=== PATIENT | male | born 1990 | race Caucasian/White ===

== ENCOUNTER 2020-08-04 15:24 | Emergency (ER) | payer BC, SELFPAY ==
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
[2020-08-04 15:46] VITALS: BP 125/81; PULSE 104; RESP 20; TEMP 36.9; O2SAT 98
== END 2020-08-04 16:34 | disposition home or self-care (01) ==
PROVIDERS: Emergency Provider Nurse Practitioner Family
DX: L03.012 Cellulitis of left finger (principal); S60.012A Contusion of left thumb without damage to nail, initial encounter; W23.0XXA Caught, crushed, jammed, or pinched between moving objects, initial encounter; F17.200 Nicotine dependence, unspecified, uncomplicated
CPT/HCPCS: 73130; 99213; G0463

== ENCOUNTER 2020-08-04 15:28 | Emergency (ER) | payer BC, SELFPAY | END 2020-08-04 16:00 | disposition left against medical advice (07) | LOC: ANHED 08-05 00:55 | DX: Z53.21 Procedure and treatment not carried out due to patient leaving prior to being seen by health care provider (principal) | CPT/HCPCS: 99199 ==

== ENCOUNTER 2021-06-08 03:48 | Inpatient (IN) | payer BC, SELFPAY ==
[2021-06-08] VITALS (19 sets, daily range): BP systolic 117–151; BP diastolic 78–108; PULSE 54–103; RESP 12–23; TEMP 36.4–36.7; O2SAT 96–100; BMI 20.2
--- NOTE | ~2021-06-08 | CT_ITS ---
EXAMINATION: 1. CT facial & cervical spine wo DATE: 06/08/2021 05:03 INDICATION: Fall with head injury TECHNIQUE: 1. Computed tomography (CT) of the maxillofacial region and of the cervical spine were performed with out intravenous contrast. Sagittal and coronal reconstructions of both regions were obtained. Automat ed exposure control and iterative reconstruction technique were employed. The dose-length product was 369.33 mGy-cm. COMPARISON: None. FINDINGS: Maxillofacial CT: Soft tissue swelling in the left periorbital and pre malar subcutaneous tissues. No post septal infla mmatory stranding. No maxillofacial fractures. Specifically the lipscomb of the orbits, paranasal sinuse s, the nasal bones, zygomatic arches, mandible and pterygoid plates are all intact. Temporomandibular joints are normal alignment. Nasal septum is midline. Periapical lucency surrounding the roots of th e anterior most left maxillary molar with erosion into the floor of the left maxillary sinus. There i s adjacent mild mucosal thickening along the inferior left maxillary sinus. Additional small mucous r etention cyst in the more anterior left maxillary sinus. Cervical spine CT: Straightening of the normal cervical lordosis which is likely positional although could be seen with muscle spasm. Mild diffuse vertebral body height loss at C5 and C6 which could be either developmenta l or sequela of chronic trauma. No acute fractures identified. Disc heights are normal. Minimal to mi ld cervical facet osteoarthritis most prominent on the left at C4-C5. No central canal or neural fora patricia stenosis. Cervical soft tissues are unremarkable. Visualized airway and apices of lungs are mekhi ar. IMPRESSION: 1. Paravertebral soft tissue swelling. No maxillofacial fractures. 2. Chronic appearing mild diffuse vertebral body height loss at C5 and C6 which could be either devel opmental or sequela of old trauma. No acute osseous abnormality. Reviewed, dictated and finalized at location A. IMPRESSION: 1. Paravertebral soft tissue swelling. No maxillofacial fractures. 2. Chronic appearing mild diffuse vertebral body height loss at C5 and C6 which could be either developmental or sequela of old trauma. No acute osseous abnor mality.
--- NOTE | ~2021-06-08 | CT_ITS ---
EXAMINATION: CT brain wo con DATE: 06/08/2021 05:02 INDICATION: Head injury post fall with bruising at the left eye TECHNIQUE: Computed tomography (CT) of the head was performed without intravenous contrast. Sagittal and coronal reconstructions were performed. The mA was adjusted according to patient size. Iterative reconstruction technique was employed. The dose-length product was 605.33 mGy-cm. COMPARISON: head CT dated 10/19/2019 FINDINGS: Left periorbital soft tissue swelling. The orbits are otherwise normal with no post septal inflammato ry stranding. No fracture. No acute intracranial hemorrhage, acute infarction or abnormal extra axial fluid collection. Ventricles are normal and symmetric. No mass/mass effect. The paranasal sinuses an d mastoid air cells are normal. IMPRESSION: 1. No fracture or acute intracranial process. Reviewed, dictated and finalized at location A.
--- NOTE | ~2021-06-08 | CT_ITS ---
EXAMINATION: CT abdomen pelvis w con EXAM DATE: 06/08/2021 05:38 INDICATION: Abdominal pain, elevated lipase, and LFT's. TECHNIQUE: Spiral CT of the abdomen and pelvis was performed following intravenous injection of 100 m L Omnipaque 350. Axial, coronal and sagittal images of the abdomen and pelvis were reviewed. The do se-length product (DLP) for this examination was 284.61 mGy-cm. The exposure was tailored according to patient size (auto mA exposure control), and iterative reconstruction (ASIR) was used as additiona l dose reduction technique. There is no prior study for comparison. FINDINGS: There is hepatic steatosis without suspicious focal lesion identified. Spleen, adrenal glan ds, pancreas are unremarkable. Gallbladder is unremarkable. No biliary obstruction. Surgical denny es from right-sided nephrectomy. No left hydronephrosis. The prostate is unremarkable. Some diffuse bladder wall thickening, could indicate chronic cystitis. Acute cystitis not excludable. There is n o retroperitoneal or pelvic lymphadenopathy. There is fat stranding in the right nephrectomy bed, also extending down the colic gutter where the a ppendix happens to be. No appendicitis is suspected. The stomach and small bowel are unremarkable. There is expected amount of colonic stool. No free intraperitoneal gas. The heart is normal in si ze. There are no pericardial or pleural effusions. The lung bases are unremarkable. There are no o steoblastic or osteolytic lesions identified. Right hip gamma nail. IMPRESSION: 1. Hepatic steatosis. 2. Right-sided nephrectomy. Reviewed, dictated and finalized at location B.
--- NOTE | 2021-06-08 04:17 | ECG_ITS ---
Measurements Intervals [place] Rate: 63 P: 68 RI: 136 QRS: 67 QRSD: 85 T: 46 QT: 439 QTc: 452 Interpretive Statements SINUS RHYTHM PEAKED T WAVES- CONSIDER HYPERKALEMIA OR ISCHEMIA BASELINE ARTIFACT- II, III, AVR, AVF, V3-V6 ABNORMAL ECG Electronically Signed On 06-08-2021 8:03:12 CDT by Jonathan Aquino D.O.
--- NOTE | 2021-06-08 04:21 | ED.GENADULT ---
HPI - General Adult General Chief complaint: Alcohol Stated complaint: withdrawls Time Seen by Provider: 06/08/21 04:02 History of Present Illness HPI narrative: Patient 30-year-old gentleman who presents the emergency department with chief complaint of alcohol withdrawal. Patient reports that he has history of alcohol abuse and drinks about a pint today patient reports that he decided to stop drinking several days ago and reports that now he started to feel very shaky has a headache fell several days ago and struck his face against a counter the patient reports that he is concerned that he may be going into withdrawals and has had seizures before in the past and is been complicated before with severe delirium tremens when he was hospitalized at [facility] after a trauma. Related Data Allergies Allergy/AdvReac Type Severity Reaction Status Date / Time Penicillins Allergy Unknown Unknown Verified 06/08/21 04:02 Review of Systems Review of Systems: A 10 system review of systems was completed on the patient and is negative except for what is stated in the HPI. Nursing and ancillary documentation was reviewed. PMFSH Past Medical History Medical History Alcoholism Surgical History Surgical History No significant past surgical history Family History Family History Father Diabetes mellitus Hypertension Other Family history of cardiovascular disease Social History Social History Smoking status: Current every day smoker Alcohol intake: current Gender identity (if verbalized by the patient): Male Exam Narrative: GENERAL: Well-appearing, well-nourished, and in no acute distress. HEAD: Normocephalic, atraumatic. EYES: PERRLA and EOMI. there is ecchymosis around the left orbit ENT: Nares clear, no rhinorrhea or epistaxis. Mucous membranes moist. NECK: Supple. CHEST: Clear to auscultation. No respiratory distress. HEART: Regular rate and rhythm. No murmur heard. Normal peripheral pulses. ABDOMEN: Soft, nontender, nondistended, normal active bowel sounds. EXTREMITIES: Normal range of motion. No edema. SKIN: Warm, dry, no rash. NEURO: No focal deficits. Alert and oriented x3. Patient is tremulous PSYCH: Normal mood and affect. Course Vital Signs Vital signs: Vital Signs Temperature 36.6 C 06/08/21 03:58 Pulse Rate 80 06/08/21 03:58 Respiratory Rate 12 06/08/21 03:58 Blood Pressure 130/91 H 06/08/21 03:58 Pulse Oximetry 99 06/08/21 03:58 Temperature 36.6 C 06/08/21 03:58 Pulse Rate 62 06/08/21 06:55 Respiratory Rate 15 06/08/21 06:55 Blood Pressure 117/86 06/08/21 06:55 Pulse Oximetry 97 06/08/21 06:55 Medical Decision Making Vital Signs Vital Signs: Vital Signs Temperature 36.6 C 06/08/21 03:58 Pulse Rate 80 06/08/21 03:58 Respiratory Rate 12 06/08/21 03:58 Blood Pressure 130/91 H 06/08/21 03:58 Pulse Oximetry 99 06/08/21 03:58 Temperature 36.6 C 06/08/21 03:58 Pulse Rate 62 06/08/21 06:55 Respiratory Rate 15 06/08/21 06:55 Blood Pressure 117/86 06/08/21 06:55 Pulse Oximetry 97 06/08/21 06:55 Lab Data Result diagrams: 06/08/21 04:13 06/08/21 04:13 Labs: Lab Results 06/08/21 06/08/21 06/08/21 Range/Units 04:11 04:13 04:13 WBC 3.2 L (4.5-10.0) K/mm3 RBC 4.46 L (4.6-6.20) M/mm3 Hgb 13.9 L (14.0-18.0) g/dL Hct 39.9 L (42.0-52.0) % MCV 89.5 (80-100) fl MCH 31.2 (26-34) pg MCHC 34.8 (32-36) g/dl RDW 17.0 H (11.5-14.5) % Plt Count 37 L (150-375) k/mm3 MPV 11.2 H (7.4-10.4) fl Immature Gran % (Auto) 0.3 (0-0.5) % Neut % (Auto) 67.1 (45.5-73.1) % Lymph % (Auto) 23.3 (18.3-
[2021-06-08 04:22] LABS: Glucose Point of Care 101 mg/dl (65-105)
[2021-06-08 04:24] LABS: Basophils Percent Auto 0.9 % (0.2-1.2); Eosinophils Percent Auto 0.3 % (0-4.4); Hematocrit 39.9 % (42.0-52.0); Hemoglobin 13.9 g/dL (14.0-18.0); Immature Granulocyte Absolute 0.01 K/mm3 (0.00-0.031); Immature Granulocyte Percent A 0.3 % (0-0.5); Lymphocytes Absolute Auto 0.75 K/mm3 (0.9-3.2); Lymphocytes Percent Auto 23.3 % (18.3-44.2); Mean Corpuscular HGB Conc 34.8 g/dl (32-36); Mean Corpuscular Hemoglobin 31.2 pg (26-34); Mean Corpuscular Volume 89.5 fl (80-100); Mean Platelet Volume 11.2 fl (7.4-10.4); Monocytes Absolute Auto 0.3 K/mm3 (0.1-0.6); Monocytes Percent Auto 8.1 % (2.6-8.5); Neutrophils Absolute Auto 2.2 K/mm3 (1.3-6.7); Neutrophils Percent Auto 67.1 % (45.5-73.1); Platelet Count Result 37 k/mm3 (150-375); Red Blood Count 4.46 M/mm3 (4.6-6.20); White Blood Count 3.2 K/mm3 (4.5-10.0)
[2021-06-08] MEDS: SODIUM CHLORIDE 0.9% IV 1,000 ML 999 ML IV CONT (04:28)
[2021-06-08] MEDS: LORazepam INJ (*CRX) 2 MG/ML VIAL 1 MG IV PUSH ×5 (04:28→20:49)
[2021-06-08] MEDS: THIAMINE HCL 200 MG/2 ML VIAL 100 MG IV PUSH (04:29)
[2021-06-08] MEDS: ONDANSETRON INJ 4 MG/2 ML VIAL IV PUSH (04:29)
[2021-06-08 04:32] LABS: Ethanol 65 mg/dL (<10)
[2021-06-08 04:35] LABS: Alanine Aminotransferase 315 U/L (4-50); Albumin Level 5.2 g/dL (3.5-5.1); Alkaline Phosphatase 210 U/L (38-126); Anion Gap 19 mmol/L (8-16); Aspartate Amino Transferase 742 U/L (17-59); Bilirubin,Total 2.1 mg/dL (0.2-1.3); Blood Urea Nitrogen 6 mg/dL (9-20); Calcium 10.5 mg/dL (8.4-10.2); Carbon Dioxide 24 mmol/L (22-30); Chloride 94 mmol/L (98-107); Estimated CRCL calculation 137 ml/min; Estimated Glomerular Filt Rate > 60; Glucose 111 mg/dL (65-110); Lipase 607 U/L (23-300); Potassium 3.7 mmol/L (3.4-5.0); Sodium 137 mmol/L (137-145)
[2021-06-08 04:57] LABS: Macrocytosis 1+ (NORMAL); Platelet Estimate Decreased (Adequate)
[2021-06-08 05:12] LABS: Add Urine Microscopic? YES; Appearance Urine Clear (Clear); Bilirubin Urine Negative (Negative); Blood Urine Negative (Negative); Color Urine Amber (Yellow); Glucose Urine UA Negative (Negative); Ketones Urine Trace mg/dL (Negative); Leukocyte Esterase Ur Negative LEU/UL (Negative); Nitrate Urine Negative (Negative); Protein Urine 3+ mg/dL (Negative); RBC Urine 0-2 /hpf (0-2); Specific Grav Ur 1.015 (1.001-1.035); WBC Urine 0-3 /hpf
[2021-06-08] MEDS: THIAMINE HCL INJ 100 MG, FOLIC ACID INJ 1 MG, MULTIVITAMINS-12 INJ VIAL 1 5 ML, MULTIVI... 125 MG IV CONT (05:29)
[2021-06-08 05:37] LABS: Amphetamine Screen Urine Negative (Negative); Barbiturate Screen Urine Negative (Negative); Benzodiazepines Screen Urine Negative (Negative); Cannabinoid Screen Urine Positive (Negative); Cocaine Screen Urine Negative (Negative); Methadone Screen Urine Negative (Negative); Opiate Screen Urine Negative (Negative); Phencyclidine Screen Urine Negative (Negative)
[2021-06-08 06:36] LABS: Lipase 635 U/L (23-300)
[2021-06-08 06:40] LABS: Ethanol 66 mg/dL (<10)
[2021-06-08 06:45] LABS: Lactic Acid Reflex 1.5 mmol/L (0.7-2.1)
[2021-06-08 07:03] LABS: Phosphorus 3.8 mg/dL (2.5-4.5)
[2021-06-08 07:35] LABS: INR 0.9; Prothrombin Time 12.5 Seconds (11.1-14.7)
[2021-06-08 07:36] LABS: Partial Thromboplastin Time 28.7 SECONDS (22.3-36.8)
[2021-06-08] MEDS: MAGNESIUM SULF 4 GM/WATER100ML 4 GM/100 ML BAG IVPB (07:48)
--- NOTE | 2021-06-08 08:51 | ADMGEN ---
This patient, Niles Díaz, was admitted to IMU Room 200-01. Patient/family oriented to hospital policies and general routines including ID bracelet, bed and alarms, visiting hours, pain management, procedures, bathroom and other care routines, personal items, smoking policy, room service/diet, and visiting hours. Information on how to activate the Rapid Response Team has been discussed. Patient/Family are encouraged to report perceived risks to care and to ask questions if they do not understand what they are told or what they should do.
[2021-06-08] MEDS: SODIUM CHLORIDE 0.9% IV 1,000 ML 125 ML IV CONT ×2 (09:49→17:32)
[2021-06-08] MEDS: chlordiazePOXIDE (*CRX) 25 MG CAPSULE 50 MG PO ×2 (12:20→17:32)
[2021-06-08] MEDS: ACETAMINOPHEN 325 MG TABLET 650 MG PO (13:27)
[2021-06-08 15:35] LABS: Anion Gap 12 mmol/L (8-16); Blood Urea Nitrogen 6 mg/dL (9-20); Calcium 9.5 mg/dL (8.4-10.2); Carbon Dioxide 25 mmol/L (22-30); Chloride 100 mmol/L (98-107); Estimated CRCL calculation 134 ml/min; Estimated Glomerular Filt Rate > 60; Glucose 91 mg/dL (65-110); Magnesium 2.2 mg/dL (1.6-2.3); Potassium 4.3 mmol/L (3.4-5.0); Sodium 137 mmol/L (137-145)
--- NOTE | 2021-06-08 16:37 | PM.IMHP ---
H&P: HPI History of Present Illness Date/Time: 06/08/21 16:37 Patient is a 30-year-old male with history of alcohol abuse patient has been drinking a pint of liquor every day patient presented emergency depart stated he was stop drinking and has not drank for few days and now is quite tremolos, and patient has history of withdrawal seizures, and patient is high risk of DT, from emergency depart patient was started on Ativan as needed, thiamine folic acid, will continue to monitor with CIWA protocol and add Librium,patient states is feeling little better compared to when he arrived, denies any abdominal pain nausea or vomiting fever or chills, recently patient had fell and has improved along left orbit. Chief Complaint: alcohol withdrawal Review of Systems Review of Systems: All systems reviewed & are unremarkable except as noted in HPI and below PMFSH Past Medical History Medical History Alcoholism Surgical History Surgical History No significant past surgical history Family History Family History Father Diabetes mellitus Hypertension Other Family history of cardiovascular disease Social History Social History Smoking packs per day: 1 Smoking cigarettes per day: 20.0 Years smoked: 6 Smoking pack-years: 6.00 Smoking status: Current every day smoker Tobacco type: cigarettes Alcohol intake: current Substance use: current Substance use type: marijuana Other substance usage details: drinks 1/5 vodka daily - last drink 06/06/21 Last use: 06/06/21 Gender identity (if verbalized by the patient): Male Spiritual care concerns: No Meds Home Medications and Allergies Home Medications Medication Instructions Recorded Confirmed Type No Home Medications 06/08/21 06/08/21 History Allergies Allergy/AdvReac Type Severity Reaction Status Date / Time Penicillins Allergy Unknown Unknown Verified 06/08/21 09:25 Vital Signs Vital Signs - 24 hr 06/08/21 03:58 06/08/21 04:44 06/08/21 05:50 Temperature 98 F Pulse Rate 80 73 75 Respiratory Rate 12 16 14 Blood Pressure 130/91 H 127/78 131/84 Pulse Oximetry 99 100 96 06/08/21 06:55 06/08/21 08:18 06/08/21 09:08 Temperature 98.0 F Pulse Rate 62 101 H 103 H Respiratory Rate 15 19 20 Blood Pressure 117/86 132/79 133/78 Pulse Oximetry 97 100 100 06/08/21 10:00 06/08/21 12:00 06/08/21 12:54 Temperature 97.8 F Pulse Rate 76 78 83 Respiratory Rate 20 Blood Pressure 137/79 Pulse Oximetry 100 06/08/21 14:00 Temperature Pulse Rate 69 Respiratory Rate Blood Pressure Pulse Oximetry Exam Narrative: atient is comfortable, NAD HEENT: eyes are clear and none icteric, bruising along left orbit LUNGS:CTA HEART: RR S1S2 ABD: BS+, Soft and nontender Lower extremities: no edema SKIN: nonjaundiced Neuro: grossly intact. H&P: Results Labs Labs: Short CBC 06/08/21 Range/Units 04:13 WBC 3.2 L (4.5-10.0) K/mm3 Hgb 13.9 L (14.0-18.0) g/dL Hct 39.9 L (42.0-52.0) % Plt Count 37 L (150-375) k/mm3 BMP 06/08/21 06/08/21 04:13 14:42 Sodium 137 137 Potassium 3.7 4.3 Chloride 94 L 100 Carbon Dioxide 24 25 BUN 6 L 6 L Creatinine 0.70 0.70 Glucose 111 H 91 Calcium 10.5 H 9.5 Liver Function 06/08/21 Range/Units 04:13 Total Bilirubin 2.1 H (0.2-1.3) mg/dL AST 742 H (17-59) U/L ALT 315 H (4-50) U/L Alkaline Phosphatase 210 H (38-126) U/L Albumin 5.2 H (3.5-5.1) g/dL Urine 06/08/21 Range/Units 04:55 Urine Color Carmen (Yellow) Urine Appearance Clear (Clear) Urine pH 7.0 (5.0-9.0) Ur Specific [place] 1.015 (1.001-1.035) Urine Protein 3+ H (Negative) mg/dL Urine Glucose (UA) Nega
--- NOTE | 2021-06-08 21:33 | PM.EVENT ---
Event Note Event Note Event Note: I was called by the imu nurse that the patients ciwa score is 28 and the patient is hallucinating and shaking.i called the intentesivist and we plan to move the patient to icu on a precedex drip.
--- NOTE | 2021-06-08 22:34 | PC.NURSE ---
This patient, Niles Díaz, was transferred to ICU3 on 06/08/21 at 2225. Personal belongings sent with patient. Report given to Zina HUFF. Appropriate documentation sent with patient.
[2021-06-08] MEDS: dexmedeTOMIDine 400 MCG/100 ML 400 MCG/100 ML BAG IV CONT (22:36)
--- NOTE | 2021-06-08 22:52 | PC.NURSE ---
This patient, Niles Díaz, was received from [facility] on 06/08/21 at 2220. Patient/family oriented to unit policies and routines
[2021-06-09] VITALS (16 sets, daily range): BP systolic 111–138; BP diastolic 70–99; PULSE 50–140; RESP 12–24; TEMP 36.8–36.9; O2SAT 96–100; BMI 21.7
[2021-06-09] MEDS: chlordiazePOXIDE (*CRX) 25 MG CAPSULE 50 MG PO ×5 (00:35→23:27)
[2021-06-09 01:30] LABS: Glucose Point of Care 87 mg/dl (65-105)
[2021-06-09] MEDS: SODIUM CHLORIDE 0.9% IV 1,000 ML 125 ML IV CONT ×2 (01:43→10:23)
[2021-06-09 04:32] LABS: Hematocrit 37.1 % (42.0-52.0); Hemoglobin 12.4 g/dL (14.0-18.0); Immature Platelet Fraction Pct 11.3 % (0.9-11.2); Mean Corpuscular HGB Conc 33.4 g/dl (32-36); Mean Corpuscular Hemoglobin 30.8 pg (26-34); Mean Corpuscular Volume 92.1 fl (80-100); Mean Platelet Volume 9.3 fl (7.4-10.4); Platelet Count Result 33 k/mm3 (150-375); Red Blood Count 4.03 M/mm3 (4.6-6.20); Red Cell Distribution Width 16.8 % (11.5-14.5); White Blood Count 2.9 K/mm3 (4.5-10.0)
[2021-06-09 05:10] LABS: Alanine Aminotransferase 230 U/L (4-50); Albumin Level 4.1 g/dL (3.5-5.1); Alkaline Phosphatase 158 U/L (38-126); Anion Gap 11 mmol/L (8-16); Aspartate Amino Transferase 491 U/L (17-59); Bilirubin,Total 1.5 mg/dL (0.2-1.3); Blood Urea Nitrogen 6 mg/dL (9-20); Calcium 9.5 mg/dL (8.4-10.2); Carbon Dioxide 22 mmol/L (22-30); Chloride 105 mmol/L (98-107); Estimated CRCL calculation 155 ml/min; Estimated Glomerular Filt Rate > 60; Glucose 99 mg/dL (65-110); Magnesium 1.9 mg/dL (1.6-2.3); Potassium 3.7 mmol/L (3.4-5.0); Sodium 138 mmol/L (137-145)
--- NOTE | 2021-06-09 11:01 | WPDCNINT ---
Assessment and Plan Assessment and plan (1) Alcohol withdrawal syndrome: Qualifiers: Complication of substance-induced condition: uncomplicated Qualified Code(s): F10.230 - Alcohol dependence with withdrawal, uncomplicated Code(s): F10.239 - Alcohol dependence with withdrawal, unspecified Status: Acute Assessment and Plan: Patient presented to the ER 06/08/2021 with complains of tremors, headaches and possible hallucinations secondary to alcohol withdrawal as he stopped drinking a few days back. - he normally drinks about a pint of hard liquor daily. -patient was hallucinating last night along with getting agitated, patient was transferred to the ICU for Precedex infusion -currently receiving Librium and weaning the Precedex infusion -he is on Ativan 2 mg IV Q 2 p.r.n. -continue to monitor his CIWA score (2) Thrombocytopenia: Code(s): D69.6 - Thrombocytopenia, unspecified Status: Acute Assessment and Plan: Thrombocytopenia likely related to alcoholism and depressed bone marrow function due to alcohol abuse -no active bleed noted, will continue to monitor (3) Leukopenia: Code(s): D72.819 - Decreased white blood cell count, unspecified Status: Acute Assessment and Plan: Likely related to alcoholism, continue to monitor (4) Elevated LFTs: Code(s): R79.89 - Other specified abnormal findings of blood chemistry Status: Acute Assessment and Plan: CT scan of the abdomen and pelvis showed hepatic steatosis, right-sided nephrectomy -LFTs could be elevated related to her alcoholism as well as hepatic steatosis -continue to monitor -patient has hyperbilirubinemia which could be related to alcoholic liver disease, will continue to monitor (5) Head injury: Code(s): S09.90XA - Unspecified injury of head, initial encounter Status: Acute Assessment and Plan: Patient stated he hit his head on the counter, CT scan of the head did not show any acute intracranial process or fractures -CT scan of the cervical spine and facial bones showed paravertebral soft tissue swelling, no maxillofacial fractures. Chronic appearing mild diffuse little body height loss at C5 and C6 which could be either development of sequela of old trauma. No osseous abnormalities - Additional Plan Discussed with patient updated with his condition and plan of care. He is aware that he is on Precedex infusion which is being weaned. Patient currently is not hungry but loss for food when needed Code status: Full code Critical care time spent: 43 minutes This dictation may have been done utilizing a voice recognition system. Attempts have been made to correct errors. However, there may be uncorrected grammatical, spelling, and recognition errors present. Due to a high probability of clinically significant, life threatening deterioration, the patient required my highest level of preparedness to intervene emergently and I personally spent this critical care time directly and personally managing the patient. This critical care time included obtaining a history; examining the patient; pulse oximetry; ordering and review of studies; arranging urgent treatment with development of a management plan; evaluation of patient's response to treatment; frequent reassessment; and discussions with other providers. It was exclusive of separately billable procedures and treating other patients and teaching time. Please see Assessment and Plan section and the rest of the note for further information on patient assessment and treatment [employer] Consult Note Consult date: 06/09/21 Time Seen: 07:04 Reason for consult: Alcohol withdrawal, agitation, hallucination, possible DTs HPI: Niles Díaz is a 30 year old male with significant past medical history of alcohol abuse, presented the ED on 06/08/2021 with complaints of alcohol withdrawal. Patient states he drinks about a pt and a and imported into
[2021-06-09] MEDS: LORazepam INJ (*CRX) 2 MG/ML VIAL IV PUSH ×4 (12:36→23:00)
[2021-06-09] MEDS: polyethylene glycoL 3350 17 GM POWD.PACK PO (18:15)
[2021-06-10] VITALS (11 sets, daily range): BP systolic 127–151; BP diastolic 84–99; PULSE 59–99; RESP 16–20; TEMP 36.2–37.3; O2SAT 100
[2021-06-10] MEDS: LORazepam INJ (*CRX) 2 MG/ML VIAL IV PUSH ×4 (03:41→20:13)
[2021-06-10 04:33] LABS: Hematocrit 38.3 % (42.0-52.0); Hemoglobin 13.1 g/dL (14.0-18.0); Immature Platelet Fraction Pct 9.9 % (0.9-11.2); Mean Corpuscular HGB Conc 34.2 g/dl (32-36); Mean Corpuscular Hemoglobin 31.6 pg (26-34); Mean Corpuscular Volume 92.3 fl (80-100); Mean Platelet Volume 11.2 fl (7.4-10.4); Platelet Count Result 56 k/mm3 (150-375); Red Blood Count 4.15 M/mm3 (4.6-6.20); Red Cell Distribution Width 16.8 % (11.5-14.5); White Blood Count 3.7 K/mm3 (4.5-10.0)
[2021-06-10 04:44] LABS: Alanine Aminotransferase 269 U/L (4-50); Albumin Level 4.3 g/dL (3.5-5.1); Alkaline Phosphatase 175 U/L (38-126); Anion Gap 10 mmol/L (8-16); Aspartate Amino Transferase 457 U/L (17-59); Bilirubin,Total 1.1 mg/dL (0.2-1.3); Blood Urea Nitrogen 6 mg/dL (9-20); Calcium 9.9 mg/dL (8.4-10.2); Carbon Dioxide 25 mmol/L (22-30); Chloride 103 mmol/L (98-107); Estimated CRCL calculation 144 ml/min; Estimated Glomerular Filt Rate > 60; Glucose 94 mg/dL (65-110); Magnesium 1.8 mg/dL (1.6-2.3); Potassium 3.9 mmol/L (3.4-5.0); Sodium 138 mmol/L (137-145)
[2021-06-10] MEDS: chlordiazePOXIDE (*CRX) 25 MG CAPSULE 50 MG PO ×4 (06:05→23:47)
[2021-06-10] MEDS: ACETAMINOPHEN 325 MG TABLET 650 MG PO ×2 (06:13→12:04)
[2021-06-10] MEDS: FOLIC ACID 1 MG TABLET PO (09:23)
[2021-06-10] MEDS: THIAMINE HCL 100 MG TABLET PO (09:23)
--- NOTE | 2021-06-10 09:40 | PM.IMPN ---
Progress Note: A&P Assessment and Plan (1) Alcohol withdrawal syndrome: Qualifiers: Complication of substance-induced condition: uncomplicated Qualified Code(s): F10.230 - Alcohol dependence with withdrawal, uncomplicated Code(s): F10.239 - Alcohol dependence with withdrawal, unspecified Status: Acute Assessment and Plan: Patient presented to the ER 06/08/2021 with complains of tremors, headaches and possible hallucinations secondary to alcohol withdrawal as he stopped drinking a few days back. - he normally drinks about a pint of hard liquor daily. -06/08: Patient was transferred from medical floor to ICU for Precedex infusion due to being agitated, hallucinating and possible DTs due to alcohol withdrawal. - -currently receiving Librium and weaning the Precedex infusion -he is on Ativan 2 mg IV Q 2 p.r.n. -continue to monitor his CIWA score (2) Thrombocytopenia: Code(s): D69.6 - Thrombocytopenia, unspecified Status: Acute Assessment and Plan: Thrombocytopenia likely related to alcoholism and depressed bone marrow function due to alcohol abuse -no active bleed noted, will continue to monitor (3) Leukopenia: Code(s): D72.819 - Decreased white blood cell count, unspecified Status: Acute Assessment and Plan: Likely related to alcoholism, continue to monitor (4) Elevated LFTs: Code(s): R79.89 - Other specified abnormal findings of blood chemistry Status: Acute Assessment and Plan: CT scan of the abdomen and pelvis showed hepatic steatosis, right-sided nephrectomy -LFTs could be elevated related to her alcoholism as well as hepatic steatosis -continue to monitor -patient has hyperbilirubinemia which could be related to alcoholic liver disease, will continue to monitor (5) Head injury: Code(s): S09.90XA - Unspecified injury of head, initial encounter Status: Acute Assessment and Plan: Patient stated he hit his head on the counter, CT scan of the head did not show any acute intracranial process or fractures -CT scan of the cervical spine and facial bones showed paravertebral soft tissue swelling, no maxillofacial fractures. Chronic appearing mild diffuse little body height loss at C5 and C6 which could be either development of sequela of old trauma. No osseous abnormalities - Additional Plan Discussed with patient updated with his condition and plan of care. He is aware that he is on Precedex infusion which is being weaned. Patient currently is not hungry but loss for food when needed Code status: Full code Critical care time spent: 43 minutes This dictation may have been done utilizing a voice recognition system. Attempts have been made to correct errors. However, there may be uncorrected grammatical, spelling, and recognition errors present. Due to a high probability of clinically significant, life threatening deterioration, the patient required my highest level of preparedness to intervene emergently and I personally spent this critical care time directly and personally managing the patient. This critical care time included obtaining a history; examining the patient; pulse oximetry; ordering and review of studies; arranging urgent treatment with development of a management plan; evaluation of patient's response to treatment; frequent reassessment; and discussions with other providers. It was exclusive of separately billable procedures and treating other patients and teaching time. Please see Assessment and Plan section and the rest of the note for further information on patient assessment and treatment Subjective Date/time seen: 06/10/21 09:40 Interval history: 30 year old male with significant past medical history of alcohol abuse, presented the ED on 06/08/2021 with complaints of alcohol withdrawal with symptoms of agitation, hallucinations and possible DTs 06/10/21: Patient was transferred from the medical floor to the ICU
[2021-06-10] MEDS: MAGNESIUM OXIDE 400 MG TABLET PO (10:57)
--- NOTE | 2021-06-10 15:04 | PCPTNOTE ---
Attempted to see patient this afternoon for PT evaluation, patient refused at this time too tired and is going back to sleep, will try again tomorrow.
--- NOTE | 2021-06-10 16:49 | PC.NURSE ---
This patient, Niles Díaz, was transferred to [ 231] on 06/10/21 at 1649. Personal belongings sent with patient. Report given to [ DARIA Obrien @ [phone]]. Appropriate documentation sent with patient.
--- NOTE | 2021-06-10 22:15 | PC.NURSE ---
This patient, Niles Díaz, was transferred to [facility] on 06/10/21 at 2210. Personal belongings sent with patient. Report given to Madhuri. Appropriate documentation sent with patient.
--- NOTE | 2021-06-10 23:10 | PC.NURSE ---
Pt received from IMU report received from Parvin. Pt alert and oriented and introduced to staff.
[2021-06-11] VITALS (10 sets, daily range): BP systolic 120–134; BP diastolic 80–90; PULSE 55–125; RESP 16–18; TEMP 36.4–36.9; O2SAT 94–100
[2021-06-11] MEDS: LORazepam INJ (*CRX) 2 MG/ML VIAL IV PUSH ×4 (00:09→20:43)
[2021-06-11 05:49] LABS: Hemoglobin 12.7 g/dL (14.0-18.0); Mean Corpuscular HGB Conc 33.4 g/dl (32-36); Mean Corpuscular Hemoglobin 31.5 pg (26-34); Mean Corpuscular Volume 94.3 fl (80-100); Mean Platelet Volume 10.9 fl (7.4-10.4); Platelet Count Result 87 k/mm3 (150-375); Red Blood Count 4.03 M/mm3 (4.6-6.20); Red Cell Distribution Width 17.1 % (11.5-14.5); White Blood Count 4.3 K/mm3 (4.5-10.0)
[2021-06-11 05:58] LABS: Alanine Aminotransferase 221 U/L (4-50); Albumin Level 4.2 g/dL (3.5-5.1); Alkaline Phosphatase 148 U/L (38-126); Anion Gap 10 mmol/L (8-16); Aspartate Amino Transferase 263 U/L (17-59); Bilirubin,Total 0.8 mg/dL (0.2-1.3); Blood Urea Nitrogen 8 mg/dL (9-20); Calcium 9.7 mg/dL (8.4-10.2); Carbon Dioxide 24 mmol/L (22-30); Chloride 103 mmol/L (98-107); Estimated CRCL calculation 136 ml/min; Estimated Glomerular Filt Rate > 60; Glucose 90 mg/dL (65-110); Magnesium 1.7 mg/dL (1.6-2.3); Potassium 3.8 mmol/L (3.4-5.0); Sodium 137 mmol/L (137-145)
[2021-06-11] MEDS: chlordiazePOXIDE (*CRX) 10 MG CAPSULE 50 MG PO ×3 (07:30→17:18)
[2021-06-11] MEDS: THIAMINE HCL 100 MG TABLET PO (08:17)
[2021-06-11] MEDS: FOLIC ACID 1 MG TABLET PO (08:17)
--- NOTE | 2021-06-11 16:29 | PM.IMPN ---
Progress Note: A&P Assessment and Plan (1) Alcohol withdrawal syndrome: Qualifiers: Complication of substance-induced condition: uncomplicated Qualified Code(s): F10.230 - Alcohol dependence with withdrawal, uncomplicated Code(s): F10.239 - Alcohol dependence with withdrawal, unspecified Status: Acute Assessment and Plan: 06/11, on 06/08 at night patient went to full DT and was transfer to ICU and placed on Precedex IV, Ativan, and librium pPatient was taken off Precedex on 06/10 remain in the ICU no seen by business support liaison and transferred out of the ICU on 06/11, today patient appears still tremulous, his blood pressure rises with active, he is clinically stable will continue CIWA protocol with Librium, will monitor his electrolytes, will have a PT OT evaluate the patient, if remains clinically stable may discharge patient home tomorrow. (2) Thrombocytopenia: Code(s): D69.6 - Thrombocytopenia, unspecified Status: Acute Assessment and Plan: most likely secondary to alcohol abuse, his platelets are trending up. (3) Elevated LFTs: Code(s): R79.89 - Other specified abnormal findings of blood chemistry Status: Acute Assessment and Plan: most likely secondary to alcohol abuse his LFT is trending down, will order acute hepatitis panel and liver ultrasound. (4) Hypomagnesemia: Code(s): E83.42 - Hypomagnesemia Status: Acute Assessment and Plan: will monitor and supplement Subjective Date/time seen: 06/11/21 16:29 Patient is a 30-year-old male with history of alcohol abuse patient has been drinking a pint of liquor every day patient presented emergency depart stated he was stop drinking and has not drank for few days and now is quite tremolos, and patient has history of withdrawal seizures, and patient is high risk of DT, from emergency depart patient was started on Ativan as needed, thiamine folic acid, will continue to monitor with CIWA protocol and add Librium,patient states is feeling little better compared to when he arrived, denies any abdominal pain nausea or vomiting fever or chills, recently patient had fell and has improved along left orbit. Chief Complaint: alcohol withdrawal 06/11, on 06/08 at night patient went to full DT and was transfer to ICU and placed on Precedex IV, Ativan, and librium pPatient was taken off Precedex on 06/10 remain in the ICU no seen by business support liaison and transferred out of the ICU on 06/11, today patient appears still tremulous, his blood pressure rises with active, he is clinically stable will continue CIWA protocol with Librium, will monitor his electrolytes, will have a PT OT evaluate the patient, if remains clinically stable may discharge patient home tomorrow. Review of Systems Review of Systems: All systems reviewed & are unremarkable except as noted in HPI and below Exam Narrative: atient is comfortable, NAD HEENT: eyes are clear and none icteric, bruising along left orbit LUNGS:CTA HEART: RR S1S2 ABD: BS+, Soft and nontender Lower extremities: no edema SKIN: nonjaundiced Neuro: grossly intact. Objective Data Vital Signs Vital Signs: Vital Signs - 24 hr 06/10/21 17:35 06/10/21 20:00 06/10/21 20:31 Temperature 99.2 F 97.2 F L Pulse Rate 72 71 72 Pulse Rate [Bilateral Pedal (Dorsalis Pedis) Palpation] Pulse Rate [Monitor] 71 Respiratory Rate 18 20 Blood Pressure 127/93 H 141/93 H 141/93 H Pulse Oximetry 100 100 100 06/10/21 22:55 06/11/21 00:00 06/11/21 03:51 Temperature 97.6 F 98.2 F Pulse Rate 59 L 60 55 L Pulse Rate [Bilateral Pedal (Dorsalis Pedis) Palpation] Pulse Rate [Monitor] Respiratory Rate 16 16 Blood Pressure 134/90 122/83 Pulse Oximetry 100 100 06/11/21 04:00 06/11/21 08:00 06/11/21 10:26 Temperature Pulse Rate 69 64 Pulse Rate [Bilateral Pedal (Dorsalis Pedis) Palpation] 63 Pulse Rate [Monitor] 71 Respiratory Rate Blood Pressure P
[2021-06-12] VITALS (9 sets, daily range): BP systolic 107–141; BP diastolic 67–76; PULSE 60–102; RESP 16–18; TEMP 36.1–36.7; O2SAT 96–100
[2021-06-12] MEDS: chlordiazePOXIDE (*CRX) 10 MG CAPSULE 50 MG PO ×5 (00:12→23:56)
[2021-06-12] MEDS: LORazepam INJ (*CRX) 2 MG/ML VIAL IV PUSH (00:15)
[2021-06-12 06:20] LABS: Hematocrit 41.3 % (42.0-52.0); Hemoglobin 13.8 g/dL (14.0-18.0); Immature Platelet Fraction Pct 5.7 % (0.9-11.2); Mean Corpuscular HGB Conc 33.4 g/dl (32-36); Mean Corpuscular Volume 95.8 fl (80-100); Platelet Count Result 149 k/mm3 (150-375); Red Blood Count 4.31 M/mm3 (4.6-6.20); Red Cell Distribution Width 17.6 % (11.5-14.5); White Blood Count 4.8 K/mm3 (4.5-10.0)
[2021-06-12 06:33] LABS: Alanine Aminotransferase 240 U/L (4-50); Albumin Level 4.6 g/dL (3.5-5.1); Alkaline Phosphatase 144 U/L (38-126); Anion Gap 13 mmol/L (8-16); Aspartate Amino Transferase 252 U/L (17-59); Bilirubin,Total 0.8 mg/dL (0.2-1.3); Blood Urea Nitrogen 10 mg/dL (9-20); Calcium 10.2 mg/dL (8.4-10.2); Carbon Dioxide 23 mmol/L (22-30); Chloride 104 mmol/L (98-107); Estimated CRCL calculation 139 ml/min; Estimated Glomerular Filt Rate > 60; Glucose 89 mg/dL (65-110); Magnesium 1.9 mg/dL (1.6-2.3); Potassium 3.7 mmol/L (3.4-5.0); Sodium 140 mmol/L (137-145)
[2021-06-12] MEDS: FOLIC ACID 1 MG TABLET PO (08:04)
[2021-06-12] MEDS: THIAMINE HCL 100 MG TABLET PO (08:04)
--- NOTE | 2021-06-12 13:15 | PM.IMPN ---
Progress Note: A&P Assessment and Plan (1) Alcohol withdrawal syndrome: Qualifiers: Complication of substance-induced condition: uncomplicated Qualified Code(s): F10.230 - Alcohol dependence with withdrawal, uncomplicated Code(s): F10.239 - Alcohol dependence with withdrawal, unspecified Status: Acute Assessment and Plan: 06/08 at night patient went to full DT and was transfer to ICU and placed on Precedex IV, Ativan, and librium Patient was taken off Precedex on 06/10 remain in the ICU no seen by balancer scale and transferred out of the ICU on 06/11 Requested excessive lorazepam overnight (in spite of receiving chlordiazepoxide 50mg PO q 6h scheduled) Has no definite discharge plan for f/u for mental health or alcohol related issues ( My mom is working on it. ) Last episode of alcohol w/d lasted 15 days (per patient hx) Has hx of DEPRESSION AND ANXIETY that is currently untreated Would benefit from INPATIENT rehab NOT mentally stable for discharge to home (2) Thrombocytopenia: Code(s): D69.6 - Thrombocytopenia, unspecified Status: Acute Assessment and Plan: most likely secondary to alcohol abuse, his platelets are trending up. (3) Elevated LFTs: Code(s): R79.89 - Other specified abnormal findings of blood chemistry Status: Acute Assessment and Plan: most likely secondary to alcohol abuse his LFT is trending down Hepatitis ABC panel negative (4) Hypomagnesemia: Code(s): E83.42 - Hypomagnesemia Status: Acute Assessment and Plan: Received supplementation Subjective Date/time seen: 06/12/21 13:15 Interval history: Admitted 06/08 AM for alcohol w/d. 06/12 visit: Required multiple doses of lorazepam for anxiety overnight. Wants to go home. Denied pain, sob, swelling, rash, bleeding, gi/gu issues. Review of Systems Review of Systems: All systems reviewed & are unremarkable except as noted in HPI and below Exam Narrative: HEENT: PERRL, sclerae nonicteric, pharyngeal mucosa pink and intact NECK: No JVD CHEST: Clear to auscultation. Normal effort. HEART: NL S1/S2, regular, no murmur ABDOMEN: BS+, soft, nontender, no mass, no bruits EXTREMITIES: No cyanosis, edema, or clubbing NEUROLOGIC: CN intact and symmetric to inspection. MUSCULOSKELETAL: Tone and strength symmetric. PSYCH: Alert. Oriented to person, place, and time. ANXIOUS. Objective Data Vital Signs Vital Signs: Vital Signs - 24 hr 06/11/21 13:57 06/11/21 16:00 06/11/21 20:00 Temperature 98.1 F Pulse Rate 99 75 65 Respiratory Rate 18 Blood Pressure 126/80 Pulse Oximetry 99 06/11/21 21:07 06/12/21 00:00 06/12/21 04:00 Temperature 98.4 F Pulse Rate 63 63 60 Respiratory Rate 16 Blood Pressure 120/86 Pulse Oximetry 100 06/12/21 05:32 06/12/21 08:00 06/12/21 12:00 Temperature 96.9 F L Pulse Rate 60 64 77 Respiratory Rate 16 Blood Pressure 107/67 Pulse Oximetry 100 Intake/Output Intake/Output: Intake & Output 06/09/21 06/10/21 06/11/21 06/12/21 23:59 23:59 23:59 23:59 Intake Total 6334 2340 920 390 Output Total 3475 2300 700 500 Balance 2915 40 220 -110 Meds/Results Medications: Active Medications Generic Name Dose Route Start Last Admin Trade Name Freq PRN Reason Stop Dose Admin Acetaminophen 650 mg 06/08/21 12:30 06/10/21 12:04 Acetaminophen 325 Mg Tablet PO 650 mg Q6H PRN Administration Mild Pain (1-3) or Fever Chlordiazepoxide HCl 50 mg 06/11/21 07:00 06/12/21 12:02 Chlordiazepoxide (*Crx) 10 Mg Capsule PO 50 mg Q6HR CAYLA Administration Folic Acid 1 mg 06/10/21 09:00 06/12/21 08:04 Folic Acid 1 Mg Tablet PO 1 mg DAILY CAYLA Administration Lorazepam 2 mg 06/08/21 21:31 06/12/21 00:15 Lorazepam Inj (*Crx) 2 Mg/Ml Vial IV PUSH 2 mg Q2H PRN Administration Alcohol Withdrawal Melatonin 3 mg 06/10/21 14:54 Melatonin 3 Mg Tablet PO HS PRN In
[2021-06-13] VITALS: PULSE 74
[2021-06-13 04:00] VITALS: PULSE 87
[2021-06-13 05:33] LABS: Hematocrit 40.3 % (42.0-52.0); Hemoglobin 13.4 g/dL (14.0-18.0); Mean Corpuscular HGB Conc 33.3 g/dl (32-36); Mean Corpuscular Hemoglobin 31.8 pg (26-34); Mean Corpuscular Volume 95.5 fl (80-100); Mean Platelet Volume 9.5 fl (7.4-10.4); Platelet Count Result 156 k/mm3 (150-375); Red Blood Count 4.22 M/mm3 (4.6-6.20); Red Cell Distribution Width 17.9 % (11.5-14.5); White Blood Count 5.3 K/mm3 (4.5-10.0)
[2021-06-13] MEDS: chlordiazePOXIDE (*CRX) 10 MG CAPSULE 50 MG PO (05:52)
[2021-06-13 05:55] LABS: Alanine Aminotransferase 235 U/L (4-50); Albumin Level 4.7 g/dL (3.5-5.1); Alkaline Phosphatase 143 U/L (38-126); Anion Gap 13 mmol/L (8-16); Aspartate Amino Transferase 195 U/L (17-59); Bilirubin,Total 0.6 mg/dL (0.2-1.3); Blood Urea Nitrogen 14 mg/dL (9-20); Calcium 10.2 mg/dL (8.4-10.2); Carbon Dioxide 24 mmol/L (22-30); Chloride 103 mmol/L (98-107); Estimated CRCL calculation 123 ml/min; Estimated Glomerular Filt Rate > 60; Glucose 98 mg/dL (65-110); Magnesium 1.9 mg/dL (1.6-2.3); Potassium 4.1 mmol/L (3.4-5.0); Sodium 140 mmol/L (137-145)
[2021-06-13 06:00] VITALS: BP 114/67; PULSE 63; RESP 21; TEMP 36.9; O2SAT 100
[2021-06-13 07:09] LABS: Hepatitis B Surface Antigen Negative (Negative)
[2021-06-13 07:14] LABS: HAV RESULT Negative (Negative)
[2021-06-13 07:27] LABS: Hepatitis C Virus Antibody Negative (Negative)
[2021-06-13 08:00] VITALS: PULSE 64
[2021-06-13] MEDS: FOLIC ACID 1 MG TABLET PO (08:08)
[2021-06-13] MEDS: THIAMINE HCL 100 MG TABLET PO (08:08)
--- NOTE | 2021-06-13 09:58 | PM.DS ---
DS: Admitting Diagnosis Discharge Date June 13, 2021 Admitting Diagnosis Alcohol withdrawal DS: Discharge Diagnosis Discharge Diagnosis (1) Alcohol withdrawal syndrome: Qualifiers: Complication of substance-induced condition: uncomplicated Qualified Code(s): F10.230 - Alcohol dependence with withdrawal, uncomplicated Code(s): F10.239 - Alcohol dependence with withdrawal, unspecified Status: Acute Assessment and Plan: 06/08 at night patient went to full DT and was transfer to ICU and placed on Precedex IV, Ativan, and librium Patient was taken off Precedex on 06/10 remain in the ICU no seen by cook camp and transferred out of the ICU on 06/11 Requested excessive lorazepam overnight (in spite of receiving chlordiazepoxide 50mg PO q 6h scheduled) Has no definite discharge plan for f/u for mental health or alcohol related issues ( My mom is working on it. ) Last episode of alcohol w/d lasted 15 days (per patient hx) Has hx of DEPRESSION AND ANXIETY that is currently untreated Would benefit from INPATIENT rehab D/w patient. he has a list of programs and his mother are looking at 1 in [place] he agrees to have a plan in place within the next 48 hours he is not to drink with his Librium and is to have follow-up arranged within the next 48 hours (2) Thrombocytopenia: Code(s): D69.6 - Thrombocytopenia, unspecified Status: Acute Assessment and Plan: most likely secondary to alcohol abuse, his platelets are trending up. (3) Elevated LFTs: Code(s): R79.89 - Other specified abnormal findings of blood chemistry Status: Acute Assessment and Plan: most likely secondary to alcohol abuse his LFT is trending down Hepatitis ABC panel negative (4) Hypomagnesemia: Code(s): E83.42 - Hypomagnesemia Status: Acute Assessment and Plan: Received supplementation DS: Summary Hospital Course Reason for hospitalization: Alcohol withdrawal Hospital Course: Patient was seen and examined on June 13, 2021 He was admitted with acute alcohol withdrawal. He worsened and required intensive care treatment with Precedex drip as noted below. He was transition to p.o. Librium with p.r.n. Ativan. He did not require any IV Ativan the 24 hours prior to discharge. He was alert oriented and able to perform ADLs independently. He was tolerating his diet. Time Spent with Patient Time attestation: Total time spent providing and/or coordinating discharge services: Exam Narrative: HEENT: PERRL, sclerae nonicteric, pharyngeal mucosa pink and intact NECK: No JVD CHEST: Clear to auscultation. Normal effort. HEART: NL S1/S2, regular, no murmur ABDOMEN: BS+, soft, nontender, no mass, no bruits EXTREMITIES: No cyanosis, edema, or clubbing NEUROLOGIC: CN intact and symmetric to inspection. MUSCULOSKELETAL: Tone and strength symmetric. PSYCH: Alert. Oriented to person, place, and time. ANXIOUS. DS: Data Data Completed and Pending Labs on day of discharge: Labs from last 24 hours 06/13/21 06/13/21 06/13/21 04:58 04:58 04:58 WBC 5.3 RBC 4.22 L Hgb 13.4 L Hct 40.3 L MCV 95.5 MCH 31.8 MCHC 33.3 RDW 17.9 H Plt Count 156 MPV 9.5 Sodium 140 Potassium 4.1 Chloride 103 Carbon Dioxide 24 Anion Gap 13 BUN 14 Creatinine 0.80 Estim Creat Clear Calc 123 Estimated GFR > 60 Glucose 98 Calcium 10.2 Magnesium 1.9 Total Bilirubin 0.6 AST 195 H ALT 235 H Alkaline Phosphatase 143 H Total Protein 8.0 Albumin 4.7 Hepatitis A IgM Ab Negative Hep Bs Antigen Negative Hepatitis C Ab Screen Negative Discharge Plan Discharge Discharging Clinician: Philip Agarwal Patient Disposition: Home, Self-Care Activity: no driving Diet: regular Discharge Instructions: Per Care Coordination: Please contact [facility] to start inpatient rehabilitation for alcohol at
[2021-06-13] MEDS: chlordiazePOXIDE (*CRX) 25 MG CAPSULE PO (11:29)
== END 2021-06-13 12:10 | disposition home or self-care (01) | DRG 897 ==
LOC: ANHED 07:25 → ANHIMU 08:03 → ANHICU 22:13 → ANH2MED 06-11 14:59 → ANHICU 06-16 09:35 → ANHIMU 06-16 09:35
PROVIDERS: Admitting Provider Family Medicine; Emergency Provider Emergency Medicine; Visit Provider Internal Medicine
DX: F10.230 Alcohol dependence with withdrawal, uncomplicated (principal); D69.6 Thrombocytopenia, unspecified; S09.90XA Unspecified injury of head, initial encounter; W19.XXXA Unspecified fall, initial encounter; R79.89 Other specified abnormal findings of blood chemistry; E83.42 Hypomagnesemia; F17.210 Nicotine dependence, cigarettes, uncomplicated; D72.819 Decreased white blood cell count, unspecified
CPT/HCPCS: 36415; 70450; 70486; 72125; 74177; 80048; 80053; 80307; 81001; 82948; 83605; 83690; 83735; 84100; 85025; 85027; 85055; 85610; 85730; 86709; 86803; 87340; 93005; 96361; 96365; 96366; 96375; 96376; 97110; 97116; 97161; 97165; 97530; 99285; A9270; G0378; J2060; J2405; J3411; J3475; J7030; Q9967

== ENCOUNTER 2022-01-17 16:04 | Inpatient (IN) | payer BC, SELFPAY ==
--- NOTE | ~2022-01-17 | CT_ITS ---
EXAMINATION: CT abdomen pelvis w con INDICATION: Abdominal pain TECHNIQUE: Computed tomographic images of the abdomen and pelvis were obtained after the administrati on of 100 cc of Omnipaque 350 intravenous contrast. The dose-length product (DLP) was 421.76 mGy-cm. Automated exposure control and iterative reconstruction technique were employed. COMPARISON: 06/08/2021 FINDINGS: The lung bases are clear. The heart size is normal. The liver is diffusely low in attenuati on when compared with the spleen, consistent with hepatic steatosis. The spleen, pancreas, gallbladde r, and adrenal glands are normal. 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 The left kidney is unremark able. No pathologically enlarged abdominal or pelvic lymph nodes are identified. There is no free int raperitoneal gas or evidence of bowel obstruction. The appendix is normal. There is antegrade intrame dullary carmella and interlocking intratrochanteric screw fixation of the right femur. There is a healing left 10th rib fracture. There is an age-indeterminate right ninth rib fracture. IMPRESSION: 1. No CT correlate for the patient's symptoms. 2. Diffuse hepatic steatosis. 3. Bilateral rib fractures, healing on the left. Reviewed, dictated and finalized at location F.
--- NOTE | ~2022-01-17 | XR_ITS ---
EXAMINATION: XR chest 1V portable INDICATION: Chest pain TECHNIQUE: Portable AP chest at 1726 hours COMPARISON: 11/07/2016 FINDINGS: There are minimal opacities of the left midlung zone. There is no pleural effusion or pneum othorax. The cardiomediastinal silhouette is normal. The osseous structures are unremarkable. IMPRESSION: 1. Minimal airspace opacities of the left midlung zone, consistent with atelectasis versus pneumonia. Reviewed, dictated and finalized at location F. IMPRESSION: 1. Minimal airspace opacities of the left midlung zone, consistent with atelect asis versus pneumonia.
--- NOTE | ~2022-01-17 | XR_ITS ---
EXAMINATION: XR femur RT min 2V DATE: 01/20/2022 10:24 INDICATION: Right thigh pain. TECHNIQUE: 2 views of right femur on 4 radiographs were obtained. COMPARISON: None. FINDINGS: Bone alignment is normal. There is an old healed fracture of proximal right femur with ante grade intramedullary carmella, distal interlocking screw, and femoral head/neck screw. There is heterotopi c ossification about proximal femur. No acute fracture. Joint spaces are normal. No knee joint effusi on. IMPRESSION: 1. No acute fracture. Reviewed, dictated and finalized at location A. IMPRESSION: 1. No acute fracture.
[2022-01-17 16:23] VITALS: BP 141/100; PULSE 147; RESP 20; TEMP 37; O2SAT 100
[2022-01-17 16:38] VITALS: BP 160/106; PULSE 110; RESP 23; O2SAT 99
[2022-01-17 16:39] LABS: Basophils Absolute Auto 0.1 K/mm3 (0.0-0.1); Basophils Percent Auto 1.2 % (0.2-1.2); Eosinophils Percent Auto 0.1 % (0-4.4); Hematocrit 44.1 % (42.0-52.0); Hemoglobin 15.8 g/dL (14.0-18.0); Immature Granulocyte Absolute 0.02 K/mm3 (0.00-0.031); Immature Granulocyte Percent A 0.2 % (0-0.5); Lymphocytes Absolute Auto 2.35 K/mm3 (0.9-3.2); Lymphocytes Percent Auto 25.3 % (18.3-44.2); Mean Corpuscular HGB Conc 35.8 g/dl (32-36); Mean Corpuscular Hemoglobin 33.8 pg (26-34); Mean Corpuscular Volume 94.2 fl (80-100); Mean Platelet Volume 9.5 fl (7.4-10.4); Monocytes Absolute Auto 0.4 K/mm3 (0.1-0.6); Monocytes Percent Auto 4.5 % (2.6-8.5); Neutrophils Absolute Auto 6.4 K/mm3 (1.3-6.7); Neutrophils Percent Auto 68.7 % (45.5-73.1); Platelet Count Result 206 k/mm3 (150-375); Red Blood Count 4.68 M/mm3 (4.6-6.20); Red Cell Distribution Width 13.2 % (11.5-14.5); White Blood Count 9.3 K/mm3 (4.5-10.0)
--- NOTE | 2022-01-17 16:48 | ED.GIBLEED ---
HPI - GI Bleed General Chief complaint: GI Bleed Stated complaint: dehydrated Time Seen by Provider: 01/17/22 16:48 Source: patient Mode of arrival: ambulatory Limitations: no limitations History of Present Illness HPI Narrative: The patient is a 31-year-old male with a history of alcohol abuse, alcohol withdrawal, presenting to the emergency department for evaluation with nausea, vomiting. Patient states that he has felt unwell this morning with intractable nausea and vomiting. Patient reports aching, cramping abdominal pain throughout his abdomen. He reports chills, burning sensation in his chest. Patient states the chest pain has been present since 9 AM this morning. Patient states that he was in a wedding last night drank approximately 1/5 of hard alcohol by himself. Patient states that he typically drinks 1/5 daily. States that he had additional drinks aside from the hard alcohol. Patient states last drink was this morning at 4 AM. Patient states he has been unable to tolerate any oral intake today and has not had much food over the past week. Per my chart review, patient was admitted to this facility in May 2021 for alcohol withdrawal. Patient required ICU stay. Patient's mother came to the emergency department and patient does not wish to have any visitors at this time. Mother states that patient seems to improve while in the hospital and then worsen, with active binge drinking, daily drinking. She states he has a history of alcohol withdrawal seizures and hallucinations. Related Data Home Medications Medication Instructions Recorded Confirmed buspirone mg 01/17/22 folic acid 01/17/22 gabapentin 01/17/22 levetiracetam PO 01/17/22 01/17/22 Allergies Allergy/AdvReac Type Severity Reaction Status Date / Time Penicillins Allergy Unknown Unknown Verified 01/17/22 16:41 Review of Systems Review of Systems: CONSTITUTIONAL: Denies fever, reports chills and diaphoresis EYES: Denies visual changes, redness, or discharge. ENT: Denies rhinorrhea, congestion, sore throat, or otalgia. CARDIOVASCULAR: Reports chest pain without palpitations RESPIRATORY: Denies cough or dyspnea. GASTROINTESTINAL: Reports abdominal pain, nausea and vomiting GENITOURINARY: Denies dysuria or hematuria. SKIN: Denies rash or itching. MUSCULOSKELETAL: Denies back pain, joint pain, or myalgia. NEUROLOGIC: Reports headache and diffuse, nonfocal weakness PMFSH Past Medical History Medical History (Updated 01/17/22 @ 18:37 by Josie Bassett MD) Alcohol withdrawal syndrome Alcoholism Elevated LFTs Head injury Hypomagnesemia Leukopenia Thrombocytopenia Surgical History Surgical History (Updated 01/17/22 @ 17:15 by Josie Bassett MD) No significant past surgical history Family History Family History Father Diabetes mellitus Hypertension Other Family history of cardiovascular disease Social History Social History Smoking packs per day: 1 Smoking cigarettes per day: 20.0 Years smoked: 6 Smoking pack-years: 6.00 Smoking status: Current every day smoker Tobacco type: cigarettes Alcohol intake: current Substance use: current Substance use type: marijuana Other substance usage details: drinks 1/5 vodka daily - last drink 06/06/21 Last use: 06/06/21 Gender identity (if verbalized by the patient): Male Spiritual care concerns: No Exam Narrative: GENERAL: Awake, alert, ill-appearing, tremulous HEAD: Normocephalic, atraumatic. EYES: PERRLA and EOMI. ENT: Nares clear, no rhinorrhea or epistaxis. Mucous membranes dry NECK: Supple. CHEST: No respiratory distress, breathing even and non labored HEART: Tachycardic rate, sinus rhythm ABDOMEN:Non distended, no reproducible tenderness on exam, no guarding, nonrigid, no rebound EXTREMITIES: Normal range of motion. No edema. SK
[2022-01-17 16:49] LABS: Alanine Aminotransferase 46 U/L (4-50); Albumin Level 5.4 g/dL (3.5-5.1); Alkaline Phosphatase 155 U/L (38-126); Anion Gap 23 mmol/L (8-16); Aspartate Amino Transferase 146 U/L (17-59); Bilirubin,Total 1.4 mg/dL (0.2-1.3); Blood Urea Nitrogen 10 mg/dL (9-20); Calcium 9.6 mg/dL (8.4-10.2); Carbon Dioxide 17 mmol/L (22-30); Chloride 101 mmol/L (98-107); Estimated CRCL calculation 99 ml/min; Estimated Glomerular Filt Rate > 60; Glucose 110 mg/dL (65-110); Lipase 302 U/L (23-300); Potassium 4.1 mmol/L (3.4-5.0); Sodium 141 mmol/L (137-145)
[2022-01-17] MEDS: ONDANSETRON INJ 4 MG/2 ML VIAL IV PUSH (16:55)
[2022-01-17] MEDS: SODIUM CHLORIDE 0.9% IV 1,000 ML 999 ML IV CONT (16:55)
--- NOTE | 2022-01-17 16:58 | PC.NURSE ---
pt unable to urinate at this time
--- NOTE | 2022-01-17 17:09 | ECG_ITS ---
Measurements Intervals [place] Rate: 84 P: 62 MI: 148 QRS: 34 QRSD: 87 T: 20 QT: 349 QTc: 413 Interpretive Statements SINUS RHYTHM WITH MARKED SINUS ARRHYTHMIA POSSIBLE LEFT ATRIAL ENLARGEMENT [-0.1mV P WAVE IN V1/V2] COMPARED TO ECG 06/08/2021 05:20:37 SINUS ARRHYTHMIA NOW PRESENT AND PEAKING OF T WAVES HAVE IMPROVED Electronically Signed On 01-19-2022 13:11:07 CDT by Delmy Ceballos M.D.
[2022-01-17] MEDS: LORazepam INJ (*CRX) 2 MG/ML VIAL IV PUSH ×3 (17:25→21:14)
[2022-01-17] MEDS: diphenhydrAMINE HCl INJ 50 MG/ML VIAL IV PUSH (17:25)
--- NOTE | 2022-01-17 17:32 | PC.NURSE ---
Molly (mom) here. Pt doesn't want her to be in room. Mom provided her number in case we have any questions. [phone]
[2022-01-17 17:38] LABS: Magnesium 1.7 mg/dL (1.6-2.3); Phosphorus 1.9 mg/dL (2.5-4.5)
[2022-01-17 17:49] LABS: Troponin I 0.013 ng/mL (0.000-0.034)
[2022-01-17 17:50] LABS: Troponin I 0.014 ng/mL (0.000-0.034)
[2022-01-17] MEDS: THIAMINE HCL 200 MG/2 ML VIAL 100 MG IV PUSH (18:09)
[2022-01-17] MEDS: FOLIC ACID 1 MG/0.2 ML INJ IV PUSH (18:10)
[2022-01-17 18:32] LABS: Add Urine Microscopic? YES; Appearance Urine Clear (Clear); Bilirubin Urine Negative (Negative); Blood Urine 1+ (Negative); Color Urine Yellow (Yellow); Glucose Urine UA Negative (Negative); Ketones Urine 1+ mg/dL (Negative); Leukocyte Esterase Ur Negative LEU/UL (Negative); Mucus Urine Rare /lpf; Nitrate Urine Negative (Negative); Protein Urine 3+ mg/dL (Negative); Urobilinogen Urine Negative mg/dL (<2.0)
[2022-01-17 18:34] LABS: Specific Grav Ur 1.057 (1.001-1.035)
[2022-01-17 18:42] LABS: Amphetamine Screen Urine Negative (Negative); Barbiturate Screen Urine Negative (Negative); Benzodiazepines Screen Urine Negative (Negative); Cannabinoid Screen Urine Positive (Negative); Cocaine Screen Urine Negative (Negative); Methadone Screen Urine Negative (Negative); Opiate Screen Urine Negative (Negative); Phencyclidine Screen Urine Negative (Negative)
[2022-01-17 19:03] LABS: Ethanol 258 mg/dL (<10)
--- NOTE | 2022-01-17 19:15 | PC.NURSE ---
Assumed care of pt at this time. Pt alert and upright on stretcher, requesting water and food. This RN explained to pt on why he has to remain NPO. Pt verbalized understanding.
[2022-01-17 19:19] VITALS: BP 149/104; PULSE 106; RESP 18; O2SAT 98
[2022-01-17 19:33] VITALS: BP 139/90; PULSE 103; RESP 16; O2SAT 98
[2022-01-17 20:01] VITALS: BP 140/99; PULSE 110; RESP 20; O2SAT 98
[2022-01-17 20:11] LABS: SARS-CoV-2 RNA PCR Negative
--- NOTE | 2022-01-17 20:20 | ADMGEN ---
This patient, Niles Díaz, was admitted to Intensive Care Unit-8 at 2017. Patient/family oriented to hospital policies and general routines including ID bracelet, bed and alarms, visiting hours, pain management, procedures, bathroom and other care routines, personal items, smoking policy, room service/diet, and visiting hours. Information on how to activate the Rapid Response Team has been discussed. Patient/Family are encouraged to report perceived risks to care and to ask questions if they do not understand what they are told or what they should do.
[2022-01-17 20:36] VITALS: BMI 22.9
[2022-01-17] MEDS: FAMOTIDINE 20 MG/2 ML VIAL IV PUSH (21:14)
--- NOTE | 2022-01-17 21:15 | PM.IMHP ---
H&P: HPI History of Present Illness Date/Time: Patient requires inpatient monitoring with expected length of stay to exceed 2 midnights for management of care. 01/17/22 21:15 Chief Complaint: Abdominal pain Narrative: Mr. Díaz is a 31-year-old gentleman who presented emergency room with complaints of abdominal pain, nausea, and vomiting this started around 9:00 a.m. this morning. Patient states he does drink approximately a 5th of vodka or whiskey daily his last week with at approximately 9:00 a.m. this morning. Patient states that he thought he may have had blood in his vomit, but typically when he does not drink and goes into alcohol withdrawal he does hallucinate. Patient states he has felt very shaky today and he feels like he may be going into withdrawals very soon. Patient states he does have a history of seizures with his alcohol withdrawals. Patient states he is feeling significantly improved at this time after receiving IV fluids and Ativan. Patient states that he does drink daily, and does cocaine approximately once monthly as well as marijuana on a routine basis. Patient denies any chest discomfort, shortness of breath, lightheadedness, dizziness, syncopal, or near syncopal episodes. Patient states he does take his gabapentin and Keppra daily for his seizures. Review of Systems Review of Systems: A 12 point review of systems was completed patient all pertinent positive and negative per HPI the remainder are unremarkable. [facility] Past Medical History Medical History (Updated 01/17/22 @ 21:34 by Stacy Estevez APRN) Alcohol withdrawal syndrome Alcoholism Elevated LFTs Head injury Hypomagnesemia Leukopenia Thrombocytopenia Surgical History Surgical History (Updated 01/17/22 @ 17:15 by Josie Bassett MD) No significant past surgical history Family History Family History Father Diabetes mellitus Hypertension Other Family history of cardiovascular disease Social History Social History Smoking packs per day: 1 Smoking cigarettes per day: 20.0 Years smoked: 6 Smoking pack-years: 6.00 Smoking status: Current every day smoker Tobacco type: cigarettes Alcohol intake: current Substance use: current Substance use type: marijuana and crack/cocaine Other substance usage details: drinks 1/5 of whiskey or vodka daily and beer Last use: 01/17/2022 Gender identity (if verbalized by the patient): Male Spiritual care concerns: No Meds Home Medications and Allergies Home Medications Medication Instructions Recorded Confirmed Type buspirone 10 mg PO TID 01/17/22 01/17/22 History chlordiazepoxide HCl 25 mg PO Q6H PRN 01/17/22 01/17/22 History folic acid 1 mg PO DAILY 01/17/22 01/17/22 History gabapentin 300 mg PO TID 01/17/22 01/17/22 History levetiracetam 500 mg PO BID 01/17/22 01/17/22 History Allergies Allergy/AdvReac Type Severity Reaction Status Date / Time Penicillins Allergy Unknown Unknown Verified 01/17/22 16:41 Vital Signs Vital Signs - 24 hr 01/17/22 16:23 01/17/22 16:38 01/17/22 19:19 Temperature 37.0 C Pulse Rate 147 H 110 H 106 H Respiratory Rate 20 23 H 18 Blood Pressure 141/100 H 160/106 H 149/104 H Pulse Oximetry 100 99 98 01/17/22 19:33 01/17/22 20:01 Temperature Pulse Rate 103 H 110 H Respiratory Rate 16 20 Blood Pressure 139/90 140/99 H Pulse Oximetry 98 98 Exam Narrative: Constitutional: Patient is a 31-year-old gentleman who is tremulous and appears anxious at this time. Patient is alert and oriented x3 HEENT: Moist mucous membranes. No scleral icterus. No lymphadenopathy. Neck: No carotid bruits noted no JVD noted Lungs: Lung sounds are clear to auscultation bilaterally. No accessory muscle use. No rhonchi, rales, or wheezes noted. Cardiovascular: Apical pulse is regular rhythm and tachycardic. S1-S2
[2022-01-17] MEDS: THIAMINE HCL INJ 100 MG, FOLIC ACID INJ 1 MG, MULTIVITAMINS-12 INJ VIAL 1 5 ML, MULTIVI... 125 MG IV CONT (21:22)
[2022-01-17 22:00] VITALS: BP 112/98; PULSE 107; RESP 20; O2SAT 99
[2022-01-17] MEDS: levETIRAcetam 500 MG TABLET PO (22:20)
[2022-01-17] MEDS: busPIRone HCL 10 MG TABLET PO (22:20)
[2022-01-17] MEDS: GABAPENTIN 300 MG CAPSULE PO (22:20)
[2022-01-17] MEDS: chlordiazePOXIDE (*CRX) 25 MG CAPSULE PO (22:20)
[2022-01-18] VITALS (15 sets, daily range): BP systolic 116–152; BP diastolic 72–99; PULSE 55–104; RESP 14–116; TEMP 36.6–37.2; O2SAT 96–100
[2022-01-18] MEDS: LORazepam INJ (*CRX) 2 MG/ML VIAL IV PUSH ×6 (02:07→18:31)
[2022-01-18 04:30] LABS: Basophils Absolute Auto 0.1 K/mm3 (0.0-0.1); Basophils Percent Auto 0.6 % (0.2-1.2); Hematocrit 40.6 % (42.0-52.0); Hemoglobin 13.3 g/dL (14.0-18.0); Immature Granulocyte Absolute 0.02 K/mm3 (0.00-0.031); Immature Granulocyte Percent A 0.2 % (0-0.5); Lymphocytes Absolute Auto 1.86 K/mm3 (0.9-3.2); Lymphocytes Percent Auto 20.9 % (18.3-44.2); Mean Corpuscular HGB Conc 32.8 g/dl (32-36); Mean Corpuscular Hemoglobin 33.6 pg (26-34); Mean Corpuscular Volume 102.5 fl (80-100); Mean Platelet Volume 10.1 fl (7.4-10.4); Monocytes Absolute Auto 0.6 K/mm3 (0.1-0.6); Monocytes Percent Auto 6.8 % (2.6-8.5); Neutrophils Absolute Auto 6.4 K/mm3 (1.3-6.7); Neutrophils Percent Auto 71.5 % (45.5-73.1); Platelet Count Result 133 k/mm3 (150-375); Red Blood Count 3.96 M/mm3 (4.6-6.20); Red Cell Distribution Width 13.4 % (11.5-14.5); White Blood Count 8.9 K/mm3 (4.5-10.0)
[2022-01-18 04:38] LABS: Alanine Aminotransferase 40 U/L (4-50); Albumin Level 4.6 g/dL (3.5-5.1); Alkaline Phosphatase 110 U/L (38-126); Anion Gap 15 mmol/L (8-16); Aspartate Amino Transferase 96 U/L (17-59); Bilirubin,Total 1.2 mg/dL (0.2-1.3); Blood Urea Nitrogen 9 mg/dL (9-20); Calcium 8.8 mg/dL (8.4-10.2); Carbon Dioxide 22 mmol/L (22-30); Chloride 104 mmol/L (98-107); Estimated CRCL calculation 108 ml/min; Estimated Glomerular Filt Rate > 60; Glucose 78 mg/dL (65-110); Phosphorus 3.7 mg/dL (2.5-4.5); Potassium 3.6 mmol/L (3.4-5.0); Sodium 141 mmol/L (137-145)
[2022-01-18] MEDS: SODIUM CHLORIDE 0.9% IV 1,000 ML 125 ML IV CONT (05:45)
[2022-01-18] MEDS: chlordiazePOXIDE (*CRX) 25 MG CAPSULE PO (06:20)
[2022-01-18] MEDS: SODIUM CHLORIDE 0.9% IV 1,000 ML 999 ML IV CONT (08:27)
[2022-01-18] MEDS: ENOXAPARIN 40 MG/0.4 ML SYRINGE SUB-Q (08:30)
[2022-01-18] MEDS: levETIRAcetam 500 MG TABLET PO ×2 (08:30→16:41)
[2022-01-18] MEDS: FOLIC ACID 1 MG TABLET PO (08:31)
[2022-01-18] MEDS: GABAPENTIN 300 MG CAPSULE PO ×3 (08:31→16:41)
[2022-01-18] MEDS: FAMOTIDINE 20 MG/2 ML VIAL IV PUSH ×2 (08:31→21:34)
[2022-01-18] MEDS: busPIRone HCL 10 MG TABLET PO ×3 (08:31→16:41)
--- NOTE | 2022-01-18 08:57 | WPDCNINT ---
Assessment and Plan Assessment and plan (1) Alcohol abuse with withdrawal: Code(s): F10.139 - Alcohol abuse with withdrawal, unspecified Status: Acute Assessment and Plan: Patient presented with alcoholism, tremors, abdominal pain, nausea vomiting -this could be related requires alcoholism and all alcohol withdrawal -alcohol levels were 258, and tox screen was positive cannabinoids -continue with CIWA protocol -p.r.n. Ativan 2 mg q.2 hours -will increase Librium -continue thiamine, folic acid, multivitamin (2) Nausea & vomiting: Code(s): R11.2 - Nausea with vomiting, unspecified Status: Acute Assessment and Plan: Resolved -elevated lipase, recheck -will give 1 L IV fluid bolus now and continue maintenance IV fluids (3) Dehydration: Code(s): E86.0 - Dehydration Status: Acute Assessment and Plan: You have additional IV fluid bolus (4) Elevated LFTs: Code(s): R79.89 - Other specified abnormal findings of blood chemistry Status: Acute Assessment and Plan: Likely related to alcoholism, hepatic steatosis and CT scan of the abdomen and pelvis Additional Plan DVT prophylaxis: Enoxaparin Nutrition: Regular diet Code status: Full code Critical care time spent: 43 minutes This dictation may have been done utilizing a voice recognition system. Attempts have been made to correct errors. However, there may be uncorrected grammatical, spelling, and recognition errors present. Due to a high probability of clinically significant, life threatening deterioration, the patient required my highest level of preparedness to intervene emergently and I personally spent this critical care time directly and personally managing the patient. This critical care time included obtaining a history; examining the patient; pulse oximetry; ordering and review of studies; arranging urgent treatment with development of a management plan; evaluation of patient's response to treatment; frequent reassessment; and discussions with other providers. It was exclusive of separately billable procedures and treating other patients and teaching time. Please see Assessment and Plan section and the rest of the note for further information on patient assessment and treatment [employer] Consult Note Consult date: 01/18/22 Time Seen: 07:06 Reason for consult: Alcohol withdrawal, tremors, nausea, vomiting, abdominal pain HPI: Niles Díaz is a 31 year old male with past medical history of alcohol withdrawal syndrome, alcoholism, elevated LFTs, thrombocytopenia presented the ED on 01/17/2022 with complains of nausea, abdominal pain and vomiting. He states he drinks about 5th of vodka, whiskey daily, his last drink was felt 4:00 a.m. on 01/17/2022 where the wedding. Patient was tremulous in the ER. Was given IV fluid bolus, required Ativan and was transferred to the ICU possibility of Precedex infusion. Patient has a CT scan of the abdomen which did not correlate with the patient's symptoms, diffuse hepatic steatosis, bilateral rib fractures, healing on the left. Chest x-ray showed minimal airspace opacities left mid lung zone consistent with atelectasis versus pneumonia. SARS-CoV-2 PCR was negative. Alcohol level was 258, urine toxicology positive for cannabinoids. The ICU this morning, has required 2 doses of Ativan overnight.. Patient is awake, denies any chest pain, shortness a breath, abdominal pain, nausea vomiting at this time. States he is hungry and wants to eat something. Patient is tremulous and has dysarthric speech. Hemodynamically stable, urine output has been adequate, afebrile Review of Systems Review of Systems: All systems reviewed & are unremarkable except as noted in HPI and below PMFSH Past Medical History Medical History (Updated 01/17/22 @ 21:34 by Stacy Estevez APRN) Alcohol withdrawal syndrome Alcoholism Elevated LFTs Head injury Hypomagnesemia Leukopenia Throm
[2022-01-18 09:34] LABS: Lipase 199 U/L (23-300)
[2022-01-18] MEDS: MULTIVITAMINS THERAPEUTIC TAB (*BKC) 1 TABLET PO (09:49)
[2022-01-18] MEDS: ONDANSETRON INJ 4 MG/2 ML VIAL IV PUSH ×2 (09:49→18:32)
[2022-01-18] MEDS: chlordiazePOXIDE (*CRX) 25 MG CAPSULE 50 MG PO ×3 (12:56→23:55)
--- NOTE | 2022-01-18 13:22 | PCFNICU ---
ICU Rounding Note: Pt current nutrition is Regular Last recorded weight is 81.2 kg Bowel Motility:No BM to report. Labs Reviewed:Hct 40.6,Hgb 13.3 Meds Noted: Keppra,MVI, Thiamine, Folic Acid, NS, Ativan, Neurontin Skin: WNL Additional Notes:Dietitian consult for ETOH. Patient has advanced to a regular diet, eating 100% of meals. Agree with diet orders. No further nutritional interventions needed. Following daily in ICU rounds.
[2022-01-18] MEDS: dexmedeTOMIDine 400 MCG/100 ML 400 MCG/100 ML BAG IV CONT (15:48)
--- NOTE | 2022-01-18 16:43 | PM.IMPN ---
Progress Note: A&P Assessment and Plan (1) Alcohol abuse with withdrawal: Code(s): F10.139 - Alcohol abuse with withdrawal, unspecified Status: Acute Assessment and Plan: Placed on CIWA protocol. Ativan p.r.n.. Schedule Librium. Alcohol level at 2:58 a.m.. History of alcoholic hallucinosis/delirium tremens. Precedex drip if needed but seems doing okay with current regimen Continue to monitor closely per protocol. (2) Agitation: Code(s): R45.1 - Restlessness and agitation Status: Acute Assessment and Plan: Secondary to alcohol withdrawal. (3) Nausea & vomiting: Code(s): R11.2 - Nausea with vomiting, unspecified Status: Acute Assessment and Plan: Patient's nausea vomiting is significantly improved. Clear liquid diet currently advance as tolerated CT abdomen and pelvis with diffuse hepatic steatosis. And bilaterally rib fractures healing on the left (4) Dehydration: Code(s): E86.0 - Dehydration Status: Acute Assessment and Plan: Getting IV fluids. (5) Hepatic steatosis: Code(s): K76.0 - Fatty (change of) liver, not elsewhere classified Status: Acute Assessment and Plan: Alcohol-induced Subjective Date/time seen: 01/18/22 16:43 Interval history: HPI:Mr. Díaz is a 31-year-old gentleman who presented emergency room with complaints of abdominal pain, nausea, and vomiting this started around 9:00 a.m. this morning. Patient states he does drink approximately a 5th of vodka or whiskey daily his last week with at approximately 9:00 a.m. this morning. Patient states that he thought he may have had blood in his vomit, but typically when he does not drink and goes into alcohol withdrawal he does hallucinate. Patient states he has felt very shaky today and he feels like he may be going into withdrawals very soon. Patient states he does have a history of seizures with his alcohol withdrawals. Patient states he is feeling significantly improved at this time after receiving IV fluids and Ativan. Patient states that he does drink daily, and does cocaine approximately once monthly as well as marijuana on a routine basis. Patient denies any chest discomfort, shortness of breath, lightheadedness, dizziness, syncopal, or near syncopal episodes. Patient states he does take his gabapentin and Keppra daily for his seizures. 01/18/2022 feels okay. His any complaints. Still shaky. Denies any abdominal pain or nausea vomiting. Review of Systems Review of Systems: All systems reviewed & are unremarkable except as noted in HPI and below Exam Narrative: Constitutional: Patient is mildly tremulous and appears anxious. Patient is alert and oriented x3 HEENT: Moist mucous membranes. No scleral icterus. No lymphadenopathy. Neck: No carotid bruits noted no JVD noted Lungs: Lung sounds are clear to auscultation bilaterally. No accessory muscle use. No rhonchi, rales, or wheezes noted. Cardiovascular: Apical pulse is regular rate and rhythm. S1-S2 noted, no S3 or S4 noted. No gallops, murmurs, or rubs noted. Abdomen: Soft, round, and nontender. No palpable masses. Patient has a large midline abdominal scar noted. Extremities: No edema. Nontender. Skin: No rashes or lesions. Warm and dry. Skin is intact. Neurological: No focal neurological deficits. Cranial nerves II-XII grossly intact. Psychiatric: Cooperative, patient does appear anxious and tremulous. Objective Data Vital Signs Vital Signs: Vital Signs - 24 hr 01/17/22 19:19 01/17/22 19:33 01/17/22 20:01 Temperature Pulse Rate 106 H 103 H 110 H Respiratory Rate 18 16 20 Blood Pressure 149/104 H 139/90 140/99 H Pulse Oximetry 98 98 98 01/17/22 22:00 01/18/22 00:00 01/18/22 02:00 Temperature 98.3 F Pulse Rate 107 H 101 H 94 Respiratory Rate 20 20 20 Blood Pressure 112/98 H 140/88 146/94 H Pulse Oximetry 99 99 100 01/18/22 04:00 01/18/22 06:00 01/18/22 08:
[2022-01-18] MEDS: dexmedeTOMIDine 400 MCG/100 ML 400 MCG/100 ML BAG 14.21 MCG IV CONT (23:54)
[2022-01-19] VITALS (19 sets, daily range): BP systolic 125–150; BP diastolic 74–102; PULSE 60–99; RESP 12–22; TEMP 36.6–37.2; O2SAT 98–100
[2022-01-19 03:46] LABS: Basophils Percent Auto 0.5 % (0.2-1.2); Eosinophils Percent Auto 0.5 % (0-4.4); Hematocrit 37.7 % (42.0-52.0); Hemoglobin 13.7 g/dL (14.0-18.0); Immature Granulocyte Absolute 0.02 K/mm3 (0.00-0.031); Immature Granulocyte Percent A 0.2 % (0-0.5); Immature Platelet Fraction Pct 5.3 % (0.9-11.2); Lymphocytes Absolute Auto 1.08 K/mm3 (0.9-3.2); Lymphocytes Percent Auto 12.9 % (18.3-44.2); Mean Corpuscular HGB Conc 36.3 g/dl (32-36); Mean Corpuscular Hemoglobin 34.5 pg (26-34); Mean Platelet Volume 9.8 fl (7.4-10.4); Monocytes Absolute Auto 0.3 K/mm3 (0.1-0.6); Monocytes Percent Auto 3.5 % (2.6-8.5); Neutrophils Absolute Auto 6.9 K/mm3 (1.3-6.7); Neutrophils Percent Auto 82.4 % (45.5-73.1); Platelet Count Result 120 k/mm3 (150-375); Red Blood Count 3.97 M/mm3 (4.6-6.20); Red Cell Distribution Width 12.8 % (11.5-14.5); White Blood Count 8.4 K/mm3 (4.5-10.0)
[2022-01-19] MEDS: LORazepam INJ (*CRX) 2 MG/ML VIAL IV PUSH (04:19)
[2022-01-19 04:24] LABS: Alanine Aminotransferase 32 U/L (4-50); Albumin Level 4.2 g/dL (3.5-5.1); Alkaline Phosphatase 88 U/L (38-126); Anion Gap 10 mmol/L (8-16); Aspartate Amino Transferase 80 U/L (17-59); Bilirubin,Total 1.4 mg/dL (0.2-1.3); Blood Urea Nitrogen 9 mg/dL (9-20); Calcium 8.7 mg/dL (8.4-10.2); Carbon Dioxide 23 mmol/L (22-30); Chloride 102 mmol/L (98-107); Estimated CRCL calculation 134 ml/min; Estimated Glomerular Filt Rate > 60; Glucose 104 mg/dL (65-110); Lipase 199 U/L (23-300); Magnesium 1.6 mg/dL (1.6-2.3); Phosphorus 2.6 mg/dL (2.5-4.5); Potassium 3.8 mmol/L (3.4-5.0); Sodium 135 mmol/L (137-145)
--- NOTE | 2022-01-19 06:42 | PC.NURSE ---
0635 Patient standing at bedside. Pulled iv tubing apart and removed all monitoring equipment. Helped back to bed and encouraged to remain in bed as per doctor orders.
[2022-01-19] MEDS: dexmedeTOMIDine 400 MCG/100 ML 400 MCG/100 ML BAG 14.21 MCG IV CONT (06:44)
[2022-01-19] MEDS: chlordiazePOXIDE (*CRX) 25 MG CAPSULE 50 MG PO ×4 (06:45→23:01)
[2022-01-19] MEDS: levETIRAcetam 500 MG TABLET PO ×2 (08:37→17:32)
[2022-01-19] MEDS: ENOXAPARIN 40 MG/0.4 ML SYRINGE SUB-Q (08:37)
[2022-01-19] MEDS: MULTIVITAMINS THERAPEUTIC TAB (*BKC) 1 TABLET PO (08:37)
[2022-01-19] MEDS: GABAPENTIN 300 MG CAPSULE PO ×3 (08:37→17:32)
[2022-01-19] MEDS: FOLIC ACID 1 MG TABLET PO (08:38)
[2022-01-19] MEDS: busPIRone HCL 10 MG TABLET PO ×3 (08:38→17:32)
[2022-01-19] MEDS: LORazepam INJ (*CRX) 2 MG/ML VIAL 1 MG IV PUSH ×4 (08:51→23:01)
--- NOTE | 2022-01-19 11:13 | PM.IMPN ---
Progress Note: A&P Additional Plan (1) Alcohol abuse with withdrawal: Code(s): F10.139 - Alcohol abuse with withdrawal, unspecified Status: Acute Assessment and Plan: -on CIWA protocol. Ativan p.r.n.. Schedule Librium. -he has a history of alcoholic hallucinosis/delirium tremens. -on Ativan, Librium and Precedex.in the ICU. Continue to monitor closely per protocol. (2) Agitation: Code(s): R45.1 - Restlessness and agitation Status: Acute Assessment and Plan: Secondary to alcohol withdrawal. See treatment above. (3) Nausea & vomiting: Code(s): R11.2 - Nausea with vomiting, unspecified Status: Acute Assessment and Plan: Patient's nausea vomiting is significantly improved. Clear liquid diet currently advance as tolerated CT abdomen and pelvis with diffuse hepatic steatosis. And bilaterally rib fractures healing on the left Zofran PRN. (4) Dehydration: Code(s): E86.0 - Dehydration Status: Acute Assessment and Plan: Getting IV fluids. (5) Hepatic steatosis: Code(s): K76.0 - Fatty (change of) liver, not elsewhere classified Status: Acute Assessment and Plan: Alcohol-induced (6)Hypomagnesemia: -Mg of 1.6 -given IV MgS 2gram Time Spent With Patient Time with patient: 15 - 25 minutes Subjective Date/time seen: 01/19/22 11:13 Patient seen lying in bed, alert and oriented, he denied having any complains. Exam Const: General: comfortable and no acute distress Resp: Effort & Inspection: normal respiratory effort Auscultation: clear to auscultation bilaterally Cardio: Rate: regular rate Rhythm: regular rhythm Heart sounds: S1 normal heart sound present and S2 normal heart sound present GI: Inspection: normal to inspection GI Palp: No abdominal tenderness Auscultation: normal bowel sounds Neuro: General: oriented to person, oriented to place, oriented to time and patient oriented x3 Extrem: General: normal to inspection Psych: Appearance: grossly normal Objective Data Vital Signs Vital Signs: Vital Signs - 24 hr 01/18/22 12:00 01/18/22 14:00 01/18/22 14:46 Temperature 98.7 F Pulse Rate 85 98 Respiratory Rate 15 Blood Pressure 140/75 150/90 H 140/75 Pulse Oximetry 97 98 01/18/22 15:48 04/26/22 16:00 01/18/22 18:00 Temperature 98.9 F Pulse Rate 72 74 58 L Respiratory Rate 19 21 H 116 H Blood Pressure 145/74 H 116/72 Pulse Oximetry 96 99 01/18/22 20:00 01/18/22 22:00 01/18/22 23:54 Temperature 98.7 F Pulse Rate 62 55 L 60 Respiratory Rate 18 18 16 Blood Pressure 145/82 H 140/99 H Pulse Oximetry 99 99 01/19/22 00:00 01/19/22 02:00 01/19/22 04:00 Temperature 98.3 F 98.7 F Pulse Rate 62 60 68 Respiratory Rate 18 18 18 Blood Pressure 142/92 H 140/95 H 127/97 H Pulse Oximetry 99 99 99 01/19/22 06:00 01/19/22 06:44 01/19/22 08:00 Temperature 98.6 F Pulse Rate 70 70 74 Respiratory Rate 18 20 15 Blood Pressure 139/97 H 144/102 H Pulse Oximetry 99 100 01/19/22 08:41 01/19/22 09:56 01/19/22 10:00 Temperature Pulse Rate 80 70 66 Respiratory Rate 15 22 H 21 H Blood Pressure 125/74 Pulse Oximetry Intake/Output Intake/Output: Intake & Output 01/16/22 01/17/22 01/18/22 01/19/22 23:59 23:59 23:59 23:59 Intake Total 1050 3790 3100 Output Total 550 2900 Balance 1050 3240 200 Meds/Results Medications: Active Medications Generic Name Dose Route Start Last Admin Trade Name Jossie PRN Reason Stop Dose Admin Buspirone HCl 10 mg 01/17/22 21:15 01/19/22 08:38 Buspirone Hcl 10 Mg Tablet PO 10 mg TID CAYLA Administration Chlordiazepoxide HCl 50 mg 01/18/22 12:00 01/19/22 06:45 Chlordiazepoxide (*Crx) 25 Mg Capsule PO 50 mg Q6HR CAYLA Administration Enoxaparin Sodium 40 mg 01/18/22 09:00 01/19/22 08:37 Enoxaparin 40 Mg/0.4 Ml Syringe SUB-Q 40 mg DAILY CAYLA Administration Folic Acid 1 mg 01/18/22 09:00 01/19/22 0
--- NOTE | 2022-01-19 11:27 | PCFNICU ---
ICU Rounding Note: Pt current nutrition is Regular. Last recorded weight is 81.7 kg-stable Bowel Motility: No BM reported. Labs Reviewed: Na 135, Hct 37.7, Hgb 13.7 Meds Noted:Keppra,MVI, Thiamine, Folic Acid, Ativan,Lovenox,Rocephin Skin: WNL Additional Notes: Patient eating 50-100% of a regular diet. No nutritional concerns at this time. Following daily in ICU rounds.
--- NOTE | 2022-01-19 12:07 | WPDINTPN ---
Progress Note: A&P Assessment and Plan (1) Alcohol abuse with withdrawal: Code(s): F10.139 - Alcohol abuse with withdrawal, unspecified Status: Acute Assessment and Plan: Alcohol intoxication followed by alcohol withdrawal -continue with CIWA protocol -try to wean off Precedex infusion -continue scheduled Librium and p.r.n.Ativan 2 mg q.2 hours -continue thiamine, folic acid, multivitamin (2) Nausea & vomiting: Code(s): R11.2 - Nausea with vomiting, unspecified Status: Acute Assessment and Plan: Resolved -elevated lipase has normalized -patient is eating without any difficulty (3) Dehydration: Code(s): E86.0 - Dehydration Status: Acute Assessment and Plan: Off IV fluids now (4) Elevated LFTs: Code(s): R79.89 - Other specified abnormal findings of blood chemistry Status: Acute Assessment and Plan: Likely related to alcoholism, hepatic steatosis and CT scan of the abdomen and pelvis Levels are improving (5) Thrombocytopenia: Code(s): D69.6 - Thrombocytopenia, unspecified Status: Acute Assessment and Plan: Likely secondary to alcohol abuse Hold Lovenox and use SCDs for now. Additional Plan DVT prophylaxis: SCDs Nutrition: Regular diet Code status: Full code Critical care time spent: 30 minutes This dictation may have been done utilizing a voice recognition system. Attempts have been made to correct errors. However, there may be uncorrected grammatical, spelling, and recognition errors present. Due to a high probability of clinically significant, life threatening deterioration, the patient required my highest level of preparedness to intervene emergently and I personally spent this critical care time directly and personally managing the patient. This critical care time included obtaining a history; examining the patient; pulse oximetry; ordering and review of studies; arranging urgent treatment with development of a management plan; evaluation of patient's response to treatment; frequent reassessment; and discussions with other providers. It was exclusive of separately billable procedures and treating other patients and teaching time. Please see Assessment and Plan section and the rest of the note for further information on patient assessment and treatment Subjective Date/time seen: 01/19/22 He states he feels better today as compared to yesterday he states he had episodes of anxiety but at this time he is feeling better. Adequate p.o. intake. Patient denies fever, chest pain, shortness of breath at this time, cough, nausea, vomiting, abdominal pain, diarrhea, headache or constipation. All other systems were reviewed and were negative. He is currently on Precedex infusion Interval history: 31-year-old gentleman with alcohol withdrawal Review of Systems Review of Systems: All systems reviewed & are unremarkable except as noted in HPI and below Exam Narrative: General: Well-built gentleman in no acute distress HEENT: Pupils equal and reactive, sclera is clear Neck: Supple, no lymphadenopathy Respiratory: Clear to auscultation bilaterally Cardiac: S1-S2 was normal, regular rate and rhythm Abdomen: Soft, nontender, nondistended, normoactive bowel sounds, patient does have a midline abdominal scar, patient has been picking on it with some open wounds Extremities: No edema, palpable pedal pulse Neuro: Awake, alert, answers to questions, has dysarthric speech, mild action tremors present Skin: Small open wounds on the abdomen Psych: Anxious Objective Data Vital Signs Vital Signs: Vital Signs - 24 hr 01/18/22 14:00 01/18/22 14:46 01/18/22 15:48 Temperature Pulse Rate 98 72 Respiratory Rate 19 Blood Pressure 150/90 H 140/75 Pulse Oximetry 98 01/18/22 16:00 01/18/22 18:00 01/18/22 20:00 Temperature 37.2 C 37.1 C Pulse Rate 74 58 L 62 Respiratory Rate 21 H 116 H 18 Blood Pressure 145/74 H 1
[2022-01-19] MEDS: dexmedeTOMIDine 400 MCG/100 ML 400 MCG/100 ML BAG 8.12 MCG IV CONT (13:29)
[2022-01-19] MEDS: MAGNESIUM SULF 2 GM/WATER 50ML 2 GM/50 ML BAG IVPB (13:30)
[2022-01-19] MEDS: PANTOPRAZOLE SODIUM IV 40 MG VIAL IV PUSH (13:31)
[2022-01-19] MEDS: THIAMINE HCL 100 MG TABLET PO (13:31)
[2022-01-20] VITALS (12 sets, daily range): BP systolic 138–159; BP diastolic 88–100; PULSE 60–106; RESP 14–20; TEMP 36.6–37.4; O2SAT 98–100
[2022-01-20] MEDS: dexmedeTOMIDine 400 MCG/100 ML 400 MCG/100 ML BAG IV CONT (03:58)
[2022-01-20] MEDS: chlordiazePOXIDE (*CRX) 25 MG CAPSULE 50 MG PO ×3 (06:04→17:22)
[2022-01-20] MEDS: busPIRone HCL 10 MG TABLET PO ×3 (09:13→17:20)
[2022-01-20] MEDS: GABAPENTIN 300 MG CAPSULE PO ×3 (09:14→17:20)
[2022-01-20] MEDS: FOLIC ACID 1 MG TABLET PO (09:14)
[2022-01-20] MEDS: MULTIVITAMINS THERAPEUTIC TAB (*BKC) 1 TABLET PO (09:14)
[2022-01-20] MEDS: THIAMINE HCL 100 MG TABLET PO (09:14)
[2022-01-20] MEDS: levETIRAcetam 500 MG TABLET PO ×2 (09:14→17:20)
[2022-01-20] MEDS: LORazepam INJ (*CRX) 2 MG/ML VIAL IV PUSH ×2 (09:15→11:57)
[2022-01-20] MEDS: ACETAMINOPHEN 325 MG TABLET 650 MG PO ×2 (09:28→16:40)
--- NOTE | 2022-01-20 09:47 | WPDINTPN ---
Progress Note: A&P Assessment and Plan (1) Alcohol abuse with withdrawal: Code(s): F10.139 - Alcohol abuse with withdrawal, unspecified Status: Acute Assessment and Plan: Alcohol intoxication followed by alcohol withdrawal -continue with [facility] protocol -of Precedex infusion -continue scheduled Librium and p.r.n. IV Ativan 2 mg q.2 hours -continue thiamine, folic acid, multivitamin -resume home Elavil (2) Nausea & vomiting: Code(s): R11.2 - Nausea with vomiting, unspecified Status: Acute Assessment and Plan: Resolved -elevated lipase has normalized -patient is eating without any difficulty (3) Dehydration: Code(s): E86.0 - Dehydration Status: Acute Assessment and Plan: Off IV fluids now (4) Elevated LFTs: Code(s): R79.89 - Other specified abnormal findings of blood chemistry Status: Acute Assessment and Plan: Likely related to alcoholism, hepatic steatosis and CT scan of the abdomen and pelvis Levels are improving (5) Thrombocytopenia: Code(s): D69.6 - Thrombocytopenia, unspecified Status: Acute Assessment and Plan: Likely secondary to alcohol abuse Hold Lovenox and use SCDs for now. CBC pending (6) Leg pain: Code(s): M79.606 - Pain in leg, unspecified Status: Acute Assessment and Plan: Patient has history of leg surgery in the past He did had CT of abdomen pelvis which showed intramedullary carmella and intertrochanteric screw fixation of right femur Will get x-ray of right leg for full view of the femur Additional Plan DVT prophylaxis: SCDs Nutrition: Regular diet Code status: Full code Consult PT OT Transfer out of ICU Subjective Date/time seen: 01/20/22 09:47 He states he is feeling better as compared to yesterday. Denies any chest pain shortness a breath anxiety. Eating regular diet. Complains of pain in his right leg which he states happened after he was hit by a chainsaw at work. He does have history of surgery and fixation of his femur. Pain is achy 5/10 severe does not radiate worse with movement and no relieving factor. Patient is requesting that his Elavil be resumed at night. All other systems were reviewed and were negative Interval history: 31-year-old gentleman with alcohol withdrawal Review of Systems Review of Systems: All systems reviewed & are unremarkable except as noted in HPI and below Exam Narrative: General: Well-built gentleman in no acute distress HEENT: Pupils equal and reactive, sclera is clear Neck: Supple, no lymphadenopathy Respiratory: Clear to auscultation bilaterally Cardiac: S1-S2 was normal, regular rate and rhythm Abdomen: Soft, nontender, nondistended, normoactive bowel sounds, patient does have a midline abdominal scar, patient has been picking on it with some open wounds Extremities: No edema, palpable pedal pulse scar from past surgery on lateral aspect of right leg no swelling redness bruising or ecchymosis seen Neuro: Awake, alert, answers to questions, has dysarthric speech, mild action tremors present Skin: Small open wounds on the abdomen Psych: Anxious Objective Data Vital Signs Vital Signs: Vital Signs - 24 hr 01/19/22 09:56 01/19/22 10:00 01/19/22 11:30 Temperature Pulse Rate 70 66 67 Respiratory Rate 22 H 21 H 19 Blood Pressure 125/74 Pulse Oximetry 01/19/22 12:00 01/19/22 13:29 01/19/22 13:39 Temperature 37.2 C Pulse Rate 67 70 74 Respiratory Rate 19 13 12 Blood Pressure 129/93 H Pulse Oximetry 98 01/19/22 14:00 01/19/22 16:00 01/19/22 18:00 Temperature 37.2 C Pulse Rate 79 85 85 Respiratory Rate 16 18 16 Blood Pressure 128/96 H 149/95 H 133/98 H Pulse Oximetry 100 01/19/22 20:00 01/19/22 22:00 01/19/22 23:15 Temperature 36.6 C 36.7 C Pulse Rate 78 80 73 Respiratory Rate 19 22 H Blood Pressure 150/96 H 138/83 Pulse Oximetry 98 98 01/20/22 00:00 01/20/22 01:00 01/20/22 02
[2022-01-20 11:27] LABS: Hematocrit 35.8 % (42.0-52.0); Hemoglobin 12.5 g/dL (14.0-18.0); Immature Platelet Fraction Pct 6.9 % (0.9-11.2); Mean Corpuscular HGB Conc 34.9 g/dl (32-36); Mean Corpuscular Hemoglobin 33.9 pg (26-34); Mean Platelet Volume 10.4 fl (7.4-10.4); Platelet Count Result 124 k/mm3 (150-375); Red Blood Count 3.69 M/mm3 (4.6-6.20); Red Cell Distribution Width 13.2 % (11.5-14.5); White Blood Count 6.4 K/mm3 (4.5-10.0)
--- NOTE | 2022-01-20 11:40 | PCPTNOTE ---
PT eval orders received; EMR reviewed--pt is 31 yr old and active prior to admission; history of R femur ORIF, recent x ray negative; talked with DARIA Springer, she reports pt was complaining of R hip pain. I talked with Niles, he said hip is fine now, do not need anything. In supine, he performed active R hip ROM, without pain and full range of motion. PT eval was not indicated at this time; PT order will be discharged.
--- NOTE | 2022-01-20 11:51 | PCFNICU ---
ICU Rounding Note: Pt current nutrition is Regular. Last recorded weight is 81.7 kg-stable Bowel Motility:+BM reported 01/20 Labs Reviewed:Na 135, Hct 37.7,Hgb 13.7 Meds Noted:Keppra,MVI, Thiamine, Folic Acid, Ativan,Lovenox,Rocephin, Zithromax, Neurontin Skin: WNL Additional Notes: Patient remains on a regular diet, eating 100% of meals. Agree with diet orders. Following daily in ICU rounds.
--- NOTE | 2022-01-20 13:10 | PCOTNOTE ---
Cancel pt. order for OT services, as pt. is independent in room, confirmed by nursing, patient, and physical therapy. OT services not recommended at this time.
[2022-01-20] MEDS: LORazepam INJ (*CRX) 2 MG/ML VIAL 1 MG IV PUSH ×2 (14:46→20:35)
--- NOTE | 2022-01-20 15:28 | PC.NURSE ---
This patient, Niles Díaz, was received from ICU on 01/20/22 at 1357. Report received from Racheal RN. Patient/family oriented to unit policies and routines
[2022-01-20] MEDS: AMITRIPTYLINE HCL 25 MG TABLET 50 MG PO (20:52)
[2022-01-21] VITALS: BP 141/96; PULSE 84; RESP 18; TEMP 37; O2SAT 100
[2022-01-21] MEDS: chlordiazePOXIDE (*CRX) 25 MG CAPSULE 50 MG PO ×2 (00:15→05:32)
[2022-01-21 02:00] VITALS: BP 146/98; PULSE 76; RESP 18; TEMP 37.1; O2SAT 100
[2022-01-21 04:00] VITALS: BP 146/98; PULSE 76; RESP 18; TEMP 37.2; O2SAT 100
[2022-01-21 06:00] VITALS: BP 143/104; PULSE 85; RESP 18; TEMP 37.1; O2SAT 100
[2022-01-21 06:10] LABS: Basophils Absolute Auto 0.1 K/mm3 (0.0-0.1); Eosinophils Absolute Auto 0.1 K/mm3 (0-0.3); Eosinophils Percent Auto 1.7 % (0-4.4); Immature Granulocyte Absolute 0.06 K/mm3 (0.00-0.031); Immature Granulocyte Percent A 0.8 % (0-0.5); Lymphocytes Absolute Auto 2.28 K/mm3 (0.9-3.2); Lymphocytes Percent Auto 31.7 % (18.3-44.2); Mean Corpuscular Hemoglobin 33.9 pg (26-34); Mean Corpuscular Volume 96.9 fl (80-100); Mean Platelet Volume 9.7 fl (7.4-10.4); Monocytes Absolute Auto 0.5 K/mm3 (0.1-0.6); Monocytes Percent Auto 7.2 % (2.6-8.5); Neutrophils Absolute Auto 4.2 K/mm3 (1.3-6.7); Neutrophils Percent Auto 57.6 % (45.5-73.1); Platelet Count Result 156 k/mm3 (150-375); Red Blood Count 4.13 M/mm3 (4.6-6.20); Red Cell Distribution Width 13.2 % (11.5-14.5); White Blood Count 7.2 K/mm3 (4.5-10.0)
[2022-01-21 06:25] LABS: Anion Gap 12 mmol/L (8-16); Blood Urea Nitrogen 9 mg/dL (9-20); Calcium 9.5 mg/dL (8.4-10.2); Carbon Dioxide 25 mmol/L (22-30); Chloride 103 mmol/L (98-107); Estimated CRCL calculation 121 ml/min; Estimated Glomerular Filt Rate > 60; Glucose 90 mg/dL (65-110); Magnesium 1.6 mg/dL (1.6-2.3); Potassium 3.5 mmol/L (3.4-5.0); Sodium 140 mmol/L (137-145)
[2022-01-21 07:47] VITALS: BP 146/102; PULSE 84; RESP 18; TEMP 37; O2SAT 100
[2022-01-21] MEDS: PANTOPRAZOLE SODIUM IV 40 MG VIAL IV PUSH (08:52)
[2022-01-21] MEDS: MULTIVITAMINS THERAPEUTIC TAB (*BKC) 1 TABLET PO (08:52)
[2022-01-21] MEDS: GABAPENTIN 300 MG CAPSULE PO (08:52)
[2022-01-21] MEDS: AMITRIPTYLINE HCL 25 MG TABLET 50 MG PO (08:53)
[2022-01-21] MEDS: FOLIC ACID 1 MG TABLET PO (08:53)
[2022-01-21] MEDS: busPIRone HCL 10 MG TABLET PO (08:53)
[2022-01-21] MEDS: THIAMINE HCL 100 MG TABLET PO (08:53)
[2022-01-21] MEDS: levETIRAcetam 500 MG TABLET PO (08:53)
[2022-01-21 09:58] VITALS: BP 143/97; PULSE 99; RESP 20; TEMP 36.9; O2SAT 100
--- NOTE | 2022-01-21 10:49 | PM.IMPN ---
Progress Note: A&P Additional Plan (1) Alcohol abuse with withdrawal: Code(s): F10.139 - Alcohol abuse with withdrawal, unspecified Status: Acute Assessment and Plan: -on CIWA protocol. Ativan p.r.n.. Schedule Librium. -he has a history of alcoholic hallucinosis/delirium tremens. -on Ativan, Librium and Precedex.in the ICU. Continue to monitor closely per protocol. (2) Agitation: Code(s): R45.1 - Restlessness and agitation Status: Acute Assessment and Plan: Secondary to alcohol withdrawal. See treatment above. (3) Nausea & vomiting: Code(s): R11.2 - Nausea with vomiting, unspecified Status: Acute Assessment and Plan: Patient's nausea vomiting is significantly improved. Clear liquid diet currently advance as tolerated CT abdomen and pelvis with diffuse hepatic steatosis. And bilaterally rib fractures healing on the left Zofran PRN. (4) Dehydration: Code(s): E86.0 - Dehydration Status: Acute Assessment and Plan: Getting IV fluids. (5) Hepatic steatosis: Code(s): K76.0 - Fatty (change of) liver, not elsewhere classified Status: Acute Assessment and Plan: Alcohol-induced (6)Hypomagnesemia: -Mg of 1.6 -given IV MgS 2gram Subjective Date/time seen: 01/21/22 10:49 Objective Data Vital Signs Vital Signs: Vital Signs - 24 hr 01/20/22 12:00 01/20/22 14:00 01/20/22 20:00 Temperature 98 F 99.3 F Pulse Rate 71 106 H 74 Respiratory Rate 20 18 Blood Pressure 140/88 144/98 H Pulse Oximetry 100 100 01/20/22 22:00 01/21/22 00:00 01/21/22 02:00 Temperature 99.0 F 98.6 F 98.7 F Pulse Rate 74 84 76 Respiratory Rate 18 18 18 Blood Pressure 138/90 141/96 H 146/98 H Pulse Oximetry 100 100 100 01/21/22 04:00 01/21/22 06:00 01/21/22 07:47 Temperature 98.9 F 98.8 F 98.6 F Pulse Rate 76 85 84 Respiratory Rate 18 18 18 Blood Pressure 146/98 H 143/104 H 146/102 H Pulse Oximetry 100 100 100 01/21/22 09:58 Temperature 98.4 F Pulse Rate 99 Respiratory Rate 20 Blood Pressure 143/97 H Pulse Oximetry 100 Intake/Output Intake/Output: Intake & Output 01/18/22 01/19/22 01/20/22 01/21/22 23:59 23:59 23:59 23:59 Intake Total 4090 4840 2270 1009 Output Total 550 4700 2150 Balance 3540 706 701 0090 Meds/Results Medications: Active Medications Generic Name Dose Route Start Last Admin Trade Name Freq PRN Reason Stop Dose Admin Acetaminophen 650 mg 01/20/22 09:16 01/20/22 16:40 Acetaminophen 325 Mg Tablet PO 650 mg Q4H PRN Administration Headache Amitriptyline HCl 50 mg 01/20/22 08:56 01/21/22 08:53 Amitriptyline Hcl 25 Mg Tablet PO 50 mg HS PRN Administration Anxiety Buspirone HCl 10 mg 01/17/22 21:15 01/21/22 08:53 Buspirone Hcl 10 Mg Tablet PO 10 mg TID CAYLA Administration Chlordiazepoxide HCl 50 mg 01/18/22 12:00 01/21/22 05:32 Chlordiazepoxide (*Crx) 25 Mg Capsule PO 50 mg Q6HR CAYLA Administration Folic Acid 1 mg 01/18/22 09:00 01/21/22 08:53 Folic Acid 1 Mg Tablet PO 1 mg DAILY CAYLA Administration Gabapentin 300 mg 01/17/22 21:20 01/21/22 08:52 Gabapentin 300 Mg Capsule PO 300 mg TID CAYLA Administration Ceftriaxone Sodium/Dextrose 1 gm in 50 mls @ 100 mls/hr 01/18/22 18:00 01/20/22 17:50 Rocephin 1 Gm/D5w 50 Ml IVPB Infused Q24H CAYLA Infusion Azithromycin 500 mg in 250 mls @ 250 mls/hr 01/18/22 18:00 01/20/22 17:49 Zithromax IVPB 250 mls/hr Q24H CAYLA Administration Levetiracetam 500 mg 01/17/22 21:20 01/21/22 08:53 Levetiracetam 500 Mg Tablet PO 500 mg BID CAYLA Administration Lorazepam 1 mg 01/17/22 20:34 01/20/22 20:35 Lorazepam Inj (*Crx) 2 Mg/Ml Vial IV PUSH 1 mg Q2H PRN Administration Anxiety Lorazepam 2 mg 01/18/22 08:15 01/20/22 11:57 Lorazepam Inj (*Crx) 2 Mg/Ml Vial IV PUSH 2 mg Q2HR PRN Administration Withdrawal Multivitamins Therapeutic 1 tablet
--- NOTE | 2022-01-21 11:52 | PM.DS ---
DS: Admitting Diagnosis Discharge Date 01/21/2022 Admitting Diagnosis #Alcohol abuse with withdrawal #Agitation #Nausea and Vomiting #Dehydration DS: Discharge Diagnosis Discharge Diagnosis (1) Dehydration: Code(s): E86.0 - Dehydration Status: Acute (2) Alcohol abuse with withdrawal: Code(s): F10.139 - Alcohol abuse with withdrawal, unspecified Status: Acute (3) Agitation: Code(s): R45.1 - Restlessness and agitation Status: Acute (4) Nausea & vomiting: Code(s): R11.2 - Nausea with vomiting, unspecified Status: Acute (5) Hypomagnesemia: Code(s): E83.42 - Hypomagnesemia Status: Acute DS: Summary Hospital Course Hospital Course: 31-year-old gentleman who presented emergency room with complaints of abdominal pain, nausea, and vomiting this started around 9:00 a.m. Patient stated that he does drink approximately a 5th of vodka or whiskey daily, his last drink was at approximately 9:00 a.m. on the morning of admission. Patient stated that he thought he may have had blood in his vomit, but typically when he does not drink and goes into alcohol withdrawal he does hallucinate. Patient states he has felt very shaky and he feels like he may be going into withdrawals very soon. Patient stated that he does have a history of seizures with his alcohol withdrawals. Patient states that he does drink daily, and does cocaine approximately once monthly as well as marijuana on a routine basis. Patient denied any chest discomfort, shortness of breath, lightheadedness, dizziness, syncopal, or near syncopal episodes. Patient stated he does take his gabapentin and Keppra daily for his seizures. He was admitted for the management of alcohol abuse with withdrawal and agitation, he managed in the ICU with IV Ativan, Librium and Precedex and was transferred to general bed on 01/20/22 after he got off Precedex. Regarding his nausea & vomiting,work up with CT abdomen and pelvis revealed diffuse hepatic steatosis. He was managed with clear liquid diet and Zofran PRN. Dehydration was managed with IV fluids. Hepatic steatosis noted on CT abdomen is alcohol-induced. Patient was counselled regarding quitting drinking alcohol. His serum magnesium levels were intermittently low due to alcoholism and it was replaced with IV MgS. Patient discharged home with PO thiamine 100mg daily, he is alert, oriented X3, ambulating well and in good spirits. He is to continue all his home medications. Time Spent with Patient Time attestation: Total time spent providing and/or coordinating discharge services: 40 minutes Exam Const: General: cooperative, comfortable and no acute distress Resp: Effort & Inspection: normal respiratory effort and able to speak in complete sentences Auscultation: clear to auscultation bilaterally Cardio: Jugular venous distension: no JVD Rate: regular rate Rhythm: regular rhythm Heart sounds: S1 normal heart sound present and S2 normal heart sound present GI: Inspection: normal to inspection GI Palp: No abdominal tenderness Auscultation: normal bowel sounds Neuro: General: oriented to person, oriented to place, oriented to time, patient oriented x3, gait normal, moves all extremities and no focal motor deficits Extrem: General: normal to inspection and full ROM DS: Data Data Completed and Pending Labs on day of discharge: Labs from last 24 hours 01/21/22 01/21/22 06:03 06:03 WBC 7.2 RBC 4.13 L Hgb 14.0 Hct 40.0 L MCV 96.9 MCH 33.9 MCHC 35.0 RDW 13.2 Plt Count 156 MPV 9.7 Immature Gran % (Auto) 0.8 H Neut % (Auto) 57.6 Lymph % (Auto) 31.7 Jones % (Auto) 7.2 Eos % (Auto) 1.7 Baso % (Auto) 1.0 Lymph # (Auto) 2.28 Jones # (Auto) 0.5 Eos # (Auto) 0.1 Baso # (Auto) 0.1 Abs Immat Gran (auto) 0.06 H Absolute Neuts (auto) 4.2 Absolute Nucleated RBC 0.0 Nucleated RBC % 0.0 Sodium 140 Potassium 3.5 Chloride 103 Carb
== END 2022-01-21 12:22 | disposition home or self-care (01) | DRG 897 ==
LOC: ANHED 18:37 → ANHICU 21:09 → ANH3MEDSUR 01-21 10:54 → ANHICU 01-24 12:46
PROVIDERS: Emergency Medicine; Internal Medicine; Nurse Practitioner Adult Health; Admitting Provider Internal Medicine; Emergency Provider Emergency Medicine; Visit Provider Internal Medicine
DX: F10.239 Alcohol dependence with withdrawal, unspecified (principal); Y90.8 Blood alcohol level of 240 mg/100 ml or more; G25.2 Other specified forms of tremor; E86.0 Dehydration; R45.1 Restlessness and agitation; K76.0 Fatty (change of) liver, not elsewhere classified; D69.59 Other secondary thrombocytopenia; M79.604 Pain in right leg; E83.42 Hypomagnesemia; F17.210 Nicotine dependence, cigarettes, uncomplicated; Z20.822 Contact with and (suspected) exposure to COVID-19
CPT/HCPCS: 36415; 71045; 73552; 74177; 80048; 80053; 80307; 81001; 83690; 83735; 84100; 84484; 85025; 85027; 85055; 93005; 96361; 96374; 96375; 96376; 99285; A9270; C9113; C9803; J0456; J0696; J1200; J1650; J2060; J2405; J3411; J3475; J7030; Q9967; U0003; U0005

== ENCOUNTER 2022-03-19 03:48 | Inpatient (IN) | payer BC, SELFPAY ==
[2022-03-19] VITALS (38 sets, daily range): BP systolic 123–153; BP diastolic 81–111; PULSE 69–142; RESP 9–34; TEMP 36.7–37.2; O2SAT 97–100; BMI 25.0
--- NOTE | ~2022-03-19 | XR_ITS ---
EXAMINATION: XR chest 1V portable INDICATION: Vomiting TECHNIQUE: Portable AP chest at 0451 hours COMPARISON: 01/17/2022 FINDINGS: The lungs are free of acute opacities. No pleural effusion or pneumothorax. The cardiomedia stinal silhouette is normal. IMPRESSION: 1. No acute cardiopulmonary abnormality. Reviewed, dictated and finalized at location A.
--- NOTE | ~2022-03-19 | CT_ITS ---
EXAMINATION: CT abdomen pelvis w con INDICATION: Abdominal pain, GI bleeding, history of alcohol abuse TECHNIQUE: Computed tomographic images of the abdomen and pelvis were obtained after the administrati on of 100 cc of Omnipaque 300 intravenous contrast. The dose-length product (DLP) was 439.94 mGy-cm. Automated exposure control and iterative reconstruction technique were employed. COMPARISON: 01/17/2022, 06/08/2021 FINDINGS: There is a small sliding hiatal area. There is circumferential wall thickening of the visua lized distal esophagus. The liver, spleen, and adrenal glands are normal. There is chronic mild diste ntion of the gallbladder. A stable focal area of low attenuation seen in the head of the pancreas, li carlos manuel related to prior pancreatitis given history of alcohol use. The right kidney is surgically absen t. The left kidney is unremarkable. No pathologically enlarged abdominal or pelvic lymph nodes are id entified. There is no free intraperitoneal gas or evidence of bowel obstruction. The appendix is norm al. There is questionable wall thickening of the ascending colon. There is antegrade intramedullary r od and interlocking intratrochanteric screw fixation of the right femur. There is a fat-containing um bilical hernia. IMPRESSION: 1. Circumferential wall thickening of the distal esophagus, consistent with esophagitis. Consider end oscopy. 2. Possible wall thickening of the ascending colon which could reflect colitis. 3. Chronic gallbladder distention, likely due to fasting state. Reviewed, dictated and finalized at location A. IMPRESSION: 1. Circumferential wall thickening of the distal esophagus, consistent with eso phagitis. Consider endoscopy. 2. Possible wall thickening of the ascending colon which could reflect colitis. 3. Chronic gallbladder distention, likely due to fasting state.
--- NOTE | 2022-03-19 04:05 | ED.GIBLEED ---
HPI - GI Bleed General Chief complaint: GI Bleed Stated complaint: vomiting blood Time Seen by Provider: 03/19/22 04:04 History of Present Illness HPI Narrative: The patient is a 31-year-old male with a history of alcohol abuse and alcohol withdrawal, presenting to the emergency department for evaluation of nausea, vomiting and abdominal pain. Patient reports that he has been vomiting coffee-ground emesis contents since 2 AM this morning. Patient reports there is also been some bright red blood present in his emesis. He reports upper abdominal pain and chest pain. Patient reports diaphoresis, chills. Patient reports last alcohol intake was over 48 hours ago. He denies any abdominal distention. He denies history of cirrhosis, esophageal varices. Patient denies recent fall or injury. He denies significant abdominal distention. Pain in the upper abdomen and chest is aching, burning in nature. Patient also reporting palpitations, diaphoresis. He denies any shortness of breath or cough. Per chart review, high admitted the patient to the hospital in December for alcohol withdrawal. Patient was admitted initially to the intensive care unit. Related Data Home Medications Medication Instructions Recorded Confirmed buspirone 10 mg tablet 10 mg PO TID 01/17/22 01/17/22 chlordiazepoxide HCl 25 mg capsule 25 mg PO Q6H PRN Alcohol Withdrawal 01/17/22 01/17/22 folic acid 1 mg tablet 1 mg PO DAILY 01/17/22 01/17/22 gabapentin 300 mg capsule 300 mg PO TID 01/17/22 01/17/22 levetiracetam 500 mg tablet 500 mg PO BID 01/17/22 01/17/22 amitriptyline 50 mg tablet See Rx Instructions .Route 01/20/22 01/20/22 .COMPLEX PRN Agitation atomoxetine 80 mg capsule 80 mg PO HS 01/20/22 01/20/22 doxepin 10 mg capsule 10 mg PO DAILY 01/20/22 01/20/22 Allergies Allergy/AdvReac Type Severity Reaction Status Date / Time Penicillins Allergy Unknown Unknown Verified 03/19/22 03:50 Review of Systems Review of Systems: CONSTITUTIONAL: Denies fever, reports chills and sweats ENT: Denies rhinorrhea, congestion, sore throat, or otalgia. CARDIOVASCULAR: Denies chest pain, reports palpitations, denies leg edema RESPIRATORY: Denies cough or dyspnea. GASTROINTESTINAL: Reports upper abdominal pain, nausea and vomiting GENITOURINARY: Denies dysuria or hematuria. SKIN: Denies rash or itching. MUSCULOSKELETAL: Denies back pain, joint pain, or myalgia. NEUROLOGIC: Denies headache, numbness, or weakness. [facility] Past Medical History Medical History Alcohol withdrawal syndrome Alcoholism Elevated LFTs Head injury Hypomagnesemia Leukopenia Thrombocytopenia Surgical History Surgical History No significant past surgical history Family History Family History Father Diabetes mellitus Hypertension Other Family history of cardiovascular disease Social History Social History Smoking packs per day: 1 Smoking cigarettes per day: 20.0 Years smoked: 6 Smoking pack-years: 6.00 Smoking status: Current every day smoker Tobacco type: cigarettes Alcohol intake: current Substance use: current Substance use type: marijuana and crack/cocaine Other substance usage details: drinks 1/5 of whiskey or vodka daily and beer Last use: 01/17/2022 Gender identity (if verbalized by the patient): Male Spiritual care concerns: No Exam Narrative: GENERAL: Awake, alert, unwell appearing, tremulous, diaphoretic HEAD: Normocephalic, atraumatic. EYES: PERRLA and EOMI. ENT: Nares clear, no rhinorrhea or epistaxis. Mucous membranes dry, dried blood present in the posterior oropharynx NECK: Supple. CHEST: No respiratory distress, breathing even and non labored HEART: Tachycardic rate, sinus rhythm ABDOMEN:Non distended, non tender, intact well
--- NOTE | 2022-03-19 04:25 | ECG_ITS ---
Measurements Intervals [place] Rate: 118 P: 73 WV: 147 QRS: 67 QRSD: 85 T: 23 QT: 314 QTc: 441 Interpretive Statements SINUS TACHYCARDIA OTHERWISE NORMAL ECG ABNORMAL RHYTHM ECG COMPARED TO ECG 01/17/2022 17:40:50 SINUS TACHYCARDIA NOW PRESENT Electronically Signed On 03-19-2022 7:57:42 CDT by Nam Gill M.D.
[2022-03-19] MEDS: SODIUM CHLORIDE 0.9% IV 2,000 ML 999 ML IV CONT (04:36)
[2022-03-19] MEDS: ONDANSETRON INJ 4 MG/2 ML VIAL IV PUSH ×3 (04:38→22:49)
[2022-03-19] MEDS: PANTOPRAZOLE SODIUM IV 40 MG VIAL IV PUSH ×2 (04:38→21:35)
[2022-03-19] MEDS: THIAMINE HCL 200 MG/2 ML VIAL 100 MG IV PUSH (04:43)
[2022-03-19] MEDS: LORazepam INJ (*CRX) 2 MG/ML VIAL IV PUSH ×3 (04:43→07:39)
[2022-03-19] MEDS: diphenhydrAMINE HCl INJ 50 MG/ML VIAL IV PUSH (04:43)
[2022-03-19 04:56] LABS: Basophils Absolute Auto 0.2 K/mm3 (0.0-0.1); Basophils Percent Auto 1.7 % (0.2-1.2); Hematocrit 47.4 % (42.0-52.0); Hemoglobin 16.7 g/dL (14.0-18.0); Immature Granulocyte Absolute 0.04 K/mm3 (0.00-0.031); Immature Granulocyte Percent A 0.4 % (0-0.5); Lymphocytes Absolute Auto 1.66 K/mm3 (0.9-3.2); Lymphocytes Percent Auto 16.7 % (18.3-44.2); Mean Corpuscular HGB Conc 35.2 g/dl (32-36); Mean Corpuscular Volume 93.7 fl (80-100); Mean Platelet Volume 8.8 fl (7.4-10.4); Monocytes Absolute Auto 0.2 K/mm3 (0.1-0.6); Neutrophils Absolute Auto 7.9 K/mm3 (1.3-6.7); Neutrophils Percent Auto 79.2 % (45.5-73.1); Nucleated Red Blood Cells Perc 0.2 % (0.0-0.2); Platelet Count Result 516 k/mm3 (150-375); Red Blood Count 5.06 M/mm3 (4.6-6.20); Red Cell Distribution Width 12.5 % (11.5-14.5); White Blood Count 9.9 K/mm3 (4.5-10.0)
[2022-03-19] MEDS: FOLIC ACID 1 MG/0.2 ML INJ IV PUSH (05:04)
[2022-03-19 05:10] LABS: INR 1.1; Prothrombin Time 13.3 Seconds (11.1-14.7)
[2022-03-19 05:11] LABS: Partial Thromboplastin Time 27.6 SECONDS (22.3-36.8)
[2022-03-19 05:21] LABS: Alanine Aminotransferase 98 U/L (6-50); Albumin Level 5.7 g/dL (3.5-5.1); Alkaline Phosphatase 109 U/L (38-126); Anion Gap 25 mmol/L (8-16); Aspartate Amino Transferase 72 U/L (17-59); Bilirubin,Total 0.4 mg/dL (0.2-1.3); Blood Urea Nitrogen 16 mg/dL (9-20); Calcium 9.1 mg/dL (8.4-10.2); Carbon Dioxide 21 mmol/L (22-30); Chloride 102 mmol/L (98-107); Estimated CRCL calculation 109 ml/min; Estimated Glomerular Filt Rate > 60; Glucose 157 mg/dL (65-110); Lipase 241 U/L (23-300); Potassium 3.9 mmol/L (3.4-5.0); Sodium 148 mmol/L (137-145)
--- NOTE | 2022-03-19 05:29 | PC.NURSE ---
Unable to collect blood cultures, multiple RNs attempted,unsuccessful. supervisor paint department notified. Phlebotomy called.
[2022-03-19 05:32] LABS: Troponin I 0.014 ng/mL (0.000-0.034)
[2022-03-19 05:45] LABS: Lactic Acid Reflex 7.3 mmol/L (0.7-2.0)
[2022-03-19 05:46] LABS: Ethanol 397 mg/dL (<10)
--- NOTE | 2022-03-19 05:46 | PC.NURSE ---
Patient IVs paused while taken to CT via stretcher.
[2022-03-19 05:49] LABS: SARS-CoV-2 RNA PCR Negative
[2022-03-19] MEDS: METOCLOPRAMIDE HCL INJ 10 MG/2 ML VIAL IV PUSH (05:58)
--- NOTE | 2022-03-19 07:25 | PC.NURSE ---
Care assumed of pt at this time. Pt attempted urine specimen but was unsuccessful. Unable to get labs, phlebotomy called. Pt and mother made aware that pt may not have ice chips.
[2022-03-19 08:07] LABS: Reflex Lactic Acid Yes or No Add Lactic
[2022-03-19 08:14] LABS: Lactic Acid Reflex 5.8 mmol/L (0.7-2.0)
--- NOTE | 2022-03-19 08:32 | PC.NURSE ---
Attempted to call report x 2, no answer. lock assembler and laborer hide house aware. Attempted to call ICU charge nurse with no response.
--- NOTE | 2022-03-19 08:57 | ADMGEN ---
This patient, Niles Díaz, was admitted to Intensive Care Unit-9 at 0848 from the ED . Patient/family oriented to hospital policies and general routines including ID bracelet, bed and alarms, visiting hours, pain management, procedures, bathroom and other care routines, personal items, smoking policy, room service/diet, and visiting hours. Information on how to activate the Rapid Response Team has been discussed. Patient/Family are encouraged to report perceived risks to care and to ask questions if they do not understand what they are told or what they should do.
--- NOTE | 2022-03-19 09:24 | WPDCNINT ---
Assessment and Plan Assessment and plan (1) Alcohol intoxication: Code(s): F10.929 - Alcohol use, unspecified with intoxication, unspecified Status: Acute Assessment and Plan: IV fluids Thiamine and folic acid IV I have ordered IV Ativan for agitation and anxiety Monitor for signs of withdrawal and treat with p.r.n. IV Ativan (2) Lactic acidosis: Code(s): E87.2 - Acidosis Status: Acute Assessment and Plan: Likely secondary to dehydration, alcohol intoxication and poor clearance due to impaired liver function Continue IV fluids Monitor levels No evidence infection at this point since will hold antibiotics (3) Dehydration: Code(s): E86.0 - Dehydration Status: Acute Assessment and Plan: Patient is dehydrated. Received 2 L IV fluid bolus Continue IV fluids (4) Elevated liver enzymes: Code(s): R74.8 - Abnormal levels of other serum enzymes Status: Acute Assessment and Plan: Secondary to alcohol intake Hepatic steatosis on last CT scan Monitor levels (5) Abdominal pain: Code(s): R10.9 - Unspecified abdominal pain Status: Acute Assessment and Plan: Secondary to alcohol intoxication Normal life Last CT scan showed diffuse hepatic steatosis CT scan in the ER was negative as per ER physician sign-out although report is pending (6) Thrombocytopenia: Code(s): D69.6 - Thrombocytopenia, unspecified Status: Acute Assessment and Plan: Patient has chronic thrombocytopenia but platelet count is abnormally high today which is likely sign of dehydration Monitor (7) Nausea & vomiting: Code(s): R11.2 - Nausea with vomiting, unspecified Status: Acute Assessment and Plan: Alcohol intoxication (8) Upper GI bleeding: Code(s): K92.2 - Gastrointestinal hemorrhage, unspecified Status: Acute Assessment and Plan: Patient reports vomiting blood for last couple of days. His hemoglobin was abnormally high which is likely a sign of dehydration He vomited in ICU and did not had any blood in it But still he has a possibility of Fozia-Yang tear, gastritis or peptic ulcer disease IV Protonix q.12 hours Hemoglobin q.6 hours -I do anticipate the hemoglobin will drop as he receives IV fluids for dehydration NPO Consult GI Additional Plan SCDs for DVT prophylaxis [employer] Manager Consult Note Consult date: 03/19/22 HPI: Niles Díaz is a 31 year old male with past medical history alcoholism, frequent admissions for intoxication or withdrawal, alcoholic liver disease, thrombocytopenia presented the ED today with complains of nausea, abdominal pain and vomiting blood. Patient states that he noticed some blood in his vomitus couple of days ago. Although he denied in ED but he admitted to did continue to drink alcohol. He states that his last drink was this morning around 2:00 a.m.. He drinks 1 bottle of vodka every day. He also smokes 2-3 cigarettes a day and smokes marijuana. Denies any other drug use. He states that he was having nausea vomiting and was as stated with small amount of blood. He also complains abdominal pain is intermittent over last 2 3 days and 04/03, pain is over diffuse abdomen with no radiation, no aggravating or relieving factors. Patient denies any diarrhea or noticing any blood in his stool. No dark stool. Patient denies fever, chest pain, shortness of breath, cough, diarrhea, headache or constipation. All the systems were reviewed and were negative Review of Systems Review of Systems: All systems reviewed & are unremarkable except as noted in HPI and below (HPI) PMFSH Past Medical History Medical History Alcohol withdrawal syndrome Alcoholism Elevated LFTs Head injury Hypomagnesemia Leukopenia Thrombocytopenia Surgical History Surgical History No significa
--- NOTE | 2022-03-19 09:41 | PC.NURSE ---
Called ER for report for ICU 9 admission at 0834, received report from Vanesa HUFF at this time.
[2022-03-19] MEDS: LORazepam INJ (*CRX) 2 MG/ML VIAL 4 MG IV PUSH ×5 (11:14→22:49)
[2022-03-19] MEDS: PROMETHAZINE HCL 25 MG/ML AMPUL IM (11:14)
[2022-03-19] MEDS: KCL 20 MEQ/0.45% NS 1,000 ML 150 ML IV CONT ×2 (11:15→18:02)
[2022-03-19 11:24] LABS: Magnesium 1.5 mg/dL (1.6-2.3)
[2022-03-19 11:28] LABS: Lactic Acid 5.1 mmol/L (0.7-2.0)
[2022-03-19 11:54] LABS: Appearance Urine Clear (Clear); Bilirubin Urine Negative (Negative); Blood Urine Negative (Negative); Color Urine Yellow (Yellow); Glucose Urine UA Trace mg/dL (Negative); Ketones Urine 1+ mg/dL (Negative); Leukocyte Esterase Ur Negative LEU/UL (Negative); Nitrate Urine Negative (Negative); Protein Urine 3+ mg/dL (Negative); Urobilinogen Urine 0.2 mg/dL (<2.0)
[2022-03-19 12:10] LABS: Bacteria Urine Trace /hpf; RBC Urine 0-2 /hpf (0-2); Squamous Epithelial Cell Urine Rare /hpf (Few); WBC Urine 0-3 /hpf
[2022-03-19 12:13] LABS: Add Urine Microscopic? YES
[2022-03-19 12:39] LABS: Hematocrit 38.7 % (42.0-52.0); Hemoglobin 13.8 g/dL (14.0-18.0)
[2022-03-19] MEDS: SODIUM CHLORIDE 0.9% IV 1,000 ML 999 ML IV CONT (13:07)
[2022-03-19] MEDS: levETIRAcetam 500 MG TABLET PO ×2 (13:19→21:34)
[2022-03-19] MEDS: busPIRone HCL 10 MG TABLET PO ×2 (13:19→16:57)
[2022-03-19] MEDS: GABAPENTIN 300 MG CAPSULE PO ×2 (13:19→16:57)
--- NOTE | 2022-03-19 14:46 | WPDGICN ---
Assessment and Plan Assessment and plan (1) Upper GI bleeding: Code(s): K92.2 - Gastrointestinal hemorrhage, unspecified Status: Acute Assessment and Plan: h/h stable for now no more report of blood with emesis continue with iv protonix probably egd monday ok to have liquid diet (2) Abdominal pain: Code(s): R10.9 - Unspecified abdominal pain Status: Acute Assessment and Plan: stable, elevated lactic acid (3) Elevated liver enzymes: Code(s): R74.8 - Abnormal levels of other serum enzymes Status: Acute Assessment and Plan: chronic, h/o alcoholic liver disease bili is normal (4) Lactic acidosis: Code(s): E87.2 - Acidosis Status: Acute Assessment and Plan: from alcohol intoxication, dehydration, etc 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 (5) Dehydration: Code(s): E86.0 - Dehydration Status: Acute (6) Alcohol intoxication: Code(s): F10.929 - Alcohol use, unspecified with intoxication, unspecified Status: Acute Assessment and Plan: monitor for withdrawal/DT CIWA protocol thiamine, etc (7) Hepatic steatosis: Code(s): K76.0 - Fatty (change of) liver, not elsewhere classified Status: Acute (8) Alcohol abuse with withdrawal: Code(s): F10.139 - Alcohol abuse with withdrawal, unspecified Status: Acute GI Consult Note Consult date/time: 03/19/22 14:46 Reason for consult: alcohol abuse, coffee ground emesis HPI: Niles Díaz is a 31 year old male with past medical history alcoholism, frequent admissions for intoxication or withdrawal, alcoholic liver disease, thrombocytopenia who came to the ED with complains of nausea, abdominal pain and vomiting blood.?He normally drinks 1 bottle of vodka daily and came here after noted some blood in his vomitus 2 days ago. He also smokes 2-3 cigarettes a day and smokes marijuana.?He also complains abdominal pain is intermittent over last 2-3 days and moderate intensity. He is dehydrated in fact hb 16 on admission then down to 14 (after fluids), lactic acid 5, normal bun and creatitine, transaminases 90's with normal bili, he is hemodynamically stable and no witnessed of any blood in emesis and no report of melena. He is anxious and has tremors. Review of Systems Constitutional: Constitutional: Reports fatigue Eyes: Eyes: Denies blurry vision ENT: Reports Normal hearing present Cardiovascular: Cardiovascular: Denies leg edema Respiratory: Respiratory: Denies chest congestion Gastrointestinal: Gastrointestinal: Reports nausea and Reports vomiting Musculoskeletal: Musculoskeletal: Reports arthralgias Integumentary/Breasts: Skin/Breast: Denies dry skin Neurologic: Comments: tremors Psychiatric: Psychiatric: Reports anxiety PMFSH Past Medical History Medical History Alcohol withdrawal syndrome Alcoholism Elevated LFTs Head injury Hypomagnesemia Leukopenia Thrombocytopenia Surgical History Surgical History No significant past surgical history Family History Family History Father Diabetes mellitus Hypertension Grandparent Family history of cardiovascular disease Social History Social History Smoking packs per day: 0.10 Smoking cigarettes per day: 2.0 Years smoked: 10 Smoking pack-years: 1.00 Smoking status: Current every day smoker Tobacco type: cigarettes Second hand tobacco smoke exposure: Yes Alcohol intake: current Drinks per week: 70 Substance use: current Substance use type: marijuana Other substance usage details: drinks 1/5 of whiskey or vodka daily and beer Last use: 01/17/2022 Gender identity (if verbalized by the patient): Male Spiritual care concerns: No Meds Home Medications and
--- NOTE | 2022-03-19 15:45 | PM.IMHP ---
H&P: HPI History of Present Illness Date/Time: 03/19/22 15:45 Chief Complaint: frequent alcohol intoxication Narrative: ED-HPI Narrative: The patient is a 31-year-old male with a history of alcohol abuse and alcohol withdrawal, presenting to the emergency department for evaluation of nausea, vomiting and abdominal pain.? Patient reports that he has been vomiting coffee-ground emesis contents since 2 AM this morning.? Patient reports there is also been some bright red blood present in his emesis.? He reports upper abdominal pain and chest pain.? Patient reports diaphoresis, chills.? Patient reports last alcohol intake was over 48 hours ago.? He denies any abdominal distention.? He denies history of cirrhosis, esophageal varices.? Patient denies recent fall or injury.? He denies significant abdominal distention.? Pain in the upper abdomen and chest is aching, burning in nature.? Patient also reporting palpitations, diaphoresis.? He denies any shortness of breath or cough. Per chart review, high admitted the patient to the hospital in December for alcohol withdrawal.? Patient was admitted initially to the intensive care unit. 31-year-old male with history of alcohol abuse, frequent intoxication and admission to the hospital presented emergency department with complaint abdominal pain nausea or vomiting on occasion hematemesis, patient last drink 2:00 a.m. this morning, patient has a visible tremors, apparently patient has history alcohol withdrawal seizure and being treated Keppra, patient will be seen by GI for hematemesis and further recommendation to follow, patient is admitted in ICU for close observation with CIWA protocol, Ativan as needed as well as folic acid and thiamine, will also monitor patient electrolytes, will have a PT OT evaluate the patient, patient will benefit going to alcohol rehab center for his alcohol addiction. patient is admitted as observation status Review of Systems Constitutional: Constitutional: Reports fatigue PMFSH Past Medical History Medical History Alcohol withdrawal syndrome Alcoholism Elevated LFTs Head injury Hypomagnesemia Leukopenia Thrombocytopenia Surgical History Surgical History No significant past surgical history Family History Family History Father Diabetes mellitus Hypertension Grandparent Family history of cardiovascular disease Social History Social History Smoking packs per day: 0.10 Smoking cigarettes per day: 2.0 Years smoked: 10 Smoking pack-years: 1.00 Smoking status: Current every day smoker Tobacco type: cigarettes Second hand tobacco smoke exposure: Yes Alcohol intake: current Drinks per week: 70 Substance use: current Substance use type: marijuana Other substance usage details: drinks 1/5 of whiskey or vodka daily and beer Last use: 01/17/2022 Gender identity (if verbalized by the patient): Male Spiritual care concerns: No Meds Home Medications and Allergies Home Medications Medication Instructions Recorded Confirmed Type buspirone 10 mg tablet 10 mg PO TID 01/17/22 03/19/22 History chlordiazepoxide HCl 25 mg capsule 25 mg PO Q6H PRN Alcohol Withdrawal 01/17/22 03/19/22 History folic acid 1 mg tablet 1 mg PO DAILY 01/17/22 03/19/22 History gabapentin 300 mg capsule 300 mg PO TID 01/17/22 03/19/22 History levetiracetam 500 mg tablet 500 mg PO BID 01/17/22 03/19/22 History amitriptyline 50 mg tablet See Rx Instructions .Route 01/20/22 03/19/22 History .COMPLEX PRN Agitation thiamine HCl (vitamin B1) 100 mg 100 mg PO QAM #30 tabs 01/21/22 03/19/22 Rx tablet (Vitamin B-1) Allergies Allergy/AdvReac Type Severity Reaction Status Date / Time Penicillins Allergy Unknown Hives Verified 03/19/22 09:05 Vital Signs Vit
[2022-03-19] MEDS: chlordiazePOXIDE (*CRX) 25 MG CAPSULE PO (18:01)
[2022-03-19 18:22] LABS: Hematocrit 37.5 % (42.0-52.0); Hemoglobin 12.8 g/dL (14.0-18.0)
[2022-03-19] MEDS: LORazepam INJ (*CRX) 2 MG/ML VIAL 1 MG IV PUSH (20:29)
[2022-03-19] MEDS: AMITRIPTYLINE HCL 25 MG TABLET BY MOUTH (21:35)
[2022-03-20] VITALS (15 sets, daily range): BP systolic 134–156; BP diastolic 73–107; PULSE 60–80; RESP 17–20; TEMP 36.3–36.9; O2SAT 95–100
[2022-03-20] MEDS: chlordiazePOXIDE (*CRX) 25 MG CAPSULE PO ×4 (00:04→17:37)
[2022-03-20] MEDS: AMITRIPTYLINE HCL 25 MG TABLET BY MOUTH ×2 (00:04→21:30)
[2022-03-20] MEDS: KCL 20 MEQ/0.45% NS 1,000 ML 150 ML IV CONT ×4 (00:51→21:08)
[2022-03-20 01:32] LABS: Hematocrit 34.7 % (42.0-52.0); Hemoglobin 12.1 g/dL (14.0-18.0)
[2022-03-20 04:15] LABS: Hematocrit 36.6 % (42.0-52.0); Hemoglobin 12.7 g/dL (14.0-18.0); Mean Corpuscular HGB Conc 34.7 g/dl (32-36); Mean Corpuscular Hemoglobin 32.9 pg (26-34); Mean Corpuscular Volume 94.8 fl (80-100); Mean Platelet Volume 8.9 fl (7.4-10.4); Platelet Count Result 198 k/mm3 (150-375); Red Blood Count 3.86 M/mm3 (4.6-6.20); Red Cell Distribution Width 12.3 % (11.5-14.5); White Blood Count 7.2 K/mm3 (4.5-10.0)
[2022-03-20 04:25] LABS: Alanine Aminotransferase 60 U/L (6-50); Albumin Level 4.2 g/dL (3.5-5.1); Alkaline Phosphatase 74 U/L (38-126); Anion Gap 7 mmol/L (8-16); Aspartate Amino Transferase 46 U/L (17-59); Bilirubin,Total 1.2 mg/dL (0.2-1.3); Blood Urea Nitrogen 8 mg/dL (9-20); Calcium 8.4 mg/dL (8.4-10.2); Carbon Dioxide 27 mmol/L (22-30); Chloride 102 mmol/L (98-107); Estimated CRCL calculation 121 ml/min; Estimated Glomerular Filt Rate > 60; Glucose 94 mg/dL (65-110); Magnesium 1.4 mg/dL (1.6-2.3); Phosphorus 1.9 mg/dL (2.5-4.5); Potassium 3.5 mmol/L (3.4-5.0); Sodium 136 mmol/L (137-145)
[2022-03-20] MEDS: LORazepam INJ (*CRX) 2 MG/ML VIAL 4 MG IV PUSH ×2 (04:31→22:03)
[2022-03-20] MEDS: MAGNESIUM SULF 2 GM/WATER 50ML 2 GM/50 ML BAG IVPB (08:17)
[2022-03-20] MEDS: CALCIUM CARBONATE (TUMS) 500 MG (200 MG ELEMENTAL) PO (08:17)
[2022-03-20] MEDS: ACETAMINOPHEN 325 MG TABLET 650 MG PO ×2 (08:17→21:07)
[2022-03-20] MEDS: FOLIC ACID 1 MG/0.2 ML INJ IV PUSH (08:17)
[2022-03-20] MEDS: PANTOPRAZOLE SODIUM IV 40 MG VIAL IV PUSH ×2 (08:18→21:07)
[2022-03-20] MEDS: GABAPENTIN 300 MG CAPSULE PO ×3 (08:18→17:38)
[2022-03-20] MEDS: THIAMINE HCL 200 MG/2 ML VIAL 100 MG IV PUSH (08:18)
[2022-03-20] MEDS: busPIRone HCL 10 MG TABLET PO ×3 (08:18→17:38)
[2022-03-20] MEDS: levETIRAcetam 500 MG TABLET PO ×2 (08:18→21:08)
[2022-03-20] MEDS: LORazepam INJ (*CRX) 2 MG/ML VIAL IV PUSH ×2 (08:20→20:01)
--- NOTE | 2022-03-20 09:45 | WPDINTPN ---
Progress Note: A&P Assessment and Plan (1) Alcohol intoxication: Code(s): F10.929 - Alcohol use, unspecified with intoxication, unspecified Status: Acute Assessment and Plan: IV fluids Thiamine and folic acid IV I have ordered IV Ativan for agitation and anxiety Monitor for signs of withdrawal and treat with p.r.n. IV Ativan (2) Lactic acidosis: Code(s): E87.2 - Acidosis Status: Acute Assessment and Plan: Likely secondary to dehydration, alcohol intoxication and poor clearance due to impaired liver function Improved with IV fluids and will be continued Monitor levels No evidence infection at this point since will hold antibiotics (3) Dehydration: Code(s): E86.0 - Dehydration Status: Acute Assessment and Plan: Patient is dehydrated. Received 2 L IV fluid bolus Improved with IV fluids and IV fluids will be continued (4) Elevated liver enzymes: Code(s): R74.8 - Abnormal levels of other serum enzymes Status: Acute Assessment and Plan: Secondary to alcohol intake Hepatic steatosis on last CT scan Monitor levels which are improving (5) Abdominal pain: Code(s): R10.9 - Unspecified abdominal pain Status: Acute Assessment and Plan: Secondary to alcohol intoxication Normal lipase Last CT scan showed diffuse hepatic steatosis CT scan IMPRESSION: 1. Circumferential wall thickening of the distal esophagus, consistent with esophagitis. Consider endoscopy. 2. Possible wall thickening of the ascending colon which could reflect colitis. 3. Chronic gallbladder distention, likely due to fasting state. Continue PPI Continue antiemetics Patient afebrile with normal WBC count and no tenderness on abdominal exam. No diarrhea. Hold antibiotics and monitor (6) Thrombocytopenia: Code(s): D69.6 - Thrombocytopenia, unspecified Status: Acute Assessment and Plan: Patient has chronic thrombocytopenia but platelet count is abnormally high on presentation which is likely sign of dehydration Monitor (7) Nausea & vomiting: Code(s): R11.2 - Nausea with vomiting, unspecified Status: Acute Assessment and Plan: P.r.n. Zofran (8) Upper GI bleeding: Code(s): K92.2 - Gastrointestinal hemorrhage, unspecified Status: Acute Assessment and Plan: Patient reports vomiting blood for last couple of days. His hemoglobin was abnormally high which is likely a sign of dehydration He vomited in ICU and did not had any blood in it But still he has a possibility of Fozia-Yang tear, gastritis or peptic ulcer disease IV Protonix q.12 hours Hemoglobin q.6 hours -I do anticipate the hemoglobin will drop as he receives IV fluids for dehydration Patient was seen by GI and EGD planned for Monday Continue liquid diet per (9) Electrolyte abnormality: Code(s): E87.8 - Other disorders of electrolyte and fluid balance, not elsewhere classified Status: Acute Assessment and Plan: Replace low potassium phosphate and magnesium Additional Plan SCDs for DVT prophylaxis Transfer out of ICU today Subjective Date/time seen: 03/20/22 09:45 Overnight events reviewed. Afebrile. Heart rate improved. Patient states that he feels better. Still nauseous but vomiting has resolved. Abdominal pain is present but better. He is requesting his buspirone be resume. Review of system was also positive for headache. Denies any vomiting blood. No bowel movements with blood. All other systems were reviewed and were negative. Review of Systems Review of Systems: All systems reviewed & are unremarkable except as noted in HPI and below (HPI) Exam Narrative: General: Pt is alert awake and in NAD Lungs/Chest: Trachea central Clear BS B/L, No crackles or wheezing. Cardiac: RRR. Normal S1 S2. No murmurs Circulation: Pedal pulses are intact and symmetrical. Abdomen: Normal bowel sounds.. Soft. NT. ND. Scar
--- NOTE | 2022-03-20 13:37 | WPDGIPROGNO ---
Progress Note: A&P Assessment and Plan (1) Upper GI bleeding: Code(s): K92.2 - Gastrointestinal hemorrhage, unspecified Status: Acute Assessment and Plan: no more report of emesis, probably was esophagitis or gastritis but given alcoholic liver disease will do EGD tomorrow h/h stable after fluids (2) Elevated liver enzymes: Code(s): R74.8 - Abnormal levels of other serum enzymes Status: Acute Assessment and Plan: trending down from etoh use (3) Abdominal pain: Code(s): R10.9 - Unspecified abdominal pain Status: Acute Assessment and Plan: stable (4) Lactic acidosis: Code(s): E87.2 - Acidosis Status: Acute (5) Alcohol intoxication: Code(s): F10.929 - Alcohol use, unspecified with intoxication, unspecified Status: Acute Assessment and Plan: [facility] protocol thiamine (6) Alcohol abuse with withdrawal: Code(s): F10.139 - Alcohol abuse with withdrawal, unspecified Status: Acute (7) Electrolyte abnormality: Code(s): E87.8 - Other disorders of electrolyte and fluid balance, not elsewhere classified Status: Acute Subjective Date/time seen: 03/20/22 13:37 Interval history: resting comfortable, no more report of emesis per metal riveter of Systems Review of Systems: All systems reviewed & are unremarkable except as noted in HPI and below (HPI) Exam Narrative: General: Pt is alert awake and in NAD Lungs/Chest: Trachea central Clear BS B/L, No crackles or wheezing. Cardiac: RRR. Normal S1 S2. No murmurs Circulation: Pedal pulses are intact and symmetrical. Abdomen: Normal bowel sounds.. Soft. NT. ND. Scar from past surgery in midline with some keloid formation around likely. No tenderness Extremities: No clubbing, cyanosis or edema. Warm : Burns in place Neurologic: Follows commands. Moves all 4 extremities PERRL AO x3 Skin: Seborrheic dermatitis on face Objective Data Vital Signs Vital Signs: Vital Signs - 24 hr 03/19/22 14:00 03/19/22 14:00 03/19/22 15:34 Temperature Pulse Rate 91 107 H Pulse Rate [Monitor] 111 H Respiratory Rate 19 Blood Pressure 150/88 H Pulse Oximetry 99 Oxygen Delivery 03/19/22 16:00 03/19/22 16:00 03/19/22 18:00 Temperature 98.7 F Pulse Rate 94 Pulse Rate [Monitor] 90 97 Respiratory Rate 17 Blood Pressure 134/86 Pulse Oximetry 99 Oxygen Delivery 03/19/22 18:00 03/19/22 16:00 03/19/22 18:00 Temperature 98.2 F Pulse Rate 98 84 101 H Pulse Rate [Monitor] Respiratory Rate 19 Blood Pressure 137/83 Pulse Oximetry 98 Oxygen Delivery 03/19/22 20:00 03/19/22 22:00 03/19/22 22:43 Temperature 98.4 F Pulse Rate 76 69 Pulse Rate [Monitor] 77 Respiratory Rate 22 H 25 H Blood Pressure 134/87 138/92 H Pulse Oximetry 98 97 Oxygen Delivery 03/20/22 00:00 03/20/22 00:11 03/20/22 02:00 Temperature 98.5 F Pulse Rate 79 80 Pulse Rate [Monitor] 72 Respiratory Rate 18 20 Blood Pressure 138/85 134/83 Pulse Oximetry 99 95 Oxygen Delivery 03/20/22 04:00 03/20/22 04:00 03/20/22 06:00 Temperature 98.5 F Pulse Rate 70 73 Pulse Rate [Monitor] 74 Respiratory Rate 18 20 Blood Pressure 156/102 H 137/73 Pulse Oximetry 100 99 Oxygen Delivery 03/20/22 08:00 03/20/22 08:00 03/20/22 08:00 Temperature 97.7 F Pulse Rate 68 78 Pulse Rate [Monitor] 79 Respiratory Rate 17 Blood Pressure 144/96 H 144/96 H Pulse Oximetry 98 Oxygen Delivery 03/20/22 08:00 03/20/22 12:00 03/20/22 12:34 Temperature 97.3 F L Pulse Rate 62 Pulse Rate [Monitor] 60 Respiratory Rate 18 Blood Pressure 136/90 136/90 Pulse Oximetry 98 99 Oxygen Delivery Room Air 03/20/22 12:00 Temperature Pulse Rate 63 Pulse Rate [Monitor] Respiratory Rate Blood Pressure Pulse Oximetry Oxygen Delivery Intake/Output Intake/Output: Intake & Output 03/17/22 03/18/22 03/19/22
--- NOTE | 2022-03-20 15:27 | PM.IMPN ---
Progress Note: A&P Assessment and Plan (1) Alcohol intoxication: Code(s): F10.929 - Alcohol use, unspecified with intoxication, unspecified Status: Acute Assessment and Plan: 31-year-old male with history of alcohol abuse, frequent intoxication and admission to the hospital presented emergency department with complaint abdominal pain nausea or vomiting on occasion hematemesis, patient last drink 2:00 a.m. this morning, patient has a visible tremors, apparently patient has history alcohol withdrawal seizure and being treated Keppra, patient will be seen by GI for hematemesis and further recommendation to follow, patient is admitted in ICU for close observation with CIWA protocol, Ativan as needed as well as folic acid and thiamine, will also monitor patient electrolytes, will have a PT OT evaluate the patient, patient will benefit going to alcohol rehab center for his alcohol addiction. 03/20/2022 interval history: patient with alcohol intoxication and for risk of DT and monitor with CIWA protocol, Ativan p.r.n. and Librium patient remains clinically stay does not show significant signs of DT, discussed with boom boss will transfer the patient out of ICU to medical floor and monitor, upon arrival patient had hematemesis he has not had any more emesis, and was seen by GI, patient is scheduled to have EGD tomorrow will follow-up and further recommendation to follow (2) Upper GI bleeding: Code(s): K92.2 - Gastrointestinal hemorrhage, unspecified Status: Acute Assessment and Plan: patient with alcohol abuse high risk of alcohol gastritis will be seen by GI and further recommendation to (3) Elevated liver enzymes: Code(s): R74.8 - Abnormal levels of other serum enzymes Status: Acute Assessment and Plan: most likely secondary alcohol abuse and possibly early sign of review of cirrhosis (4) Dehydration: Code(s): E86.0 - Dehydration Status: Acute Assessment and Plan: secondary to alcohol and poly urea patient being hydrated and monitor (5) Lactic acidosis: Code(s): E87.2 - Acidosis Status: Acute Assessment and Plan: secondary to alcohol abuse, polyuria and dehydration patient is being hydrated and lactic acid is trending down Subjective Date/time seen: 03/20/22 15:27 HPI:31-year-old male with history of alcohol abuse, frequent intoxication and admission to the hospital presented emergency department with complaint abdominal pain nausea or vomiting on occasion hematemesis, patient last drink 2:00 a.m. this morning, patient has a visible tremors, apparently patient has history alcohol withdrawal seizure and being treated Keppra, patient will be seen by GI for hematemesis and further recommendation to follow, patient is admitted in ICU for close observation with CIND protocol, Ativan as needed as well as folic acid and thiamine, will also monitor patient electrolytes, will have a PT OT evaluate the patient, patient will benefit going to alcohol rehab center for his alcohol addiction. 03/20/2022 interval history: patient with alcohol intoxication and for risk of DT and monitor with CIWA protocol, Ativan p.r.n. and Librium patient remains clinically stay does not show significant signs of DT, discussed with boom boss will transfer the patient out of ICU to medical floor and monitor, upon arrival patient had hematemesis he has not had any more emesis, and was seen by GI, patient is scheduled to have EGD tomorrow will follow-up and further recommendation to follow Review of Systems Review of Systems: All systems reviewed & are unremarkable except as noted in HPI and below (HPI) Exam Narrative: patient appears chronically ill older than his age Patient is comfortable, NAD HEENT: eyes are clear and none icteric LUNGS: normal respiratory effort ABD: not distended Lower extremities: no edema SKIN: nonjaundiced Neuro: grossly intact. Objective Data Benita
[2022-03-20] MEDS: LORazepam INJ (*CRX) 2 MG/ML VIAL 1 MG IV PUSH (16:07)
[2022-03-20] MEDS: ONDANSETRON INJ 4 MG/2 ML VIAL IV PUSH (21:09)
[2022-03-21] VITALS (17 sets, daily range): BP systolic 141–169; BP diastolic 92–113; PULSE 50–74; RESP 11–20; TEMP 35.9–36.8; O2SAT 98–100
[2022-03-21] MEDS: chlordiazePOXIDE (*CRX) 25 MG CAPSULE PO ×5 (00:25→23:58)
[2022-03-21] MEDS: KCL 20 MEQ/0.45% NS 1,000 ML 150 ML IV CONT ×2 (03:49→10:14)
[2022-03-21 04:27] LABS: Hematocrit 38.8 % (42.0-52.0); Hemoglobin 12.8 g/dL (14.0-18.0); Mean Corpuscular Hemoglobin 32.9 pg (26-34); Mean Corpuscular Volume 99.7 fl (80-100); Platelet Count Result 155 k/mm3 (150-375); Red Blood Count 3.89 M/mm3 (4.6-6.20); Red Cell Distribution Width 12.1 % (11.5-14.5); White Blood Count 5.5 K/mm3 (4.5-10.0)
[2022-03-21] MEDS: LORazepam INJ (*CRX) 2 MG/ML VIAL IV PUSH (05:39)
[2022-03-21 07:45] LABS: Alanine Aminotransferase 48 U/L (6-50); Albumin Level 3.8 g/dL (3.5-5.1); Alkaline Phosphatase 79 U/L (38-126); Anion Gap 3 mmol/L (8-16); Aspartate Amino Transferase 39 U/L (17-59); Bilirubin,Total 0.7 mg/dL (0.2-1.3); Blood Urea Nitrogen 7 mg/dL (9-20); Calcium 8.7 mg/dL (8.4-10.2); Carbon Dioxide 26 mmol/L (22-30); Chloride 107 mmol/L (98-107); Estimated CRCL calculation 121 ml/min; Estimated Glomerular Filt Rate > 60; Glucose 86 mg/dL (65-110); Lactic Acid Reflex 0.7 mmol/L (0.7-2.0); Magnesium 1.9 mg/dL (1.6-2.3); Phosphorus 3.1 mg/dL (2.5-4.5); Potassium 4.2 mmol/L (3.4-5.0); Sodium 136 mmol/L (137-145)
[2022-03-21] MEDS: CALCIUM CARBONATE (TUMS) 500 MG (200 MG ELEMENTAL) PO (08:39)
[2022-03-21] MEDS: levETIRAcetam 500 MG TABLET PO ×2 (08:39→20:11)
[2022-03-21] MEDS: THIAMINE HCL 200 MG/2 ML VIAL 100 MG IV PUSH (08:39)
[2022-03-21] MEDS: ONDANSETRON INJ 4 MG/2 ML VIAL IV PUSH (08:39)
[2022-03-21] MEDS: FOLIC ACID 1 MG/0.2 ML INJ IV PUSH (08:39)
[2022-03-21] MEDS: ACETAMINOPHEN 325 MG TABLET 650 MG PO ×3 (08:39→20:48)
[2022-03-21] MEDS: GABAPENTIN 300 MG CAPSULE PO ×3 (08:39→17:19)
[2022-03-21] MEDS: busPIRone HCL 10 MG TABLET PO ×3 (08:39→17:19)
[2022-03-21] MEDS: PANTOPRAZOLE SODIUM IV 40 MG VIAL IV PUSH ×2 (08:39→20:12)
[2022-03-21] MEDS: LORazepam INJ (*CRX) 2 MG/ML VIAL 4 MG IV PUSH ×2 (08:39→20:48)
[2022-03-21] MEDS: LORazepam INJ (*CRX) 2 MG/ML VIAL 1 MG IV PUSH ×2 (11:37→17:19)
--- NOTE | 2022-03-21 14:04 | PC.NURSE ---
To GI Lab per [alisa ]. Report given to [DARIA Meyer ].
[2022-03-21] MEDS: LACTATED RINGERS 1,000 ML 150 ML IV CONT (14:14)
--- NOTE | 2022-03-21 14:38 | WPDANESEPPF ---
Anes - Initial Pre Proc Eval Procedure: Operation Date: 03/21/22 14:15 Proposed Procedures p Esophagogastroduodenoscopy - Travis Day MD Date/Time: 03/21/22 14:38 Surgeon: Tiny Stephens DO Pre Op Diagnosis: Alcoholic gastritis/dehydration/lactic acidosis Patient Data Age: 31 Gender: M Height: 1.88 m Weight: 90.7 kg Last Vital Signs Temp 36.8 C 03/21/22 14:15 Pulse 60 03/21/22 14:15 Resp 18 03/21/22 14:15 BP 154/92 H 03/21/22 14:15 Pulse Ox 100 03/21/22 14:15 O2 Del Method Room Air 03/21/22 14:15 Allergies Allergy/AdvReac Type Severity Reaction Status Date / Time Penicillins Allergy Unknown Hives Verified 03/19/22 09:05 Home Medications Medication Instructions Recorded Confirmed Type buspirone 10 mg tablet 10 mg PO TID 01/17/22 03/19/22 History chlordiazepoxide HCl 25 mg capsule 25 mg PO Q6H PRN Alcohol Withdrawal 01/17/22 03/19/22 History folic acid 1 mg tablet 1 mg PO DAILY 01/17/22 03/19/22 History gabapentin 300 mg capsule 300 mg PO TID 01/17/22 03/19/22 History levetiracetam 500 mg tablet 500 mg PO BID 01/17/22 03/19/22 History amitriptyline 50 mg tablet See Rx Instructions .Route 01/20/22 03/19/22 History .COMPLEX PRN Agitation thiamine HCl (vitamin B1) 100 mg 100 mg PO QAM #30 tabs 01/21/22 03/19/22 Rx tablet (Vitamin B-1) Laboratory Tests 03/21/22 03/21/22 03/21/22 04:21 04:21 04:21 WBC 5.5 K/mm3 K/mm3 (4.5-10.0) RBC 3.89 M/mm3 L M/mm3 (4.6-6.20) Hgb 12.8 g/dL L g/dL (14.0-18.0) Hct 38.8 % L % (42.0-52.0) MCV 99.7 fl D fl (80-100) MCH 32.9 pg pg (26-34) MCHC 33.0 g/dl g/dl (32-36) RDW 12.1 % % (11.5-14.5) Plt Count 155 k/mm3 k/mm3 (150-375) MPV 9.0 fl fl (7.4-10.4) Sodium 136 mmol/L L mmol/L (137-145) Potassium 4.2 mmol/L mmol/L (3.4-5.0) Chloride 107 mmol/L mmol/L (98-107) Carbon Dioxide 26 mmol/L mmol/L (22-30) Anion Gap 3 mmol/L L mmol/L (8-16) BUN 7 mg/dL L mg/dL (9-20) Creatinine 0.90 mg/dL mg/dL (0.7-1.3) Estim Creat Clear Calc 121 ml/min ml/min Estimated GFR > 60 (59 - ) Glucose 86 mg/dL mg/dL (65-110) Lactic Acid 0.7 mmol/L mmol/L (0.7-2.0) Calcium 8.7 mg/dL mg/dL (8.4-10.2) Phosphorus 3.1 mg/dL mg/dL (2.5-4.5) Magnesium 1.9 mg/dL mg/dL (1.6-2.3) Total Bilirubin 0.7 mg/dL mg/dL (0.2-1.3) AST 39 U/L U/L (17-59) ALT 48 U/L U/L (6-50) Alkaline Phosphatase 79 U/L U/L (38-126) Total Protein 7.0 g/dL g/dL (6.3-8.2) Albumin 3.8 g/dL g/dL (3.5-5.1) Patient hx anesthesia problems: none Family hx anesthesia problems: none Results Review: All pre-operative results and documents have been reviewed as part of the pre-operative evaluation. [facility] Past Medical History Medical History Alcohol withdrawal syndrome Alcoholism Elevated LFTs Head injury Hypomagnesemia Leukopenia Thrombocytopenia Surgical History Surgical History No significant past surgical history Family History Family History Father Diabetes mellitus Hypertension Grandparent Family history of cardiovascular disease Social History Social History Smoking packs per day: 0.10 Smoking cigarettes per day: 2.0 Years smoked: 10 Smoking pack-years: 1.00 Smoking status: Current every day smoker Tobacco type: cigarettes Second hand tobacco smoke exposure: Yes Alcohol intake: current Drinks per week: 70 Substance use: current Substance use type: marijuana Other sub
--- NOTE | 2022-03-21 14:44 | PM.IMPN ---
Progress Note: A&P Assessment and Plan (1) Alcohol intoxication: Code(s): F10.929 - Alcohol use, unspecified with intoxication, unspecified Status: Acute Assessment and Plan: 31-year-old male with history of alcohol abuse, frequent intoxication and admission to the hospital presented emergency department with complaint abdominal pain nausea or vomiting on occasion hematemesis, patient last drink 2:00 a.m. this morning, patient has a visible tremors, apparently patient has history alcohol withdrawal seizure and being treated Keppra, patient will be seen by GI for hematemesis and further recommendation to follow, patient is admitted in ICU for close observation with CIWA protocol, Ativan as needed as well as folic acid and thiamine, will also monitor patient electrolytes, will have a PT OT evaluate the patient, patient will benefit going to alcohol rehab center for his alcohol addiction. 03/20/2022 interval history: patient with alcohol intoxication and for risk of DT and monitor with CIWA protocol, Ativan p.r.n. and Librium patient remains clinically stay does not show significant signs of DT, discussed with coil machine operator will transfer the patient out of ICU to medical floor and monitor, upon arrival patient had hematemesis he has not had any more emesis, and was seen by GI, patient is scheduled to have EGD tomorrow will follow-up and further recommendation to follow. 03/21/2022 interval history: patient with alcohol intoxication and for risk of DT and monitor with CIWA protocol, Ativan p.r.n. and Librium patient remains clinically stable, does not show significant signs of DT, discussed with coil machine operator will transfer the patient out of ICU to medical floor and monitor, upon arrival patient had hematemesis he has not had any more emesis, and was seen by GI, patient is scheduled to have EGD today, will follow-up and further recommendation to follow, Patient last drink was on day of arrival on 03/19 and his alcohol level was 397 patient remains high risk of DT until 03/23 will continue to monitor, (2) Upper GI bleeding: Code(s): K92.2 - Gastrointestinal hemorrhage, unspecified Status: Acute Assessment and Plan: patient with alcohol abuse high risk of alcohol gastritis will be seen by GI and further recommendation to (3) Elevated liver enzymes: Code(s): R74.8 - Abnormal levels of other serum enzymes Status: Acute Assessment and Plan: most likely secondary alcohol abuse and possibly early sign of review of cirrhosis (4) Dehydration: Code(s): E86.0 - Dehydration Status: Acute Assessment and Plan: secondary to alcohol and poly urea patient being hydrated and monitor (5) Lactic acidosis: Code(s): E87.2 - Acidosis Status: Acute Assessment and Plan: secondary to alcohol abuse, polyuria and dehydration patient is being hydrated and lactic acid is trending down Additional Plan SCDs for DVT prophylaxis Transfer out of ICU today Subjective Date/time seen: 03/21/22 14:44 03/21/2022 interval history: patient with alcohol intoxication and for risk of DT and monitor with CIWA protocol, Ativan p.r.n. and Librium patient remains clinically stable, does not show significant signs of DT, discussed with coil machine operator will transfer the patient out of ICU to medical floor and monitor, upon arrival patient had hematemesis he has not had any more emesis, and was seen by GI, patient is scheduled to have EGD today, will follow-up and further recommendation to follow, Patient last drink was on day of arrival on 03/19 and his alcohol level was 397 patient remains high risk of DT until 03/23 will continue to monitor, Review of Systems Review of Systems: All systems reviewed & are unremarkable except as noted in HPI and below (HPI) Exam Narrative: patient appears chronically ill older than his age Patient is comfortable, NAD HEENT: eyes are clear and none icteric LUNGS: vania
--- NOTE | 2022-03-21 15:55 | PC.NURSE ---
Returned from GI Lab.
--- NOTE | 2022-03-21 16:32 | ADMGEN ---
This patient, Niles Díaz, was admitted to Intensive Care Unit-9. Patient/family oriented to hospital policies and general routines including ID bracelet, bed and alarms, visiting hours, pain management, procedures, bathroom and other care routines, personal items, smoking policy, room service/diet, and visiting hours. Information on how to activate the Rapid Response Team has been discussed. Patient/Family are encouraged to report perceived risks to care and to ask questions if they do not understand what they are told or what they should do.
[2022-03-21] MEDS: AMITRIPTYLINE HCL 25 MG TABLET BY MOUTH (21:28)
[2022-03-22] VITALS (14 sets, daily range): BP systolic 143–160; BP diastolic 93–123; PULSE 55–95; RESP 12–20; TEMP 36.1–36.7; O2SAT 98–100
[2022-03-22] MEDS: LORazepam INJ (*CRX) 2 MG/ML VIAL IV PUSH ×3 (00:05→04:56)
--- NOTE | 2022-03-22 01:50 | PC.NURSE ---
This patient, Niles Díaz, was received from ICU on 03/22/22 at 0150. Patient/family oriented to unit policies and routines on 3 medical surgical.
[2022-03-22] MEDS: chlordiazePOXIDE (*CRX) 25 MG CAPSULE PO ×3 (04:56→12:17)
[2022-03-22 06:52] LABS: Hemoglobin 12.9 g/dL (14.0-18.0); Mean Corpuscular HGB Conc 35.8 g/dl (32-36); Mean Corpuscular Volume 92.1 fl (80-100); Mean Platelet Volume 9.7 fl (7.4-10.4); Platelet Count Result 193 k/mm3 (150-375); Red Blood Count 3.91 M/mm3 (4.6-6.20); White Blood Count 6.4 K/mm3 (4.5-10.0)
[2022-03-22 06:53] LABS: Alanine Aminotransferase 55 U/L (6-50); Albumin Level 4.4 g/dL (3.5-5.1); Alkaline Phosphatase 88 U/L (38-126); Anion Gap 6 mmol/L (8-16); Aspartate Amino Transferase 62 U/L (17-59); Bilirubin,Total 0.4 mg/dL (0.2-1.3); Blood Urea Nitrogen 14 mg/dL (9-20); Calcium 9.3 mg/dL (8.4-10.2); Carbon Dioxide 27 mmol/L (22-30); Chloride 100 mmol/L (98-107); Estimated CRCL calculation 110 ml/min; Estimated Glomerular Filt Rate > 60; Glucose 79 mg/dL (65-110); Magnesium 1.6 mg/dL (1.6-2.3); Phosphorus 3.8 mg/dL (2.5-4.5); Potassium 4.5 mmol/L (3.4-5.0); Sodium 133 mmol/L (137-145)
[2022-03-22] MEDS: THIAMINE HCL 100 MG TABLET PO (08:20)
[2022-03-22] MEDS: busPIRone HCL 10 MG TABLET PO ×3 (08:20→17:13)
[2022-03-22] MEDS: PANTOPRAZOLE SODIUM IV 40 MG VIAL IV PUSH ×2 (08:20→22:26)
[2022-03-22] MEDS: GABAPENTIN 300 MG CAPSULE PO ×3 (08:20→17:13)
[2022-03-22] MEDS: levETIRAcetam 500 MG TABLET PO ×2 (08:20→22:26)
[2022-03-22] MEDS: FOLIC ACID 1 MG TABLET PO (08:20)
[2022-03-22] MEDS: LORazepam INJ (*CRX) 2 MG/ML VIAL 4 MG IV PUSH ×3 (09:16→15:13)
--- NOTE | 2022-03-22 10:42 | WPDANESPN ---
Anes - Prog Note Post-Op Date/Time: 03/22/22 10:42 Cardiovascular status: normal Respiratory status: normal Airway patency: baseline Mental status: baseline Post-Op hydration status: normal Vital Signs: Last Vital Signs Temp 36.1 C L 03/22/22 08:00 Pulse 88 03/22/22 08:00 Resp 18 03/22/22 08:00 BP 160/123 H 03/22/22 08:00 Pulse Ox 100 03/22/22 08:00 O2 Del Method Room Air 03/22/22 02:19 Pain Score (VAS): 4/10 SORTO I/O: Intake & Output 03/21/22 03/22/22 03/22/22 23:59 07:59 15:59 Intake Total 2990 1037 Output Total 1800 Balance 1190 1037 Laboratory Tests 03/22/22 05:55 03/22/22 05:55 03/22/22 03/22/22 05:55 05:55 WBC 6.4 RBC 3.91 L Hgb 12.9 L Hct 36.0 L MCV 92.1 D MCH 33.0 MCHC 35.8 RDW 12.0 Plt Count 193 MPV 9.7 Sodium 133 L Potassium 4.5 Chloride 100 Carbon Dioxide 27 Anion Gap 6 L BUN 14 D Creatinine 1.00 Estim Creat Clear Calc 110 Estimated GFR > 60 Glucose 79 Calcium 9.3 Phosphorus 3.8 Magnesium 1.6 Total Bilirubin 0.4 AST 62 H ALT 55 H Alkaline Phosphatase 88 Total Protein 8.0 Albumin 4.4 Patient Feedback: Patient satisfied with anesthetic care.
--- NOTE | 2022-03-22 12:12 | WPDGIPROGNO ---
Progress Note: A&P Assessment and Plan (1) Erosive esophagitis: Code(s): K22.10 - Ulcer of esophagus without bleeding Status: Acute Assessment and Plan: this was cause of hematemesis on admission no more episode will need ppi twice daily and avoid using more alcohol ok to go home by GI standpoint egd in 3 months as outpatient (2) Upper GI bleeding: Code(s): K92.2 - Gastrointestinal hemorrhage, unspecified Status: Acute Assessment and Plan: resolved (3) Abdominal pain: Code(s): R10.9 - Unspecified abdominal pain Status: Acute Assessment and Plan: improved (4) Elevated liver enzymes: Code(s): R74.8 - Abnormal levels of other serum enzymes Status: Acute Assessment and Plan: from etoh use (5) Alcohol intoxication: Code(s): F10.929 - Alcohol use, unspecified with intoxication, unspecified Status: Acute (6) Lactic acidosis: Code(s): E87.2 - Acidosis Status: Acute Subjective Date/time seen: 03/22/22 12:12 Interval history: doing ok, denies any more nausea and he is eating. EGD showed erosive esophagitis Review of Systems Review of Systems: All systems reviewed & are unremarkable except as noted in HPI and below (HPI) Exam Narrative: General: Pt is alert awake and in NAD Lungs/Chest: Trachea central Clear BS B/L, No crackles or wheezing. Cardiac: RRR. Normal S1 S2. No murmurs Circulation: Pedal pulses are intact and symmetrical. Abdomen: Normal bowel sounds.. Soft. NT. ND. Scar from past surgery in midline with some keloid formation around likely. No tenderness Extremities: No clubbing, cyanosis or edema. Warm Neurologic: Follows commands. Moves all 4 extremities PERRL AO x3 Skin: Seborrheic dermatitis on face Objective Data Vital Signs Vital Signs: Vital Signs - 24 hr 03/21/22 14:15 03/21/22 15:13 03/21/22 15:23 Temperature 98.3 F Pulse Rate 60 71 57 L Pulse Rate [Monitor] Respiratory Rate 18 20 20 Blood Pressure 154/92 H 142/105 H 154/112 H Pulse Oximetry 100 100 98 Oxygen Delivery Room Air Room Air Room Air 03/21/22 15:33 03/21/22 15:56 03/21/22 16:00 Temperature 96.7 F L Pulse Rate 53 L 58 L 52 L Pulse Rate [Monitor] Respiratory Rate 20 15 Blood Pressure 166/111 H 154/111 H Pulse Oximetry 100 100 Oxygen Delivery Room Air 03/21/22 17:14 03/21/22 20:00 03/21/22 20:48 Temperature 96.9 F L Pulse Rate Pulse Rate [Monitor] 50 L 74 Respiratory Rate Blood Pressure Pulse Oximetry Oxygen Delivery 03/21/22 20:00 03/21/22 20:54 03/21/22 20:00 Temperature 96.9 F L Pulse Rate 61 63 63 Pulse Rate [Monitor] Respiratory Rate 17 17 Blood Pressure 141/102 H Pulse Oximetry 100 100 Oxygen Delivery Room Air 03/21/22 23:56 03/21/22 23:56 03/22/22 00:00 Temperature Pulse Rate 61 81 Pulse Rate [Monitor] 61 Respiratory Rate 17 Blood Pressure Pulse Oximetry Oxygen Delivery 03/22/22 02:00 03/22/22 02:01 03/22/22 02:19 Temperature 97.8 F Pulse Rate 71 Pulse Rate [Monitor] 71 Respiratory Rate 12 Blood Pressure 146/101 H 146/101 H Pulse Oximetry 100 99 Oxygen Delivery Room Air 03/22/22 05:35 03/22/22 04:00 03/22/22 08:00 Temperature 97.8 F 97.0 F L Pulse Rate 74 55 L 68 Pulse Rate [Monitor] Respiratory Rate 12 18 Blood Pressure 145/93 H 160/123 H Pulse Oximetry 100 100 Oxygen Delivery 03/22/22 08:00 03/22/22 11:57 Temperature Pulse Rate Pulse Rate [Monitor] 88 62 Respiratory Rate Blood Pressure Pulse Oximetry Oxygen Delivery Intake/Output Intake/Output: Intake & Output 03/19/22 03/20/22 03/21/22 03/22/22 23:59 23:59 23:59 23:59 Intake Total 3186 7219 4415 1037 Output Total 617 4121 6418 Balance 5330 533 -0387 1037 Meds/Results Medications: Active Medications Generic Name Dose Route Start Last Admin Trade Name Freq PRN Reason Stop Dose Admin A
--- NOTE | 2022-03-22 14:25 | PM.IMPN ---
Progress Note: A&P Assessment and Plan (1) Alcohol intoxication: Code(s): F10.929 - Alcohol use, unspecified with intoxication, unspecified Status: Acute Assessment and Plan: 31-year-old male with history of alcohol abuse, frequent intoxication and admission to the hospital presented emergency department with complaint abdominal pain nausea or vomiting on occasion hematemesis, patient last drink 2:00 a.m. this morning, patient has a visible tremors, apparently patient has history alcohol withdrawal seizure and being treated Keppra, patient will be seen by GI for hematemesis and further recommendation to follow, patient is admitted in ICU for close observation with CIWA protocol, Ativan as needed as well as folic acid and thiamine, will also monitor patient electrolytes, will have a PT OT evaluate the patient, patient will benefit going to alcohol rehab center for his alcohol addiction. 03/20/2022 interval history: patient with alcohol intoxication and for risk of DT and monitor with CIWA protocol, Ativan p.r.n. and Librium patient remains clinically stay does not show significant signs of DT, discussed with high school computer science teacher will transfer the patient out of ICU to medical floor and monitor, upon arrival patient had hematemesis he has not had any more emesis, and was seen by GI, patient is scheduled to have EGD tomorrow will follow-up and further recommendation to follow. 03/21/2022 interval history: patient with alcohol intoxication and for risk of DT and monitor with CIWA protocol, Ativan p.r.n. and Librium patient remains clinically stable, does not show significant signs of DT, discussed with high school computer science teacher will transfer the patient out of ICU to medical floor and monitor, upon arrival patient had hematemesis he has not had any more emesis, and was seen by GI, patient is scheduled to have EGD today, will follow-up and further recommendation to follow, Patient last drink was on day of arrival on 03/19 and his alcohol level was 397 patient remains high risk of DT until 03/23 will continue to monitor, 03/22 interval history: patient with alcohol intoxication and for risk of DT and monitor with CIWA protocol, Ativan p.r.n. and Librium 25 q6, patient had been clinically stable, did not show significant signs of DT, discussed with high school computer science teacher, transferred the patient out of ICU to medical floor and monitor, however today patient is hallucinating, agitated and his CIWA up score is over 25, will start the patient Librium 50 mg q.6 for 1 day reassess tomorrow, upon arrival patient had hematemesis he has not had any more emesis, and was seen by GI, patient had have EGD, showed gastritis and GERD and GI recommend PPI, will follow-up and further recommendation to follow, Patient last drink was on day of arrival on 03/19 and his alcohol level was 397 patient remains high risk of DT until 03/23 will continue to monitor, (2) Upper GI bleeding: Code(s): K92.2 - Gastrointestinal hemorrhage, unspecified Status: Acute Assessment and Plan: patient with alcohol abuse high risk of alcohol gastritis will be seen by GI and further recommendation to (3) Elevated liver enzymes: Code(s): R74.8 - Abnormal levels of other serum enzymes Status: Acute Assessment and Plan: most likely secondary alcohol abuse and possibly early sign of review of cirrhosis (4) Dehydration: Code(s): E86.0 - Dehydration Status: Acute Assessment and Plan: secondary to alcohol and poly urea patient being hydrated and monitor (5) Lactic acidosis: Code(s): E87.2 - Acidosis Status: Acute Assessment and Plan: secondary to alcohol abuse, polyuria and dehydration patient is being hydrated and lactic acid is trending down Additional Plan SCDs for DVT prophylaxis Transfer out of ICU today Subjective Date/time seen: 03/22/22 14:25 03/22 interval history: patient with alcohol intoxication and for risk of DT
--- NOTE | 2022-03-22 16:22 | PC.NURSE ---
This patient, Niles Díaz, was transferred to [ICU bed 2 ] on 03/22/22 at 1600. Personal belongings sent with patient. Report given to [Glo ]. Appropriate documentation sent with patient.
--- NOTE | 2022-03-22 16:51 | PC.NURSE ---
This patient, Niles Díaz, was received from [ 306] on 03/22/22 at 1605. Patient/family oriented to unit policies and routines
[2022-03-22] MEDS: chlordiazePOXIDE (*CRX) 25 MG CAPSULE 50 MG PO (17:13)
[2022-03-22] MEDS: AMITRIPTYLINE HCL 25 MG TABLET BY MOUTH (22:26)
[2022-03-23] VITALS: BP 142/105; PULSE 72; RESP 20; TEMP 36.9; O2SAT 100
[2022-03-23] MEDS: chlordiazePOXIDE (*CRX) 25 MG CAPSULE 50 MG PO (00:12)
[2022-03-23 02:00] VITALS: PULSE 90; RESP 20; O2SAT 98
[2022-03-23 04:00] VITALS: BP 149/123; PULSE 78; PULSE 82; RESP 20; TEMP 36.9; O2SAT 97
[2022-03-23 04:44] LABS: Hematocrit 41.6 % (42.0-52.0); Hemoglobin 14.8 g/dL (14.0-18.0); Mean Corpuscular HGB Conc 35.6 g/dl (32-36); Mean Corpuscular Hemoglobin 33.1 pg (26-34); Mean Corpuscular Volume 93.1 fl (80-100); Mean Platelet Volume 9.7 fl (7.4-10.4); Platelet Count Result 200 k/mm3 (150-375); Red Blood Count 4.47 M/mm3 (4.6-6.20); Red Cell Distribution Width 12.3 % (11.5-14.5); White Blood Count 7.5 K/mm3 (4.5-10.0)
[2022-03-23 05:01] LABS: Alanine Aminotransferase 88 U/L (6-50); Alkaline Phosphatase 107 U/L (38-126); Anion Gap 11 mmol/L (8-16); Aspartate Amino Transferase 94 U/L (17-59); Bilirubin,Total 0.6 mg/dL (0.2-1.3); Blood Urea Nitrogen 15 mg/dL (9-20); Calcium 9.8 mg/dL (8.4-10.2); Carbon Dioxide 23 mmol/L (22-30); Chloride 100 mmol/L (98-107); Estimated CRCL calculation 121 ml/min; Estimated Glomerular Filt Rate > 60; Glucose 123 mg/dL (65-110); Magnesium 1.6 mg/dL (1.6-2.3); Phosphorus 4.4 mg/dL (2.5-4.5); Potassium 4.6 mmol/L (3.4-5.0); Sodium 134 mmol/L (137-145)
[2022-03-23 06:00] VITALS: PULSE 85; RESP 22; O2SAT 96
[2022-03-23 07:36] VITALS: BP 155/113; PULSE 89; RESP 12; TEMP 36.8; O2SAT 100
[2022-03-23 08:00] VITALS: BP 155/113; PULSE 90; O2SAT 100
[2022-03-23] MEDS: FOLIC ACID 1 MG TABLET PO (09:34)
[2022-03-23] MEDS: levETIRAcetam 500 MG TABLET PO (09:34)
[2022-03-23] MEDS: THIAMINE HCL 100 MG TABLET PO (09:34)
[2022-03-23] MEDS: GABAPENTIN 300 MG CAPSULE PO (09:34)
--- NOTE | 2022-03-23 11:39 | WPDCNINT ---
Assessment and Plan Assessment and plan (1) Alcohol abuse with withdrawal: Code(s): F10.139 - Alcohol abuse with withdrawal, unspecified Status: Acute Assessment and Plan: Patient with alcohol abuse, withdrawal. -CIWA scores have between 0 to 4 in the ICU -not requiring any p.r.n. Ativan or Precedex infusion (2) Erosive esophagitis: Code(s): K22.10 - Ulcer of esophagus without bleeding Status: Acute Assessment and Plan: EGD was done on 03/21/2022 which showed reflux esophagitis and gastritis. Patient was placed on Protonix IV q.12 hours. (3) Elevated liver enzymes: Code(s): R74.8 - Abnormal levels of other serum enzymes Status: Acute Assessment and Plan: likely due to hepatic steatosis and cirrhosis (4) Dehydration: Code(s): E86.0 - Dehydration Status: Acute Assessment and Plan: Resolved Additional Plan Code status: full code Critical care time spent: 33 minutes This dictation may have been done utilizing a voice recognition system. Attempts have been made to correct errors. However, there may be uncorrected grammatical, spelling, and recognition errors present. Due to a high probability of clinically significant, life threatening deterioration, the patient required my highest level of preparedness to intervene emergently and I personally spent this critical care time directly and personally managing the patient. This critical care time included obtaining a history; examining the patient; pulse oximetry; ordering and review of studies; arranging urgent treatment with development of a management plan; evaluation of patient's response to treatment; frequent reassessment; and discussions with other providers. It was exclusive of separately billable procedures and treating other patients and teaching time. Please see Assessment and Plan section and the rest of the note for further information on patient assessment and treatment Program Director Group Work Consult Note Consult date: 03/23/22 Reason for consult: Alcohol withdrawal HPI: Niles Díaz is a 31 year old male with past medical history of alcohol withdrawal syndrome, alcoholism, elevated LFTs, erosive esophagitis, thrombocytopenia with frequent admissions for alcohol intoxication/withdrawal, alcoholic liver disease presented the ED on 03/19 with complains of nausea, abdominal pain, hematemesis. He had noted some Johnson blood in his vomitus a couple of days prior to admission. S alcohol levels were in the 400s, states he drinks about a bottle of vodka every day. Also smokes 2-3 cigarettes a day as well as smokes marijuana. GI was following the patient and presumed the hematemesis was secondary to esophagitis gastritis. EGD was done on 03/21/2022 which showed reflux esophagitis and gastritis. Patient was placed on Protonix IV q.12 hours. On 03/22/2022 CIWA scores were elevated on the medical floor, patient was agitated as he wanted to go home so he was brought down to the ICU for possible Precedex infusion. In the ICU patient's CIWA scores were between 0 to 4. Not requiring any Ativan or Precedex infusion. Patient seen and examined this morning, is awake, alert, oriented, sitting at the edge of the bed and eating his breakfast. Patient has a pleasant personality. Denies any nausea, vomiting, abdominal pain at this time. Denies any hematemesis. He denies any shortness of breath or chest pain. States he would like to go home as he feels he is back to baseline. Patient is making adequate urine, afebrile, hemodynamically stable Review of Systems Review of Systems: All systems reviewed & are unremarkable except as noted in HPI and below [facility] Past Medical History Medical History (Updated 03/22/22 @ 12:13 by Travis Day MD) Alcohol withdrawal syndrome Alcoholism Elevated LFTs Erosive esophagitis Head injury Hypomagnesemia Leukopenia Thrombocytopenia Surgical History Surgical History (
--- NOTE | 2022-03-23 12:14 | PM.DS ---
DS: Admitting Diagnosis Discharge Date March 23, 2022 Admitting Diagnosis GI bleed DS: Discharge Diagnosis Discharge Diagnosis (1) Upper GI bleeding: Code(s): K92.2 - Gastrointestinal hemorrhage, unspecified Status: Acute Assessment and Plan: PPI on discharge. Secondary to erosive esophagitis and gastritis secondary to alcohol abuse. (2) Elevated liver enzymes: Code(s): R74.8 - Abnormal levels of other serum enzymes Status: Acute Assessment and Plan: most likely secondary alcohol abuse and possibly early sign of review of cirrhosis follow up with primary care physician. (3) Dehydration: Code(s): E86.0 - Dehydration Status: Acute Assessment and Plan: secondary to alcohol intake (4) Lactic acidosis: Code(s): E87.2 - Acidosis Status: Acute Assessment and Plan: secondary to alcohol abuse, improved DS: Summary Hospital Course Hospital Course: patient was admitted for upper GI bleed have some emesis with blood. History of alcohol abuse. Had a workup any EGD which showed erosive esophagitis. He will be discharged on PPI. He will need a follow-up with GI. Other past medical history all stable Time Spent with Patient Time attestation: Total time spent providing and/or coordinating discharge services: Exam Narrative: General: Pleasant gentleman in no acute distress HEENT: Pupils equal and reactive, moist oral mucosa Neck: Supple Respiratory: Clear to auscultation bilaterally Cardiac: S1-S2 is normal, regular rate and rhythm Abdomen: Soft, nontender, nondistended, normoactive bowel sounds Extremities: No edema, Neuro: Patient is awake, alert, oriented x3, has a mild tremor in his Skin: Psych: DS: Data Data Completed and Pending Pending studies at discharge: Pending at discharge 03/21/22 15:07 Surgical [PTH] Routine Labs on day of discharge: Labs from last 24 hours 03/23/22 03/23/22 04:28 04:28 WBC 7.5 RBC 4.47 L Hgb 14.8 Hct 41.6 L MCV 93.1 MCH 33.1 MCHC 35.6 RDW 12.3 Plt Count 200 MPV 9.7 Sodium 134 L Potassium 4.6 Chloride 100 Carbon Dioxide 23 Anion Gap 11 BUN 15 Creatinine 0.90 Estim Creat Clear Calc 121 Estimated GFR > 60 Glucose 123 H Calcium 9.8 Phosphorus 4.4 Magnesium 1.6 Total Bilirubin 0.6 AST 94 H ALT 88 H Alkaline Phosphatase 107 Total Protein 9.0 H Albumin 5.0 Preliminary micro results at discharge 03/19/22 05:43 Blood Culture - Preliminary Blood 03/19/22 07:36 Blood Culture - Preliminary Blood Discharge Plan Discharge Attending physician on discharge: Nam Bradley Consulting providers: Jah Prescott ; Travis Day Discharging Clinician: Nam Bradley Patient Disposition: Home, Self-Care Activity: no preference Diet: as tolerated Stand Alone Forms: General Discharge Information Follow-up/Referrals: Travis Day MD [Physician] - Discharge Medications: New pantoprazole 40 mg tablet,delayed release (DR/EC) 40 mg PO QAM 28 Days Qty: 28 0RF Continued levetiracetam 500 mg tablet 500 mg PO BID buspirone 10 mg tablet 10 mg PO TID gabapentin 300 mg capsule 300 mg PO TID folic acid 1 mg tablet 1 mg PO DAILY chlordiazepoxide HCl 25 mg capsule 25 mg PO Q6H PRN (Reason: Alcohol Withdrawal) amitriptyline 50 mg tablet See Rx Instructions .ROUTE .COMPLEX MDD 100 PRN (Reason: Agitation) Rx Instructions: Take 1-2 tablets at bedtime as needed for agitation/anxiety thiamine HCl (vitamin B1) [Vitamin B-1] 100 mg Tablet 100 mg PO QAM Qty: 30 0RF Date of admission: 03/22/22 14:38 Primary Care Provider: Mitchel Garibay Admitting Provider: Tiny Stephens Attending physician on admission: Tiny Stephens Condition: Serious
== END 2022-03-23 12:52 | disposition home or self-care (01) | DRG 381 ==
LOC: ANHED 07:37 → ANHICU 08:09 → ANH3MEDSUR 03-22 01:53 → ANHICU 03-23 12:14 → ANH3MEDSUR 03-24 15:39 → ANHICU 03-24 15:39
PROVIDERS: Family Medicine; Internal Medicine; Internal Medicine Gastroenterology; Admitting Provider Student in an Organized Health Care Education/Training Program; Emergency Provider Emergency Medicine; Visit Provider Chiropractor
PROC: 0DJ08ZZ Inspection of Upper Intestinal Tract, Via Natural or Artificial Opening Endoscopic (ICD-10-PCS; CPT 43235; principal; 2022-03-21 14:15)
DX: K22.11 Ulcer of esophagus with bleeding (principal); E87.2 Acidosis; F10.239 Alcohol dependence with withdrawal, unspecified; F10.229 Alcohol dependence with intoxication, unspecified; K29.21 Alcoholic gastritis with bleeding; Y90.8 Blood alcohol level of 240 mg/100 ml or more; G25.2 Other specified forms of tremor; K70.30 Alcoholic cirrhosis of liver without ascites; Z20.822 Contact with and (suspected) exposure to COVID-19; E86.0 Dehydration; D69.59 Other secondary thrombocytopenia; F17.210 Nicotine dependence, cigarettes, uncomplicated
CPT/HCPCS: 36415; 71045; 74177; 80053; 80307; 81001; 83605; 83690; 83735; 84100; 84484; 85014; 85018; 85025; 85027; 85610; 85730; 86850; 86900; 86901; 87040; 88305; 93005; 96361; 96365; 96366; 96367; 96368; 96372; 96375; 96376; 99285; A9270; C9113; C9803; G0378; J0692; J1200; J2060; J2354; J2405; J2550; J2704; J2765; J3411; J3475; J7030; J7050; J7120; Q9967; U0003; U0005

== ENCOUNTER 2022-04-14 08:41 | Inpatient (IN) | payer BC, SELFPAY ==
[2022-04-14] VITALS (19 sets, daily range): BP systolic 140–155; BP diastolic 88–106; PULSE 62–128; RESP 13–28; TEMP 36.6–37.1; O2SAT 96–100; BMI 25.7
--- NOTE | ~2022-04-14 | US_ITS ---
EXAMINATION: US abdomen limited DATE: 04/15/2022 09:26 INDICATION: Pancreatitis. Elevated liver function tests. TECHNIQUE: Multiple grayscale and Doppler ultrasound images of the abdomen were obtained. COMPARISON: None FINDINGS: The visualized portions of the pancreatic body is normal. The head and tail are obscured. Liver has n ormal contour, with a smooth surface. There is slightly increased parenchymal echogenicity and coarse roldan echotexture consistent with mild diffuse hepatic steatosis. No liver lesion identified. No intra hepatic biliary duct dilation suspected. Portal venous flow was seen in the hepatopetal, normal direc tion and has normal Doppler waveform. The gallbladder is normal in appearance. There is no cholelith iasis. The common bile duct measures 6 mm which is at the upper limits of normal. Sonographic Painting sign was reported as negative by the glass cutting machine feeder.This is portions of the proximal inferior vena cava is normal. IMPRESSION: 1. Mild diffuse hepatic steatosis. 2. Common bile duct at the upper limits of normal with normal gallbladder and no cholelithiasis. Reviewed, dictated and finalized at location A. IMPRESSION: 1. Mild diffuse hepatic steatosis. 2. Common bile duct at the upper limits of normal with normal gallbladder and n o cholelithiasis.
--- NOTE | ~2022-04-14 | CT_ITS ---
EXAMINATION: CT abdomen pelvis w con DATE: 04/14/2022 11:37 INDICATION: Alcohol withdrawal. Nausea. Elevated lipase. TECHNIQUE: Computed tomography (CT) of the abdomen and pelvis was performed with 100 cc Omnipaque 300 intravenous contrast. The dose-length product was 438.02 mGy-cm. Automated exposure control and iter ative reconstruction technique were employed. COMPARISON: CT dated 03/19/2022. FINDINGS: Lung bases unremarkable. Heart size normal. No significant pleural or pericardial effusion. No significant vascular abnormality. Small hiatal hernia. No lymphadenopathy. Fatty infiltration of the liver. Gallbladder is distended. The spleen, adrenal glands and left kidney are unremarkable. Hypodense pancreatic head mass described on prior CT dated 03/19/2022 is not defini tely seen on the current study. Recommend correlation with MRI. There is an umbilical hernia containi ng fat and nonobstructed small bowel. There is diffuse thickening of the colon, consistent with colit is, possibly infectious or inflammatory. No obstruction. No free air or free fluid. IMPRESSION: 1. Abnormal diffuse thickening of the colon, suspicious for colitis, most likely infectious or inflam matory. 2: Hypodense pancreatic head mass not well visualized on the current study. Correlation with MRI wit h contrast recommended. Reviewed, dictated and finalized at location A. IMPRESSION: 1. Abnormal diffuse thickening of the colon, suspicious for colitis, most likel y infectious or inflammatory. 2: Hypodense pancreatic head mass not well visualized on the current study. Co rrelation with MRI with contrast recommended.
--- NOTE | ~2022-04-14 | XR_ITS ---
EXAMINATION: XR chest 1V portable DATE: 04/14/2022 09:50 INDICATION: Chest pain, headache and nausea TECHNIQUE: frontal view of the chest was obtained. COMPARISON: Chest radiograph dated 03/19/2022 FINDINGS: The lungs remain clear with no focal airspace opacities, pulmonary edema, pleural effusion or pneumot horax. The cardiomediastinal silhouette is normal. Mild lumbar levocurvature. IMPRESSION: 1. No acute cardiopulmonary disease. Reviewed, dictated and finalized at location A.
--- NOTE | ~2022-04-14 | MR_ITS ---
EXAMINATION: MR MRCP wo/w con/w 3D wo ind DATE: 04/18/2022 09:43 INDICATION: Abnormal pancreas on CT scan. TECHNIQUE: Magnetic resonance imaging (MRI) of the abdomen was performed without and with 18 mL Multi kalpesh intravenous contrast. Sequences included coronal T2-weighted SS-FSE, coronal T2-weighted FS SS- FSE, coronal T2-weighted FS FIESTA, axial T2-weighted FS FIESTA, axial T2-weighted FIESTA, sagittal T 2-weighted SS-FSE, axial T1-weighted dual-echo FSPGR, axial T2-weighted SS-FSE, axial T1-weighted LAV A, axial T2-weighted STIR FSE. Thick-slab T2-weighted FRFSE-XL images were obtained for magnetic reso nance cholangiopancreatography (MRCP). Rotating maximum intensity projection 3-D reconstructions of t he volumetric data were created by the technologist. Postcontrast sequences included a time course of axial T1-weighted LAVA. COMPARISON: CT dated 04/14/2022 FINDINGS: ABDOMEN MRI: Liver, gallbladder, spleen, bilateral adrenal glands and left kidney are normal. Status post right ne phrectomy. There is negligible soft tissue edema about the head of the pancreas and bakari hepatis wit h mild posterior retroperitoneal edema in the region of the right nephrectomy bed likely related to r eported history of acute interstitial pancreatitis. There are couple small cystic lesions measuring u p to 7 mm in diameter at the head of the pancreas which appear contiguous with the pancreatic ducts m ost likely representing dilated side branches related to acute pancreatitis. There is normal homogene ous parenchymal enhancement of the pancreas with no regions of necrosis or abnormal pancreatic masses . No loculated peripancreatic fluid collections. Visualized portion of the bowels are unremarkable. M agnetic field artifact along a midline abdominal wall surgical scar. Small widemouthed fat-containing umbilical hernia. No pathologically enlarged abdominal lymphadenopathy. ABDOMEN MRCP: No intrahepatic biliary ductal dilation. The common hepatic duct measures up to 5 mm de creasing to 3 mm and the common bile duct which tapers smoothly distally. No filling defects within t he bladder biliary tree to suggest cholelithiasis. IMPRESSION: 1. Mild interstitial and peripancreatic edema and a couple dilated pancreatic ductal side branches at the head of the pancreas consistent with radiograph. Uncomplicated acute interstitial pancreatitis. No evident necrosis or likely peripancreatic fluid collections. Reviewed, dictated and finalized at location A. IMPRESSION: 1. Mild interstitial and peripancreatic edema and a couple dilated pancreatic d uctal side branches at the head of the pancreas consistent with radiograph. Unc omplicated acute interstitial pancreatitis. No evident necrosis or likely perip ancreatic fluid collections.
--- NOTE | 2022-04-14 09:11 | ECG_ITS ---
Measurements Intervals [place] Rate: 108 P: 70 LA: 148 QRS: 34 QRSD: 88 T: 32 QT: 324 QTc: 434 Interpretive Statements SINUS TACHYCARDIA BASELINE ARTIFACT- II, III, AVL, V1 BORDERLINE ECG Electronically Signed On 04-14-2022 9:54:47 CDT by Jonathan Aquino D.O.
[2022-04-14] MEDS: diazePAM INJ (*CRX) 10 MG/2 ML SYRINGE 5 MG IV PUSH ×2 (09:15→11:12)
[2022-04-14] MEDS: LACTATED RINGERS 1,000 ML 999 ML IV CONT ×3 (09:24→13:37)
[2022-04-14] MEDS: ONDANSETRON INJ 4 MG/2 ML VIAL IV PUSH ×3 (09:24→15:13)
[2022-04-14 09:35] LABS: Alveolar/Arterial O2 Gradient 16.1 mmHg; Base Excess ABG -4.5 mEq/l (+/-2.0); Carboxyhemoglobin 0.4 % THb (0-2.0); Fractional Inspired Oxygen 21 %; HCO3 ABG 13.3 mEq/l (22.0-26.0); Methemoglobin ABG 0.3 %THb (0-1.5); Oxygen Content ABG 22.3 %vol (16.0-22.0); Oxygen Saturation ABG 98.9 % (95.0-100.0); Oxyhemoglobin 97.4 % THb (90.0-100.0); PO2 ABG 116.4 mmHg (80.0-100.0); PO2 FiO2 Ratio Arterial Blood 5.54 %; Reduced Hemoglobin 1.9 %THb (0-5.0); Total Hemoglobin 16.2 g/dL (12.0-18.0)
[2022-04-14 09:37] LABS: Device ROOM AIR; Modified Allen's Test Pass; PCO2 ABG 14.4 mmHg (35.0-45.0); Site Drawn RIGHT RADIAL; pH ABG 7.584 (7.350-7.450)
[2022-04-14 09:52] LABS: Glucose Point of Care 105 mg/dl (65-105)
[2022-04-14 09:52] LABS: Basophils Absolute Auto 0.1 K/mm3 (0.0-0.1); Basophils Percent Auto 1.7 % (0.2-1.2); Eosinophils Percent Auto 0.5 % (0-4.4); Hematocrit 43.6 % (42.0-52.0); Immature Granulocyte Absolute 0.02 K/mm3 (0.00-0.031); Immature Granulocyte Percent A 0.3 % (0-0.5); Lymphocytes Absolute Auto 2.63 K/mm3 (0.9-3.2); Lymphocytes Percent Auto 41.4 % (18.3-44.2); Mean Corpuscular HGB Conc 36.7 g/dl (32-36); Mean Corpuscular Hemoglobin 32.4 pg (26-34); Mean Corpuscular Volume 88.3 fl (80-100); Mean Platelet Volume 9.6 fl (7.4-10.4); Monocytes Absolute Auto 0.3 K/mm3 (0.1-0.6); Monocytes Percent Auto 4.9 % (2.6-8.5); Neutrophils Absolute Auto 3.3 K/mm3 (1.3-6.7); Neutrophils Percent Auto 51.2 % (45.5-73.1); Platelet Count Result 261 k/mm3 (150-375); Red Blood Count 4.94 M/mm3 (4.6-6.20); Red Cell Distribution Width 12.4 % (11.5-14.5); White Blood Count 6.4 K/mm3 (4.5-10.0)
[2022-04-14 10:04] LABS: Partial Thromboplastin Time 25.4 SECONDS (22.3-36.8)
[2022-04-14 10:05] LABS: Ammonia < 9 umol/L (9-30); Ethanol 201 mg/dL (<10)
[2022-04-14 10:07] LABS: Alanine Aminotransferase 146 U/L (6-50); Albumin Level 5.3 g/dL (3.5-5.1); Alkaline Phosphatase 107 U/L (38-126); Anion Gap 27 mmol/L (8-16); Aspartate Amino Transferase 186 U/L (17-59); Bilirubin,Total 1.1 mg/dL (0.2-1.3); Blood Urea Nitrogen 17 mg/dL (9-20); Calcium 9.3 mg/dL (8.4-10.2); Carbon Dioxide 9 mmol/L (22-30); Chloride 105 mmol/L (98-107); Creatine Kinase 136 U/L (55-170); Estimated CRCL calculation 84 ml/min; Estimated Glomerular Filt Rate > 60; Glucose 100 mg/dL (65-110); Lipase 576 U/L (23-300); Magnesium 1.5 mg/dL (1.6-2.3); Potassium 3.6 mmol/L (3.4-5.0); Sodium 141 mmol/L (137-145)
[2022-04-14 10:09] LABS: Lactic Acid Reflex 7.5 mmol/L (0.7-2.0)
[2022-04-14] MEDS: THIAMINE HCL INJ 100 MG, FOLIC ACID INJ 1 MG, MULTIVITAMINS-12 INJ VIAL 1 5 ML, MULTIVI... IV CONT (10:12)
[2022-04-14 10:17] LABS: NT Pro B Type Natriuretic Pept 24 pg/mL (5-100); Troponin I < 0.012 ng/mL (0.000-0.034)
[2022-04-14 10:47] LABS: Appearance Urine Clear (Clear); Bilirubin Urine Negative (Negative); Color Urine Yellow (Yellow); Glucose Urine UA Negative (Negative); Ketones Urine Negative (Negative); Leukocyte Esterase Ur Negative LEU/UL (Negative); Nitrate Urine Negative (Negative); Protein Urine 1+ mg/dL (Negative); Specific Grav Ur 1.015 (1.001-1.035); Urobilinogen Urine 0.2 mg/dL (<2.0); pH Urine 6.5 (5.0-9.0)
[2022-04-14 10:49] LABS: Add Urine Microscopic? YES; Blood Urine Trace-Intact (Negative)
[2022-04-14 10:54] LABS: Mucus Urine Rare /lpf; WBC Urine 0-3 /hpf
--- NOTE | 2022-04-14 11:00 | ED.ALCOHOL ---
HPI - Alcohol General Chief Complaint: Alcohol Stated Complaint: Dehydration, Withdraw for Alcohol Time Seen by Provider: 04/14/22 08:47 Source: patient, family, RN notes reviewed and old records reviewed Mode of arrival: ambulatory Limitations: no limitations History of Present Illness HPI narrative: This is a 31 year old male with history of alcoholism and anxiety who presents for evaluation of possible withdrawals. Patient states just prior to arrival, he developed chest pain, hyperventilation, clinching of his hands and numbness to whole body. He reports his last drink was at midnight. He also reports nausea, vomiting and upper abdominal pain. He denies fever, chills or diarrhea. His mother is at bedside and she reports mild cough but negative covid test yesterday. MD complaint: alcohol withdrawal Chronic alcohol use: Yes Previous visits for alcohol intoxication: Yes Associated symptoms: nausea, vomiting and tremors Related Data Home Medications Medication Instructions Recorded Confirmed buspirone 10 mg tablet 10 mg PO TID 01/17/22 04/14/22 chlordiazepoxide HCl 25 mg capsule 25 mg PO Q6H PRN Alcohol Withdrawal 01/17/22 04/14/22 folic acid 1 mg tablet 1 mg PO DAILY 01/17/22 04/14/22 gabapentin 300 mg capsule 300 mg PO TID 01/17/22 04/14/22 levetiracetam 500 mg tablet 500 mg PO BID 01/17/22 04/14/22 amitriptyline 50 mg tablet See Rx Instructions .Route 01/20/22 04/14/22 .COMPLEX PRN Agitation Allergies Allergy/AdvReac Type Severity Reaction Status Date / Time Penicillins Allergy Unknown Hives Verified 04/14/22 08:49 diazepam [From Valium] AdvReac Vomiting Verified 04/14/22 15:57 Review of Systems Review of Systems: All systems reviewed & are unremarkable except as noted in HPI and below Constitutional: Constitutional: Denies chills, Reports fatigue and Denies fever(s) Eyes: Eyes: Denies change in vision Cardiovascular: Cardiovascular: Reports chest pain and Reports rapid heart rate Respiratory: Respiratory: Denies chest congestion and Reports cough Gastrointestinal: Gastrointestinal: Reports abdominal pain, Reports nausea and Reports vomiting Psychiatric: Psychiatric: Reports anxiety PMFSH Past Medical History Medical History Alcohol withdrawal syndrome Alcoholism Elevated LFTs Erosive esophagitis Head injury Hypomagnesemia Leukopenia Thrombocytopenia Surgical History Surgical History History of nephrectomy Family History Family History Father Diabetes mellitus Hypertension Grandparent Family history of cardiovascular disease Social History Social History (Updated 04/14/22 @ 14:56 by JUAN Judd) Social History: 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 Plans are for him to go to rehab, however, according to his mother this will be his 8th time having problems with ETOH W/D. They are planning for him to go to rehab upon discharge. His mother Molly will be his surrogate, and he wishes to be a full code. 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
[2022-04-14 11:03] LABS: Amphetamine Screen Urine Negative (Negative); Barbiturate Screen Urine Negative (Negative); Benzodiazepines Screen Urine Positive (Negative); Cannabinoid Screen Urine Positive (Negative); Cocaine Screen Urine Negative (Negative); Methadone Screen Urine Negative (Negative); Opiate Screen Urine Negative (Negative); Phencyclidine Screen Urine Negative (Negative)
[2022-04-14] MEDS: PANTOPRAZOLE SODIUM IV 40 MG VIAL IV PUSH ×2 (11:11→20:17)
[2022-04-14 12:51] LABS: Reflex Lactic Acid Yes or No Add Lactic
--- NOTE | 2022-04-14 13:06 | PM.IMHP ---
H&P: HPI History of Present Illness Date/Time: 04/14/22 13:06 Chief Complaint: ETOH Withdrawal symptoms including nausea, vomiting, dry heaves, sweats Narrative: Patient is a 31-year-old male with a past medical history of anxiety, alcohol abuse, nephrectomy who presented to the ED with symptoms of alcohol withdrawal. Patient's last drink was last night at midnight. Patient comes about a 5th of vodka a day. He has been having nausea, vomiting, dry heaves, abdominal pain, sweats. He also stated that he is having sternal chest pain and extreme shortness of breath. He denies any diarrhea or constipation. He did have abdominal pain upon palpation of the left upper and lower quadrant. He stated that he has been doing okay since. His mother was also present. CIWA was personally obtained and patient was noted to be a 53. He is currently complaining of severe anxiety, with hallucination, numbness and tingling in the fingers and toes, hair is drenched heart rate is in the 100s, BP is 155/88, he is sitting on the edge of the stretcher, looking like he wants to run a marathon, talking very fast, seeing things. He was given 2mg IV Ativan x 1. He was rechecked shortly after the ativan was given and he did seems a bit better. Dr. López was consulted from ICU, and plan of care was talked about. One additional bag of fluids was given. CT of the abdomen does raise concern from colitis. Antibiotics have been started. Lactic is also elevated at 7.5, and is currently trending down and is now at 6.4. IV antibiotics have been started and blood cultures have been drawn. Patient is being admitted to the hospialist service under observation to the ICU. 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 Plans are for him to go to rehab, however, according to his mother this will be his 8th time having problems with ETOH W/D. They are planning for him to go to rehab upon discharge. His mother Molly will be his surrogate, and he wishes to be a full code. 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
[2022-04-14] MEDS: LORazepam INJ (*CRX) 2 MG/ML VIAL IV PUSH ×3 (13:14→20:23)
[2022-04-14] MEDS: PROMETHAZINE HCL 25 MG/ML AMPUL 12.5 MG IV PUSH (13:18)
[2022-04-14 13:32] LABS: Lactic Acid Reflex 6.4 mmol/L (0.7-2.0)
[2022-04-14 13:39] LABS: SARS-CoV-2 RNA PCR Negative
--- NOTE | 2022-04-14 14:39 | PC.NURSE ---
RN REPORT GIVEN TO [facility]. PT TRANSPORTED WITH [address], IVF INFUSING AT TIME OF TRANSFER.
--- NOTE | 2022-04-14 14:51 | ADMGEN ---
This patient, Niles Díaz, was admitted to Intensive Care Unit-2. Patient/family oriented to hospital policies and general routines including ID bracelet, bed and alarms, visiting hours, pain management, procedures, bathroom and other care routines, personal items, smoking policy, room service/diet, and visiting hours. Information on how to activate the Rapid Response Team has been discussed. Patient/Family are encouraged to report perceived risks to care and to ask questions if they do not understand what they are told or what they should do.
[2022-04-14] MEDS: dexmedeTOMIDine 400 MCG/100 ML 400 MCG/100 ML BAG IV CONT (15:00)
--- NOTE | 2022-04-14 15:00 | WPDCNINT ---
Assessment and Plan Assessment and plan (1) Alcohol intoxication: Code(s): F10.929 - Alcohol use, unspecified with intoxication, unspecified Status: Acute Assessment and Plan: Patient presented with symptoms of alcohol intoxication, dehydration, possible pancreatitis with elevated lipase and LFTs -Continue diazepam, Precedex infusion -[facility] protocol in place -patient receiving banana bag with thiamine, folic acid and multivitamin -continue Librium -diazepam p.r.n. (2) Lactic acidosis: Code(s): E87.2 - Acidosis Status: Acute Assessment and Plan: Lactic acidosis secondary to dehydration, alcohol intoxication and poor clearance due to impaired liver function -continue maintenance IV fluids -continue to monitor levels (3) Dehydration: Code(s): E86.0 - Dehydration Status: Acute Assessment and Plan: Elevated lactic acid, likely related to decreased clearance, alcohol intoxication, alcohol ketoacidosis -patient complaining of nausea and vomiting -continue maintenance IV fluids (4) Elevated liver enzymes: Code(s): R74.8 - Abnormal levels of other serum enzymes Status: Acute Assessment and Plan: Elevated liver enzymes likely related to alcohol intake, hepatic steatosis on the last CT scan -continue to monitor levels (5) Abdominal pain: Code(s): R10.9 - Unspecified abdominal pain Status: Acute Assessment and Plan: Abdominal pain could be related to pancreatitis, colitis as seen on CT scan of the abdomen and pelvis done in the ER on 04/14/2022 -continue IV fluids -patient started on ciprofloxacin and metronidazole as he is allergic to penicillin -lactic acid could be related to colitis, will continue to monitor (6) Colitis: Code(s): K52.9 - Noninfective gastroenteritis and colitis, unspecified Status: Acute Assessment and Plan: As above (7) Hypomagnesemia: Code(s): E83.42 - Hypomagnesemia Status: Acute Assessment and Plan: Will replace magnesium (8) Pancreatitis: Code(s): K85.90 - Acute pancreatitis without necrosis or infection, unspecified Status: Acute Assessment and Plan: Elevated lipase and LFTs, could be related to possible pancreatitis -continue IV fluids -NPO except ice chips and sips of water -will monitor lipase LFTs -continue antiemetics 04/14/2022 CT scan of the abdomen and pelvis: 1. Abnormal diffuse thickening of the colon, suspicious for colitis, most likely infectious or inflammatory. 2:? Hypodense pancreatic head mass not well visualized on the current study. Correlation with MRI with contrast recommended. Plan Repeat lactic acid and lipase later this evening Continue maintenance IV fluids Replace potassium Continue Librium and Precedex CIWA protocol Additional Plan Discussed with patient updated with his condition and plan of care Code status: Full code Critical care time spent: 42 minutes This dictation may have been done utilizing a voice recognition system. Attempts have been made to correct errors. However, there may be uncorrected grammatical, spelling, and recognition errors present. Due to a high probability of clinically significant, life threatening deterioration, the patient required my highest level of preparedness to intervene emergently and I personally spent this critical care time directly and personally managing the patient. This critical care time included obtaining a history; examining the patient; pulse oximetry; ordering and review of studies; arranging urgent treatment with development of a management plan; evaluation of patient's response to treatment; frequent reassessment; and discussions with other providers. It was exclusive of separately billable procedures and treating other patients and teaching time. Please see Assessment and Plan section and the rest of the note for further information on patient assessment and treatment In
[2022-04-14] MEDS: SODIUM CHLORIDE 0.9% IV 1,000 ML 125 ML IV CONT (15:14)
[2022-04-14] MEDS: metroNIDAZOLE 500 MG/ISO 100ML 500 MG/100 ML BAG 100 MG IVPB (15:22)
[2022-04-14] MEDS: ACETAMINOPHEN 325 MG TABLET 650 MG PO ×2 (16:06→22:15)
[2022-04-14] MEDS: MAGNESIUM SULF 4 GM/WATER100ML 4 GM/100 ML BAG IVPB (16:12)
[2022-04-14] MEDS: chlordiazePOXIDE (*CRX) 25 MG CAPSULE 50 MG PO (17:26)
[2022-04-14 18:20] LABS: Lactic Acid Reflex 0.9 mmol/L (0.7-2.0); Lipase 691 U/L (23-300)
[2022-04-14] MEDS: CIPROFLOXACIN 400 MG/D5W 200ML 200 ML 200 MG IVPB (20:14)
[2022-04-14] MEDS: dexmedeTOMIDine 400 MCG/100 ML 400 MCG/100 ML BAG 16.2 MCG IV CONT (22:11)
[2022-04-15] VITALS (31 sets, daily range): BP systolic 130–161; BP diastolic 88–115; PULSE 45–71; RESP 13–22; TEMP 36.5–36.6; O2SAT 95–100; BMI 25.7
[2022-04-15] MEDS: chlordiazePOXIDE (*CRX) 25 MG CAPSULE 50 MG PO ×5 (00:18→23:48)
[2022-04-15] MEDS: LORazepam INJ (*CRX) 2 MG/ML VIAL IV PUSH ×6 (00:18→20:51)
[2022-04-15] MEDS: SODIUM CHLORIDE 0.9% IV 1,000 ML 125 ML IV CONT ×2 (00:18→07:51)
[2022-04-15 00:29] LABS: Glucose Point of Care 101 mg/dl (65-105)
[2022-04-15] MEDS: CIPROFLOXACIN 400 MG/D5W 200ML 200 ML 200 MG IVPB ×2 (03:47→14:38)
[2022-04-15] MEDS: dexmedeTOMIDine 400 MCG/100 ML 400 MCG/100 ML BAG 16.2 MCG IV CONT ×4 (03:47→20:03)
[2022-04-15] MEDS: ACETAMINOPHEN 325 MG TABLET 650 MG PO ×3 (03:49→23:54)
[2022-04-15 04:33] LABS: Alanine Aminotransferase 105 U/L (6-50); Alkaline Phosphatase 71 U/L (38-126); Anion Gap 11 mmol/L (8-16); Aspartate Amino Transferase 116 U/L (17-59); Bilirubin,Total 1.9 mg/dL (0.2-1.3); Blood Urea Nitrogen 8 mg/dL (9-20); Calcium 8.4 mg/dL (8.4-10.2); Carbon Dioxide 20 mmol/L (22-30); Chloride 103 mmol/L (98-107); Estimated CRCL calculation 121 ml/min; Estimated Glomerular Filt Rate > 60; Glucose 106 mg/dL (65-110); Lipase 1049 U/L (23-300); Phosphorus 2.8 mg/dL (2.5-4.5); Potassium 3.1 mmol/L (3.4-5.0); Sodium 134 mmol/L (137-145)
[2022-04-15 05:19] LABS: Hepatitis B Surface Antigen Negative (Negative)
[2022-04-15 05:24] LABS: HAV RESULT Negative (Negative); Hepatitis B Core IgM Result Negative (Negative)
[2022-04-15 05:36] LABS: Hepatitis C Virus Antibody Negative (Negative)
[2022-04-15] MEDS: metroNIDAZOLE 500 MG/ISO 100ML 500 MG/100 ML BAG 100 MG IVPB ×3 (05:37→20:56)
[2022-04-15 06:45] LABS: Basophils Percent Auto 0.4 % (0.2-1.2); Eosinophils Absolute Auto 0.1 K/mm3 (0-0.3); Eosinophils Percent Auto 2.2 % (0-4.4); Hematocrit 37.1 % (42.0-52.0); Hemoglobin 13.2 g/dL (14.0-18.0); Immature Granulocyte Absolute 0.01 K/mm3 (0.00-0.031); Immature Granulocyte Percent A 0.2 % (0-0.5); Lymphocytes Absolute Auto 1.77 K/mm3 (0.9-3.2); Lymphocytes Percent Auto 34.7 % (18.3-44.2); Mean Corpuscular HGB Conc 35.6 g/dl (32-36); Mean Corpuscular Volume 89.8 fl (80-100); Mean Platelet Volume 9.8 fl (7.4-10.4); Monocytes Absolute Auto 0.5 K/mm3 (0.1-0.6); Monocytes Percent Auto 8.8 % (2.6-8.5); Neutrophils Absolute Auto 2.7 K/mm3 (1.3-6.7); Neutrophils Percent Auto 53.7 % (45.5-73.1); Platelet Count Result 146 k/mm3 (150-375); Red Blood Count 4.13 M/mm3 (4.6-6.20); Red Cell Distribution Width 11.9 % (11.5-14.5); White Blood Count 5.1 K/mm3 (4.5-10.0)
[2022-04-15] MEDS: POTASSIUM CHLORIDE 20 MEQ TABLET 40 MEQ PO (07:52)
[2022-04-15] MEDS: LACTATED RINGERS 1,000 ML 999 ML IV CONT (07:52)
[2022-04-15] MEDS: FOLIC ACID 1 MG TABLET PO (07:53)
[2022-04-15] MEDS: THIAMINE HCL 200 MG/2 ML VIAL 100 MG IV PUSH (07:53)
[2022-04-15] MEDS: ENOXAPARIN 40 MG/0.4 ML SYRINGE SUB-Q (07:53)
[2022-04-15] MEDS: PANTOPRAZOLE SODIUM IV 40 MG VIAL IV PUSH ×2 (07:53→20:51)
--- NOTE | 2022-04-15 08:24 | WPDINTPN ---
Progress Note: A&P Assessment and Plan (1) Alcohol intoxication: Code(s): F10.929 - Alcohol use, unspecified with intoxication, unspecified Status: Acute Assessment and Plan: Patient presented with symptoms of alcohol intoxication, dehydration, possible pancreatitis with elevated lipase and LFTs -Continue p.r.n. Ativan and Precedex infusion -WA protocol in place -continue folic acid and thiamine -continue Librium q.6 hours (2) Lactic acidosis: Code(s): E87.2 - Acidosis Status: Acute Assessment and Plan: RESOLVED Lactic acidosis secondary to dehydration, alcohol intoxication and poor clearance due to impaired liver function -continue maintenance IV fluids -continue to monitor levels (3) Dehydration: Code(s): E86.0 - Dehydration Status: Acute Assessment and Plan: Elevated lactic acid, likely related to decreased clearance, alcohol intoxication, alcohol ketoacidosis -patient complaining of nausea and vomiting -continue maintenance IV fluids (4) Pancreatitis: Code(s): K85.90 - Acute pancreatitis without necrosis or infection, unspecified Status: Acute Assessment and Plan: Elevated lipase and LFTs, could be related pancreatitis -will increase maintenance IV fluids and given additional bolus of IV fluids this morning -NPO except ice chips and sips of water with medications -will monitor lipase and LFTs -continue antiemetics -consult GI -Check triglyceride level -check right upper quadrant ultrasound to rule out gallstones 04/14/2022 CT scan of the abdomen and pelvis: 1. Abnormal diffuse thickening of the colon, suspicious for colitis, most likely infectious or inflammatory. 2:? Hypodense pancreatic head mass not well visualized on the current study. Correlation with MRI with contrast recommended. (5) Elevated liver enzymes: Code(s): R74.8 - Abnormal levels of other serum enzymes Status: Acute Assessment and Plan: Elevated liver enzymes likely related to alcohol intake, hepatic steatosis on the last CT scan -LFTs trending down -continue to monitor (6) Abdominal pain: Code(s): R10.9 - Unspecified abdominal pain Status: Acute Assessment and Plan: Abdominal pain could be related to pancreatitis, colitis as seen on CT scan of the abdomen and pelvis done in the ER on 04/14/2022 -continue maintenance IV fluids -patient started on ciprofloxacin and metronidazole as he is allergic to penicillin -lactic acid could be related to colitis, will continue to monitor -lactic acid has resolved, patient denies any abdominal pain at this time -continue to monitor (7) Colitis: Code(s): K52.9 - Noninfective gastroenteritis and colitis, unspecified Status: Acute Assessment and Plan: As above (8) Electrolyte abnormality: Code(s): E87.8 - Other disorders of electrolyte and fluid balance, not elsewhere classified Status: Acute Assessment and Plan: Replace potassium Plan Increase maintenance IV fluids Give additional IV fluid bolus Continue Precedex and Librium Replace potassium GI consulted Check triglycerides and right upper quadrant ultrasound Additional Plan Discussed with patient and I did updated him regarding his elevation of his lipase levels, I did tell him that he will remain NPO except ice chips and sips of water to which she is agreeable Code status: Full code Critical care time spent: 34 minutes This dictation may have been done utilizing a voice recognition system. Attempts have been made to correct errors. However, there may be uncorrected grammatical, spelling, and recognition errors present. Due to a high probability of clinically significant, life threatening deterioration, the patient required my highest level of preparedness to intervene emergently and I personally spent this critical care time directly and personally managing the patient. This critical care time
[2022-04-15 09:41] LABS: Triglycerides 749 mg/dL (<150)
--- NOTE | 2022-04-15 12:58 | PCNSR ---
On 04/15/22, the student,Angi De Oliveira, provided care and completed [facility] documentation on this patient. I have reviewed the student's documentation and agree with the findings.
--- NOTE | 2022-04-15 13:18 | WPDGICN ---
Assessment and Plan Assessment and plan (1) Pancreatitis: Code(s): K85.90 - Acute pancreatitis without necrosis or infection, unspecified Status: Acute Assessment and Plan: lipase was elevated, 691 on admission, now 1049. It was slightly elevated a few months ago but in between had been normal when hospitalized recently. He does not believe that he has had pancreatitis in the past. (2) Transaminitis: Code(s): R74.01 - Elevation of levels of liver transaminase levels Status: Acute Assessment and Plan: Likely secondary to alcohol abuse (3) Alcohol abuse with withdrawal: Code(s): F10.139 - Alcohol abuse with withdrawal, unspecified Status: Acute Assessment and Plan: he has had previous admissions for alcohol withdrawal syndrome. Obviously he has not been able to refrain from drinking alcohol, despite the fact that he states he has been told how dangerous it is in his situation (4) Pancreatic mass: Code(s): K86.89 - Other specified diseases of pancreas Status: Acute Assessment and Plan: this may be a mass or could be localized phlegmon from pancreatitis. In a week or 2 we will follow up with MRI or other study. (5) Erosive esophagitis: Code(s): K22.10 - Ulcer of esophagus without bleeding Status: Acute Assessment and Plan: He is on pantoprazole. Denies heartburn at this time (6) Colitis: Code(s): K52.9 - Noninfective gastroenteritis and colitis, unspecified Status: Acute Assessment and Plan: CT report indicates: IMPRESSION: 1. Abnormal diffuse thickening of the colon, suspicious for colitis, most likely infectious or inflammatory. 2:? Hypodense pancreatic head mass not well visualized on the current study. Correlation with MRI with contrast recommended. he will at some point require colonoscopy. Plan We will slowly advance his diet as tolerated beginning with sips of water and liquids today. Additional Plan I have discussed this case with the photographer lithographic. We are in agreement with plan of care. GI Consult Note Consult date/time: 04/15/22 13:18 HPI: Niles Díaz is a 31 year old male who admits to drinking a 5th of alcohol day comes emergency room with vomiting and dry heaves. Shortly after admission he began hallucinating. He had CIWA score of 53. He was having abdominal pain, sweating, chest pain and was short of breath. He had numbness and tingling in his fingers and he had tachycardia. He has been sedated with Ativan and other medications. He at this time is calm and lucid and able to communicate with me. He states that he has had 2 hospitalizations previously for alcohol withdrawal, 1 here and 1 at [facility]. He does not believe that he has had pancreatitis in the past. He had some hematemesis and was hospitalized here just a few weeks ago. EGD was done by Dr. Villalobos which revealed erosive esophagitis. He states that he is not having much pain now. He has been started on antibiotics and rehydrated. He has been given a banana bag he is also getting thiamine and folic acid supplements. He has been started on Cipro and Flagyl for possible sepsis. His liver enzymes are elevated, AST 186 and ALT 146 both higher than usual. He denies any prior history of liver disease or hepatitis Review of Systems Review of Systems: All systems reviewed & are unremarkable except as noted in HPI and below PMFSH Past Medical History Medical History Alcohol withdrawal syndrome Alcoholism Elevated LFTs Erosive esophagitis Head injury Hypomagnesemia Leukopenia Thrombocytopenia Surgical History Surgical History History of nephrectomy Family History Family History Father Diabetes mellitus Hypertension Grandparent Family histor
[2022-04-15] MEDS: SODIUM CHLORIDE 0.9% IV 1,000 ML 150 ML IV CONT ×2 (14:03→22:12)
[2022-04-15] MEDS: levETIRAcetam 500 MG TABLET PO (20:52)
[2022-04-15] MEDS: GABAPENTIN 300 MG CAPSULE PO (20:59)
[2022-04-15] MEDS: busPIRone HCL 10 MG TABLET PO (21:00)
[2022-04-15] MEDS: AMITRIPTYLINE HCL 25 MG TABLET 100 MG PO (21:36)
[2022-04-16] VITALS (23 sets, daily range): BP systolic 103–163; BP diastolic 60–112; PULSE 45–110; RESP 14–20; TEMP 36.1–36.8; O2SAT 94–100
[2022-04-16] MEDS: dexmedeTOMIDine 400 MCG/100 ML 400 MCG/100 ML BAG 16.2 MCG IV CONT ×2 (01:59→06:53)
[2022-04-16] MEDS: LORazepam INJ (*CRX) 2 MG/ML VIAL IV PUSH ×5 (01:59→20:51)
[2022-04-16] MEDS: CIPROFLOXACIN 400 MG/D5W 200ML 200 ML 200 MG IVPB ×2 (02:02→15:28)
[2022-04-16 04:30] LABS: Basophils Percent Auto 0.5 % (0.2-1.2); Eosinophils Absolute Auto 0.3 K/mm3 (0-0.3); Eosinophils Percent Auto 6.1 % (0-4.4); Hematocrit 36.8 % (42.0-52.0); Hemoglobin 13.7 g/dL (14.0-18.0); Immature Granulocyte Absolute 0.01 K/mm3 (0.00-0.031); Immature Granulocyte Percent A 0.2 % (0-0.5); Immature Platelet Fraction Pct 6.2 % (0.9-11.2); Lymphocytes Absolute Auto 1.49 K/mm3 (0.9-3.2); Lymphocytes Percent Auto 33.9 % (18.3-44.2); Mean Corpuscular HGB Conc 37.2 g/dl (32-36); Mean Corpuscular Hemoglobin 32.5 pg (26-34); Mean Corpuscular Volume 87.2 fl (80-100); Mean Platelet Volume 9.9 fl (7.4-10.4); Monocytes Absolute Auto 0.5 K/mm3 (0.1-0.6); Monocytes Percent Auto 10.7 % (2.6-8.5); Neutrophils Absolute Auto 2.1 K/mm3 (1.3-6.7); Neutrophils Percent Auto 48.6 % (45.5-73.1); Platelet Count Result 122 k/mm3 (150-375); Red Blood Count 4.22 M/mm3 (4.6-6.20); Red Cell Distribution Width 11.9 % (11.5-14.5); White Blood Count 4.4 K/mm3 (4.5-10.0)
[2022-04-16 04:39] LABS: Prothrombin Time 13.2 Seconds (11.1-14.7)
[2022-04-16 04:40] LABS: Partial Thromboplastin Time 31.7 SECONDS (22.3-36.8)
[2022-04-16 04:44] LABS: Alanine Aminotransferase 79 U/L (6-50); Albumin Level 3.9 g/dL (3.5-5.1); Alkaline Phosphatase 73 U/L (38-126); Anion Gap 11 mmol/L (8-16); Aspartate Amino Transferase 75 U/L (17-59); Blood Urea Nitrogen 6 mg/dL (9-20); Calcium 8.8 mg/dL (8.4-10.2); Carbon Dioxide 20 mmol/L (22-30); Chloride 105 mmol/L (98-107); Estimated CRCL calculation 121 ml/min; Estimated Glomerular Filt Rate > 60; Glucose 70 mg/dL (65-110); Lipase 1384 U/L (23-300); Magnesium 1.6 mg/dL (1.6-2.3); Phosphorus 2.7 mg/dL (2.5-4.5); Potassium 3.7 mmol/L (3.4-5.0); Sodium 136 mmol/L (137-145)
[2022-04-16 05:06] LABS: Triglycerides 597 mg/dL (<150)
[2022-04-16] MEDS: chlordiazePOXIDE (*CRX) 25 MG CAPSULE 50 MG PO ×4 (05:35→23:44)
[2022-04-16] MEDS: metroNIDAZOLE 500 MG/ISO 100ML 500 MG/100 ML BAG 100 MG IVPB ×2 (05:40→13:54)
[2022-04-16] MEDS: SODIUM CHLORIDE 0.9% IV 1,000 ML 150 ML IV CONT ×3 (06:55→22:38)
[2022-04-16] MEDS: GABAPENTIN 300 MG CAPSULE PO ×3 (08:22→17:29)
[2022-04-16] MEDS: PANTOPRAZOLE SODIUM IV 40 MG VIAL IV PUSH ×2 (08:22→20:43)
[2022-04-16] MEDS: THIAMINE HCL 200 MG/2 ML VIAL 100 MG IV PUSH (08:22)
[2022-04-16] MEDS: levETIRAcetam 500 MG TABLET PO ×2 (08:22→20:43)
[2022-04-16] MEDS: ENOXAPARIN 40 MG/0.4 ML SYRINGE SUB-Q (08:23)
[2022-04-16] MEDS: FOLIC ACID 1 MG TABLET PO (08:23)
[2022-04-16] MEDS: busPIRone HCL 10 MG TABLET PO ×3 (08:23→17:30)
[2022-04-16] MEDS: ACETAMINOPHEN 325 MG TABLET 650 MG PO ×2 (09:50→17:55)
--- NOTE | 2022-04-16 10:03 | WPDGIPROGNO ---
Progress Note: A&P Assessment and Plan (1) Pancreatitis: Code(s): K85.90 - Acute pancreatitis without necrosis or infection, unspecified Status: Acute Assessment and Plan: lipase was elevated, 691 on admission, now 1049. It was slightly elevated a few months ago but in between had been normal when hospitalized recently. He does not believe that he has had pancreatitis in the past. 04/16/2020 to today lipase is higher, over 1300 but he is not having any abdominal pain. (2) Transaminitis: Code(s): R74.01 - Elevation of levels of liver transaminase levels Status: Acute Assessment and Plan: Likely secondary to alcohol abuse 04/16/2022 transaminases are lower today, 75 and 79 respectively for the AST and ALT. Bilirubin also is normal now (3) Alcohol abuse with withdrawal: Code(s): F10.139 - Alcohol abuse with withdrawal, unspecified Status: Acute Assessment and Plan: he has had previous admissions for alcohol withdrawal syndrome. Obviously he has not been able to refrain from drinking alcohol, despite the fact that he states he has been told how dangerous it is in his situation (4) Pancreatic mass: Code(s): K86.89 - Other specified diseases of pancreas Status: Acute Assessment and Plan: this may be a mass or could be localized phlegmon from pancreatitis. We will obtain MRCP on Monday (5) Erosive esophagitis: Code(s): K22.10 - Ulcer of esophagus without bleeding Status: Acute Assessment and Plan: He is on pantoprazole. Denies heartburn at this time (6) Colitis: Code(s): K52.9 - Noninfective gastroenteritis and colitis, unspecified Status: Acute Assessment and Plan: CT report indicates: IMPRESSION: 1. Abnormal diffuse thickening of the colon, suspicious for colitis, most likely infectious or inflammatory. 2:? Hypodense pancreatic head mass not well visualized on the current study. Correlation with MRI with contrast recommended. he will at some point require colonoscopy. Plan We will slowly advance his diet as tolerated beginning with sips of water and liquids today. Additional Plan I have discussed this case with the distribution manager. We are in agreement with plan of care. although his lipase is a bit higher, clinically he is doing well and we will therefore advance his diet. I will start him on Creon Subjective Date/time seen: 04/16/22 10:03 he is drowsy today. He denies any abdominal pain. Denies nausea or vomiting and is eager to eat. He has been tolerating liquids. Lipase is a bit higher Exam Const: General: alert Orientation/consciousness: patient oriented x3 Eyes: Sclera: sclerae normal Resp: Auscultation: clear to auscultation bilaterally Cardio: Rhythm: regular rhythm GI: Auscultation: normal bowel sounds Neuro: General: patient oriented x3 Motor exam (neuro): No Asterixis during motor activity present Objective Data Vital Signs Vital Signs: Vital Signs - 24 hr 04/15/22 10:40 04/15/22 11:18 04/15/22 11:48 Temperature Pulse Rate 51 L Pulse Rate [Monitor] 51 L Respiratory Rate 15 Blood Pressure Pulse Oximetry 96 98 Oxygen Delivery Room Air Room Air 04/15/22 11:53 04/15/22 12:00 04/15/22 12:00 Temperature 36.6 C Pulse Rate 48 L 46 L 50 L Pulse Rate [Monitor] Respiratory Rate 17 15 Blood Pressure 141/111 H Pulse Oximetry 96 Oxygen Delivery 04/15/22 14:00 04/15/22 14:00 04/15/22 14:37 Temperature Pulse Rate 48 L 60 63 Pulse Rate [Monitor] Respiratory Rate 22 H 16 Blood Pressure 141/106 H Pulse Oximetry 98 Oxygen Delivery 04/15/22 15:16 04/15/22 15:16 04/15/22 15:22 Temperature Pulse Rate 61 61 50 L Pulse Rate [Monitor] Respiratory Rate 15 15 14 Blood Pressure Pulse Oximetry 96 Oxygen Delivery Room Air 04/15/22 16:05 04/15/22 16:06 04/15/22 16:00 Temperature 36.5 C Pulse Rate 52
--- NOTE | 2022-04-16 12:15 | PM.IMPN ---
Progress Note: A&P Assessment and Plan (1) Alcohol intoxication: Code(s): F10.929 - Alcohol use, unspecified with intoxication, unspecified Status: Acute Assessment and Plan: alcohol withdrawal currently being treated with Librium 50 mg every 6 hours, Ativan as needed per CIWA and attempting to wean the Precedex infusion (2) Lactic acidosis: Code(s): E87.2 - Acidosis Status: Acute Assessment and Plan: resolved (3) Dehydration: Code(s): E86.0 - Dehydration Status: Acute Assessment and Plan: resolved, continue IV fluids as patient's diet increases (4) Pancreatitis: Code(s): K85.90 - Acute pancreatitis without necrosis or infection, unspecified Status: Acute Assessment and Plan: improving, advanced diet as tolerated (5) Elevated liver enzymes: Code(s): R74.8 - Abnormal levels of other serum enzymes Status: Acute Assessment and Plan: improving, continue to monitor (6) Abdominal pain: Code(s): R10.9 - Unspecified abdominal pain Status: Acute Assessment and Plan: improving, continue Cipro Flagyl (7) Colitis: Code(s): K52.9 - Noninfective gastroenteritis and colitis, unspecified Status: Acute Assessment and Plan: As above (8) Electrolyte abnormality: Code(s): E87.8 - Other disorders of electrolyte and fluid balance, not elsewhere classified Status: Acute Assessment and Plan: Replace potassium Plan Increase maintenance IV fluids Give additional IV fluid bolus Continue Precedex and Librium Replace potassium GI consulted Check triglycerides and right upper quadrant ultrasound Additional Plan full codet Subjective Date/time seen: 04/16/22 12:15 Interval history: Patient resting in bed comfortably. He is somewhat somnolent, but easily arousable and eager to restart a diet today. ? No overnight events noted.? No chest pain or shortness of breath.? No nausea, vomiting or diarrhea.? No fevers or chills. Review of Systems Review of Systems: ? 12 point review of systems was assessed and was negative except as noted in the HPI Exam Narrative: General:??No acute distress, alert and oriented per baseline HEENT:? Atraumatic, normocephalic, mucous membranes moist CV:? Regular rate and rhythm, S1, S2 Lungs:? Clear to auscultation bilaterally, no rales or crackles noted, no wheezes, good air entry Abdomen:? Soft, nontender, nondistended Extremities:? Normal to inspection Skin:? No rashes noted, no lesions or wounds seen Psych:? Euthymic, normal affect Objective Data Vital Signs Vital Signs: Vital Signs - 24 hr 04/15/22 14:00 04/15/22 14:00 04/15/22 14:37 Temperature Pulse Rate 48 L 60 63 Pulse Rate [Monitor] Respiratory Rate 22 H 16 Blood Pressure 141/106 H Pulse Oximetry 98 Oxygen Delivery 04/15/22 15:16 04/15/22 15:16 04/15/22 15:22 Temperature Pulse Rate 61 61 50 L Pulse Rate [Monitor] Respiratory Rate 15 15 14 Blood Pressure Pulse Oximetry 96 Oxygen Delivery Room Air 04/15/22 16:05 04/15/22 16:06 04/15/22 16:00 Temperature 97.7 F Pulse Rate 52 L 51 L Pulse Rate [Monitor] 52 L Respiratory Rate 17 Blood Pressure 161/112 H Pulse Oximetry 99 Oxygen Delivery 04/15/22 17:55 04/15/22 18:00 04/15/22 20:00 Temperature 97.9 F Pulse Rate 52 L 55 L 57 L Pulse Rate [Monitor] Respiratory Rate 17 16 Blood Pressure 143/108 H 150/115 H Pulse Oximetry 100 100 Oxygen Delivery 04/15/22 20:03 04/15/22 20:00 04/15/22 20:00 Temperature Pulse Rate 54 L 63 Pulse Rate [Monitor] Respiratory Rate 16 Blood Pressure Pulse Oximetry Oxygen Delivery Room Air 04/15/22 20:58 04/15/22 22:00 04/15/22 22:00 Temperature Pulse Rate 55 L 52 L 52 L Pulse Rate [Monitor] Respiratory Rate 18 16 Blood Pressure 147/110 H Pulse Oximetry 96 Oxygen Delivery
--- NOTE | 2022-04-16 12:24 | WPDINTPN ---
Progress Note: A&P Assessment and Plan (1) Alcohol intoxication: Code(s): F10.929 - Alcohol use, unspecified with intoxication, unspecified Status: Acute Assessment and Plan: Patient presented with symptoms of alcohol intoxication, dehydration, possible pancreatitis with elevated lipase and LFTs -Continue p.r.n. Ativan and Precedex infusion -WA protocol in place -continue folic acid and thiamine -continue Librium q.6 hours (2) Lactic acidosis: Code(s): E87.2 - Acidosis Status: Acute Assessment and Plan: RESOLVED Lactic acidosis secondary to dehydration, alcohol intoxication and poor clearance due to impaired liver function -continue maintenance IV fluids -continue to monitor levels (3) Dehydration: Code(s): E86.0 - Dehydration Status: Acute Assessment and Plan: Elevated lactic acid, likely related to decreased clearance, alcohol intoxication, alcohol ketoacidosis -patient complaining of nausea and vomiting -continue maintenance IV fluids (4) Pancreatitis: Code(s): K85.90 - Acute pancreatitis without necrosis or infection, unspecified Status: Acute Assessment and Plan: Elevated lipase and LFTs, could be related pancreatitis -will increase maintenance IV fluids and given additional bolus of IV fluids this morning -NPO except ice chips and sips of water with medications -will monitor lipase and LFTs -continue antiemetics -consult GI -Check triglyceride level -check right upper quadrant ultrasound to rule out gallstones 04/14/2022 CT scan of the abdomen and pelvis: 1. Abnormal diffuse thickening of the colon, suspicious for colitis, most likely infectious or inflammatory. 2:? Hypodense pancreatic head mass not well visualized on the current study. Correlation with MRI with contrast recommended. (5) Elevated liver enzymes: Code(s): R74.8 - Abnormal levels of other serum enzymes Status: Acute Assessment and Plan: Elevated liver enzymes likely related to alcohol intake, hepatic steatosis on the last CT scan -LFTs trending down -continue to monitor (6) Abdominal pain: Code(s): R10.9 - Unspecified abdominal pain Status: Acute Assessment and Plan: Abdominal pain could be related to pancreatitis, colitis as seen on CT scan of the abdomen and pelvis done in the ER on 04/14/2022 -continue maintenance IV fluids -patient started on ciprofloxacin and metronidazole as he is allergic to penicillin -lactic acid could be related to colitis, will continue to monitor -lactic acid has resolved, patient denies any abdominal pain at this time -continue to monitor (7) Colitis: Code(s): K52.9 - Noninfective gastroenteritis and colitis, unspecified Status: Acute Assessment and Plan: As above (8) Electrolyte abnormality: Code(s): E87.8 - Other disorders of electrolyte and fluid balance, not elsewhere classified Status: Acute Assessment and Plan: Potassium is normal Plan Continue maintenance IV fluids Continue Precedex and Librium Increased to full liquid diet Additional Plan Discussed with patient updated with his condition and plan of care. Discussed Dr. Quesada, GI, he is agreeable to full liquid diet for now Code status: Full code Critical care time spent: 32 minutes This dictation may have been done utilizing a voice recognition system. Attempts have been made to correct errors. However, there may be uncorrected grammatical, spelling, and recognition errors present. Due to a high probability of clinically significant, life threatening deterioration, the patient required my highest level of preparedness to intervene emergently and I personally spent this critical care time directly and personally managing the patient. This critical care time included obtaining a history; examining the patient; pulse oximetry; ordering and review of studies; arranging urgent treatment with saadia
[2022-04-16] MEDS: LIPASE/AMYLASE/PROTEASE 12,000 UNITS CAP 2 CAP PO ×2 (12:33→17:29)
[2022-04-16] MEDS: dexmedeTOMIDine 400 MCG/100 ML 400 MCG/100 ML BAG 12.15 MCG IV CONT (12:39)
[2022-04-16] MEDS: dexmedeTOMIDine 400 MCG/100 ML 400 MCG/100 ML BAG 8.1 MCG IV CONT (20:43)
[2022-04-16] MEDS: AMITRIPTYLINE HCL 25 MG TABLET 100 MG PO (22:36)
[2022-04-17] VITALS (18 sets, daily range): BP systolic 120–168; BP diastolic 75–122; PULSE 54–104; RESP 13–98; TEMP 35.9–36.8; O2SAT 20–100
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
[2022-04-17] MEDS: LORazepam INJ (*CRX) 2 MG/ML VIAL IV PUSH ×4 (00:38→20:23)
[2022-04-17] MEDS: CIPROFLOXACIN 400 MG/D5W 200ML 200 ML 200 MG IVPB ×2 (01:30→14:28)
[2022-04-17] MEDS: SODIUM CHLORIDE 0.9% IV 1,000 ML 150 ML IV CONT (06:15)
[2022-04-17 07:19] LABS: Basophils Percent Auto 0.6 % (0.2-1.2); Eosinophils Absolute Auto 0.4 K/mm3 (0-0.3); Eosinophils Percent Auto 8.2 % (0-4.4); Hematocrit 36.7 % (42.0-52.0); Hemoglobin 13.1 g/dL (14.0-18.0); Immature Granulocyte Absolute 0.01 K/mm3 (0.00-0.031); Immature Granulocyte Percent A 0.2 % (0-0.5); Immature Platelet Fraction Pct 7.4 % (0.9-11.2); Lymphocytes Percent Auto 29.8 % (18.3-44.2); Mean Corpuscular HGB Conc 35.7 g/dl (32-36); Mean Corpuscular Volume 89.5 fl (80-100); Mean Platelet Volume 10.2 fl (7.4-10.4); Monocytes Absolute Auto 0.4 K/mm3 (0.1-0.6); Monocytes Percent Auto 8.3 % (2.6-8.5); Neutrophils Absolute Auto 2.7 K/mm3 (1.3-6.7); Neutrophils Percent Auto 52.9 % (45.5-73.1); Platelet Count Result 132 k/mm3 (150-375); Red Cell Distribution Width 12.3 % (11.5-14.5)
[2022-04-17 07:28] LABS: Alanine Aminotransferase 60 U/L (6-50); Albumin Level 3.9 g/dL (3.5-5.1); Alkaline Phosphatase 80 U/L (38-126); Anion Gap 11 mmol/L (8-16); Aspartate Amino Transferase 51 U/L (17-59); Bilirubin,Total 0.5 mg/dL (0.2-1.3); Blood Urea Nitrogen 8 mg/dL (9-20); Calcium 9.1 mg/dL (8.4-10.2); Carbon Dioxide 22 mmol/L (22-30); Chloride 105 mmol/L (98-107); Estimated CRCL calculation 121 ml/min; Estimated Glomerular Filt Rate > 60; Glucose 100 mg/dL (65-110); Lipase 1002 U/L (23-300); Sodium 138 mmol/L (137-145); Triglycerides 333 mg/dL (<150)
[2022-04-17] MEDS: dexmedeTOMIDine 400 MCG/100 ML 400 MCG/100 ML BAG 8.1 MCG IV CONT (07:58)
--- NOTE | 2022-04-17 09:17 | WPDINTPN ---
Progress Note: A&P Assessment and Plan (1) Alcohol intoxication: Code(s): F10.929 - Alcohol use, unspecified with intoxication, unspecified Status: Acute Assessment and Plan: Patient presented with symptoms of alcohol intoxication, dehydration, possible pancreatitis with elevated lipase and LFTs -Continue p.r.n. Ativan and Precedex infusion -WA protocol in place -continue folic acid and thiamine -continue Librium q.6 hours -patient will confused this morning could be going into withdrawal as has been about 48-72 hours after his last drink (2) Lactic acidosis: Code(s): E87.2 - Acidosis Status: Acute Assessment and Plan: RESOLVED Lactic acidosis secondary to dehydration, alcohol intoxication and poor clearance due to impaired liver function -continue maintenance IV fluids -continue to monitor levels (3) Dehydration: Code(s): E86.0 - Dehydration Status: Acute Assessment and Plan: Resolved Elevated lactic acid, likely related to decreased clearance, alcohol intoxication, alcohol ketoacidosis -patient complaining of nausea and vomiting -continue maintenance IV fluids (4) Pancreatitis: Code(s): K85.90 - Acute pancreatitis without necrosis or infection, unspecified Status: Acute Assessment and Plan: Elevated lipase and LFTs, could be related pancreatitis -patient has received adequate IV fluids -currently on low-fat diet -appreciate GI following the patient -LFTs, lipase, triglycerides are improved -continue antiemetics -patient has been started on pancreatic enzymes for gastroenterology 04/15/2022 RUQ ultrasound: Mild diffuse hepatic steatosis, Silvestre bile duct at upper limits of normal with normal gallbladder and no cholelithiasis 04/14/2022 CT scan of the abdomen and pelvis: 1. Abnormal diffuse thickening of the colon, suspicious for colitis, most likely infectious or inflammatory. 2:? Hypodense pancreatic head mass not well visualized on the current study. Correlation with MRI with contrast recommended. (5) Elevated liver enzymes: Code(s): R74.8 - Abnormal levels of other serum enzymes Status: Acute Assessment and Plan: Elevated liver enzymes likely related to alcohol intake, hepatic steatosis on the last CT scan -LFTs trending down -continue to monitor (6) Abdominal pain: Code(s): R10.9 - Unspecified abdominal pain Status: Acute Assessment and Plan: RESOLVED Abdominal pain could be related to pancreatitis, colitis as seen on CT scan of the abdomen and pelvis done in the ER on 04/14/2022 -continue maintenance IV fluids -continue ciprofloxacin (started 04/14/2022) for total of 5 days. Metronidazole has been discontinued -lactic acid had resolved -continue to monitor (7) Colitis: Code(s): K52.9 - Noninfective gastroenteritis and colitis, unspecified Status: Acute Assessment and Plan: As above (8) Electrolyte abnormality: Code(s): E87.8 - Other disorders of electrolyte and fluid balance, not elsewhere classified Status: Acute Assessment and Plan: Potassium is normal Plan Decreased maintenance IV fluids Continue Precedex and Librium Additional Plan Discussed with patient updated with his condition and plan of care. Code status: Full code Critical care time spent: 32 minutes This dictation may have been done utilizing a voice recognition system. Attempts have been made to correct errors. However, there may be uncorrected grammatical, spelling, and recognition errors present. Due to a high probability of clinically significant, life threatening deterioration, the patient required my highest level of preparedness to intervene emergently and I personally spent this critical care time directly and personally managing the patient. This critical care time included obtaining a history; examining the patient; pulse oximetry; ordering and review of studies; ar
[2022-04-17] MEDS: busPIRone HCL 10 MG TABLET PO ×3 (09:45→17:44)
[2022-04-17] MEDS: levETIRAcetam 500 MG TABLET PO ×2 (09:45→20:23)
[2022-04-17] MEDS: FOLIC ACID 1 MG TABLET PO (09:45)
[2022-04-17] MEDS: GABAPENTIN 300 MG CAPSULE PO ×3 (09:45→17:44)
--- NOTE | 2022-04-17 10:35 | WPDGIPROGNO ---
Progress Note: A&P Assessment and Plan (1) Pancreatitis: Code(s): K85.90 - Acute pancreatitis without necrosis or infection, unspecified Status: Acute Assessment and Plan: lipase was elevated, 691 on admission, now 1049. It was slightly elevated a few months ago but in between had been normal when hospitalized recently. He does not believe that he has had pancreatitis in the past. 04/16/2022 today lipase is higher, over 1300 but he is not having any abdominal pain. 04/17/2022 Lipase has come down to 1000 . Due to the abnormality on scan I will schedule him for MRCP to better delineate what may be a pancreatic mass versus pancreatitis (2) Transaminitis: Code(s): R74.01 - Elevation of levels of liver transaminase levels Status: Acute Assessment and Plan: Likely secondary to alcohol abuse 04/16/2022 transaminases are lower today, 75 and 79 respectively for the AST and ALT. Bilirubin also is normal now (3) Alcohol abuse with withdrawal: Code(s): F10.139 - Alcohol abuse with withdrawal, unspecified Status: Acute Assessment and Plan: he has had previous admissions for alcohol withdrawal syndrome. Obviously he has not been able to refrain from drinking alcohol, despite the fact that he states he has been told how dangerous it is in his situation (4) Pancreatic mass: Code(s): K86.89 - Other specified diseases of pancreas Status: Acute Assessment and Plan: this may be a mass or could be localized phlegmon from pancreatitis. We will obtain MRCP on Monday (5) Erosive esophagitis: Code(s): K22.10 - Ulcer of esophagus without bleeding Status: Acute Assessment and Plan: He is on pantoprazole. Denies heartburn at this time (6) Colitis: Code(s): K52.9 - Noninfective gastroenteritis and colitis, unspecified Status: Acute Assessment and Plan: CT report indicates: IMPRESSION: 1. Abnormal diffuse thickening of the colon, suspicious for colitis, most likely infectious or inflammatory. 2:? Hypodense pancreatic head mass not well visualized on the current study. Correlation with MRI with contrast recommended. he will at some point require colonoscopy. Plan We will slowly advance his diet as tolerated beginning with sips of water and liquids today. Additional Plan I have discussed this case with the plastics sheet finishing press operator. We are in agreement with plan of care. although his lipase is a bit higher, clinically he is doing well and we will therefore advance his diet. I will start him on Creon. 04/17/2022 he did tolerate the low-fat diet that we began today. He is still requiring Precedex. MRCP will be done tomorrow Subjective Date/time seen: 04/17/22 10:35 He states that he is tolerating his diet. He just had breakfast. He is feeling good and denies abdominal pain. I discussed with him the findings of possible colitis on CT scan. He states that he is having loose stools now all since admission but had not had any problems like that before admission. Staff informs me that he has still been hallucinating and consequently is still on Precedex. Exam Narrative: General: Well-built individual in no acute distress HEENT: Moist oral mucosa, sclera is clear, pupil reactive Neck: Supple Respiratory: Clear to auscultation bilaterally trachea central,, no crackles or wheezing Cardiac: S1-S2 is normal, regular rate and rhythm Abdomen: Soft, nontender, nondistended, normoactive bowel sounds. Midline scar from past surgery with some keloid formation Extremities: No clubbing, cyanosis or edema, warm Neuro: Patient is alert, awake, not oriented. Nonfocal, upper extremity tremors have improved Skin: No lesions noted Psych: Anxious and upset Const: General: alert Orientation/consciousness: patient oriented x3 Eyes: Sclera: sclerae normal Resp: Auscultation: clear to auscultation bilaterally Cardio: Rhythm: regul
[2022-04-17] MEDS: ACETAMINOPHEN 325 MG TABLET 650 MG PO (16:00)
[2022-04-17] MEDS: chlordiazePOXIDE (*CRX) 25 MG CAPSULE 50 MG PO ×2 (16:01→22:13)
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
[2022-04-17] MEDS: THIAMINE HCL 100 MG TABLET PO (17:44)
[2022-04-17] MEDS: LIPASE/AMYLASE/PROTEASE 12,000 UNITS CAP 2 CAP PO (17:44)
[2022-04-17] MEDS: SODIUM CHLORIDE 0.9% IV 1,000 ML 75 ML IV CONT (20:08)
[2022-04-17] MEDS: PANTOPRAZOLE SODIUM IV 40 MG VIAL IV PUSH (20:23)
[2022-04-17] MEDS: AMITRIPTYLINE HCL 25 MG TABLET 100 MG PO (23:43)
[2022-04-18] VITALS (9 sets, daily range): BP systolic 147–174; BP diastolic 67–115; PULSE 71–112; RESP 15–20; TEMP 36.3–36.8; O2SAT 96–100
[2022-04-18] MEDS: CIPROFLOXACIN 400 MG/D5W 200ML 200 ML 200 MG IVPB ×2 (04:09→17:43)
[2022-04-18] MEDS: ACETAMINOPHEN 325 MG TABLET 650 MG PO ×2 (04:34→16:04)
[2022-04-18] MEDS: chlordiazePOXIDE (*CRX) 25 MG CAPSULE 50 MG PO ×4 (04:35→21:00)
[2022-04-18 04:45] LABS: Basophils Absolute Auto 0.1 K/mm3 (0.0-0.1); Basophils Percent Auto 0.7 % (0.2-1.2); Eosinophils Absolute Auto 0.4 K/mm3 (0-0.3); Eosinophils Percent Auto 5.2 % (0-4.4); Hematocrit 37.5 % (42.0-52.0); Hemoglobin 13.1 g/dL (14.0-18.0); Immature Granulocyte Absolute 0.03 K/mm3 (0.00-0.031); Immature Granulocyte Percent A 0.4 % (0-0.5); Immature Platelet Fraction Pct 8.6 % (0.9-11.2); Lymphocytes Absolute Auto 2.22 K/mm3 (0.9-3.2); Mean Corpuscular HGB Conc 34.9 g/dl (32-36); Mean Corpuscular Hemoglobin 31.8 pg (26-34); Mean Platelet Volume 10.5 fl (7.4-10.4); Monocytes Absolute Auto 0.5 K/mm3 (0.1-0.6); Monocytes Percent Auto 6.7 % (2.6-8.5); Platelet Count Result 146 k/mm3 (150-375); Red Blood Count 4.12 M/mm3 (4.6-6.20); Red Cell Distribution Width 12.6 % (11.5-14.5); White Blood Count 7.2 K/mm3 (4.5-10.0)
[2022-04-18 04:57] LABS: Lipase 1109 U/L (23-300); Magnesium 1.5 mg/dL (1.6-2.3); Phosphorus 3.4 mg/dL (2.5-4.5); Triglycerides 238 mg/dL (<150)
[2022-04-18 07:44] LABS: Alanine Aminotransferase 84 U/L (6-50); Albumin Level 4.1 g/dL (3.5-5.1); Alkaline Phosphatase 105 U/L (38-126); Anion Gap 12 mmol/L (8-16); Aspartate Amino Transferase 90 U/L (17-59); Bilirubin,Total 0.5 mg/dL (0.2-1.3); Blood Urea Nitrogen 10 mg/dL (9-20); Calcium 9.5 mg/dL (8.4-10.2); Carbon Dioxide 22 mmol/L (22-30); Chloride 102 mmol/L (98-107); Estimated CRCL calculation 121 ml/min; Estimated Glomerular Filt Rate > 60; Glucose 107 mg/dL (65-110); Potassium 3.7 mmol/L (3.4-5.0); Sodium 136 mmol/L (137-145)
[2022-04-18] MEDS: MAGNESIUM SULF 2 GM/WATER 50ML 2 GM/50 ML BAG IVPB (08:00)
--- NOTE | 2022-04-18 08:09 | PM.IMPN ---
Progress Note: A&P Assessment and Plan (1) Alcohol intoxication: Code(s): F10.929 - Alcohol use, unspecified with intoxication, unspecified Status: Acute Assessment and Plan: alcohol withdrawal currently being treated with Librium 50 mg every 6 hours, Ativan as needed per CIWA and attempting to wean the Precedex infusion 04/18: Precedex drip weaned off. Patient stable on Librium 50 mg q.6 hours with Ativan as needed based on CIWA. No doses of Ativan given today, 3 doses yesterday, 6 the day before. He is improving significantly. Will attempt to wean Librium tomorrow if he continues to not need Ativan. (2) Lactic acidosis: Code(s): E87.2 - Acidosis Status: Acute Assessment and Plan: resolved (3) Dehydration: Code(s): E86.0 - Dehydration Status: Acute Assessment and Plan: resolved, continue IV fluids as patient's diet increases (4) Pancreatitis: Code(s): K85.90 - Acute pancreatitis without necrosis or infection, unspecified Status: Acute Assessment and Plan: improving, advanced diet as tolerated 04/18: Appreciate GI consultation. Continue Creon with meals. MRCP was done today that showed mild interstitial and peripancreatic edema with dilated pancreatic duct all side branches at the head of the pancreas indicative of uncomplicated acute interstitial pancreatitis without any signs of necrosis or peripancreatic fluid collection. Continue current management. (5) Elevated liver enzymes: Code(s): R74.8 - Abnormal levels of other serum enzymes Status: Acute Assessment and Plan: improving, continue to monitor (6) Abdominal pain: Code(s): R10.9 - Unspecified abdominal pain Status: Acute Assessment and Plan: improving, continue Cipro Flagyl (7) Colitis: Code(s): K52.9 - Noninfective gastroenteritis and colitis, unspecified Status: Acute Assessment and Plan: As above (8) Electrolyte abnormality: Code(s): E87.8 - Other disorders of electrolyte and fluid balance, not elsewhere classified Status: Acute Assessment and Plan: Replace potassium Plan Continue Librium Replace potassium GI consulted Additional Plan full codet Subjective Date/time seen: 04/18/22 08:09 Interval history: Patient resting comfortably in bed, no complaints.? No overnight events noted.? No chest pain or shortness of breath.? No nausea, vomiting or diarrhea.? No fevers or chills. Nursing staff report no continued episodes of paranoia. Review of Systems Review of Systems: All systems reviewed & are unremarkable except as noted in HPI and below Exam Narrative: General:??No acute distress, alert and oriented per baseline HEENT:? Atraumatic, normocephalic, mucous membranes moist CV:? Regular rate and rhythm, S1, S2 Lungs:? Clear to auscultation bilaterally, no rales or crackles noted, no wheezes, good air entry Abdomen:? Soft, nontender, nondistended Extremities:? Normal to inspection Skin:? No rashes noted, no lesions or wounds seen Psych:? Euthymic, normal affect Objective Data Vital Signs Vital Signs: Vital Signs - 24 hr 04/17/22 09:41 04/17/22 09:05 04/17/22 10:00 Temperature 96.6 F L Pulse Rate 59 L 56 L 87 Respiratory Rate 13 Blood Pressure 148/102 H 153/111 H Pulse Oximetry 95 100 Oxygen Delivery 04/17/22 10:00 04/17/22 12:00 04/17/22 12:00 Temperature Pulse Rate 87 71 Respiratory Rate 16 Blood Pressure 136/90 Pulse Oximetry 95 95 Oxygen Delivery Room Air 04/17/22 12:37 04/17/22 12:00 04/17/22 12:45 Temperature 97.7 F Pulse Rate 72 84 Respiratory Rate Blood Pressure Pulse Oximetry Oxygen Delivery 04/17/22 14:00 04/17/22 14:00 04/17/22 14:33 Temperature Pulse Rate 72 72 64 Respiratory Rate 14 13 Blood Pressure 120/75 Pulse Oximetry 100 Oxygen Delivery 04/17/22 16:00 04/17/22 16:
--- NOTE | 2022-04-18 08:20 | WPDINTPN ---
Progress Note: A&P Assessment and Plan (1) Pancreatitis: Code(s): K85.90 - Acute pancreatitis without necrosis or infection, unspecified Status: Acute Assessment and Plan: Elevated lipase and LFTs, could be related pancreatitis -patient has received adequate IV fluids -currently on low-fat diet -appreciate GI following the patient -LFTs, lipase, triglycerides are improving -continue antiemetics -patient has been started on pancreatic enzymes for gastroenterology -MRCP per GI today 04/15/2022 RUQ ultrasound: Mild diffuse hepatic steatosis, Silvestre bile duct at upper limits of normal with normal gallbladder and no cholelithiasis 04/14/2022 CT scan of the abdomen and pelvis: 1. Abnormal diffuse thickening of the colon, suspicious for colitis, most likely infectious or inflammatory. 2:? Hypodense pancreatic head mass not well visualized on the current study. Correlation with MRI with contrast recommended. (2) Alcohol intoxication: Code(s): F10.929 - Alcohol use, unspecified with intoxication, unspecified Status: Acute Assessment and Plan: Patient presented with symptoms of alcohol intoxication, dehydration, possible pancreatitis with elevated lipase and LFTs -Continue p.r.n. Ativan -OFF PRECEDEX INFUSION SINCE 04/17 -CIWA protocol in place -continue folic acid and thiamine -continue Librium q.6 hours -04/17: patient will confused this morning could be going into withdrawal as has been about 48-72 hours after his last drink -04/18: Patient more cooperative, oriented, alert. (3) Lactic acidosis: Code(s): E87.2 - Acidosis Status: Acute Assessment and Plan: RESOLVED Lactic acidosis secondary to dehydration, alcohol intoxication and poor clearance due to impaired liver function -continue maintenance IV fluids -continue to monitor levels (4) Dehydration: Code(s): E86.0 - Dehydration Status: Acute Assessment and Plan: Resolved Elevated lactic acid, likely related to decreased clearance, alcohol intoxication, alcohol ketoacidosis -patient complaining of nausea and vomiting -continue maintenance IV fluids (5) Elevated liver enzymes: Code(s): R74.8 - Abnormal levels of other serum enzymes Status: Acute Assessment and Plan: Elevated liver enzymes likely related to alcohol intake, hepatic steatosis on the last CT scan -LFTs trending down -continue to monitor (6) Abdominal pain: Code(s): R10.9 - Unspecified abdominal pain Status: Acute Assessment and Plan: RESOLVED Abdominal pain could be related to pancreatitis, colitis as seen on CT scan of the abdomen and pelvis done in the ER on 04/14/2022 -continue maintenance IV fluids -continue ciprofloxacin (started 04/14/2022) for total of 5 days. Metronidazole has been discontinued -lactic acid had resolved -continue to monitor (7) Colitis: Code(s): K52.9 - Noninfective gastroenteritis and colitis, unspecified Status: Acute Assessment and Plan: As above (8) Electrolyte abnormality: Code(s): E87.8 - Other disorders of electrolyte and fluid balance, not elsewhere classified Status: Acute Assessment and Plan: Replace magnesium Plan MRCP today Continue Precedex and Librium Additional Plan Discussed with patient updated with his condition and plan of care. Code status: Full code Critical care time spent: 31 minutes This dictation may have been done utilizing a voice recognition system. Attempts have been made to correct errors. However, there may be uncorrected grammatical, spelling, and recognition errors present. Due to a high probability of clinically significant, life threatening deterioration, the patient required my highest level of preparedness to intervene emergently and I personally spent this critical care time directly and personally managing the patient. This critical care time included obtaining a history;
--- NOTE | 2022-04-18 08:52 | PC.NURSE ---
840-Patient taken to MRI per wheelchair.
[2022-04-18] MEDS: ENOXAPARIN 40 MG/0.4 ML SYRINGE SUB-Q (10:12)
[2022-04-18] MEDS: busPIRone HCL 10 MG TABLET PO ×3 (10:12→17:44)
[2022-04-18] MEDS: LIPASE/AMYLASE/PROTEASE 12,000 UNITS CAP 2 CAP PO ×2 (10:12→17:44)
[2022-04-18] MEDS: FOLIC ACID 1 MG TABLET PO (10:13)
[2022-04-18] MEDS: levETIRAcetam 500 MG TABLET PO ×2 (10:13→20:54)
[2022-04-18] MEDS: GABAPENTIN 300 MG CAPSULE PO ×3 (10:13→17:44)
[2022-04-18] MEDS: PANTOPRAZOLE SODIUM IV 40 MG VIAL IV PUSH ×2 (10:13→21:04)
[2022-04-18] MEDS: THIAMINE HCL 100 MG TABLET PO (10:14)
--- NOTE | 2022-04-18 10:17 | PC.NURSE ---
1000-Back from MRI. Assisted back to bed.
--- NOTE | 2022-04-18 11:56 | PCFNICU ---
ICU Rounding Note: Pt current nutrition is Low Fat. Last recorded weight is 91.2 kg, up from 91 kg on admit. Bowel Motility: +Bm reported 04/16 Labs Reviewed:TG 238, Lipase 1109, Hct 37.5, Hgb 13.1,Mg 1.5 Meds Noted:Thiamine, Folic Acid, Lovenox, Protonix, Keppra, Cipro, Librium Skin: WNL Additional Notes: Patient seen today for nutrition follow up. MRCP today. Oral Intake on Low Fat diet 75-100% of meals. No diet questions or concerns. Agree with diet orders. Following daily in ICU rounds. Monitor diet order, weight, and labs, and follow up in 7 days.
--- NOTE | 2022-04-18 12:07 | PC.NURSE ---
Dr. Stephens notified of patients status change. [facility]
--- NOTE | 2022-04-18 13:20 | PC.NURSE ---
Patient transferred to room 260 per wheelchair. Report given to DARIA Zarco. All questions answered. All belongings sent.
[2022-04-18] MEDS: SODIUM CHLORIDE 0.9% IV 1,000 ML 75 ML IV CONT (14:57)
[2022-04-18] MEDS: LORazepam INJ (*CRX) 2 MG/ML VIAL IV PUSH (20:56)
[2022-04-19] MEDS: ACETAMINOPHEN 325 MG TABLET 650 MG PO (02:29)
[2022-04-19] MEDS: SODIUM CHLORIDE 0.9% IV 1,000 ML 75 ML IV CONT (03:35)
[2022-04-19] MEDS: chlordiazePOXIDE (*CRX) 25 MG CAPSULE 50 MG PO (03:37)
[2022-04-19] MEDS: AMITRIPTYLINE HCL 25 MG TABLET 100 MG PO (03:38)
[2022-04-19 03:39] VITALS: BP 157/103; PULSE 77; RESP 16; TEMP 36.8; O2SAT 100
[2022-04-19] MEDS: CIPROFLOXACIN 400 MG/D5W 200ML 200 ML 200 MG IVPB ×2 (03:41→14:14)
[2022-04-19 05:20] LABS: Basophils Absolute Auto 0.1 K/mm3 (0.0-0.1); Basophils Percent Auto 0.8 % (0.2-1.2); Eosinophils Absolute Auto 0.3 K/mm3 (0-0.3); Eosinophils Percent Auto 3.4 % (0-4.4); Hematocrit 35.6 % (42.0-52.0); Hemoglobin 12.3 g/dL (14.0-18.0); Immature Granulocyte Absolute 0.05 K/mm3 (0.00-0.031); Immature Granulocyte Percent A 0.6 % (0-0.5); Immature Platelet Fraction Pct 7.2 % (0.9-11.2); Lymphocytes Absolute Auto 2.29 K/mm3 (0.9-3.2); Lymphocytes Percent Auto 27.8 % (18.3-44.2); Mean Corpuscular HGB Conc 34.6 g/dl (32-36); Mean Corpuscular Volume 92.7 fl (80-100); Mean Platelet Volume 10.2 fl (7.4-10.4); Monocytes Absolute Auto 0.6 K/mm3 (0.1-0.6); Neutrophils Percent Auto 60.4 % (45.5-73.1); Platelet Count Result 146 k/mm3 (150-375); Red Blood Count 3.84 M/mm3 (4.6-6.20); Red Cell Distribution Width 13.1 % (11.5-14.5); White Blood Count 8.3 K/mm3 (4.5-10.0)
[2022-04-19 05:31] LABS: Lipase 1693 U/L (23-300); Magnesium 1.7 mg/dL (1.6-2.3); Phosphorus 4.2 mg/dL (2.5-4.5)
--- NOTE | 2022-04-19 07:52 | WPDGIPROGNO ---
Progress Note: A&P Assessment and Plan (1) Pancreatitis: Code(s): K85.90 - Acute pancreatitis without necrosis or infection, unspecified Status: Acute Assessment and Plan: lipase was elevated, 691 on admission, now 1049. It was slightly elevated a few months ago but in between had been normal when hospitalized recently. He does not believe that he has had pancreatitis in the past. 04/16/2022 today lipase is higher, over 1300 but he is not having any abdominal pain. 04/17/2022 Lipase has come down to 1000 . Due to the abnormality on scan I will schedule him for MRCP to better delineate what may be a pancreatic mass versus pancreatitis 04/19/2022. Lipase continues to increase. He denies abdominal pain. MRCP shows pancreatic edema but no tumor. (2) Transaminitis: Code(s): R74.01 - Elevation of levels of liver transaminase levels Status: Acute Assessment and Plan: Likely secondary to alcohol abuse 04/16/2022 transaminases are lower today, 75 and 79 respectively for the AST and ALT. Bilirubin also is normal now 04/19/2022 we discussed his alcohol abuse problem. I explained that he is in danger of developing cirrhosis. I told that he does already have a fatty liver. He states that he is going to try to of avoid or eliminate alcohol (3) Alcohol abuse with withdrawal: Code(s): F10.139 - Alcohol abuse with withdrawal, unspecified Status: Acute Assessment and Plan: he has had previous admissions for alcohol withdrawal syndrome. Obviously he has not been able to refrain from drinking alcohol, despite the fact that he states he has been told how dangerous it is in his situation (4) Pancreatic mass: Code(s): K86.89 - Other specified diseases of pancreas Status: Acute Assessment and Plan: this may be a mass or could be localized phlegmon from pancreatitis. We will obtain MRCP on Monday MRCP is negative for mass. I doubt that this is a neoplasm. I told that we will have him get follow-up imaging studies in a month. (5) Erosive esophagitis: Code(s): K22.10 - Ulcer of esophagus without bleeding Status: Acute Assessment and Plan: He is on pantoprazole. Denies heartburn at this time (6) Colitis: Code(s): K52.9 - Noninfective gastroenteritis and colitis, unspecified Status: Acute Assessment and Plan: CT report indicates: IMPRESSION: 1. Abnormal diffuse thickening of the colon, suspicious for colitis, most likely infectious or inflammatory. 2:? Hypodense pancreatic head mass not well visualized on the current study. Correlation with MRI with contrast recommended. he will at some point require colonoscopy. The diarrhea he was having shortly after admission has resolved. Now he has not had a bowel movement for few days. I do not think that he has inflammatory bowel disease or other colon problem that would need investigation at this particular time. Plan We will slowly advance his diet as tolerated beginning with sips of water and liquids today. Additional Plan I have discussed this case with the family health nurse practitioner. We are in agreement with plan of care. although his lipase is a bit higher, clinically he is doing well and we will therefore advance his diet. I will start him on Creon. 04/17/2022 he did tolerate the low-fat diet that we began today. He is still requiring Precedex. MRCP will be done tomorrow Subjective Date/time seen: 04/19/22 07:52 he has been moved out of intensive care. He is feeling good. He states that his back is sore because he was sitting up trying to get some work done On his computer. He denies sweating or fever. He denies nausea or vomiting. The had been having loose stools but states that now he has not had a bowel movement for 3 days. I discussed with him the fact that he still has an elevated lipase and probably has chronic pancreatitis. The MR CP does not show a tumor.
[2022-04-19 07:56] VITALS: BP 160/94
[2022-04-19 08:00] VITALS: PULSE 88
--- NOTE | 2022-04-19 08:14 | PM.IMPN ---
Progress Note: A&P Assessment and Plan (1) Alcohol intoxication: Code(s): F10.929 - Alcohol use, unspecified with intoxication, unspecified Status: Acute Assessment and Plan: alcohol withdrawal currently being treated with Librium 50 mg every 6 hours, Ativan as needed per CIWA and attempting to wean the Precedex infusion 04/18: Precedex drip weaned off. Patient stable on Librium 50 mg q.6 hours with Ativan as needed based on CIWA. No doses of Ativan given today, 3 doses yesterday, 6 the day before. He is improving significantly. Will attempt to wean Librium tomorrow if he continues to not need Ativan. 04/19: Will wean librium from 50 mg to 25 mg Q6h, ADAT (2) Lactic acidosis: Code(s): E87.2 - Acidosis Status: Acute Assessment and Plan: resolved (3) Dehydration: Code(s): E86.0 - Dehydration Status: Acute Assessment and Plan: resolved, d/c IVF as po intake is increasing (4) Pancreatitis: Code(s): K85.90 - Acute pancreatitis without necrosis or infection, unspecified Status: Acute Assessment and Plan: improving, advanced diet as tolerated 04/18: Appreciate GI consultation. Continue Creon with meals. MRCP was done today that showed mild interstitial and peripancreatic edema with dilated pancreatic duct all side branches at the head of the pancreas indicative of uncomplicated acute interstitial pancreatitis without any signs of necrosis or peripancreatic fluid collection. Continue current management. 04/19: Cont creon, ADAT, wean librium (5) Elevated liver enzymes: Code(s): R74.8 - Abnormal levels of other serum enzymes Status: Acute Assessment and Plan: improving, continue to monitor (6) Abdominal pain: Code(s): R10.9 - Unspecified abdominal pain Status: Acute Assessment and Plan: improving, d/c abx, no signs of infection lipase cont to increase, sx clinically improving, suspect chronic pancreatitis element per GI notes, will need to f/u with GI specialist after d/c and avoid all alcohol (7) Colitis: Code(s): K52.9 - Noninfective gastroenteritis and colitis, unspecified Status: Acute Assessment and Plan: As above (8) Electrolyte abnormality: Code(s): E87.8 - Other disorders of electrolyte and fluid balance, not elsewhere classified Status: Acute Assessment and Plan: Replace potassium (9) Hypertension: Code(s): I10 - Essential (primary) hypertension Status: Acute Assessment and Plan: significantly elevated, suspect underlying HTN, start lisinopril 10 mg daily Plan DVT ppx with SCDs + lovenox GI ppx with PPI Subjective Date/time seen: 04/19/22 08:14 Review of Systems Review of Systems: All systems reviewed & are unremarkable except as noted in HPI and below Exam Narrative: General:??No acute distress, alert and oriented per baseline HEENT:? Atraumatic, normocephalic, mucous membranes moist CV:? Regular rate and rhythm, S1, S2 Lungs:? Clear to auscultation bilaterally, no rales or crackles noted, no wheezes, good air entry Abdomen:? Soft, nontender, nondistended Extremities:? Normal to inspection Skin:? No rashes noted, no lesions or wounds seen Psych:? Euthymic, normal affect Objective Data Vital Signs Vital Signs: Vital Signs - 24 hr 04/18/22 12:00 04/18/22 16:07 04/18/22 20:47 Temperature 98.1 F 97.3 F L Pulse Rate 81 112 H Pulse Rate [Monitor] 82 Respiratory Rate 20 20 Blood Pressure 147/67 H 174/115 H Pulse Oximetry 99 96 04/18/22 22:13 04/19/22 03:39 04/19/22 07:56 Temperature 98.2 F Pulse Rate 75 77 Pulse Rate [Monitor] Respiratory Rate 16 Blood Pressure 156/106 H 157/103 H 160/94 H Pulse Oximetry 100 100 Intake/Output Intake/Output: Intake & Output 04/16/22 04/17/22 04/18/22 04/19/22 23:59 23:59 23:59 23:59 Intake Total 6437 6958 1411 3763 Output Total 8177 6479 55
[2022-04-19] MEDS: busPIRone HCL 10 MG TABLET PO ×2 (09:52→12:40)
[2022-04-19] MEDS: LIPASE/AMYLASE/PROTEASE 12,000 UNITS CAP 2 CAP PO ×2 (09:52→12:40)
[2022-04-19] MEDS: lisinopriL 10 MG TABLET PO (09:53)
[2022-04-19] MEDS: FOLIC ACID 1 MG TABLET PO (09:53)
[2022-04-19] MEDS: THIAMINE HCL 100 MG TABLET PO (09:53)
[2022-04-19] MEDS: GABAPENTIN 300 MG CAPSULE PO ×2 (09:53→12:40)
[2022-04-19] MEDS: levETIRAcetam 500 MG TABLET PO (09:53)
[2022-04-19] MEDS: PANTOPRAZOLE SODIUM IV 40 MG VIAL IV PUSH (09:53)
[2022-04-19] MEDS: ENOXAPARIN 40 MG/0.4 ML SYRINGE SUB-Q (09:53)
[2022-04-19 12:00] VITALS: PULSE 84
[2022-04-19] MEDS: chlordiazePOXIDE (*CRX) 25 MG CAPSULE PO (12:40)
--- NOTE | 2022-04-19 13:19 | PM.DS ---
DS: Admitting Diagnosis Discharge Date April 19, 2022 Admitting Diagnosis alcohol withdrawal DS: Discharge Diagnosis Discharge Diagnosis (1) Alcohol intoxication: Code(s): F10.929 - Alcohol use, unspecified with intoxication, unspecified Status: Acute Assessment and Plan: alcohol withdrawal currently being treated with Librium 50 mg every 6 hours, Ativan as needed per CIWA and attempting to wean the Precedex infusion 04/18: Precedex drip weaned off. Patient stable on Librium 50 mg q.6 hours with Ativan as needed based on CIWA. No doses of Ativan given today, 3 doses yesterday, 6 the day before. He is improving significantly. Will attempt to wean Librium tomorrow if he continues to not need Ativan. 04/19: Will wean librium from 50 mg to 25 mg Q6h, ADAT (2) Lactic acidosis: Code(s): E87.2 - Acidosis Status: Acute Assessment and Plan: resolved (3) Dehydration: Code(s): E86.0 - Dehydration Status: Acute Assessment and Plan: resolved, d/c IVF as po intake is increasing (4) Pancreatitis: Code(s): K85.90 - Acute pancreatitis without necrosis or infection, unspecified Status: Acute Assessment and Plan: improving, advanced diet as tolerated 04/18: Appreciate GI consultation. Continue Creon with meals. MRCP was done today that showed mild interstitial and peripancreatic edema with dilated pancreatic duct all side branches at the head of the pancreas indicative of uncomplicated acute interstitial pancreatitis without any signs of necrosis or peripancreatic fluid collection. Continue current management. 04/19: Cont creon, ADAT, wean librium (5) Elevated liver enzymes: Code(s): R74.8 - Abnormal levels of other serum enzymes Status: Acute Assessment and Plan: improving, continue to monitor (6) Abdominal pain: Code(s): R10.9 - Unspecified abdominal pain Status: Acute Assessment and Plan: improving, d/c abx, no signs of infection lipase cont to increase, sx clinically improving, suspect chronic pancreatitis element per GI notes, will need to f/u with GI specialist after d/c and avoid all alcohol (7) Colitis: Code(s): K52.9 - Noninfective gastroenteritis and colitis, unspecified Status: Acute Assessment and Plan: As above (8) Electrolyte abnormality: Code(s): E87.8 - Other disorders of electrolyte and fluid balance, not elsewhere classified Status: Acute Assessment and Plan: Replace potassium (9) Hypertension: Code(s): I10 - Essential (primary) hypertension Status: Acute Assessment and Plan: significantly elevated, suspect underlying HTN, start lisinopril 10 mg daily Plan DVT ppx with SCDs + lovenox GI ppx with PPI DS: Summary Hospital Course Hospital Course: 31-year-old male with past medical history of anxiety, alcohol abuse and nephrectomy presented to the ER with alcohol withdrawal symptoms. He had nausea, vomiting, abdominal pain and sweats as well as chest pain shortness a breath. CIWA scale was 53. He was admitted to the ICU with Precedex drip, high-dose thiamine and banana bag. Lactic acid was at 7.5 and IV fluids, broad-spectrum antibiotics and blood cultures were all started. See was were checked regularly, multivitamins and thiamine were administered, Librium was scheduled in addition to the Precedex drip as well as Ativan as needed. Lactic acid improved. LFTs were noted to be elevated and so GI was consulted. Was some concern for pancreatitis seen on the CT scan and lipase was elevated. MRCP was ordered and showed pancreatic edema but no underlying cancer or pseudocyst. Patient was noted to have this office she will ulcer was placed on Protonix. Precedex drip was weaned off. Patient did have hallucinations and paranoia while he was in the ICU. These completely resolved once he was on the floor. See was trended down significant
[2022-04-20 20:21] LABS: CA 19-9 22 U/mL (<34)
== END 2022-04-19 16:20 | disposition home or self-care (01) | DRG 896 ==
LOC: ANHED 09:23 → ANHICU 14:02 → ANH2MED 04-18 13:06
PROVIDERS: Internal Medicine; Internal Medicine Gastroenterology; Nurse Practitioner; Admitting Provider Family Medicine; Emergency Provider General Practice; Visit Provider Student in an Organized Health Care Education/Training Program
DX: F10.239 Alcohol dependence with withdrawal, unspecified (principal); K85.20 Alcohol induced acute pancreatitis without necrosis or infection; K86.0 Alcohol-induced chronic pancreatitis; E87.2 Acidosis; K22.10 Ulcer of esophagus without bleeding; F10.229 Alcohol dependence with intoxication, unspecified; F10.251 Alcohol dependence with alcohol-induced psychotic disorder with hallucinations; F10.250 Alcohol dependence with alcohol-induced psychotic disorder with delusions; E86.0 Dehydration; K52.9 Noninfective gastroenteritis and colitis, unspecified; E83.42 Hypomagnesemia; I10 Essential (primary) hypertension; E87.8 Other disorders of electrolyte and fluid balance, not elsewhere classified; R74.01 Elevation of levels of liver transaminase levels; F17.210 Nicotine dependence, cigarettes, uncomplicated; K86.89 Other specified diseases of pancreas; F41.9 Anxiety disorder, unspecified; Z20.822 Contact with and (suspected) exposure to COVID-19; Z90.5 Acquired absence of kidney
CPT/HCPCS: 36415; 36600; 51701; 71045; 74177; 74183; 76376; 76705; 80053; 80074; 80307; 81001; 82140; 82375; 82378; 82550; 82805; 82948; 83050; 83605; 83690; 83735; 83880; 84100; 84478; 84484; 85025; 85055; 85610; 85730; 86301; 87040; 93005; 96361; 96366; 96367; 96372; 96375; 96376; 99285; A9270; A9577; C9113; C9803; G0378; J0744; J1650; J2060; J2405; J2543; J2550; J3360; J3411; J3475; J7030; J7120; Q9967; U0003; U0005

== ENCOUNTER 2022-05-27 08:32 | Emergency (ER) | payer BC, SELFPAY ==
[2022-05-27] VITALS (16 sets, daily range): BP systolic 131–157; BP diastolic 80–90; PULSE 68–118; RESP 16; TEMP 36.6; O2SAT 91–100
--- NOTE | 2022-05-27 08:53 | ED.GENADULT ---
HPI - General Adult General Chief complaint: Alcohol Stated complaint: etoh withdrawal Time Seen by Provider: 05/27/22 08:33 History of Present Illness HPI narrative: 31-year-old male with history of GI bleed, alcoholism and alcohol withdrawal presenting to the emergency department for evaluation of dehydration with associated nausea after drinking for the last 3 days. Patient was reportedly sober for majority of the last month but restarted drinking approximately 3 to 5 days ago. Patient states that he is unsure of how much he has been drinking. Patient states he is having bilateral abdominal pain with associated nausea and vomiting. Patient denies any blood in his stool or emesis. Related Data Home Medications Medication Instructions Recorded Confirmed buspirone 10 mg tablet 10 mg PO TID 01/17/22 05/27/22 chlordiazepoxide HCl 25 mg capsule 25 mg PO Q6H PRN Alcohol Withdrawal 01/17/22 05/27/22 folic acid 1 mg tablet 1 mg PO DAILY 01/17/22 05/27/22 gabapentin 300 mg capsule 300 mg PO TID 01/17/22 05/27/22 levetiracetam 500 mg tablet 500 mg PO BID 01/17/22 05/27/22 amitriptyline 50 mg tablet See Rx Instructions .Route 01/20/22 05/27/22 .COMPLEX PRN Agitation olanzapine 5 mg tablet 5 mg PRN PRN Anxiety 05/27/22 05/27/22 Allergies Allergy/AdvReac Type Severity Reaction Status Date / Time Penicillins Allergy Unknown Hives Verified 04/14/22 08:49 Review of Systems Review of Systems: CONSTITUTIONAL: Denies fever, chills, or sweats. EYES: Denies visual changes, redness, or discharge. ENT: Denies rhinorrhea, congestion, sore throat, or otalgia. CARDIOVASCULAR: Denies chest pain, palpitations, or edema. RESPIRATORY: Denies cough or dyspnea. GASTROINTESTINAL: See HPI GENITOURINARY: Denies dysuria or hematuria. SKIN: Denies rash or itching. MUSCULOSKELETAL: Denies back pain, joint pain, or myalgia. NEUROLOGIC: Denies headache, numbness, or weakness. 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 His mother Molly will be his surrogate, and he wishes to be a full code. 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 HEAD: normocephalic, atraumatic. EYES: PERRLA/EOMI, conjunctivae clear. NOSE: Normal no drainage NECK: Supple. No adenopathy, no masses. RESPIRATORY: Airway patent, respirations nonlabored. Clear to auscultation bilaterally, no rales, rhonchi, wheezing. CARDIOVASCULAR: Regular rate and rhythm without murmurs rubs or gallops. ABDOMINAL: Soft, diffuse abdominal pain MUSCULOSKELETAL: Moves all ext
[2022-05-27 09:22] LABS: Basophils Absolute Auto 0.1 K/mm3 (0.0-0.1); Basophils Percent Auto 1.1 % (0.2-1.2); Eosinophils Percent Auto 0.1 % (0-4.4); Hematocrit 41.9 % (42.0-52.0); Hemoglobin 14.8 g/dL (14.0-18.0); Immature Granulocyte Absolute 0.03 K/mm3 (0.00-0.031); Immature Granulocyte Percent A 0.4 % (0-0.5); Lymphocytes Absolute Auto 2.53 K/mm3 (0.9-3.2); Lymphocytes Percent Auto 30.2 % (18.3-44.2); Mean Corpuscular HGB Conc 35.3 g/dl (32-36); Mean Corpuscular Hemoglobin 30.9 pg (26-34); Mean Corpuscular Volume 87.5 fl (80-100); Mean Platelet Volume 9.3 fl (7.4-10.4); Monocytes Absolute Auto 0.4 K/mm3 (0.1-0.6); Neutrophils Absolute Auto 5.3 K/mm3 (1.3-6.7); Neutrophils Percent Auto 63.2 % (45.5-73.1); Platelet Count Result 245 k/mm3 (150-375); Red Blood Count 4.79 M/mm3 (4.6-6.20); Red Cell Distribution Width 12.4 % (11.5-14.5); White Blood Count 8.4 K/mm3 (4.5-10.0)
[2022-05-27 09:33] LABS: Alanine Aminotransferase 90 U/L (6-50); Albumin Level 5.5 g/dL (3.5-5.1); Alkaline Phosphatase 101 U/L (38-126); Anion Gap 26 mmol/L (8-16); Aspartate Amino Transferase 98 U/L (17-59); Bilirubin,Total 1.1 mg/dL (0.2-1.3); Blood Urea Nitrogen 8 mg/dL (9-20); Calcium 9.5 mg/dL (8.4-10.2); Carbon Dioxide 18 mmol/L (22-30); Chloride 98 mmol/L (98-107); Estimated CRCL calculation 114 ml/min; Estimated Glomerular Filt Rate > 60; Ethanol 139 mg/dL (<10); Glucose 80 mg/dL (65-110); Potassium 3.9 mmol/L (3.4-5.0); Sodium 142 mmol/L (137-145)
[2022-05-27 09:35] LABS: Lactic Acid Reflex 4.5 mmol/L (0.7-2.0)
[2022-05-27] MEDS: SODIUM CHLORIDE 0.9% IV 1,000 ML 999 ML IV CONT ×2 (09:39→09:50)
[2022-05-27] MEDS: ONDANSETRON INJ 4 MG/2 ML VIAL IV PUSH (09:40)
[2022-05-27] MEDS: LORazepam INJ (*CRX) 2 MG/ML VIAL 1 MG IV PUSH (09:48)
--- NOTE | 2022-05-27 11:19 | PC.NURSE ---
1100 Assumed pt care from DARIA Cotton
[2022-05-27 12:19] LABS: Reflex Lactic Acid Yes or No Add Lactic
== END 2022-05-27 12:40 | disposition home or self-care (01) ==
PROVIDERS: Emergency Provider Emergency Medicine
DX: F10.10 Alcohol abuse, uncomplicated (principal); Y90.6 Blood alcohol level of 120-199 mg/100 ml; F17.210 Nicotine dependence, cigarettes, uncomplicated; Z90.5 Acquired absence of kidney; K22.10 Ulcer of esophagus without bleeding
CPT/HCPCS: 36415; 80053; 80307; 83605; 85025; 96361; 96374; 96375; 99284; J2060; J2405; J7030

== ENCOUNTER 2022-05-27 14:38 | Inpatient (IN) | payer BC, SELFPAY ==
[2022-05-27] VITALS (11 sets, daily range): BP systolic 124–142; BP diastolic 83–89; PULSE 55–105; RESP 15–27; TEMP 37.1; O2SAT 96–100; BMI 25.7
[2022-05-27 15:56] LABS: Basophils Absolute Auto 0.1 K/mm3 (0.0-0.1); Basophils Percent Auto 0.6 % (0.2-1.2); Hematocrit 37.3 % (42.0-52.0); Hemoglobin 13.3 g/dL (14.0-18.0); Immature Granulocyte Absolute 0.02 K/mm3 (0.00-0.031); Immature Granulocyte Percent A 0.2 % (0-0.5); Lymphocytes Absolute Auto 1.47 K/mm3 (0.9-3.2); Lymphocytes Percent Auto 16.3 % (18.3-44.2); Mean Corpuscular HGB Conc 35.7 g/dl (32-36); Mean Corpuscular Hemoglobin 31.6 pg (26-34); Mean Corpuscular Volume 88.6 fl (80-100); Mean Platelet Volume 9.5 fl (7.4-10.4); Monocytes Absolute Auto 0.3 K/mm3 (0.1-0.6); Monocytes Percent Auto 3.8 % (2.6-8.5); Neutrophils Absolute Auto 7.1 K/mm3 (1.3-6.7); Neutrophils Percent Auto 79.1 % (45.5-73.1); Platelet Count Result 201 k/mm3 (150-375); Red Blood Count 4.21 M/mm3 (4.6-6.20); Red Cell Distribution Width 12.5 % (11.5-14.5)
[2022-05-27] MEDS: SODIUM CHLORIDE 0.9% IV 1,000 ML 999 ML IV CONT (16:01)
[2022-05-27] MEDS: METOCLOPRAMIDE HCL INJ 10 MG/2 ML VIAL IV PUSH (16:02)
[2022-05-27 16:10] LABS: Alanine Aminotransferase 85 U/L (6-50); Albumin Level 5.2 g/dL (3.5-5.1); Alkaline Phosphatase 92 U/L (38-126); Anion Gap 22 mmol/L (8-16); Aspartate Amino Transferase 90 U/L (17-59); Bilirubin,Total 1.2 mg/dL (0.2-1.3); Blood Urea Nitrogen 8 mg/dL (9-20); Calcium 9.4 mg/dL (8.4-10.2); Carbon Dioxide 20 mmol/L (22-30); Chloride 97 mmol/L (98-107); Estimated CRCL calculation 131 ml/min; Estimated Glomerular Filt Rate > 60; Glucose 85 mg/dL (65-110); Potassium 4.1 mmol/L (3.4-5.0); Sodium 139 mmol/L (137-145)
[2022-05-27] MEDS: LORazepam INJ (*CRX) 2 MG/ML VIAL IV PUSH (16:19)
--- NOTE | 2022-05-27 16:34 | ED.GENADULT ---
HPI - General Adult General Chief complaint: Alcohol Stated complaint: was here earlier today for etoh withdrawal Time Seen by Provider: 05/27/22 15:21 History of Present Illness HPI narrative: 31-year-old male with history of alcohol abuse presenting the emergency department for evaluation of worsening nausea vomiting and worsening alcohol withdrawal. Patient was evaluated in the emergency department earlier today and declined admission. Patient states he felt fine at that time. After returning home he had worsening symptoms. Patient states he has worsening nausea and vomiting but was also starting to have hallucinations. Related Data Home Medications Medication Instructions Recorded Confirmed buspirone 10 mg tablet 10 mg PO TID 01/17/22 05/27/22 chlordiazepoxide HCl 25 mg capsule 25 mg PO Q6H PRN Alcohol Withdrawal 01/17/22 05/27/22 folic acid 1 mg tablet 1 mg PO DAILY 01/17/22 05/27/22 gabapentin 300 mg capsule 300 mg PO TID 01/17/22 05/27/22 levetiracetam 500 mg tablet 500 mg PO BID 01/17/22 05/27/22 amitriptyline 50 mg tablet See Rx Instructions .Route 01/20/22 05/27/22 .COMPLEX PRN Agitation olanzapine 5 mg tablet 5 mg PRN PRN Anxiety 05/27/22 05/27/22 Allergies Allergy/AdvReac Type Severity Reaction Status Date / Time Penicillins Allergy Unknown Hives Verified 04/14/22 08:49 Review of Systems Review of Systems: CONSTITUTIONAL: Denies fever, chills, or sweats. EYES: Denies visual changes, redness, or discharge. ENT: Denies rhinorrhea, congestion, sore throat, or otalgia. CARDIOVASCULAR: Denies chest pain, palpitations, or edema. RESPIRATORY: Denies cough or dyspnea. GASTROINTESTINAL: See HPI GENITOURINARY: Denies dysuria or hematuria. SKIN: Denies rash or itching. MUSCULOSKELETAL: Denies back pain, joint pain, or myalgia. NEUROLOGIC: Denies headache, numbness, or weakness. 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 His mother Molly will be his surrogate, and he wishes to be a full code. 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 HEAD: normocephalic, atraumatic. EYES: PERRLA/EOMI, conjunctivae clear. NOSE: Normal no drainage NECK: Supple. No adenopathy, no masses. RESPIRATORY: Airway patent, respirations nonlabored. Clear to auscultation bilaterally, no rales, rhonchi, wheezing. CARDIOVASCULAR: Regular rate and rhythm without murmurs rubs or gallops. ABDOMINAL: Soft, nontender, nondistended, normal bowel sounds MUSCULOSKELETAL: Moves all extremities. Strength/
[2022-05-27] MEDS: SODIUM CHLORIDE 0.9% IV 1,000 ML 125 ML IV CONT (18:00)
[2022-05-27] MEDS: dexmedeTOMIDine 400 MCG/100 ML 400 MCG/100 ML BAG IV CONT (18:01)
--- NOTE | 2022-05-27 18:02 | ADMGEN ---
This patient, Niles Díaz, was admitted to Intensive Care Unit-6 at 1754. Patient/family oriented to hospital policies and general routines including ID bracelet, bed and alarms, visiting hours, pain management, procedures, bathroom and other care routines, personal items, smoking policy, room service/diet, and visiting hours. Information on how to activate the Rapid Response Team has been discussed. Patient/Family are encouraged to report perceived risks to care and to ask questions if they do not understand what they are told or what they should do.
--- NOTE | 2022-05-27 18:26 | PM.IMHP ---
H&P: HPI History of Present Illness Date/Time: 05/27/22 18:26 Chief Complaint: Alcohol withdrawal Narrative: This is a 31-year-old male patient who has a history of alcohol abuse. The patient has been here multiple times for alcohol withdrawal. The patient came to the emergency room earlier this morning but then went home after declining stay. The patient then came back this afternoon because of worsening nausea and vomiting due to alcohol withdrawal. The patient stated that he had quit drinking and started drinking again approximately 3 days ago. He said he drinks vodka with other liquor. He said he had his last drink last night. His anion gap is 22. Earlier his lactic acid was 4.5. AST is 90 and ALT is 85. The patient was given IV fluids, Reglan, and Ativan in the emergency room. Patient was ordered a Precedex drip and started when he came to the ICU. The patient said he was seeing things earlier that were not there. He is starting to feel somewhat shaky and having some abdominal pain with nausea. The patient is being admitted to inpatient status on the date of service of 05/27/2022. Review of Systems Review of Systems: See HPI All systems reviewed & are unremarkable except as noted in HPI and below Constitutional: Constitutional: Reports as per HPI and Reports no additional constitutional complaints Eyes: Eyes: Reports as per HPI and Reports no additional eye complaints ENT: Reports system reviewed and no additional complaints, except as documented and Reports Normal hearing present Cardiovascular: Cardiovascular: Reports no additional cardiovascular complaints Respiratory: Respiratory: Reports no additional respiratory complaints and Reports no additional respiratory complaints Gastrointestinal: Gastrointestinal: Reports as per HPI and Reports no additional gastrointestinal complaints Musculoskeletal: Musculoskeletal: Reports no additional musculoskeletal complaints Integumentary/Breasts: Skin/Breast: Reports system reviewed and no additional complaints, except as docu and Reports as per HPI Neurologic: Reports system reviewed and no additional complaints, except as documented, Reports as per HPI and Reports Normal hearing present Psychiatric: Psychiatric: Reports no additional psychiatric complaints and Reports as per HPI Endocrine: Endocrine: Reports no additional endocrine complaints Hematologic/Lymphatic: Hematologic/Lymphatic: Reports no additional hematologic/lymphatic complaints Allergic/Immunologic: Allergic/Immunologic: Reports no additional allergic/immunologic complaints [facility], [facility] Past Medical History Medical History (Updated 05/27/22 @ 18:58 by Elisa Sarmiento NP) Alcohol withdrawal syndrome Alcoholism Depression with anxiety Elevated LFTs Erosive esophagitis Head injury Hypomagnesemia Leukopenia Thrombocytopenia Surgical History Surgical History History of nephrectomy Family History Family History Father Diabetes mellitus Hypertension Grandparent Family history of cardiovascular disease Social History Social History (Updated 05/27/22 @ 18:46 by Elisa Sarmiento NP) Social History: 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 His mother Molly will be his surrogate, and he wishes to be a full code. 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
[2022-05-27 18:52] LABS: Ethanol < 10 mg/dL (<10)
[2022-05-27 19:24] LABS: Amphetamine Screen Urine Negative (Negative); Barbiturate Screen Urine Negative (Negative); Benzodiazepines Screen Urine Positive (Negative); Cannabinoid Screen Urine Positive (Negative); Cocaine Screen Urine Negative (Negative); Methadone Screen Urine Negative (Negative); Opiate Screen Urine Negative (Negative); Phencyclidine Screen Urine Negative (Negative)
[2022-05-27] MEDS: chlordiazePOXIDE (*CRX) 25 MG CAPSULE 50 MG PO (19:47)
[2022-05-27] MEDS: levETIRAcetam 500 MG TABLET PO (20:56)
[2022-05-27] MEDS: ONDANSETRON INJ 4 MG/2 ML VIAL IV PUSH (20:57)
[2022-05-27] MEDS: busPIRone HCL 10 MG TABLET PO (20:57)
[2022-05-27] MEDS: AMITRIPTYLINE HCL 25 MG TABLET BY MOUTH (22:05)
[2022-05-28] VITALS (18 sets, daily range): BP systolic 106–152; BP diastolic 62–99; PULSE 45–81; RESP 15–25; TEMP 36.6–36.9; O2SAT 98–100
[2022-05-28] MEDS: chlordiazePOXIDE (*CRX) 25 MG CAPSULE 50 MG PO ×4 (00:56→17:02)
[2022-05-28] MEDS: SODIUM CHLORIDE 0.9% IV 1,000 ML 125 ML IV CONT ×2 (01:02→09:18)
[2022-05-28 01:03] LABS: Glucose Point of Care 72 mg/dl (65-105)
[2022-05-28 04:07] LABS: Basophils Percent Auto 0.7 % (0.2-1.2); Eosinophils Percent Auto 0.7 % (0-4.4); Hematocrit 34.4 % (42.0-52.0); Hemoglobin 12.1 g/dL (14.0-18.0); Immature Granulocyte Absolute 0.01 K/mm3 (0.00-0.031); Immature Granulocyte Percent A 0.2 % (0-0.5); Lymphocytes Absolute Auto 1.68 K/mm3 (0.9-3.2); Lymphocytes Percent Auto 40.8 % (18.3-44.2); Mean Corpuscular HGB Conc 35.2 g/dl (32-36); Mean Corpuscular Hemoglobin 31.2 pg (26-34); Mean Corpuscular Volume 88.7 fl (80-100); Mean Platelet Volume 9.2 fl (7.4-10.4); Monocytes Absolute Auto 0.3 K/mm3 (0.1-0.6); Neutrophils Percent Auto 49.6 % (45.5-73.1); Platelet Count Result 121 k/mm3 (150-375); Red Blood Count 3.88 M/mm3 (4.6-6.20); Red Cell Distribution Width 12.3 % (11.5-14.5); White Blood Count 4.1 K/mm3 (4.5-10.0)
[2022-05-28 04:18] LABS: Alanine Aminotransferase 59 U/L (6-50); Albumin Level 3.9 g/dL (3.5-5.1); Alkaline Phosphatase 64 U/L (38-126); Anion Gap 9 mmol/L (8-16); Aspartate Amino Transferase 63 U/L (17-59); Bilirubin,Total 1.3 mg/dL (0.2-1.3); Blood Urea Nitrogen 7 mg/dL (9-20); Calcium 8.7 mg/dL (8.4-10.2); Carbon Dioxide 23 mmol/L (22-30); Chloride 105 mmol/L (98-107); Estimated CRCL calculation 135 ml/min; Estimated Glomerular Filt Rate > 60; Glucose 94 mg/dL (65-110); Lipase 112 U/L (23-300); Magnesium 1.6 mg/dL (1.6-2.3); Potassium 3.5 mmol/L (3.4-5.0); Sodium 137 mmol/L (137-145)
--- NOTE | 2022-05-28 07:37 | PM.IMPN ---
Progress Note: A&P Assessment and Plan (1) Alcohol abuse with withdrawal: Code(s): F10.139 - Alcohol abuse with withdrawal, unspecified Status: Acute Assessment and Plan: Monitor CIWA, attempt to wean Precedex drip, appreciate Critical Care consultation, continue daily thiamine (2) Hypertension: Code(s): I10 - Essential (primary) hypertension Status: Acute Assessment and Plan: Continue home lisinopril, monitor creatinine (3) Depression with anxiety: Code(s): F41.8 - Other specified anxiety disorders Status: Acute Assessment and Plan: Continue BuSpar (4) Elevated liver enzymes: Code(s): R74.8 - Abnormal levels of other serum enzymes Status: Acute Assessment and Plan: Secondary to alcohol intake, continue Creon Plan DVT prophylaxis with Lovenox GI prophylaxis on indicated Code status full code Subjective Date/time seen: 05/28/22 07:37 Interval history: No more hallucinations at this point. Denies tremors. No overnight events noted. No chest pain or shortness of breath. No nausea, vomiting or diarrhea. No fevers or chills. Review of Systems Review of Systems: 12 point review of systems was assessed and was negative except as noted in the HPI Exam Narrative: General: No acute distress, alert and oriented per baseline HEENT: Atraumatic, normocephalic, mucous membranes moist CV: Regular rate and rhythm, S1, S2 Lungs: Clear to auscultation bilaterally, no rales or crackles noted, no wheezes, good air entry Abdomen: Soft, nontender, nondistended Extremities: Normal to inspection Skin: No rashes noted, no lesions or wounds seen Psych: Euthymic, normal affect Neuro: Cranial nerves 2-12 grossly intact, strength +5/5 upper and lower extremities bilaterally Objective Data Vital Signs Vital Signs: Vital Signs - 24 hr 05/27/22 14:57 05/27/22 16:21 05/27/22 16:30 Temperature 98.8 F Pulse Rate 105 H 75 91 Pulse Rate [Monitor] Respiratory Rate 20 15 23 H Blood Pressure 130/85 Pulse Oximetry 100 98 96 Oxygen Delivery 05/27/22 16:45 05/27/22 17:00 05/27/22 17:15 Temperature Pulse Rate 82 82 75 Pulse Rate [Monitor] Respiratory Rate 27 H 22 H 19 Blood Pressure Pulse Oximetry 98 99 100 Oxygen Delivery 05/27/22 17:49 05/27/22 18:01 05/27/22 18:00 Temperature Pulse Rate 91 87 Pulse Rate [Monitor] Respiratory Rate 20 20 Blood Pressure 142/89 H Pulse Oximetry 100 98 Oxygen Delivery Room Air 05/27/22 18:00 05/27/22 20:00 05/27/22 20:00 Temperature Pulse Rate 89 76 Pulse Rate [Monitor] 76 Respiratory Rate 16 Blood Pressure 124/83 124/83 Pulse Oximetry 99 Oxygen Delivery 05/27/22 20:00 05/27/22 20:00 05/27/22 22:00 Temperature Pulse Rate 66 55 L Pulse Rate [Monitor] Respiratory Rate 18 Blood Pressure 132/88 Pulse Oximetry 97 Oxygen Delivery Room Air 05/27/22 22:00 05/28/22 00:00 05/28/22 00:00 Temperature Pulse Rate 55 L 55 L Pulse Rate [Monitor] Respiratory Rate Blood Pressure Pulse Oximetry Oxygen Delivery Room Air 05/28/22 00:00 05/28/22 00:00 05/28/22 02:00 Temperature 98.4 F Pulse Rate 54 L 67 Pulse Rate [Monitor] 76 Respiratory Rate 15 16 Blood Pressure 117/68 117/68 116/81 Pulse Oximetry 99 99 Oxygen Delivery 05/28/22 02:00 05/28/22 04:00 05/28/22 04:00 Temperature 97.8 F Pulse Rate 67 56 L Pulse Rate [Monitor] Respiratory Rate 19 Blood Pressure 108/95 H Pulse Oximetry 99 Oxygen Delivery Room Air 05/28/22 04:00 05/28/22 04:00 05/28/22 06:00 Temperature Pulse Rate 53 L 45 L Pulse Rate [Monitor] 56 L Respiratory Rate 17 Blood Pressure 108/95 H 144/99 H Pulse Oximetry 99 Oxygen Delivery 05/28/22 06:00 Temperature Pulse Rate 45 L Pulse Rate [Monitor] Respiratory Rate Blood Pressure Pulse Oximetry Oxygen Delivery Intake/Outp
--- NOTE | 2022-05-28 08:55 | WPDCNINT ---
Assessment and Plan Assessment and plan (1) Alcohol abuse with withdrawal: Code(s): F10.139 - Alcohol abuse with withdrawal, unspecified Status: Acute Assessment and Plan: Patient presented to the hospital with nausea, vomiting, hallucinations, tremulous, likely secondary to alcohol withdrawal. Patient is last drink was 3 days prior to admission. -wean Precedex infusion to off -continue Librium -continue thiamine folic acid -monitor liver function tests -[facility] protocol along with p.r.n. Ativan -Zofran for nausea and vomit -patient is on Keppra at home for withdrawal seizures which will continue (2) Hypertension: Code(s): I10 - Essential (primary) hypertension Status: Acute Assessment and Plan: Continue lisinopril (3) Depression with anxiety: Code(s): F41.8 - Other specified anxiety disorders Status: Acute Assessment and Plan: Continue buspirone, amitriptyline (4) Elevated liver enzymes: Code(s): R74.8 - Abnormal levels of other serum enzymes Status: Acute Assessment and Plan: Likely secondary to alcohol and hepatic steatosis Continue to monitor (5) Chronic pancreatitis: Code(s): K86.1 - Other chronic pancreatitis Status: Acute Assessment and Plan: Continue pancreatic enzyme/Creon, which is a home med Plan DVT prophylaxis: Lovenox Stress ulcer prophylaxis: On a diet Nutrition: Full liquid diet, will advance as tolerated Code Status: Full code Critical Care Time Spent: 43 minutes Due to a high probability of clinically significant, life threatening deterioration, the patient required my highest level of preparedness to intervene emergently and I personally spent this critical care time directly and personally managing the patient. This critical care time included obtaining a history; examining the patient; pulse oximetry; ordering and review of studies; arranging urgent treatment with development of a management plan; evaluation of patient's response to treatment; frequent reassessment; and discussions with other providers. It was exclusive of separately billable procedures and treating other patients and teaching time. Please see Assessment and Plan section and the rest of the note for further information on patient assessment and treatment [employer] Consult Note Consult date: 05/28/22 HPI: Niles Díaz is a 31 year old male with past medical history of alcohol withdrawal, alcoholism, elevated LFTs, erosive esophagitis, pancreatitis, thrombocytopenia, has had multiple admissions for alcohol intoxication and alcohol withdrawal with the last admission being on 03/19/2022 and 04/14/2022 presented the ED on 05/27/2022 with complains of symptoms of alcohol withdrawal. Patient has been complaining of nausea, vomiting, hallucinations periods stopped drinking 3 days prior to admission. Normally drinks vodka and other hard liquor. Patient presented with alcoholic ketoacidosis and elevated lactic acid. Elevated LFTs. Patient received IV fluids, Reglan, Ativan in the emergency room and was started on Precedex infusion and transferred to the ICU for further management. Patient also complained of visual hallucinations. Patient was also tremulous. Patient seen and examined the ICU, is awake, alert, oriented x3, nonfocal, assistive tremulous but no hallucination, unlimited denies any chest pain, shortness on breath, abdominal pain, nausea, vomiting at this time. Patient clinically stable, remains on Precedex, slightly bradycardic on room air with good O2 sats. Urine output has been adequate and patient has been afebrile. Remains on maintenance IV fluids Review of Systems Review of Systems: All systems reviewed & are unremarkable except as noted in HPI and below [facility] Past Medical History Medical History (Updated 05/28/22 @ 09:19 by Ana López MD) Alcohol withdrawal syndrome Alcoholism Depression with anxiety Elevate
[2022-05-28] MEDS: LIPASE/AMYLASE/PROTEASE 12,000 UNITS CAP 2 CAP PO ×3 (09:21→17:02)
[2022-05-28] MEDS: busPIRone HCL 10 MG TABLET PO ×3 (09:21→17:02)
[2022-05-28] MEDS: lisinopriL 10 MG TABLET PO (09:22)
[2022-05-28] MEDS: FOLIC ACID 1 MG TABLET PO (09:22)
[2022-05-28] MEDS: ENOXAPARIN 40 MG/0.4 ML SYRINGE SUB-Q (09:22)
[2022-05-28] MEDS: levETIRAcetam 500 MG TABLET PO ×2 (09:22→20:44)
[2022-05-28] MEDS: THIAMINE HCL 100 MG TABLET PO (09:22)
[2022-05-28] MEDS: GABAPENTIN 300 MG CAPSULE PO ×3 (09:22→17:02)
[2022-05-28] MEDS: dexmedeTOMIDine 400 MCG/100 ML 400 MCG/100 ML BAG IV CONT (09:24)
[2022-05-28 12:21] LABS: Glucose Point of Care 120 mg/dl (65-105)
[2022-05-28 17:52] LABS: Glucose Point of Care 126 mg/dl (65-105)
[2022-05-28] MEDS: IBUPROFEN 400 MG TABLET PO (20:43)
[2022-05-28] MEDS: FAMOTIDINE 20 MG TABLET PO (20:43)
[2022-05-28] MEDS: SODIUM CHLORIDE 0.9% IV 1,000 ML 75 ML IV CONT (23:13)
[2022-05-29] VITALS (13 sets, daily range): BP systolic 122–143; BP diastolic 64–101; PULSE 56–82; RESP 13–20; TEMP 35.9–36.8; O2SAT 97–100
[2022-05-29] MEDS: AMITRIPTYLINE HCL 25 MG TABLET BY MOUTH ×2 (00:01→23:35)
[2022-05-29] MEDS: chlordiazePOXIDE (*CRX) 25 MG CAPSULE 50 MG PO ×5 (00:01→23:36)
[2022-05-29 00:16] LABS: Glucose Point of Care 114 mg/dl (65-105)
[2022-05-29 04:17] LABS: Basophils Percent Auto 0.7 % (0.2-1.2); Eosinophils Absolute Auto 0.1 K/mm3 (0-0.3); Eosinophils Percent Auto 1.8 % (0-4.4); Hematocrit 35.2 % (42.0-52.0); Hemoglobin 12.1 g/dL (14.0-18.0); Immature Granulocyte Absolute 0.01 K/mm3 (0.00-0.031); Immature Granulocyte Percent A 0.2 % (0-0.5); Immature Platelet Fraction Pct 4.3 % (0.9-11.2); Lymphocytes Absolute Auto 1.77 K/mm3 (0.9-3.2); Lymphocytes Percent Auto 39.5 % (18.3-44.2); Mean Corpuscular HGB Conc 34.4 g/dl (32-36); Mean Corpuscular Volume 90.3 fl (80-100); Mean Platelet Volume 9.9 fl (7.4-10.4); Monocytes Absolute Auto 0.3 K/mm3 (0.1-0.6); Monocytes Percent Auto 6.7 % (2.6-8.5); Neutrophils Absolute Auto 2.3 K/mm3 (1.3-6.7); Neutrophils Percent Auto 51.1 % (45.5-73.1); Platelet Count Result 159 k/mm3 (150-375); Red Cell Distribution Width 12.4 % (11.5-14.5); White Blood Count 4.5 K/mm3 (4.5-10.0)
[2022-05-29 04:26] LABS: Alanine Aminotransferase 75 U/L (6-50); Albumin Level 3.6 g/dL (3.5-5.1); Alkaline Phosphatase 67 U/L (38-126); Anion Gap 5 mmol/L (8-16); Aspartate Amino Transferase 105 U/L (17-59); Bilirubin,Total 0.7 mg/dL (0.2-1.3); Blood Urea Nitrogen 8 mg/dL (9-20); Calcium 8.8 mg/dL (8.4-10.2); Carbon Dioxide 24 mmol/L (22-30); Chloride 107 mmol/L (98-107); Estimated CRCL calculation 135 ml/min; Estimated Glomerular Filt Rate > 60; Glucose 102 mg/dL (65-110); Magnesium 1.5 mg/dL (1.6-2.3); Phosphorus 2.3 mg/dL (2.5-4.5); Potassium 3.6 mmol/L (3.4-5.0); Sodium 136 mmol/L (137-145)
--- NOTE | 2022-05-29 08:45 | PM.IMPN ---
Progress Note: A&P Assessment and Plan (1) Alcohol abuse with withdrawal: Code(s): F10.139 - Alcohol abuse with withdrawal, unspecified Status: Acute Assessment and Plan: Continue daily thiamine, Precedex drip weaned off yesterday, continue Librium, anticipate discharge home tomorrow with Librium to wean at home (2) Hypertension: Code(s): I10 - Essential (primary) hypertension Status: Acute Assessment and Plan: Continue home lisinopril, monitor creatinine (3) Depression with anxiety: Code(s): F41.8 - Other specified anxiety disorders Status: Acute Assessment and Plan: Continue BuSpar (4) Elevated liver enzymes: Code(s): R74.8 - Abnormal levels of other serum enzymes Status: Acute Assessment and Plan: Secondary to alcohol intake, continue Creon Plan DVT prophylaxis with Lovenox GI prophylaxis on indicated Code status full code Subjective Date/time seen: 05/29/22 08:45 Interval history: Patient states he has been really working on not beating himself up for falling back and drinking. He thinks that when he feels the shame, he tends to drink more. He denies feeling tremulous. No hallucinations. No overnight events noted. No chest pain or shortness of breath. No nausea, vomiting or diarrhea. No fevers or chills. Review of Systems Review of Systems: 12 point review of systems was assessed and was negative except as noted in the HPI Exam Narrative: General: No acute distress, alert and oriented per baseline HEENT: Atraumatic, normocephalic, mucous membranes moist CV: Regular rate and rhythm, S1, S2 Lungs: Clear to auscultation bilaterally, no rales or crackles noted, no wheezes, good air entry Abdomen: Soft, nontender, nondistended Extremities: Normal to inspection Skin: No rashes noted, no lesions or wounds seen Psych: Euthymic, normal affect Neuro: Cranial nerves 2-12 grossly intact, strength +5/5 upper and lower extremities bilaterally Objective Data Vital Signs Vital Signs: Vital Signs - 24 hr 05/28/22 09:24 05/28/22 09:00 05/28/22 10:00 Temperature 97.9 F Pulse Rate 54 L 55 L 57 L Pulse Rate [Monitor] Respiratory Rate 17 20 Blood Pressure 128/88 128/93 H Pulse Oximetry 100 100 Oxygen Delivery 05/28/22 10:59 05/28/22 11:24 05/28/22 11:24 Temperature Pulse Rate 67 Pulse Rate [Monitor] 66 Respiratory Rate Blood Pressure 106/62 Pulse Oximetry Oxygen Delivery Room Air 05/28/22 12:00 05/28/22 12:00 05/28/22 14:00 Temperature 98 F Pulse Rate 81 61 80 Pulse Rate [Monitor] Respiratory Rate 20 Blood Pressure 110/71 Pulse Oximetry 98 Oxygen Delivery 05/28/22 14:00 05/28/22 15:40 05/28/22 15:40 Temperature Pulse Rate 69 65 Pulse Rate [Monitor] 65 Respiratory Rate 22 H 19 Blood Pressure 118/84 112/74 Pulse Oximetry 100 99 Oxygen Delivery Room Air 05/28/22 15:40 05/28/22 16:00 05/28/22 17:44 Temperature 97.8 F Pulse Rate 66 64 61 Pulse Rate [Monitor] Respiratory Rate 20 Blood Pressure 112/74 Pulse Oximetry 99 Oxygen Delivery 05/28/22 17:44 05/28/22 20:00 05/28/22 20:00 Temperature 98.4 F 98.4 F Pulse Rate 65 71 Pulse Rate [Monitor] Respiratory Rate 22 H 16 Blood Pressure 119/85 138/95 H Pulse Oximetry 100 100 Oxygen Delivery Room Air 05/28/22 20:00 05/28/22 21:38 05/28/22 20:00 Temperature Pulse Rate 68 Pulse Rate [Monitor] 71 Respiratory Rate Blood Pressure 138/95 H Pulse Oximetry 100 Oxygen Delivery Room Air 05/28/22 22:00 05/28/22 22:00 05/29/22 00:00 Temperature 98.2 F Pulse Rate 80 80 65 Pulse Rate [Monitor] Respiratory Rate 25 H 20 Blood Pressure 152/97 H 140/64 Pulse Oximetry 98 100 Oxygen Delivery 05/29/22 00:00 05/29/22 00:00 05/29/22 00:00 Temperature Pulse Rate 82 Pulse Rate [Monitor] 65 Respiratory Rate Blood Pressure 140/6
[2022-05-29] MEDS: POTASSIUM PHOS/SODIUM PHOS 250 MG TABLET PO (09:06)
[2022-05-29] MEDS: MAGNESIUM SULF 2 GM/WATER 50ML 2 GM/50 ML BAG IVPB (09:06)
[2022-05-29] MEDS: FOLIC ACID 1 MG TABLET PO (09:07)
[2022-05-29] MEDS: lisinopriL 10 MG TABLET PO (09:07)
[2022-05-29] MEDS: busPIRone HCL 10 MG TABLET PO ×3 (09:07→17:12)
[2022-05-29] MEDS: FAMOTIDINE 20 MG TABLET PO ×2 (09:07→21:00)
[2022-05-29] MEDS: GABAPENTIN 300 MG CAPSULE PO ×3 (09:07→17:12)
[2022-05-29] MEDS: THIAMINE HCL 100 MG TABLET PO (09:07)
[2022-05-29] MEDS: levETIRAcetam 500 MG TABLET PO ×2 (09:07→20:15)
[2022-05-29] MEDS: LIPASE/AMYLASE/PROTEASE 12,000 UNITS CAP 2 CAP PO ×3 (09:07→17:12)
[2022-05-29] MEDS: ENOXAPARIN 40 MG/0.4 ML SYRINGE SUB-Q (09:08)
--- NOTE | 2022-05-29 09:22 | WPDINTPN ---
Progress Note: A&P Assessment and Plan (1) Alcohol abuse with withdrawal: Code(s): F10.139 - Alcohol abuse with withdrawal, unspecified Status: Acute Assessment and Plan: Patient presented to the hospital with nausea, vomiting, hallucinations, tremulous, likely secondary to alcohol withdrawal. Patient is last drink was 3 days prior to admission. -OFF Precedex since 05/28/2022 afternoon -continue Librium -continue thiamine folic acid -monitor liver function tests -[facility] protocol along with p.r.n. Ativan -Zofran for nausea and vomit -patient is on Keppra at home for withdrawal seizures which will continue -will discontinue IV fluids (2) Hypertension: Code(s): I10 - Essential (primary) hypertension Status: Acute Assessment and Plan: Continue lisinopril -blood pressures are stable (3) Depression with anxiety: Code(s): F41.8 - Other specified anxiety disorders Status: Acute Assessment and Plan: Continue buspirone, amitriptyline (4) Elevated liver enzymes: Code(s): R74.8 - Abnormal levels of other serum enzymes Status: Acute Assessment and Plan: Likely secondary to alcohol and hepatic steatosis Continue to monitor (5) Chronic pancreatitis: Code(s): K86.1 - Other chronic pancreatitis Status: Acute Assessment and Plan: Continue pancreatic enzyme/Creon, which is a home med Plan DVT prophylaxis: Lovenox Stress ulcer prophylaxis: On a diet Nutrition: Tolerating p.o. diet Code Status: Full code Critical Care Time Spent: 31minutes Due to a high probability of clinically significant, life threatening deterioration, the patient required my highest level of preparedness to intervene emergently and I personally spent this critical care time directly and personally managing the patient. This critical care time included obtaining a history; examining the patient; pulse oximetry; ordering and review of studies; arranging urgent treatment with development of a management plan; evaluation of patient's response to treatment; frequent reassessment; and discussions with other providers. It was exclusive of separately billable procedures and treating other patients and teaching time. Please see Assessment and Plan section and the rest of the note for further information on patient assessment and treatment Subjective Date/time seen: 05/29/22 09:22 Interval history: Reason for consult: Alcohol abuse with withdrawal, essential hypertension, elevated liver enzymes 05/29/2022: Patient seen and examined in the ICU. Remains awake, alert, oriented x3. Patient is off Precedex infusion since yesterday afternoon. Is calm, minimal tremors, denies any shortness of breath, chest pain, abdominal pain, nausea, vomiting. Hemodynamically stable, adequate urine output, tolerating p.o. diet Review of Systems Review of Systems: All systems reviewed & are unremarkable except as noted in HPI and below Exam Narrative: General: Patient is sitting up in bed, in no acute distress HEENT:? Pupils equal and reactive, sclera is clear, moist oral mucosa, no erythema of the posterior pharynx Neck:? Supple, no cervical lymphadenopathy Respiratory:? Clear to auscultation bilaterally, no wheezing, adequate air entry Cardiac:? S1-S2 is normal, patient is bradycardic Abdomen:? Soft, nontender, nondistended, normoactive bowel sounds Extremities:? No edema, Neuro:? Patient is awake, alert, oriented x3. Tremors noted on upper extremity bilaterally Skin:? Warm and dry Psych:? Normal affect and mentation Objective Data Vital Signs Vital Signs: Vital Signs - 24 hr 05/28/22 09:24 05/28/22 10:00 05/28/22 10:59 Temperature Pulse Rate 54 L 57 L 67 Pulse Rate [Monitor] Respiratory Rate 20 Blood Pressure 128/93 H Pulse Oximetry 100 Oxygen Delivery 05/28/22 11:24 05/28/22 11:24 05/28/22 12:00 Temperature 98 F Pulse Rate 81 Pulse Rate [Monitor
--- NOTE | 2022-05-29 11:50 | PC.NURSE ---
This patient, Niles Díaz, was transferred to [facility] on 05/29/22 at 1150. Personal belongings sent with patient. Report given to DARIA Abraham. Appropriate documentation sent with patient.
[2022-05-29] MEDS: IBUPROFEN 400 MG TABLET PO (17:12)
[2022-05-30] VITALS: PULSE 66
[2022-05-30 04:00] VITALS: PULSE 52
[2022-05-30 05:30] VITALS: BP 133/94; PULSE 60; RESP 18; TEMP 36.4; O2SAT 100
[2022-05-30] MEDS: chlordiazePOXIDE (*CRX) 25 MG CAPSULE 50 MG PO (06:06)
[2022-05-30 08:00] VITALS: PULSE 70
[2022-05-30] MEDS: LIPASE/AMYLASE/PROTEASE 12,000 UNITS CAP 2 CAP PO (08:55)
[2022-05-30] MEDS: busPIRone HCL 10 MG TABLET PO (08:56)
[2022-05-30] MEDS: ENOXAPARIN 40 MG/0.4 ML SYRINGE SUB-Q (08:56)
[2022-05-30] MEDS: FAMOTIDINE 20 MG TABLET PO (08:56)
[2022-05-30] MEDS: FOLIC ACID 1 MG TABLET PO (08:56)
[2022-05-30] MEDS: GABAPENTIN 300 MG CAPSULE PO (08:56)
[2022-05-30] MEDS: levETIRAcetam 500 MG TABLET PO (08:57)
[2022-05-30] MEDS: THIAMINE HCL 100 MG TABLET PO (08:57)
[2022-05-30] MEDS: lisinopriL 10 MG TABLET PO (08:57)
--- NOTE | 2022-05-30 10:52 | PM.DS ---
DS: Admitting Diagnosis Discharge Date May 30, 2022 Admitting Diagnosis Alcohol withdrawal DS: Discharge Diagnosis Discharge Diagnosis (1) Alcohol abuse with withdrawal: Code(s): F10.139 - Alcohol abuse with withdrawal, unspecified Status: Acute Assessment and Plan: Continue daily thiamine, Precedex drip weaned off yesterday, continue Librium, anticipate discharge home tomorrow with Librium to wean at home (2) Hypertension: Code(s): I10 - Essential (primary) hypertension Status: Acute Assessment and Plan: Continue home lisinopril, monitor creatinine (3) Depression with anxiety: Code(s): F41.8 - Other specified anxiety disorders Status: Acute Assessment and Plan: Continue BuSpar (4) Elevated liver enzymes: Code(s): R74.8 - Abnormal levels of other serum enzymes Status: Acute Assessment and Plan: Secondary to alcohol intake, continue Creon Plan DVT prophylaxis with Lovenox GI prophylaxis on indicated Code status full code DS: Summary Hospital Course Hospital Course: 31-year-old male patient who has a history of alcohol abuse.? The patient has been here multiple times for alcohol withdrawal.? The patient came to the emergency room earlier this morning but then went home after declining stay.? The patient then came back this afternoon because of worsening nausea and vomiting due to alcohol withdrawal.? The patient stated that he had quit drinking and started drinking again approximately 3 days ago.? He said he drinks vodka with other liquor.? He said he had his last drink last night.? His anion gap is 22.? Earlier his lactic acid was 4.5.? AST is 90 and ALT is 85.? The patient was given IV fluids, Reglan, and Ativan in the emergency room.? Patient was ordered a Precedex drip and started when he came to the ICU.? The patient said he was seeing things earlier that were not there.? He is starting to feel somewhat shaky and having some abdominal pain with nausea. Patient admitted to the ICU, on Precedex drip. CIWAs were monitored. He did have elevated LFTs. He was slowly weaned off of the Precedex drip and placed on Librium. All symptoms resolved. CIWA was consistently less than 2. He was discharged on a Librium taper with close outpatient follow-up by his family doctor and multiple resources for rehab facilities. Time Spent with Patient Time attestation: Total time spent providing and/or coordinating discharge services: Exam Narrative: General: No acute distress, alert and oriented per baseline HEENT: Atraumatic, normocephalic, mucous membranes moist CV: Regular rate and rhythm, S1, S2 Lungs: Clear to auscultation bilaterally, no rales or crackles noted, no wheezes, good air entry Abdomen: Soft, nontender, nondistended Extremities: Normal to inspection Skin: No rashes noted, no lesions or wounds seen Psych: Euthymic, normal affect Neuro: Cranial nerves 2-12 grossly intact, strength +5/5 upper and lower extremities bilaterally Discharge Plan Discharge Attending physician on discharge: Tiny Stephens Consulting providers: Ana López Discharging Clinician: Tiny Stephens Patient Disposition: Home, Self-Care Activity: as tolerated Diet: as tolerated Discharge Instructions: Avoid alcohol. Work on stress management and alternative coping skills to avoid relapsing. If you do relapse, work on being kind to yourself, forgiving your mistake, and immediately get back to making a different choice. Make a list of all the things you enjoy doing instead of drinking and avoid doing all the things that trigger drinking. You've got this. Patient Instructions: Antibiotic Form, How to Stop Smoking (DC), Cigarette Smoking and Your Health (GEN) Stand Alone Forms: General Discharge Information Follow-up/Referrals: PHYSICIAN NOT ON STAFF,NONSTAFF [Primary Care Provider] - Discharge Medications: Continued levetirac
[2022-05-30 12:00] VITALS: PULSE 85
== END 2022-05-30 12:45 | disposition home or self-care (01) | DRG 897 ==
LOC: ANHED 15:21 → ANHICU 17:08 → ANH3MED 05-29 11:56
PROVIDERS: Internal Medicine; Nurse Practitioner; Admitting Provider Chiropractor; Emergency Provider Emergency Medicine; Visit Provider Student in an Organized Health Care Education/Training Program
DX: F10.232 Alcohol dependence with withdrawal with perceptual disturbance (principal); K86.1 Other chronic pancreatitis; I10 Essential (primary) hypertension; F41.8 Other specified anxiety disorders; R74.8 Abnormal levels of other serum enzymes; E83.42 Hypomagnesemia; F17.210 Nicotine dependence, cigarettes, uncomplicated; K76.0 Fatty (change of) liver, not elsewhere classified; K70.9 Alcoholic liver disease, unspecified; Z90.5 Acquired absence of kidney
CPT/HCPCS: 36415; 80053; 80307; 82728; 82948; 83690; 83735; 84100; 84443; 85025; 85055; 96361; 96374; 96375; 99285; A9270; J1650; J2060; J2405; J2765; J3475; J7030

== ENCOUNTER 2022-06-22 01:06 | Day surgery (SDC) | payer BC, SELFPAY ==
[2022-06-08 12:02] VITALS: BMI 23.2
[2022-06-22 06:15] VITALS: BP 139/93; PULSE 83; RESP 18; TEMP 36.6; O2SAT 100; BMI 25.9
[2022-06-22] MEDS: LACTATED RINGERS 1,000 ML 150 ML IV CONT (06:39)
--- NOTE | 2022-06-22 07:24 | PM.HPGS ---
History of Present Illness History of Present Illness Consent: Risks, benefits, and alternatives have been discussed and questions answered. Patient agrees to proceed with procedure. Chief complaint: gastritis, esophagitis Narrative: Niles Díaz is a 31 year old male with erosive esophagitis, alcoholism and recent pancreatitis. Review of Systems Constitutional: Constitutional: Denies headache(s) and Denies weakness Eyes: Eyes: Denies blurry vision ENT: Reports Normal hearing present, Denies headache(s) and Denies neck pain Cardiovascular: Cardiovascular: Denies chest pain and Denies dyspnea Respiratory: Respiratory: Denies dyspnea Gastrointestinal: Gastrointestinal: Reports no additional gastrointestinal complaints Genitourinary: Genitourinary: Denies dysuria Musculoskeletal: Musculoskeletal: Denies neck pain Integumentary/Breasts: Skin/Breast: Denies dry skin Neurologic: Reports Normal hearing present, Denies headache(s) and Denies weakness Psychiatric: Psychiatric: Denies anxiety Endocrine: Endocrine: Denies change in body appearance Hematologic/Lymphatic: Hematologic/Lymphatic: Denies easy bleeding Allergic/Immunologic: Allergic/Immunologic: Denies urticaria PMFSH Past Medical History Medical History (Updated 06/22/22 @ 07:25 by Travis Day MD) Alcohol withdrawal syndrome Alcoholism Depression with anxiety Elevated LFTs Erosive esophagitis Head injury Hypomagnesemia Leukopenia Thrombocytopenia Surgical History Surgical History History of nephrectomy Family History Family History Father Diabetes mellitus Hypertension Grandparent Family history of cardiovascular disease Social History Social History (Updated 05/27/22 @ 18:46 by Elisa Sarmiento NP) Social History: 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 His mother Molly will be his surrogate, and he wishes to be a full code. 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 blood products: Yes Meds Home Medications and Allergies Home Medications Medication Instructions Recorded Confirmed Type buspirone 10 mg tablet 10 mg PO TID 01/17/22 06/22/22 History chlordiazepoxide HCl 25 mg capsule 25 mg PO Q6H PRN Alcohol Withdrawal 01/17/22 06/22/22 History folic acid 1 mg tablet 1 mg PO DAILY 01/17/22 06/22/22 History gabapentin 300 mg capsule 300 mg PO TID 01/17/22 06/22/22 History levetiracetam 500 mg tablet 500 mg PO BID 01/17/22 06/22/22 History amitriptyline 50 mg tablet See Rx Instructions .Route 01/20/22 06/22/22 History .COMPLEX PRN Agitation thiamine HCl (vitamin B1) 100 mg 100 mg PO QAM #30 tabs 01/21/22 06/22/22 Rx tablet (Vitamin B-1) [id number] 2 cap PO TIDWM 30 days #180 caps 04/19/22 06/22/22 Rx 12,000-38,000-60,000 unit capsule,delayed rel (Creon) olanzapine 5 mg tablet 5 mg PRN PRN Anxiety 05/27/22 06/22/22 History Allergies Allergy/AdvReac Type Severity Reaction Status Date / Time Penicillins Allergy Unknown Hives Verified 06/22/22 06:26 Vital Signs V
--- NOTE | 2022-06-22 07:28 | WPDANESEPPF ---
Anes - Initial Pre Proc Eval Procedure: Operation Date: 06/22/22 07:30 Proposed Procedures p Esophagogastroduodenoscopy - Travis Day MD Date/Time: 06/22/22 07:28 Surgeon: Travis Day MD Pre Op Diagnosis: gastritis, esophagitis Patient Data Age: 31 Gender: M Height: 1.88 m Weight: 91.5 kg Last Vital Signs Temp 97.9 F 06/22/22 06:15 Pulse 83 06/22/22 06:15 Resp 18 06/22/22 06:15 BP 139/93 H 06/22/22 06:15 Pulse Ox 100 06/22/22 06:15 O2 Del Method Room Air 06/22/22 06:15 Allergies Allergy/AdvReac Type Severity Reaction Status Date / Time Penicillins Allergy Unknown Hives Verified 06/22/22 06:26 Home Medications Medication Instructions Recorded Confirmed Type buspirone 10 mg tablet 10 mg PO TID 01/17/22 06/22/22 History chlordiazepoxide HCl 25 mg capsule 25 mg PO Q6H PRN Alcohol Withdrawal 01/17/22 06/22/22 History folic acid 1 mg tablet 1 mg PO DAILY 01/17/22 06/22/22 History gabapentin 300 mg capsule 300 mg PO TID 01/17/22 06/22/22 History levetiracetam 500 mg tablet 500 mg PO BID 01/17/22 06/22/22 History amitriptyline 50 mg tablet See Rx Instructions .Route 01/20/22 06/22/22 History .COMPLEX PRN Agitation thiamine HCl (vitamin B1) 100 mg 100 mg PO QAM #30 tabs 01/21/22 06/22/22 Rx tablet (Vitamin B-1) [id number] 2 cap PO TIDWM 30 days #180 caps 04/19/22 06/22/22 Rx 12,000-38,000-60,000 unit capsule,delayed rel (Creon) olanzapine 5 mg tablet 5 mg PRN PRN Anxiety 05/27/22 06/22/22 History Patient hx anesthesia problems: none Family hx anesthesia problems: none Results Review: All pre-operative results and documents have been reviewed as part of the pre-operative evaluation. 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 His mother Molly will be his surrogate, and he wishes to be a full code. 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 blood products: Yes Anes - Eval Final PreProcedure Day of Procedure 06/22/22 07:28 Patient weight: normal Heart: regular rate and rhythm Lungs: clear to auscultation Airway: Mallampati scale class II Neurological: alert and oriented Last oral intake: >/= 8 hours ASA classification: III Emergent: no Anesthetic plan: proceed Anesthesia type and monitoring: general GIVS and standard monitoring Results Review: All pre-operative results and documents have been reviewed as part of the pre-operative evaluation. Informed Consent:
[2022-06-22 07:45] VITALS: BP 129/90; PULSE 95; RESP 21; O2SAT 98
[2022-06-22 07:55] VITALS: BP 127/94; PULSE 86; RESP 13; O2SAT 100
[2022-06-22 08:05] VITALS: BP 131/94; PULSE 91; RESP 21; O2SAT 99
== END 2022-06-22 08:14 | disposition home or self-care (01) ==
PROVIDERS: Visit Provider Internal Medicine Gastroenterology
PROC: 0DJ08ZZ Inspection of Upper Intestinal Tract, Via Natural or Artificial Opening Endoscopic (ICD-10-PCS; CPT 43235; principal; 2022-06-22 07:30)
DX: K21.9 Gastro-esophageal reflux disease without esophagitis (principal); Z87.19 Personal history of other diseases of the digestive system; F41.8 Other specified anxiety disorders; Z90.5 Acquired absence of kidney; F17.210 Nicotine dependence, cigarettes, uncomplicated; F10.20 Alcohol dependence, uncomplicated
CPT/HCPCS: 43235; J2704; J3010; J7120

== ENCOUNTER 2022-06-23 14:53 | Observation (INO) | payer BC, SELFPAY ==
[2022-06-23 15:10] VITALS: BP 151/90; PULSE 118; RESP 16; TEMP 36.6; O2SAT 98
[2022-06-23 16:17] LABS: Basophils Absolute Auto 0.1 K/mm3 (0.0-0.1); Basophils Percent Auto 1.2 % (0.2-1.2); Eosinophils Absolute Auto 0.1 K/mm3 (0-0.3); Hemoglobin 14.5 g/dL (14.0-18.0); Immature Granulocyte Absolute 0.02 K/mm3 (0.00-0.031); Immature Granulocyte Percent A 0.4 % (0-0.5); Lymphocytes Absolute Auto 2.53 K/mm3 (0.9-3.2); Lymphocytes Percent Auto 51.2 % (18.3-44.2); Mean Corpuscular HGB Conc 35.4 g/dl (32-36); Mean Corpuscular Hemoglobin 30.9 pg (26-34); Mean Corpuscular Volume 87.4 fl (80-100); Mean Platelet Volume 9.8 fl (7.4-10.4); Monocytes Absolute Auto 0.3 K/mm3 (0.1-0.6); Monocytes Percent Auto 5.5 % (2.6-8.5); Neutrophils Percent Auto 40.7 % (45.5-73.1); Platelet Count Result 191 k/mm3 (150-375); Red Blood Count 4.69 M/mm3 (4.6-6.20); Red Cell Distribution Width 12.8 % (11.5-14.5); White Blood Count 4.9 K/mm3 (4.5-10.0)
[2022-06-23 16:18] LABS: Appearance Urine Clear (Clear); Bilirubin Urine Negative (Negative); Blood Urine Negative (Negative); Color Urine Light Yellow (Yellow); Glucose Urine UA Negative (Negative); Ketones Urine Negative (Negative); Leukocyte Esterase Ur Negative LEU/UL (Negative); Nitrate Urine Negative (Negative); Protein Urine 1+ mg/dL (Negative); Urobilinogen Urine 0.2 mg/dL (<2.0)
[2022-06-23 16:23] LABS: Bacteria Urine Trace /hpf; Mucus Urine Rare /lpf; RBC Urine 0-2 /hpf (0-2); Squamous Epithelial Cell Urine Rare /hpf (Few); WBC Urine 0-3 /hpf
[2022-06-23 16:26] LABS: Add Urine Microscopic? YES
[2022-06-23 16:30] LABS: Ethanol 256 mg/dL (<10)
[2022-06-23 16:31] LABS: Alanine Aminotransferase 50 U/L (6-50); Albumin Level 5.3 g/dL (3.5-5.1); Alkaline Phosphatase 65 U/L (38-126); Anion Gap 21 mmol/L (8-16); Aspartate Amino Transferase 45 U/L (17-59); Bilirubin,Total 0.4 mg/dL (0.2-1.3); Blood Urea Nitrogen 8 mg/dL (9-20); Calcium 9.5 mg/dL (8.4-10.2); Carbon Dioxide 21 mmol/L (22-30); Chloride 104 mmol/L (98-107); Estimated CRCL calculation 121 ml/min; Estimated Glomerular Filt Rate > 60; Glucose 99 mg/dL (65-110); Potassium 3.8 mmol/L (3.4-5.0); Sodium 146 mmol/L (137-145)
[2022-06-23 16:43] LABS: Amphetamine Screen Urine Negative (Negative); Barbiturate Screen Urine Negative (Negative); Benzodiazepines Screen Urine Positive (Negative); Cannabinoid Screen Urine Negative (Negative); Cocaine Screen Urine Negative (Negative); Methadone Screen Urine Negative (Negative); Opiate Screen Urine Negative (Negative); Phencyclidine Screen Urine Negative (Negative)
[2022-06-23 16:55] VITALS: PULSE 89; RESP 12; O2SAT 99
--- NOTE | 2022-06-23 16:55 | PC.NURSE ---
Pt reports ETOH rehab requiring medical detox before admission
[2022-06-23 17:00] VITALS: BP 149/93; PULSE 97; RESP 20; O2SAT 96
[2022-06-23 17:01] LABS: Thyroid Stimulating Hormone 0.927 uIU/mL (0.465-4.680)
--- NOTE | 2022-06-23 17:02 | ED.GENADULT ---
HPI - General Adult General Chief complaint: Alcohol <Valeria Pelletier PA-C - Last Filed: 06/23/22 20:54> Stated complaint: detox from alcohol <Valeria Pelletier PA-C - Last Filed: 06/23/22 20:54> Time Seen by Provider: 06/23/22 16:54 <Valeria Pelletier PA-C - Last Filed: 06/23/22 20:54> History of Present Illness HPI narrative: Patient is a 31-year-old male with history of alcohol abuse with history of withdrawal seizures here for detox . Patient states that he presented to enroll in an inpatient detox center yesterday, and was told to come to the emergency department because he has a history of withdrawal seizures. He was told he had to be admitted for this; patient has been admitted several times in past in ICU on Precedex drip. Patient is currently asymptomatic. His last drink was about 7 hours ago and was a pint of whiskey. He denies any abdominal pain, symptoms of withdrawal, exam, vomiting, nausea, fevers or chills. No suicidal or homicidal ideation. <Valeria Pelletier PA-C - Last Filed: 06/23/22 20:54> Related Data Home medications: Home Medications Medication Instructions Recorded Confirmed buspirone 10 mg tablet 10 mg PO TID 01/17/22 06/23/22 chlordiazepoxide HCl 25 mg capsule 25 mg PO Q6H PRN Alcohol Withdrawal 01/17/22 06/23/22 folic acid 1 mg tablet 1 mg PO DAILY 01/17/22 06/23/22 gabapentin 300 mg capsule 300 mg PO TID 01/17/22 06/23/22 levetiracetam 500 mg tablet 500 mg PO BID 01/17/22 06/23/22 amitriptyline 50 mg tablet 100 mg PO HS 01/20/22 06/23/22 olanzapine 5 mg tablet 5 mg HS PRN Anxiety 05/27/22 06/23/22 <DELIA Schrader Last Filed: 06/23/22 20:54> Allergies/adverse reactions: Allergies Allergy/AdvReac Type Severity Reaction Status Date / Time Penicillins Allergy Unknown Hives Verified 06/23/22 17:19 <Valeria Pelletier PA-C - Last Filed: 06/23/22 20:54> Review of Systems Review of Systems: Gen: Denies fevers or chills Eyes: Denies eye pain or visual change ENT: Denies congestion Respiratory: Denies shortness of breath or cough CV: Denies chest pain or palpitations GI: Denies abdominal pain nausea, emesis or diarrhea : denies burning, urgency, frequency or hematuria Musculoskeletal: Denies back pain or muscle pain Neuro: Denies numbness, tingling, weakness or focal weakness Skin: Denies rash Except as documented, all other systems reviewed and negative <DELIA Schrader Last Filed: 06/23/22 20:54> [facility] Past Medical History Medical History: Medical History Alcohol withdrawal syndrome Alcoholism Depression with anxiety Elevated LFTs Erosive esophagitis Head injury Hypomagnesemia Leukopenia Thrombocytopenia <Valeria Pelletier PA-C - Last Filed: 06/23/22 20:54> Surgical History Surgical History: Surgical History History of nephrectomy <Valeria Pelletier PA-C - Last Filed: 06/23/22 20:54> Family History Family History: Family History Father Diabetes mellitus Hypertension Grandparent Family history of cardiovascular disease <Valeria Pelletier PA-C - Last Filed: 06/23/22 20:54> Social History Social History: Social History (Updated 06/23/22 @ 23:41 by Elisa Sarmiento NP) Social History: 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 His mother Molly will be his surrogate. 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 Smoking packs per day: 0.5 Smoking cigarettes per day: 10.0 Years smoked: 10 Smoking pack-years: 5.00 Smoking status: Current some day smoker Second hand tobacco smoke exposure: Yes Additional smoking assessment comments: 1 pack every 1 weeks Alcohol intake: current Drinks per
[2022-06-23] MEDS: LACTATED RINGERS 1,000 ML 999 ML IV CONT (17:19)
[2022-06-23 17:32] LABS: Lactic Acid Reflex 1.4 mmol/L (0.7-2.0)
[2022-06-23 17:35] LABS: Magnesium 1.9 mg/dL (1.6-2.3); Phosphorus 3.7 mg/dL (2.5-4.5)
[2022-06-23 17:56] VITALS: BP 149/93
[2022-06-23 18:53] LABS: SARS-CoV-2 RNA PCR Negative
[2022-06-23 20:00] VITALS: BP 149/93
[2022-06-23] MEDS: LORazepam INJ (*CRX) 2 MG/ML VIAL IV PUSH (20:56)
--- NOTE | 2022-06-23 22:30 | ADMGEN ---
This patient, Niles Díaz, was admitted to Virtual Bed 3rd Floor-1. Patient/family oriented to hospital policies and general routines including ID bracelet, bed and alarms, visiting hours, pain management, procedures, bathroom and other care routines, personal items, smoking policy, room service/diet, and visiting hours. Information on how to activate the Rapid Response Team has been discussed. Patient/Family are encouraged to report perceived risks to care and to ask questions if they do not understand what they are told or what they should do.
[2022-06-23 22:49] VITALS: BMI 26.6
--- NOTE | 2022-06-23 23:32 | PM.IMHP ---
H&P: HPI History of Present Illness Date/Time: 06/23/22 23:32 Chief Complaint: Detox from alcohol Narrative: this is a 31-year-old male patient who has been admitted to this hospital multiple times for alcohol withdrawal. The patient was recently discharged from this facility on 05/30/2022 for alcohol withdrawal. The patient had been on a Precedex drip at that time. The patient had been discharged home to [facility]. The patient tells me that he started drinking again approximately 2 weeks ago. He stated that he had lost a Librium. He stated that he left the Librium in his pants pocket and they got thrown in the wash. The patient stated that he presented to enroll in an inpatient detox facility and they discover that he had been drinking again. They told him that he had to be admitted to a detox program before he could go to the rehab facility. The patient still has some hand tremors. The patient drinks a pt of whiskey a day for the last 2 week. Patient's tox screen was positive for benzos. His alcohol levels 256 upon arrival to ER. I spoke with my collaborative Dr. Montero who decided that we need to admit the patient as he has been on Precedex drip several times in the past. The patient was given IV fluids in the emergency room. The patient has a history of having withdrawal seizures. The patient is being admitted to inpatient status on the date of service of 06/23/2022. Review of Systems Review of Systems: See HPI All systems reviewed & are unremarkable except as noted in HPI and below Constitutional: Constitutional: Reports as per HPI and Reports no additional constitutional complaints Eyes: Eyes: Reports as per HPI and Reports no additional eye complaints ENT: Reports system reviewed and no additional complaints, except as documented and Reports Normal hearing present Cardiovascular: Cardiovascular: Reports no additional cardiovascular complaints Respiratory: Respiratory: Reports no additional respiratory complaints and Reports no additional respiratory complaints Gastrointestinal: Gastrointestinal: Reports as per HPI and Reports no additional gastrointestinal complaints Musculoskeletal: Musculoskeletal: Reports no additional musculoskeletal complaints Integumentary/Breasts: Skin/Breast: Reports system reviewed and no additional complaints, except as docu and Reports as per HPI Neurologic: Reports system reviewed and no additional complaints, except as documented, Reports as per HPI and Reports Normal hearing present Psychiatric: Psychiatric: Reports no additional psychiatric complaints and Reports as per HPI Endocrine: Endocrine: Reports no additional endocrine complaints Hematologic/Lymphatic: Hematologic/Lymphatic: Reports no additional hematologic/lymphatic complaints Allergic/Immunologic: Allergic/Immunologic: Reports no additional allergic/immunologic complaints [facility] Past Medical History Medical History Alcohol withdrawal syndrome Alcoholism Depression with anxiety Elevated LFTs Erosive esophagitis Head injury Hypomagnesemia Leukopenia Thrombocytopenia Surgical History Surgical History History of nephrectomy Family History Family History Father Diabetes mellitus Hypertension Grandparent Family history of cardiovascular disease Social History Social History (Updated 06/23/22 @ 23:41 by Elisa Sarmiento NP) Social History: 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 His mother Molly will be his surrogate. 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 Smoking packs per day: 0.5 Smoking cigarettes per day: 10.0 Years smoked: 10 Smoking pack-years: 5.00 Smoking status: Current some day smoker Second hand tobacco smoke exposure: Yes
[2022-06-24] VITALS: BP 149/93
[2022-06-24 00:09] LABS: Glucose Point of Care 114 mg/dl (65-105)
[2022-06-24] MEDS: GABAPENTIN 300 MG CAPSULE PO ×4 (00:23→17:01)
[2022-06-24] MEDS: busPIRone HCL 10 MG TABLET PO ×4 (00:24→17:01)
[2022-06-24] MEDS: levETIRAcetam 500 MG TABLET PO ×3 (00:24→17:01)
[2022-06-24] MEDS: AMITRIPTYLINE HCL 25 MG TABLET 100 MG PO ×2 (00:24→23:10)
[2022-06-24] MEDS: chlordiazePOXIDE (*CRX) 25 MG CAPSULE 50 MG PO ×5 (00:28→23:09)
[2022-06-24] MEDS: DEXTROSE 5%/0.45% SOD CHL 1,000 ML 125 ML IV CONT ×2 (00:28→08:45)
[2022-06-24 04:00] VITALS: BP 149/93
[2022-06-24 06:00] VITALS: BP 133/95; PULSE 88; RESP 16; TEMP 36.9; O2SAT 98
[2022-06-24 06:04] LABS: Basophils Absolute Auto 0.1 K/mm3 (0.0-0.1); Eosinophils Absolute Auto 0.1 K/mm3 (0-0.3); Eosinophils Percent Auto 2.2 % (0-4.4); Hemoglobin 13.8 g/dL (14.0-18.0); Immature Granulocyte Absolute 0.02 K/mm3 (0.00-0.031); Immature Granulocyte Percent A 0.4 % (0-0.5); Lymphocytes Absolute Auto 2.73 K/mm3 (0.9-3.2); Lymphocytes Percent Auto 54.7 % (18.3-44.2); Mean Corpuscular HGB Conc 35.4 g/dl (32-36); Mean Corpuscular Volume 87.6 fl (80-100); Mean Platelet Volume 10.1 fl (7.4-10.4); Monocytes Absolute Auto 0.4 K/mm3 (0.1-0.6); Monocytes Percent Auto 7.6 % (2.6-8.5); Neutrophils Absolute Auto 1.7 K/mm3 (1.3-6.7); Neutrophils Percent Auto 34.1 % (45.5-73.1); Platelet Count Result 164 k/mm3 (150-375); Red Blood Count 4.45 M/mm3 (4.6-6.20); Red Cell Distribution Width 12.7 % (11.5-14.5)
[2022-06-24 06:18] LABS: Alanine Aminotransferase 43 U/L (6-50); Albumin Level 4.4 g/dL (3.5-5.1); Alkaline Phosphatase 59 U/L (38-126); Anion Gap 12 mmol/L (8-16); Aspartate Amino Transferase 44 U/L (17-59); Bilirubin,Total 0.9 mg/dL (0.2-1.3); Blood Urea Nitrogen 8 mg/dL (9-20); CRP < 0.5 mg/dL (<1.0); Calcium 8.9 mg/dL (8.4-10.2); Carbon Dioxide 24 mmol/L (22-30); Chloride 102 mmol/L (98-107); Creatine Kinase 91 U/L (55-170); Estimated CRCL calculation 135 ml/min; Estimated Glomerular Filt Rate > 60; Glucose 92 mg/dL (65-110); Lactate Dehydrogenase 154 U/L (120-246); Lipase 71 U/L (23-300); Magnesium 1.5 mg/dL (1.6-2.3); Potassium 3.5 mmol/L (3.4-5.0); Sodium 138 mmol/L (137-145)
[2022-06-24 06:20] LABS: Lactic Acid Reflex 1.5 mmol/L (0.7-2.0)
[2022-06-24 06:25] LABS: Glucose Point of Care 107 mg/dl (65-105)
[2022-06-24] MEDS: FOLIC ACID 1 MG TABLET PO (08:37)
[2022-06-24] MEDS: LIPASE/AMYLASE/PROTEASE 12,000 UNITS CAP 2 CAP PO ×3 (08:37→17:01)
[2022-06-24] MEDS: THIAMINE HCL 200 MG/2 ML VIAL 100 MG IV PUSH (08:37)
--- NOTE | 2022-06-24 09:10 | PM.IMPN ---
Progress Note: A&P Assessment and Plan (1) Alcoholism: Code(s): F10.20 - Alcohol dependence, uncomplicated Status: Acute Assessment and Plan: Patient drinks 1 pint of whiskey per day. He had plans to begin outpatient rehab on 06/23, however because he had been drinking, (last drink 06/23 at 10a.m.) he was instructed to go to the emergency department for 3 days of detox before he could be admitted to outpatient rehab. Patient with extensive history of alcohol withdrawal symptoms including alcohol withdrawal seizure. Multiple hospitalizations related to alcohol withdrawal. Most recently hospitalized from 05/27-05/30 requiring Precedex drip. He is at high risk for developing withdrawal symptoms and will be closely monitored. Continue with CIWA protocol. CIWA scores today 2-8 Continue Librium 50 mg PO q6h Ativan as needed for withdrawl symptoms Continue PO Keppra for withdrawal seizures Thiamine and folic acid supplementation Low threshold for transition to IMU for closer monitoring if CIWA scores become more elevated or symptoms progress (2) Chronic pancreatitis: Code(s): K86.1 - Other chronic pancreatitis Status: Acute Assessment and Plan: Lipase is within normal limits. No symptoms Continue Creon (3) Depression with anxiety: Code(s): F41.8 - Other specified anxiety disorders Status: Acute Assessment and Plan: No acute issues. Continue buspirone and amitriptyline (4) Hypertension: Code(s): I10 - Essential (primary) hypertension Status: Acute Assessment and Plan: Blood pressures slightly elevated in the 140s-150s systolic. Resume home lisinopril. Pt states he recently ran out of this and has been off for several weeks. Monitor BP trends (5) Hypomagnesemia: Code(s): E83.42 - Hypomagnesemia Status: Acute Assessment and Plan: Mag 1.5 2 g IV Mag sulfate Monitor levels Subjective Date/time seen: 06/24/22 09:10 Interval history: Date of service: 06/24/2022 Niles Díaz is a 31-year-old male with a history of alcohol abuse and alcohol withdrawal symptoms including alcohol withdrawal seizures with frequent hospitalizations, as well as depression, anxiety, chronic pancreatitis, and hypertension. He is hospitalized for ?detox. He presented to outpatient rehab yesterday but admitted to having drank most recently yesterday morning at 10:00 a.m. (states he had 1 pint of whiskey) and was instructed that he could not be accepted to the outpatient rehab until he completed 3 days of inpatient detox. Today he states he has some mild tremors of his hand but otherwise has no symptoms. He denies sweats. Denies hallucinations. He has a mild headache. No agitation or restlessness. He denies nausea or vomiting. He is eating breakfast and tolerating PO intake without issues. Denies SOB, cough, CP. He states that he feels very confident that he will not have any significant withdrawal symptoms as he can usually tell when this is coming on. Review of Systems Review of Systems: All systems reviewed & are unremarkable except as noted in HPI and below Exam Narrative: General: Well-nourished, well-appearing 31-year-old male, sitting up in bed, comfortable, NARD Neuro: awake, alert and oriented x4, speech clear, mild tremor of bilateral hands HEENMT: normocephalic, atraumatic, EOMI, sclerae anicteric Respiratory: clear to auscultation bilaterally, nonlabored breathing Cardio: regular rate, regular rhythm with S1-S2 Abdomen: nondistended, normoactive bowel sounds, soft, nontender to palpation Extremities: no edema, erythema, or tenderness to palpation, DP pulses 2+ bilaterally Skin: no rashes or lesions, warm and dry Psych: appropriate mood and affect, judgment and insight intact Objective Data Vital Signs Vital Signs: Vital Signs - 24 hr 06/23/22 15:10 06/23/22 16:55 06/23/22 17:00 Temperature 98 F Pulse R
[2022-06-24] MEDS: MAGNESIUM SULF 2 GM/WATER 50ML 2 GM/50 ML BAG IVPB (11:04)
[2022-06-24] MEDS: lisinopriL 10 MG TABLET PO (11:04)
[2022-06-24 12:38] LABS: Glucose Point of Care 108 mg/dl (65-105)
[2022-06-24] MEDS: ACETAMINOPHEN 325 MG TABLET 650 MG PO (13:18)
[2022-06-24 14:00] VITALS: BP 137/86; PULSE 90; RESP 20; TEMP 36.5; O2SAT 100
[2022-06-24 17:51] LABS: Glucose Point of Care 131 mg/dl (65-105)
[2022-06-24 20:40] LABS: Glucose Point of Care 130 mg/dl (65-105)
[2022-06-24 21:51] VITALS: BP 143/70; PULSE 98; RESP 20; TEMP 36.6; O2SAT 99
[2022-06-25 00:13] LABS: Glucose Point of Care 114 mg/dl (65-105)
[2022-06-25] MEDS: chlordiazePOXIDE (*CRX) 25 MG CAPSULE 50 MG PO (05:22)
[2022-06-25 05:43] LABS: Hematocrit 41.6 % (42.0-52.0); Hemoglobin 14.6 g/dL (14.0-18.0); Mean Corpuscular HGB Conc 35.1 g/dl (32-36); Mean Corpuscular Hemoglobin 30.9 pg (26-34); Mean Corpuscular Volume 87.9 fl (80-100); Mean Platelet Volume 10.1 fl (7.4-10.4); Platelet Count Result 164 k/mm3 (150-375); Red Blood Count 4.73 M/mm3 (4.6-6.20); Red Cell Distribution Width 12.7 % (11.5-14.5); White Blood Count 5.6 K/mm3 (4.5-10.0)
[2022-06-25 05:56] LABS: Anion Gap 10 mmol/L (8-16); Blood Urea Nitrogen 11 mg/dL (9-20); Calcium 9.6 mg/dL (8.4-10.2); Carbon Dioxide 24 mmol/L (22-30); Chloride 104 mmol/L (98-107); Estimated CRCL calculation 110 ml/min; Estimated Glomerular Filt Rate > 60; Glucose 94 mg/dL (65-110); Magnesium 1.9 mg/dL (1.6-2.3); Potassium 4.1 mmol/L (3.4-5.0); Sodium 138 mmol/L (137-145)
[2022-06-25 06:00] VITALS: BP 140/85; PULSE 67; RESP 16; TEMP 36.6; O2SAT 100
[2022-06-25 06:08] LABS: Glucose Point of Care 133 mg/dl (65-105)
--- NOTE | 2022-06-25 08:45 | PM.IMPN ---
Progress Note: A&P Assessment and Plan (1) Alcoholism: Code(s): F10.20 - Alcohol dependence, uncomplicated Status: Acute Assessment and Plan: Patient drinks 1 pint of whiskey per day outpatient rehab on 06/23, however because he had been drinking, (last drink 06/23 at 10a.m.) he was instructed to go to the emergency department for 3 days of detox before he could be admitted to outpatient rehab. Patient with extensive history of alcohol withdrawal symptoms including alcohol withdrawal seizure Most recently hospitalized from 05/27-05/30 requiring Precedex drip. High risk for developing withdrawal symptoms Continue with CIWA protocol. CIWA scores today 5 Continue Librium 50 mg PO q6h, titrate to 25mg Q6H Change Ativan to Valium for acute uncontrolled withdrawal symptoms Continue PO Keppra for withdrawal seizures Thiamine and folic acid supplementation Low threshold for transition to IMU for closer monitoring if CIWA scores become more elevated or symptoms progress (2) Chronic pancreatitis: Code(s): K86.1 - Other chronic pancreatitis Status: Acute Assessment and Plan: Lipase is within normal limits. No symptoms Continue Creon (3) Depression with anxiety: Code(s): F41.8 - Other specified anxiety disorders Status: Acute Assessment and Plan: No acute issues. Continue buspirone and amitriptyline (4) Hypertension: Code(s): I10 - Essential (primary) hypertension Status: Acute Assessment and Plan: Blood pressures slightly elevated in the 140s-150s systolic. Resume home lisinopril. Pt states he recently ran out of this and has been off for several weeks. Monitor BP trends Remains stable (5) Hypomagnesemia: Code(s): E83.42 - Hypomagnesemia Status: Acute Assessment and Plan: Mag 1.9 supplement as indicated Monitor levels Plan Tylenol for headache Cepacol for sore throat Subjective Date/time seen: 06/25/22844 Interval history: 06/25/22844 Patient is up working on his computer. He denies any current issues. He does appear to have some tremoring and a headache. He does not have any abdominal pain, nausea, vomiting, diarrhea, constipation, weakness, fatigue. He is complaining of a throat pain, which he stated is worse when he swallows. He denies any hallucination, photophobia, sweats, fevers, or chills. 06/24/2022 Niles Díaz is a 31-year-old male with a history of alcohol abuse and alcohol withdrawal symptoms including alcohol withdrawal seizures with frequent hospitalizations, as well as depression, anxiety, chronic pancreatitis, and hypertension.? He is hospitalized for ?detox. He presented to outpatient rehab yesterday but admitted to having drank most recently yesterday morning at 10:00 a.m. (states he had 1 pint of whiskey) and was instructed that he could not be accepted to the outpatient rehab until he completed 3 days of inpatient detox. Today he states he has some mild tremors of his hand but otherwise has no symptoms. He denies sweats. Denies hallucinations. He has a mild headache. No agitation or restlessness. He denies nausea or vomiting. He is eating breakfast and tolerating PO intake without issues. Denies SOB, cough, CP. He states that he feels very confident that he will not have any significant withdrawal symptoms as he can usually tell when this is coming on. 06/23/22? 23:32 ?this is a 31-year-old male patient who has been admitted to this hospital multiple times for alcohol withdrawal.? The patient was recently discharged from this facility on 05/30/2022 for alcohol withdrawal.? The patient had been on a Precedex drip at that time.? The patient had been discharged home to [facility].? The patient tells me that he started drinking again approximately 2 weeks ago.? He stated that he had lost a Librium.? He stated that he left the Librium in his pants pocket and they got t
--- NOTE | 2022-06-25 08:45 | P.PNIM_ITS ---
Progress Note: A&P Assessment and Plan (1) Alcoholism: Code(s): F10.20 - Alcohol dependence, uncomplicated Status: Acute Assessment and Plan: * Patient drinks 1 pint of whiskey per day * outpatient rehab on 06/23, however because he had been drinking, (last drink 06/23 at 10a.m.) he was instructed to go to the emergency department for 3 days of detox before he could be admitted to outpatient rehab. * Patient with extensive history of alcohol withdrawal symptoms including alcohol withdrawal seizure * Most recently hospitalized from 05/27-05/30 requiring Precedex drip. * High risk for developing withdrawal symptoms * Continue with CIWA protocol. CIWA scores today 5 * Continue Librium 50 mg PO q6h, titrate to 25mg Q6H * Change Ativan to Valium for acute uncontrolled withdrawal symptoms * Continue PO Keppra for withdrawal seizures * Thiamine and folic acid supplementation * Low threshold for transition to IMU for closer monitoring if CIWA scores become more elevated or symptoms progress (2) Chronic pancreatitis: Code(s): K86.1 - Other chronic pancreatitis Status: Acute Assessment and Plan: * Lipase is within normal limits. No symptoms * Continue Creon (3) Depression with anxiety: Code(s): F41.8 - Other specified anxiety disorders Status: Acute Assessment and Plan: * No acute issues. * Continue buspirone and amitriptyline (4) Hypertension: Code(s): I10 - Essential (primary) hypertension Status: Acute Assessment and Plan: * Blood pressures slightly elevated in the 140s-150s systolic. * Resume home lisinopril. Pt states he recently ran out of this and has been off for several weeks. * Monitor BP trends * Remains stable (5) Hypomagnesemia: Code(s): E83.42 - Hypomagnesemia Status: Acute Assessment and Plan: * Mag 1.9 * supplement as indicated * Monitor levels Plan Tylenol for headache Cepacol for sore throat Subjective Date/time seen: 06/25/22844 Interval history: 06/25/22844 Patient is up working on his computer. He denies any current issues. He does appear to have some tremoring and a headache. He does not have any abdominal pain, nausea, vomiting, diarrhea, constipation, weakness, fatigue. He is complaining of a throat pain, which he stated is worse when he swallows. He denies any hallucination, photophobia, sweats, fevers, or chills. 06/24/2022 Niles Díaz is a 31-year-old male with a history of alcohol abuse and alcohol withdrawal symptoms including alcohol withdrawal seizures with frequent hospitalizations, as well as depression, anxiety, chronic pancreatitis, and hypertension.? He is hospitalized for ?detox. He presented to outpatient rehab yesterday but admitted to having drank most recently yesterday morning at 10:00 a.m. (states he had 1 pint of whiskey) and was instructed that he could not be accepted to the outpatient rehab until he completed 3 days of inpatient detox. Today he states he has some mild tremors of his hand but otherwise has no symptoms. He denies sweats. Denies hallucinations. He has a mild headache. No agitation or restlessness. He denies nausea or vomiting. He is eating breakfast and tolerating PO intake without issues. Denies SOB, cough, CP. He states that he feels very confident that he will not have any significant withdrawal symptoms as he can usually tell when this is coming on. 06/23/22? 23:32 ?this is a 31-year-old male patient who has been admitted to
[2022-06-25] MEDS: GABAPENTIN 300 MG CAPSULE PO ×3 (08:55→17:26)
[2022-06-25] MEDS: LIPASE/AMYLASE/PROTEASE 12,000 UNITS CAP 2 CAP PO ×3 (08:55→17:26)
[2022-06-25] MEDS: FOLIC ACID 1 MG TABLET PO (08:55)
[2022-06-25] MEDS: lisinopriL 10 MG TABLET PO (08:55)
[2022-06-25] MEDS: busPIRone HCL 10 MG TABLET PO ×3 (08:56→17:27)
[2022-06-25] MEDS: levETIRAcetam 500 MG TABLET PO ×2 (08:56→17:26)
[2022-06-25] MEDS: THIAMINE HCL 200 MG/2 ML VIAL 100 MG IV PUSH (08:56)
[2022-06-25] MEDS: ACETAMINOPHEN 325 MG TABLET 650 MG PO (09:02)
[2022-06-25] MEDS: BENZOCAINE/MENTHOL (*BKC) 18 EA LOZENGE 1 LOZENGE PO (11:01)
[2022-06-25 12:13] LABS: Glucose Point of Care 107 mg/dl (65-105)
[2022-06-25] MEDS: chlordiazePOXIDE (*CRX) 25 MG CAPSULE PO ×3 (12:21→23:00)
[2022-06-25 14:00] VITALS: BP 117/72; PULSE 73; RESP 14; TEMP 36.1; O2SAT 99
[2022-06-25 17:56] LABS: Glucose Point of Care 104 mg/dl (65-105)
[2022-06-25 20:35] VITALS: BP 147/89; PULSE 66; RESP 18; TEMP 36.9; O2SAT 100
[2022-06-25] MEDS: AMITRIPTYLINE HCL 25 MG TABLET 100 MG PO (23:00)
[2022-06-25 23:15] LABS: Glucose Point of Care 111 mg/dl (65-105)
[2022-06-26 04:32] VITALS: BP 124/78; PULSE 85; RESP 16; TEMP 36.7; O2SAT 100
[2022-06-26] MEDS: chlordiazePOXIDE (*CRX) 25 MG CAPSULE PO ×2 (05:04→12:59)
[2022-06-26 05:29] LABS: Basophils Absolute Auto 0.1 K/mm3 (0.0-0.1); Eosinophils Absolute Auto 0.2 K/mm3 (0-0.3); Eosinophils Percent Auto 2.5 % (0-4.4); Hematocrit 41.8 % (42.0-52.0); Hemoglobin 14.5 g/dL (14.0-18.0); Immature Granulocyte Absolute 0.04 K/mm3 (0.00-0.031); Immature Granulocyte Percent A 0.6 % (0-0.5); Lymphocytes Absolute Auto 2.99 K/mm3 (0.9-3.2); Lymphocytes Percent Auto 41.4 % (18.3-44.2); Mean Corpuscular HGB Conc 34.7 g/dl (32-36); Mean Corpuscular Hemoglobin 31.4 pg (26-34); Mean Corpuscular Volume 90.5 fl (80-100); Mean Platelet Volume 10.4 fl (7.4-10.4); Monocytes Absolute Auto 0.5 K/mm3 (0.1-0.6); Monocytes Percent Auto 6.2 % (2.6-8.5); Neutrophils Absolute Auto 3.5 K/mm3 (1.3-6.7); Neutrophils Percent Auto 48.3 % (45.5-73.1); Platelet Count Result 171 k/mm3 (150-375); Red Blood Count 4.62 M/mm3 (4.6-6.20); Red Cell Distribution Width 13.2 % (11.5-14.5); White Blood Count 7.2 K/mm3 (4.5-10.0)
[2022-06-26 05:34] LABS: Alanine Aminotransferase 55 U/L (6-50); Albumin Level 4.7 g/dL (3.5-5.1); Alkaline Phosphatase 63 U/L (38-126); Anion Gap 11 mmol/L (8-16); Aspartate Amino Transferase 49 U/L (17-59); Bilirubin,Total 0.5 mg/dL (0.2-1.3); Blood Urea Nitrogen 13 mg/dL (9-20); Calcium 9.5 mg/dL (8.4-10.2); Carbon Dioxide 21 mmol/L (22-30); Chloride 105 mmol/L (98-107); Estimated CRCL calculation 121 ml/min; Estimated Glomerular Filt Rate > 60; Glucose 98 mg/dL (65-110); Magnesium 1.7 mg/dL (1.6-2.3); Potassium 3.9 mmol/L (3.4-5.0); Sodium 137 mmol/L (137-145)
[2022-06-26] MEDS: ACETAMINOPHEN 500 MG TABLET 1000 MG PO (08:15)
[2022-06-26] MEDS: levETIRAcetam 500 MG TABLET PO (08:16)
[2022-06-26] MEDS: LIPASE/AMYLASE/PROTEASE 12,000 UNITS CAP 2 CAP PO ×2 (08:17→12:59)
[2022-06-26] MEDS: lisinopriL 10 MG TABLET PO (08:17)
[2022-06-26] MEDS: THIAMINE HCL 200 MG/2 ML VIAL 100 MG IV PUSH (08:17)
[2022-06-26] MEDS: GABAPENTIN 300 MG CAPSULE PO ×2 (08:17→12:59)
[2022-06-26] MEDS: busPIRone HCL 10 MG TABLET PO ×2 (08:17→12:59)
[2022-06-26] MEDS: FOLIC ACID 1 MG TABLET PO (08:17)
[2022-06-26] MEDS: MAGNESIUM SULF 2 GM/WATER 50ML 2 GM/50 ML BAG IVPB (09:55)
--- NOTE | 2022-06-26 10:45 | PM.DS ---
DS: Admitting Diagnosis Discharge Date 06/26/22 1045 Admitting Diagnosis ETOH abuse DS: Discharge Diagnosis Discharge Diagnosis (1) Alcoholism: Code(s): F10.20 - Alcohol dependence, uncomplicated Status: Acute Assessment and Plan: Patient drinks 1 pint of whiskey per day outpatient rehab on 06/23, however because he had been drinking, (last drink 06/23 at 10a.m.) he was instructed to go to the emergency department for 3 days of detox before he could be admitted to outpatient rehab. Patient with extensive history of alcohol withdrawal symptoms including alcohol withdrawal seizure Most recently hospitalized from 05/27-05/30 requiring Precedex drip. High risk for developing withdrawal symptoms Continue with CIWA protocol. CIWA scores today 5 Continue Librium 50 mg PO q6h, titrate to 25mg Q6H Change Ativan to Valium for acute uncontrolled withdrawal symptoms Continue PO Keppra for withdrawal seizures Thiamine and folic acid supplementation Low threshold for transition to IMU for closer monitoring if CIWA scores become more elevated or symptoms progress (2) Chronic pancreatitis: Code(s): K86.1 - Other chronic pancreatitis Status: Acute Assessment and Plan: Lipase is within normal limits. No symptoms Continue Creon (3) Depression with anxiety: Code(s): F41.8 - Other specified anxiety disorders Status: Acute Assessment and Plan: No acute issues. Continue buspirone and amitriptyline (4) Hypertension: Code(s): I10 - Essential (primary) hypertension Status: Acute Assessment and Plan: Blood pressures slightly elevated in the 140s-150s systolic. Resume home lisinopril. Pt states he recently ran out of this and has been off for several weeks. Monitor BP trends Remains stable (5) Hypomagnesemia: Code(s): E83.42 - Hypomagnesemia Status: Acute Assessment and Plan: Mag 1.9 supplement as indicated Monitor levels Plan Tylenol for headache Cepacol for sore throat DS: Summary Hospital Course Hospital Course: Patient is a 31-year-old male with a past medical history of alcohol abuse, alcohol withdrawal, chronic pancreatitis who presented to the ED after being sent here from the rehab center. Patient had signed up for inpatient rehab with [facility] however prior to going he had a pt of whiskey. Patient has been hospitalized multiple times for alcohol withdrawal and acute alcohol abuse. Patient was placed on CIWA and was given Librium throughout the visit. Thiamine and folic acid was also supplemented. Patient has not shown any signs of withdrawal. Patient was admitted due to the high risk of withdrawal symptoms that he has had in the past. Currently patient feels okay and has a CIWA of about 3-5. Patient is ready to go and denies any current needs. Magnesium was a little low today at 1.7 and was replaced. Labs and vital signs are stable and remained stable throughout the visit. Patient denies any current problems including chest pain, shortness a breath, nausea, vomiting, diarrhea, constipation, weakness or fatigue discussion about the need to quit drinking was delivered. Patient did state that he is not going to drink today and that he will be able to go to his rehab center tomorrow. Care coordination has followed up and stated that the rehab center is ready for him and is aware of the discharge. Patient is stable for discharge at this time. Status at Discharge Functional status at discharge: independent ambulation Overall status at discharge: patient is progressing back to baseline Time Spent with Patient Time attestation: Total time spent providing and/or coordinating discharge services: 38 minutes Time spent: Greater than 30 minutes Specific discharge activities: Diagnostic testing, chart review, developing a treatment plan, education, care coordination documentation, physical
== END 2022-06-26 13:02 | disposition home or self-care (01) ==
LOC: ANHED 17:24 → ANH3MEDSUR 21:28 → ANH3MED 22:38
PROVIDERS: Emergency Medicine; Nurse Practitioner; Physician Assistant; Admitting Provider Internal Medicine; Emergency Provider General Practice; Visit Provider Nurse Practitioner
DX: F10.229 Alcohol dependence with intoxication, unspecified (principal); F10.239 Alcohol dependence with withdrawal, unspecified; F12.90 Cannabis use, unspecified, uncomplicated; Y90.7 Blood alcohol level of 200-239 mg/100 ml; K86.1 Other chronic pancreatitis; F41.8 Other specified anxiety disorders; I10 Essential (primary) hypertension; E83.42 Hypomagnesemia; R00.0 Tachycardia, unspecified; R51.9 Headache, unspecified; Z20.822 Contact with and (suspected) exposure to COVID-19; F13.20 Sedative, hypnotic or anxiolytic dependence, uncomplicated; R56.9 Unspecified convulsions; F17.210 Nicotine dependence, cigarettes, uncomplicated; Z79.899 Other long term (current) drug therapy
CPT/HCPCS: 36415; 80048; 80053; 80307; 81001; 82550; 82948; 83605; 83615; 83690; 83735; 84100; 84443; 85025; 85027; 86140; 96361; 96374; 96375; 96376; 99285; A9270; C9803; G0378; J2060; J3411; J3475; J7120; U0003; U0005

== ENCOUNTER 2022-07-11 03:09 | Inpatient (IN) | payer BC, SELFPAY ==
[2022-07-11] VITALS (42 sets, daily range): BP systolic 131–167; BP diastolic 83–128; PULSE 74–133; RESP 11–29; TEMP 36.8–37.1; O2SAT 74–100; BMI 25.2
--- NOTE | ~2022-07-11 | XR_ITS ---
EXAMINATION: XR abdomen/kub 1V DATE: 07/13/2022 15:44 INDICATION: Nausea and vomiting. Constipation. TECHNIQUE: A supine view of the abdomen on 2 radiographs was obtained. COMPARISON: Abdomen MRI 04/18/2022 FINDINGS: There are no dilated loops of bowel. There is a small volume of stool in the colon. There i s instrumentation of proximal right femur. IMPRESSION: 1. Normal bowel gas pattern. Reviewed, dictated and finalized at location B.
[2022-07-11] MEDS: ONDANSETRON INJ 4 MG/2 ML VIAL IV PUSH ×3 (04:13→19:56)
[2022-07-11] MEDS: SODIUM CHLORIDE 0.9% IV 1,000 ML 999 ML IV CONT ×3 (04:13→07:52)
[2022-07-11 04:30] LABS: Basophils Absolute Auto 0.1 K/mm3 (0.0-0.1); Basophils Percent Auto 0.7 % (0.2-1.2); Eosinophils Percent Auto 0.1 % (0-4.4); Hematocrit 47.6 % (42.0-52.0); Immature Granulocyte Absolute 0.06 K/mm3 (0.00-0.031); Immature Granulocyte Percent A 0.4 % (0-0.5); Lymphocytes Absolute Auto 2.57 K/mm3 (0.9-3.2); Lymphocytes Percent Auto 15.1 % (18.3-44.2); Mean Corpuscular HGB Conc 35.7 g/dl (32-36); Mean Corpuscular Hemoglobin 31.3 pg (26-34); Mean Corpuscular Volume 87.7 fl (80-100); Mean Platelet Volume 9.4 fl (7.4-10.4); Monocytes Absolute Auto 0.3 K/mm3 (0.1-0.6); Monocytes Percent Auto 1.8 % (2.6-8.5); Neutrophils Percent Auto 81.9 % (45.5-73.1); Platelet Count Result 369 k/mm3 (150-375); Red Blood Count 5.43 M/mm3 (4.6-6.20); Red Cell Distribution Width 13.5 % (11.5-14.5)
[2022-07-11 04:48] LABS: Alanine Aminotransferase 48 U/L (6-50); Albumin Level 5.6 g/dL (3.5-5.1); Alkaline Phosphatase 116 U/L (38-126); Anion Gap 26 mmol/L (8-16); Aspartate Amino Transferase 47 U/L (17-59); Bilirubin,Total 0.7 mg/dL (0.2-1.3); Blood Urea Nitrogen 13 mg/dL (9-20); Calcium 9.6 mg/dL (8.4-10.2); Carbon Dioxide 18 mmol/L (22-30); Chloride 99 mmol/L (98-107); Estimated CRCL calculation 93 ml/min; Estimated Glomerular Filt Rate > 60; Glucose 130 mg/dL (65-110); Lipase 298 U/L (23-300); Potassium 4.1 mmol/L (3.4-5.0); Sodium 143 mmol/L (137-145)
[2022-07-11 04:52] LABS: Prothrombin Time 12.9 Seconds (11.1-14.7)
[2022-07-11 04:53] LABS: Partial Thromboplastin Time 27.3 SECONDS (22.3-36.8)
--- NOTE | 2022-07-11 04:54 | ED.ALCOHOL ---
HPI - Alcohol General Chief Complaint: Alcohol Stated Complaint: vomiting blood, GI bleed, alcohol withdrawl Time Seen by Provider: 07/11/22 04:24 History of Present Illness HPI narrative: Patient is a 31-year-old male presenting with vomiting and alcohol withdrawal. Patient has been trying to quit drinking alcohol for the last several years. He has been admitted several times for alcohol withdrawal and then ultimately begins drinking again. Patient was seen at [facility] yesterday who gave him Librium and discharged home. Unfortunately, he then started to drink again. States his last drink was sometime last night. States that he feels like he is currently withdrawing. Endorses anxiety and tremulousness. States he has had alcohol withdrawal seizures in the past. Patient also complains of persistent nausea and diffuse abdominal pain. States he has had several episodes of hematemesis. He denies fevers, headache, numbness or weakness, chest pain, shortness of breath, dysuria, diarrhea. Related Data Home Medications Medication Instructions Recorded Confirmed buspirone 10 mg tablet 10 mg PO TID 01/17/22 07/11/22 folic acid 1 mg tablet 1 mg PO DAILY 01/17/22 07/11/22 gabapentin 300 mg capsule 300 mg PO TID 01/17/22 07/11/22 levetiracetam 500 mg tablet 500 mg PO BID 01/17/22 07/11/22 amitriptyline 50 mg tablet 100 mg PO HS 01/20/22 07/11/22 olanzapine 5 mg tablet 5 mg HS PRN Anxiety 05/27/22 07/11/22 Allergies Allergy/AdvReac Type Severity Reaction Status Date / Time Penicillins Allergy Unknown Hives Verified 07/11/22 11:24 diazepam [From Valium] AdvReac Severe Confusion Verified 07/11/22 11:24 Review of Systems Review of Systems: All systems reviewed & are unremarkable except as noted in HPI and below PMFSH Past Medical History Medical History Alcohol withdrawal syndrome Alcoholism Depression with anxiety Elevated LFTs Erosive esophagitis Head injury Hypomagnesemia Leukopenia Thrombocytopenia Surgical History Surgical History History of nephrectomy Family History Family History Father Diabetes mellitus Hypertension Grandparent Family history of cardiovascular disease Social History Social History Social History: 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 His mother Molly will be his surrogate. 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 EYES: PERRLA and EOMI. ENT: Nares clear, no rhinorrhea or epistaxis. Mucous membranes moist. NECK: Supple. CHEST: Clear to auscultation. No respiratory distress. HEART: Tachycardic, regular rhythm. No murmur heard. Normal peripheral pulses. ABDOMEN: Mild diffuse tenderness, normal active bowel sounds. EXTREMITIES: Normal range of motion. No edema. SKIN: Warm, dry, no rash. NE
[2022-07-11] MEDS: FAMOTIDINE 20 MG/2 ML VIAL IV PUSH (04:58)
[2022-07-11] MEDS: LORazepam INJ (*CRX) 2 MG/ML VIAL IV PUSH ×4 (04:58→12:22)
[2022-07-11 05:00] LABS: Ethanol 363 mg/dL (<10)
--- NOTE | 2022-07-11 05:35 | PC.NURSE ---
Called pharmacy for banana bag for pt
[2022-07-11] MEDS: THIAMINE HCL INJ 100 MG, FOLIC ACID INJ 1 MG, MULTIVITAMINS-12 INJ VIAL 1 5 ML, MULTIVI... 125 MG IV CONT (06:05)
[2022-07-11] MEDS: METOCLOPRAMIDE HCL INJ 10 MG/2 ML VIAL IV PUSH (06:57)
[2022-07-11 08:14] LABS: Glucose Point of Care 115 mg/dl (65-105)
[2022-07-11 09:00] LABS: SARS-CoV-2 RNA PCR Negative
--- NOTE | 2022-07-11 11:13 | ADMGEN ---
This patient, Niles Díaz, was admitted to [facility] Surg Room 306-01. Patient/family oriented to hospital policies and general routines including ID bracelet, bed and alarms, visiting hours, pain management, procedures, bathroom and other care routines, personal items, smoking policy, room service/diet, and visiting hours. Information on how to activate the Rapid Response Team has been discussed. Patient/Family are encouraged to report perceived risks to care and to ask questions if they do not understand what they are told or what they should do.
[2022-07-11 12:22] LABS: Glucose Point of Care 128 mg/dl (65-105)
--- NOTE | 2022-07-11 14:37 | PM.IMHP ---
H&P: HPI History of Present Illness Date/Time: 07/11/22 14:37 Chief Complaint: ETOH withdrawal Narrative: Patient is a 31-year-old male with a past medical history of alcohol abuse, depression, esophagitis, leukopenia who presented to the ED with complaints vomiting and alcohol withdrawal. Patient is here quite often for intoxication and withdrawal symptoms. It appears that yesterday he went to [facility] for help, however, was given a script for librium. However, when he got home he went back to drinking. Patient feels that he is withdrawing and stated that he is very anxious and tremulous. Patient in the past has had alcoholic seizures. Patient stated that he did go to outpatient rehab however he had a slip. Patient stated that he is going to go to inpatient rehab. Today he was feeling tingling along with headaches, hallucinations pretty anxious. He also stated that he has been throwing up blood for the last couple days. Currently he denies any chest pain. He did say that he had shortness of breath however related to the anxiety. He did state that he was pretty weak. Patient's alcohol level was 363. Patient did state that he feels lot better since he has had the Librium. He also appears to be red and swollen especially in the face. 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 His mother Molly will be his surrogate. 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 blood products: Yes Meds Home Medications and Allergies Home Medications Medication Instructions Recorded Confirmed Type buspirone 10 mg tablet 10 mg PO TID 01/17/22 07/11/22 History folic acid 1 mg tablet 1 mg PO DAILY 01/17/22 07/11/22 History gabapentin 300 mg capsule 300 mg PO TID 01/17/22 07/11/22 History levetiracetam 500 mg tablet 500 mg PO BID 01/17/22 07/11/22 History amitriptyline 50 mg tablet 100 mg PO HS 01/20/22 07/11/22 History thiamine HCl (vitamin B1) 100 mg 100 mg PO QAM #30 tabs 01/21/22 07/11/22 Rx tablet (Vitamin B-1) [id number] 2 cap PO TIDWM 30 days #180 caps 04/19/22 07/11/22 Rx 12,000-38,000-60,000 unit capsule,delayed rel (Creon) olanzapine 5 mg tablet 5 mg HS PRN Anxiety 05/27/22 07/11/22 History chlordiazepoxide HCl 25 mg capsule 25 mg PO Q6H PRN Alcohol
[2022-07-11] MEDS: chlordiazePOXIDE (*CRX) 25 MG CAPSULE 50 MG PO ×3 (15:13→23:50)
[2022-07-11] MEDS: LIPASE/AMYLASE/PROTEASE 12,000 UNITS CAP 2 CAP PO (17:26)
[2022-07-11] MEDS: GABAPENTIN 300 MG CAPSULE PO (17:27)
[2022-07-11] MEDS: levETIRAcetam 500 MG TABLET PO (17:27)
[2022-07-11] MEDS: busPIRone HCL 10 MG TABLET PO (17:27)
[2022-07-11] MEDS: ACETAMINOPHEN 500 MG TABLET 1000 MG PO (18:08)
[2022-07-11] MEDS: AMITRIPTYLINE HCL 25 MG TABLET 100 MG PO (22:42)
[2022-07-12] VITALS (7 sets, daily range): BP systolic 144–153; BP diastolic 91–96; PULSE 68–111; RESP 18; TEMP 36.6–37.1; O2SAT 99–100
[2022-07-12 00:42] LABS: Glucose Point of Care 128 mg/dl (65-105)
[2022-07-12] MEDS: LORazepam INJ (*CRX) 2 MG/ML VIAL IV PUSH ×2 (04:21→08:50)
[2022-07-12] MEDS: chlordiazePOXIDE (*CRX) 25 MG CAPSULE 50 MG PO ×4 (05:06→23:52)
[2022-07-12 05:17] LABS: Glucose Point of Care 109 mg/dl (65-105)
[2022-07-12 06:18] LABS: Basophils Percent Auto 0.3 % (0.2-1.2); Hematocrit 36.8 % (42.0-52.0); Hemoglobin 12.9 g/dL (14.0-18.0); Immature Granulocyte Absolute 0.02 K/mm3 (0.00-0.031); Immature Granulocyte Percent A 0.2 % (0-0.5); Lymphocytes Absolute Auto 1.35 K/mm3 (0.9-3.2); Lymphocytes Percent Auto 15.7 % (18.3-44.2); Mean Corpuscular HGB Conc 35.1 g/dl (32-36); Mean Corpuscular Hemoglobin 31.5 pg (26-34); Mean Corpuscular Volume 89.8 fl (80-100); Mean Platelet Volume 9.6 fl (7.4-10.4); Monocytes Absolute Auto 0.5 K/mm3 (0.1-0.6); Monocytes Percent Auto 6.1 % (2.6-8.5); Neutrophils Absolute Auto 6.7 K/mm3 (1.3-6.7); Neutrophils Percent Auto 77.7 % (45.5-73.1); Platelet Count Result 148 k/mm3 (150-375); Red Cell Distribution Width 13.2 % (11.5-14.5); White Blood Count 8.6 K/mm3 (4.5-10.0)
[2022-07-12 06:34] LABS: Alanine Aminotransferase 38 U/L (6-50); Albumin Level 4.5 g/dL (3.5-5.1); Alkaline Phosphatase 77 U/L (38-126); Anion Gap 10 mmol/L (8-16); Aspartate Amino Transferase 36 U/L (17-59); Bilirubin,Total 1.2 mg/dL (0.2-1.3); Blood Urea Nitrogen 6 mg/dL (9-20); Carbon Dioxide 27 mmol/L (22-30); Chloride 98 mmol/L (98-107); Estimated CRCL calculation 121 ml/min; Estimated Glomerular Filt Rate > 60; Glucose 110 mg/dL (65-110); Magnesium 2.1 mg/dL (1.6-2.3); Potassium 3.4 mmol/L (3.4-5.0); Sodium 135 mmol/L (137-145)
--- NOTE | 2022-07-12 08:03 | PM.IMPN ---
Progress Note: A&P Assessment and Plan (1) Alcoholism: Code(s): F10.20 - Alcohol dependence, uncomplicated Status: Acute Assessment and Plan: Patient drinks 1 pint of whiskey per day Recently admitted and was DC'd to go to outpatient treatment center Patient with extensive history of alcohol withdrawal symptoms including alcohol withdrawal seizure ETOH is 363 CIWA protocol CIWA scores today 10 Continue Librium 50 mg PO q6h, titrate with CIWA scores Continue Ativan IV 1-2mg for CIWA 1mg >8<15, 2mg >15 Continue PO Keppra for withdrawal seizures Thiamine and folic acid supplementation Low threshold for transition to IMU for closer monitoring if CIWA scores become more elevated or symptoms progress Nausea persistent give one dose of IV Reglan (2) Depression with anxiety: Code(s): F41.8 - Other specified anxiety disorders Status: Acute Assessment and Plan: No acute issues. Continue buspirone and amitriptyline IV ativan on board for break through anxiety (3) Hypertension: Code(s): I10 - Essential (primary) hypertension Status: Acute Assessment and Plan: current BP is 153/96 Resume home lisinopril Monitor BP trends Adjust therapy as indicated Time Spent With Patient Time with patient: Greater than 35 minutes Subjective Date/time seen: 07/12/22 08:03 Interval history: 07/12/22 0800 Patient was sleeping when I went into the room. He mandie very easily. Patient stated that he was having some palpitations and chest pain however he stated that it is induced by anxiety. Tele monitor did not show arrhythmia as overnight. He also stated that he is nauseous and vomiting. He denies any visual changes or hallucinations. He claims to have a headache and he is pretty weak. He also states that every time he swallows water comes right back up. He denies any diarrhea constipation, urinary dysfunction, lightheadedness or dizziness. 07/11/22? 14:37 Patient is a 31-year-old male with a past medical history of alcohol abuse, depression, esophagitis, leukopenia who presented to the ED with complaints vomiting and alcohol withdrawal.? Patient is here quite often for intoxication and withdrawal symptoms.? It appears that yesterday he went to [facility] for help, however, was given a script for librium.? However, when he got home he went back to drinking.? Patient feels that he is withdrawing and stated that he is very anxious and tremulous.? Patient in the past has had alcoholic seizures.? Patient stated that he did go to outpatient rehab however he had a slip.? Patient stated that he is going to go to inpatient rehab.? Today he was feeling tingling along with headaches, hallucinations pretty anxious.? He also stated that he has been throwing up blood for the last couple days.? Currently he denies any chest pain.? He did say that he had shortness of breath however related to the anxiety.? He did state that he was pretty weak.? Patient's alcohol level was 363.? Patient did state that he feels lot better since he has had the Librium.? He also appears to be red and swollen especially in the face. Patient is being admitted to the hospitalist service as inpatient Review of Systems Review of Systems: All systems reviewed & are unremarkable except as noted in HPI and below Exam Const: General: cooperative, no acute distress, well developed, alert, awake, ill appearing, well nourished and overweight Nutritional Appearance: well nourished and overweight Orientation/consciousness: oriented to person, oriented to place, oriented to time and patient oriented x3 Limitations: no limitations HENMT: Head: normal to inspection Ears: hearing grossly normal bilaterally Face/Nose/Sinus: Normal external nose present Mouth: Yes Normal oral and palatal mucosa present, Yes lip normal and Yes tongue normal Teeth and gingiva: abnormal tooth and associated
[2022-07-12] MEDS: busPIRone HCL 10 MG TABLET PO ×3 (08:46→16:20)
[2022-07-12] MEDS: FOLIC ACID 1 MG TABLET PO (08:46)
[2022-07-12] MEDS: GABAPENTIN 300 MG CAPSULE PO ×3 (08:46→16:20)
[2022-07-12] MEDS: METOCLOPRAMIDE HCL INJ 10 MG/2 ML VIAL IV PUSH (08:46)
[2022-07-12] MEDS: LIPASE/AMYLASE/PROTEASE 12,000 UNITS CAP 2 CAP PO ×3 (08:46→16:20)
[2022-07-12] MEDS: THIAMINE HCL 100 MG TABLET PO (08:47)
[2022-07-12] MEDS: levETIRAcetam 500 MG TABLET PO ×2 (08:47→16:19)
[2022-07-12] MEDS: ACETAMINOPHEN 500 MG TABLET 1000 MG PO ×2 (08:49→18:07)
[2022-07-12 11:45] LABS: Glucose Point of Care 109 mg/dl (65-105)
[2022-07-12] MEDS: ONDANSETRON INJ 4 MG/2 ML VIAL IV PUSH (16:19)
[2022-07-12 17:44] LABS: Glucose Point of Care 114 mg/dl (65-105)
[2022-07-12] MEDS: AMITRIPTYLINE HCL 25 MG TABLET 100 MG PO (20:48)
[2022-07-12] MEDS: LORazepam INJ (*CRX) 2 MG/ML VIAL 1 MG IV PUSH (22:29)
[2022-07-13] MEDS: chlordiazePOXIDE (*CRX) 25 MG CAPSULE 50 MG PO ×4 (05:52→23:56)
[2022-07-13 06:00] VITALS: BP 147/80; PULSE 85; RESP 16; TEMP 36.4; O2SAT 99
[2022-07-13 06:43] LABS: Basophils Percent Auto 0.7 % (0.2-1.2); Eosinophils Absolute Auto 0.1 K/mm3 (0-0.3); Hematocrit 40.1 % (42.0-52.0); Hemoglobin 14.2 g/dL (14.0-18.0); Immature Granulocyte Absolute 0.03 K/mm3 (0.00-0.031); Immature Granulocyte Percent A 0.5 % (0-0.5); Immature Platelet Fraction Pct 5.9 % (0.9-11.2); Lymphocytes Absolute Auto 1.84 K/mm3 (0.9-3.2); Lymphocytes Percent Auto 30.3 % (18.3-44.2); Mean Corpuscular HGB Conc 35.4 g/dl (32-36); Mean Corpuscular Hemoglobin 31.1 pg (26-34); Mean Corpuscular Volume 87.7 fl (80-100); Mean Platelet Volume 10.1 fl (7.4-10.4); Monocytes Absolute Auto 0.4 K/mm3 (0.1-0.6); Monocytes Percent Auto 6.1 % (2.6-8.5); Neutrophils Absolute Auto 3.7 K/mm3 (1.3-6.7); Neutrophils Percent Auto 61.4 % (45.5-73.1); Platelet Count Result 128 k/mm3 (150-375); Red Blood Count 4.57 M/mm3 (4.6-6.20); Red Cell Distribution Width 12.9 % (11.5-14.5); White Blood Count 6.1 K/mm3 (4.5-10.0)
[2022-07-13] MEDS: ACETAMINOPHEN 500 MG TABLET 1000 MG PO ×3 (06:44→21:36)
[2022-07-13 07:05] LABS: Potassium 3.2 mmol/L (3.4-5.0)
[2022-07-13 07:07] LABS: Alanine Aminotransferase 39 U/L (6-50); Albumin Level 4.6 g/dL (3.5-5.1); Alkaline Phosphatase 76 U/L (38-126); Anion Gap 12 mmol/L (8-16); Aspartate Amino Transferase 45 U/L (17-59); Bilirubin,Total 0.8 mg/dL (0.2-1.3); Blood Urea Nitrogen 7 mg/dL (9-20); Calcium 9.3 mg/dL (8.4-10.2); Carbon Dioxide 26 mmol/L (22-30); Chloride 99 mmol/L (98-107); Estimated CRCL calculation 110 ml/min; Estimated Glomerular Filt Rate > 60; Glucose 99 mg/dL (65-110); Sodium 137 mmol/L (137-145)
[2022-07-13] MEDS: LIPASE/AMYLASE/PROTEASE 12,000 UNITS CAP 2 CAP PO ×3 (08:11→16:57)
[2022-07-13] MEDS: POTASSIUM CHLORIDE 20 MEQ TABLET 40 MEQ PO (08:11)
[2022-07-13] MEDS: THIAMINE HCL 100 MG TABLET PO (08:12)
[2022-07-13] MEDS: FOLIC ACID 1 MG TABLET PO (08:12)
[2022-07-13] MEDS: GABAPENTIN 300 MG CAPSULE PO ×3 (08:12→16:58)
[2022-07-13] MEDS: levETIRAcetam 500 MG TABLET PO ×2 (08:12→16:58)
[2022-07-13] MEDS: busPIRone HCL 10 MG TABLET PO ×3 (08:12→16:57)
[2022-07-13 08:19] VITALS: RESP 16; O2SAT 99
--- NOTE | 2022-07-13 10:00 | PM.IMPN ---
Progress Note: A&P Assessment and Plan (1) Alcoholism: Code(s): F10.20 - Alcohol dependence, uncomplicated Status: Acute Assessment and Plan: Patient drinks 1 pint of whiskey per day Recently admitted and was DC'd to go to outpatient treatment center Patient with extensive history of alcohol withdrawal symptoms including alcohol withdrawal seizure ETOH is 363 CIWA protocol CIWA scores today 10 Continue Librium 50 mg PO q6h, titrate with CIWA scores Continue Ativan IV 1-2mg for CIWA 1mg >8<15, 2mg >15 Continue PO Keppra for withdrawal seizures Thiamine and folic acid supplementation Low threshold for transition to IMU for closer monitoring if CIWA scores become more elevated or symptoms progress Nausea persistent give one dose of IV Reglan (2) Depression with anxiety: Code(s): F41.8 - Other specified anxiety disorders Status: Acute Assessment and Plan: No acute issues. Continue buspirone and amitriptyline IV ativan on board for break through anxiety (3) Hypertension: Code(s): I10 - Essential (primary) hypertension Status: Acute Assessment and Plan: current BP is 153/96 Resume home lisinopril Monitor BP trends Adjust therapy as indicated Time Spent With Patient Time with patient: Greater than 35 minutes Subjective Date/time seen: 07/13/22 1000 Interval history: 07/13/22 1000 Patient stated that he does does not feel good today. He stated that he is still having nausea and vomiting. He also stated that he is unable to get a lot of sat down. He denies any chest pain, shortness a breath, diarrhea. Patient stated that he has not had a bowel movement 6 days. He denies having any hallucinations. 07/12/22 0800 Patient was sleeping when I went into the room. He mandie very easily. Patient stated that he was having some palpitations and chest pain however he stated that it is induced by anxiety. Tele monitor did not show arrhythmia as overnight. He also stated that he is nauseous and vomiting. He denies any visual changes or hallucinations. He claims to have a headache and he is pretty weak. He also states that every time he swallows water comes right back up. He denies any diarrhea constipation, urinary dysfunction, lightheadedness or dizziness. 07/11/22? 14:37 Patient is a 31-year-old male with a past medical history of alcohol abuse, depression, esophagitis, leukopenia who presented to the ED with complaints vomiting and alcohol withdrawal.? Patient is here quite often for intoxication and withdrawal symptoms.? It appears that yesterday he went to [facility] for help, however, was given a script for librium.? However, when he got home he went back to drinking.? Patient feels that he is withdrawing and stated that he is very anxious and tremulous.? Patient in the past has had alcoholic seizures.? Patient stated that he did go to outpatient rehab however he had a slip.? Patient stated that he is going to go to inpatient rehab.? Today he was feeling tingling along with headaches, hallucinations pretty anxious.? He also stated that he has been throwing up blood for the last couple days.? Currently he denies any chest pain.? He did say that he had shortness of breath however related to the anxiety.? He did state that he was pretty weak.? Patient's alcohol level was 363.? Patient did state that he feels lot better since he has had the Librium.? He also appears to be red and swollen especially in the face. Patient is being admitted to the hospitalist service as inpatient Review of Systems Review of Systems: All systems reviewed & are unremarkable except as noted in HPI and below Exam Const: General: cooperative, healthy appearing, no acute distress, well developed, alert, awake, anxious, ill appearing, well nourished and overweight Nutritional Appearance: well nourished and overweight Orientation/consciousness: or
[2022-07-13 10:27] VITALS: PULSE 72
[2022-07-13] MEDS: ONDANSETRON INJ 4 MG/2 ML VIAL IV PUSH (10:33)
[2022-07-13] MEDS: LORazepam INJ (*CRX) 2 MG/ML VIAL 1 MG IV PUSH (10:33)
[2022-07-13 14:00] VITALS: BP 158/98; PULSE 77; RESP 12; TEMP 36.8; O2SAT 99
[2022-07-13] MEDS: DOCUSATE SODIUM 100 MG CAPSULE PO ×2 (14:26→20:49)
[2022-07-13] MEDS: polyethylene glycoL 3350 17 GM POWD.PACK PO (14:26)
[2022-07-13] MEDS: METOCLOPRAMIDE HCL 10 MG/10 ML SOLN UDC 5 MG PO ×2 (17:01→20:49)
[2022-07-13 20:00] VITALS: PULSE 77; RESP 12; O2SAT 99
[2022-07-13] MEDS: AMITRIPTYLINE HCL 25 MG TABLET 100 MG PO (20:49)
[2022-07-13] MEDS: PANTOPRAZOLE SODIUM IV 40 MG VIAL IV PUSH (20:49)
[2022-07-13 21:51] VITALS: BP 138/97; PULSE 72; RESP 17; TEMP 36.8; O2SAT 100
[2022-07-14] MEDS: chlordiazePOXIDE (*CRX) 25 MG CAPSULE 50 MG PO ×2 (05:57→11:44)
[2022-07-14] MEDS: METOCLOPRAMIDE HCL 10 MG/10 ML SOLN UDC 5 MG PO ×2 (05:57→11:45)
[2022-07-14 06:00] VITALS: BP 150/90; PULSE 103; RESP 19; TEMP 36.7; O2SAT 100
[2022-07-14 06:36] LABS: Basophils Percent Auto 0.6 % (0.2-1.2); Eosinophils Absolute Auto 0.1 K/mm3 (0-0.3); Eosinophils Percent Auto 2.4 % (0-4.4); Hemoglobin 14.4 g/dL (14.0-18.0); Immature Granulocyte Absolute 0.03 K/mm3 (0.00-0.031); Immature Granulocyte Percent A 0.6 % (0-0.5); Lymphocytes Absolute Auto 1.63 K/mm3 (0.9-3.2); Lymphocytes Percent Auto 32.5 % (18.3-44.2); Mean Corpuscular HGB Conc 34.3 g/dl (32-36); Mean Corpuscular Hemoglobin 31.6 pg (26-34); Mean Corpuscular Volume 92.1 fl (80-100); Mean Platelet Volume 10.2 fl (7.4-10.4); Monocytes Absolute Auto 0.3 K/mm3 (0.1-0.6); Monocytes Percent Auto 6.4 % (2.6-8.5); Neutrophils Absolute Auto 2.9 K/mm3 (1.3-6.7); Neutrophils Percent Auto 57.5 % (45.5-73.1); Platelet Count Result 140 k/mm3 (150-375); Red Blood Count 4.56 M/mm3 (4.6-6.20); Red Cell Distribution Width 13.2 % (11.5-14.5)
[2022-07-14 06:59] LABS: Alanine Aminotransferase 47 U/L (6-50); Albumin Level 4.6 g/dL (3.5-5.1); Alkaline Phosphatase 70 U/L (38-126); Anion Gap 10 mmol/L (8-16); Aspartate Amino Transferase 50 U/L (17-59); Bilirubin,Total 0.5 mg/dL (0.2-1.3); Blood Urea Nitrogen 11 mg/dL (9-20); Calcium 9.5 mg/dL (8.4-10.2); Carbon Dioxide 27 mmol/L (22-30); Chloride 101 mmol/L (98-107); Estimated CRCL calculation 100 ml/min; Estimated Glomerular Filt Rate > 60; Glucose 115 mg/dL (65-110); Magnesium 1.7 mg/dL (1.6-2.3); Potassium 3.7 mmol/L (3.4-5.0); Sodium 138 mmol/L (137-145)
[2022-07-14] MEDS: LIPASE/AMYLASE/PROTEASE 12,000 UNITS CAP 2 CAP PO ×2 (09:44→11:39)
[2022-07-14] MEDS: levETIRAcetam 500 MG TABLET PO (09:44)
[2022-07-14] MEDS: polyethylene glycoL 3350 17 GM POWD.PACK PO (09:44)
[2022-07-14] MEDS: GABAPENTIN 300 MG CAPSULE PO ×2 (09:44→13:03)
[2022-07-14] MEDS: DOCUSATE SODIUM 100 MG CAPSULE PO (09:44)
[2022-07-14] MEDS: THIAMINE HCL 100 MG TABLET PO (09:44)
[2022-07-14] MEDS: FOLIC ACID 1 MG TABLET PO (09:44)
[2022-07-14] MEDS: busPIRone HCL 10 MG TABLET PO ×2 (09:44→13:03)
[2022-07-14] MEDS: PANTOPRAZOLE SODIUM IV 40 MG VIAL IV PUSH (09:45)
--- NOTE | 2022-07-14 10:30 | PM.DS ---
DS: Admitting Diagnosis Discharge Date 07/14/22 1030 Admitting Diagnosis ETOH detox DS: Discharge Diagnosis Discharge Diagnosis (1) Alcoholism: Code(s): F10.20 - Alcohol dependence, uncomplicated Status: Acute Assessment and Plan: Patient drinks 1 pint of whiskey per day Recently admitted and was DC'd to go to outpatient treatment center Patient with extensive history of alcohol withdrawal symptoms including alcohol withdrawal seizure ETOH is 363 CIWA protocol CIWA scores today 10 Continue Librium 50 mg PO q6h, titrate with CIWA scores Continue Ativan IV 1-2mg for CIWA 1mg >8<15, 2mg >15 Continue PO Keppra for withdrawal seizures Thiamine and folic acid supplementation Low threshold for transition to IMU for closer monitoring if CIWA scores become more elevated or symptoms progress Nausea persistent give one dose of IV Reglan (2) Depression with anxiety: Code(s): F41.8 - Other specified anxiety disorders Status: Acute Assessment and Plan: No acute issues. Continue buspirone and amitriptyline IV ativan on board for break through anxiety (3) Hypertension: Code(s): I10 - Essential (primary) hypertension Status: Acute Assessment and Plan: current BP is 153/96 Resume home lisinopril Monitor BP trends Adjust therapy as indicated DS: Summary Hospital Course Hospital Course: Patient is a 31-year-old male with a past medical history of pancreatitis, alcohol withdrawal, seizures, thrombocytopenia who presented to the ED with complaints of vomiting and alcohol withdrawal. Upon arrival patient was noted to have a CIWA score of greater than 15. Ativan and and Librium was started. Patient was also having problems with vomiting. Reglan has been added. Folic acid and thiamine have also been added for further treatment. Blood pressure was noted to be a little elevated however has been stable. Patient states that he feels pretty good today. He also stated that he was able to eat is trying keep his food down. He still has not had a bowel movement added this caudal for further support. Abdominal x-ray does not show any obstruction or reason for constipation. I did update his mother. Patient stable for discharge at this time. Patient is wanting to go as he does have a bed at the rehab center coming up tomorrow. Labs and vital signs remained stable. Will send patient home with some oral Reglan did instruct him not to take it if he does not need it. Patient is medically discharged and is medically stable for rehab at this time. Patient is A&O x4. He denies any chest pain, shortness a breath, nausea, vomiting, diarrhea, constipation, weakness or fatigue. Patient has been able to eat and hold down water and drinks. Labs are all stable including liver enzymes, renal function, blood counts. Status at Discharge Functional status at discharge: independent ambulation Overall status at discharge: patient is progressing back to baseline Time Spent with Patient Time attestation: Total time spent providing and/or coordinating discharge services: 36 minutes Time spent: Greater than 30 minutes Specific discharge activities: Diagnostic testing, chart review, developing a treatment plan, education, care coordination documentation, physical exam, result review Exam Const: General: cooperative, healthy appearing, no acute distress, well developed, alert, awake, anxious, well nourished and overweight Nutritional Appearance: well nourished and overweight Orientation/consciousness: oriented to person, oriented to place, oriented to time and patient oriented x3 Limitations: no limitations HENMT: Head: normal to inspection Ears: hearing grossly normal bilaterally Face/Nose/Sinus: Normal external nose present Mouth: Yes Normal oral and palatal mucosa present, Yes lip normal and Yes tongue normal Teeth and gingiva: abnormal tooth and
[2022-07-14 10:48] VITALS: O2SAT 97
[2022-07-14] MEDS: ACETAMINOPHEN 500 MG TABLET 1000 MG PO (11:39)
[2022-07-14] MEDS: KETOROLAC 30 MG/ML VIAL (*BKC) IV PUSH (11:41)
[2022-07-14] MEDS: BISACODYL 5 MG TABLET EC 15 MG PO (11:50)
[2022-07-14 14:00] VITALS: BP 137/89; PULSE 69; RESP 18; TEMP 36.4; O2SAT 100
== END 2022-07-14 15:45 | disposition home or self-care (01) | DRG 897 ==
LOC: ANHED 04:24 → ANH3MEDSUR 12:02 → ANH2MED 07-15 11:47 → ANH3MEDSUR 07-15 11:47
PROVIDERS: Admitting Provider Family Medicine; Emergency Provider Emergency Medicine; Visit Provider Nurse Practitioner
DX: F10.230 Alcohol dependence with withdrawal, uncomplicated (principal); D69.6 Thrombocytopenia, unspecified; Y90.8 Blood alcohol level of 240 mg/100 ml or more; R11.2 Nausea with vomiting, unspecified; F17.210 Nicotine dependence, cigarettes, uncomplicated; F41.8 Other specified anxiety disorders; I10 Essential (primary) hypertension; Z20.822 Contact with and (suspected) exposure to COVID-19
CPT/HCPCS: 36415; 74018; 80053; 80307; 82948; 83690; 83735; 85025; 85055; 85610; 85730; 96361; 96374; 96375; 96376; 99285; A9270; C9113; C9803; J1885; J2060; J2405; J2765; J3411; J3475; J7030; U0003; U0005

== ENCOUNTER 2023-05-31 22:47 | Inpatient (IN) | payer OTHER, SELFPAY ==
--- NOTE | ~2023-05-31 | CT_ITS ---
CT of the Abdomen and Pelvis: Indication: Abdominal pain Technique: 2.5 mm axial scans were obtained through the abdomen and pelvis following intravenous adm inistration of 100 cc of Omnipaque 350. Dose reduction technique was used on this scan by utilizing a utomated exposure control and iterative reconstruction technique. The dose-length product (DLP) was 6 46.27 mGy-cm. COMPARISON: 04/14/2022 Findings: Scans through the lung bases demonstrate apparent prominent wall thickening of the visuali zed distal esophagus, suspicious for esophagitis. The liver, spleen, pancreas, gallbladder, adrenals and left kidney are within normal limits. Patient is status post right nephrectomy. No evidence of aortic aneurysm. No lymphadenopathy. No bowel obstruction or bowel wall thickening. There is no evidence to suggest acute appendicitis. Images through the pelvis were performed. Urinary bladder unremarkable. No pelvic mass seen. No ascit es. There is postsurgical change at the proximal right femur with ORIF hardware in place and heteroto pic ossification. Impression: Findings consistent with esophagitis. Stable postsurgical changes related to right nephrectomy and prior ORIF at the proximal right femur. Reviewed, dictated and finalized at location . Impression: Findings consistent with esophagitis. Stable postsurgical changes related to right nephrectomy and prior ORIF at the proximal right femur.
[2023-05-31 23:21] VITALS: BP 105/47; PULSE 130; RESP 24; TEMP 36.8; O2SAT 100
--- NOTE | 2023-05-31 23:25 | ECG_ITS ---
Measurements Intervals [place] Rate: 114 P: 74 MN: 142 QRS: 74 QRSD: 90 T: 49 QT: 313 QTc: 433 Interpretive Statements SINUS TACHYCARDIA LEFT ATRIAL ENLARGEMENT PEAKED T WAVES- CONSIDER HYPERKALEMIA BASELINE ARTIFACT- AVR, AVL, AVF, V1-V2 ABNORMAL ECG COMPARED TO ECG 04/14/2022 09:49:27 PEAKED T WAVES NOW PRESENT Electronically Signed On 06-01-2023 8:22:09 CDT by Jonathan Aquino D.O.
[2023-06-01] VITALS (31 sets, daily range): BP systolic 118–151; BP diastolic 68–97; PULSE 61–129; RESP 12–24; TEMP 36.6–36.9; O2SAT 93–100; BMI 26.2
[2023-06-01] MEDS: ONDANSETRON INJ 4 MG/2 ML VIAL IV PUSH (00:20)
--- NOTE | 2023-06-01 00:41 | ED.ALCOHOL ---
HPI - Alcohol General Chief Complaint: Alcohol Stated Complaint: vomiting blood, alcohol induced Time Seen by Provider: 06/01/23 00:08 Source: patient and family Limitations: no limitations History of Present Illness HPI narrative: Patient presents to the emergency department for nausea and vomiting and alcohol withdrawal. Patient states he has a history of alcohol withdrawal with seizures and hallucinations and admission to the ICU. Patient states that he has been sober for the past one year. However, he drank at least half a fifth of liquor Earlier today and his last drink was 4 PM and then he progressively became more nauseous and has had multiple episodes of non-bloody and non-bilious emesis and is unable to keep anything down and is now feeling tremulous and diaphoretic. Patient denies hallucinations. Patient denies seizures. Patient denies illicit drug use. Patient admits to history of being in rehabilitation with success. Patient denies anyone being sick around him. Patient denies fever, diarrhea, chest pain, shortness of breath, numbness, weakness, dysuria, rash. Patient admits to mild epigastric discomfort with the vomiting. Related Data Home Medications Medication Instructions Recorded Confirmed buspirone 10 mg tablet 10 mg PO TID 01/17/22 06/01/23 gabapentin 300 mg capsule 300 mg PO TID 01/17/22 06/01/23 levetiracetam 500 mg tablet 500 mg PO BID 01/17/22 06/01/23 amitriptyline 50 mg tablet 100 mg PO HS 01/20/22 06/01/23 Allergies Allergy/AdvReac Type Severity Reaction Status Date / Time Penicillins Allergy Unknown Hives Verified 06/01/23 00:03 diazepam [From Valium] AdvReac Severe Confusion Verified 06/01/23 00:03 Review of Systems Review of Systems: A 10 system review of systems was completed on the patient and is negative except for what is stated in the HPI. Nursing and ancillary documentation was reviewed. 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 His mother Molly will be his surrogate. 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 Smoking packs per day: 0.1 Smoking cigarettes per day: 2.0 Years smoked: 10 Smoking pack-years: 1.00 Smoking status: Current every day smoker Tobacco type: cigarettes Second hand tobacco smoke exposure: Yes Additional smoking assessment comments: 1 pack every 1 weeks Alcohol intake: current Drinks per week: 50 Alcohol use details: 1/5 of vodka a day Substance use: current Substance use type: marijuana Other substance usage details: drinks 1/5 of whiskey or vodka daily and beer Last use: 01/17/2022 Lack of Transportation: No Lack of Food: Never True Current Housing: I Have Housing Concerned About Future Housing: No Difficulty Paying Gas/Electric Bills: No Difficulty Paying for Meds: No Currently Unemployed: No Education: Bachelor's Degree Difficulty w/ Childcare or Family Care: No Living arrangements: with family Occupation/Education: occupation 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
[2023-06-01] MEDS: LORazepam INJ (*CRX) 2 MG/ML VIAL IV PUSH ×3 (00:55→21:37)
[2023-06-01] MEDS: THIAMINE HCL 200 MG/2 ML VIAL 100 MG IV PUSH (00:58)
[2023-06-01] MEDS: DEXTROSE 5%/0.9% SOD CHL 1,000 ML 125 ML IV CONT ×4 (01:00→20:12)
[2023-06-01 01:09] LABS: Basophils Absolute Auto 0.1 K/mm3 (0.0-0.1); Basophils Percent Auto 0.3 % (0.2-1.2); Hematocrit 47.7 % (42.0-52.0); Hemoglobin 17.6 g/dL (14.0-18.0); Immature Granulocyte Absolute 0.14 K/mm3 (0.00-0.031); Immature Granulocyte Percent A 0.7 % (0-0.5); Lymphocytes Absolute Auto 2.52 K/mm3 (0.9-3.2); Lymphocytes Percent Auto 12.4 % (18.3-44.2); Mean Corpuscular HGB Conc 36.9 g/dl (32-36); Mean Corpuscular Hemoglobin 31.1 pg (26-34); Mean Corpuscular Volume 84.3 fl (80-100); Mean Platelet Volume 9.3 fl (7.4-10.4); Monocytes Absolute Auto 0.6 K/mm3 (0.1-0.6); Monocytes Percent Auto 3.2 % (2.6-8.5); Neutrophils Absolute Auto 16.9 K/mm3 (1.3-6.7); Neutrophils Percent Auto 83.4 % (45.5-73.1); Platelet Count Result 307 k/mm3 (150-375); Red Blood Count 5.66 M/mm3 (4.6-6.20); Red Cell Distribution Width 14.2 % (11.5-14.5); White Blood Count 20.3 K/mm3 (4.5-10.0)
[2023-06-01 01:22] LABS: Phosphorus 1.9 mg/dL (2.5-4.5)
[2023-06-01 01:24] LABS: Prothrombin Time 13.4 Seconds (11.1-14.7)
[2023-06-01 01:25] LABS: Alanine Aminotransferase 41 U/L (6-50); Albumin Level 5.5 g/dL (3.5-5.1); Alkaline Phosphatase 94 U/L (38-126); Anion Gap 33 mmol/L (8-16); Aspartate Amino Transferase 38 U/L (17-59); Bilirubin,Total 0.7 mg/dL (0.2-1.3); Blood Urea Nitrogen 12 mg/dL (9-20); Calcium 9.9 mg/dL (8.4-10.2); Carbon Dioxide 12 mmol/L (22-30); Chloride 99 mmol/L (98-107); Estimated CRCL calculation 100 ml/min; Estimated Glomerular Filt Rate > 60; Glucose 157 mg/dL (65-110); Lipase 112 U/L (23-300); Potassium 3.7 mmol/L (3.4-5.0); Sodium 144 mmol/L (137-145)
[2023-06-01 01:29] LABS: Ethanol 250 mg/dL (<10)
[2023-06-01 01:36] LABS: Beta-Hydroxybutyrate/Acetoacetate 0.47 mmol/L (0.02-0.27)
[2023-06-01 01:52] LABS: Influenza A QL RT-PCR Negative (Negative); Influenza B QL RT-PCR Negative (Negative); SARS-CoV-2 RNA PCR Negative (Negative)
[2023-06-01] MEDS: METOCLOPRAMIDE HCL INJ 10 MG/2 ML VIAL IV PUSH (02:25)
[2023-06-01] MEDS: dexmedeTOMIDine 400 MCG/100 ML 400 MCG/100 ML BAG IV CONT (02:28)
[2023-06-01] MEDS: LACTATED RINGERS 1,000 ML 999 ML IV CONT ×2 (02:31→08:10)
[2023-06-01 03:54] LABS: Appearance Urine Clear (Clear); Bacteria Urine None Seen /hpf; Bilirubin Urine Negative (Negative); Blood Urine Trace (Negative); Color Urine Yellow (Yellow); Glucose Urine UA 3+ mg/dL (Negative); Ketones Urine 2+ mg/dL (Negative); Leukocyte Esterase Ur Negative LEU/UL (Negative); Nitrate Urine Negative (Negative); Non Pathogenic Casts 0-2; Protein Urine 3+ mg/dL (Negative); RBC Urine 0-2 /hpf (0-2); Specific Grav Ur 1.026 (1.001-1.035); Squamous Epithelial Cell Urine None seen /hpf (Few); Urobilinogen Urine 0.2 mg/dL (<2.0); WBC Urine 0-5 /hpf
[2023-06-01 03:58] LABS: Add Urine Microscopic? YES
[2023-06-01 04:10] LABS: Amphetamine Screen Urine Negative (Negative); Barbiturate Screen Urine Negative (Negative); Benzodiazepines Screen Urine Negative (Negative); Cannabinoid Screen Urine Negative (Negative); Cocaine Screen Urine Negative (Negative); Methadone Screen Urine Negative (Negative); Opiate Screen Urine Negative (Negative); Phencyclidine Screen Urine Negative (Negative)
[2023-06-01] MEDS: BENZOCAINE/MENTHOL (*BKC) 18 EA LOZENGE 1 LOZENGE PO ×2 (07:41→12:07)
[2023-06-01] MEDS: dexmedeTOMIDine 400 MCG/100 ML 400 MCG/100 ML BAG 13.91 MCG IV CONT (08:08)
[2023-06-01] MEDS: busPIRone HCL 10 MG TABLET PO ×3 (08:09→16:36)
[2023-06-01] MEDS: PANTOPRAZOLE SODIUM IV 40 MG VIAL IV PUSH ×2 (08:09→20:10)
[2023-06-01] MEDS: levETIRAcetam 500 MG TABLET PO ×2 (08:09→16:36)
[2023-06-01] MEDS: GABAPENTIN 300 MG CAPSULE PO ×3 (08:10→16:35)
[2023-06-01] MEDS: FOLIC ACID 1 MG/0.2 ML INJ IV PUSH (08:26)
--- NOTE | 2023-06-01 10:58 | PM.IMHP ---
H&P: HPI History of Present Illness Date/Time: 06/01/23 10:58 Chief Complaint: Patient presents to the emergency department for nausea and vomiting and alcohol withdrawal. Patient states he has a history of alcohol withdrawal with seizures and hallucinations and admission to the ICU. Patient states that he has been sober for the past one year. However, he drank at least half a fifth of liquor Earlier today and his last drink was 4 PM and then he progressively became more nauseous and has had multiple episodes of non-bloody and non-bilious emesis and is unable to keep anything down and is now feeling tremulous and diaphoretic. Patient denies hallucinations. Patient denies seizures. Patient denies illicit drug use. Patient admits to history of being in rehabilitation with success. Patient denies anyone being sick around him. Patient denies fever, diarrhea, chest pain, shortness of breath, numbness, weakness, dysuria, rash. Patient admits to mild epigastric discomfort with the vomiting. 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 His mother Molly will be his surrogate. 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 Smoking packs per day: 0.1 Smoking cigarettes per day: 2.0 Years smoked: 10 Smoking pack-years: 1.00 Smoking status: Current every day smoker Tobacco type: cigarettes Second hand tobacco smoke exposure: Yes Additional smoking assessment comments: 1 pack every 1 weeks Alcohol intake: current Drinks per week: 50 Alcohol use details: 1/5 of vodka a day Substance use: current Substance use type: marijuana Other substance usage details: drinks 1/5 of whiskey or vodka daily and beer Last use: 01/17/2022 Lack of Transportation: No Lack of Food: Never True Current Housing: I Have Housing Concerned About Future Housing: No Difficulty Paying Gas/Electric Bills: No Difficulty Paying for Meds: No Currently Unemployed: No Education: Bachelor's Degree Difficulty w/ Childcare or Family Care: No Living arrangements: with family Occupation/Education: occupation 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 blood products: Yes Meds Home Medications and Allergies Home Medications Medication Instructions Recorded Confirmed Type buspirone 10 mg tablet 10 mg PO TID 01/17/22 06/01/23 History gabapentin 300 mg capsule 300 mg PO TID 01/17/22 06/01/23 History levetiracetam 500 mg tablet 500 mg PO BID 01/17/22 06/01/23 History amitriptyline 50 mg tablet 100 mg PO HS 01/20/22 06/01/23 History Allergies Allergy/AdvReac Type Severity Reaction Status Date / Time Penicillins Allergy Unknown Hives Verified 06/01/23 00:03 diazepam [From Valium] AdvReac Severe Confusion Verified 06/01/23 00:03 Vital Signs Vital Signs - 24 hr 05/31/23 23:21 06/01/23 00:04 06/01/23 02:02 Temperature 98.3 F Pulse Rate 130 H 118 H Respiratory Rate 24 H 24 H 20 Blood Pressure 105/4
[2023-06-01] MEDS: ACETAMINOPHEN 325 MG TABLET 650 MG PO ×2 (11:05→18:21)
[2023-06-01] MEDS: chlordiazePOXIDE (*CRX) 25 MG CAPSULE 50 MG PO ×2 (12:06→18:21)
--- NOTE | 2023-06-01 12:44 | WPDCNINT ---
Assessment and Plan Assessment and plan (1) Alcohol withdrawal syndrome: Code(s): F10.239 - Alcohol dependence with withdrawal, unspecified Status: Acute Assessment and Plan: Patient was sober for 1 year and started to drain, he stated he had half of a 5th of liquor -patient presented with elevated alcohol levels of 250 -negative urine drug screen -patient was tremulous, tachycardic, tachypneic, diaphoretic. Likely withdrawal symptoms from alcohol -CIWA scores were elevated, patient was transferred to the ICU for Precedex infusion -continue Precedex infusion for now -will give additional IV fluids -patient still remains pleasant and mildly anxious -continue folic acid and thiamine -continue maintenance IV fluids (2) Depression with anxiety: Code(s): F41.8 - Other specified anxiety disorders Status: Acute Assessment and Plan: Continue Precedex infusion for now -started patient on Librium -also started patient on his home meds BuSpar, amitriptyline, gabapentin and Keppra. (3) Chronic pancreatitis: Code(s): K86.1 - Other chronic pancreatitis Status: Acute Assessment and Plan: Lipase is normal, continue IV fluids Plan DVT prophylaxis: Lovenox Stress ulcer prophylaxis: Not in Nutrition: Clear liquid diet, advanced as tolerated Code Status: Full code Critical Care Time Spent: 47 minutes Due to a high probability of clinically significant, life threatening deterioration, the patient required my highest level of preparedness to intervene emergently and I personally spent this critical care time directly and personally managing the patient. This critical care time included obtaining a history; examining the patient; pulse oximetry; ordering and review of studies; arranging urgent treatment with development of a management plan; evaluation of patient's response to treatment; frequent reassessment; and discussions with other providers. It was exclusive of separately billable procedures and treating other patients and teaching time. Please see Assessment and Plan section and the rest of the note for further information on patient assessment and treatment This dictation may have been done utilizing a voice recognition system. Attempts have been made to correct errors. However, there may be uncorrected grammatical, spelling, and recognitions errors present. [employer] Consult Note Consult date: 06/01/23 Reason for consult: Alcohol withdrawal HPI: Niles Díaz is a 32 year old male with past medical history of alcohol withdrawal syndrome, alcoholism, depression with anxiety, elevated LFTs, erosive esophagitis, hypomagnesemia, leukopenia, thrombocytopenia, hide injury presented the ED on 05/31/2023 with complains of coffee-ground emesis, tremors, tachycardia, nausea, vomiting, diaphoresis, psychomotor agitation and anxiety. Patient did not have any seizures, hallucinations or delirium. Patient was given Ativan, started on thiamine and fluids. CIWA score was 22, patient was admitted to the ICU for further management with Precedex infusion. Patient had abdominal pain along with nausea and vomiting, CT scan of the abdomen and pelvis showed findings consistent with esophagitis, stable postsurgical changes related to right nephrectomy and prior ORIF at the proximal right femur. Patient denies any illicit drug use. States he has been sober for 1 year and he drank at least half of a 5th of liquor on the day of admission. He has been admitted to a rehab with success. WBC 20.3, hemoglobin 7.6, platelets 30.7. INR of 1.0, electrolytes were within normal limits, creatinine of 1.10, LFTs within normal limits, total bili of 0.7. UA was not reflective of UTI. Urine tox screen was negative, alcohol levels were 250. Patient was negative for SARS-CoV-2 PCR, influenza A and B. patient was transferred to the ICU for Precedex infusion Patient seen and examined this morning, pleasant gentleman in no acute
[2023-06-01] MEDS: dexmedeTOMIDine 400 MCG/100 ML 400 MCG/100 ML BAG 16.22 MCG IV CONT (14:48)
[2023-06-01] MEDS: AMITRIPTYLINE HCL 25 MG TABLET 100 MG PO (20:10)
[2023-06-01] MEDS: dexmedeTOMIDine 400 MCG/100 ML 400 MCG/100 ML BAG 20.86 MCG IV CONT (20:12)
[2023-06-02] VITALS (20 sets, daily range): BP systolic 116–146; BP diastolic 66–102; PULSE 60–115; RESP 14–25; TEMP 36.6–36.9; O2SAT 92–100
[2023-06-02] MEDS: dexmedeTOMIDine 400 MCG/100 ML 400 MCG/100 ML BAG 18.54 MCG IV CONT (00:49)
[2023-06-02] MEDS: chlordiazePOXIDE (*CRX) 25 MG CAPSULE 50 MG PO ×5 (00:49→23:08)
[2023-06-02] MEDS: ACETAMINOPHEN 325 MG TABLET 650 MG PO ×4 (03:00→23:09)
[2023-06-02] MEDS: DEXTROSE 5%/0.9% SOD CHL 1,000 ML 125 ML IV CONT (04:20)
[2023-06-02 04:39] LABS: Basophils Percent Auto 0.3 % (0.2-1.2); Eosinophils Percent Auto 0.2 % (0-4.4); Hematocrit 44.2 % (42.0-52.0); Immature Granulocyte Absolute 0.03 K/mm3 (0.00-0.031); Immature Granulocyte Percent A 0.2 % (0-0.5); Lymphocytes Absolute Auto 2.01 K/mm3 (0.9-3.2); Lymphocytes Percent Auto 15.9 % (18.3-44.2); Mean Corpuscular HGB Conc 33.9 g/dl (32-36); Mean Corpuscular Hemoglobin 30.7 pg (26-34); Mean Corpuscular Volume 90.6 fl (80-100); Mean Platelet Volume 9.5 fl (7.4-10.4); Monocytes Absolute Auto 0.6 K/mm3 (0.1-0.6); Monocytes Percent Auto 4.6 % (2.6-8.5); Neutrophils Percent Auto 78.8 % (45.5-73.1); Platelet Count Result 145 k/mm3 (150-375); Red Blood Count 4.88 M/mm3 (4.6-6.20); Red Cell Distribution Width 13.6 % (11.5-14.5); White Blood Count 12.7 K/mm3 (4.5-10.0)
[2023-06-02 04:49] LABS: Alanine Aminotransferase 31 U/L (6-50); Albumin Level 4.1 g/dL (3.5-5.1); Alkaline Phosphatase 64 U/L (38-126); Anion Gap 11 mmol/L (8-16); Aspartate Amino Transferase 28 U/L (17-59); Bilirubin,Total 1.2 mg/dL (0.2-1.3); Blood Urea Nitrogen 8 mg/dL (9-20); Calcium 8.7 mg/dL (8.4-10.2); Carbon Dioxide 20 mmol/L (22-30); Chloride 105 mmol/L (98-107); Estimated CRCL calculation 134 ml/min; Estimated Glomerular Filt Rate > 60; Glucose 102 mg/dL (65-110); Magnesium 2.1 mg/dL (1.6-2.3); Phosphorus 2.2 mg/dL (2.5-4.5); Potassium 3.6 mmol/L (3.4-5.0); Sodium 136 mmol/L (137-145)
[2023-06-02] MEDS: dexmedeTOMIDine 400 MCG/100 ML 400 MCG/100 ML BAG 16.22 MCG IV CONT (06:03)
[2023-06-02] MEDS: levETIRAcetam 500 MG TABLET PO ×2 (08:08→16:35)
[2023-06-02] MEDS: PANTOPRAZOLE SODIUM IV 40 MG VIAL IV PUSH ×2 (08:09→21:01)
[2023-06-02] MEDS: busPIRone HCL 10 MG TABLET PO ×3 (08:09→16:35)
[2023-06-02] MEDS: GABAPENTIN 300 MG CAPSULE PO ×3 (08:09→16:35)
[2023-06-02] MEDS: FOLIC ACID 1 MG/0.2 ML INJ IV PUSH (08:09)
[2023-06-02] MEDS: ENOXAPARIN 40 MG/0.4 ML SYRINGE SUB-Q (08:11)
[2023-06-02 08:31] LABS: Strep Group A RT-PCR NOT DETECTED (Negative)
--- NOTE | 2023-06-02 08:39 | WPDINTPN ---
Progress Note: A&P Assessment and Plan (1) Alcohol withdrawal syndrome: Code(s): F10.239 - Alcohol dependence with withdrawal, unspecified Status: Acute Assessment and Plan: Patient was sober for 1 year and started to drain, he stated he had half of a 5th of liquor -patient presented with elevated alcohol levels of 250 -negative urine drug screen -patient was tremulous, tachycardic, tachypneic, diaphoretic. Likely withdrawal symptoms from alcohol -CIWA scores were elevated, patient was transferred to the ICU for Precedex infusion -wean Precedex infusion for now -discontinue IV fluids -continue Librium -states his anxiety is better -continue folic acid and thiamine (2) Depression with anxiety: Code(s): F41.8 - Other specified anxiety disorders Status: Acute Assessment and Plan: Continue Precedex infusion for now -continue Librium -continue patient's home meds BuSpar, amitriptyline, gabapentin and Keppra. (3) Chronic pancreatitis: Code(s): K86.1 - Other chronic pancreatitis Status: Acute Assessment and Plan: Lipase is normal, will DC IV fluids patient tolerating p.o. Plan DVT prophylaxis: Lovenox Stress ulcer prophylaxis: Not indicated Nutrition: Will advance diet Code Status: Full code Critical Care Time Spent: 32 minutes Due to a high probability of clinically significant, life threatening deterioration, the patient required my highest level of preparedness to intervene emergently and I personally spent this critical care time directly and personally managing the patient. This critical care time included obtaining a history; examining the patient; pulse oximetry; ordering and review of studies; arranging urgent treatment with development of a management plan; evaluation of patient's response to treatment; frequent reassessment; and discussions with other providers. It was exclusive of separately billable procedures and treating other patients and teaching time. Please see Assessment and Plan section and the rest of the note for further information on patient assessment and treatment This dictation may have been done utilizing a voice recognition system. Attempts have been made to correct errors. However, there may be uncorrected grammatical, spelling, and recognitions errors present. Subjective Date/time seen: 06/02/23 08:39 Interval history: Reason for consult: Alcohol withdrawal, anxiety 06/02/2023: Patient seen and examined the ICU, remains Precedex infusion, patient is calm, not agitated. States he is less anxious this morning. Complains of sore throat. Hemodynamically stable, tolerating p.o. diet, adequate urine output. Denies any nausea, vomiting, abdominal pain at this time. Denies any chest pain or shortness of breath. States he is tired Review of Systems Review of Systems: All systems reviewed & are unremarkable except as noted in HPI and below Exam Narrative: General: Pleasant young gentleman in no acute distress at this time HEENT:? Pupils are reactive unequal, sclera is clear Neck:? Supple Respiratory:? Clear to auscultation bilaterally Cardiac:? S1-S2 normal, regular rhythm Abdomen:? Soft, nontender, nondistended, normoactive bowel sounds Extremities:? No edema, palpable pedal pulses Neuro:? Patient is awake, alert, oriented. Does have some tremors on bilateral upper extremities but able to answer questions appropriately and follows simple commands Skin:? Warm and dry, old midline surgical scar on the abdomen Psych:? Anxious Objective Data Vital Signs Vital Signs: Vital Signs - 24 hr 06/01/23 10:01 06/01/23 10:00 06/01/23 10:00 Temperature Pulse Rate 76 78 78 Pulse Rate [Monitor] Respiratory Rate 21 H 23 H Blood Pressure 123/82 Pulse Oximetry 99 Oxygen Delivery 06/01/23 11:00 06/01/23 12:00 06/01/23 12:00 Temperature 97.8 F Pulse Rate 88 72 81 Pulse Rate [Monitor] Respiratory Rate 22 H 14
[2023-06-02] MEDS: ONDANSETRON INJ 4 MG/2 ML VIAL IV PUSH ×2 (09:33→17:17)
[2023-06-02] MEDS: LORazepam INJ (*CRX) 2 MG/ML VIAL IV PUSH ×2 (09:33→21:01)
--- NOTE | 2023-06-02 11:47 | PM.IMPN ---
Progress Note: A&P Assessment and Plan (1) Alcohol withdrawal syndrome: Code(s): F10.239 - Alcohol dependence with withdrawal, unspecified Status: Acute Assessment and Plan: doing well continue precedex - per ICU monitor (2) Depression with anxiety: Code(s): F41.8 - Other specified anxiety disorders Status: Acute Assessment and Plan: Continue Precedex infusion for now -continue Librium -continue patient's home meds BuSpar, amitriptyline, gabapentin and Keppra. (3) Chronic pancreatitis: Code(s): K86.1 - Other chronic pancreatitis Status: Acute Assessment and Plan: Lipase is normal, will DC IV fluids patient tolerating p.o. Plan DVT prophylaxis: Lovenox Stress ulcer prophylaxis: Not indicated Nutrition: Will advance diet Code Status: Full code Critical Care Time Spent: 32 minutes Due to a high probability of clinically significant, life threatening deterioration, the patient required my highest level of preparedness to intervene emergently and I personally spent this critical care time directly and personally managing the patient. This critical care time included obtaining a history; examining the patient; pulse oximetry; ordering and review of studies; arranging urgent treatment with development of a management plan; evaluation of patient's response to treatment; frequent reassessment; and discussions with other providers. It was exclusive of separately billable procedures and treating other patients and teaching time. Please see Assessment and Plan section and the rest of the note for further information on patient assessment and treatment This dictation may have been done utilizing a voice recognition system. Attempts have been made to correct errors. However, there may be uncorrected grammatical, spelling, and recognitions errors present. Subjective Date/time seen: 06/02/23 11:47 Interval history: No complaints Exam Narrative: General: Pleasant young gentleman in no acute distress at this time HEENT:? Pupils are reactive unequal, sclera is clear Neck:? Supple Respiratory:? Clear to auscultation bilaterally Cardiac:? S1-S2 normal, regular rhythm Abdomen:? Soft, nontender, nondistended, normoactive bowel sounds Extremities:? No edema, palpable pedal pulses Neuro:? Patient is awake, alert, oriented. Does have some tremors on bilateral upper extremities but able to answer questions appropriately and follows simple commands Skin:? Warm and dry, old midline surgical scar on the abdomen Psych:? Anxious Objective Data Vital Signs Vital Signs: Vital Signs - 24 hr 06/01/23 12:00 06/01/23 12:00 06/01/23 12:00 Temperature 97.8 F Pulse Rate 72 81 Pulse Rate [Monitor] Respiratory Rate 14 Blood Pressure 135/88 Pulse Oximetry 100 100 Oxygen Delivery Room Air 06/01/23 14:00 06/01/23 14:00 06/01/23 14:43 Temperature Pulse Rate 61 61 61 Pulse Rate [Monitor] Respiratory Rate 18 18 Blood Pressure 134/81 Pulse Oximetry 97 Oxygen Delivery 06/01/23 14:48 06/01/23 16:44 06/01/23 16:00 Temperature Pulse Rate 73 66 79 Pulse Rate [Monitor] Respiratory Rate 17 20 Blood Pressure Pulse Oximetry Oxygen Delivery 06/01/23 16:00 06/01/23 16:00 06/01/23 16:00 Temperature 98.1 F Pulse Rate 94 Pulse Rate [Monitor] Respiratory Rate 20 Blood Pressure 137/89 137/89 Pulse Oximetry 97 96 Oxygen Delivery Room Air 06/01/23 18:00 06/01/23 18:00 06/01/23 20:12 Temperature Pulse Rate 104 H 104 H 67 Pulse Rate [Monitor] Respiratory Rate 18 18 Blood Pressure 134/85 Pulse Oximetry 93 Oxygen Delivery 06/01/23 20:00 06/01/23 21:36 06/01/23 20:00 Temperature Pulse Rate Pulse Rate [Monitor] 69 70 Respiratory Rate Blood Pressure Pulse Oximetry 100 Oxygen Delivery Room Air 06/01/23 20:08 06/01/23 20:08 06/01/23 22:00 Temperature 97.9 F Pulse Rate
[2023-06-02] MEDS: AMITRIPTYLINE HCL 25 MG TABLET 100 MG PO (21:00)
[2023-06-03] VITALS (13 sets, daily range): BP systolic 131–156; BP diastolic 85–104; PULSE 70–120; RESP 14–22; TEMP 36.3–37.5; O2SAT 94–100
[2023-06-03 03:53] LABS: Basophils Percent Auto 0.5 % (0.2-1.2); Eosinophils Absolute Auto 0.2 K/mm3 (0-0.3); Eosinophils Percent Auto 1.9 % (0-4.4); Hemoglobin 14.3 g/dL (14.0-18.0); Immature Granulocyte Absolute 0.02 K/mm3 (0.00-0.031); Immature Granulocyte Percent A 0.2 % (0-0.5); Lymphocytes Absolute Auto 2.34 K/mm3 (0.9-3.2); Lymphocytes Percent Auto 27.2 % (18.3-44.2); Mean Corpuscular HGB Conc 35.8 g/dl (32-36); Mean Corpuscular Hemoglobin 31.2 pg (26-34); Mean Corpuscular Volume 87.3 fl (80-100); Mean Platelet Volume 9.5 fl (7.4-10.4); Monocytes Absolute Auto 0.4 K/mm3 (0.1-0.6); Monocytes Percent Auto 4.8 % (2.6-8.5); Neutrophils Absolute Auto 5.6 K/mm3 (1.3-6.7); Neutrophils Percent Auto 65.4 % (45.5-73.1); Platelet Count Result 153 k/mm3 (150-375); Red Blood Count 4.58 M/mm3 (4.6-6.20); Red Cell Distribution Width 13.5 % (11.5-14.5); White Blood Count 8.6 K/mm3 (4.5-10.0)
[2023-06-03 04:02] LABS: Alanine Aminotransferase 28 U/L (6-50); Alkaline Phosphatase 69 U/L (38-126); Anion Gap 11 mmol/L (8-16); Aspartate Amino Transferase 27 U/L (17-59); Bilirubin,Total 0.8 mg/dL (0.2-1.3); Blood Urea Nitrogen 8 mg/dL (9-20); Calcium 8.9 mg/dL (8.4-10.2); Carbon Dioxide 23 mmol/L (22-30); Chloride 106 mmol/L (98-107); Estimated CRCL calculation 109 ml/min; Estimated Glomerular Filt Rate > 60; Glucose 93 mg/dL (65-110); Magnesium 1.9 mg/dL (1.6-2.3); Phosphorus 3.5 mg/dL (2.5-4.5); Potassium 3.3 mmol/L (3.4-5.0); Sodium 140 mmol/L (137-145)
[2023-06-03] MEDS: chlordiazePOXIDE (*CRX) 25 MG CAPSULE 50 MG PO ×3 (06:17→17:07)
[2023-06-03] MEDS: ACETAMINOPHEN 325 MG TABLET 650 MG PO (06:18)
[2023-06-03] MEDS: PANTOPRAZOLE SODIUM IV 40 MG VIAL IV PUSH ×2 (08:17→22:02)
[2023-06-03] MEDS: levETIRAcetam 500 MG TABLET PO ×2 (08:18→16:40)
[2023-06-03] MEDS: ENOXAPARIN 40 MG/0.4 ML SYRINGE SUB-Q (08:18)
[2023-06-03] MEDS: POTASSIUM CHLORIDE 20 MEQ PACKET (FOR LIQUID) 40 MEQ PO (08:18)
[2023-06-03] MEDS: GABAPENTIN 300 MG CAPSULE PO ×3 (08:18→16:40)
[2023-06-03] MEDS: FOLIC ACID 1 MG/0.2 ML INJ IV PUSH (08:19)
[2023-06-03] MEDS: busPIRone HCL 10 MG TABLET PO ×3 (08:19→16:40)
--- NOTE | 2023-06-03 08:35 | WPDINTPN ---
Progress Note: A&P Assessment and Plan (1) Alcohol withdrawal syndrome: Code(s): F10.239 - Alcohol dependence with withdrawal, unspecified Status: Acute Assessment and Plan: Patient was sober for 1 year and started to drain, he stated he had half of a 5th of liquor -patient presented with elevated alcohol levels of 250 -negative urine drug screen -on admission patient was tremulous, tachycardic, tachypneic, diaphoretic. Likely withdrawal symptoms from alcohol -CIWA scores were elevated, patient was transferred to the ICU for Precedex infusion -OFF Precedex infusion -continue Librium, p.r.n. Ativan -states his anxiety is better -continue folic acid and thiamine (2) Depression with anxiety: Code(s): F41.8 - Other specified anxiety disorders Status: Acute Assessment and Plan: -continue Librium -continue patient's home meds BuSpar, amitriptyline, gabapentin and Keppra. (3) Chronic pancreatitis: Code(s): K86.1 - Other chronic pancreatitis Status: Acute Assessment and Plan: Lipase is normal, will DC IV fluids patient tolerating p.o. Plan DVT prophylaxis: Lovenox Stress ulcer prophylaxis: Protonix Nutrition: Regular diet Patient has heartburn, ordered Tums Code Status: Full code Critical Care Time Spent: 32 minutes Due to a high probability of clinically significant, life threatening deterioration, the patient required my highest level of preparedness to intervene emergently and I personally spent this critical care time directly and personally managing the patient. This critical care time included obtaining a history; examining the patient; pulse oximetry; ordering and review of studies; arranging urgent treatment with development of a management plan; evaluation of patient's response to treatment; frequent reassessment; and discussions with other providers. It was exclusive of separately billable procedures and treating other patients and teaching time. Please see Assessment and Plan section and the rest of the note for further information on patient assessment and treatment This dictation may have been done utilizing a voice recognition system. Attempts have been made to correct errors. However, there may be uncorrected grammatical, spelling, and recognitions errors present. Subjective Date/time seen: 06/03/23 08:35 Interval history: Reason for consult: Alcohol withdrawal, anxiety 06/03/2023: Patient seen and examined the ICU, OFF Precedex infusion, patient is calm, not agitated. States he is less anxious this morning. Planes of epigastric pain after eating his breakfast. He states he feels like heartburn. Hemodynamically stable, tolerating p.o. diet, adequate urine output. Denies any nausea, vomiting, abdominal pain at this time. Chest tightness shortness breath Review of Systems Review of Systems: All systems reviewed & are unremarkable except as noted in HPI and below Exam Narrative: General: Pleasant young gentleman in no acute distress at this time HEENT:? Pupils are reactive unequal, sclera is clear Neck:? Supple Respiratory:? Clear to auscultation bilaterally Cardiac:? S1-S2 normal, regular rhythm Abdomen:? Soft, nontender, nondistended, normoactive bowel sounds Extremities:? No edema, palpable pedal pulses Neuro:? Patient is awake, alert, oriented. Minimal tremor extremities. Patient answers to all questions and follows simple commands Skin:? Warm and dry, old midline surgical scar on the abdomen Psych:? Anxious Objective Data Vital Signs Vital Signs: Vital Signs - 24 hr 06/02/23 09:13 06/02/23 10:00 06/02/23 10:00 Temperature Pulse Rate 74 80 80 Pulse Rate [Monitor] Respiratory Rate 22 H 22 H Blood Pressure 116/66 Pulse Oximetry 95 Oxygen Delivery 06/02/23 10:30 06/02/23 12:00 06/02/23 12:00 Temperature Pulse Rate 74 68 65 Pulse Rate [Monitor] Respiratory Rate 23 H 20 Blood Pressure P
[2023-06-03] MEDS: CALCIUM CARBONATE (TUMS) 500 MG (200 MG ELEMENTAL) PO (08:56)
[2023-06-03] MEDS: LORazepam INJ (*CRX) 2 MG/ML VIAL IV PUSH (08:56)
--- NOTE | 2023-06-03 10:41 | PM.IMPN ---
Progress Note: A&P Assessment and Plan (1) Alcohol withdrawal syndrome: Code(s): F10.239 - Alcohol dependence with withdrawal, unspecified Status: Acute Assessment and Plan: Ativan and Librium. Precedex (2) Depression with anxiety: Code(s): F41.8 - Other specified anxiety disorders Status: Acute Assessment and Plan: -continue Librium -continue patient's home meds BuSpar, amitriptyline, gabapentin and Keppra. (3) Chronic pancreatitis: Code(s): K86.1 - Other chronic pancreatitis Status: Acute Assessment and Plan: Lipase is normal, will DC IV fluids patient tolerating p.o. Plan DVT prophylaxis: Lovenox Stress ulcer prophylaxis: Protonix Nutrition: Regular diet Patient has heartburn, ordered Tums Code Status: Full code Critical Care Time Spent: 32 minutes Due to a high probability of clinically significant, life threatening deterioration, the patient required my highest level of preparedness to intervene emergently and I personally spent this critical care time directly and personally managing the patient. This critical care time included obtaining a history; examining the patient; pulse oximetry; ordering and review of studies; arranging urgent treatment with development of a management plan; evaluation of patient's response to treatment; frequent reassessment; and discussions with other providers. It was exclusive of separately billable procedures and treating other patients and teaching time. Please see Assessment and Plan section and the rest of the note for further information on patient assessment and treatment This dictation may have been done utilizing a voice recognition system. Attempts have been made to correct errors. However, there may be uncorrected grammatical, spelling, and recognitions errors present. Subjective Date/time seen: 06/03/23 10:41 Interval history: No complaints Exam Narrative: General: Pleasant young gentleman in no acute distress at this time HEENT:? Pupils are reactive unequal, sclera is clear Neck:? Supple Respiratory:? Clear to auscultation bilaterally Cardiac:? S1-S2 normal, regular rhythm Abdomen:? Soft, nontender, nondistended, normoactive bowel sounds Extremities:? No edema, palpable pedal pulses Neuro:? Patient is awake, alert, oriented. Minimal tremor extremities. Patient answers to all questions and follows simple commands Skin:? Warm and dry, old midline surgical scar on the abdomen Psych:? Anxious Objective Data Vital Signs Vital Signs: Vital Signs - 24 hr 06/02/23 12:00 06/02/23 12:00 06/02/23 12:00 Temperature Pulse Rate 68 65 Pulse Rate [Monitor] Respiratory Rate 20 Blood Pressure Pulse Oximetry 96 Oxygen Delivery Room Air 06/02/23 12:00 06/02/23 13:45 06/02/23 12:00 Temperature 98.1 F Pulse Rate 70 83 Pulse Rate [Monitor] 83 Respiratory Rate 20 22 H Blood Pressure 121/83 121/83 Pulse Oximetry 95 Oxygen Delivery 06/02/23 14:00 06/02/23 14:00 06/02/23 14:54 Temperature Pulse Rate 82 82 82 Pulse Rate [Monitor] Respiratory Rate 20 22 H Blood Pressure 129/83 Pulse Oximetry 99 Oxygen Delivery 06/02/23 16:00 06/02/23 16:00 06/02/23 16:00 Temperature 98.1 F Pulse Rate 76 Pulse Rate [Monitor] 71 Respiratory Rate 20 Blood Pressure 133/81 133/81 Pulse Oximetry 98 96 Oxygen Delivery Room Air 06/02/23 16:00 06/02/23 18:00 06/02/23 18:00 Temperature Pulse Rate 72 115 H 115 H Pulse Rate [Monitor] Respiratory Rate 22 H Blood Pressure 123/76 Pulse Oximetry 97 Oxygen Delivery 06/02/23 20:00 06/02/23 20:00 06/02/23 20:00 Temperature 98.4 F Pulse Rate 101 H 101 H Pulse Rate [Monitor] Respiratory Rate 15 Blood Pressure 141/97 H Pulse Oximetry 100 Oxygen Delivery Room Air 06/02/23 22:00 06/02/23 22:00 06/02/23 23:30 Temperature Pulse Rate 113 H 113 H Pulse Rate [Monitor]
--- NOTE | 2023-06-03 11:45 | PC.NURSE ---
Pt. received from ICU at 11:45. Pt. oriented to unit policies and procedures.
--- NOTE | 2023-06-03 12:37 | PC.NURSE ---
This patient, Niles Díaz, was transferred to [facility] on 06/03/23 at 1120. Personal belongings sent with patient. Report given to RN. Appropriate documentation sent with patient.
[2023-06-03] MEDS: AMITRIPTYLINE HCL 25 MG TABLET 100 MG PO (21:21)
[2023-06-04] MEDS: ACETAMINOPHEN 325 MG TABLET 650 MG PO ×2 (00:02→08:06)
[2023-06-04 00:03] VITALS: PULSE 118
[2023-06-04 04:00] VITALS: PULSE 110
[2023-06-04] MEDS: chlordiazePOXIDE (*CRX) 25 MG CAPSULE 50 MG PO ×2 (06:11)
[2023-06-04 07:35] VITALS: BP 138/98; PULSE 103; RESP 18; TEMP 36.7; O2SAT 100
--- NOTE | 2023-06-04 08:04 | PM.DS ---
DS: Admitting Diagnosis Discharge Date 06/04/23 Admitting Diagnosis etoh withdrawal DS: Discharge Diagnosis Discharge Diagnosis (1) Alcohol withdrawal syndrome: Code(s): F10.239 - Alcohol dependence with withdrawal, unspecified Status: Acute Assessment and Plan: doing well (2) Depression with anxiety: Code(s): F41.8 - Other specified anxiety disorders Status: Acute Assessment and Plan: -continue Librium -continue patient's home meds BuSpar, amitriptyline, gabapentin and Keppra. (3) Chronic pancreatitis: Code(s): K86.1 - Other chronic pancreatitis Status: Acute Assessment and Plan: Lipase is normal, will DC IV fluids patient tolerating p.o. Plan DVT prophylaxis: Lovenox Stress ulcer prophylaxis: Protonix Nutrition: Regular diet Patient has heartburn, ordered Tums Code Status: Full code Critical Care Time Spent: 32 minutes Due to a high probability of clinically significant, life threatening deterioration, the patient required my highest level of preparedness to intervene emergently and I personally spent this critical care time directly and personally managing the patient. This critical care time included obtaining a history; examining the patient; pulse oximetry; ordering and review of studies; arranging urgent treatment with development of a management plan; evaluation of patient's response to treatment; frequent reassessment; and discussions with other providers. It was exclusive of separately billable procedures and treating other patients and teaching time. Please see Assessment and Plan section and the rest of the note for further information on patient assessment and treatment This dictation may have been done utilizing a voice recognition system. Attempts have been made to correct errors. However, there may be uncorrected grammatical, spelling, and recognitions errors present. DS: Summary Hospital Course Hospital Course: admitted for etoh withdrawal required precedex in icu, now doing much better ok for dc Time Spent with Patient Time attestation: Total time spent providing and/or coordinating discharge services: Exam Narrative: General: Pleasant young gentleman in no acute distress at this time HEENT:? Pupils are reactive unequal, sclera is clear Neck:? Supple Respiratory:? Clear to auscultation bilaterally Cardiac:? S1-S2 normal, regular rhythm Abdomen:? Soft, nontender, nondistended, normoactive bowel sounds Extremities:? No edema, palpable pedal pulses Neuro:? Patient is awake, alert, oriented. Minimal tremor extremities. Patient answers to all questions and follows simple commands Skin:? Warm and dry, old midline surgical scar on the abdomen Psych:? Anxious Discharge Plan Discharge Attending physician on discharge: Nam Bradley Consulting providers: Ana López Discharging Clinician: Nam Bradley Patient Disposition: Home, Self-Care Activity: as tolerated Diet: as tolerated Patient Instructions: Antibiotic Form Stand Alone Forms: General Discharge Information Follow-up/Referrals: PHYSICIAN NOT ON STAFF,NONSTAFF [Primary Care Provider] - Discharge Medications: Continued levetiracetam 500 mg tablet 500 mg PO BID buspirone 10 mg tablet 10 mg PO TID gabapentin 300 mg capsule 300 mg PO TID amitriptyline 50 mg tablet 100 mg PO HS MDD 100 Date of admission: 06/01/23 01:51 Primary Care Provider: PHYSICIAN NOT ON STAFF,NONSTAFF Admitting Provider: Ruthann Burkett V. Attending physician on admission: Ruthann Burkett V. Condition: Stable
[2023-06-04] MEDS: GABAPENTIN 300 MG CAPSULE PO (08:05)
[2023-06-04] MEDS: busPIRone HCL 10 MG TABLET PO (08:05)
[2023-06-04] MEDS: ENOXAPARIN 40 MG/0.4 ML SYRINGE SUB-Q (08:05)
[2023-06-04] MEDS: levETIRAcetam 500 MG TABLET PO (08:06)
[2023-06-04] MEDS: PANTOPRAZOLE SODIUM IV 40 MG VIAL IV PUSH (08:06)
== END 2023-06-04 08:55 | disposition home or self-care (01) | DRG 897 ==
LOC: ANHED 06-01 01:54 → ANHICU 06-01 02:24 → ANH3MEDSUR 06-03 11:44
PROVIDERS: Internal Medicine; Physician Assistant; Admitting Provider Internal Medicine; Emergency Provider Student in an Organized Health Care Education/Training Program; Visit Provider Chiropractor
DX: F10.239 Alcohol dependence with withdrawal, unspecified (principal); K86.1 Other chronic pancreatitis; E87.29 Other acidosis; K20.90 Esophagitis, unspecified without bleeding; F32.A Depression, unspecified; F41.9 Anxiety disorder, unspecified; F17.210 Nicotine dependence, cigarettes, uncomplicated; Z20.822 Contact with and (suspected) exposure to COVID-19; Z90.5 Acquired absence of kidney
CPT/HCPCS: 36415; 74177; 80053; 80307; 81001; 82010; 83690; 83735; 84100; 85025; 85610; 85730; 86850; 86900; 86901; 87636; 87651; 93005; 96374; 96375; 99285; A9270; C9113; J1650; J2060; J2405; J2765; J3411; J7042; J7120; Q9967

== ENCOUNTER 2024-11-28 01:58 | Emergency (ER) | payer OTHER, SELFPAY ==
--- OUTSIDE RECORDS SUMMARY | 2024-11-28 02:01 | XMS_ITS | Encounter Summary ---
Author Organization [facility] Healthcare Address [address] [place] [address] Care Team Providers Care Supervisor Assembly Stock Name Role Phone Mitchel Garibay DO Primary Care Provider [phone] Reason for Visit * Reason Onset Date Comments Medical Question/Miscellaneous 10/28/2024 Encounter Details Date Type Department Care Team (Late st Contact Info) Description 10/28/2024 Telephone [facility] Primary Care at [facility] [address] [place] [address] Mitchel Garibay DO [address] [facility] [address] [place] [address] Medical Question/Miscellaneous Social History Tobacco Use Types Packs/Day Years Used Date Smoking Tobacco: Some Days Smokeless Tobacco: Current Comments:1 pack per month Alcohol Use Standard Drinks/Week Comments Yes 0 (1 standard drink = 0.6 oz pur e alcohol) frequently - alcoholic [facility] Utilities Answer Date Recorded In the past 12 months has [employer] electric, gas, oil, or water company threatened to shut off services in your home? No 09/12/2024 Social Connection and Isolat ion Panel [NHANES] Answer Date Recorded In a typical week, how many times do you talk on the phone with family, friends, or neighbors? More than three times a week 09/12/2024 How often do you get togethe r with friends or relatives? More than three times a week 09/12/2024 How often do you attend chur ch or mandaen services? Never 09/12/2024 Do you belong to any clubs o r organizations such as samaritan groups, unions, fraternal or athletic groups, or school groups? No 09/12/2024 How often do you attend meet ings of the clubs or organizations you belong to? Never 09/12/2024 Are you , , di vorced, , never , or living with a partner? Living with partner 09/12/2024 Overall Financial Resource Strain (CARDIA) Answe r Date Recorded How hard is it for you to pa y for the very basics like food, housing, medical care, and heating? Not hard at all 09/12/2024 PHQ-2 Answer Date Recorded PHQ-2 Total Score (If total score is 3 or more points, staff should administer the PHQ-9) 0 08/16/2024 Hunger Vital Sign Answer Date Recorded Within the past 12 months, y ou worried that your food would run out before you got the money to buy more. Never true 09/12/20 24 Within the past 12 months, t he food you bought just didn't last and you didn't have money to get more. Never true 09/12/2024 PRAPARE - Transportation Answer Date Re corded In the past 12 months, has l ack of transportation kept you from medical appointments or from getting medications? No 08/25 In the past 12 months, has l ack of transportation kept you from meetings, work, or from getting things needed for daily living? No 09/12/2024 Housing Stability Vital Sign Answer Aldo e Recorded In the last 12 months, was t here a time when you were not able to pay the mortgage or rent on time? No 10/05/2023 In the last 12 months, how many places have you lived? 1 10/05/2023 In the last 12 months, was t here a time when you did not have a steady place to sleep or slept in a [place] (including now)? No 10/05/2023 Housing Stability Vital Sign Answer Aldo e Recorded In the last 12 months, was t here a time when you were not able to pay the mortgage or rent on time? No 09/12/2024 In the past 12 months, how m any times have you moved where you were living? 0 09/12/2024 At any time in the past 12 m [facility], were you homeless or living in a [place] facility (including now)? No 09/12/2024 Personal Safety Answer Date Recorded Have you ever been in or are you currently in a harmful physical or emotional relationship or is someone making you feel afraid or unsafe? 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 Please resend. PHONE BETTING CLERK * Telephone Encounter - Juliana Jaeger - 10/28/2024 3:05 PM CST [facility] * Telephone Encounter - Summer Pruett - 10/28/2024 2:33 PM CST Medical Question/Miscellaneous Caller???s Concern: pt has spoke with third green party in regards to FMLA forms, Stated SECTION D was not completed per office. Requesting for office to have section D completed (said examples are listed on form) And send back to third green party NEW Please advise Does message need to be routed? Yes-Action Needed PHONE BETTING CLERK documented in this encounter Plan of Treatment Not on file documented as of this encounter Visit Diagnoses Not on filedocumented in this encounter Additional Health Concerns Infection Onset Date Last Indicated Resolved Time MRSA Comment:Added from external infection. Source: [facility] 11/27/24 08/09/2024 11/27/2024 6 :44 AM TELEPHONE BETTING CLERK documented as of this encounter Care Teams Supervisor Assembly Stock Relationship Specialty Start Date End Date Mitchel Garibay DO [address] [facility] [address] [place] [address] PCP - General Family Medicine 01/22/19 documented as of this encounter
--- OUTSIDE RECORDS SUMMARY | 2024-11-28 02:01 | XMS_ITS | Clinical Summary ---
Author Organization [facility] Address [address] [place] [address] Care Team Providers Care Associate Broker Name Role Phone [place] Mitchel Dahiana CHAUHAN Primary Care Provider [phone] Allergies Active Allergy Reactions Criticality Noted Date Comments Penicillins Hives Medium 04/23/2023 Medications busPIRone (BUSPAR) 15 MG tablet Take 1 tablet (15 mg total) by mouth 3 (three) times daily as needed (Anxiety). Active levETIRAcetam (KEPPRA) 500 MG tablet Take 1 tablet (500 mg total) by mouth 2 (two) times daily. 03/03/2023 Active vitamin B-1 (THIAMINE) 100 MG tabletIndication s:Alcohol abuse Take 1 tablet (100 mg total) by mouth daily. 30 tablet 04/26/2023 Active Active Problems Problem Noted Date Diagnosed Date Alcohol abuse 04/25/2023 Resolved Problems Problem Noted Date Diagnosed Date Resolved Date Alcohol intoxication 04/25/2023 023 Alcohol withdrawal ([facility]) 04/23/2023 04/25/2023 Social History Tobacco Use Types Packs/Day Years Used Date Smoking Tobacco: Former Cigarettes Q uit: 2020 Smokeless Tobacco: Never Tobacco Cessation:Counseling Given: Not Answered Alcohol Use Standard Drinks/Week Comments Yes 0 (1 standard drink = 0.6 oz pur e alcohol) 5th daily Humiliation, Afraid, Rape, and Kick questionnair e Answer Date Recorded Within the last year, have y ou been afraid of your partner or ex-partner? No 04/23/2023 Within the last year, have y ou been humiliated or emotionally abused in other ways by your partner or ex-partner? No Within the last year, have y ou been kicked, hit, slapped, or otherwise physically hurt by your partner or ex-partner? No 04/23/2023 Within the last year, have y ou been raped or forced to have any kind of sexual activity by your partner or ex-partner? No 04/23/2023 Social Connection and Isolation Panel [NHANES] A nswer Date Recorded In a typical week, how many times do you talk on the phone with family, friends, or neighbors? Three times a week 04/23/2023 How often do you get togethe r with friends or relatives? Three times a week 04/23/2023 How often do you attend chur ch or spiritism services? Never 04/23/2023 Do you belong to any clubs o r organizations such as restorationist groups, unions, fraternal or athletic groups, or school groups? No 04/23/2023 How often do you attend meet ings of the clubs or organizations you belong to? Never 04/23/2023 Are you , , di vorced, , never , or living with a partner? Never 04/23/2023 AUDIT-C Answer Date Recorded Q1: How often do you have a drink containing alcohol? 4 or more times a week 04/23/2023 Q2: How many drinks containi ng alcohol do you have on a typical day when you are drinking? Patient declined Q3: How often do you have si x or more drinks on one occasion? Patient declined 04/23/2023 Overall Financial Resource Strain (CARDIA) Answe r Date Recorded How hard is it for you to pa y for the very basics like food, housing, medical care, and heating? Not hard at all 04/23/2023 [facility] - Occupational Stress Questionnaire Answer Date Recorded Do you feel stress - tense, restless, nervous, or anxious, or unable to sleep at night because your mind is troubled all the time - these days? To some extent 04/23/2023 Hunger Vital Sign Answer Date Recorded Within the past 12 months, y ou worried that your food would run out before you got the money to buy more. Never true 04/23/20 23 Within the past 12 months, t he food you bought just didn't last and you didn't have money to get more. Never true 04/23/2023 PRAPARE - Transportation Answer Date Re corded In the past 12 months, has l ack of transportation kept you from medical appointments or from getting medications? No 03/27 In the past 12 months, has l ack of transportation kept you from meetings, work, or from getting things needed for daily living? No 04/23/2023 Housing Stability Vital Sign Answer Aldo e Recorded In the last 12 months, was t here a time when you were not able to pay the mortgage or rent on time? No 04/23/2023 In the last 12 months, how many places have you lived? 1 04/23/2023 In the last 12 months, was t here a time when you did not have a steady place to sleep or slept in a fpc (including now)? 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 Gender Identity Not on file Sexual Orientation Not on file Last Filed Vital Signs Vital Sign Reading Time Taken Comments Blood Pressure 126/88 04/25/2023 11:07 AM CDT Pulse 63 04/25/2023 11:07 AM CDT Temperature 36.5 C (97.7 F) 04/25/2023 5:19 AM CDT Respiratory Rate 18 04/25/2023 11:07 AM CDT Oxygen Saturation 99% 04/25/2023 11:07 AM CDT Inhaled Oxygen Concentration - - Weight 91.8 kg (202 lb 4.8 oz) 04/25/2023 5:19 A M CDT Height 188 cm (6' 2 ) 04/23/2023 3:52 PM CDT Body Mass Index 25.97 04/23/2023 3:52 PM CDT Plan of Treatment Health Maintenance Due Date Last Done Comments Annual Physical 1993 Pneumococcal Vaccine: Pediatrics (0 to 5 Years) and At-Risk Patients (6 to 64 Years) (1 of 2 - PCV) 1996 Hepatitis B Vaccines (2 of 3 - 3-dose series) 10/05/1999 09/07/1999 Hepatitis C 2008 COVID-19 Vaccine (2023-2 5 season) 2024 Influenza Adult (#1) 2024 06/25/2020, 09/04/2019, 07/23/2018 DTaP, Tdap and Td Vaccines ( 4 - Td or Tdap) 03/01/2031 03/01/2021, 09/04/2019, 05/18/2009 HPV Vaccines Aged Out No longer eligi ble based on patient's age to complete this topic Meningococcal B Vaccine Aged Out No l onger eligible based on patient's age to complete this topic Meningococcal Vaccine Aged Out No fer candace eligible based on patient's age to complete this topic RSV Immunizations Under 20 Months Aged Out No longer eligible b ased on patient's age to complete this topic Goals Goal Patient Goal Type Associated Problems Recent Progress Patient-Stated? Author Regularly attend Narcotics Anonymous or Alcoholics Anonymous meetings Lifestyle No Prince Obando, RN Insurance Advance Directives * Full Code (Latest Code Status on File) Date Activated Date Inactivated Comments 04/23/2023 9:10 PM 04/25/2023 3:27 PM Care Teams Associate Broker Relationship Specialty Start Date End Date Mitchel Garibay DO [address] [facility] [address] [place] [address] PCP - General FAMILY PRACTICE 04/23/23
--- OUTSIDE RECORDS SUMMARY | 2024-11-28 02:01 | XMS_ITS | Patient Health Summary ---
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 period is included. Pathologist [facility] Amphetamines Screen Urine Not detected Not detected 11/21/2024 3:[address] [facility] Barbiturates Screen Urine Detected(A) Not detected 11/21/2024 3:[address] [facility] Benzodiazepines Screen Urine Detected(A) Not detected 11/21/2024 3:[address] [facility] Cannabinoids Screen Urine Detected(A) Not detected 11/21/2024 3:[address] [facility] Cocaine Screen Urine Not detected Not detected 11/21/2024 3:[address] [facility] Fentanyl Urine Not detected Not detected 11/21/2024 3:14 PM [facility] Methadone Screen Urine Not detected Not detected 11/21/2024 3:14 PM [facility] Opiate Screen Urine Not detected Not detected 11/21/2024 3:14 PM [facility] Phencyclidine Screen Urine Not detected Not detected 11/21/2024 3:14 PM [facility] Urine URINE / Unknown Collection / Unknown 11/21/2024 1:53 PM JAVA PROGRAMMER 11/21/2024 2:10 PM [facility] Narrative [facility] - 11/21/2024 3:14 PM [facility] This drug screen is designed for MEDICAL purposes only. It is not to be used for legal purposes, including but not limited to worker's comp, police investigations, occupational issues, child custody, etc. Any positive result is only presumptive and must be confirmed with a separate confirmatory test ordered by the physician. Drug Screening Test Cutoff Values: AMPHETAMINES 1000 ng/mL BARBITURATES 200 ng/mL BENZODIAZEPINES 200 ng/mL CANNABINOIDS(THC) 50 ng/mL COCAINE 300 ng/mL FENTANYL 1 ng/mL METHADONE 300 ng/mL OPIATES 300 ng/mL PHENCYCLIDINE(PCP) 25 ng/mL Gagandeep Bone DO LAB - URINE CHEMISTR Y ORDERABLES Performing Organization Address City/State/[facility] Co de Phone Number [facility] [address] [place], [place] [phone] * SARS-COV-2 (COVID-19) FLU A/B RSV PCR RAPID (11/21/2024 11:29 AM [facility]) COVID-19 PCR Not detected Not detected 11/21/19 12:07 PM [facility] Influenza A PCR Not detected Not detected 11/21/2024 12:07 PM [facility] Influenza B PCR Not detected Not detected 11/21/2024 12:07 PM [facility] RSV PCR Not detected Not detected 11/21/2024 12:07 PM [facility] Microbiology SPECIMEN FROM NASOPHARYNGEAL STRUCTURE / Unknown Collection / Unknown 11/21/2024 11:29 AM JAVA PROGRAMMER 11/21/2024 11:29 AM [facility] Narrative [facility] - 11/21/2024 12:07 PM JAVA PROGRAMMER This nucleic acid amplification assay has been authorized by the Food and Drug administration (FDA) under an Emergency Use Authorization (EUA). This test is only authorized for the duration of time the declaration that circumstances exist justifying the authorization of emergency use of in vitro diagnostic tests for detection of SARS-CoV-2 virus and/or diagnosis of COVID-19 infection under section 564(b)(1) of the Act, 21 U.S.C 360bbb-3 (b)(1), unless the authorization is terminated or revoked sooner. Fact Sheets for this EUA assay are available upon request. Gagandeep Bone DO LAB - MICROBIOLOGY O RDERABLES Performing Organization Address [facility] Co de Phone Number [facility] [address] [place], [place] [phone] * LEVETIRACETAM LEVEL (11/21/2024 11:29 AM JAVA PROGRAMMER) Only the most recent of2 resultswithin the time period is included. Levetiracetam 24.63 10 - 40 ug/mL 11/21/2024 11:[address] [facility] Blood BLOOD SPECIMEN / Unknown Venipuncture / Unknown 11/21/2024 11:29 AM JAVA PROGRAMMER 11/21/2024 11:29 AM JAVA PROGRAMMER hTeresa Espinoza [employer]CIAL [employer] LAB - THERAP EUTIC DRUG MONITORING ORDERABLES Performing Organization Address [facility] Co de Phone Number [facility] [address] [place] [address] * HYDROXYBUTYRATE BETA (11/21/2024 11:29 AM JAVA PROGRAMMER) Beta-Hydroxybu tyrate <0.50 <0.50 mmol/L 11/21/2024 11:[address] [facility] Blood BLOOD SPECIMEN / Unknown Venipuncture / Unknown 11/21/2024 11:29 AM JAVA PROGRAMMER 11/21/2024 11:29 AM JAVA PROGRAMMER Narrative [facility] - 11/21/2024 11:45 AM JAVA PROGRAMMER Results >1.5 mmol/L may be indicative of diabetic ketoacidosis. Use in conjunction with Serum Glucose levels. Aleta Vieira MD LAB - CHEMISTRY [place] Performing Organization Address City/[facility]/ZIP Co de Phone Number [facility] [address] [place], [place] [phone] * (ABNORMAL) BASIC METABOLIC PANEL (CALCIUM TOTAL) (11/21/2024 11:29 AM JAVA PROGRAMMER) Only the most recent of52 resultswithin the time period is included. [facility] Glucose 113(H) 70 - 99 mg/dL 11/21/2024 11:45 AM [facility] Sodium 137 136 - 145 mmol/L 11/21/2024 11:45 AM [facility] Potassium 3.7 3.5 - 5.1 mmol/L 11/21/2024 11:45 AM [facility] Chloride 102 98 - 107 mmol/L 11/21/2024 11:45 AM [facility] CO2 18(L) 22 - 29 mmol/L 11/21/2024 11:45 AM [facility] Calcium 9.3 8.4 - 10.4 mg/dL 11/21/2024 11:45 AM [facility] Anion Gap 17(H) 6 - 16 mmol/L 11/21/2024 11:45 AM [facility] BUN 10 5.3 - 18.7 mg/dL 11/21/2024 11:45 AM [facility] Creatinine 0.93 0.72 - 1.25 mg/dL 11/21/2024 11:45 AM [facility] eGFR by CKD-EPI >90 >=90 mL/min/1.7 3 m2 11/21/2024 11:45 AM [facility] Blood BLOOD SPECIMEN / Unknown Venipuncture / Unknown 11/21/2024 11:29 AM JAVA PROGRAMMER 11/21/2024 11:29 AM JAVA PROGRAMMER Theresa Espinoza [employer]CIAL [employer] LAB - CHEMIS TRY ORDERABLES Performing Organization Address [facility]/ZIP Co de Phone Number [facility] [address] [place], [place] [phone] * PHOSPHORUS BLOOD (11/21/2024 11:29 AM JAVA PROGRAMMER) Only the most recent of30 resultswithin the time period is included. Phosphorus 3.7 2.5 - 4.5 mg/dL 11/21/2024 11:[address] [facility] Blood BLOOD SPECIMEN / Unknown Venipuncture / Unknown 11/21/2024 11:29 AM JAVA PROGRAMMER 11/21/2024 11:29 AM JAVA PROGRAMMER Theresa Espinoza [employer] LAB - CHEMIS TRY ORDERABLES [facility] [address] [place] [phone] * XR Chest 1Vw Portable (11/21/2024 10:38 AM JAVA PROGRAMMER) Only the most recent of15 resultswithin the time period is included. Anatomical Region Laterality Modality Chest Radiographic Ashley ging 11/21/2024 10:4 2 AM JAVA PROGRAMMER Narrative 11/21/2024 10:42 AM JAVA PROGRAMMER PROCEDURE: XR CHEST 1VW PORTABLE DATE/TIME OF EXAM: 11/21/2024 10:39 AM CLINICAL INFORMATION: None relevant/not provided if blank. 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 No pleural effusion is seen. Heart appears normal in size. Mediastinal contours appear normal. > Interpreting Provider: Kings Garcia MD on 11/21/2024 10:42 AM Procedure Note Kings Garcia MD - 11/21/2024 PROCEDURE: XR CHEST 1VW PORTABLE DATE/TIME OF EXAM: 11/21/2024 10:39 AM CLINICAL INFORMATION: None relevant/not provided if blank. 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 No pleural effusionis seen. Heart appears normal in size. Mediastinal contours appear normal. > Interpreting Provider: Kings Garcia MD on 11/21/2024 10:42 AM Aleta Vieira MD DIAGNOSTIC IMAGING O RDERABLES * SLIDE SCAN HEMATOLOGY (11/21/2024 8:50 AM JAVA PROGRAMMER) Pathologist [facility] RBC Morphology NORMAL 11/21/2024 10:15 AM [facility] Blood BLOOD SPECIMEN / Unknown Venipuncture / Unknown 11/21/2024 8:50 AM JAVA PROGRAMMER 11/21/2024 8:51 AM JAVA PROGRAMMER Gagandeep Bone DO LAB - HEMATOLOGY ORD ERABLES [facility] [address] [place] [address] * (ABNORMAL) CBC W AUTO DIFFERENTIAL (11/21/2024 8:50 AM JAVA PROGRAMMER) Only the most recent of18 resultswithin the time period is included. Pathologist [facility] WBC 10.1 4.0 - 10.7 x10E9/L 11/21/2024 10:15 AM [facility] RBC Count 5.62 4.30 - 5.80 x10E12/L 11/21/2024 10:15 AM [facility] Hemoglobin 17.4 13.3 - 17.5 g/dL 11/21/2024 10:15 AM [facility] Hematocrit 47.1 38.7 - 51.1 % 11/21/2024 10:15 AM [facility] MCV 83.8 80.0 - 98.0 fL 11/21/2024 10:15 AM [facility] MCH 31.0 26.7 - 33.6 pg 11/21/2024 10:15 AM [facility] MCHC 36.9(H) 31.7 - 36.3 g/dL 11/21/2024 10:15 AM [facility] RDW-CV 12.2 11.3 - 14.8 % 11/21/2024 10:15 AM [facility] Platelet Count 311 150 - 420 x10E9/L 11/21/2024 10:15 AM [facility] MPV 9.8 7.8 - 11.4 fL 11/21/2024 10:15 AM [facility] Neutrophil % 71.9 41.0 - 74.0 % 11/21/2024 10:15 AM [facility] Lymphocyte % 23.5 17.0 - 47.0 % 11/21/2024 10:15 AM [facility] Monocyte % 3.5 3.0 - 11.0 % 11/21/2024 10:15 AM [facility] Eosinophil % 0.2 0.0 - 7.0 % 11/21/2024 10:15 AM [facility] Basophil % 0.6 0.0 - 1.6 % 11/21/2024 10:15 AM [facility] Immature Granulocytes % 0.3 0.0 - 1.0 % 11/21/2024 10:15 AM [facility] Neutrophil Absolute 7.24 1.60 - 7.50 x10E9/L 11/21/2024 10:15 AM [facility] Lymphocyte Absolute 2.37 1.00 - 4.40 x10E9/L 11/21/2024 10:15 AM [facility] Monocyte Absolute 0.35 0.15 - 1.00 x10E9/L 11/21/2024 10:15 AM [facility] Eosinophil Absolute 0.02 0.00 - 0.60 x10E9/L 11/21/2024 10:15 AM [facility] Basophil Absolute 0.06 0.00 - 0.13 x10E9/L 11/21/2024 10:15 AM [facility] Blood BLOOD SPECIMEN / Unknown Venipuncture / Unknown 11/21/2024 8:50 AM JAVA PROGRAMMER 11/21/2024 8:51 AM [facility] Gagandeep Bone DO LAB - HEMATOLOGY ORD ERABLES [facility] [address] [place] [address] * MAGNESIUM BLOOD (11/21/2024 8:50 AM [facility]) Only the most recent of33 resultswithin the time period is included. Magnesium 1.8 1.6 - 2.6 mg/dL 11/21/2024 9:18 AM [facility] Blood BLOOD SPECIMEN / Unknown Venipuncture / Unknown 11/21/2024 8:50 AM JAVA PROGRAMMER 11/21/2024 8:51 AM JAVA PROGRAMMER Gagandeep Bone DO LAB - CHEMISTRY [place] Performing Organization Address City/[facility]/ZIP Co de Phone Number [facility] [address] [place] [address] * LIPASE BLOOD (11/21/2024 8:50 AM JAVA PROGRAMMER) Only the most recent of11 resultswithin the time period is included. Lipase 25 <60 U/L 11/21/2024 9:[address] [facility] Blood BLOOD SPECIMEN / Unknown Venipuncture / Unknown 11/21/2024 8:50 AM JAVA PROGRAMMER 11/21/2024 8:51 AM JAVA PROGRAMMER Gagandeep Bone DO LAB - CHEMISTRY [place] Performing Organization Address [facility] Co de Phone Number [facility] [address] [place] [address] * (ABNORMAL) ALCOHOL ETHYL BLOOD (11/21/2024 8:50 AM JAVA PROGRAMMER) Only the most recent of5 resultswithin the time period is included. Ethanol 77.0(H) <10 mg/dL 11/21/2024 9:18 AM [facility] Ethanol Calculated 0.077 <=0.100 gm/dL 11/21/2024 9:18 AM [facility] Blood BLOOD SPECIMEN / Unknown Venipuncture / Unknown 11/21/2024 8:50 AM JAVA PROGRAMMER 11/21/2024 8:51 AM JAVA PROGRAMMER Narrative [facility] - 11/21/2024 9:18 AM JAVA PROGRAMMER Ethanol Interp <10: None Detected Depression of CSN: >100 mg/dL Potentially Critical: >250 mg/dL Potentially Fatal >400 mg/dL Ethanol in the patient's blood will contribute to the osmolar gap. Ethanol's contribution to the osmolar gap can be estimated by dividing the concentration of ethanol in mg/dL by 4.6. This test is for clinical use only and does not equal a TAMMI for legal purposes. Gagandeep Bone DO LAB - CHEMISTRY ORDE MARIVEL [facility] [address] [place] [address] * GLUCOSE - POINT OF CARE (10/04/2024 12:57 PM JAVA PROGRAMMER) Only the most recent of49 resultswithin the time period is included. Glucose WB/POC 83 70 - 99 mg/dL 10/04/2024 1:06 PM [facility] Specimen Type Cap Fingerstick 2024 1:06 PM [facility] Blood BLOOD SPECIMEN / Unknown 10/04/2024 12:57 PM JAVA PROGRAMMER 10/04/2024 1:06 PM JAVA PROGRAMMER Vargas Boothe MD LAB - POINT OF CARE ORDERABLES Performing Organization Address [facility]/ZIP Co de Phone Number [facility] [address] [place] [address] * (ABNORMAL) CBC W/O DIFFERENTIAL (10/03/2024 2:59 AM JAVA PROGRAMMER) Only the most recent of53 resultswithin the time period is included. WBC 4.0 4.0 - 10.7 x10E9/L 10/03/2024 4:02 AM [facility] RBC Count 3.27(L) 4.30 - 5.80 x10E12/L 10/03/2024 4:02 AM [facility] Hemoglobin 10.6(L) 13.3 - 17.5 g/dL 10/03/2024 4:02 AM [facility] Hematocrit 29.9(L) 38.7 - 51.1 % 10/03/2024 4:02 AM [facility] MCV 91.4 80.0 - 98.0 fL 10/03/2024 4:02 AM [facility] MCH 32.4 26.7 - 33.6 pg 10/03/2024 4:02 AM [facility] MCHC 35.5 31.7 - 36.3 g/dL 10/03/2024 4:02 AM [facility] RDW-CV 12.7 11.3 - 14.8 % 10/03/2024 4:02 AM [facility] Platelet Count 93(L) 150 - 420 x10E9/L 10/03/2024 4:02 AM [facility] MPV 10.5 7.8 - 11.4 fL 10/03/2024 4:02 AM [facility] NRBC 1.0(H) <=0.0 /100 WBC 10/03/2024 4:02 AM [facility] Blood BLOOD SPECIMEN / Unknown Venipuncture / Unknown 10/03/2024 2:59 AM JAVA PROGRAMMER 10/03/2024 3:40 AM JAVA PROGRAMMER Aleta Vieira MD LAB - HEMATOLOGY [place] Performing Organization Address City/[facility]/ZIP Co de Phone Number [facility] [address] [place] [phone] * TROPONIN-I HIGH SENSITIVE REFLEX 1HOUR (10/02/2024 12:31 PM JAVA PROGRAMMER) Troponin I High Sensitive <3 <=35 ng/L 10/02/2024 1:[address] [facility] Delta Troponin I HS 10/02/2024 1:12 PM [facility] Comment:Delta value intentio jem not calculated. Baseline to 1 hour specimen collection interval exceeded. Blood BLOOD SPECIMEN / Unknown Venipuncture / Unknown 10/02/2024 12:31 PM JAVA PROGRAMMER 10/02/2024 12:42 PM JAVA PROGRAMMER Orlando Bowers MD LAB - CHEMISTRY [place] [facility] [address] [place] [phone] * TROPONIN-I HIGH SENSITIVE BASELINE + 1HR (10/02/2024 8:23 AM JAVA PROGRAMMER) Troponin I High Sensitive <3 <=35 ng/L 10/02/2024 8:55 AM [facility] Blood BLOOD SPECIMEN / Unknown Venipuncture / Unknown 10/02/2024 8:23 AM JAVA PROGRAMMER 10/02/2024 8:28 AM JAVA PROGRAMMER Juvencio Virk MD LAB - CHEMISTRY [place] ORTA [facility] [address] [place] [phone] * Critical Care (10/02/2024 4:48 AM JAVA PROGRAMMER) Narrative Wei Fan DO - 10/02/2024 4:48 AM JAVA PROGRAMMER Wei Fan DO 10/02/2024 6:49 AM Critical Care Performed by: Wei Fan DO Authorized by: Aleta Vieira MD Critical care provider statement: Critical care time (minutes): 36 Critical care time was exclusive of: Separately billable procedures and treating other patients and teaching time Critical care was necessary to treat or prevent imminent or life-threatening deterioration of the following conditions: Toxidrome Critical care was time spent personally by me on the following activities: Ordering and performing treatments and interventions, ordering and review of laboratory studies and ordering and review of radiographic studies I assumed direction of critical care for this patient from another provider in my specialty: no Care discussed with: admitting provider Aleta Vieira MD PROCEDURE/MINOR SURG ICAL ORDERABLES * (ABNORMAL) VANCOMYCIN LEVEL TROUGH (08/10/2024 5:49 PM JAVA PROGRAMMER) Only the most recent of2 resultswithin the time period is included. Vancomycin Trough 20.2(H) 10.0 - 20.0 ug/mL 08/10/2024 6:[address] [facility] Blood BLOOD SPECIMEN / Unknown Lab Venipuncture / Unknown 08/10/2024 5:49 PM JAVA PROGRAMMER 08/10/2024 6:12 PM JAVA PROGRAMMER Luba Mendoza MD LAB - CHEMISTRY [place] [facility] [address] [place], [place] [phone] * VANCOMYCIN LEVEL PEAK (08/10/2024 1:41 PM JAVA PROGRAMMER) Vancomycin Peak 32.3 25.0 - 40.0 ug/mL 08/10/2024 2:[address] [facility] Blood BLOOD SPECIMEN / Unknown Lab Venipuncture / Unknown 08/10/2024 1:41 PM JAVA PROGRAMMER 08/10/2024 1:54 PM JAVA PROGRAMMER Luba Mendoza MD LAB - CHEMISTRY ORD ERABLES [facility] [address] [place] [address] * CARDIAC EKG ORDER (08/10/2024 3:50 AM JAVA PROGRAMMER) Only the most recent of4 resultswithin the time period is included. Narrative 08/10/2024 3:50 AM JAVA PROGRAMMER Ordered by an unspecified provider. Scanned Document CARDIAC SERVICES ORD ERABLES * (ABNORMAL) CULTURE WOUND+GRAM STAIN (08/09/2024 6:11 PM JAVA PROGRAMMER) Culture Heavy Staphylococcus aureus methicillin-resista nt (MRSA)(A) LIVIER 08/12/2024 2:39 AM [facility] Comment:Staphylococcus aureu s methicillin-resistant (MRSA) detected by penicillin binding protein immunoassay. Contact precautions required. Conventional antibiotic susceptibility testing to follow. Gram Stain Light Gram-positive cocci 08/12/2024 2:39 AM [facility]CRO[facility] Gram Stain Light Polymorphonuclear cells 08/12/2024 2:39 AM [facility]CRO[facility] Microbiology ENTIRE FOREARM / Unknown Collection / Unknown 08/09/2024 6:11 PM JAVA PROGRAMMER 08/09/2024 6:44 PM JAVA PROGRAMMER Narrative [facility] - 08/12/2024 2:39 AM JAVA PROGRAMMER Methicillin-resistant Staphylococci (MRSA) are resistant to all currently available beta-lactam antibiotics with the exception of the newer cephalosporins with anti-MRSA activity. Contact precautions required. Organism Antibiotic Method Susceptibility Staphylococcus aureus methicillin-resistant (MRSA) Clindamycin LIVIER 0.25 ug/mL: Susceptible Staphylococcus aureus methicillin-resistant (MRSA) Doxycycline LIVIER <=0.5 ug/mL: Susceptible Staphylococcus aureus methicillin-resistant (MRSA) Inducible Clindamycin Resistance LIVIER NEG ug/mL: Neg Staphylococcus aureus methicillin-resistant (MRSA) Oxacillin LIVIER >=4 ug/mL: Resistant Staphylococcus aureus methicillin-resistant (MRSA) Trimethoprim-sulfamethox azole LIVIER <=10 ug/mL: Susceptible Staphylococcus aureus methicillin-resistant (MRSA) Vancomycin LIVIER <=0.5 ug/mL: Susceptible Herlinda Jack MD LAB - MICROBIOLOGY O RDERABLES [facility] MICRO[facility] [address] [place], [place] [address], [facility] [phone] * CT Forearm Left W Contrast (08/09/2024 3:16 PM JAVA PROGRAMMER) Anatomical Region Laterality Modality Upper Extremity Computed Tomogra phy 08/09/2024 3:25 PM JAVA PROGRAMMER Impressions 08/09/2024 3:33 PM JAVA PROGRAMMER IMPRESSION: 1.No soft tissue mass or vascular masses identified in the forearm. 2.Mild soft tissue swelling in subcutaneous fat stranding and skin thickening in the olecranon region and dorsal aspect of mid forearm may represent 2 separate foci of cellulitis without evidence of an associated abscess, soft tissue ulceration or radiopaque foreign body. 3.No abnormal enhancement is identified. > Interpreting Provider: Gab Washington MD on 08/09/2024 3:33 PM Narrative 08/09/2024 3:33 PM JAVA PROGRAMMER PROCEDURE: CT FOREARM LEFT W CONTRAST DATE/TIME OF EXAM: 08/09/2024 3:17 PM CLINICAL INFORMATION: None relevant/not provided if blank. Indication: L03.114: Cellulitis of left upper limb CT LEFT FOREARM WITH CONTRAST HISTORY: Cellulitis of left upper extremity. A soft tissues/vascular mass is suspected. COMPARISON: None. TECHNIQUE: After intravenous administration of 90 mL Isovue-370 contrast, spiral axial scanning of the forearm was performed followed by coronal and sagittal reconstruction of images by the technologist. FINDINGS: On the dorsal aspect of the elbow, there is. A small area of skin thickening with underlying soft tissue swelling and subcutaneous fat stranding which favors cellulitis, but there is no associated evidence of fluid in the olecranon bursa to indicate olecranon bursitis. There is no evidence of a soft tissue mass. There is no soft tissue laceration, subcutaneous air or radiopaque foreign body. No other evidence of significant cellulitis is identified, except for a small area of subcutaneous fat stranding in mid forearm which may represent a second focus of cellulitis (series 4, image 223). There is no evidence of fracture, dislocation, endosteal scalloping, periosteal elevation/thickening or suspicious intrinsic bony lesions in the imaged bones. No osteoarthritic or inflammatory arthritic changes are present in the wrist or the elbow. There is no enthesopathy in the elbow. No joint effusion is present in the elbow. The carpal rows and the carpal joints are normally maintained. The muscles of the forearm are within normal limits. The fascia and deep spaces are normal. No abnormality in the neurovascular bundles is identified in the forearm. Procedure Note Gab Washington MD - 08/09/2024 PROCEDURE: CT FOREARM LEFT W CONTRAST DATE/TIME OF EXAM: 08/09/2024 3:17 PM CLINICAL INFORMATION: None relevant/not provided if blank. Indication: L03.114: Cellulitis of left upper limb CT LEFT FOREARM WITH CONTRAST HISTORY: Cellulitis of left upper extremity. A soft tissues/vascularmass is suspected. COMPARISON: None. TECHNIQUE: After intravenous administration of 90 mL Isovue-370contrast, spiral axial scanning of the forearm was performed followed by coronaland sagittal reconstruction of images by the technologist. FINDINGS: On the dorsal aspect of the elbow, there is. A small area of skin thickening with underlying soft tissue swelling and subcutaneous fat stranding which favors cellulitis, but there is no associated evidenceof fluid in the olecranon bursa to indicate olecranon bursitis. There is no evidence of a soft tissue mass. There is no soft tissue laceration, subcutaneous air or radiopaqueforeign body. No other evidence of significant cellulitis is identified, exceptfor a small area of subcutaneous fat stranding in mid forearm which may represent a second focus of cellulitis (series 4, image 223). There is no evidence of fracture, dislocation, endosteal scalloping, periosteal elevation/thickening or suspicious intrinsic bony lesions inthe imaged bones. No osteoarthritic or inflammatory arthritic changes are present in the wrist or the elbow. There is no enthesopathy in theelbow. No joint effusion is present in the elbow. The carpal rows and thecarpal joints are normally maintained. The muscles of the forearm are within normal limits. The fascia and deep spaces are normal. No abnormality in the neurovascular bundles is identified in the forearm. IMPRESSION: 1.No soft tissue mass or vascular masses identified in the forearm. 2.Mild soft tissue swelling in subcutaneous fat stranding and skin thickening in the olecranon region and dorsal aspect of mid forearm may represent 2 separate foci of cellulitis without evidence of anassociated abscess, soft tissue ulceration or radiopaque foreign body. 3.No abnormal enhancement is identified. > Interpreting Provider: Gab Washington MD on 08/09/2024 3:33 PM Herlinda Jack MD CT ORDERABLES * CT CHEST PE (08/09/2024 10:09 AM JAVA PROGRAMMER) Anatomical Region Laterality Modality Chest Computed Tomogra phy 08/09/2024 10:1 7 AM JAVA PROGRAMMER Impressions 08/09/2024 10:18 AM JAVA PROGRAMMER IMPRESSION: 1. No focal filling defects seen to represent an acute pulmonary embolism. 2. No acute pulmonary process seen. 3. Likely hepatic steatosis seen. > Interpreting Provider: Kings Garcia MD on 08/09/2024 10:18 AM Narrative 08/09/2024 10:18 AM JAVA PROGRAMMER PROCEDURE: CT ANGIO CHEST PULM EMBOLISM DATE/TIME OF EXAM: 08/09/2024 10:09 AM CLINICAL INFORMATION: None relevant/not provided if blank. Indication: R07.9: Chest pain, unspecified Additional History: COMPARISON: None. TECHNIQUE: CT angiography of the chest was performed without IV contrast followed by IV contrast, including 3D post processing CTA image reconstruction. CT angiography of the chest was performed with IV contrast. MIP (maximum intensity projection) images or 3D post processing was performed. CT dose reduction technique was used including Automated Exposure Control CONTRAST: IOPAMIDOL 76 % IV SOLN:100 mL FINDINGS: No focal consolidation is seen in the lungs. There is no evidence of pleural effusion. No pneumothorax is seen. Heart appears normal in size. Mediastinal contours appear normal. No pleural effusion is seen. No pneumothorax is seen. Limited evaluation of the intra-abdominal structures appears unremarkable. Bone windows demonstrate no definite destructive lesions. Procedure Note Kings Garcia MD - 08/09/2024 PROCEDURE: CT ANGIO CHEST PULM EMBOLISM DATE/TIME OF EXAM: 08/09/2024 10:09 AM CLINICAL INFORMATION: None relevant/not provided if blank. Indication: R07.9: Chest pain, unspecified Additional History: COMPARISON: None. TECHNIQUE: CT angiography of the chest was performed without IV contrast followedby IV contrast, including 3D post processing CTA image reconstruction. CT angiography of the chest was performed with IV contrast. MIP (maximum intensity projection) images or 3D post processing was performed. CTdose reduction technique was used including Automated Exposure Control CONTRAST: IOPAMIDOL 76 % IV SOLN:100 mL FINDINGS: No focal consolidation is seen in the lungs. There is no evidence of pleural effusion. No pneumothorax is seen. Heart appears normal in size. Mediastinal contours appear normal. No pleural effusion is seen. No pneumothorax is seen. Limited evaluation of the intra-abdominal structures appearsunremarkable. Bone windows demonstrate no definite destructive lesions. IMPRESSION: 1. No focal filling defects seen to represent an acute pulmonaryembolism. 2. No acute pulmonary process seen. 3. Likely hepatic steatosis seen. > Interpreting Provider: Kings Garcia MD on 08/09/2024 10:18 AM Luba Mendoza MD CT ORDERABLES * CULTURE BLOOD (08/09/2024 8:50 AM JAVA PROGRAMMER) Only the most recent of6 resultswithin the time period is included. [facility] Culture No growth day 5 LIVIER 08/14/2024 2:32 PM JAVA PROGRAMMER [facility] MICROBIOLOGY Blood PERIPHERAL BLOOD / Unknown Venipuncture / Unknown 08/09/2024 8:50 AM JAVA PROGRAMMER 08/09/2024 8:59 AM JAVA PROGRAMMER Luba Mendoza MD LAB - MICROBIOLOGY ORDERABLES [facility] MICROBIOLOGY [address] [place] [address], [facility] [phone] * (ABNORMAL) TROPONIN-I HIGH SENSITIVE (08/09/2024 7:56 AM JAVA PROGRAMMER) Only the most recent of4 resultswithin the time period is included. [facility] Troponin I High Sensitive 68(H) <=35 ng/L 08/09/2024 8:[address] [facility] Blood BLOOD SPECIMEN / Unknown Venipuncture / Unknown 08/09/2024 7:56 AM JAVA PROGRAMMER 08/09/2024 8:18 AM JAVA PROGRAMMER Luba Mendoza MD LAB - CHEMISTRY ORD YoicsBLES Performing Organization Address [facility] Co de Phone Number [facility] [address] [place] [address] * B-TYPE NATRIURETIC PEPTIDE (08/09/2024 7:56 AM JAVA PROGRAMMER) BNP 35 <=100 pg/mL 08/09/2024 8:[address] [facility] Blood BLOOD SPECIMEN / Unknown Venipuncture / Unknown 08/09/2024 7:56 AM JAVA PROGRAMMER 08/09/2024 8:18 AM JAVA PROGRAMMER Narrative [facility] - 08/09/2024 8:40 AM JAVA PROGRAMMER A cutoff of 100 pg/mL has been demonstrated to provide the maximal combination of sensitivity, specificity, and negative predictive value for contributing to the diagnosis of congestive heart failure (CHF) only. A B-Type Natriuretic Peptide (BNP) value greater than or equal to 100 pg/mL is consistent with a diagnosis of CHF in the appropriate clinical setting. False positive results are more common in females greater than 75 years of age. Blood concentrations of natriuretic peptides may also be elevated in patients with myocardial infarction and in patients who are candidates for or are undergoing renal dialysis. Luba Mendoza MD LAB - CHEMISTRY ORD YoicsBLES Performing Organization Address City/[facility]/ZIP Co de Phone Number [facility] [address] [place] [id number] * XR CHEST 2VW (08/09/2024 7:21 AM JAVA PROGRAMMER) Only the most recent of2 resultswithin the time period is included. Anatomical Region Laterality Modality Chest Radiographic Ashley ging 08/09/2024 8:22 AM JAVA PROGRAMMER Narrative 08/09/2024 8:22 AM JAVA PROGRAMMER PROCEDURE: XR CHEST 2VW DATE/TIME OF EXAM: 08/09/2024 7:21 AM CLINICAL INFORMATION: None relevant/not provided if blank. Indication: R07.9: Chest pain, unspecified Additional History: Exam: PA and lateral views of the chest. History: R07.9: Chest pain, unspecified Findings/Impression: . No focal consolidation, pleural effusion, or pneumothorax is identified. The cardiac silhouette and mediastinal contours are normal. > Interpreting Provider: Kings Garcia MD on 08/09/2024 8:22 AM Procedure Note Kings Garcia MD - 08/09/2024 PROCEDURE: XR CHEST 2VW DATE/TIME OF EXAM: 08/09/2024 7:21 AM CLINICAL INFORMATION: None relevant/not provided if blank. Indication: R07.9: Chest pain, unspecified Additional History: Exam: PA and lateral views of the chest. History: R07.9: Chest pain, unspecified Findings/Impression: . No focal consolidation, pleural effusion, or pneumothorax is identified. The cardiac silhouette and mediastinalcontours are normal. > Interpreting Provider: Knigs Garcia MD on 08/09/2024 8:22 AM Luba Mendoza MD DIAGNOSTIC IMAGING ORDERABLES * VAS Left Venous Duplex Ue (08/06/2024 10:47 AM JAVA PROGRAMMER) Anatomical Region Laterality Modality Upper Extremity Ultrasound 08/06/2024 11:3 7 AM JAVA PROGRAMMER Narrative Procedure Note Jessee Abraham MD - 08/13/2024 [place] [address] Upper Extremity Venous Ultrasound Report Pat.Name: SHIRLEY ROGERS Pat.ID: [id number] St.Date: 08/06/2024 Refer.MD: Olena Sanford Exam Time: 11:37:00 AM Study Type:UE Venous Age: 2 1990,33Y Sex: MALE Sonogrphr: Shey Amaya RVT, NORA Pat. Stat.:Inpatient ICD - 9: l03.114 CPT - 4: 11802 Reason for Study: Swelling -Arm/hand, left Procedures: Upper Extremity Venous - Left [facility]: [facility] Visit ID: [id number] ++++++++++++++++++++++++++++++++++++ SUMMARY: ++++++++++++++++++++++++++++++++++++ Occlusive thrombus in the left cephalic vein. Rest of the veins in the left upper extremity are normal. IJessee MD, RPVI,Vascular and Interventional radiologist, reviewed the images and reported the study. ++++++++++++++++++++++++++++++++++++ FINDINGS: ++++++++++++++++++++++++++++++++++++ Procedure: Venous duplex imaging of the left upper extremity, up to and including the internal jugular vein, was performed using color flow and spectral Doppler analysis. The contralateral subclavian vein was also examined. Study Quality: This study is of adequate technical quality. Lt Arm: There issub acute , occlusive thrombus in the cephalic vein at proximal and mid forearm. All other vessels seen appear patent and compressible. The right subclavian vein demonstrated spontaneous and pulsatile flow. Comments: Technologist findings were called to bedside nurse. Signed 08/13/2024 07:17 AM Jessee Tena MD Olena Sanford MD VASCULAR LAB ORDERAB LES * CT Chest Abdomen Pelvis W Cont (08/02/2024 10:13 PM JAVA PROGRAMMER) Only the most recent of3 resultswithin the time period is included. Anatomical Region Laterality Modality Chest, Abdomen, Pelvis Computed Tomography 08/03/2024 9:14 AM JAVA PROGRAMMER Impressions 08/03/2024 9:22 AM JAVA PROGRAMMER IMPRESSION: 1. Long segment circumferential esophageal wall thickening, most likely inflammatory in a patient this age. 2. Hepatic steatosis. > Interpreting Provider: Nam Galan MD on 08/03/2024 9:22 AM Narrative 08/03/2024 9:22 AM JAVA PROGRAMMER PROCEDURE: CT CHEST ABDOMEN PELVIS W CONT DATE/TIME OF EXAM: 08/02/2024 10:13 PM CLINICAL INFORMATION: None relevant/not provided if blank. Indication: R07.9: Chest pain, unspecified R11.2: Nausea with vomiting, unspecified Additional History: COMPARISON: Abdominal pelvic CT performed 03/24/2021 TECHNIQUE: CT of the chest, abdomen and pelvis was performed following intravenous contrast utilizing standard protocol. CT dose reduction technique was used, including Automated Exposure Control. CONTRAST: IOPAMIDOL 76 % IV SOLN:95 mL FINDINGS: Chest: LUNGS: Within normal limits HEART/VESSELS: Thoracic aorta is normal in caliber. MEDIASTINUM/THERESA: No enlarged lymph nodes. Circumferential esophageal wall thickening, most pronounced mid to distally. Trace fluid in the mid esophagus. CHEST WALL/LOWER NECK: Indeterminate subcentimeter hypoattenuating right thyroid nodule. Abdomen and pelvis: LIVER: Diffuse steatosis. BILE DUCTS: Nondilated. GALLBLADDER: Within normal limits. SPLEEN: Within normal limits. PANCREAS: Within normal limits. ADRENALS: Within normal limits. KIDNEYS/URETERS: Right nephrectomy. Left kidney is within normal limits. BOWEL: Normal in caliber. PERITONEUM/RETROPERITONEUM: No ascites, free air or enlarged mesenteric/retroperitoneal lymph nodes. PELVIC ORGANS: Bladder is distended. VESSELS: Within normal limits. ABDOMINAL WALL: Small fat-containing periumbilical hernia. BONES: No suspicious lytic or blastic lesions. Partially imaged right femoral nail with residual intertrochanteric fracture deformity/heterotopic ossification. Procedure Note Nam Galan MD - 08/03/2024 PROCEDURE: CT CHEST ABDOMEN PELVIS W CONT DATE/TIME OF EXAM: 08/02/2024 10:13 PM CLINICAL INFORMATION: None relevant/not provided if blank. Indication: R07.9: Chest pain, unspecified R11.2: Nausea with vomiting, unspecified Additional History: COMPARISON: Abdominal pelvic CT performed 03/24/2021 TECHNIQUE: CT of the chest, abdomen and pelvis was performed following intravenous contrast utilizing standard protocol. CT dose reduction technique was used, including Automated ExposureControl. CONTRAST: IOPAMIDOL 76 % IV SOLN:95 mL FINDINGS: Chest: LUNGS: Within normal limits HEART/VESSELS: Thoracic aorta is normal in caliber. MEDIASTINUM/THERESA: No enlarged lymph nodes. Circumferential esophagealwall thickening, most pronounced mid to distally. Trace fluid in the mid esophagus. CHEST WALL/LOWER NECK: Indeterminate subcentimeter hypoattenuating right thyroid nodule. Abdomen and pelvis: LIVER: Diffuse steatosis. BILE DUCTS: Nondilated. GALLBLADDER: Within normal limits. SPLEEN: Within normal limits. PANCREAS: Within normal limits. ADRENALS: Within normal limits. KIDNEYS/URETERS: Right nephrectomy. Left kidney is within normal limits. BOWEL: Normal in caliber. PERITONEUM/RETROPERITONEUM: No ascites, free air or enlarged mesenteric/retroperitoneal lymph nodes. PELVIC ORGANS: Bladder is distended. VESSELS: Within normal limits. ABDOMINAL WALL: Small fat-containing periumbilical hernia. BONES: No suspicious lytic or blastic lesions. Partially imaged right femoral nail with residual intertrochanteric fracturedeformity/heterotopic ossification. IMPRESSION: 1. Long segment circumferential esophageal wall thickening, most likely inflammatory in a patient this age. 2. Hepatic steatosis. > Interpreting Provider: Nam Galan MD on 08/03/2024 9:22 AM Nisa Lou DO CT ORDERABLES * XR HIP RIGHT 2VW OR MORE (07/27/2021 10:47 AM CDT) Only the most recent of3 resultswithin the time period is included. Anatomical Region Laterality Modality Pelvis, Lower Extremity Radiogra [facility] 07/27/2021 11:0 7 AM CDT Impressions 07/27/2021 11:24 AM CDT IMPRESSION: Internally fixed intertrochanteric femoral fracture is unchanged alignment. Dictated by Ramon Parr MD (resident in diagnostic radiology). I, Dr. EMRE ROLLINS MD have personally reviewed and interpreted this examination/study. This report was electronically signed by EMRE ROLLINS MD on 07/27/2021 11:24 AM . Narrative 07/27/2021 11:24 AM CDT EXAMINATION: XR HIP RIGHT 2VW OR MORE HISTORY: S72.141D: Closed displaced intertrochanteric fracture of right femur with routine healing, subsequent encounter COMPARISON: Right hip radiographs dated 05/04/2021 FINDINGS: Internally fixed intertrochanteric femoral fracture with a cephalomedullary nail and a distal interlocking screw.. The hardware is intact. Osseous alignment is unchanged. The fracture is healing. Multiple spurs and foci of heterotopic ossification are seen around proximal femur. Procedure Note Emre Rollins MD - 07/27/2021 EXAMINATION: XR HIP RIGHT 2VW OR MORE HISTORY: S72.141D: Closed displaced intertrochanteric fracture of right femur with routine healing, subsequent encounter COMPARISON: Right hip radiographs dated 05/04/2021 FINDINGS: Internally fixed intertrochanteric femoral fracture with a cephalomedullary nail and a distal interlocking screw.. The hardware is intact. Osseous alignment is unchanged. The fracture is healing.Multiple spurs and foci of heterotopic ossification are seen around proximalfemur. IMPRESSION: Internally fixed intertrochanteric femoral fracture is unchangedalignment. Dictated by Ramon Parr MD (resident in diagnostic radiology). I, Dr. EMRE ROLLINS MD have personally reviewed and interpreted this examination/study. This report was electronically signed by EMRE ROLLINS MD on07/27/2021 11:24 AM . Madhav Elizabeth DO DIAGNOSTIC IMAGING O RDERABLES * EEG (06/21/2021 12:00 PM CDT) 06/21/2021 12:0 0 PM CDT Narrative Procedure Note Maureen Price MD - 06/21/2021 12:03 PM CDT [facility] Electroencephalogram Report PATIENT NAME: SHIRLEY ROGERS MR#: [id number] ROOM#: [id number] CSN: [id number] ADMISSION DATE: 06/20/2021 SEX: M : 1990 DATE OF TEST: 06/21/2021 EEG NUMBER: This is a routine 17 channel EEG tracing consisting of 16 channels of EEGand 1 channel of EKG monitoring performed on a 30-year-old patient presented torule out seizures. The condition of the patient during tracing was reported maryam awake and drowsy. Quality of the study was good. During wakefulness, the background activity consisted of low [id number] hertz posterior dominant alpha rhythm. The background was well organizedwith good posterior to anterior gradient. During drowsiness, the backgroundwas replaced by irregular theta rhythm. Photic stimulation andhyperventilation did not elicit any abnormalities. There were no epileptiform dischargesnoticed. The EKG tracing showed a regular heart rate. IMPRESSION: This is a normal awake and drowsy EEG. Clinical correlationis suggested. DICTATOR: MAUREEN PRICE M.D. MP/MODL #:[id number] cc: Fina Armenta PA-C Fina Armenta PA-C NEUROLOGY ORDERABLES [facility] * CT HEAD NON CONTRAST - intracranial hemorrhage (06/20/2021 7:34 PM CDT) Only the most recent of3 resultswithin the time period is included. Anatomical Region Laterality Modality Head Computed Tomogra phy 06/21/2021 7:15 AM CDT Impressions 06/21/2021 7:[address]T Normal head CT. *Reading Radiologist: Jose Clark on 06/21/2021 at 7:15 AM Narrative 06/21/2021 7:15 AM CDT Procedure Title: CT HEAD WO CONTRAST*[id number] HISTORY: Unspecified convulsions COMPARISON: None. TECHNIQUE: Helical CT acquisition without intravenous contrast of the head All CT scans at [facility] are performed using dose optimization techniques as appropriate to a performed exam to include AEC and Adjustment of mA and/or kV according to patient size (as appropriate to indication/reason for exam). . FINDINGS: No acute intracranial hemorrhage or loss of armijo white differentiation to suggest acute infarct. No midline shift or mass lesion. Globes intact. No evident fracture. The visualized paranasal sinuses and mastoid air cells are clear. Procedure Note Jose Clark MD - 06/21/2021 Procedure Title: CT HEAD WO CONTRAST*[id number] HISTORY: Unspecified convulsions COMPARISON: None. TECHNIQUE: Helical CT acquisition without intravenous contrast of the head All CT scans at [facility] are performed using dose optimization techniques as appropriate to a performed exam to include AEC and Adjustment of mA and/or kV according to patient size (as appropriate to indication/reason for exam). . FINDINGS: No acute intracranial hemorrhage or loss of armijo white differentiation to suggest acute infarct. No midline shift or mass lesion. Globes intact. No evident fracture. The visualized paranasal sinuses and mastoid air cells are clear. IMPRESSION Normal head CT. *Reading Radiologist: Jose Clark on 06/21/2021 at 7:15 AM Nam Bolden MD CT ORDERABLES * TROPONIN I (06/20/2021 6:58 PM CDT) Troponin I <0.010 <0.038 ng/mL 06/20/2021 9:27 PM CDT [facility] Blood BLOOD SPECIMEN / Unknown Venipuncture / Unknown 06/20/2021 6:58 PM CDT 06/20/2021 7:01 PM CDT Fina Armenta PA-C LAB - CHEMISTRY [facility]UEL [facility] Organization Address City/State/ZIP Co de Phone Number [facility] [address] [place] [address] * XR CERVICAL SPINE 2 OR 3VW (05/06/2021 12:37 PM CDT) Only the most recent of5 resultswithin the time period is included. Anatomical Region Laterality Modality Spine Radiographic Ashley ging 05/06/2021 1:06 PM CDT Impressions 05/06/2021 1:09 PM CDT Impression: 1. Left occipital condyle fracture not well seen. Normal cervical spine alignment without abnormal motion with bending. This report was electronically signed by MAISHA HOLGUIN on 05/06/2021 1:09 PM . Narrative 05/06/2021 1:09 PM CDT Examination: XR CERVICAL SPINE 2 OR 3VW, XR CERVICAL SPINE 2 OR 3VW History: S02.11FA: Type III occipital condyle fracture, left side, initial encounter for closed fracture Findings:Comparison to 05/06/2021. AP, lateral as well as lateral flexion and extension views of the cervical spine are performed. Left occipital condyle fracture not well seen. Cervical spine alignment and disc spaces are normal. Vertebral body heights are normal. There is no prevertebral soft tissue swelling. There is no abnormal motion with flexion and extension. Procedure Note Maisha Holguin MD - 05/06/2021 Examination: XR CERVICAL SPINE 2 OR 3VW, XR CERVICAL SPINE 2 OR 3VW History: S02.11FA: Type III occipital condyle fracture, left side,initial encounter for closed fracture Findings:Comparison to 05/06/2021. AP, lateral as well as lateral flexion and extension views of the cervical spine are performed. Left occipital condyle fracture not well seen. Cervical spine alignment and disc spaces are normal. Vertebral body heights are normal. There isno prevertebral soft tissue swelling. There is no abnormal motion with flexion and extension. Impression: 1. Left occipital condyle fracture not well seen. Normal cervical spine alignment without abnormal motion with bending. This report was electronically signed by MAISHA HOLGUIN on 05/06/2021 1:09PM . Rox Cabrera APRN-[facility] ING ORDERABLES * APHERESIS/TRANSFUSION ORDER (04/06/2021 3:23 PM CDT) Narrative 04/06/2021 3:23 PM CDT Ordered by an unspecified provider. Scanned Document NURSING - VITAL SIGN S AND ASSESSMENT * XR FEMUR RIGHT 2VW (04/06/2021 10:21 AM CDT) Only the most recent of4 resultswithin the time period is included. Anatomical Region Laterality Modality Lower Extremity Radiographic Ashley ging 04/06/2021 10:2 8 AM CDT Impressions 04/06/2021 10:33 AM CDT Impression: Healing, internally fixated intertrochanteric fracture. Alignment is unchanged. Report dictated by Daniel Peterson MD (resident in diagnostic radiology). I, Dr. EMRE ROLLINS MD have personally reviewed and interpreted this examination/study. This report was electronically signed by EMRE ROLLINS MD on 04/06/2021 10:33 AM . Narrative 04/06/2021 10:33 AM CDT EXAMINATION: XR FEMUR RIGHT 2VW HISTORY: S72.91XA: Closed fracture of right femur, unspecified fracture morphology, unspecified portion of femur, initial encounter COMPARISON: 03/15/2021 FINDINGS: Internally fixated intertrochanteric fracture with intact cephalomedullary nail. Interval development of callus at the fracture site and adjacent heterotopic ossification. Alignment is unchanged. A bone spur at the femoral midshaft is unchanged. Procedure Note Emre Rollins MD - 04/06/2021 EXAMINATION: XR FEMUR RIGHT 2VW HISTORY: S72.91XA: Closed fracture of right femur, unspecified fracture morphology, unspecified portion of femur, initial encounter COMPARISON: 03/15/2021 FINDINGS: Internally fixated intertrochanteric fracture with intactcephalomedullary nail. Interval development of callus at the fracture site and adjacent heterotopic ossification. Alignment is unchanged. A bone spur at the femoral midshaft is unchanged. Impression: Healing, internally fixated intertrochanteric fracture. Alignment is unchanged. Report dictated by Daniel Peterson MD (resident in diagnostic radiology). I, Dr. EMRE ROLLINS MD have personally reviewed and interpreted this examination/study. This report was electronically signed by EMRE ROLLINS MD on04/06/2021 10:33 AM . Madhav Elizabeth DO DIAGNOSTIC IMAGING O RDERABLES * (ABNORMAL) URINALYSIS W/MICROSCOPIC REFLEX TO CULTURE (03/25/2021 8:07 AM CDT) Color UA Yellow Straw, Yellow 03/25/2021 8:25 AM CDT [facility] Clarity UA Clear Clear 03/25/2021 8:25 AM CDT [facility] Specific Protivin UA 1.006 1.005 - 1.030 03/25/2021 8:25 AM CDT [facility] pH UA 7.0 5.0 - 8.0 pH 03/25/2021 8:25 AM CDT [facility] Protein UA Negative Negative 03/25/2021 8:25 AM CDT [facility] Glucose UA Negative Negative 03/25/2021 8:25 AM CDT [facility] Ketone UA Negative Negative 03/25/2021 8:25 AM CDT [facility] Bilirubin UA Negative Negative 03/25/2021 8:25 AM [facility] Blood UA Negative Negative 03/25/2021 8:25 AM [facility] Nitrite UA Negative Negative 03/25/2021 8:25 AM [facility] Leukocyte Esterase Negative Negative 03/25/2021 8:25 AM [facility] Urobilinogen UA 2.0(A) Negative mg/dL 03/25/2021 8:25 AM [facility] RBC UA 0-2 None Seen, 0-2, 3-5 /HPF 03/25/2021 8:25 AM [facility] WBC UA 0-5 None Seen, 0-5 /HPF 03/25/2021 8:25 AM [facility] Squamous Epithelial Cells UA None Seen None Seen, 0-2, 3-5 /HPF 03/25/2021 8:25 AM [facility] Urine URINE SPECIMEN OBTAINED BY CLEAN CATCH PROCEDURE / Unknown Collection / Unknown 03/25/2021 8:07 AM CDT 03/25/2021 8:15 AM CDT Narrative [facility] - 03/25/2021 8:25 AM CDT Culture Not Indicated Case Rucker MD LAB - URINALYSI S ORDERABLES [facility] [address] [place] [address], [facility] [phone] * LIPASE BODY FLUID STL (03/25/2021 8:05 AM CDT) Only the most recent of3 resultswithin the time period is included. Lipase Fluid 118 Not Established For Fluids Units/L 03/25/2021 9:36 AM [facility] Comment:The analytical perfo rmance of this test has been independently validated by [facility]. A reference range has not been established. Comparison of this result with the concentration in blood, serum or plasma is recommended. Fluid PERITONEAL FLUID / Unknown Collection / Unknown 03/25/2021 8:05 AM CDT 03/25/2021 8:15 AM CDT Case Rucker MD LAB - BODY FLUI D ORDERABLES Performing Organization Address City/[facility]/ZIP Co de Phone Number [address] [address], [facility] [phone] * AMYLASE BODY FLUID ([facility] ONLY) (03/25/2021 8:05 AM CDT) Only the most recent of3 resultswithin the time period is included. Amylase Fluid 66 Not Established For Fluids Units/L 03/25/2021 9:36 AM CDT [facility] Comment:The analytical perfo rmance of this test has been independently validated by [facility]. A reference range has not been established. Comparison of this result with the concentration in blood, serum or plasma is recommended. Fluid PERITONEAL FLUID / Unknown Collection / Unknown 03/25/2021 8:05 AM CDT 03/25/2021 8:15 AM CDT Case Rucker MD LAB - BODY FLUI D ORDERABLES Performing Organization Address [facility]/ZIP Co de Phone Number [address] [address], [facility] [phone] * SARS-COV-2 (COVID-19)+INFLU A+B PCR RAPID (03/25/2021 2:30 AM CDT) Only the most recent of2 resultswithin the time period is included. COVID-19 PCR Not detected Not detected 03/25/20 2:59 AM CDT [facility] Influenza A Rapid ARMANDO Not Detected Not Detected 03/25/2021 2:59 AM CDT [facility] Influenza B ARMANDO Rapid Not Detected Not Detected 03/25/2021 2:59 AM CDT [facility] Microbiology SPECIMEN FROM NASOPHARYNGEAL STRUCTURE / Unknown Collection / Unknown 03/25/2021 2:30 AM CDT 03/25/2021 2:32 AM CDT Narrative [facility] - 03/25/2021 2:59 AM CDT Influenza assay performed by Nucleic Acid Amplification. Results do not exclude the possibility of a mixed viral infection. NOTE: Detecting and identifying specific viral nucleic acids from individuals exhibiting signs and symptoms of respiratory infection aids in the diagnosis of respiratory infection, if used in conjunction with other clinical and laboratory findings. The results of this test should not be used as the sole basis for diagnosis, treatment, or patient management decisions. This nucleic acid amplification assay performance was validated by [facility]. This test has been authorized by the Food and Drug administration (FDA)under an Emergency Use Authorization (EUA). This test has been validated in accordance with the FDA's guidance document Policy for Diagnostic Testing in Laboratories Certified to perform High Complexity Testing under CLIA prior to Emergency Use Authorization for Coronavirus Disease-2019 during the Public Health Emergency issued on November 23, 2019. FDA independent review of this validation is pending. This test is only authorized for the duration of time the declaration that circumstances exist justifying the authorization of emergency use of in vitro diagnostic tests for detection of SARS-CoV-2 virus and/or diagnosis of COVID-19 infection under section 564(b)(1) of the Act, 21 U.S.C 360bbb-3 (b)(1), unless the authorization is terminated or revoked sooner. Fact Sheets for this EUA assay are available upon request. Michael Dougherty MD LAB - MICROBIOLOGY O RDERABLES Performing Organization Address City/[facility]/ZIP Co de Phone Number [facility] [address] [place] [address], [facility] [phone] * PTT [facility] (03/24/2021 10:03 PM CDT) APTT 35.2 23.0 - 38.4 Seconds 03/24/2021 10:23 PM CDT [facility] Comment:Suggested therapeuti c range for full dose I.V. unfractionated heparin therapy for venous thromboembolism is 71 to 109 seconds. Blood BLOOD SPECIMEN / Unknown Venipuncture / Unknown 03/24/2021 10:03 PM CDT 03/24/2021 10:14 PM CDT Case Rucker MD LAB - COAGULATI ON ORDERABLES [facility] [address] [place] [address], [facility] [phone] * PT-INR [facility] (03/24/2021 10:03 PM CDT) Only the most recent of3 resultswithin the time period is included. PT 14.0 12.1 - 14.8 Seconds 03/24/2021 10:23 PM CDT [facility] INR 1.1 See Comment 03/24/2021 10:23 PM CDT [facility] Comment:The suggested therap eutic range for standard coumadin (warfarin) therapy is an INR of 2.0-3.0. For high-risk patients (Mechanical Mitral Valve Prosthesis, etc.), the suggested prophylactic therapeutic range is an INR of 2.5-3.5. Blood BLOOD SPECIMEN / Unknown Venipuncture / Unknown 03/24/2021 10:03 PM CDT 03/24/2021 10:14 PM CDT Case Rucker MD LAB - COAGULATI ON ORDERABLES Performing Organization Address [facility] Co de Phone Number [facility] [address] [place] [address], [facility] [phone] * TYPE + SCREEN PANEL (03/24/2021 10:03 PM CDT) Only the most recent of5 resultswithin the time period is included. Antibody Screen NEG 03/24/2021 11:25 PM CDT [facility] ABO Rh AB POS 03/24/2021 11:25 PM CDT [facility] Blood Bank BLOOD SPECIMEN / Unknown Venipuncture / Unknown 03/24/2021 10:03 PM CDT 03/24/2021 10:34 PM CDT Case Rucker MD LAB - BLOOD BAN K ORDERABLES Performing Organization Address [facility]/ZIP Co de Phone Number [facility] [address] [place] [address], [facility] [phone] * AMYLASE BLOOD (03/24/2021 10:03 PM CDT) Only the most recent of2 resultswithin the time period is included. Amylase 92 25 - 125 U/L 03/24/2021 11:10 PM CDT [facility] Blood BLOOD SPECIMEN / Unknown 03/24/2021 10:03 PM CDT 03/24/2021 10:57 PM CDT Case Rucker MD LAB - CHEMISTRY ORDERABLES [facility] [address] [place] [address], [facility] [phone] * CT ABDOMEN PELVIS WO CONTRAST (03/24/2021 3:29 PM CDT) Anatomical Region Laterality Modality Abdomen, Pelvis Computed Tomogra phy 03/24/2021 3:50 PM CDT Impressions 03/24/2021 3:53 PM CDT Moderate size right-sided retroperitoneal hematoma extending from the renal fossa inferiorly along the right paracolic gutter. A surgical drain traverses the course of this hematoma. Prior right nephrectomy. Healing right intertrochanteric fracture with internal fixation hardware in place. *Reading Radiologist: Sarai Drake on 03/24/2021 at 3:53 PM Narrative 03/24/2021 3:[address] abdomen and pelvis without contrast Clinical Indication: Acute diffuse abdominal pain and leukocytosis COMPARISON: None available Technique: Axial CT images from the lung bases through the pubic symphysis were obtained without intravenous contrast. Coronal and sagittal multiplanar reformats were created. Findings: Postsurgical changes compatible with a right nephrectomy. Moderate size right-sided retroperitoneal hematoma extending from the right renal fossa inferiorly along the right paracolic gutter. A surgical drain traverses this region and terminates adjacent to the duodenum. Noncontrast appearance of the left kidney, liver, adrenal glands, spleen, pancreas, and gallbladder are unremarkable. Small and large bowel loops normal in caliber. No bowel wall thickening. Prostate gland normal in size. Bladder wall normal in thickness. No extraluminal gas. No adenopathy. Internal fixation hardware noted proximal right femur. Exuberant callus formation surrounds a right intertrochanteric fracture. The fracture is not solidly healed at this time. Procedure Note Sarai Drake MD - 03/24/2021 CT abdomen and pelvis without contrast Clinical Indication: Acute diffuse abdominal pain and leukocytosis COMPARISON: None available Technique: Axial CT images from the lung bases through the pubic symphysis were obtained without intravenous contrast. Coronal and sagittal multiplanar reformats were created. Findings: Postsurgical changes compatible with a right nephrectomy. Moderate size right-sided retroperitoneal hematoma extending from the right renal fossa inferiorly along the right paracolic gutter. A surgical drain traverses this region and terminates adjacent to the duodenum. Noncontrast appearance of the left kidney, liver, adrenal glands, spleen, pancreas, and gallbladder are unremarkable. Small and large bowel loops normal in caliber. No bowel wall thickening. Prostate gland normal in size. Bladder wall normal in thickness. No extraluminal gas. No adenopathy. Internal fixation hardware noted proximal right femur. Exuberant callus formation surrounds a right intertrochanteric fracture. The fracture is not solidly healed at this time. IMPRESSION Moderate size right-sided retroperitoneal hematoma extending from the renal fossa inferiorly along the right paracolic gutter. A surgical drain traverses the course of this hematoma. Prior right nephrectomy. Healing right intertrochanteric fracture with internal fixation hardware in place. *Reading Radiologist: Sarai Drake on 03/24/2021 at 3:53 PM Fabio Gu MD CT ORDERABLES * (ABNORMAL) HEPATIC FUNCTION PANEL (03/17/2021 3:52 AM CDT) Only the most recent of6 resultswithin the time period is included. Protein Total 7.3 6.0 - 8.3 g/dL 021 4:24 AM CDT [facility] Albumin 2.8(L) 3.4 - 5.0 g/dL 03/17/2021 4:24 AM CDT [facility] Bilirubin Total 2.3(H) 0.2 - 1.2 mg/dL 02/24 4:24 AM CDT [facility] Bilirubin Conjugated 1.5(H) 0.1 - 0.5 mg/dL 03/17/2021 4:24 AM T [facility] Bilirubin Unconjugated 0.8 Unconjugated Bilirubin is a calculated value: Reference ranges have not been established. mg/dL 03/17/2021 4:24 AM T [facility] Alkaline Phosphatase 541(H) 40 - 150 U/L 03/17/2021 4:24 AM T [facility] ALT 175(H) 5 - 55 U/L 03/17/2021 4:24 AM T [facility] AST 340(H) 5 - 34 U/L 03/17/2021 4:24 AM [facility] Albumin/Globulin Ratio 0.6(L) 1.1 - 2.3 03/17/2021 4:24 AM T [facility] Blood BLOOD SPECIMEN / Unknown Venipuncture / Unknown 03/17/2021 3:52 AM CDT 03/17/2021 3:56 AM CDT Shayne Schneider MD LAB - CUSTOMER EXPERIENCE ASSOCIATE RY ORDERABLES Performing Organization Address City/[facility]/ZIP Co de Phone Number [address] [address], [place] [phone] * (ABNORMAL) GGT (03/16/2021 2:31 AM CDT) Only the most recent of3 resultswithin the time period is included. GGT 1,381(H) 9 - 64 Units/L 03/16/2021 3:01 AM CDT [facility] Blood BLOOD SPECIMEN / Unknown Venipuncture / Unknown 03/16/2021 2:31 AM CDT 03/16/2021 2:35 AM CDT Shayne Schneider MD LAB - CUSTOMER EXPERIENCE ASSOCIATE RY ORDERABLES Performing Organization Address City/[facility]/ZIP Co de Phone Number [address] [address], [place] [phone] * BILIRUBIN BODY FLUID STL (03/14/2021 11:51 PM CDT) Only the most recent of2 resultswithin the time period is included. Bilirubin Fluid 2.9 Not Established For Fluids mg/dL 03/15/2021 12:46 AM CDT [facility] Comment:The analytical perfo rmance of this test has been independently validated by [facility]. A reference range has not been established. Comparison of this result with the concentration in blood, serum or plasma is recommended. Fluid PERITONEAL FLUID / Unknown Collection / Unknown 03/14/2021 11:51 PM CDT 03/15/2021 12:03 AM CDT Shayne Schneider MD LAB - BODY FL UID ORDERABLES [address] [address], [facility] [phone] * CALCIUM IONIZED WHOLE BLOOD (03/14/2021 11:49 PM CDT) Only the most recent of15 resultswithin the time period is included. Pathologist [facility] Calcium Ionized 1.19 mmol/L 03/15/2021 12:00 AM CDT [facility] pH 7.39 7.35 - 7.45 pH 03/15/2021 12:00 AM CDT [facility] Ionized Calcium pH Adjusted 1.19 1.19 - 1.34 mmol/L 03/15/2021 12:00 AM CDT [facility] Blood WHOLE BLOOD SPECIMEN / Unknown Venipuncture / Unknown 03/14/2021 11:49 PM CDT 03/14/2021 11:58 PM CDT Shayne Schneider MD LAB - CUSTOMER EXPERIENCE ASSOCIATE RY ORDERABLES [address] [address], [facility] [phone] * (ABNORMAL) RBC MORPHOLOGY (03/14/2021 12:34 AM CDT) Anisocytosis 1+(A) None 03/14/2021 2:11 AM CDT [facility] Macrocytosis Few(A) None 03/14/2021 2:11 AM CDT [facility] Polychromasia Occasional (A) None 03/14/2021 2:11 AM CDT [facility] Ovalocytes Occasional (A) None 03/14/2021 2:11 AM CDT [facility] Blood BLOOD SPECIMEN / Unknown Venipuncture / Unknown 03/14/2021 12:34 AM CDT 03/14/2021 12:44 AM CDT Shayne Schneider MD LAB - HEMATOL OGY ORDERABLES [facility] [address] [place] [address], [facility] [phone] * CT ABDOMEN PELVIS W CONTRAST (03/12/2021 2:59 PM CDT) Only the most recent of2 resultswithin the time period is included. Anatomical Region Laterality Modality Abdomen, Pelvis Computed Tomogra phy 03/12/2021 3:01 PM CDT Impressions 03/12/2021 7:25 PM CDT Impression: 1.Resolved left and improved trace right pleural effusion with associated compressive atelectasis. 2.Unchanged right adrenal hematoma in the right nephrectomy. 3.Interval improved hemoperitoneum in the right lower quadrant. 4.Interval placement of surgical hardware in the right femur with improved alignment of previously seen intertrochanteric fracture. 5.Evolving hepatic laceration. Report drafted by Maricruz Muniz (resident) I, Dr. MAISHA HOLGUIN have personally reviewed and interpreted this examination/study. This report was electronically signed by MAISHA HOLGUIN on 03/12/2021 7:25 PM . Narrative 03/12/2021 7:25 PM CDT Procedure Information DATE: 03/12/2021 3:00 PM EXAMINATION: Computed tomography (CT) of the abdomen and pelvis with contrast TECHNIQUE: CT of the abdomen and pelvis was performed following the uneventful administration of 100 mL of Isovue 370 intravenous contrast according to standard protocol. Clinical Information HISTORY: T14.90XA: Trauma COMPARISON: CT abdomen pelvis with contrast dated 03/04/2021. Findings Lower Chest: Interval resolution of left pleural effusion. Trace residual right pleural effusion with associated atelectasis Hepatobiliary: Interval evolution of previously seen right hepatic lobe laceration. Pancreas: Normal. Spleen: Redemonstration of 2 adjacent subcapsular clefts anteriorly. Otherwise, no abnormality in the spleen. Kidneys: Redemonstration of right nephrectomy. The left kidney is unremarkable. Adrenals: The right adrenal gland remains obscured due to evolving hematoma. The left adrenal gland is unremarkable. Retroperitoneum/peritoneum: There is an evolving hematoma in the right retroperitoneum, grossly unchanged in size. There is redemonstration of a surgical drain through the right peritoneum and terminating near the gastric pylorus and left hepatic lobe. Interval removal of the Burns catheter. Gastrointestinal: Nasogastric tube terminates in the stomach. Interval improvement of previously seen right lower quadrant hemoperitoneum. Pelvis: Interval resolution of previously seen pelvic fluid. Vasculature: Interval decrease in size of previously seen hematoma surrounding the IVC. Bones: Interval placement of surgical hardware in the right femur, with improved alignment of previously seen right intertrochanteric fracture. Redemonstration of fractures of the right eighth through 10th ribs. Soft tissues: Normal. Procedure Note Maisha Holguin MD - 03/12/2021 Procedure Information DATE: 03/12/2021 3:00 PM EXAMINATION: Computed tomography (CT) of the abdomen and pelvis with contrast TECHNIQUE: CT of the abdomen and pelvis was performed following the uneventful administration of 100 mL of Isovue 370 intravenous contrast according to standard protocol. Clinical Information HISTORY: T14.90XA: Trauma COMPARISON: CT abdomen pelvis with contrast dated 03/04/2021. Findings Lower Chest: Interval resolution of left pleural effusion. Trace residual rightpleural effusion with associated atelectasis Hepatobiliary: Interval evolution of previously seen right hepatic lobe laceration. Pancreas: Normal. Spleen: Redemonstration of 2 adjacent subcapsular clefts anteriorly. Otherwise,no abnormality in the spleen. Kidneys: Redemonstration of right nephrectomy. The left kidney is unremarkable. Adrenals: The right adrenal gland remains obscured due to evolving hematoma. The left adrenal gland is unremarkable. Retroperitoneum/peritoneum: There is an evolving hematoma in the right retroperitoneum, grossly unchanged in size. There is redemonstration of a surgical drain through the right peritoneum and terminating near the gastric pylorus and left hepatic lobe. Interval removal of the Burns catheter. Gastrointestinal: Nasogastric tube terminates in the stomach. Interval improvement of previously seen right lower quadrant hemoperitoneum. Pelvis: Interval resolution of previously seen pelvic fluid. Vasculature: Interval decrease in size of previously seen hematoma surrounding theIVC. Bones: Interval placement of surgical hardware in the right femur, withimproved alignment of previously seen right intertrochanteric fracture. Redemonstration of fractures of the right eighth through 10th ribs. Soft tissues: Normal. Impression: 1.Resolved left and improved trace right pleural effusion withassociated compressive atelectasis. 2.Unchanged right adrenal hematoma in the right nephrectomy. 3.Interval improved hemoperitoneum in the right lower quadrant. 4.Interval placement of surgical hardware in the right femur withimproved alignment of previously seen intertrochanteric fracture. 5.Evolving hepatic laceration. Report drafted by Maricruz Muniz (resident) I, Dr. MAISHA HOLGUIN have personally reviewed and interpreted this examination/study. This report was electronically signed by MAISHA HOLGUIN on 03/12/2021 7:25PM . Shayne Schneider MD CT ORDERABLES * (ABNORMAL) TRIGLYCERIDES BLOOD (03/12/2021 1:20 PM CDT) Triglycerides 279(H) <150 mg/dL 03/12/2021 4:23 PM CDT [facility] Comment: ATP III Classification of Triglycerides: <150 mg/dL: Normal 150 - 199 mg/dL: Borderline High 200 - 400 mg/dL: High >500 mg/dL: Very High Blood BLOOD SPECIMEN / Unknown Venipuncture / Unknown 03/12/2021 1:20 PM CDT 03/12/2021 1:45 PM CDT Shayne Schneider MD LAB - CUSTOMER EXPERIENCE ASSOCIATE RY ORDERABLES [facility] [address] [place] [address], [place] [phone] * TRIGLYCERIDES BODY FLUID ([facility] ONLY) (03/12/2021 9:43 AM CDT) Triglycerides Fluid 131 Not Established For Fluids mg/dL 03/12/2021 10:35 AM CDT [facility] Comment:The analytical perfo rmance of this test has been independently validated by [facility]. A reference range has not been established. Comparison of this result with the concentration in blood, serum or plasma is recommended. Fluid PERITONEAL FLUID / Unknown Collection / Unknown 03/12/2021 9:43 AM CDT 03/12/2021 9:50 AM CDT Shayne Schneider MD LAB - BODY FL UID ORDERABLES Performing Organization Address [facility] Co de Phone Number [address] [address], [facility] [phone] * CREATININE BODY FLUID ([facility] ONLY) (03/12/2021 9:43 AM CDT) Only the most recent of2 resultswithin the time period is included. Creatinine Fluid 0.8 Not Established For Fluids mg/dL 03/13/2021 3:06 PM CDT [facility] Comment:The analytical perfo rmance of this test has been independently validated by [facility]. A reference range has not been established. Comparison of this result with the concentration in blood, serum or plasma is recommended. Fluid PERITONEAL FLUID / Unknown Collection / Unknown 03/12/2021 9:43 AM CDT 03/12/2021 9:50 AM CDT Shayne Schneider MD LAB - BODY FL UID ORDERABLES [address] [address], [place] [phone] * PREPARE (CROSSMATCH) RBC UNIT(S), 1 Units (03/12/2021 1:17 AM CDT) Only the most recent of8 resultswithin the time period is included. Unit Description N/A [facility] Blood Bank BLOOD SPECIMEN / Unknown 03/08/2021 6:22 AM CDT Shayne Schneider MD LAB - BLOOD B ANK ORDERABLES [facility] [address] [place] [address], [facility] [phone] * TRANSFUSE RED BLOOD CELL LEUKOREDUCED UNIT(S) (03/11/2021 7:25 AM CDT) Shayne Schneider MD NURSING - BLO OD PROD TRANSFUSION * XR ABDOMEN KUB PORTABLE (03/11/2021 4:44 AM CDT) Only the most recent of2 resultswithin the time period is included. Anatomical Region Laterality Modality Abdomen Radiographic Ashley ging 03/11/2021 1:15 PM CDT Impressions 03/11/2021 1:32 PM CDT IMPRESSION: Gaseous dilatation of the loops of large bowel measuring up to 7.7 cm in the right lower quadrant. There is visualized in the distal rectum. This is likely representing ileus. Report dictated by Chris Nash M.D. (resident in diagnostic radiology). I, Dr. LUBA OSUNA have personally reviewed and interpreted this examination/study. This report was electronically signed by LUBA OSUNA on 03/11/2021 1:32 PM . Narrative 03/11/2021 1:32 PM CDT EXAMINATION: XR ABDOMEN KUB PORTABLE HISTORY: S22.41XA: Fracture of ribs, three, closed, right, initial encounter COMPARISON: Abdominal x-ray dated 03/06/2021 FINDINGS: *Enteric tube courses below the diaphragm and coils within the stomach with the distal tip superimposing the gastric fundus. *A surgical drain is noted in the right abdomen. *Postoperative appearance of the partially imaged right femur intratrochanteric fracture using intramedullary nail and interlocking screw is seen. A surgical drain is noted overlying the right femur. There is increased gaseous dilatation of the loops of large bowel measuring up to 7.7 cm in the right lower quadrant. There is visualized in the distal rectum. Free intraperitoneal air is not adequately assessed on supine radiographs. No pathological calcifications are seen. The lung bases are clear. Procedure Note Luba Osuna, DO - 03/11/2021 EXAMINATION: XR ABDOMEN KUB PORTABLE HISTORY: S22.41XA: Fracture of ribs, three, closed, right, initial encounter COMPARISON: Abdominal x-ray dated 03/06/2021 FINDINGS: *Enteric tube courses below the diaphragm and coils within the stomach with the distal tip superimposing the gastric fundus. *A surgical drain is noted in the right abdomen. *Postoperative appearance of the partially imaged right femur intratrochanteric fracture using intramedullary nail and interlocking screw is seen. A surgical drain is noted overlying the right femur. There is increased gaseous dilatation of the loops of large bowel measuring up to 7.7 cm in the right lower quadrant. There is visualizedin the distal rectum. Free intraperitoneal air is not adequately assessedon supine radiographs. No pathological calcifications are seen. The lung bases are clear. IMPRESSION: Gaseous dilatation of the loops of large bowel measuring up to 7.7 cm in the right lower quadrant. There is visualized in the distal rectum. This is likely representing ileus. Report dictated by Chris Nash M.D. (resident in diagnostic radiology). I, Dr. LUBA OUSNA have personally reviewed and interpreted this examination/study. This report was electronically signed by LUBA OSUNA on 03/11/2021 1:32 PM . Shayne Schneider MD DIAGNOSTIC IM AGING ORDERABLES * CULTURE MRSA (03/10/2021 8:58 PM CDT) Culture Negative for methicillin-resist ant Staphylococcus aureus (MRSA) LIVIER 03/12/2021 10:32 AM CDT [facility] MICROBIOLOGY Microbiology SPECIMEN FROM NASAL FOSSAE / Unknown Collection / Unknown 03/10/2021 8:58 PM CDT 03/10/2021 9:15 PM CDT Gagandeep Farmer MD LAB - MICROBIOLOGY O RDERABLES [facility] MICROBIOLOGY [address] [place] [address], [facility] [phone] * (ABNORMAL) URINALYSIS W/MICROSCOPIC NO CULTURE (03/10/2021 8:57 PM CDT) Only the most recent of2 resultswithin the time period is included. Color UA Carmen(A) Straw, Yellow 03/10/2021 9:23 PM [facility] Clarity UA Clear Clear 03/10/2021 9:23 PM [facility] Specific Protivin UA 1.011 1.005 - 1.030 03/10/2021 9:23 PM [facility] pH UA 7.0 5.0 - 8.0 pH 03/10/2021 9:23 PM [facility] Protein UA Negative Negative 03/10/2021 9:23 PM [facility] Glucose UA Negative Negative 03/10/2021 9:23 PM [facility] Ketone UA Negative Negative 03/10/2021 9:23 PM [facility] Bilirubin UA Negative Negative 03/10/2021 9:23 PM [facility] Blood UA Negative Negative 03/10/2021 9:23 PM [facility] Nitrite UA Negative Negative 03/10/2021 9:23 PM [facility] Leukocyte Esterase Negative Negative 03/10/2021 9:23 PM [facility] Urobilinogen UA 4.0(A) Negative mg/dL 03/10/2021 9:23 PM [facility] RBC UA 0-2 None Seen, 0-2, 3-5 /HPF 03/10/2021 9:23 PM [facility] WBC UA 0-5 None Seen, 0-5 /HPF 03/10/2021 9:23 PM [facility] Squamous Epithelial Cells UA 0-2 None Seen, 0-2, 3-5 /HPF 03/10/2021 9:23 PM [facility] Urine URINE SPECIMEN OBTAINED VIA [facility] / Unknown Collection / Unknown 03/10/2021 8:57 PM CDT 03/10/2021 9:15 PM CDT [facility] - 03/10/2021 9:23 PM CDT Prosper Huynh PA-C LAB - URINALYSIS ORDERABLES [facility] [address] [place] [address], [facility] [phone] * (ABNORMAL) DIFFERENTIAL MANUAL (03/08/2021 5:04 PM CDT) WBC (corrected for NRBC) 10.7 10 3/uL 03/08/2021 5:53 PM CDT [facility] Total Cell Count 100 03/08/20 21 5:53 PM [facility] Neutrophils Absolute Manual 7.70(H) 1.60 - 7.00 10 3/uL 03/08/2021 5:53 PM CDT [facility] Comment:(BANDS+SEGS) x WBC = NEUT # (ANC) Lymphocyte Absolute Manual 0.75(L) 1.10 - 3.90 10 3/uL 03/08/2021 5:53 PM CDT [facility] Monocytes Absolute Manual 1.93(H) 0.26 - 1.07 10 3/uL 03/08/2021 5:53 PM CDT [facility] Basophil Absolute Manual 0.21(H) 0.00 - 0.08 10 3/uL 03/08/2021 5:53 PM CDT [facility] Band % Manual 3 0 - 10 % 03/08/2021 5:53 PM [facility] Neutrophil % Manual 69 35 - 70 % 03/08/2021 5:53 PM CDT [facility] Lymphocyte % Manual 7(L) 20 - 43 % 03/08/2021 5:53 PM CDT [facility] Monocytes % Manual 18(H) 5 - 13 % 03/08/2021 5:53 PM [facility] Basophils % Manual 2 0 - 2 % 03/08/2021 5:53 PM T [facility] Metamyelocyte % Manual 1(H) 0 % 03/08/2021 5:53 PM [facility] nRBC Manual 1(H) 0 /100 WBC 03/08/2021 5:53 PM [facility] Platelet Estimate Adequate Adequate 03/08/2021 5:53 PM [facility] Anisocytosis 1+(A) None 03/08/2021 5:53 PM CDT [facility] Polychromasia Occasional( A) None 03/08/2021 5:53 PM CDT [facility] Basophilic Stippling Occasional( A) None 03/08/2021 5:53 PM CDT [facility] Ovalocytes Occasional( A) None 03/08/2021 5:53 PM CDT [facility] Blood BLOOD SPECIMEN / Unknown Venipuncture / Unknown 03/08/2021 5:04 PM CDT 03/08/2021 5:16 PM CDT Audrey Meza MD LAB - HEMATOL OGY ORDERABLES [facility] [address] [place] [address], [facility] [phone] * [place] ISMAEL SURGERY (03/08/2021 4:17 PM CDT) Narrative [facility] RAD[facility] - 03/08/2021 4:19 PM CDT Fluoroscopy was used for this exam in the OR. Please see the Operative report. Madhav Elizabeth DO FLUOROSCOPY ORDERABL ES [facility] * (ABNORMAL) BLOOD GASES ART + COOX PANEL (03/08/2021 3:23 PM CDT) Only the most recent of35 resultswithin the time period is included. pH Arterial 7.31(L) 7.35 - 7.45 pH 03/08/2021 3:29 PM CDT [facility] pO2 Arterial 230(H) 80 - 100 mmHg 03/08/2021 3:29 PM CDT [facility] pCO2 Arterial 44 35 - 45 mmHg 3:29 PM CDT [facility] HCO3 Arterial 22 20 - 30 mmol/l 03/08/2021 3:29 PM CDT [facility] BE Arterial -3.9(L) -2.0 - 2.0 mmol/L 03/08/2021 3:29 PM CDT [facility] Oxyhemoglobin Arterial 96.8 % 03/08/2021 3:29 PM CDT [facility] Dexoyhemoglobin (HHB) % 0.0 % 03/08/2021 3:29 PM CDT [facility] Methemoglobin <0.8 0.0 - 2.0 % 03/08/2021 3:29 PM T [facility] Carboxyhemoglobin 2.6(H) 0.0 - 2.0 % 2020 3:29 PM T [facility] O2 Content Arterial 12.2 Interpret within clinical context mg/dL 03/08/2021 3:29 PM [facility] Hemoglobin by COOX 8.5(L) 12.0 - 17.6 g/dL 03/08/2021 3:29 PM T [facility] O2 Saturation Arterial 100 90 - 100 % 03/08/2021 3:29 PM T [facility] FI O2 Arterial 100.0 % 03/08/2021 3:29 PM T [facility] Blood, arterial ARTERIAL BLOOD SPECIMEN / Unknown Arterial Puncture / Unknown 03/08/2021 3:23 PM CDT 03/08/2021 3:27 PM CDT Narrative [facility] - 03/08/2021 3:29 PM CDT Carboxyhemoglobin Normal Concentration: Non-smokers: 0-2%; Smokers: 0-9%; Toxic: >20% Ollie Jasmine MD LAB - BLOOD GASES OR DERABLES [facility] [address] [place] [address], [facility] [phone] * ETT LINE PERFORMABLE (03/08/2021 2:40 PM CDT) Narrative Nam Gil Anes Asst - 03/08/2021 2:40 PM CDT Nam Gil Anes Asst 03/08/2021 2:42 PM Endotracheal Tube Placement: Patient Location: OR. Intubation Event Date/Time: 03/08/2021 1:56 PM Procedure: intubation (41455). Procedure Section: Sedation: under general anesthesia. Indications for Airway Management: anesthesia Procedure pretreatments used? No Induction: standard IV Patient Position: supine Mask Ventilation: not attempted (C-collar ). Blade Type: Video Blade Size: 3 Laryngoscopy View: grade 1 (full cords) Intubation Adjuncts: video laryngoscope Tube: endotracheal tube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 Schneider MD CT ORDERABLES * CT THORACIC SPINE WO CONTRAST - T/L-spine trauma, spine fracture (03/01/2021 2:08 AM CDT) Anatomical Region Laterality Modality Spine Computed Tomogra phy 03/01/2021 9:40 AM CDT Impressions 03/01/2021 10:53 AM CDT IMPRESSION: 1.No acute intracranial hemorrhage, mass effect, or midline shift. 2.There is a comminuted avulsion fracture of the left occipital condyle. 3.No acute facial bone fractures identified. 4.No evidence of acute fracture in the cervical, thoracic, or lumbar spine. 5.Please refer to concurrent dedicated body report for findings in the chest, abdomen, pelvis. Dictated by Elvira Shi MD (resident in diagnostic radiology). This report was approved by Elvira Shi on 03/01/2021 10:[address] DANIELLE Dubon have personally reviewed and interpreted this examination/study. This report was electronically signed by DANIELLE MACE on 03/01/2021 10:53 AM . Narrative 03/01/2021 10:[address] HEAD WO CONTRAST, CT FACIAL BONES WO CONTRAST, CT LUMBAR SPINE WO CONTRAST, CT CERVICAL SPINE WO CONTRAST, CT THORACIC SPINE WO CONTRAST DATE: 03/01/2021 2:12 AM EXAMINATION: 1. Computed tomography (CT) of the head without contrast 2. CT of the maxillofacial bones, orbits, and paranasal sinuses without contrast 3. CT of the cervical spine without contrast 4. CT of the thoracic spine without contrast 5. CT of the lumbar spine without contrast HISTORY: Trauma TECHNIQUE: CT of the head, cervical spine, and maxillofacial bones, orbits, and paranasal sinuses was performed without contrast according to standard protocol. Reformatted axial, sagittal, and coronal images of the thoracic and lumbar spine were obtained by the technologist from a concurrently performed body CT and sent to the workstation for review. COMPARISON: No prior study is available for comparison at the time of this dictation. FINDINGS: Head: No acute intra- or extra-axial fluid collections are identified. There is mild cerebral volume loss with associated ex vacuo ventricular dilatation.1 The basilar cisterns are patent. No mass effect or midline shift is seen. The armijo-white matter differentiation is normal. There is minimal right scalp soft tissue swelling. There is a comminuted avulsion fracture of the left occipital condyle . Maxillofacial: The orbits appear normal. There is moderate mucosal thickening of the left maxillary sinus. Otherwise the paranasal sinuses are clear. The hard palate, mandible, and temporomandibular joints appear normal. No acute facial bone fractures are identified. The mastoid air cells are clear. No soft tissue abnormality is identified. Endotracheal tube is partially visualized. There is mild periodontal disease with the mild periapical lucencies along the roots of the left maxillary molars. Cervical spine: There is straightening of the lordosis. There is redemonstration of a comminuted avulsion fracture of the left occipital condyle (series 4 image 63 and series 6, images 36-38). Vertebral bodies are normal in height without evidence of acute fracture. The craniocervical junction is normal. The intervertebral discs appear normal. No significant central canal stenosis is seen. The facets appear normal. The uncovertebral joints appear normal. No neural foraminal stenosis is seen. There is mild pulmonary contusion in the superior posterior aspect of right lung. Thoracic spine: The alignment is normal. Vertebral bodies are normal in height without evidence of acute fracture. The intervertebral discs appear normal. No central canal stenosis is seen. The facets appear normal. No neural foraminal stenosis is seen. Small right pleural effusion/hemothorax with adjacent compressive atelectasis, minimal left dependent subsegmental atelectasis are noted. The endotracheal tube terminates in the distal thoracic trachea. Lumbar spine: The alignment is maintained. Vertebral bodies are normal in height without evidence of acute fracture. There is diffuse disc bulge at multiple levels. No central canal stenosis is seen. The facets appear normal. 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 There is a hematoma around the right psoas muscle. Shattered right kidney with perirenal hematoma with significant mass effect on adjacent IVC is noted. Procedure Note Danielle Mace MD - 03/01/2021 CT HEAD WO CONTRAST, CT FACIAL BONES WO CONTRAST, CT LUMBAR SPINE WO CONTRAST, CT CERVICAL SPINE WO CONTRAST, CT THORACIC SPINE WO CONTRAST DATE: 03/01/2021 2:12 AM EXAMINATION: 1. Computed tomography (CT) of the head without contrast 2. CT of the maxillofacial bones, orbits, and paranasal sinuses without contrast 3. CT of the cervical spine without contrast 4. CT of the thoracic spine without contrast 5. CT of the lumbar spine without contrast HISTORY: Trauma TECHNIQUE: CT of the head, cervical spine, and maxillofacial bones, orbits, and paranasal sinuses was performed without contrast accordingto standard protocol. Reformatted axial, sagittal, and coronal images ofthe thoracic and lumbar spine were obtained by the technologist from a concurrently performed body CT and sent to the workstation for review. COMPARISON: No prior study is available for comparison at the time ofthis dictation. FINDINGS: Head: No acute intra- or extra-axial fluid collections are identified. Thereis mild cerebral volume loss with associated ex vacuo ventricular dilatation.1 The basilar cisterns are patent. No mass effect or midline shift is seen. The armijo-white matter differentiation is normal. There is minimal right scalp soft tissue swelling. There is a comminuted avulsion fracture of the left occipital condyle . Maxillofacial: The orbits appear normal. There is moderate mucosal thickening of theleft maxillary sinus. Otherwise the paranasal sinuses are clear. The hard palate, mandible, and temporomandibular joints appear normal. No acute facial bone fractures are identified. The mastoid air cells are clear.No soft tissue abnormality is identified. Endotracheal tube is partially visualized. There is mild periodontal disease with the mild periapical lucencies along the roots of the left maxillary molars. Cervical spine: There is straightening of the lordosis. There is redemonstration of a comminuted avulsion fracture of the left occipital condyle (series 4image 63 and series 6, images 36-38). Vertebral bodies are normal in height without evidence of acute fracture. The craniocervical junction isnormal. The intervertebral discs appear normal. No significant central canal stenosis is seen. The facets appear normal. The uncovertebral joints appear normal. No neural foraminal stenosis is seen. There is mild pulmonary contusion in the superior posterior aspect of right lung. Thoracic spine: The alignment is normal. Vertebral bodies are normal in height without evidence of acute fracture. The intervertebral discs appear normal. No central canal stenosis is seen. The facets appear normal. No neural foraminal stenosis is seen. Small right pleural effusion/hemothorax with adjacent compressive atelectasis, minimal left dependent subsegmental atelectasis are noted. The endotracheal tube terminates in the distal thoracic trachea. Lumbar spine: The alignment is maintained. Vertebral bodies are normal in heightwithout evidence of acute fracture. There is diffuse disc bulge at multiple levels. No central canal stenosis is seen. The facets appear normal.There is developmental lumbar spinal canal stenosis with superimposedmultilevel degenerative disc and joint disease. There is a hematoma around theright psoas muscle. Shattered right kidney with perirenal hematoma with significant mass effect on adjacent IVC is noted. IMPRESSION: 1.No acute intracranial hemorrhage, mass effect, or midline shift. 2.There is a comminuted avulsion fracture of the left occipital condyle. 3.No acute facial bone fractures identified. 4.No evidence of acute fracture in the cervical, thoracic, or lumbarspine. 5.Please refer to concurrent dedicated body report for findings in the chest, abdomen, pelvis. Dictated by Elvira Shi MD (resident in diagnostic radiology). This report was approved by Elvira Shi on 03/01/2021 10:53 AM . I, Dr. DANIELLE MACE have personally reviewed and interpreted this examination/study. This report was electronically signed by DANIELLE MACE on03/01/2021 10:53 AM . Shayne Schneider MD CT ORDERABLES * CT CERVICAL SPINE WO CONTRAST - C-Spine Trauma, Spine fracture (03/01/2021 2:08 AM CDT) Anatomical Region Laterality Modality Spine Computed Tomogra phy 03/01/2021 9:40 AM CDT Impressions 03/01/2021 10:53 AM CDT IMPRESSION: 1.No acute intracranial hemorrhage, mass effect, or midline shift. 2.There is a comminuted avulsion fracture of the left occipital condyle. 3.No acute facial bone fractures identified. 4.No evidence of acute fracture in the cervical, thoracic, or lumbar spine. 5.Please refer to concurrent dedicated body report for findings in the chest, abdomen, pelvis. Dictated by Elvira Shi MD (resident in diagnostic radiology). This report was approved by Elvira Shi on 03/01/2021 10:53 AM . I, Dr. DANIELLE MACE have personally reviewed and interpreted this examination/study. This report was electronically signed by DANIELLE MACE on 03/01/2021 10:53 AM . Narrative 03/01/2021 10:[address] HEAD WO CONTRAST, CT FACIAL BONES WO CONTRAST, CT LUMBAR SPINE WO CONTRAST, CT CERVICAL SPINE WO CONTRAST, CT THORACIC SPINE WO CONTRAST DATE: 03/01/2021 2:12 AM EXAMINATION: 1. Computed tomography (CT) of the head without contrast 2. CT of the maxillofacial bones, orbits, and paranasal sinuses without contrast 3. CT of the cervical spine without contrast 4. CT of the thoracic spine without contrast 5. CT of the lumbar spine without contrast HISTORY: Trauma TECHNIQUE: CT of the head, cervical spine, and maxillofacial bones, orbits, and paranasal sinuses was performed without contrast according to standard protocol. Reformatted axial, sagittal, and coronal images of the thoracic and lumbar spine were obtained by the technologist from a concurrently performed body CT and sent to the workstation for review. COMPARISON: No prior study is available for comparison at the time of this dictation. FINDINGS: Head: No acute intra- or extra-axial fluid collections are identified. There is mild cerebral volume loss with associated ex vacuo ventricular dilatation.1 The basilar cisterns are patent. No mass effect or midline shift is seen. The armijo-white matter differentiation is normal. There is minimal right scalp soft tissue swelling. There is a comminuted avulsion fracture of the left occipital condyle . Maxillofacial: The orbits appear normal. There is moderate mucosal thickening of the left maxillary sinus. Otherwise the paranasal sinuses are clear. The hard palate, mandible, and temporomandibular joints appear normal. No acute facial bone fractures are identified. The mastoid air cells are clear. No soft tissue abnormality is identified. Endotracheal tube is partially visualized. There is mild periodontal disease with the mild periapical lucencies along the roots of the left maxillary molars. Cervical spine: There is straightening of the lordosis. There is redemonstration of a comminuted avulsion fracture of the left occipital condyle (series 4 image 63 and series 6, images 36-38). Vertebral bodies are normal in height without evidence of acute fracture. The craniocervical junction is normal. The intervertebral discs appear normal. No significant central canal stenosis is seen. The facets appear normal. The uncovertebral joints appear normal. No neural foraminal stenosis is seen. There is mild pulmonary contusion in the superior posterior aspect of right lung. Thoracic spine: The alignment is normal. Vertebral bodies are normal in height without evidence of acute fracture. The intervertebral discs appear normal. No central canal stenosis is seen. The facets appear normal. No neural foraminal stenosis is seen. Small right pleural effusion/hemothorax with adjacent compressive atelectasis, minimal left dependent subsegmental atelectasis are noted. The endotracheal tube terminates in the distal thoracic trachea. Lumbar spine: The alignment is maintained. Vertebral bodies are normal in height without evidence of acute fracture. There is diffuse disc bulge at multiple levels. No central canal stenosis is seen. The facets appear normal. 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 There is a hematoma around the right psoas muscle. Shattered right kidney with perirenal hematoma with significant mass effect on adjacent IVC is noted. Procedure Note Danielle Mace MD - 03/01/2021 CT HEAD WO CONTRAST, CT FACIAL BONES WO CONTRAST, CT LUMBAR SPINE WO CONTRAST, CT CERVICAL SPINE WO CONTRAST, CT THORACIC SPINE WO CONTRAST DATE: 03/01/2021 2:12 AM EXAMINATION: 1. Computed tomography (CT) of the head without contrast 2. CT of the maxillofacial bones, orbits, and paranasal sinuses without contrast 3. CT of the cervical spine without contrast 4. CT of the thoracic spine without contrast 5. CT of the lumbar spine without contrast HISTORY: Trauma TECHNIQUE: CT of the head, cervical spine, and maxillofacial bones, orbits, and paranasal sinuses was performed without contrast accordingto standard protocol. Reformatted axial, sagittal, and coronal images ofthe thoracic and lumbar spine were obtained by the technologist from a concurrently performed body CT and sent to the workstation for review. COMPARISON: No prior study is available for comparison at the time ofthis dictation. FINDINGS: Head: No acute intra- or extra-axial fluid collections are identified. Thereis mild cerebral volume loss with associated ex vacuo ventricular dilatation.1 The basilar cisterns are patent. No mass effect or midline shift is seen. The armijo-white matter differentiation is normal. There is minimal right scalp soft tissue swelling. There is a comminuted avulsion fracture of the left occipital condyle . Maxillofacial: The orbits appear normal. There is moderate mucosal thickening of theleft maxillary sinus. Otherwise the paranasal sinuses are clear. The hard palate, mandible, and temporomandibular joints appear normal. No acute facial bone fractures are identified. The mastoid air cells are clear.No soft tissue abnormality is identified. Endotracheal tube is partially visualized. There is mild periodontal disease with the mild periapical lucencies along the roots of the left maxillary molars. Cervical spine: There is straightening of the lordosis. There is redemonstration of a comminuted avulsion fracture of the left occipital condyle (series 4image 63 and series 6, images 36-38). Vertebral bodies are normal in height without evidence of acute fracture. The craniocervical junction isnormal. The intervertebral discs appear normal. No significant central canal stenosis is seen. The facets appear normal. The uncovertebral joints appear normal. No neural foraminal stenosis is seen. There is mild pulmonary contusion in the superior posterior aspect of right lung. Thoracic spine: The alignment is normal. Vertebral bodies are normal in height without evidence of acute fracture. The intervertebral discs appear normal. No central canal stenosis is seen. The facets appear normal. No neural foraminal stenosis is seen. Small right pleural effusion/hemothorax with adjacent compressive atelectasis, minimal left dependent subsegmental atelectasis are noted. The endotracheal tube terminates in the distal thoracic trachea. Lumbar spine: The alignment is maintained. Vertebral bodies are normal in heightwithout evidence of acute fracture. There is diffuse disc bulge at multiple levels. No central canal stenosis is seen. The facets appear normal.There is developmental lumbar spinal canal stenosis with superimposedmultilevel degenerative disc and joint disease. There is a hematoma around theright psoas muscle. Shattered right kidney with perirenal hematoma with significant mass effect on adjacent IVC is noted. IMPRESSION: 1.No acute intracranial hemorrhage, mass effect, or midline shift. 2.There is a comminuted avulsion fracture of the left occipital condyle. 3.No acute facial bone fractures identified. 4.No evidence of acute fracture in the cervical, thoracic, or lumbarspine. 5.Please refer to concurrent dedicated body report for findings in the chest, abdomen, pelvis. Dictated by Elvira Shi MD (resident in diagnostic radiology). This report was approved by Elvira Shi on 03/01/2021 10:[address] DANIELLE Dubon have personally reviewed and interpreted this examination/study. This report was electronically signed by DANIELLE MACE on03/01/2021 10:53 AM . Shayne Schneider MD CT ORDERABLES * CT FACIAL BONES WO CONTRAST - Facial trauma, fx suspected, blunt (03/01/2021 2:08 AM CDT) Anatomical Region Laterality Modality Head Computed Tomogra phy 03/01/2021 9:40 AM CDT Impressions 03/01/2021 10:53 AM CDT IMPRESSION: 1.No acute intracranial hemorrhage, mass effect, or midline shift. 2.There is a comminuted avulsion fracture of the left occipital condyle. 3.No acute facial bone fractures identified. 4.No evidence of acute fracture in the cervical, thoracic, or lumbar spine. 5.Please refer to concurrent dedicated body report for findings in the chest, abdomen, pelvis. Dictated by Elvira Shi MD (resident in diagnostic radiology). This report was approved by Elvira Shi on 03/01/2021 10:[address] DANIELLE Dubon have personally reviewed and interpreted this examination/study. This report was electronically signed by DANIELLE MACE on 03/01/2021 10:53 AM . Narrative 03/01/2021 10:[address] HEAD WO CONTRAST, CT FACIAL BONES WO CONTRAST, CT LUMBAR SPINE WO CONTRAST, CT CERVICAL SPINE WO CONTRAST, CT THORACIC SPINE WO CONTRAST DATE: 03/01/2021 2:12 AM EXAMINATION: 1. Computed tomography (CT) of the head without contrast 2. CT of the maxillofacial bones, orbits, and paranasal sinuses without contrast 3. CT of the cervical spine without contrast 4. CT of the thoracic spine without contrast 5. CT of the lumbar spine without contrast HISTORY: Trauma TECHNIQUE: CT of the head, cervical spine, and maxillofacial bones, orbits, and paranasal sinuses was performed without contrast according to standard protocol. Reformatted axial, sagittal, and coronal images of the thoracic and lumbar spine were obtained by the technologist from a concurrently performed body CT and sent to the workstation for review. COMPARISON: No prior study is available for comparison at the time of this dictation. FINDINGS: Head: No acute intra- or extra-axial fluid collections are identified. There is mild cerebral volume loss with associated ex vacuo ventricular dilatation.1 The basilar cisterns are patent. No mass effect or midline shift is seen. The armijo-white matter differentiation is normal. There is minimal right scalp soft tissue swelling. There is a comminuted avulsion fracture of the left occipital condyle . Maxillofacial: The orbits appear normal. There is moderate mucosal thickening of the left maxillary sinus. Otherwise the paranasal sinuses are clear. The hard palate, mandible, and temporomandibular joints appear normal. No acute facial bone fractures are identified. The mastoid air cells are clear. No soft tissue abnormality is identified. Endotracheal tube is partially visualized. There is mild periodontal disease with the mild periapical lucencies along the roots of the left maxillary molars. Cervical spine: There is straightening of the lordosis. There is redemonstration of a comminuted avulsion fracture of the left occipital condyle (series 4 image 63 and series 6, images 36-38). Vertebral bodies are normal in height without evidence of acute fracture. The craniocervical junction is normal. The intervertebral discs appear normal. No significant central canal stenosis is seen. The facets appear normal. The uncovertebral joints appear normal. No neural foraminal stenosis is seen. There is mild pulmonary contusion in the superior posterior aspect of right lung. Thoracic spine: The alignment is normal. Vertebral bodies are normal in height without evidence of acute fracture. The intervertebral discs appear normal. No central canal stenosis is seen. The facets appear normal. No neural foraminal stenosis is seen. Small right pleural effusion/hemothorax with adjacent compressive atelectasis, minimal left dependent subsegmental atelectasis are noted. The endotracheal tube terminates in the distal thoracic trachea. Lumbar spine: The alignment is maintained. Vertebral bodies are normal in height without evidence of acute fracture. There is diffuse disc bulge at multiple levels. No central canal stenosis is seen. The facets appear normal. 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 There is a hematoma around the right psoas muscle. Shattered right kidney with perirenal hematoma with significant mass effect on adjacent IVC is noted. Procedure Note Danielle Mace MD - 03/01/2021 CT HEAD WO CONTRAST, CT FACIAL BONES WO CONTRAST, CT LUMBAR SPINE WO CONTRAST, CT CERVICAL SPINE WO CONTRAST, CT THORACIC SPINE WO CONTRAST DATE: 03/01/2021 2:12 AM EXAMINATION: 1. Computed tomography (CT) of the head without contrast 2. CT of the maxillofacial bones, orbits, and paranasal sinuses without contrast 3. CT of the cervical spine without contrast 4. CT of the thoracic spine without contrast 5. CT of the lumbar spine without contrast HISTORY: Trauma TECHNIQUE: CT of the head, cervical spine, and maxillofacial bones, orbits, and paranasal sinuses was performed without contrast accordingto standard protocol. Reformatted axial, sagittal, and coronal images ofthe thoracic and lumbar spine were obtained by the technologist from a concurrently performed body CT and sent to the workstation for review. COMPARISON: No prior study is available for comparison at the time ofthis dictation. FINDINGS: Head: No acute intra- or extra-axial fluid collections are identified. Thereis mild cerebral volume loss with associated ex vacuo ventricular dilatation.1 The basilar cisterns are patent. No mass effect or midline shift is seen. The armijo-white matter differentiation is normal. There is minimal right scalp soft tissue swelling. There is a comminuted avulsion fracture of the left occipital condyle . Maxillofacial: The orbits appear normal. There is moderate mucosal thickening of theleft maxillary sinus. Otherwise the paranasal sinuses are clear. The hard palate, mandible, and temporomandibular joints appear normal. No acute facial bone fractures are identified. The mastoid air cells are clear.No soft tissue abnormality is identified. Endotracheal tube is partially visualized. There is mild periodontal disease with the mild periapical lucencies along the roots of the left maxillary molars. Cervical spine: There is straightening of the lordosis. There is redemonstration of a comminuted avulsion fracture of the left occipital condyle (series 4image 63 and series 6, images 36-38). Vertebral bodies are normal in height without evidence of acute fracture. The craniocervical junction isnormal. The intervertebral discs appear normal. No significant central canal stenosis is seen. The facets appear normal. The uncovertebral joints appear normal. No neural foraminal stenosis is seen. There is mild pulmonary contusion in the superior posterior aspect of right lung. Thoracic spine: The alignment is normal. Vertebral bodies are normal in height without evidence of acute fracture. The intervertebral discs appear normal. No central canal stenosis is seen. The facets appear normal. No neural foraminal stenosis is seen. Small right pleural effusion/hemothorax with adjacent compressive atelectasis, minimal left dependent subsegmental atelectasis are noted. The endotracheal tube terminates in the distal thoracic trachea. Lumbar spine: The alignment is maintained. Vertebral bodies are normal in heightwithout evidence of acute fracture. There is diffuse disc bulge at multiple levels. No central canal stenosis is seen. The facets appear normal.There is developmental lumbar spinal canal stenosis with superimposedmultilevel degenerative disc and joint disease. There is a hematoma around theright psoas muscle. Shattered right kidney with perirenal hematoma with significant mass effect on adjacent IVC is noted. IMPRESSION: 1.No acute intracranial hemorrhage, mass effect, or midline shift. 2.There is a comminuted avulsion fracture of the left occipital condyle. 3.No acute facial bone fractures identified. 4.No evidence of acute fracture in the cervical, thoracic, or lumbarspine. 5.Please refer to concurrent dedicated body report for findings in the chest, abdomen, pelvis. Dictated by Elvira Shi MD (resident in diagnostic radiology). This report was approved by Elvira Shi on 03/01/2021 10:53 AM . I, Dr. DANIELLE MACE have personally reviewed and interpreted this examination/study. This report was electronically signed by DANIELLE MACE on03/01/2021 10:53 AM . Shayne Schneider MD CT ORDERABLES * 4 Units (03/01/2021 12:48 AM CDT) Unit Description LR Whole BLood [facility] Unit ABO O [facility] Unit Rh NEG [facility] Product Number E0033 [facility] Donor # [id number] [facility] Unit Status transfused [facility] Product [facility] [id number] [facility] Blood Type Barcode 9500 [facility] Expiration Date [facility] Unit Description LR Whole BLood [facility] Unit ABO O [facility] Unit Rh POS [facility] Product Number E0033 [facility] Unit Donor # [id number] [facility] Unit Status transfused [facility] Product [facility] [id number] [facility] Blood Type [facility]arcode 5100 [facility]piration Date [facility] Unit Description LR Whole BLood [facility] Unit ABO O [facility] Unit POS [facility] Product Number E0033 [facility] Unit Donor # [id number] [facility] Unit Status transfused [facility] Product Code [id number] [facility] Blood Type Barcode 5100 [facility] Expiration Date [facility] Unit Description LR Whole BLood [facility] Unit ABO O [facility] Unit POS [facility] Product Number E0033 [facility] Unit Donor # [id number] [facility] Unit Status transfused [facility] Product Code [id number] [facility] Blood Type Barcode 5100 [facility] Expiration Date [facility] Blood Bank BLOOD SPECIMEN / Unknown 03/01/2021 1:43 AM CDT Shayne Schneider MD LAB - BLOOD B ANK ORDERABLES [facility] [address] [place] [address], [place] [phone] * URINE MICROSCOPIC ONLY (08/21/2019 5:27 PM JAVA PROGRAMMER) RBC UA 0-2 None Seen, 0-2, 3-5 # /hpf 08/21/2019 10:23 PM [facility] WBC UA 0-5 None Seen, 0-5 # /hpf 08/21/2019 10:23 PM [facility] Bacteria UA None Seen None Seen 08/21/2019 10:23 PM [facility] Squamous Epithelial Cells None Seen None Seen, 0-2, 3-5 /hpf 08/21/2019 10:23 PM [facility] Mucus UA 1+ /LPF 08/21/2019 10:23 PM [facility] Urine URINE SPECIMEN OBTAINED BY CLEAN CATCH PROCEDURE / Unknown Collection / Unknown 08/21/2019 5:27 PM JAVA PROGRAMMER 08/21/2019 10:06 PM JAVA PROGRAMMER Narrative [facility] - 08/21/2019 10:23 PM JAVA PROGRAMMER Luh Qiu MD LAB - URINALYSIS ORD ERABLES Performing Organization Address City/[facility]/ZIP Co de Phone Number [facility] [address] [place] [address] * SYPHILIS ANTIBODY CASCADING REFLEX (08/21/2019 5:28 AM JAVA PROGRAMMER) Treponema pallidum Antibody Non Reactive Non Reactive 08/21/2019 6:26 AM [facility] Comment: No Laboratory evidence of syphilis infection. Note: Circulating antibodies may be low or undetectable in early infection. If recent exposure is suspected, re-draw sample in 2-4 weeks and repeat testing. Blood BLOOD SPECIMEN / Unknown Lab Venipuncture / Unknown 08/21/2019 5:28 AM JAVA PROGRAMMER 08/21/2019 5:32 AM JAVA PROGRAMMER uLh Qiu MD LAB - SEROLOGY ORDER GURVINDER [facility] [address] [place] [address] * FOLATE (08/21/2019 5:28 AM JAVA PROGRAMMER) Folate 14.7 7.0 - 31.4 ng/mL 08/21/2019 6:27 AM [facility] Blood BLOOD SPECIMEN / Unknown Lab Venipuncture / Unknown 08/21/2019 5:28 AM JAVA PROGRAMMER 08/21/2019 5:32 AM JAVA PROGRAMMER Luh Qiu MD LAB - CHEMISTRY MANUEL ORTA Performing Organization Address [facility]/ZIP Co de Phone Number [facility] [address] [place] [address] * (ABNORMAL) VITAMIN B12 (08/21/2019 5:28 AM JAVA PROGRAMMER) Vitamin B12 883(H) 213 - 816 pg/mL 08/21/2019 6:27 AM JAVA PROGRAMMER [facility] Blood BLOOD SPECIMEN / Unknown Lab Venipuncture / Unknown 08/21/2019 5:28 AM JAVA PROGRAMMER 08/21/2019 5:32 AM JAVA PROGRAMMER Luh Qiu MD LAB - CHEMISTRY MANUEL ORTA Performing Organization Address [facility] Co de Phone Number [facility] [address] [place] [address] * TSH (08/21/2019 5:28 AM JAVA PROGRAMMER) TSH 2.7311 0.35 - 4.94 uIU/mL 08/21/2019 6:27 AM JAVA PROGRAMMER [facility] Blood BLOOD SPECIMEN / Unknown Lab Venipuncture / Unknown 08/21/2019 5:28 AM JAVA PROGRAMMER 08/21/2019 5:32 AM JAVA PROGRAMMER Luh Qiu MD LAB - CHEMISTRY MANUEL ORTA Performing Organization Address City/[facility]/ZIP Co de Phone Number [facility] [address] [place] [address] * (ABNORMAL) LIPID PROFILE (08/21/2019 5:28 AM JAVA PROGRAMMER) Cholesterol 211(H) <200 mg/dL 08/21/2019 6:01 AM [facility] Triglycerides 85 <150 mg/dL 08/21/2019 6:01 AM [facility] HDL Cholesterol 91 >40 mg/dL 9 6:01 AM [facility] LDL Calculated 103 <130 mg/dL 08/21/2019 6:01 AM [facility] VLDL Calculated 17 <=30 mg/dL 9 6:01 AM [facility] Chol HDL Ratio 2.3 <4.5 08/21/2019 6:01 AM [facility] LDL/HDL Ratio 1.1 <5.0 08/21/2019 6:01 AM [facility] Blood BLOOD SPECIMEN / Unknown Lab Venipuncture / Unknown 08/21/2019 5:28 AM JAVA PROGRAMMER 08/21/2019 5:32 AM [facility] Luh Qiu MD LAB - CHEMISTRY MANUEL ORTA [facility] Organization Address City/State/ZIP Co de Phone Number [facility] [address] [id number] Care Teams Jira Administrator Relationship Specialty Start Date End Date Mitchel Garibay DO PCP - General Family Medicine 03/13/19
--- OUTSIDE RECORDS SUMMARY | 2024-11-28 02:01 | XMS_ITS | Referral Summary ---
Author Organization [facility] Address [address] [place] [address] Care Team Providers Care Civil Designer Name Role Phone Mitchel Garibay Primary Care Provider [phone] Source Comments [facility],non-owned Affiliates and Associated Physician Practices is amultiple site organization consisting of ambulatory clinics and hospital sitesin [place], [place], [place] and [place]. This disclosure is being madepursuant to the Care Everywhere program and may not contain all information available regarding this patient. Last updated 18.[facility] Encounters Date Type Department Care Team Description 11/21/2024 7:50 AM QUENCHING CAR OPERATOR - 11/23/2024 10:52 AM [facility] Hospital Encounter [facility] 3 Transitional Care Unit [address] [place] [address] Gagandeep Boen, Clarita Oneil, Reynaldo Mott MD Emergency Medicine Discharge Disposition: Home or Self Care 11/21/2024 Travel 10/02/2024 4:37 AM QUENCHING CAR OPERATOR - 10/06/2024 10:32 AM [facility] Hospital Encounter [facility] 3E MED/ONC [address] [place] [address] Wei Fan DO Hasan, Seba, MD Chilappa, Madan M, MD Rafique, Salam, MD Patel, Paragkumar, MD Ibrahim, Saira, MD Hospitalist Discharge Disposition: Home or Self Care 10/02/2024 Travel from Last 3 Months Allergies Active Allergy Reactions Criticality Noted Date Comments Penicillins Unknown 03/01/2021 Diazepam Other 10/02/2024 Patient states he passed out Medications * Be aware that medications may not be up to date on this document. Alwaysverify current medications with the patient. Medication Sig Dispensed Refills Start Date End Date Status amitriptyline (Elavil) 50 MG tablet Take 1 (one) tablet by mouth at bedtime 90 tablet 08/11/2024 Active folic acid (Folvite) 1 MG tablet Take 1 (one) tablet by mouth once daily 60 tablet 08/11/2024 Active aluminum-magnesi um-simethicone (Maalox; Mylanta) 200-200-20 MG/5ML suspension Take 15 mL by mouth every 6 hours as needed for Heartburn 30 mL 08/11/2024 Active acetaminophen (Tylenol) 325 MG tablet Take 2 (two) tablets by mouth every 4 hours as needed Maximum allowable Acetaminophen amount = 4 Grams (4000 mg) / 24 hours. 60 tablet 08/11/2024 Active thiamine (Vitamin B-1) 100 MG tablet Take 1 (one) tablet by mouth once daily 60 tablet 08/12/2024 Active pantoprazole EC (Protonix) 40 MG tablet Take 1 (one) tablet by mouth daily before breakfast 30 tablet 08/12/2024 Active levETIRAcetam (Keppra) 500 MG tablet Take 1 (one) tablet by mouth 2 times daily 60 tablet 08/11/2024 Active busPIRone (Buspar) 15 MG tablet Take 1 (one) tablet by mouth 3 times daily 08/16/2024 Active hydrOXYzine HCl (Atarax) 50 MG tablet Take 1 (one) tablet by mouth 3 times daily as needed for Itching Active chlordiazePOXIDE (Librium) 25 MG capsule Take 1 (one) capsule by mouth 3 times daily as needed for Anxiety or Agitation 12 capsule 11/23/2024 Active naltrexone (Revia) 50 MG tablet Take 1 (one) tablet by mouth once daily 30 tablet 3 11/24/2024 Active Cholecalciferol (vitamin D3) 1.25 MG (23546 UT) capsule Take 1 (one) capsule by mouth every 7 days for 11 doses 11 capsule 11/30/2024 Active hydrOXYzine hcl (ATARAX) 50 MG tablet Take 1 (one) tablet by mouth 4 times daily as needed for Itching 5 Discontinue d(List Clean-Up) busPIRone (Buspar) 10 MG tabletIndication s:Anxiety Disorder Take 1.5 (one and one-half) tablets by mouth 3 times daily Reasons: Anxiety Disorder 30 tablet 08/11/2024 5 Discontinue d(List Clean-Up) chlordiazePOXIDE (Librium) 25 MG capsule Take 1 (one) capsule by mouth 2 times daily 10/11/2024 5 Discontinue d(Dose Adjustment) Active Problems Problem Noted Date Diagnosed Date [...] abuse with history of alcohol withdrawal 03/01/2021 Overview (03/01/2021): Drinks a fifth of vodka daily and has history of withdrawal. Hepatic steatosis 03/01/2021 Respiratory failure after trauma 03/01/2021 Acute blood loss anemia 03/01/2021 Acidosis 03/01/2021 Type III occipital condyle f racture, left side, initial encounter for closed fracture 03/01/2021 Liver laceration, grade III, without open wound into cavity 03/01/2021 Blood alcohol level of 240 mg/100 ml or more 03/2021 Attention deficit 11/24/2020 Overview (04/02/2021): Last Assessment & Plan: Patient reports ongoing issues with attention deficit. He is requesting specifically to start a stimulant medication. Does not meet criteria for true attention deficit disorder. I suspect that his attention deficit is a combination of complications from alcohol withdrawal/abuse, poorly controlled anxiety and likely some degree of depression associated with all of this. I am open to referring patient to neuro psychologist for more formal testing, but declined to prescribe a stimulant at this time. Patient seen very frustrated by this, will let me know if he is open to seeing neuropsychology Anxiety 11/24/2020 Overview (04/02/2021): Last Assessment & Plan: Long-term issues with anxiety, using alcohol as a coping mechanism for his poorly controlled anxiety, patient was previously on Zoloft and did have some improvement with this, is not currently open to this. Patient is using Ativan as needed for severe anxiety, ultimately this is a poor choice given his history of alcoholism but he is not currently open any other therapies. Follow-up in 6 weeks Alcohol withdrawal syndrome without complication 11/18/2020 Psychophysiological insomnia 09/15/2020 Overview (04/02/2021): Last Assessment & Plan: Likely multifactorial, does have some underlying anxiety. Patient is on low-dose sertraline, could certainly increase the dose of this but he would like to hold off on that for now. We discussed other options, he is open to trying trazodone, order was placed today. Group A streptococcal infection 09/01/2020 Overview (04/02/2021): Last Assessment & Plan: Left thumb, admitted to [facility] on 06 August, prolonged hospital stay requiring multiple surgeries for deep fascial infection. Patient is recovering well, multiple cultures have been negative since his original positive wound culture. CBC has been down trending with most recent white blood cell count at 14. His left thumb is well healing with a formed a scab, his left ventral wrist and hand has well-healed and is well approximated. He has scheduled follow-up with his hand surgeon on . Will finish his course of antibiotics on . Continue with current therapy and follow up with Hand surgery is scheduled, do recommend a course of occupational therapy but this is at the discretion of his surgeon. Also plans to follow-up with them regarding pain control. I recommend he continue with scheduled NSAIDs and only use the oxycodone as needed. He is to elevate his arm as much as possible, may use ice to help with pain as well. He verbalized understanding. We discussed that long-term the return of function in his hand will be complicated and require several hours of therapy. He verbalized understanding Severe alcohol withdrawal delirium 09/01/2020 Overview (04/02/2021): Last Assessment & Plan: During recent hospitalization patient went into severe alcohol withdrawal with visual and auditory hallucinations, he did not end up having seizures but ultimately he was intubated and on multiple sedative medications, was on a ventilator for approximately 10 days due to his alcohol withdrawal. He is currently sober, has been sober for nearly 30 days. Discussed with him the importance of complete avoidance of alcohol as it is likely to cause him to begin to use heavily again which would set him up for an even worse withdrawal. He verbalized understanding. I offered him community resources to help him set up outpatient addiction counseling, he declined Severe alcohol dependence in early remission 04/2020 Overview (04/02/2021): Last Assessment & Plan: Remains sober, continues to do well. Patient was given continued encouragement, I do recommend that he consider outpatient therapy program or AA, he will consider this but does not want to do so until after his left hand issues have resolved. Pain of left upper extremity 08/06/2020 Overview (04/02/2021): Last Assessment & Plan: Continues to improve day by day, patient was encouraged to continue with Tylenol, NSAIDs as needed. His most recent lab work looks unremarkable. Follow-up with ortho as scheduled. Pain in testicle 08/06/2020 Overview (04/02/2021): Last Assessment & Plan: Patient instructed to go to ER for further evaluation and management of pain of left upper extremity and cellulitis of finger of left hand and to address concerns regarding testicular pain, not assessed at time of visit. Groin swelling 08/06/2020 Overview (04/02/2021): Last Assessment & Plan: Patient instructed to go to ER for further evaluation and management of pain of left upper extremity and cellulitis of finger of left hand and to address concerns regarding groin swelling, not assessed at time of visit. Cellulitis of finger of left hand 08/06/2020 Overview (04/02/2021): Last Assessment & Plan: Markedly improved, patient does have a scab on the palmar surface of his left thumb, but overall continues to improve day by day, swelling is markedly decreased. Patient continues to have increasing range of motion. Continue to work with occupational therapy as scheduled. Follow-up with ortho. 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 Overview (04/02/2021): Last Assessment & Plan: Continues to improve day by day, nearly resolved at this time after discontinuation of chronic alcohol use. Patient was given return precautions, continue with alcohol cessation Generalized-onset seizures 01/15/2020 Overview (04/02/2021): Last Assessment & Plan: Alcohol withdrawal seizure, is on a prolonged Librium taper and seems to be doing quite well, no recurrence of seizures since discharge. Continue with current therapy. Patient given strict return precautions. Alcohol dependence with withdrawal with complica tion 01/15/2020 Overview (04/02/2021): Last Assessment & Plan: Chronic issue, with frequent complications including anxiety and known severe withdrawals with previous history of seizures. Recently admitted to [facility] for active withdrawals. I recommend patient see intensive outpatient program, he is not open to this currently. Follow-up as needed BMI 24.0-24.9, adult 09/04/2019 Cannabis use disorder, moderate, dependence 07/27 Panic disorder 08/21/2019 Alcohol use disorder, severe, dependence 019 Closed bimalleolar fracture of right ankle 07/26 Overview (04/02/2021): Added automatically from request for surgery [id number] Last Assessment & Plan: End of June fractured R ankle after falling down stairs. Did not have surgery. Went to [place] for friend's wedding instead. Was in a hard cast and now in a boot. Using crutches. Is non weight bearing for at least four more weeks. Follow up with Dr. Tony as scheduled. Acute right ankle pain 07/26/2019 Overview (04/02/2021): Added automatically from request for surgery [id number] Marijuana use, continuous 01/22/2019 Overview (04/02/2021): Last Assessment & Plan: Patient is a daily marijuana smoker, does not desire to discontinue or decrease use at this time. Discussed concerns regarding inhalation of any burning product, recommend discontinuation. Patient verbalized understanding and plans to continue. Current smoker 01/22/2019 Overview (04/02/2021): Last Assessment & Plan: Continues to smoke, discussed risks of continued smoking as well as the benefits of cessation, he would like to hold off on smoking cessation at this time due to his current issues with alcoholism. Alcohol abuse 01/22/2019 Overview (04/02/2021): Last Assessment & Plan: Patient can the intermittent alcohol use, still drinking more than 4 drinks in some episodes, discussed the importance of seeking help regarding complete cessation, he does not want to pursue this currently. Patient recently seen at [facility], admitted overnight for alcohol withdrawal. Given refill of Ativan to use as needed for severe withdrawal symptoms but strict return precautions given. Generalized anxiety disorder 01/22/2019 Overview (04/02/2021): Last Assessment & Plan: Overall feels that this is much better controlled, since stopping chronic alcohol use he feels his anxiety and depression or much better controlled. He feels that he is sleeping much better. Continues on the Zoloft but he plans to self discontinued this in the coming weeks. Patient given strict return precautions. Follow-up should symptoms recur. Closed displaced intertrochanteric fracture of r ight femur Spleen laceration extending into parenchyma Resolved Problems Problem Noted Date Diagnosed Date Resolved Date Elevated troponin 08/09/2024 08/10/2024 Elevated LFTs 08/09/2024 08/10/2024 Immunizations Name Administration Dates Next Due INFLUENZA VACCINE, TRIV. (FL UZONE; FLULAVAL; FLUARIX; AFLURIA TRIVALENT; 6MO+), 0.5 ML (IIV3) 10/06/2024(Deferred: Already administered this Flu season) TDAP (7yrs+) 03/01/2021 Social History Tobacco Use Types Packs/Day Years [...] and heating? Not hard at all 11/23/2024 [facility] [place] of Occupat ional Health - Occupational Stress [...] any time in the past 12 m [facility], were you homeless or living in a usp (including now)? No 11/23/2024 Sex and Gender Information Value Date Recorded Sex Assigned at Not on file Gender Identity Male 06/20/2021 9:48 PM CDT Sexual Orientation Not on file Last Filed Vital Signs Vital Sign Reading Time Taken Comments Blood Pressure 139/95 11/23/2024 8:02 AM QUENCHING CAR OPERATOR Pulse 86 11/23/2024 8:02 AM QUENCHING CAR OPERATOR Temperature 36.4 C (97.6 F) 11/23/2024 8:02 AM QUENCHING CAR OPERATOR Respiratory Rate 17 11/23/2024 8:02 AM QUENCHING CAR OPERATOR Oxygen Saturation 99% 11/23/2024 8:02 AM QUENCHING CAR OPERATOR Inhaled Oxygen Concentration 30% 03/07/2021 3 :14 PM CDT Weight 92.4 kg (203 lb 9.6 oz) 11/21/2024 12:20 PM QUENCHING CAR OPERATOR Height 188 cm (6' 2 ) 11/21/2024 12:20 PM QUENCHING CAR OPERATOR Body Mass Index 26.14 11/21/2024 12:20 PM QUENCHING CAR OPERATOR Functional Status Functional Status Response Date of Assess ment Is person deaf or have serious hearing difficult y? No 11/23/2024 Is person blind or have serious difficulty seein g? No 11/23/2024 Does person have serious dif ficulty walking/climbing stairs? No 11/23/2024 Does person have difficulty dressing/bathing? No 11/23/2024 Does person have difficulty doing errands alone? No 11/23/2024 Cognitive Status Response Date of Assessm ent Does person have difficulty concentrating/remembering/making decisions? No 11/23/2024 Plan of Treatment Not on file Medical Devices Implanted Type Area Director Of Integrated Marketing Device Identifier Shelf Expiration Date Model / Serial / Lot Nail Im 11mm 180mm Affixus Hip Fem Goal Implanted:Qty: 1 on 03/08/2021 by Madhav Elizabeth DO at [facility] Right: Femur [employer] 10/28/2030 [id number] / / [id number] Screw 10.5mm 95mm 6.5mm Lag Slf-Tap Rvrs Implanted:Qty: 1 on 03/08/2021 by Madhav Elizabeth DO at [facility] Right: Femur [employer] 08/14/2028 [id number] / / [id number] Screw 5mm 38mm 3.5mm Hex Drvr Sckt Hip Implanted:Qty: 1 on 03/08/2021 by Madhav Elizabeth DO at [facility] Right: Femur [employer] 04/29/2030 [id number] / / [id number] Explanted Type Area Director Of Integrated Marketing Device Identifier Shelf Expiration Date Model / Serial / Lot Wire K 2mm 350mm 1 End Troc Pnt Thrd Ss Explanted:Qty: 2 on 03/08/2021 by Madhav Elizabeth, DO at [facility] Right: Femur [employer] 07/29/2029 [id number] / / [id number] Procedures Procedure Name Priority Date/Time Associated Diagnosis Comments CARDIAC RHYTHM STRIP ORDER 11/25/2024 5:00 PM QUENCHING CAR OPERATOR RENAL FUNCTION PANEL AM Draw 11/23/2024 4:44 AM QUENCHING CAR OPERATOR LACTIC ACID BLOOD AM Draw 11/23/2024 4:4 4 AM QUENCHING CAR OPERATOR EKG 12-LEAD Routine 11/22/2024 1:57 PM QUENCHING CAR OPERATOR History of seizure due to alcohol withdrawal LACTIC ACID BLOOD STAT 11/22/2024 10: 19 AM QUENCHING CAR OPERATOR VITAMIN D 25-HYDROXY STAT 11/22/2024 2:48 AM QUENCHING CAR OPERATOR COMPREHENSIVE METABOLIC PANEL AM Draw 11/22/2024 2:48 AM QUENCHING CAR OPERATOR LACTIC ACID BLOOD Timed 11/21/2024 6:4 5 PM QUENCHING CAR OPERATOR LACTIC ACID BLOOD STAT 11/21/2024 2:4 5 PM QUENCHING CAR OPERATOR Acidosis URINE DRUG SCREEN IMMUNOASSAY STAT 11/21/2024 1:53 PM QUENCHING CAR OPERATOR URINALYSIS REFLEX TO MICROSCOPIC NO CULTURE STAT 11/21/2024 1:53 PM QUENCHING CAR OPERATOR LEVETIRACETAM LEVEL STAT 11/21/2024 1 1:29 AM QUENCHING CAR OPERATOR 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) PHOSPHORUS BLOOD STAT 11/21/2024 11:2 9 AM QUENCHING CAR OPERATOR Hypophosphatemia BASIC METABOLIC PANEL (CALCIUM TOTAL) STAT 11/21/2024 11:29 AM QUENCHING CAR OPERATOR 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) Hyperkalemia HYDROXYBUTYRATE BETA STAT 11/21/2024 11:29 AM QUENCHING CAR OPERATOR LACTIC ACID BLOOD STAT 11/21/2024 11: 29 AM QUENCHING CAR OPERATOR SARS-COV-2 (COVID-19) FLU A/B RSV PCR RAPID STAT 11/21/2024 11:29 AM QUENCHING CAR OPERATOR XR CHEST 1VW PORTABLE STAT 11/21/2024 10:38 AM QUENCHING CAR OPERATOR 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) SLIDE SCAN HEMATOLOGY STAT 11/21/2024 8:50 AM QUENCHING CAR OPERATOR ALCOHOL ETHYL BLOOD STAT 11/21/2024 8 :50 AM QUENCHING CAR OPERATOR PHOSPHORUS BLOOD STAT 11/21/2024 8:50 AM QUENCHING CAR OPERATOR MAGNESIUM BLOOD STAT 11/21/2024 8:50 AM QUENCHING CAR OPERATOR LIPASE BLOOD STAT 11/21/2024 8:50 AM QUENCHING CAR OPERATOR COMPREHENSIVE METABOLIC PANEL STAT 11/21/2024 8:50 AM QUENCHING CAR OPERATOR CBC W AUTO DIFFERENTIAL STAT 11/21/19 8:50 AM QUENCHING CAR OPERATOR CARDIAC RHYTHM STRIP ORDER 10/07/2024 6:55 PM QUENCHING CAR OPERATOR URINALYSIS REFLEX TO MICROSCOPIC NO CULTURE STAT 10/05/2024 9:20 PM QUENCHING CAR OPERATOR GLUCOSE - POINT OF CARE Routine 10/04/19 12:57 PM QUENCHING CAR OPERATOR COMPREHENSIVE METABOLIC PANEL AM Draw 10/04/2024 3:26 AM QUENCHING CAR OPERATOR CBC W AUTO DIFFERENTIAL AM Draw 10/04/19 3:26 AM QUENCHING CAR OPERATOR COMPREHENSIVE METABOLIC PANEL AM Draw 10/03/2024 6:06 AM QUENCHING CAR OPERATOR MAGNESIUM BLOOD AM Draw 10/03/2024 2:59 AM QUENCHING CAR OPERATOR CBC W/O DIFFERENTIAL AM Draw 10/03/2024 2:59 AM QUENCHING CAR OPERATOR URINE DRUG SCREEN IMMUNOASSAY Routine 10/03/2024 12:08 AM QUENCHING CAR OPERATOR TROPONIN-I HIGH SENSITIVE REFLEX 1HOUR Timed 10/02/2024 12:31 PM QUENCHING CAR OPERATOR TROPONIN-I HIGH SENSITIVE BASELINE + 1HR STAT 10/02/2024 8:23 AM QUENCHING CAR OPERATOR LEVETIRACETAM LEVEL STAT 10/02/2024 6 :00 AM QUENCHING CAR OPERATOR LIPASE BLOOD Add on 10/02/2024 5:04 AM QUENCHING CAR OPERATOR MAGNESIUM BLOOD STAT 10/02/2024 5:04 AM QUENCHING CAR OPERATOR COMPREHENSIVE METABOLIC PANEL STAT 10/02/2024 5:04 AM QUENCHING CAR OPERATOR CBC W AUTO DIFFERENTIAL STAT 10/02/19 25 5:03 AM QUENCHING CAR OPERATOR ED CRITICAL CARE Routine 10/02/2024 4:48 AM QUENCHING CAR OPERATOR from Last 3 Months Results * CARDIAC RHYTHM STRIP ORDER (11/25/2024 5:00 PM QUENCHING CAR OPERATOR) Only the most recent of2 resultswithin the time period is included. Narrative 11/25/2024 5:00 PM QUENCHING CAR OPERATOR Ordered by an unspecified provider. Scanned Document CARDIAC SERVICES ORD ERABLES * (ABNORMAL) RENAL FUNCTION PANEL (11/23/2024 4:44 AM QUENCHING CAR OPERATOR) [facility] Glucose 86 70 - 99 mg/dL 11/23/2024 5:42 AM QUENCHING CAR OPERATOR [facility] Sodium 138 136 - 145 mmol/L 11/23/2024 5:[address] [facility] Potassium 3.6 3.5 - 5.1 mmol/L 11/23/2024 5:[address] [facility] Chloride 108(H) 98 - 107 mmol/L 11/23/2024 5:[address] [facility] CO2 22 22 - 29 mmol/L 11/23/2024 5:[address] [facility] Calcium 8.6 8.4 - 10.4 mg/dL 11/23/2024 5:[address] [facility] Anion Gap 8 6 - 16 mmol/L 11/23/2024 5:[address] [facility] BUN 6 5.3 - 18.7 mg/dL 11/23/2024 5:[address] [facility] Creatinine 0.74 0.72 - 1.25 mg/dL 11/23/2024 5:[address] [facility] Albumin 3.4 3.4 - 5.0 gm/dL 11/23/2024 5:[address] [facility] Phosphorus 3.4 2.5 - 4.5 mg/dL 11/23/2024 5:[address] [facility] eGFR by CKD-EPI >90 >=90 mL/min/1.7 3 m2 11/23/2024 5:[address] [facility] Blood BLOOD SPECIMEN / Unknown Lab Venipuncture / Unknown 11/23/2024 4:44 AM QUENCHING CAR OPERATOR 11/23/2024 5:09 AM [facility] Reynaldo Almazan MD LAB - CHEMISTRY [facility] Organization Address City/State/ZIP Co de Phone Number [facility] [address] [place] [address] * LACTIC ACID BLOOD (11/23/2024 4:44 AM [facility]) Only the most recent of5 resultswithin the time period is included. Lactic Acid 0.925 <=2 mmol/L 11/23/2024 5:[address] [facility] Blood BLOOD SPECIMEN / Unknown Lab Venipuncture / Unknown 11/23/2024 4:44 AM QUENCHING CAR OPERATOR 11/23/2024 5:08 AM QUENCHING CAR OPERATOR Reynaldo Almazan MD LAB - CHEMISTRY [place] Performing Organization Address City/[facility]/ZIP Co de Phone Number [facility] [address] [place] [id number] * EKG 12-LEAD (11/22/2024 1:57 PM QUENCHING CAR OPERATOR) Ventricular Rate 79 BPM [facility] Atrial Rate 79 BPM [facility] P-R Interval 150 ms [facility] QRS Duration ms 86 ms [facility] Q-T Interval ms 370 ms [facility] QTC Calculation (Bezet) 424 ms [facility] Calculated P [place] 56 degrees [facility] MUSE Calculated R [place] 35 degrees [facility] MUSE Calculated T [place] 24 degrees [facility] MUSE Interpretation EKG NORMAL SINUS RHYTHM WITH SINUS ARRHYTHMIA NORMAL ECG Confirmed by DO COBURN STEPHANIE ([id number]) on 11/22/2024 6:29:46 PM [facility] M[facility] 11/22/2024 1:57 PM QUENCHING CAR OPERATOR 11/22/2024 6:29 PM QUENCHING CAR OPERATOR Reynaldo Almazan MD ECG ORDERABLES Performing Organization Address City/[facility] Co de Phone Number [facility] * (ABNORMAL) VITAMIN D 25-HYDROXY (11/22/2024 2:48 AM QUENCHING CAR OPERATOR) Vitamin D, 25 Hydroxy 22.2(L) 30 - 80 ng/mL 11/22/2024 10:39 AM QUENCHING CAR OPERATOR [facility] Blood BLOOD SPECIMEN / Unknown Lab Venipuncture / Unknown 11/22/2024 2:48 AM QUENCHING CAR OPERATOR 11/22/2024 3:40 AM QUENCHING CAR OPERATOR Narrative [facility] - 11/22/2024 10:39 AM QUENCHING CAR OPERATOR Vitamin D Status: Deficiency <20 ng/mL Insufficiency 20-30 ng/mL Sufficiency 30-100 ng/mL Toxicity >100 ng/mL Reynaldo Almazan MD LAB - CHEMISTRY [place] Performing Organization Address City/[facility]/ZIP Co de Phone Number [facility] [address] [place] [address] * COMPREHENSIVE METABOLIC PANEL (11/22/2024 2:48 AM [facility]) Only the most recent of5 resultswithin the time period is included. [facility] Glucose 90 70 - 99 mg/dL 11/22/2024 4:[address] [facility] Sodium 136 136 - 145 mmol/L 11/22/2024 4:[address] [facility] Potassium 3.8 3.5 - 5.1 mmol/L 11/22/2024 4:[address] [facility] Chloride 102 98 - 107 mmol/L 11/22/2024 4:[address] [facility] CO2 23 22 - 29 mmol/L 11/22/2024 4:[address] [facility] Calcium 9.0 8.4 - 10.4 mg/dL 11/22/2024 4:[address] [facility] Anion Gap 11 6 - 16 mmol/L 11/22/2024 4:[address] [facility] BUN 6 5.3 - 18.7 mg/dL 11/22/2024 4:[address] [facility] Creatinine 0.80 0.72 - 1.25 mg/dL 11/22/2024 4:[address] [facility] Alkaline Phosphatase 53 40 - 150 U/L 11/22/2024 4:[address] [facility] ALT 32 0 - 55 U/L 11/22/2024 4:[address] [facility] AST 28 5 - 34 U/L 11/22/2024 4:[address] [facility] Protein Total 7.2 6.4 - 8.3 gm/dL 11/22/2024 4:[address] [facility] Albumin 3.8 3.4 - 5.0 gm/dL 11/22/2024 4:[address] [facility] Bilirubin Total 1.2 0.2 - 1.2 mg/dL 11/22/2024 4:[address] [facility] eGFR by CKD-EPI >90 >=90 mL/min/1.7 3 m2 11/22/2024 4:[address] [facility] Blood BLOOD SPECIMEN / Unknown Lab Venipuncture / Unknown 11/22/2024 2:48 AM QUENCHING CAR OPERATOR 11/22/2024 3:40 AM QUENCHING CAR OPERATOR Reynaldo Almazan MD LAB - CHEMISTRY MANUEL Garcia Organization Address City/State/ZIP Co de Phone Number [facility] [address] [place] [address] * (ABNORMAL) URINALYSIS REFLEX TO MICROSCOPIC NO CULTURE (11/21/2024 1:53 PM QUENCHING CAR OPERATOR) Only the most recent of2 resultswithin the time period is included. Color UA Yellow Yellow, Straw 11/21/2024 2:[address] [facility] Clarity UA Clear Clear 11/21/2024 2:[address] [facility] Glucose UA Normal Normal 11/21/2024 2:[address] [facility] Bilirubin UA Negative Negative 11/21/2024 2:[address] [facility] Ketone UA 1+(A) Negative 11/21/2024 2:[address] [facility] Specific [place] UA 1.018 1.005 - 1.030 11/21/2024 2:[address] [facility] Blood UA Negative Negative 11/21/2024 2:[address] [facility] pH UA 6.5 5.0 - 9.0 pH 11/21/2024 2:[address] [facility] Protein UA 2+(A) Negative 11/21/2024 2:[address] [facility] Urobilinogen UA Normal Normal mg/dL 025 2:[address] [facility] Nitrite UA Negative Negative 11/21/2024 2:[address] [facility] Leukocyte UA Negative Negative 11/21/2024 2:[address] [facility] RBC UA 3-5 0 - 5 # /hpf 11/21/2024 2:[address] [facility] WBC UA 0-5 0 - 5 # /hpf 11/21/2024 2:[address] [facility] Bacteria UA None Seen None Seen 11/21/2024 2:[address] [facility] Squamous Epithelial Cells None Seen 0 - 5 /hpf 11/21/2024 2:[address] [facility] Urine URINE SPECIMEN OBTAINED BY CLEAN CATCH PROCEDURE / Unknown Collection / Unknown 11/21/2024 1:53 PM QUENCHING CAR OPERATOR 11/21/2024 2:10 PM QUENCHING CAR OPERATOR Narrative [facility] - 11/21/2024 2:17 PM QUENCHING CAR OPERATOR Gagandeep Bone DO LAB - URINALYSIS ORD ERABLES [facility] [address] [place] [address] * (ABNORMAL) URINE DRUG SCREEN IMMUNOASSAY (11/21/2024 1:53 PM QUENCHING CAR OPERATOR) Only the most recent of2 resultswithin the time period is included. [facility] Amphetamines Screen Urine Not detected Not detected 11/21/2024 3:[address] [facility] Barbiturates Screen Urine Detected(A) Not detected 11/21/2024 3:[address] [facility] Benzodiazepines Screen Urine Detected(A) Not detected 11/21/2024 3:[address] [facility] Cannabinoids Screen Urine Detected(A) Not detected 11/21/2024 3:[address] [facility] Cocaine Screen Urine Not detected Not detected 11/21/2024 3:[address] [facility] Fentanyl Urine Not detected Not detected 11/21/2024 3:[address] [facility] Methadone Screen Urine Not detected Not detected 11/21/2024 3:[address] [facility] Opiate Screen Urine Not detected Not detected 11/21/2024 3:[address] [facility] Phencyclidine Screen Urine Not detected Not detected 11/21/2024 3:[address] [facility] Urine URINE / Unknown Collection / Unknown 11/21/2024 1:53 PM QUENCHING CAR OPERATOR 11/21/2024 2:10 PM QUENCHING CAR OPERATOR Narrative [facility] - 11/21/2024 3:14 PM QUENCHING CAR OPERATOR This drug screen is designed for MEDICAL [...] URINE CHEMISTR Y ORDERABLES Performing Organization Address [facility] Co de Phone Number [facility] [address] [place] [address] * SARS-COV-2 (COVID-19) FLU A/B RSV PCR RAPID (11/21/2024 11:29 AM QUENCHING CAR OPERATOR) Pathologist [facility] COVID-19 PCR Not detected Not detected 11/21/19 12:07 PM QUENCHING CAR OPERATOR [facility] Influenza A PCR Not detected Not detected 11/21/2024 12:07 PM QUENCHING CAR OPERATOR [facility] Influenza B PCR Not detected Not detected 11/21/2024 12:[address] [facility] RSV PCR Not detected Not detected 11/21/2024 12:07 PM QUENCHING CAR OPERATOR [facility] Microbiology SPECIMEN FROM NASOPHARYNGEAL STRUCTURE / Unknown Collection / Unknown 11/21/2024 11:29 AM QUENCHING CAR OPERATOR 11/21/2024 11:29 AM QUENCHING CAR OPERATOR Narrative [facility] - 11/21/2024 12:07 PM QUENCHING CAR OPERATOR This nucleic acid amplification assay has been [...] - MICROBIOLOGY O RDERABLES Performing Organization Address City/[facility]/ZIP Co de Phone Number [facility] [address] [place], [place] [phone] * LEVETIRACETAM LEVEL (11/21/2024 11:29 AM QUENCHING CAR OPERATOR) Only the most recent of2 resultswithin the time period is included. Pathologist [facility] Levetiracetam 24.63 10 - 40 ug/mL 11/21/2024 11:55 AM QUENCHING CAR OPERATOR [facility] Blood BLOOD SPECIMEN / Unknown Venipuncture / Unknown 11/21/2024 11:29 AM QUENCHING CAR OPERATOR 11/21/2024 11:29 AM QUENCHING CAR OPERATOR Theresa Espinoza TERRITORY ACCOUNT EXECUTIVE-SWIM COACH LAB - THERAP EUTIC DRUG MONITORING ORDERABLES Performing Organization Address [facility]/ZIP Co de Phone Number [facility] [address] [place] [phone] * HYDROXYBUTYRATE BETA (11/21/2024 11:29 AM QUENCHING CAR OPERATOR) Beta-Hydroxybu tyrate <0.50 <0.50 mmol/L 11/21/2024 11:[address] [facility] Blood BLOOD SPECIMEN / Unknown Venipuncture / Unknown 11/21/2024 11:29 AM QUENCHING CAR OPERATOR 11/21/2024 11:29 AM QUENCHING CAR OPERATOR Narrative [facility] - 11/21/2024 11:45 AM QUENCHING CAR OPERATOR Results >1.5 mmol/L may be indicative of diabetic ketoacidosis. Use in conjunction with Serum Glucose levels. Aleta Vieira MD LAB - CHEMISTRY MANUEL ORAT Performing Organization Address [facility] Co de Phone Number [facility] [address] [place] [phone] * (ABNORMAL) BASIC METABOLIC PANEL (CALCIUM TOTAL) (11/21/2024 11:29 AM QUENCHING CAR OPERATOR) Glucose 113(H) 70 - 99 mg/dL 11/21/2024 11:[address] [facility] Sodium 137 136 - 145 mmol/L 11/21/2024 11:[address] [facility] Potassium 3.7 3.5 - 5.1 mmol/L 11/21/2024 11:[address] [facility] Chloride 102 98 - 107 mmol/L 11/21/2024 11:[address] [facility] CO2 18(L) 22 - 29 mmol/L 11/21/2024 11:[address] [facility] Calcium 9.3 8.4 - 10.4 mg/dL 11/21/2024 11:[address] [facility] Anion Gap 17(H) 6 - 16 mmol/L 11/21/2024 11:[address] [facility] BUN 10 5.3 - 18.7 mg/dL 11/21/2024 11:[address] [facility] Creatinine 0.93 0.72 - 1.25 mg/dL 11/21/2024 11:[address] [facility] eGFR by CKD-EPI >90 >=90 mL/min/1.7 3 m2 11/21/2024 11:[address] [facility] Blood BLOOD SPECIMEN / Unknown Venipuncture / Unknown 11/21/2024 11:29 AM QUENCHING CAR OPERATOR 11/21/2024 11:29 AM QUENCHING CAR OPERATOR Theresa Espinoza TERRITORY ACCOUNT EXECUTIVE-SWIM COACH LAB - CHEMIS TRY ORDERABLES Performing Organization Address [facility] Co de Phone Number [facility] [address] [place] [phone] * PHOSPHORUS BLOOD (11/21/2024 11:29 AM QUENCHING CAR OPERATOR) Only the most recent of2 resultswithin the time period is included. Phosphorus 3.7 2.5 - 4.5 mg/dL 11/21/2024 11:[address] [facility] Blood BLOOD SPECIMEN / Unknown Venipuncture / Unknown 11/21/2024 11:29 AM QUENCHING CAR OPERATOR 11/21/2024 11:29 AM QUENCHING CAR OPERATOR Theresa Espinoza TERRITORY ACCOUNT EXECUTIVE-SWIM COACH LAB - CHEMIS TRY ORDERABLES Performing Organization Address City/[facility]/ZIP Co de Phone Number [facility] [address] [place] [phone] * XR Chest 1Vw Portable (11/21/2024 10:38 AM QUENCHING CAR OPERATOR) Anatomical Region Laterality Modality Chest Radiographic Ashley ging 11/21/2024 10:4 2 AM QUENCHING CAR OPERATOR Narrative 11/21/2024 10:42 AM QUENCHING CAR OPERATOR PROCEDURE: XR CHEST 1VW PORTABLE DATE/TIME OF [...] * SLIDE SCAN HEMATOLOGY (11/21/2024 8:50 AM QUENCHING CAR OPERATOR) Pathologist [facility] RBC Morphology NORMAL 11/21/2024 10:15 AM QUENCHING CAR OPERATOR [facility] Blood BLOOD SPECIMEN / Unknown Venipuncture / Unknown 11/21/2024 8:50 AM QUENCHING CAR OPERATOR 11/21/2024 8:51 AM QUENCHING CAR OPERATOR Gagandeep Bone DO LAB - HEMATOLOGY ORD ERABLES Performing Organization Address City/State/[facility] Co de Phone Number [facility] [address] [place] [address] * (ABNORMAL) CBC W AUTO DIFFERENTIAL (11/21/2024 8:50 AM QUENCHING CAR OPERATOR) Only the most recent of3 resultswithin the time period is included. Pathologist [facility] WBC 10.1 4.0 - 10.7 x10E9/L 11/21/2024 10:15 AM QUENCHING CAR OPERATOR [facility] RBC Count 5.62 4.30 - 5.80 x10E12/L 11/21/2024 10:15 AM QUENCHING CAR OPERATOR [facility] Hemoglobin 17.4 13.3 - 17.5 g/dL 11/21/2024 10:[address] [facility] Hematocrit 47.1 38.7 - 51.1 % 11/21/2024 10:[address] [facility] MCV 83.8 80.0 - 98.0 fL 11/21/2024 10:[address] [facility] MCH 31.0 26.7 - 33.6 pg 11/21/2024 10:[address] [facility] MCHC 36.9(H) 31.7 - 36.3 g/dL 11/21/2024 10:[address] [facility] RDW-CV 12.2 11.3 - 14.8 % 11/21/2024 10:[address] [facility] Platelet Count 311 150 - 420 x10E9/L 11/21/2024 10:[address] [facility] MPV 9.8 7.8 - 11.4 fL 11/21/2024 10:[address] [facility] Neutrophil % 71.9 41.0 - 74.0 % 11/21/2024 10:[address] [facility] Lymphocyte % 23.5 17.0 - 47.0 % 11/21/2024 10:[address] [facility] Monocyte % 3.5 3.0 - 11.0 % 11/21/2024 10:[address] [facility] Eosinophil % 0.2 0.0 - 7.0 % 11/21/2024 10:[address] [facility] Basophil % 0.6 0.0 - 1.6 % 11/21/2024 10:[address] [facility] Immature Granulocytes % 0.3 0.0 - 1.0 % 11/21/2024 10:[address] [facility] Neutrophil Absolute 7.24 1.60 - 7.50 x10E9/L 11/21/2024 10:[address] [facility] Lymphocyte Absolute 2.37 1.00 - 4.40 x10E9/L 11/21/2024 10:[address] [facility] Monocyte Absolute 0.35 0.15 - 1.00 x10E9/L 11/21/2024 10:[address] [facility] Eosinophil Absolute 0.02 0.00 - 0.60 x10E9/L 11/21/2024 10:15 AM QUENCHING CAR OPERATOR [facility] Basophil Absolute 0.06 0.00 - 0.13 x10E9/L 11/21/2024 10:15 AM QUENCHING CAR OPERATOR [facility] Blood BLOOD SPECIMEN / Unknown Venipuncture / Unknown 11/21/2024 8:50 AM QUENCHING CAR OPERATOR 11/21/2024 8:51 AM QUENCHING CAR OPERATOR Gagandeep Lizzie Smitha DO LAB - HEMATOLOGY ORD ERABLES Performing Organization Address [facility]/ZIP Co de Phone Number [facility] [address] [place] [phone] * MAGNESIUM BLOOD (11/21/2024 8:50 AM QUENCHING CAR OPERATOR) Only the most recent of3 resultswithin the time period is included. Magnesium 1.8 1.6 - 2.6 mg/dL 11/21/2024 9:18 AM QUENCHING CAR OPERATOR [facility] Blood BLOOD SPECIMEN / Unknown Venipuncture / Unknown 11/21/2024 8:50 AM QUENCHING CAR OPERATOR 11/21/2024 8:51 AM QUENCHING CAR OPERATOR Gagandeep Bone DO LAB - CHEMISTRY ORDE RABLUIS A Performing Organization Address [facility] de Phone Number [facility] [address] [place], [place] [phone] * LIPASE BLOOD (11/21/2024 8:50 AM QUENCHING CAR OPERATOR) Only the most recent of2 resultswithin the time period is included. Lipase 25 <60 U/L 11/21/2024 9:12 AM QUENCHING CAR OPERATOR [facility] Blood BLOOD SPECIMEN / Unknown Venipuncture / Unknown 11/21/2024 8:50 AM QUENCHING CAR OPERATOR 11/21/2024 8:51 AM QUENCHING CAR OPERATOR Gagandeep Bone DO LAB - CHEMISTRY ORDE RABLUIS A Performing Organization Address [facility] Co de Phone Number [facility] [address] [place] [phone] * (ABNORMAL) ALCOHOL ETHYL BLOOD (11/21/2024 8:50 AM QUENCHING CAR OPERATOR) Ethanol 77.0(H) <10 mg/dL 11/21/2024 9:[address] [facility] Ethanol Calculated 0.077 <=0.100 gm/dL 11/21/2024 9:[address] [facility] Blood BLOOD SPECIMEN / Unknown Venipuncture / Unknown 11/21/2024 8:50 AM QUENCHING CAR OPERATOR 11/21/2024 8:51 AM QUENCHING CAR OPERATOR Narrative [facility] - 11/21/2024 9:18 AM [facility] Ethanol Interp <10: None Detected Depression of [...] purposes. Gagandeep Bone DO LAB - CHEMISTRY MANUEL ORTA Performing Organization Address City/[facility]/ZIP Co de Phone Number [facility] [address] [place], [place] [phone] * GLUCOSE - POINT OF CARE (10/04/2024 12:57 PM QUENCHING CAR OPERATOR) [facility] Glucose WB/POC 83 70 - 99 mg/dL 10/04/2024 1:[address] [facility] Specimen Type Cap Fingerstick 2024 1:[address] [facility] Blood BLOOD SPECIMEN / Unknown 10/04/2024 12:57 PM QUENCHING CAR OPERATOR 10/04/2024 1:06 PM QUENCHING CAR OPERATOR Vargas Boothe MD LAB - POINT OF CARE ORDERABLES Performing Organization Address City/[facility]/ZIP Co de Phone Number [facility] [address] [place] [phone] * (ABNORMAL) CBC W/O DIFFERENTIAL (10/03/2024 2:59 AM QUENCHING CAR OPERATOR) [facility] WBC 4.0 4.0 - 10.7 x10E9/L 10/03/2024 4:[address] [facility] RBC Count 3.27(L) 4.30 - 5.80 x10E12/L 10/03/2024 4:[address] [facility] Hemoglobin 10.6(L) 13.3 - 17.5 g/dL 10/03/2024 4:[address] [facility] Hematocrit 29.9(L) 38.7 - 51.1 % 10/03/2024 4:[address] [facility] MCV 91.4 80.0 - 98.0 fL 10/03/2024 4:[address] [facility] MCH 32.4 26.7 - 33.6 pg 10/03/2024 4:[address] [facility] MCHC 35.5 31.7 - 36.3 g/dL 10/03/2024 4:[address] [facility] RDW-CV 12.7 11.3 - 14.8 % 10/03/2024 4:[address] [facility] Platelet Count 93(L) 150 - 420 x10E9/L 10/03/2024 4:[address] [facility] MPV 10.5 7.8 - 11.4 fL 10/03/2024 4:[address] [facility] NRBC 1.0(H) <=0.0 /100 WBC 10/03/2024 4:[address] [facility] Blood BLOOD SPECIMEN / Unknown Venipuncture / Unknown 10/03/2024 2:59 AM QUENCHING CAR OPERATOR 10/03/2024 3:40 AM [facility] Aleta Vieira MD LAB - HEMATOLOGY ORD ERABLES Performing Organization Address City/State/[facility] Co de Phone Number [facility] [address] [place], [place] [phone] * TROPONIN-I HIGH SENSITIVE REFLEX 1HOUR (10/02/2024 12:31 PM QUENCHING CAR OPERATOR) Pathologist [facility] Troponin I High Sensitive <3 <=35 ng/L 10/02/2024 1:[address] [facility] Delta Troponin I HS 10/02/2024 1:[address] [facility] Comment:Delta value intentio jem not calculated. Baseline to 1 hour specimen collection interval exceeded. Blood BLOOD SPECIMEN / Unknown Venipuncture / Unknown 10/02/2024 12:31 PM QUENCHING CAR OPERATOR 10/02/2024 12:42 PM QUENCHING CAR OPERATOR Orlando Bowers MD LAB - CHEMISTRY ORDLori KHANLUIS A [facility] [address] [place] [phone] * TROPONIN-I HIGH SENSITIVE BASELINE + 1HR (10/02/2024 8:23 AM QUENCHING CAR OPERATOR) Troponin I High Sensitive <3 <=35 ng/L 10/02/2024 8:55 AM QUENCHING CAR OPERATOR [facility] Blood BLOOD SPECIMEN / Unknown Venipuncture / Unknown 10/02/2024 8:23 AM QUENCHING CAR OPERATOR 10/02/2024 8:28 AM QUENCHING CAR OPERATOR Juvencio Virk MD LAB - CHEMISTRY MANUEL ERINLUIS A Performing Organization Address City/[facility] Co de Phone Number [facility] [address] [place] [phone] * Critical Care (10/02/2024 4:48 AM QUENCHING CAR OPERATOR) Narrative Wei Fan DO - 10/02/2024 4:48 AM QUENCHING CAR OPERATOR Wei Fan DO 10/02/2024 6:49 AM Critical [...] Aleta Vieira MD PROCEDURE/MINOR SURG ICAL ORDERABLES from Last 3 Months Additional Health Concerns Infection Onset Date 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 10/02/2024 10/02/2024 Insurance Payer Benefit Plan / Group Subscriber ID Effective Dates Phone Address Type TPL THIRD [employer]AT LIABILITY TPL [employer] LIABILITY [id number] Effective for all dates Third Green Party Liability [employer] [id number] 11/28/2016-Pres ent [address] [place] [address] PPO [employer]M [employer] [id number] 11/28/2016-Pres ent [address] [place] [address] PPO [employer]M [employer] [id number] 11/28/2016-Pres ent [address] [place] [address] PPO AN[employer]M [employer]ITIONAL [id number] 11/28/2016-Pres ent [address] [place] [address] PPO AN[employer]M [employer]ITIONAL [id number] 11/28/2016-Pres ent [address] [place] [address] PPO AN[employer]M [employer]ITIONAL [id number] 11/28/2016-Pres ent [address] [place] [address] PPO AN[employer]M [employer]AL [id number] 11/28/2016-Pres ent [address] [place] [address] PPO AN[employer]M [employer] [id number] 11/28/2016-Pres ent [address] [place] [address] PPO [employer]M [employer]AL [id number] 11/28/2016-Pres ent [address] [place] [address] PPO [employer]M [employer]AL [id number] 11/28/2016-Pres ent [address] [place] [address] PPO AN[employer]M [employer]AL [id number] 11/28/2016-Pres ent [address] [place] [address] PPO [employer]M [employer] [id number] 11/28/2016-Pres ent [address] [place] [address] PPO AN[employer]M [employer]AL [id number] 11/28/2016-Pres ent [address] [place] [address] PPO AN[employer]M [employer]ITIONAL [id number] 11/28/2016-Pres ent [address] [place] [address] PPO AN[employer]M [employer]AL [id number] 11/28/2016-Pres ent [address] [place] [address] PPO AN[employer]M [employer]ITIONAL [id number] 11/28/2016-Pres ent [address] [place] [address] PPO AN[employer]M [employer]AL [id number] 11/28/2016-Pres ent [address] [place] [address] PPO AN[employer]M [employer]AL [id number] 11/28/2016-Pres ent [address] [place] [address] PPO AN[employer]M [employer] [id number] 11/28/2016-Pres ent [address] [place] [address] PPO AN[employer]M [employer]AL [id number] 11/28/2016-Pres ent [address] [place] [address] PPO AN[employer]M [employer]AL [id number] 11/28/2016-Pres ent [address] [place] [address] PPO AN[employer]M [employer]ITIONAL [id number] 11/28/2016-Pres ent [address] [place] [address] PPO AN[employer]M [employer]AL [id number] 11/28/2016-Pres ent [address] [place] [address] PPO AN[employer]M [employer]ITIONAL [id number] 11/28/2016-Pres ent [address] [place] [address] PPO AN[employer]M [employer]ITIONAL [id number] 11/28/2016-Pres ent [address] [place] [address] PPO AN[employer]M [employer]AL [id number] 11/28/2016-Pres ent [address] [place] [address] PPO AN[employer]M [employer]ITIONAL [id number] 11/28/2016-Pres ent [address] [place] [address] PPO ANTHEM BL[employer] CROSS TRADITIONAL [id number] 11/28/2016-Pres ent [address] [place] [address] PPO ANTHEM BL[employer] CROSS TRADITIONAL [id number] 11/28/2016-Pres ent [address] [place] [address] PPO ANTHEM BL[employer] CROSS TRADITIONAL [id number] 11/28/2016-Pres ent [address] [place] [address] PPO ANTHEM BL[employer] CROSS TRADITIONAL [id number] 11/28/2016-Pres ent [address] [place] [address] PPO ANTHEM BL[employer] CROSS TRADITIONAL [id number] 11/28/2016-Pres ent [address] [place] [address] PPO ANTHEM BL[employer] CROSS TRADITIONAL [id number] 11/28/2016-Pres ent [address] [place] [address] PPO ANTHEM BL[employer] CROSS TRADITIONAL [id number] 11/28/2016-Pres ent [address] [place] [address] PPO ANTHEM BL[employer] CROSS TRADITIONAL [id number] 11/28/2016-Pres ent [address] [place] [address] PPO ANTHEM BLUE CROSS TRADITIONAL [id number] 11/28/2016-Pres ent [address] [place] [address] PPO AETNA AETNA PPO/POS/OA [id number] 01/03/2024-Pre sent [address] [place] [phone] PPO Advance Directives * Full Code (Latest Code Status on File) Date Activated Date Inactivated Comments 11/21/2024 10:53 AM 11/23/2024 11:57 AM * Full Code Date Activated Date Inactivated Comments 10/02/2024 7:30 AM 10/06/2024 11:33 AM * Full Code Date Activated Date Inactivated Comments 08/09/2024 1:47 PM 08/11/2024 1:12 PM * Full Code Date Activated Date Inactivated Comments 08/03/2024 12:08 AM 08/08/2024 11:40 AM * Full Code Date Activated Date Inactivated Comments 06/21/2021 12:44 AM 06/21/2021 7:37 PM Care Teams Civil Designer Relationship Specialty Start Date End Date Mitchel Garibay DO PCP - General Family Medicine 03/13/19
--- OUTSIDE RECORDS SUMMARY | 2024-11-28 02:01 | XMS_ITS | Clinical Summary ---
Author Organization [facility] Floop Address [address] [place] [address] Care Team Providers Care Credit Analysis Manager Name Role Phone Mitchel Garibay DO Primary Care Provider [phone] Source Comments [facility],non-owned Affiliates and Associated Physician Practices is amultiple site organization consisting of ambulatory clinics and hospital sitesin [place], [place], [place] and [place]. This disclosure is being madepursuant to the Care Everywhere program and may not contain all information available regarding this patient. Last updated 18.[facility]oop Allergies Active Allergy Reactions Criticality Noted Date [...] 11/24/2024 Active Cholecalciferol (vitamin D3) 1.25 MG (10903 UT) capsule Take 1 (one) capsule by mouth every 7 days for 11 doses 11 capsule 11/30/2024 5 Active hydrOXYzine hcl (ATARAX) 50 MG tablet [...] Assessment & Plan: Left thumb, admitted to [facility] on 06 August, prolonged hospital stay requiring [...] previous history of seizures. Recently admitted to [facility] for active withdrawals. I recommend patient see intensive outpatient program, he is not open to this currently. Follow-up as needed BMI 24.0-24.9, adult 09/04/2019 Cannabis use disorder, moderate, dependence 07/27 Panic disorder 08/21/2019 Alcohol use disorder, severe, dependence 019 Closed bimalleolar fracture of right ankle 07/26 Overview (04/02/2021): Added automatically from request for surgery [id number] Last Assessment & Plan: End of June fractured R ankle after falling down stairs. Did not have surgery. Went to [place] for friend's wedding instead. Was in a hard cast and now in a boot. Using crutches. Is non weight bearing for at least four more weeks. Follow up with Dr. Tony as scheduled. Acute right ankle pain 07/26/2019 Overview (04/02/2021): Added automatically from request for surgery [id number] Marijuana use, continuous 01/22/2019 Overview (04/02/2021): Last [...] pursue this currently. Patient recently seen at [facility], admitted overnight for alcohol withdrawal. Given refill [...] troponin 08/09/2024 08/10/2024 Elevated LFTs 08/09/2024 08/10/2024 Encounters Date Type Department Care Team Description 11/21/2024 7:50 AM INFORMATION CONSULTANT - 11/23/2024 10:52 AM [facility] Hospital Encounter [facility] 3 Transitional Care Unit [address] [place] [phone] Gagandeep Bone, Clarita Oneil, Reynaldo Mott MD Emergency Medicine Discharge Disposition: Home or Self Care 11/21/2024 Travel 10/02/2024 4:37 AM INFORMATION CONSULTANT - 10/06/2024 10:32 AM [facility] Hospital Encounter [facility] 3E MED/ONC [address] [place] [phone] Wei Fan DO Hasan, Seba, MD Chilappa, Madan M, MD Rafique, Salam, MD Patel, Paragkumar, MD Ibrahim, Saira, MD Hospitalist Discharge Disposition: Home or Self Care 10/02/2024 Travel from Last 3 Months Immunizations Name Administration Dates Next Due INFLUENZA [...] and heating? Not hard at all 11/23/2024 [facility] Occupat ional Health - Occupational Stress [...] any time in the past 12 [facility], were you homeless or living in a [facility] (including now)? No 11/23/2024 Sex and Gender Information Value Date Recorded Sex Assigned at Not on file Gender Identity Male 06/20/2021 9:48 PM CDT Sexual Orientation Not on file Last Filed Vital Signs Vital Sign Reading Time Taken Comments Blood Pressure 139/95 11/23/2024 8:02 AM INFORMATION CONSULTANT Pulse 86 11/23/2024 8:02 AM INFORMATION CONSULTANT Temperature 36.4 C (97.6 F) 11/23/2024 8:02 AM INFORMATION CONSULTANT Respiratory Rate 17 11/23/2024 8:02 AM INFORMATION CONSULTANT Oxygen Saturation 99% 11/23/2024 8:02 AM INFORMATION CONSULTANT Inhaled Oxygen Concentration 30% 03/07/2021 3 :14 PM CDT Weight 92.4 kg (203 lb 9.6 oz) 11/21/2024 12:20 PM INFORMATION CONSULTANT Height 188 cm (6' 2 ) 11/21/2024 12:20 PM INFORMATION CONSULTANT Body Mass Index 26.14 11/21/2024 12:20 PM INFORMATION CONSULTANT Plan of Treatment Health Maintenance Due Date Last Done Comments HIV SCREENING 2005 HEPATITIS C SCREENING 11/06/2008 HEPATITIS B VACCINE (1 of 3 - 19+ 3-dose series) 2009 PNEUMOCOCCAL VACCINE (1 of 2 - PCV) 2009 COVID-19 VACCINE (2 - 2023-2 5 season) 2024 05/05/2021 INFLUENZA VACCINE (#1) 2024 , 09/04/2019, 07/23/2018 DEPRESSION SCREENING 09/25/2024 DTAP/TDAP/TD VACCINES (2 - T d or Tdap) 03/01/2031 03/01/2021 ZOSTER VACCINE (1 of 2) 2040 HIB VACCINE Aged Out No longer eligi ble based on patient's age to complete this topic HPV VACCINE Aged Out No longer eligi ble based on patient's age to complete this topic MENINGOCOCCAL (Group B) VACCINE Aged Out No longer eligible b ased on patient's age to complete this topic MENINGOCOCCAL VACCINE Aged Out No fer candace eligible based on patient's age to complete this topic Medical Devices Implanted Type Area Utility Engineer Device Identifier Shelf Expiration Date Model / Serial / Lot Nail Im 11mm 180mm Affixus Hip Fem Goal Implanted:Qty: 1 on 03/08/2021 by Madhav Elizabeth DO at [facility] Right: Femur [employer] 10/28/2030 [id number] / / [id number] Screw 10.5mm 95mm 6.5mm Lag Slf-Tap Rvrs Implanted:Qty: 1 on 03/08/2021 by Madhav Elizabeth DO at [facility] Right: Femur [employer] 08/14/2028 [id number] / / [id number] Screw 5mm 38mm 3.5mm Hex Drvr Sckt Hip Implanted:Qty: 1 on 03/08/2021 by Madhav Elizabeth DO at [facility] Right: Femur [employer] 04/29/2030 [id number] / / [id number] Explanted Type Area Utility Engineer Device Identifier Shelf Expiration Date Model / Serial / Lot Wire K 2mm 350mm 1 End Troc Pnt Thrd Ss Explanted:Qty: 2 on 03/08/2021 by Madhav Elizabeth DO at [facility] Right: Femur [employer] 07/29/2029 [id number] / / [id number] Procedures Procedure Name Priority Date/Time Associated Diagnosis Comments CARDIAC RHYTHM STRIP ORDER 11/25/2024 5:00 PM INFORMATION CONSULTANT RENAL FUNCTION PANEL AM Draw 11/23/2024 4:44 AM INFORMATION CONSULTANT LACTIC ACID BLOOD AM Draw 11/23/2024 4:4 4 AM INFORMATION CONSULTANT EKG 12-LEAD Routine 11/22/2024 1:57 PM INFORMATION CONSULTANT History of seizure due to alcohol withdrawal LACTIC ACID BLOOD STAT 11/22/2024 10: 19 AM INFORMATION CONSULTANT VITAMIN D 25-HYDROXY STAT 11/22/2024 2:48 AM INFORMATION CONSULTANT COMPREHENSIVE METABOLIC PANEL AM Draw 11/22/2024 2:48 AM INFORMATION CONSULTANT LACTIC ACID BLOOD Timed 11/21/2024 6:4 5 PM INFORMATION CONSULTANT LACTIC ACID BLOOD STAT 11/21/2024 2:4 5 PM INFORMATION CONSULTANT Acidosis URINE DRUG SCREEN IMMUNOASSAY STAT 11/21/2024 1:53 PM INFORMATION CONSULTANT URINALYSIS REFLEX TO MICROSCOPIC NO CULTURE STAT 11/21/2024 1:53 PM INFORMATION CONSULTANT LEVETIRACETAM LEVEL STAT 11/21/2024 1 1:29 AM INFORMATION CONSULTANT 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) PHOSPHORUS BLOOD STAT 11/21/2024 11:2 9 AM INFORMATION CONSULTANT Hypophosphatemia BASIC METABOLIC PANEL (CALCIUM TOTAL) STAT 11/21/2024 11:29 AM INFORMATION CONSULTANT 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) Hyperkalemia HYDROXYBUTYRATE BETA STAT 11/21/2024 11:29 AM INFORMATION CONSULTANT LACTIC ACID BLOOD STAT 11/21/2024 11: 29 AM INFORMATION CONSULTANT SARS-COV-2 (COVID-19) FLU A/B RSV PCR RAPID STAT 11/21/2024 11:29 AM INFORMATION CONSULTANT XR CHEST 1VW PORTABLE STAT 11/21/2024 10:38 AM INFORMATION CONSULTANT 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) SLIDE SCAN HEMATOLOGY STAT 11/21/2024 8:50 AM INFORMATION CONSULTANT ALCOHOL ETHYL BLOOD STAT 11/21/2024 8 :50 AM INFORMATION CONSULTANT PHOSPHORUS BLOOD STAT 11/21/2024 8:50 AM INFORMATION CONSULTANT MAGNESIUM BLOOD STAT 11/21/2024 8:50 AM INFORMATION CONSULTANT LIPASE BLOOD STAT 11/21/2024 8:50 AM INFORMATION CONSULTANT COMPREHENSIVE METABOLIC PANEL STAT 11/21/2024 8:50 AM INFORMATION CONSULTANT CBC W AUTO DIFFERENTIAL STAT 11/21/19 8:50 AM INFORMATION CONSULTANT CARDIAC RHYTHM STRIP ORDER 10/07/2024 6:55 PM INFORMATION CONSULTANT URINALYSIS REFLEX TO MICROSCOPIC NO CULTURE STAT 10/05/2024 9:20 PM INFORMATION CONSULTANT GLUCOSE - POINT OF CARE Routine 10/04/19 12:57 PM INFORMATION CONSULTANT COMPREHENSIVE METABOLIC PANEL AM Draw 10/04/2024 3:26 AM INFORMATION CONSULTANT CBC W AUTO DIFFERENTIAL AM Draw 10/04/19 3:26 AM INFORMATION CONSULTANT COMPREHENSIVE METABOLIC PANEL AM Draw 10/03/2024 6:06 AM INFORMATION CONSULTANT MAGNESIUM BLOOD AM Draw 10/03/2024 2:59 AM INFORMATION CONSULTANT CBC W/O DIFFERENTIAL AM Draw 10/03/2024 2:59 AM INFORMATION CONSULTANT URINE DRUG SCREEN IMMUNOASSAY Routine 10/03/2024 12:08 AM INFORMATION CONSULTANT TROPONIN-I HIGH SENSITIVE REFLEX 1HOUR Timed 10/02/2024 12:31 PM INFORMATION CONSULTANT TROPONIN-I HIGH SENSITIVE BASELINE + 1HR STAT 10/02/2024 8:23 AM INFORMATION CONSULTANT LEVETIRACETAM LEVEL STAT 10/02/2024 6 :00 AM INFORMATION CONSULTANT LIPASE BLOOD Add on 10/02/2024 5:04 AM INFORMATION CONSULTANT MAGNESIUM BLOOD STAT 10/02/2024 5:04 AM INFORMATION CONSULTANT COMPREHENSIVE METABOLIC PANEL STAT 10/02/2024 5:04 AM INFORMATION CONSULTANT CBC W AUTO DIFFERENTIAL STAT 10/02/19 5:03 AM INFORMATION CONSULTANT ED CRITICAL CARE Routine 10/02/2024 4:48 AM INFORMATION CONSULTANT from Last 3 Months Results * CARDIAC RHYTHM STRIP ORDER (11/25/2024 5:00 PM INFORMATION CONSULTANT) Only the most recent of2 resultswithin the time period is included. Narrative 11/25/2024 5:00 PM INFORMATION CONSULTANT Ordered by an unspecified provider. Scanned Document CARDIAC SERVICES ORD ERABLES * (ABNORMAL) RENAL FUNCTION PANEL (11/23/2024 4:44 AM INFORMATION CONSULTANT) Glucose 86 70 - 99 mg/dL 11/23/2024 5:42 AM [facility] Sodium 138 136 - 145 mmol/L 11/23/2024 5:42 AM [facility] Potassium 3.6 3.5 - 5.1 mmol/L 11/23/2024 5:42 AM [facility] Chloride 108(H) 98 - 107 mmol/L 11/23/2024 5:42 AM [facility] CO2 22 22 - 29 mmol/L 11/23/2024 5:42 AM [facility] Calcium 8.6 8.4 - 10.4 mg/dL 11/23/2024 5:42 AM [facility] Anion Gap 8 6 - 16 mmol/L 11/23/2024 5:42 AM [facility] BUN 6 5.3 - 18.7 mg/dL 11/23/2024 5:42 AM [facility] Creatinine 0.74 0.72 - 1.25 mg/dL 11/23/2024 5:42 AM [facility] Albumin 3.4 3.4 - 5.0 gm/dL 11/23/2024 5:42 AM [facility] Phosphorus 3.4 2.5 - 4.5 mg/dL 11/23/2024 5:42 AM [facility] eGFR by CKD-EPI >90 >=90 mL/min/1.7 3 m2 11/23/2024 5:42 AM [facility] Blood BLOOD SPECIMEN / Unknown Lab Venipuncture / Unknown 11/23/2024 4:44 AM INFORMATION CONSULTANT 11/23/2024 5:09 AM INFORMATION CONSULTANT Reynaldo Almazan MD LAB - CHEMISTRY MANUEL ORTA [facility] Organization Address City/State/ZIP Co de Phone Number [facility] [address] [place] [phone] * LACTIC ACID BLOOD (11/23/2024 4:44 AM INFORMATION CONSULTANT) Only the most recent of5 resultswithin the time period is included. Lactic Acid 0.925 <=2 mmol/L 11/23/2024 5:37 AM INFORMATION CONSULTANT [facility] Blood BLOOD SPECIMEN / Unknown Lab Venipuncture / Unknown 11/23/2024 4:44 AM INFORMATION CONSULTANT 11/23/2024 5:08 AM INFORMATION CONSULTANT Reynaldo Almazan MD LAB - CHEMISTRY ORDLori ORTA Performing Organization Address [facility]/ZIP Co de Phone Number [facility] [address] [place] [phone] * EKG 12-LEAD (11/22/2024 1:57 PM INFORMATION CONSULTANT) Pathologist [facility] Ventricular Rate 79 BPM [facility] MUSE Atrial Rate 79 BPM [facility] MUSE P-R Interval 150 ms [facility] MUSE QRS Duration ms 86 ms [facility] MUSE Q-T Interval ms 370 ms [facility]USE QTC Calculation (Bezet) 424 ms [facility] MUSE Calculated P [place] 56 degrees [facility] MUSE Calculated R [place] 35 degrees [facility] MUSE Calculated T [place] 24 degrees [facility] MUSE Interpretation EKG NORMAL SINUS RHYTHM WITH SINUS ARRHYTHMIA NORMAL ECG Confirmed by DO COBURN STEPHANIE ([id number]) on 11/22/2024 6:29:46 PM [facility] MUSE 11/22/2024 1:57 PM INFORMATION CONSULTANT 11/22/2024 6:29 PM INFORMATION CONSULTANT Reynaldo Almazan MD ECG ORDERABLES Performing Organization Address City/[facility]/ZIP Co de Phone Number [facility] * (ABNORMAL) VITAMIN D 25-HYDROXY (11/22/2024 2:48 AM INFORMATION CONSULTANT) Pathologist [facility] Vitamin D, 25 Hydroxy 22.2(L) 30 - 80 ng/mL 11/22/2024 10:39 AM INFORMATION CONSULTANT [facility] Blood BLOOD SPECIMEN / Unknown Lab Venipuncture / Unknown 11/22/2024 2:48 AM INFORMATION CONSULTANT 11/22/2024 3:40 AM [facility] - 11/22/2024 10:39 AM [facility] Vitamin D Status: Deficiency <20 ng/mL Insufficiency 20-30 ng/mL Sufficiency 30-100 ng/mL Toxicity >100 ng/mL Reynaldo Almazan MD LAB - CHEMISTRY MANUEL ORTA [facility] Organization Address City/State/ZIP Co de Phone Number [facility] [address] [place] [address] * COMPREHENSIVE METABOLIC PANEL (11/22/2024 2:48 AM [facility]) Only the most recent of5 resultswithin the time period is included. [facility] Glucose 90 70 - 99 mg/dL 11/22/2024 4:28 AM [facility] Sodium 136 136 - 145 mmol/L 11/22/2024 4:28 AM [facility] Potassium 3.8 3.5 - 5.1 mmol/L 11/22/2024 4:28 AM [facility] Chloride 102 98 - 107 mmol/L 11/22/2024 4:28 AM [facility] CO2 23 22 - 29 mmol/L 11/22/2024 4:28 AM [facility] Calcium 9.0 8.4 - 10.4 mg/dL 11/22/2024 4:28 AM [facility] Anion Gap 11 6 - 16 mmol/L 11/22/2024 4:28 AM [facility] BUN 6 5.3 - 18.7 mg/dL 11/22/2024 4:28 AM [facility] Creatinine 0.80 0.72 - 1.25 mg/dL 11/22/2024 4:28 AM [facility] Alkaline Phosphatase 53 40 - 150 U/L 11/22/2024 4:28 AM [facility] ALT 32 0 - 55 U/L 11/22/2024 4:28 AM [facility] AST 28 5 - 34 U/L 11/22/2024 4:28 AM [facility] Protein Total 7.2 6.4 - 8.3 gm/dL 11/22/2024 4:28 AM [facility] Albumin 3.8 3.4 - 5.0 gm/dL 11/22/2024 4:28 AM [facility] Bilirubin Total 1.2 0.2 - 1.2 mg/dL 11/22/2024 4:28 AM [facility] eGFR by CKD-EPI >90 >=90 mL/min/1.7 3 m2 11/22/2024 4:28 AM [facility] Blood BLOOD SPECIMEN / Unknown Lab Venipuncture / Unknown 11/22/2024 2:48 AM INFORMATION CONSULTANT 11/22/2024 3:40 AM INFORMATION CONSULTANT Reynaldo Almazan MD LAB - CHEMISTRY MANUEL ORTA [facility] [address] [place] [address] * (ABNORMAL) URINALYSIS REFLEX TO MICROSCOPIC NO CULTURE (11/21/2024 1:53 PM INFORMATION CONSULTANT) Only the most recent of2 resultswithin the time period is included. Color UA Yellow Yellow, Straw 11/21/2024 2:17 PM [facility] Clarity UA Clear Clear 11/21/2024 2:17 PM [facility] Glucose UA Normal Normal 11/21/2024 2:17 PM [facility] Bilirubin UA Negative Negative 11/21/2024 2:17 PM [facility] Ketone UA 1+(A) Negative 11/21/2024 2:17 PM [facility] Specific [place] UA 1.018 1.005 - 1.030 11/21/2024 2:17 PM [facility] Blood UA Negative Negative 11/21/2024 2:17 PM [facility] pH UA 6.5 5.0 - 9.0 pH 11/21/2024 2:17 PM [facility] Protein UA 2+(A) Negative 11/21/2024 2:17 PM [facility] Urobilinogen UA Normal Normal mg/dL 025 2:17 PM [facility] Nitrite UA Negative Negative 11/21/2024 2:17 PM [facility] Leukocyte UA Negative Negative 11/21/2024 2:17 PM [facility] RBC UA 3-5 0 - 5 # /hpf 11/21/2024 2:17 PM INFORMATION CONSULTANT [facility] WBC UA 0-5 0 - 5 # /hpf 11/21/2024 2:17 PM INFORMATION CONSULTANT [facility] Bacteria UA None Seen None Seen 11/21/2024 2:17 PM INFORMATION CONSULTANT [facility] Squamous Epithelial Cells None Seen 0 - 5 /hpf 11/21/2024 2:17 PM INFORMATION CONSULTANT [facility] Urine URINE SPECIMEN OBTAINED BY CLEAN CATCH PROCEDURE / Unknown Collection / Unknown 11/21/2024 1:53 PM INFORMATION CONSULTANT 11/21/2024 2:10 PM INFORMATION CONSULTANT Narrative [facility] - 11/21/2024 2:17 PM INFORMATION CONSULTANT Gagandeep Bone DO LAB - URINALYSIS ORD ERABLES [facility] [address] [place] [address] * (ABNORMAL) URINE DRUG SCREEN IMMUNOASSAY (11/21/2024 1:53 PM INFORMATION CONSULTANT) Only the most recent of2 resultswithin the time period is included. [facility] Amphetamines Screen Urine Not detected Not detected 11/21/2024 3:14 PM INFORMATION CONSULTANT [facility] Barbiturates Screen Urine Detected(A) Not detected 11/21/2024 3:14 PM [facility] Benzodiazepines Screen Urine Detected(A) Not detected 11/21/2024 3:14 PM [facility] Cannabinoids Screen Urine Detected(A) Not detected 11/21/2024 3:14 PM [facility] Cocaine Screen Urine Not detected Not detected 11/21/2024 3:14 PM [facility] Fentanyl Urine Not detected Not detected 11/21/2024 3:14 PM [facility] Methadone Screen Urine Not detected Not detected 11/21/2024 3:14 PM [facility] Opiate Screen Urine Not detected Not detected 11/21/2024 3:14 PM [facility] Phencyclidine Screen Urine Not detected Not detected 11/21/2024 3:14 PM [facility] Urine URINE / Unknown Collection / Unknown 11/21/2024 1:53 PM INFORMATION CONSULTANT 11/21/2024 2:10 PM INFORMATION CONSULTANT Narrative [facility] - 11/21/2024 3:14 PM INFORMATION CONSULTANT This drug screen is designed for MEDICAL [...] DO LAB - URINE CHEMISTR Y ORDERABLES [facility] [address] [place] [address] * SARS-COV-2 (COVID-19) FLU A/B RSV PCR RAPID (11/21/2024 11:29 AM INFORMATION CONSULTANT) Pathologist [facility] COVID-19 PCR Not detected Not detected 11/21/19 12:07 PM [facility] Influenza A PCR Not detected Not detected 11/21/2024 12:07 PM [facility] Influenza B PCR Not detected Not detected 11/21/2024 12:07 PM [facility] RSV PCR Not detected Not detected 11/21/2024 12:07 PM [facility] Microbiology SPECIMEN FROM NASOPHARYNGEAL STRUCTURE / Unknown Collection / Unknown 11/21/2024 11:29 AM INFORMATION CONSULTANT 11/21/2024 11:29 AM INFORMATION CONSULTANT Narrative [facility] - 11/21/2024 12:07 PM INFORMATION CONSULTANT This nucleic acid amplification assay has been [...] - MICROBIOLOGY O RDERABLES Performing Organization Address [facility] Co de Phone Number [facility] [address] [place] [phone] * LEVETIRACETAM LEVEL (11/21/2024 11:29 AM INFORMATION CONSULTANT) Only the most recent of2 resultswithin the time period is included. Levetiracetam 24.63 10 - 40 ug/mL 11/21/2024 11:55 AM INFORMATION CONSULTANT [facility] Blood BLOOD SPECIMEN / Unknown Venipuncture / Unknown 11/21/2024 11:29 AM INFORMATION CONSULTANT 11/21/2024 11:29 AM INFORMATION CONSULTANT Theresa Espinoza END FINDER TWISTING DEPARTMENT-SHEET METAL MECHANIC LAB - THERAP EUTIC DRUG MONITORING ORDERABLES Performing Organization Address [facility] de Phone Number [facility] [address] [place] [address] * HYDROXYBUTYRATE BETA (11/21/2024 11:29 AM INFORMATION CONSULTANT) Beta-Hydroxybu tyrate <0.50 <0.50 mmol/L 11/21/2024 11:45 AM INFORMATION CONSULTANT [facility] Blood BLOOD SPECIMEN / Unknown Venipuncture / Unknown 11/21/2024 11:29 AM INFORMATION CONSULTANT 11/21/2024 11:29 AM INFORMATION CONSULTANT Narrative [facility] - 11/21/2024 11:45 AM INFORMATION CONSULTANT Results >1.5 mmol/L may be indicative of diabetic ketoacidosis. Use in conjunction with Serum Glucose levels. Aleta Vieira MD LAB - CHEMISTRY MANUEL ORTA Performing Organization Address [facility] Co de Phone Number [facility] [address] [place] [phone] * (ABNORMAL) BASIC METABOLIC PANEL (CALCIUM TOTAL) (11/21/2024 11:29 AM INFORMATION CONSULTANT) Glucose 113(H) 70 - 99 mg/dL 11/21/2024 11:45 AM INFORMATION CONSULTANT [facility] Sodium 137 136 - 145 mmol/L 11/21/2024 11:45 AM [facility] Potassium 3.7 3.5 - 5.1 mmol/L 11/21/2024 11:45 AM [facility] Chloride 102 98 - 107 mmol/L 11/21/2024 11:45 AM [facility] CO2 18(L) 22 - 29 mmol/L 11/21/2024 11:45 AM [facility] Calcium 9.3 8.4 - 10.4 mg/dL 11/21/2024 11:45 AM [facility] Anion Gap 17(H) 6 - 16 mmol/L 11/21/2024 11:45 AM [facility] BUN 10 5.3 - 18.7 mg/dL 11/21/2024 11:45 AM [facility] Creatinine 0.93 0.72 - 1.25 mg/dL 11/21/2024 11:45 AM [facility] eGFR by CKD-EPI >90 >=90 mL/min/1.7 3 m2 11/21/2024 11:45 AM [facility] Blood BLOOD SPECIMEN / Unknown Venipuncture / Unknown 11/21/2024 11:29 AM INFORMATION CONSULTANT 11/21/2024 11:29 AM INFORMATION CONSULTANT Theresa Espinoza APRN-SHEET METAL MECHANIC LAB - CHEMIS TRY ORDERABLES Performing Organization Address [facility] de Phone Number [facility] [address] [place] [phone] * PHOSPHORUS BLOOD (11/21/2024 11:29 AM INFORMATION CONSULTANT) Only the most recent of2 resultswithin the time period is included. Phosphorus 3.7 2.5 - 4.5 mg/dL 11/21/2024 11:48 AM [facility] Blood BLOOD SPECIMEN / Unknown Venipuncture / Unknown 11/21/2024 11:29 AM INFORMATION CONSULTANT 11/21/2024 11:29 AM INFORMATION CONSULTANT Theresa Espinoza END FINDER TWISTING DEPARTMENT-SHEET METAL MECHANIC LAB - CHEMIS TRY ORDERABLES Performing Organization Address City/State/[facility] Co de Phone Number [facility] [address] [place] [address] * XR Chest 1Vw Portable (11/21/2024 10:38 AM INFORMATION CONSULTANT) Anatomical Region Laterality Modality Chest Radiographic Ashley ging 11/21/2024 10:4 2 AM INFORMATION CONSULTANT Narrative 11/21/2024 10:42 AM INFORMATION CONSULTANT PROCEDURE: XR CHEST 1VW PORTABLE DATE/TIME OF [...] * SLIDE SCAN HEMATOLOGY (11/21/2024 8:50 AM INFORMATION CONSULTANT) RBC Morphology NORMAL 11/21/2024 10:15 AM INFORMATION CONSULTANT [facility] Blood BLOOD SPECIMEN / Unknown Venipuncture / Unknown 11/21/2024 8:50 AM INFORMATION CONSULTANT 11/21/2024 8:51 AM INFORMATION CONSULTANT Gagandeep Bone DO LAB - HEMATOLOGY ORD ERABLES [facility] [address] [place] [address] * (ABNORMAL) CBC W AUTO DIFFERENTIAL (11/21/2024 8:50 AM [facility]) Only the most recent of3 resultswithin the time period is included. WBC 10.1 4.0 - 10.7 x10E9/L 11/21/2024 10:15 AM [facility] RBC Count 5.62 4.30 - 5.80 x10E12/L 11/21/2024 10:15 AM [facility] LABORATORY Hemoglobin 17.4 13.3 - 17.5 g/dL 11/21/2024 10:15 AM [facility] Hematocrit 47.1 38.7 - 51.1 % 11/21/2024 10:15 AM [facility] MCV 83.8 80.0 - 98.0 fL 11/21/2024 10:15 AM [facility] MCH 31.0 26.7 - 33.6 pg 11/21/2024 10:15 AM [facility] MCHC 36.9(H) 31.7 - 36.3 g/dL 11/21/2024 10:15 AM [facility] RDW-CV 12.2 11.3 - 14.8 % 11/21/2024 10:15 AM [facility] Platelet Count 311 150 - 420 x10E9/L 11/21/2024 10:15 AM [facility] MPV 9.8 7.8 - 11.4 fL 11/21/2024 10:15 AM [facility] Neutrophil % 71.9 41.0 - 74.0 % 11/21/2024 10:15 AM [facility] Lymphocyte % 23.5 17.0 - 47.0 % 11/21/2024 10:15 AM [facility] Monocyte % 3.5 3.0 - 11.0 % 11/21/2024 10:15 AM [facility] Eosinophil % 0.2 0.0 - 7.0 % 11/21/2024 10:15 AM [facility] Basophil % 0.6 0.0 - 1.6 % 11/21/2024 10:15 AM [facility] Immature Granulocytes % 0.3 0.0 - 1.0 % 11/21/2024 10:15 AM [facility] Neutrophil Absolute 7.24 1.60 - 7.50 x10E9/L 11/21/2024 10:15 AM INFORMATION CONSULTANT [facility] Lymphocyte Absolute 2.37 1.00 - 4.40 x10E9/L 11/21/2024 10:15 AM INFORMATION CONSULTANT [facility] Monocyte Absolute 0.35 0.15 - 1.00 x10E9/L 11/21/2024 10:15 AM INFORMATION CONSULTANT [facility] Eosinophil Absolute 0.02 0.00 - 0.60 x10E9/L 11/21/2024 10:15 AM INFORMATION CONSULTANT [facility] Basophil Absolute 0.06 0.00 - 0.13 x10E9/L 11/21/2024 10:15 AM INFORMATION CONSULTANT [facility] Blood BLOOD SPECIMEN / Unknown Venipuncture / Unknown 11/21/2024 8:50 AM INFORMATION CONSULTANT 11/21/2024 8:51 AM INFORMATION CONSULTANT Gagandeep Bone DO LAB - HEMATOLOGY ORD ERABLES Performing Organization Address City/[facility]/ZIP Co de Phone Number [facility] [address] [place] [address] [phone] * MAGNESIUM BLOOD (11/21/2024 8:50 AM INFORMATION CONSULTANT) Only the most recent of3 resultswithin the time period is included. Magnesium 1.8 1.6 - 2.6 mg/dL 11/21/2024 9:18 AM [facility] Blood BLOOD SPECIMEN / Unknown Venipuncture / Unknown 11/21/2024 8:50 AM INFORMATION CONSULTANT 11/21/2024 8:51 AM INFORMATION CONSULTANT Gagandeep Bone DO LAB - CHEMISTRY ORDE RABLES Performing Organization Address City/[facility]/ZIP Co de Phone Number [facility] [address] [place] [phone] * LIPASE BLOOD (11/21/2024 8:50 AM INFORMATION CONSULTANT) Only the most recent of2 resultswithin the time period is included. Lipase 25 <60 U/L 11/21/2024 9:12 AM INFORMATION CONSULTANT [facility] Blood BLOOD SPECIMEN / Unknown Venipuncture / Unknown 11/21/2024 8:50 AM INFORMATION CONSULTANT 11/21/2024 8:51 AM INFORMATION CONSULTANT Gagandeep Bone DO LAB - CHEMISTRY MANUEL ORTA Performing Organization Address [facility] Co de Phone Number [facility] [address] [place] [phone] * (ABNORMAL) ALCOHOL ETHYL BLOOD (11/21/2024 8:50 AM INFORMATION CONSULTANT) Ethanol 77.0(H) <10 mg/dL 11/21/2024 9:18 AM INFORMATION CONSULTANT [facility] Ethanol Calculated 0.077 <=0.100 gm/dL 11/21/2024 9:18 AM [facility] Blood BLOOD SPECIMEN / Unknown Venipuncture / Unknown 11/21/2024 8:50 AM INFORMATION CONSULTANT 11/21/2024 8:51 AM INFORMATION CONSULTANT Narrative [facility] - 11/21/2024 9:18 AM INFORMATION CONSULTANT Ethanol Interp <10: None Detected Depression of [...] a TAMMI for legal purposes. Gagandeep Bone LAB - CHEMISTRY MANUEL ORTA Performing Organization Address [facility] Co de Phone Number [facility] [address] [place] [phone] * GLUCOSE - POINT OF CARE (10/04/2024 12:57 PM INFORMATION CONSULTANT) Glucose WB/POC 83 70 - 99 mg/dL 10/04/2024 1:06 PM INFORMATION CONSULTANT [facility] Specimen Type Cap Fingerstick 2024 1:06 PM INFORMATION CONSULTANT [facility] Blood BLOOD SPECIMEN / Unknown 10/04/2024 12:57 PM INFORMATION CONSULTANT 10/04/2024 1:06 PM INFORMATION CONSULTANT Vargas Boothe MD LAB - POINT OF CARE ORDERABLES [facility] [address] [place] [address] * (ABNORMAL) CBC W/O DIFFERENTIAL (10/03/2024 2:59 AM [facility]) [facility] WBC 4.0 4.0 - 10.7 x10E9/L 10/03/2024 4:02 AM [facility] RBC Count 3.27(L) 4.30 - 5.80 x10E12/L 10/03/2024 4:02 AM [facility] Hemoglobin 10.6(L) 13.3 - 17.5 g/dL 10/03/2024 4:02 AM [facility] Hematocrit 29.9(L) 38.7 - 51.1 % 10/03/2024 4:02 AM [facility] MCV 91.4 80.0 - 98.0 fL 10/03/2024 4:02 AM [facility] MCH 32.4 26.7 - 33.6 pg 10/03/2024 4:02 AM [facility] MCHC 35.5 31.7 - 36.3 g/dL 10/03/2024 4:02 AM [facility] RDW-CV 12.7 11.3 - 14.8 % 10/03/2024 4:02 AM [facility] Platelet Count 93(L) 150 - 420 x10E9/L 10/03/2024 4:02 AM [facility] MPV 10.5 7.8 - 11.4 fL 10/03/2024 4:02 AM [facility] NRBC 1.0(H) <=0.0 /100 WBC 10/03/2024 4:02 AM [facility] Blood BLOOD SPECIMEN / Unknown Venipuncture / Unknown 10/03/2024 2:59 AM INFORMATION CONSULTANT 10/03/2024 3:40 AM [facility] Aleta Vieira MD LAB - HEMATOLOGY ORD ERABLES [facility] [address] [place], [place] [phone] * TROPONIN-I HIGH SENSITIVE REFLEX 1HOUR (10/02/2024 12:31 PM INFORMATION CONSULTANT) Troponin I High Sensitive <3 <=35 ng/L 10/02/2024 1:12 PM INFORMATION CONSULTANT [facility] Delta Troponin I HS 10/02/2024 1:12 PM INFORMATION CONSULTANT [facility] Comment:Delta value intentio jem not calculated. Baseline to 1 hour specimen collection interval exceeded. Blood BLOOD SPECIMEN / Unknown Venipuncture / Unknown 10/02/2024 12:31 PM INFORMATION CONSULTANT 10/02/2024 12:42 PM INFORMATION CONSULTANT Orlando Bowers MD LAB - CHEMISTRY MANUEL ORTA Performing Organization Address [facility]/ZIP Co de Phone Number [facility] [address] [place] [phone] * TROPONIN-I HIGH SENSITIVE BASELINE + 1HR (10/02/2024 8:23 AM INFORMATION CONSULTANT) Troponin I High Sensitive <3 <=35 ng/L 10/02/2024 8:55 AM INFORMATION CONSULTANT [facility] Blood BLOOD SPECIMEN / Unknown Venipuncture / Unknown 10/02/2024 8:23 AM INFORMATION CONSULTANT 10/02/2024 8:28 AM INFORMATION CONSULTANT Juvencio Virk MD LAB - CHEMISTRY MANUEL ORTA Performing Organization Address [facility]/ZIP Co de Phone Number [facility] [address] [place] [phone] * Critical Care (10/02/2024 4:48 AM INFORMATION CONSULTANT) Narrative Wei Fan DO - 10/02/2024 4:48 AM INFORMATION CONSULTANT Wei Fan DO 10/02/2024 6:49 AM Critical [...] THIRD DEMOCRAT LIABILITY TPL THIRD DEMO[employer]AT LIABILITY [id number] Effective for all dates Third [employer] Party Liability ANTHEM [employer]OSS [employer]ITIONAL [id number] 11/28/2016-Pres ent [address] [place] [address] PPO ANTHEM [employer]OSS [employer]ITIONAL [id number] 11/28/2016-Pres ent [address] [place] [address] PPO ANTHEM [employer]OSS [employer]ITIONAL [id number] 11/28/2016-Pres ent [address] [place] [address] PPO ANTHEM [employer] CROSS [employer]ADITIONAL [id number] 11/28/2016-Pres ent [address] [place] [address] PPO ANTHEM [employer] CROSS [employer]ADITIONAL [id number] 11/28/2016-Pres ent [address] [place] [address] PPO ANTHEM [employer]OSS [employer]ADITIONAL [id number] 11/28/2016-Pres ent [address] [place] [address] PPO ANTHEM [employer]OSS [employer]ADITIONAL [id number] 11/28/2016-Pres ent [address] [place] [address] PPO ANTHEM [employer]OSS [employer]ITIONAL [id number] 11/28/2016-Pres ent [address] [place] [address] PPO ANTHEM [employer]OSS [employer]ITIONAL [id number] 11/28/2016-Pres ent [address] [place] [address] PPO ANTHEM [employer]OSS [employer]ITIONAL [id number] 11/28/2016-Pres ent [address] [place] [address] PPO ANTHEM [employer]ITIONAL [id number] 11/28/2016-Pres ent [address] [place] [address] PPO ANTHEM [employer]OSS [employer]ITIONAL [id number] 11/28/2016-Pres ent [address] [place] [address] PPO ANTHEM [employer]ITIONAL [id number] 11/28/2016-Pres ent [address] [place] [address] PPO ANTHEM [employer]OSS [employer]ADITIONAL [id number] 11/28/2016-Pres ent [address] [place] [address] PPO ANTHEM [employer] CROSS TRADITIONAL [id number] 11/28/2016-Pres ent [address] [place] [address] PPO ANTHEM [employer]OSS [employer]ADITIONAL [id number] 11/28/2016-Pres ent [address] [place] [address] PPO ANTHEM [employer]OSS TRADITIONAL [id number] 11/28/2016-Pres ent [address] [place] [address] PPO ANTHEM [employer] CROSS TRADITIONAL [id number] 11/28/2016-Pres ent [address] [place] [address] PPO ANTHEM [employer]OSS TRADITIONAL [id number] 11/28/2016-Pres ent [address] [place] [address] PPO ANTHEM [employer]OSS [employer]ADITIONAL [id number] 11/28/2016-Pres ent [address] [place] [address] PPO ANTHEM [employer] CROSS TRADITIONAL [id number] 11/28/2016-Pres ent [address] [place] [address] PPO ANTHEM [employer]OSS [employer]ADITIONAL [id number] 11/28/2016-Pres ent [address] [place] [address] PPO ANTHEM [employer]OSS [employer]ADITIONAL [id number] 11/28/2016-Pres ent [address] [place] [address] PPO ANTHEM [employer]OSS [employer]ADITIONAL [id number] 11/28/2016-Pres ent [address] [place] [address] PPO ANTHEM BL[employer] CROSS TRADITIONAL [id number] 11/28/2016-Pres ent [address] [place] [address] PPO ANTHEM [employer]OSS [employer]ADITIONAL [id number] 11/28/2016-Pres ent [address] [place] [address] PPO ANTHEM [employer]OSS TRADITIONAL [id number] 11/28/2016-Pres ent [address] [place] [address] PPO ANTHEM [employer] CROSS TRADITIONAL [id number] 11/28/2016-Pres ent [address] [place] [address] PPO ANTHEM BLUE CROSS TRADITIONAL [id number] 11/28/2016-Pres ent [address] [place] [address] PPO ANTHEM BLUE CROSS TRADITIONAL [id number] 11/28/2016-Pres ent [address] [place] [address] PPO ANTHEM BL[employer] CROSS TRADITIONAL [id number] 11/28/2016-Pres ent [address] [place] [address] PPO ANTHEM BL[employer] CROSS TRADITIONAL [id number] 11/28/2016-Pres ent [address] [place] [address] PPO ANTHEM BL[employer] CROSS TRADITIONAL [id number] 11/28/2016-Pres ent [address] [place] [address] PPO ANTHEM BLUE CROSS TRADITIONAL [id number] 11/28/2016-Pres ent [address] [place] [address] PPO ANTHEM BLUE CROSS TRADITIONAL [id number] 11/28/2016-Pres ent [address] [place] [address] PPO ANTHEM BLUE CROSS TRADITIONAL [id number] 11/28/2016-Pres ent [address] [place] [address] PPO AETNA AETNA PPO/POS/OA [id number] 01/03/2024-Pre sent [address] [place] [address] PPO Advance Directives * Full Code (Latest [...] 12:44 AM 06/21/2021 7:37 PM Care Teams Credit Analysis Manager Relationship Specialty Start Date End Date [place], Mitchel Nael, DO PCP - General Family Medicine 03/13/19
--- OUTSIDE RECORDS SUMMARY | 2024-11-28 02:01 | XMS_ITS | Encounter Summary ---
Author Organization [facility] Health Address [address] [place] [address] Care Team Providers Care Drapery Hand Name Role Phone Mitchel Garibay Primary Care Provider [phone] Encounter Details Date Type Department Care Team (Late st Contact Info) Description 03/18/2021 11:54 AM CDT Hospital Encounter [facility] [address] [place] [id number] Fabio Gu MD [facility] [address] [place] [phone] [place] [id number] [facility] EXEC[facility]IVE [address] [address] [employer] Social History Tobacco Use Types Packs/Day Years Used Date Smoking Tobacco: Every Day Cigarettes Smokeless Tobacco: Never Comments:1 cigarette Alcohol Use Standard Drinks/Week Comments [...] and heating? Not hard at all 11/23/2024 [facility] - Occupational Stress [...] any time in the past 12 m [facility], were you homeless or living in a assisted (including now)? No 11/23/2024 Sex and Gender Information Value Date Recorded Sex Assigned at Not on file Gender Identity Male 06/20/2021 9:48 PM CDT Sexual Orientation Not on file documented as of this encounter Functional Status Functional Status Response Date of Assess ment Is person deaf or have serious hearing difficult y? No 03/01/2021 Is person blind or have serious difficulty seein g? No 03/01/2021 Does person have serious dif ficulty walking/climbing stairs? No 03/01/2021 Does person have difficulty dressing/bathing? No 03/01/2021 Does person have difficulty doing errands alone? No 03/01/2021 Cognitive Status Response Date of Assessm ent Does person have difficulty concentrating/remembering/making decisions? No 03/01/2021 documented as of this encounter Plan of Treatment Not on file documented as of this encounter Visit Diagnoses Not on filedocumented in this encounter Additional Health Concerns Infection Onset Date Last Indicated Resolved Time MRSA 08/09/2024 08/09/2024 10/02/2024 9:59 AM [facility] MRSA Hx Comment:08/09/24 - wound 10/02/2024 10/02/2024 COVID-19 Under Investigation 11/21/2024 11/21/2024 11/21/2024 12:07 PM [facility] documented as of this encounter Care Teams Drapery Hand Relationship Specialty Start Date End Date Mitchel Garibay DO PCP - General Family Medicine 03/13/19 documented as of this encounter
--- OUTSIDE RECORDS SUMMARY | 2024-11-28 02:02 | XMS_ITS | Referral Summary ---
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 >=60 mL/min/1. 73 m2 Comment: Interpretive Data Reference Interval Normal >/= 90 mL/min/1.73m2 Mildly decreased* 60 - 89 mL/min/1.73m2 Mildly to moderately decreased 45 - 59 mL/min/1.73m2 Moderately to severely decreased 30 - 44 mL/min/1.73m2 Severely decreased 15 - 29 mL/min/1.73m2 Kidney Failure < 15 mL/min/1.73m2 *Relative to young adult level Estimated glomerular filtration rate is determined by the 2020 CKD-EPI equation recommended by the National Kidney Foundation (A Unifying Approach to GFR Estimation: Recommendations of the NKF-ASK Task Force on Reassessing the Inclusion of Race in Diagnosing Kidney Disease, JASN 2020). The CKD-EPI equation should not be used for patients with unstable renal function and has not been validated in children and those over 70. Current interpretive data was last reviewed 2021. Blood 09/15/2024 4:08 AM FREEZER PERSON 09/15/2024 4:25 AM FREEZER PERSON Chaz Nicole MD LAB BLOOD ORDERABL ES Final Result [facility] [address] [facility] Department of Laboratories [place], [place] [id number] * Differential, auto (09/15/2024 4:08 AM FREEZER PERSON) [facility] Neutrophil abs 4.3 1.5 - 6.5 K/cumm Imm gran abs 0.1 0.0 - 0.1 K/cumm [facility] Lymphocyte abs 2.3 0.8 - 3.3 K/cumm [facility] Monocyte abs 0.6 0.2 - 0.8 K/cumm [facility] Eosinophil abs 0.2 0.0 - 0.5 K/cumm [facility] Basophil abs 0.1 0.0 - 0.1 K/cumm [facility] Neutrophil pct 56.6 % [facility] [place] Comment: Interpretive Data Percent cell count reference ranges are not reported, since discordance with absolute values may lead to misinterpretation of CBC data. Current Interpretive Data was last revised on 2018. Imm gran pct 1.8 % [facility] Comment: Interpretive Data Percent cell count reference ranges are not reported, since discordance with absolute values may lead to misinterpretation of CBC data. Current Interpretive Data was last revised on 2018. Lymphocyte pct 30.0 % [facility] Comment: Interpretive Data Percent cell count reference ranges are not reported, since discordance with absolute values may lead to misinterpretation of CBC data. Current Interpretive Data was last revised on 2018. Monocyte pct 8.0 % [facility] Comment: Interpretive Data Percent cell count reference ranges are not reported, since discordance with absolute values may lead to misinterpretation of CBC data. Current Interpretive Data was last revised on 2018. Eosinophil pct 2.7 % [facility] Comment: Interpretive Data Percent cell count reference ranges are not reported, since discordance with absolute values may lead to misinterpretation of CBC data. Current Interpretive Data was last revised on 2018. Basophil pct 0.9 % [facility] Comment: Interpretive Data Percent cell count reference ranges are not reported, since discordance with absolute values may lead to misinterpretation of CBC data. Current Interpretive Data was last revised on 2018. Blood 09/15/2024 4:08 AM FREEZER PERSON 09/15/2024 4:25 AM FREEZER PERSON Chaz Nicole MD LAB BLOOD ORDERABL ES Final Result [facility] [address] [facility] Department [place] [address] * (ABNORMAL) CBC with auto differential (09/15/2024 4:08 AM FREEZER PERSON) WBC 7.7 3.8 - 9.9 K/cumm Hgb 12.4(L) 13.0 - 17.5 g/dL [facility] Hct 35.0(L) 38.9 - 50.3 % [facility] Plt 124(L) 150 - 400 K/cumm [facility] MPV 9.9 9.1 - 12.[address] [facility] RBC 3.82(L) 4.30 - 5.80 M/cumm [facility] MCV 91.6 81.3 - 96.[address] [facility] MCH 32.5 27.1 - 33.[address] [facility] MCHC 35.4 32.3 - 35.7 g/dL [facility] RDW CV 13.8 11.1 - 14.9 % [facility] RDW SD 45.2 35.7 - 48.[address] [facility] NRBC abs 0.03(H) 0.00 - 0.01 K/cumm [facility] Blood 09/15/2024 4:08 AM FREEZER PERSON 09/15/2024 4:25 AM FREEZER PERSON Chaz Nicole MD LAB BLOOD ORDERABL ES Final Result Performing Organization Address City/[facility] Co de Phone Number [address] [place] [address] * Phosphorus (09/15/2024 4:08 AM FREEZER PERSON) Phosphorus, pl 3.6 2.3 - 4.5 mg/dL Blood 09/15/2024 4:08 AM FREEZER PERSON 09/15/2024 4:25 AM FREEZER PERSON Chaz Nicole MD LAB BLOOD ORDERABL ES Final Result Performing Organization Address City/[facility] Co de Phone Number [address] [address] * Magnesium (09/15/2024 4:08 AM FREEZER PERSON) Magnesium 1.5 1.4 - 2.5 mg/dL Blood 09/15/2024 4:08 AM FREEZER PERSON 09/15/2024 4:25 AM FREEZER PERSON Chaz Nicole MD LAB BLOOD ORDERABL ES Final Result Performing Organization Address City/[facility] Co de Phone Number [facility] [address] [facility] Department [place] [address] * (ABNORMAL) Comprehensive metabolic panel (09/15/2024 4:08 AM FREEZER PERSON) Sodium 140 135 - 145 mmol/L Potassium, pl 3.5 3.3 - 4.9 mmol/L [facility] Chloride 106 97 - 110 mmol/L [facility] CO2 23 22 - 32 mmol/L [facility] Anion gap 11 2 - 15 mmol/L [facility] BUN 6 6 - 25 mg/dL [facility] Creatinine 0.82 0.80 - 1.30 mg/dL [facility] Glucose 107 70 - 199 mg/dL [facility] Comment: Interpretive Data Fasting glucose >/= 126 mg/dl is diagnostic for diabetes. Fasting is defined as no caloric intake for at least 8 hours. Fasting glucose between 100 mg/dl to 125 mg/dl is diagnostic of prediabetes. In a patient with classic symptoms of hyperglycemia or hyperglycemic crisis, a random glucose >/= 200 mg/dl is diagnostic for diabetes. In the absence of unequivocal hyperglycemia, results should be confirmed by repeat testing. The classification and Diagnosis of Diabetes Diabetes Care 202; 46: S19-S40. Current interpretive data was last revised 2022. Calcium 9.6 8.5 - 10.3 mg/dL [facility] Bilirubin, total 0.3 0.1 - 1.2 mg/dL [facility] Protein, pl 6.4(L) 6.5 - 8.5 g/dL [facility] Albumin 3.8 3.5 - 5.0 g/dL [facility] Alk phos 61 40 - 130 Units/L [facility] ALT 104(H) 7 - 55 Units/L [facility] AST 135(H) 10 - 50 Units/L [facility] Blood 09/15/2024 4:08 AM FREEZER PERSON 09/15/2024 4:25 AM FREEZER PERSON us Chaz Nicole MD LAB BLOOD ORDERABL ES Final Result Performing Organization Address [facility] Co de Phone Number [facility] [address] [facility] Department [place] [address] * eGFR (09/14/2024 4:59 AM FREEZER PERSON) Pathologist [facility] eGFR >90 >=60 mL/min/1. 73 m2 Comment: Interpretive Data Reference Interval Normal >/= 90 mL/min/1.73m2 Mildly decreased* 60 - 89 mL/min/1.73m2 Mildly to moderately decreased 45 - 59 mL/min/1.73m2 Moderately to severely decreased 30 - 44 mL/min/1.73m2 Severely decreased 15 - 29 mL/min/1.73m2 Kidney Failure < 15 mL/min/1.73m2 *Relative to young adult level Estimated glomerular filtration rate is determined by the 2020 CKD-EPI equation recommended by the National Kidney Foundation (A Unifying Approach to GFR Estimation: Recommendations of the NKF-ASK Task Force on Reassessing the Inclusion of Race in Diagnosing Kidney Disease, JASN 2020). The CKD-EPI equation should not be used for patients with unstable renal function and has not been validated in children and those over 70. Current interpretive data was last reviewed 2021. Blood 09/14/2024 4:59 AM FREEZER PERSON 09/14/2024 5:35 AM FREEZER PERSON Chaz Nicole MD LAB BLOOD ORDERABL ES Final Result [facility] [address] [facility] Department [place] [address] * Differential, auto (09/14/2024 4:59 AM FREEZER PERSON) Pathologist [facility] Neutrophil abs 4.0 1.5 - 6.5 K/cumm Imm gran abs 0.0 0.0 - 0.1 K/cumm [facility] Lymphocyte abs 1.9 0.8 - 3.3 K/cumm [facility] Monocyte abs 0.3 0.2 - 0.8 K/cumm [facility] Eosinophil abs 0.2 0.0 - 0.5 K/cumm [facility] Basophil abs 0.0 0.0 - 0.1 K/cumm [facility] Neutrophil pct 62.6 % [facility] Comment: Interpretive Data Percent cell count reference ranges are not reported, since discordance with absolute values may lead to misinterpretation of CBC data. Current Interpretive Data was last revised on 2018. Imm gran pct 0.6 % [facility] Comment: Interpretive Data Percent cell count reference ranges are not reported, since discordance with absolute values may lead to misinterpretation of CBC data. Current Interpretive Data was last revised on 2018. Lymphocyte pct 29.1 % [facility] Comment: Interpretive Data Percent cell count reference ranges are not reported, since discordance with absolute values may lead to misinterpretation of CBC data. Current Interpretive Data was last revised on 2018. Monocyte pct 4.7 % [facility] Comment: Interpretive Data Percent cell count reference ranges are not reported, since discordance with absolute values may lead to misinterpretation of CBC data. Current Interpretive Data was last revised on 2018. Eosinophil pct 2.5 % [facility] Comment: Interpretive Data Percent cell count reference ranges are not reported, since discordance with absolute values may lead to misinterpretation of CBC data. Current Interpretive Data was last revised on 2018. Basophil pct 0.5 % [facility] Comment: Interpretive Data Percent cell count reference ranges are not reported, since discordance with absolute values may lead to misinterpretation of CBC data. Current Interpretive Data was last revised on 2018. Blood 09/14/2024 4:59 AM FREEZER PERSON 09/14/2024 5:35 AM FREEZER PERSON Chaz Nicole MD LAB BLOOD ORDERABL ES Final Result [facility] [address] [facility] Department of Laboratories [place], [place] [id number] * (ABNORMAL) CBC with auto differential (09/14/2024 4:59 AM FREEZER PERSON) WBC 6.5 3.8 - 9.9 K/cumm Hgb 12.1(L) 13.0 - 17.5 g/dL [facility] Hct 34.4(L) 38.9 - 50.3 % [facility] Plt 121(L) 150 - 400 K/cumm [facility] MPV 10.0 9.1 - 12.[address] [facility] RBC 3.77(L) 4.30 - 5.80 M/cumm [facility] MCV 91.2 81.3 - 96.[address] [facility] MCH 32.1 27.1 - 33.[address] [facility] MCHC 35.2 32.3 - 35.7 g/dL [facility] RDW CV 13.2 11.1 - 14.9 % [facility] RDW SD 43.0 35.7 - 48.[address] [facility] NRBC abs 0.03(H) 0.00 - 0.01 K/cumm [facility] Blood 09/14/2024 4:59 AM FREEZER PERSON 09/14/2024 5:35 AM FREEZER PERSON Chaz Nicole MD LAB BLOOD ORDERABL ES Final Result Performing Organization Address City/[facility] Co de Phone Number [address] [place] [address] * (ABNORMAL) Phosphorus (09/14/2024 4:59 AM FREEZER PERSON) Phosphorus, pl 2.1(L) 2.3 - 4.5 mg/dL Blood 09/14/2024 4:59 AM FREEZER PERSON 09/14/2024 5:35 AM FREEZER PERSON Chaz Nicole MD LAB BLOOD ORDERABL ES Final Result [address] [place] [address] * Magnesium (09/14/2024 4:59 AM FREEZER PERSON) Magnesium 1.6 1.4 - 2.5 mg/dL Blood 09/14/2024 4:59 AM FREEZER PERSON 09/14/2024 5:35 AM FREEZER PERSON Chaz Nicole MD LAB BLOOD ORDERABL ES Final Result [facility] [address] [facility] Department [place] [address] * (ABNORMAL) Comprehensive metabolic panel (09/14/2024 4:59 AM FREEZER PERSON) Sodium 135 135 - 145 mmol/L Potassium, pl 3.5 3.3 - 4.9 mmol/L [facility] Comment:Hemolyzed; Potassium value may be falsely elevated by as much as 1.0 mmol/L. Suggest redraw and reanalysis. Chloride 103 97 - 110 mmol/L [facility] CO2 22 22 - 32 mmol/L [facility] Anion gap 10 2 - 15 mmol/L [facility] BUN 5(L) 6 - 25 mg/dL [facility] Creatinine 0.94 0.80 - 1.30 mg/dL [facility] Glucose 123 70 - 199 mg/dL [facility] Comment: Interpretive Data Fasting glucose >/= 126 mg/dl is diagnostic for diabetes. Fasting is defined as no caloric intake for at least 8 hours. Fasting glucose between 100 mg/dl to 125 mg/dl is diagnostic of prediabetes. In a patient with classic symptoms of hyperglycemia or hyperglycemic crisis, a random glucose >/= 200 mg/dl is diagnostic for diabetes. In the absence of unequivocal hyperglycemia, results should be confirmed by repeat testing. The classification and Diagnosis of Diabetes Diabetes Care 2021; 46: S19-S40. Current interpretive data was last revised 2022. Calcium 9.1 8.5 - 10.3 mg/dL [facility] Bilirubin, total 0.3 0.1 - 1.2 mg/dL [facility] Protein, pl 6.3(L) 6.5 - 8.5 g/dL [facility] Albumin 3.8 3.5 - 5.0 g/dL [facility] Alk phos 69 40 - 130 Units/L [facility] ALT 64(H) 7 - 55 Units/L [facility] AST 100(H) 10 - 50 Units/L [facility] Comment:Hemolyzed; result ma y be falsely elevated Blood 09/14/2024 4:59 AM FREEZER PERSON 09/14/2024 5:35 AM FREEZER PERSON Chaz Nicole MD LAB BLOOD ORDERABL ES Final Result Performing Organization Address [facility] de Phone Number [facility] [address] [place] [address] * eGFR (09/13/2024 3:42 AM FREEZER PERSON) Pathologist [facility] eGFR >90 >=60 mL/min/1. 73 m2 Comment: Interpretive Data Reference Interval Normal >/= 90 mL/min/1.73m2 Mildly decreased* 60 - 89 mL/min/1.73m2 Mildly to moderately decreased 45 - 59 mL/min/1.73m2 Moderately to severely decreased 30 - 44 mL/min/1.73m2 Severely decreased 15 - 29 mL/min/1.73m2 Kidney Failure < 15 mL/min/1.73m2 *Relative to young adult level Estimated glomerular filtration rate is determined by the 2020 CKD-EPI equation recommended by the National Kidney Foundation (A Unifying Approach to GFR Estimation: Recommendations of the NKF-ASK Task Force on Reassessing the Inclusion of Race in Diagnosing Kidney Disease, JASN 2020). The CKD-EPI equation should not be used for patients with unstable renal function and has not been validated in children and those over 70. Current interpretive data was last reviewed 2021. Blood 09/13/2024 3:42 AM FREEZER PERSON 09/13/2024 3:54 AM FREEZER PERSON Chaz Nicole MD LAB BLOOD ORDERABL ES Final Result Performing Organization Address City/[facility]/ZIP Co de Phone Number [facility] [address] [place] [address] * Differential, auto (09/13/2024 3:42 AM FREEZER PERSON) Pathologist [facility] Neutrophil abs 3.0 1.5 - 6.5 K/cumm Imm gran abs 0.0 0.0 - 0.1 K/cumm [facility] Lymphocyte abs 1.8 0.8 - 3.3 K/cumm [facility] Monocyte abs 0.3 0.2 - 0.8 K/cumm [facility] Eosinophil abs 0.1 0.0 - 0.5 K/cumm [facility] Basophil abs 0.0 0.0 - 0.1 K/cumm [facility] Neutrophil pct 57.4 % [facility] Comment: Interpretive Data Percent cell count reference ranges are not reported, since discordance with absolute values may lead to misinterpretation of CBC data. Current Interpretive Data was last revised on 2018. Imm gran pct 0.2 % [facility] Comment: Interpretive Data Percent cell count reference ranges are not reported, since discordance with absolute values may lead to misinterpretation of CBC data. Current Interpretive Data was last revised on 2018. Lymphocyte pct 34.4 % [facility] Comment: Interpretive Data Percent cell count reference ranges are not reported, since discordance with absolute values may lead to misinterpretation of CBC data. Current Interpretive Data was last revised on 2018. Monocyte pct 5.6 % [facility] Comment: Interpretive Data Percent cell count reference ranges are not reported, since discordance with absolute values may lead to misinterpretation of CBC data. Current Interpretive Data was last revised on 2018. Eosinophil pct 1.8 % [facility] Comment: Interpretive Data Percent cell count reference ranges are not reported, since discordance with absolute values may lead to misinterpretation of CBC data. Current Interpretive Data was last revised on 2018. Basophil pct 0.6 % [facility] Comment: Interpretive Data Percent cell count reference ranges are not reported, since discordance with absolute values may lead to misinterpretation of CBC data. Current Interpretive Data was last revised on 2018. Blood 09/13/2024 3:42 AM FREEZER PERSON 09/13/2024 3:55 AM FREEZER PERSON us Chaz Nicole MD LAB BLOOD ORDERABL ES Final Result [facility] [address] [facility] Department [place] [address] * (ABNORMAL) CBC with auto differential (09/13/2024 3:42 AM FREEZER PERSON) WBC 5.1 3.8 - 9.9 K/cumm Hgb 12.6(L) 13.0 - 17.5 g/dL [facility] Hct 34.8(L) 38.9 - 50.3 % [facility] Plt 112(L) 150 - 400 K/cumm [facility] MPV 10.1 9.1 - 12.[address] [facility] RBC 3.84(L) 4.30 - 5.80 M/cumm [facility] MCV 90.6 81.3 - 96.[address] [facility] MCH 32.8 27.1 - 33.[address] [facility] MCHC 36.2(H) 32.3 - 35.7 g/dL [facility] RDW CV 12.9 11.1 - 14.9 % [facility] RDW SD 42.3 35.7 - 48.[address] [facility] NRBC abs 0.00 0.00 - 0.01 K/cumm [facility] Blood 09/13/2024 3:42 AM FREEZER PERSON 09/13/2024 3:55 AM FREEZER PERSON Chaz Nicole MD LAB BLOOD ORDERABL ES Final Result Performing Organization Address City/[facility] Co de Phone Number [address] [place] [address] * Phosphorus (09/13/2024 3:42 AM FREEZER PERSON) Pathologist [facility] Phosphorus, pl 2.3 2.3 - 4.5 mg/dL Blood 09/13/2024 3:42 AM FREEZER PERSON 09/13/2024 3:54 AM FREEZER PERSON Chaz Nicole MD LAB BLOOD ORDERABL ES Final Result Performing Organization Address City/[facility] Co de Phone Number [address] [place] [address] * Magnesium (09/13/2024 3:42 AM FREEZER PERSON) Pathologist [facility] Magnesium 2.0 1.4 - 2.5 mg/dL Blood 09/13/2024 3:42 AM FREEZER PERSON 09/13/2024 3:54 AM FREEZER PERSON Chaz Nicole MD LAB BLOOD ORDERABL ES Final Result [facility] [address] [facility] Department [place] [address] * (ABNORMAL) Comprehensive metabolic panel (09/13/2024 3:42 AM FREEZER PERSON) Pathologist [facility] Sodium 138 135 - 145 mmol/L Potassium, pl 3.6 3.3 - 4.9 mmol/L [facility] Chloride 104 97 - 110 mmol/L [facility] CO2 24 22 - 32 mmol/L [facility] Anion gap 10 2 - 15 mmol/L [facility] BUN 7 6 - 25 mg/dL [facility] Creatinine 0.82 0.80 - 1.30 mg/dL [facility] Glucose 106 70 - 199 mg/dL [facility] Comment: Interpretive Data Fasting glucose >/= 126 mg/dl is diagnostic for diabetes. Fasting is defined as no caloric intake for at least 8 hours. Fasting glucose between 100 mg/dl to 125 mg/dl is diagnostic of prediabetes. In a patient with classic symptoms of hyperglycemia or hyperglycemic crisis, a random glucose >/= 200 mg/dl is diagnostic for diabetes. In the absence of unequivocal hyperglycemia, results should be confirmed by repeat testing. The classification and Diagnosis of Diabetes Diabetes Care 2021; 46: S19-S40. Current interpretive data was last revised 2022. Calcium 9.4 8.5 - 10.3 mg/dL [facility] Bilirubin, total 0.5 0.1 - 1.2 mg/dL [facility] Protein, pl 6.7 6.5 - 8.5 g/dL [facility] Albumin 3.9 3.5 - 5.0 g/dL [facility] Alk phos 69 40 - 130 Units/L [facility] ALT 43 7 - 55 Units/L [facility] AST 69(H) 10 - 50 Units/L [facility] Blood 09/13/2024 3:42 AM FREEZER PERSON 09/13/2024 3:54 AM FREEZER PERSON Chaz Nicole MD LAB BLOOD ORDERABL ES Final Result Performing Organization Address [facility] Co de Phone Number [facility] [place] [address] * Troponin T high-sensitivity 6-hour (09/12/2024 3:52 AM FREEZER PERSON) Trop T hs 6 <=22 ng/L Comment: Interpretive Data For further hscTnT resources including the diagnostic algorithm and an aid in interpretation, copy and paste this link: [email or web address] Current Interpretive Data last revised 2020. Trop T hs delta -1 ng/L [facility] Trop T hs interp Insignificant [facility] Blood 09/12/2024 3:52 AM FREEZER PERSON 09/12/2024 4:50 AM FREEZER PERSON Truong Maloney MD LAB BLOOD ORDERABLES Final Result Performing Organization Address [facility] Co de Phone Number [facility] [place] [address] * Troponin T high-sensitivity 4-hour (09/12/2024 2:22 AM FREEZER PERSON) Trop T hs <6 <=22 ng/L Comment: Interpretive Data For further hscTnT resources including the diagnostic algorithm and an aid in interpretation, copy and paste this link: [email or web address] Current Interpretive Data last revised 2020. Trop T hs delta -1 ng/L [facility] Trop T hs interp Insignificant [facility] Blood 09/12/2024 2:22 AM FREEZER PERSON 09/12/2024 2:32 AM FREEZER PERSON Truong Maloney MD LAB BLOOD ORDERABLES Final Result Performing Organization Address City/[facility]/ZIP Co de Phone Number [facility] [place] [address] * eGFR (09/12/2024 2:22 AM FREEZER PERSON) [facility] eGFR >90 >=60 mL/min/1. 73 m2 Comment: Interpretive Data Reference Interval Normal >/= 90 mL/min/1.73m2 Mildly decreased* 60 - 89 mL/min/1.73m2 Mildly to moderately decreased 45 - 59 mL/min/1.73m2 Moderately to severely decreased 30 - 44 mL/min/1.73m2 Severely decreased 15 - 29 mL/min/1.73m2 Kidney Failure < 15 mL/min/1.73m2 *Relative to young adult level Estimated glomerular filtration rate is determined by the 2020 CKD-EPI equation recommended by the National Kidney Foundation (A Unifying Approach to GFR Estimation: Recommendations of the NKF-ASK Task Force on Reassessing the Inclusion of Race in Diagnosing Kidney Disease, JASN 2020). The CKD-EPI equation should not be used for patients with unstable renal function and has not been validated in children and those over 70. Current interpretive data was last reviewed 2021. Blood 09/12/2024 2:2 2 AM FREEZER PERSON 09/12/2024 2:32 AM FREEZER PERSON Truong Maloney MD LAB BLOOD ORDERABLES Final Result [facility] [address] [facility] Department [place] [address] * Differential, auto (09/12/2024 2:22 AM FREEZER PERSON) Pathologist [facility] Neutrophil abs 4.0 1.5 - 6.5 K/cumm Imm gran abs 0.0 0.0 - 0.1 K/cumm [facility] Lymphocyte abs 1.6 0.8 - 3.3 K/cumm [facility] Monocyte abs 0.4 0.2 - 0.8 K/cumm [facility] Eosinophil abs 0.0 0.0 - 0.5 K/cumm [facility] Basophil abs 0.0 0.0 - 0.1 K/cumm [facility] Neutrophil pct 65.5 % [facility] Comment: Interpretive Data Percent cell count reference ranges are not reported, since discordance with absolute values may lead to misinterpretation of CBC data. Current Interpretive Data was last revised on 2018. Imm gran pct 0.3 % [facility] Comment: Interpretive Data Percent cell count reference ranges are not reported, since discordance with absolute values may lead to misinterpretation of CBC data. Current Interpretive Data was last revised on 2018. Lymphocyte pct 26.5 % [facility] Comment: Interpretive Data Percent cell count reference ranges are not reported, since discordance with absolute values may lead to misinterpretation of CBC data. Current Interpretive Data was last revised on 2018. Monocyte pct 6.7 % [facility] Comment: Interpretive Data Percent cell count reference ranges are not reported, since discordance with absolute values may lead to misinterpretation of CBC data. Current Interpretive Data was last revised on 2018. Eosinophil pct 0.3 % [facility] Comment: Interpretive Data Percent cell count reference ranges are not reported, since discordance with absolute values may lead to misinterpretation of CBC data. Current Interpretive Data was last revised on 2018. Basophil pct 0.7 % [facility] Comment: Interpretive Data Percent cell count reference ranges are not reported, since discordance with absolute values may lead to misinterpretation of CBC data. Current Interpretive Data was last revised on 2018. Blood 09/12/2024 2:22 AM FREEZER PERSON 09/12/2024 2:32 AM FREEZER PERSON Truong Maloney MD LAB BLOOD ORDERABLES Final Result [facility] [id number] [facility] Department [place] [address] * (ABNORMAL) CBC with auto differential (09/12/2024 2:22 AM FREEZER PERSON) WBC 6.2 3.8 - 9.9 K/cumm Hgb 12.3(L) 13.0 - 17.5 g/dL [facility] Hct 34.2(L) 38.9 - 50.3 % [facility] Plt 118(L) 150 - 400 K/cumm [facility] MPV 10.3 9.1 - 12.[address] [facility] RBC 3.85(L) 4.30 - 5.80 M/cumm [facility] MCV 88.8 81.3 - 96.[address] [facility] MCH 31.9 27.1 - 33.[address] [facility] MCHC 36.0(H) 32.3 - 35.7 g/dL [facility] RDW CV 12.8 11.1 - 14.9 % [facility] RDW SD 41.4 35.7 - 48.[address] [facility] NRBC abs 0.02(H) 0.00 - 0.01 K/cumm [facility] Blood 09/12/2024 2:22 AM FREEZER PERSON 09/12/2024 2:32 AM FREEZER PERSON Truong Maloney MD LAB BLOOD ORDERABLES Final Result Performing Organization Address City/State/[facility] Co de Phone Number [facility] [address] [facility] Department [place] [address] * (ABNORMAL) Comprehensive metabolic panel (09/12/2024 2:22 AM FREEZER PERSON) Sodium 139 135 - 145 mmol/L Potassium, pl 3.8 3.3 - 4.9 mmol/L [facility] Chloride 106 97 - 110 mmol/L [facility] CO2 23 22 - 32 mmol/L [facility] Anion gap 10 2 - 15 mmol/L [facility] BUN 5(L) 6 - 25 mg/dL [facility] Creatinine 0.80 0.80 - 1.30 mg/dL [facility] Glucose 82 70 - 199 mg/dL [facility] Comment: Interpretive Data Fasting glucose >/= 126 mg/dl is diagnostic for diabetes. Fasting is defined as no caloric intake for at least 8 hours. Fasting glucose between 100 mg/dl to 125 mg/dl is diagnostic of prediabetes. In a patient with classic symptoms of hyperglycemia or hyperglycemic crisis, a random glucose >/= 200 mg/dl is diagnostic for diabetes. In the absence of unequivocal hyperglycemia, results should be confirmed by repeat testing. The classification and Diagnosis of Diabetes Diabetes Care 202; 46: S19-S40. Current interpretive data was last revised 2022. Calcium 8.8 8.5 - 10.3 mg/dL [facility] Bilirubin, total 1.0 0.1 - 1.2 mg/dL [facility] Protein, pl 6.2(L) 6.5 - 8.5 g/dL [facility] Albumin 3.8 3.5 - 5.0 g/dL [facility] Alk phos 71 40 - 130 Units/L [facility] ALT 46 7 - 55 Units/L [facility] AST 82(H) 10 - 50 Units/L [facility] Blood 09/12/2024 2:22 AM FREEZER PERSON 09/12/2024 2:32 AM FREEZER PERSON Truong Maloney MD LAB BLOOD ORDERABLES Final Result Performing Organization Address [facility] Co de Phone Number [address] [employer] [place], [place] [id number] * Troponin T high-sensitivity 2-hour (09/11/2024 11:42 PM FREEZER PERSON) Trop T hs 7 <=22 ng/L Comment: Interpretive Data For further hscTnT resources including the diagnostic algorithm and an aid in interpretation, copy and paste this link: https://nrl.testcatalog.org/show/hsTrop Current Interpretive Data last revised 2020. Trop T hs delta 0 ng/L [facility] Trop T hs interp Insignificant [facility] Blood 09/11/2024 11:4 2 PM FREEZER PERSON 09/12/2024 12:25 AM FREEZER PERSON Truong Maloney MD LAB BLOOD ORDERABLES Final Result Performing Organization Address City/[facility] Co de Phone Number [address] [place] [address] * Troponin T high-sensitivity series (baseline, 2hr, 4hr, 6hr) (09/11/2024 9:31 PM FREEZER PERSON) Trop T hs 7 <=22 ng/L Comment: Interpretive Data For further hscTnT resources including the diagnostic algorithm and an aid in interpretation, copy and paste this link: https://nrl.testcatalog.org/show/hsTrop Current Interpretive Data last revised 2020. Blood 09/11/2024 9:31 PM FREEZER PERSON 09/11/2024 9:34 PM FREEZER PERSON Truong Maloney MD LAB BLOOD ORDERABLES Final Result Performing Organization Address City/[facility]/ZIP Co de Phone Number [facility] [address] [facility] Department [place] [address] * ECG 12 lead (09/11/2024 9:19 PM FREEZER PERSON) Ventricular Rate EKG/Min 98 BPM [facility] Atrial Rate 98 BPM [facility] [place]-Interval (MSEC) 136 ms [facility] QRS-Interval (MSEC) 84 ms [facility] QT-Interval (MSEC) 372 ms [facility] QTc 474 ms [facility] P Clark 71 degrees [facility] R Clark 55 degrees [facility] T Clark 29 degrees [facility] Diagnosis Normal sinus rhythm Normal ECG When compared with ECG of 10-SEP-2024 12:51, No significant change was found Confirmed by JAMIR WOLF M.D. ([id number]) on 09/15/2024 9:53:32 AM [facility] 09/11/2024 9:19 PM FREEZER PERSON 09/15/2024 9:53 AM FREEZER PERSON Truong Maloney MD ECG ORDERABLES Alice l Result Performing Organization Address City/[facility]/ZIP Co de Phone Number [facility] * (ABNORMAL) Urinalysis reflex to microscopic and culture Urine (09/11/2024 1:10 PM FREEZER PERSON) Color, ur Yellow Yellow Clarity, ur Clear Clear [facility] Specific gravity, ur 1.005 1.003 - 1.030 [facility] pH, urine 6.5 [facility] Comment: Interpretive Data U rine pH is affected by diet, medications, systemic acid-base disturbances, and renal tubular function. pH may affect urinary stone formation. For example, urine pH below 6.0 may help reduce the tendency for calcium phosphate stones and pH greater than 6.0 may reduce the tendency for uric acid stone formation. Source: [facility] Current Interpretive Data was last revised on 2017 Protein, ur ql 1+(A) Negative [facility] Glucose, ur ql Negative Negative [facility] Ketones, ur Negative Negative [facility] Bilirubin, ur Negative Negative [facility] Blood, ur Negative Negative [facility] Urobilinogen, ur 2.0(A) <2.0 mg/dL [facility] Nitrite, ur Negative Negative [facility] Leukocyte esterase, ur Negative Negative [facility] UA reflex comment Reflex to microscopic UA will be performed. [facility] Urine 09/11/2024 1:10 PM FREEZER PERSON 09/11/2024 1:13 PM FREEZER PERSON Ginger PELLETIER LAB MICROBIOLOGY - GENERAL ORDERABLES Final Result [facility] [address] [facility] Department [place] [address] * (ABNORMAL) Drugs of Abuse Screen, Urine without Confirmation (09/11/2024 1:10 PM FREEZER PERSON) Amphetamine, ur Not Detected CutOff 500ng/mL Comment: Interpretive Data - Amphetamines: Samples containing greater than 500 ng/mL d-methamphetamine or other cross-reacting amphetamine compounds are reported as positive. Amphetamine immunoassays are subject to significant false positive rates due to cross-reactivity of non-amphetamine drugs. Confirmatory testing required for definitive results. Current Interpretive Data was last reviewed 2023. Barbiturates, ur Not Detected CutOff 200ng/mL [facility] Comment: Interpretive Data - Barbiturates: Samples containing greater than 200 ng/mL secobarbital or other cross-reacting barbiturate compounds are reported as positive. False positive and false negative results are possible. Confirmatory testing required for definitive results. Current Interpretive Data was last reviewed 2023. Benzodiazepines, ur Screen Positive, presumptive (A) CutOff 100ng/mL [facility] Comment: Interpretive Data - Benzodiazepines: Samples containing greater than 100 ng/mL nordiazepam or other cross-reacting compounds are reported as positive. False positive and false negative results are possible. Confirmatory testing required for definitive results. Current Interpretive Data was last reviewed 2023. Cannabinoids, ur Screen Positive, presumptive (A) CutOff 50 ng/mL [facility] Comment: Interpretive Data - Cannabinoids: Samples containing greater than 50 ng/mL delta-9 THC -COOH or other cross- reacting compounds are reported as positive. False positive and false negative results are possible. Confirmatory testing required for definitive results. Current Interpretive Data was last reviewed 2023. Cocaine, ur Not Detected CutOff 150ng/mL [facility] Comment: Interpretive Data - Cocaine: Samples containing greater than 150 ng/mL benzoylecgonine or other cross- reacting compounds are reported as positive. False positive and false negative results are possible. Confirmatory testing required for definitive results. Current Interpretive Data was last reviewed 2023. Fentanyl, Ur Not Detected CutOff 5 ng/mL [facility] Comment: Interpretive Data - Fentanyl: Samples containing greater than 5 ng/mL norfentanyl, fentanyl, or other cross-reacting fentanyl compounds are reported as positive. False positive and false negative results are possible. Confirmatory testing required for definitive results. Current Interpretive Data was last reviewed 2023. Methadone, ur Not Detected CutOff 300ng/mL [facility] Comment: Interpretive Data - Methadone: Samples containing greater than 300 ng/mL d,l-methadone or other cross-reacting compounds are reported as positive. False positive and false negative results are possible. Confirmatory testing required for definitive results. Current Interpretive Data was last reviewed 2023. Opiates, ur Not Detected CutOff 300ng/mL [facility] Comment: Interpretive Data - Opiates: Samples containing greater than 300 ng/mL morphine or other cross-reacting compounds are reported as positive. False positive and false negative results are possible. Confirmatory testing required for definitive results. Current Interpretive Data was last reviewed 2023. Oxycodone, ur Not Detected CutOff 100ng/mL [facility] Comment: Interpretive Data - Oxycodone: Samples containing greater than 100 ng/mL oxycodone or other cross-reacting compounds are reported as positive. False positive and false negative results are possible. Confirmatory testing required for definitive results. Current Interpretive Data was last reviewed 2023. Phencyclidine, ur Not Detected CutOff 25 ng/mL [facility] Comment: Interpretive Data - Phencyclidine: Samples containing greater than 25 ng/mL phencyclidine or other cross-reacting compounds are reported as positive. False positive and false negative results are possible. Confirmatory testing required for definitive results. Current Interpretive Data was last reviewed 2023. Urine Creatinine 45 mg/dL [facility] Comment: Interpretive Data Urine Creatinine: < 10 mg/dL is extremely dilute = or > 10 but < 20 mg/dL is dilute = or > 20 mg/dL is normal Current Interpretive Data was last revised on 2017. Urine 09/11/2024 1:10 PM FREEZER PERSON 09/11/2024 1:13 PM FREEZER PERSON Narrative [facility] - 09/11/2024 1:40 PM FREEZER PERSON Drug of Abuse screening is performed by immunoassay for medical purposes only. This is not to be used for Pain Management purposes. [employer] Ener1lade Adesida PA LAB URINE ORDERABL ES Final Result Performing Organization Address City/[facility] Co de Phone Number [address] [place] [address] * (ABNORMAL) Urinalysis, microscopic only (09/11/2024 1:10 PM FREEZER PERSON) WBC, ur 0-5 0 - 5 /HPF RBC, ur 0-2 0 - 2 /HPF [facility] Epithelial cells, squamous, ur 1-5 0 - 5 /HPF [facility] Mucous, ur Present(A) [facility] Amorphous crystals, ur Trace(A) [facility] Culture Reflex Comment Reflex conditions for urine culture (WBC >10) not met. [facility] Urine 09/11/2024 1:10 PM FREEZER PERSON 09/11/2024 1:13 PM FREEZER PERSON IdealSeatlade Adesida PA LAB URINE ORDERABL ES Final Result Performing Organization Address City/[facility] Co de Phone Number [facility] [address] Department [place] [address] * eGFR (09/11/2024 1:03 PM FREEZER PERSON) [facility] eGFR >90 >=60 mL/min/1. 73 m2 Comment: Interpretive Data Reference Interval Normal >/= 90 mL/min/1.73m2 Mildly decreased* 60 - 89 mL/min/1.73m2 Mildly to moderately decreased 45 - 59 mL/min/1.73m2 Moderately to severely decreased 30 - 44 mL/min/1.73m2 Severely decreased 15 - 29 mL/min/1.73m2 Kidney Failure < 15 mL/min/1.73m2 *Relative to young adult level Estimated glomerular filtration rate is determined by the 2020 CKD-EPI equation recommended by the National Kidney Foundation (A Unifying Approach to GFR Estimation: Recommendations of the NKF-ASK Task Force on Reassessing the Inclusion of Race in Diagnosing Kidney Disease, JASN 2020). The CKD-EPI equation should not be used for patients with unstable renal function and has not been validated in children and those over 70. Current interpretive data was last reviewed 2021. Blood 09/11/2024 1:03 PM FREEZER PERSON 09/11/2024 1:05 PM FREEZER PERSON Ginger PELLETIER LAB BLOOD ORDERABL ES Final Result [facility] [address] [place] [address] * Differential, auto (09/11/2024 1:03 PM FREEZER PERSON) [facility] Neutrophil abs 3.6 1.5 - 6.5 K/cumm Imm gran abs 0.0 0.0 - 0.1 K/cumm [facility] Lymphocyte abs 1.3 0.8 - 3.3 K/cumm [facility] Monocyte abs 0.3 0.2 - 0.8 K/cumm [facility] Eosinophil abs 0.0 0.0 - 0.5 K/cumm [facility] Basophil abs 0.1 0.0 - 0.1 K/cumm [facility] Neutrophil pct 67.8 % [facility] Comment: Interpretive Data Percent cell count reference ranges are not reported, since discordance with absolute values may lead to misinterpretation of CBC data. Current Interpretive Data was last revised on 2018. Imm gran pct 0.2 % [facility] Comment: Interpretive Data Percent cell count reference ranges are not reported, since discordance with absolute values may lead to misinterpretation of CBC data. Current Interpretive Data was last revised on 2018. Lymphocyte pct 24.3 % [facility] Comment: Interpretive Data Percent cell count reference ranges are not reported, since discordance with absolute values may lead to misinterpretation of CBC data. Current Interpretive Data was last revised on 2018. Monocyte pct 6.5 % [facility] Comment: Interpretive Data Percent cell count reference ranges are not reported, since discordance with absolute values may lead to misinterpretation of CBC data. Current Interpretive Data was last revised on 2018. Eosinophil pct 0.2 % [facility] Comment: Interpretive Data Percent cell count reference ranges are not reported, since discordance with absolute values may lead to misinterpretation of CBC data. Current Interpretive Data was last revised on 2018. Basophil pct 1.0 % [facility] Comment: Interpretive Data Percent cell count reference ranges are not reported, since discordance with absolute values may lead to misinterpretation of CBC data. Current Interpretive Data was last revised on 2018. Blood 09/11/2024 1:03 PM FREEZER PERSON 09/11/2024 1:05 PM FREEZER PERSON Ginger PELLETIER LAB BLOOD ORDERABL ES Final Result [facility] [address] [facility] Department [place] [address] * (ABNORMAL) CBC with auto differential (09/11/2024 1:03 PM FREEZER PERSON) WBC 5.2 3.8 - 9.9 K/cumm Hgb 14.3 13.0 - 17.5 g/dL [facility] Hct 39.6 38.9 - 50.3 % [facility] Plt 146(L) 150 - 400 K/cumm [facility] MPV 9.8 9.1 - 12.[address] [facility] RBC 4.55 4.30 - 5.80 M/cumm [facility] MCV 87.0 81.3 - 96.[address] [facility] MCH 31.4 27.1 - 33.[address] [facility] MCHC 36.1(H) 32.3 - 35.7 g/dL [facility] RDW CV 12.4 11.1 - 14.9 % [facility] RDW SD 39.7 35.7 - 48.[address] [facility] NRBC abs 0.00 0.00 - 0.01 K/cumm [facility] Blood 09/11/2024 1:03 PM FREEZER PERSON 09/11/2024 1:05 PM FREEZER PERSON Adebowale Tolulade Adesida PA LAB BLOOD ORDERABL ES Final Result Performing Organization Address [facility] de Phone Number [address] [place] [address] * Phosphorus (09/11/2024 1:03 PM FREEZER PERSON) Phosphorus, pl 2.4 2.3 - 4.5 mg/dL Blood 09/11/2024 1:03 PM FREEZER PERSON 09/11/2024 1:05 PM FREEZER PERSON Adebowale Tolulade Adesida PA LAB BLOOD ORDERABL ES Final Result Performing Organization Address [facility] de Phone Number [address] [address] * Magnesium (09/11/2024 1:03 PM FREEZER PERSON) Magnesium 1.6 1.4 - 2.5 mg/dL Blood 09/11/2024 1:03 PM FREEZER PERSON 09/11/2024 1:05 PM FREEZER PERSON Adebowale Tolulade Adesida PA LAB BLOOD ORDERABL ES Final Result Performing Organization Address [facility] de Phone Number [facility] [facility] [address] [facility] [place] [address] * (ABNORMAL) Ethanol (09/11/2024 1:03 PM FREEZER PERSON) Pathologist [facility] Ethanol 84(H) <=10 mg/dL Comment: Interpretive Data Legal limit of intoxication > or = 80 mg/dL Levels > or = 400 mg/dL are potentially TOXIC. Current interpretive data was last revised on 2018. Blood 09/11/2024 1:03 PM FREEZER PERSON 09/11/2024 1:05 PM FREEZER PERSON Ginger PELLETIER LAB BLOOD ORDERABL ES Final Result Performing Organization Address [facility] de Phone Number AIDA[address] [address] * (ABNORMAL) Comprehensive metabolic panel (09/11/2024 1:03 PM FREEZER PERSON) [facility] Sodium 136 135 - 145 mmol/L Potassium, pl 3.0(L) 3.3 - 4.9 mmol/L [facility] Chloride 95(L) 97 - 110 mmol/L [facility] CO2 20(L) 22 - 32 mmol/L [facility] Anion gap 21(H) 2 - 15 mmol/L [facility] BUN 5(L) 6 - 25 mg/dL [facility] Creatinine 0.79(L) 0.80 - 1.30 mg/dL [facility] Glucose 113 70 - 199 mg/dL [facility] Comment: Interpretive Data Fasting glucose >/= 126 mg/dl is diagnostic for diabetes. Fasting is defined as no caloric intake for at least 8 hours. Fasting glucose between 100 mg/dl to 125 mg/dl is diagnostic of prediabetes. In a patient with classic symptoms of hyperglycemia or hyperglycemic crisis, a random glucose >/= 200 mg/dl is diagnostic for diabetes. In the absence of unequivocal hyperglycemia, results should be confirmed by repeat testing. The classification and Diagnosis of Diabetes Diabetes Care 202; 46: S19-S40. Current interpretive data was last revised 2022. Calcium 10.0 8.5 - 10.3 mg/dL [facility] Bilirubin, total 1.1 0.1 - 1.2 mg/dL [facility] Protein, pl 8.2 6.5 - 8.5 g/dL [facility] Albumin 4.7 3.5 - 5.0 g/dL [facility] Alk phos 94 40 - 130 Units/L [facility] ALT 72(H) 7 - 55 Units/L [facility] AST 158(H) 10 - 50 Units/L [facility] Blood 09/11/2024 1:03 PM FREEZER PERSON 09/11/2024 1:05 PM FREEZER PERSON us Ginger PELLETIER LAB BLOOD ORDERABL ES Final Result Performing Organization Address City/[facility] Co de Phone Number [facility] [address] [facility] Department of Laboratories [place] [address] * ECG 12 lead (09/10/2024 12:51 PM FREEZER PERSON) Pathologist [facility] Ventricular Rate EKG/Min 119 BPM [facility] Atrial Rate 119 BPM [facility] [place]-Interval (MSEC) 134 ms [facility] QRS-Interval (MSEC) 84 ms [facility] QT-Interval (MSEC) 306 ms [facility] QTc 430 ms [facility] P Clark 64 degrees [facility] R Clark 31 degrees [facility] T Clark 33 degrees [facility] Diagnosis Sinus tachycardia Possible Left atrial enlargement When compared with ECG of 05-OCT-2023 08:44, No significant change was found Confirmed by SULTAN GALLAGHER M.D. ([id number]) on 09/10/2024 4:41:17 PM [facility] 09/10/2024 12:5 1 PM FREEZER PERSON 09/10/2024 4:41 PM FREEZER PERSON us Jose Carlos Kenyon DO ECG ORDERABLES Final Resul t Performing Organization Address City/[facility] Co de Phone Number [facility] * eGFR (09/10/2024 12:41 PM FREEZER PERSON) Pathologist [facility] eGFR >90 >=60 mL/min/1. 73 m2 Comment: Interpretive Data Reference Interval Normal >/= 90 mL/min/1.73m2 Mildly decreased* 60 - 89 mL/min/1.73m2 Mildly to moderately decreased 45 - 59 mL/min/1.73m2 Moderately to severely decreased 30 - 44 mL/min/1.73m2 Severely decreased 15 - 29 mL/min/1.73m2 Kidney Failure < 15 mL/min/1.73m2 *Relative to young adult level Estimated glomerular filtration rate is determined by the 2020 CKD-EPI equation recommended by the National Kid[employer] (A Unifying Approach to GFR Estimation: Recommendations of the NKF-ASK Task Force on Reassessing the Inclusion of Race in Diagnosing Kidney Disease, JASN 2020). The CKD-EPI equation should not be used for patients with unstable renal function and has not been validated in children and those over 70. Current interpretive data was last reviewed 2021. Testing performed by: [address] [address] Blood 09/10/2024 12:4 1 PM FREEZER PERSON 09/10/2024 12:50 PM FREEZER PERSON us Jose Carlos Kenyon DO LAB BLOOD ORDERABLES Final Result [facility] [address] [facility] Department [place] [address] * Differential, auto (09/10/2024 12:41 PM FREEZER PERSON) Neutrophil abs 4.4 1.5 - 6.5 K/cumm Comment:Testing performed by : [address] [address] Imm gran abs 0.0 0.0 - 0.1 K/cumm [facility] Comment:Testing performed by : [address] [address] Lymphocyte abs 2.2 0.8 - 3.3 K/cumm [facility] Comment:Testing performed by : [address] [address] Monocyte abs 0.3 0.2 - 0.8 K/cumm [facility] Comment:Testing performed by : [address] [address] Eosinophil abs 0.0 0.0 - 0.5 K/cumm [facility] Comment:Testing performed by : [address] [address] Basophil abs 0.1 0.0 - 0.1 K/cumm [facility] Comment:Testing performed by : [address] [address] Neutrophil pct 62.8 % [facility] Comment: Interpretive Data Percent cell count reference ranges are not reported, since discordance with absolute values may lead to misinterpretation of CBC data. Current Interpretive Data was last revised on 2018. Testing performed by: [address] [address] Imm gran pct 0.1 % [facility] Comment: Interpretive Data Percent cell count reference ranges are not reported, since discordance with absolute values may lead to misinterpretation of CBC data. Current Interpretive Data was last revised on 2018. Testing performed by: [address] [address] Lymphocyte pct 31.6 % [facility] Comment: Interpretive Data Percent cell count reference ranges are not reported, since discordance with absolute values may lead to misinterpretation of CBC data. Current Interpretive Data was last revised on 2018. Testing performed by: [address] [address] Monocyte pct 4.5 % [facility] Comment: Interpretive Data Percent cell count reference ranges are not reported, since discordance with absolute values may lead to misinterpretation of CBC data. Current Interpretive Data was last revised on 2018. Testing performed by: [address] [address] Eosinophil pct 0.0 % [facility] Comment: Interpretive Data Percent cell count reference ranges are not reported, since discordance with absolute values may lead to misinterpretation of CBC data. Current Interpretive Data was last revised on 2018. Testing performed by: [address] [address] Basophil pct 1.0 % [facility] Comment: Interpretive Data Percent cell count reference ranges are not reported, since discordance with absolute values may lead to misinterpretation of CBC data. Current Interpretive Data was last revised on 2018. Testing performed by: [address] [address] Blood 09/10/2024 12:4 1 PM FREEZER PERSON 09/10/2024 12:50 PM FREEZER PERSON Jose Carlos Kenyon LAB BLOOD ORDERABLES Final Result Performing Organization Address [facility] de Phone Number [id number] [address] * Thyroid Function [place] (09/10/2024 12:41 PM FREEZER PERSON) Pathologist [facility] TSH 0.52 0.30 - 4.20 mcIUnit/mL Comment:Testing performed by : [address] [address] Blood 09/10/2024 12:4 1 PM FREEZER PERSON 09/10/2024 12:50 PM FREEZER PERSON Jose Carlos Kenyon DO LAB BLOOD ORDERABLES Final Result Performing Organization Address [facility] de Phone Number [address] [address] * (ABNORMAL) CBC with auto differential (09/10/2024 12:41 PM FREEZER PERSON) Pathologist [facility] WBC 7.1 3.8 - 9.9 K/cumm Comment:Testing performed by : [address] [address] Hgb 16.2 13.0 - 17.5 g/dL [facility] Comment:Testing performed by : [address] [address] Hct 44.0 38.9 - 50.3 % [facility] Comment:Testing performed by : [address] [address] Plt 220 150 - 400 K/cumm [facility] Comment:Testing performed by : [address] [place]., [address] MPV 9.3 9.1 - 12.3 fL [facility] Comment:Testing performed by : [address] [address] RBC 5.02 4.30 - 5.80 M/cumm [facility] Comment:Testing performed by : [address] [address] MCV 87.6 81.3 - 96.4 fL [facility] Comment:Testing performed by : [address] [address] MCH 32.3 27.1 - 33.3 pg [facility] Comment:Testing performed by : [address] [address] MCHC 36.8(H) 32.3 - 35.7 g/dL [facility] Comment:Testing performed by : [address], [address] RDW CV 12.8 11.1 - 14.9 % [facility] Comment:Testing performed by : [address], [address] RDW SD 41.2 35.7 - 48.1 fL [facility] Comment:Testing performed by : [address] [address] NRBC abs 0.03(H) 0.00 - 0.01 K/cumm [facility] Comment:Testing performed by : [address] [address] Blood Venous blood specimen / Unknown 09/10/2024 12:41 PM FREEZER PERSON 09/10/2024 12:50 PM FREEZER PERSON us Jose Carlos Kenyon DO LAB BLOOD ORDERABLES Final Result [facility] [address] [facility] Department of Laboratories [place], [place] [id number] * (ABNORMAL) Ethanol (09/10/2024 12:41 PM FREEZER PERSON) Ethanol 299(H) <=10 mg/dL Comment: Interpretive Data Legal limit of intoxication > or = 80 mg/dL Levels > or = 400 mg/dL are potentially TOXIC. Current interpretive data was last revised on 2018. Testing performed by: [address] [address] Blood 09/10/2024 12:4 1 PM FREEZER PERSON 09/10/2024 12:50 PM FREEZER PERSON Jose Carlos Kenyon DO LAB BLOOD ORDERABLES Final Result Performing Organization Address [facility] Co de Phone Number [facility] [address] [facility] [place] [address] * Acetaminophen level (09/10/2024 12:41 PM FREEZER PERSON) Acetaminophen <5 <=5 mcg/mL Comment: Interpretive Data Significant hepatic injury may occur and treatment with n-acetyl cysteine is generally recommended if the acetaminophen level exceeds: 150 mcg/mL at 4 hours after ingestion 75 mcg/mL at 8 hours after ingestion 38 mcg/mL at 12 hours after ingestion 19 mcg/mL at 16 hours after ingestion Consult toxicology or poison control ([phone]) for unknown ingestion time. Current interpretive data was last revised 2023. Testing performed by: [address] [address] Blood 09/10/2024 12:4 1 PM FREEZER PERSON 09/10/2024 12:50 PM FREEZER PERSON Jose Carlos Kenyon DO LAB BLOOD ORDERABLES Final Result Performing Organization Address [facility] Co de Phone Number [facility] [address] [facility] [place] [address] * Salicylate level (09/10/2024 12:41 PM FREEZER PERSON) Salicylate <1.0 <=1.0 mg/dL Comment: Interpretive Data Toxic: 30 mg/dL or greater. Current interpretive data was last revised 2023. Testing performed by: [address] [address] Blood 09/10/2024 12:4 1 PM FREEZER PERSON 09/10/2024 12:50 PM FREEZER PERSON us Jose Carlos Kenyon DO LAB BLOOD ORDERABLES Final Result [facility] [address] [facility] Department [place] [address] * (ABNORMAL) Comprehensive metabolic panel (09/10/2024 12:41 PM FREEZER PERSON) Sodium 139 135 - 145 mmol/L Comment:Testing performed by : [address] [address] Potassium, pl 3.4 3.3 - 4.9 mmol/L [facility] Comment:Testing performed by : [address] [address] Chloride 96(L) 97 - 110 mmol/L [facility] Comment:Testing performed by : [address] [address] CO2 22 22 - 32 mmol/L [facility] Comment:Testing performed by : [address] [address] Anion gap 21(H) 2 - 15 mmol/L [facility] Comment:Testing performed by : [address] [address] BUN 6 6 - 25 mg/dL [facility] Comment:Testing performed by : [address] [address] Creatinine 0.80 0.80 - 1.30 mg/dL [facility] Comment:Testing performed by : [address] [address] Glucose 170 70 - 199 mg/dL [facility] Comment: Interpretive Data Fasting glucose >/= 126 mg/dl is diagnostic for diabetes. Fasting is defined as no caloric intake for at least 8 hours. Fasting glucose between 100 mg/dl to 125 mg/dl is diagnostic of prediabetes. In a patient with classic symptoms of hyperglycemia or hyperglycemic crisis, a random glucose >/= 200 mg/dl is diagnostic for diabetes. In the absence of unequivocal hyperglycemia, results should be confirmed by repeat testing. The classification and Diagnosis of Diabetes Diabetes Care 202; 46: S19-S40. Current interpretive data was last revised 2022. Testing performed by: [address] [address] Calcium 9.6 8.5 - 10.3 mg/dL [facility] Comment:Testing performed by : [address] [address] Bilirubin, total 0.5 0.1 - 1.2 mg/dL [facility] Comment:Testing performed by : [address] [address] Protein, pl 8.8(H) 6.5 - 8.5 g/dL [facility] Comment:Testing performed by : [address] [address] Albumin 4.9 3.5 - 5.0 g/dL [facility] Comment:Testing performed by : [address] [address] Alk phos 98 40 - 130 Units/L [facility] Comment:Testing performed by : [address] [address] ALT 63(H) 7 - 55 Units/L [facility] Comment:Testing performed by : [address] [address] AST 116(H) 10 - 50 Units/L [facility] Comment:Testing performed by : [address] [address] Blood 09/10/2024 12:4 1 PM FREEZER PERSON 09/10/2024 12:50 PM FREEZER PERSON us Jose Carlos Kenyon DO LAB BLOOD ORDERABLES Final Result [facility] [address] [facility] Department [place] [address] * Hepatitis panel, acute Blood (10/05/2023 7:18 PM FREEZER PERSON) Hep A IgM Nonreactive Nonreactive [facility] Comment: Interpretive Data: If Hep A IgM Ab is reported as Equivocal, a new sample should be drawn in two weeks for testing. Current interpretive data was last revised on 19. Hep B core IgM Nonreactive Nonreactive [facility] Comment: Interpretive Data If HepB Core IgM Ab is reported as Equivocal, a new sample should be drawn in two weeks for testing. Current interpretive data was last revised on 19. Hep C Ab Nonreactive Nonreactive [facility] Comment: Antibodies to HCV not detected. Does NOT exclude the possibility of recent exposure to HCV. Current interpretive data was last revised on 22 Interpretive Data Nonreactive: Antibodies to HCV not detected. Does NOT exclude the possibility of recent exposure to HCV. Equivocal: Equivocal for HCV antibodies. Supplemental molecular testing will be automatically performed to determine infection status in accordance with current CDC screening recommendations. Reactive: Positive for HCV antibodies. This may represent current or past HCV infection. Supplemental molecular testing will be automatically performed to determine current infection status in accordance with current CDC screening recommendations. Interpretive data was last revised on 2019. HepBsAg Nonreactive Nonreactive [facility] Blood 10/05/2023 7:18 PM FREEZER PERSON 10/05/2023 8:35 PM FREEZER PERSON Gabino León Boothe MD LAB MICROBIOLOGY - GENERAL ORDERABLES Final Result [facility] [address] [facility] Department [place] [address] from Last 3 Months or Most Recently Relevant to Health Maintenance Insurance [employer] COVENTRY HMO/POS [employer] COVENTRY HMO/POS Advance Directives For more information, please contact: [phone] * Full Code (Latest Code Status on File) Date Activated Date Inactivated Comments 09/11/2024 8:20 PM 09/15/2024 6:35 PM * Full Code Date Activated Date Inactivated Comments 10/05/2023 12:54 PM 10/11/2023 4:45 PM * Full Code Date Activated Date Inactivated Comments 03/05/2022 2:58 AM 03/06/2022 6:22 PM * Full Code Date Activated Date Inactivated Comments 02/06/2022 2:47 AM 02/07/2022 10:39 PM * Full Code Date Activated Date Inactivated Comments 12/04/2021 10:49 AM 12/09/2021 11:27 PM Care Teams Security Public Safety Officer Relationship Specialty Start Date End Date Mitchel Garibay DO [address] [place] [address] PCP - General Family Medicine 01/22/19
--- OUTSIDE RECORDS SUMMARY | 2024-11-28 02:02 | XMS_ITS | Clinical Summary ---
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 READING INTERVENTIONIST) WBC 7.7 3.8 - 9.9 K/cumm Hgb 12.4(L) 13.0 - 17.5 g/dL [facility] Hct 35.0(L) 38.9 - 50.3 % [facility] Plt 124(L) 150 - 400 K/cumm [facility] MPV 9.9 9.1 - 12.3 fL [facility] RBC 3.82(L) 4.30 - 5.80 M/cumm [facility] MCV 91.6 81.3 - 96.4 fL [facility] MCH 32.5 27.1 - 33.3 pg [facility] MCHC 35.4 32.3 - 35.7 g/dL [facility] RDW CV 13.8 11.1 - 14.9 % [facility] RDW SD 45.2 35.7 - 48.1 fL [facility] NRBC abs 0.03(H) 0.00 - 0.01 K/cumm [facility] Blood 09/15/2024 4:08 AM READING INTERVENTIONIST 09/15/2024 4:25 AM READING INTERVENTIONIST Chaz Nicole MD LAB BLOOD ORDERABL ES Final Result Performing Organization Address [facility] de Phone Number [address] [place] [address] * Phosphorus (09/15/2024 4:08 AM READING INTERVENTIONIST) [facility] Phosphorus, pl 3.6 2.3 - 4.5 mg/dL Blood 09/15/2024 4:08 AM READING INTERVENTIONIST 09/15/2024 4:25 AM READING INTERVENTIONIST Chaz Nicole MD LAB BLOOD ORDERABL ES Final Result Performing Organization Address [facility] de Phone Number [address] [place] [address] * Magnesium (09/15/2024 4:08 AM READING INTERVENTIONIST) [facility] Magnesium 1.5 1.4 - 2.5 mg/dL Blood 09/15/2024 4:08 AM READING INTERVENTIONIST 09/15/2024 4:25 AM READING INTERVENTIONIST Chaz Nicole MD LAB BLOOD ORDERABL ES Final Result Performing Organization Address [facility] de Phone Number [address] [place] [address] * (ABNORMAL) Comprehensive metabolic panel (09/15/2024 4:08 AM READING INTERVENTIONIST) [facility] Sodium 140 135 - 145 mmol/L Potassium, pl 3.5 3.3 - 4.9 mmol/L [facility] Chloride 106 97 - 110 mmol/L [facility] CO2 23 22 - 32 mmol/L [facility] Anion gap 11 2 - 15 mmol/L [facility] BUN 6 6 - 25 mg/dL [facility] Creatinine 0.82 0.80 - 1.30 mg/dL [facility] Glucose 107 70 - 199 mg/dL [facility] Comment: Interpretive Data Fasting glucose >/= 126 [...] 2022. Calcium 9.6 8.5 - 10.3 mg/dL [facility] Bilirubin, total 0.3 0.1 - 1.2 mg/dL [facility] Protein, pl 6.4(L) 6.5 - 8.5 g/dL [facility] Albumin 3.8 3.5 - 5.0 g/dL [facility] Alk phos 61 40 - 130 Units/L [facility] ALT 104(H) 7 - 55 Units/L [facility] AST 135(H) 10 - 50 Units/L [facility] Blood 09/15/2024 4:08 AM READING INTERVENTIONIST 09/15/2024 4:25 AM READING INTERVENTIONIST Chaz Nicole MD LAB BLOOD ORDERABL ES Final Result [facility] [address] [facility] Department [place] [address] * eGFR (09/14/2024 4:59 AM READING INTERVENTIONIST) eGFR >90 >=60 mL/min/1. 73 m2 Comment: [...] last reviewed 2021. Blood 09/14/2024 4:59 AM READING INTERVENTIONIST 09/14/2024 5:35 AM READING INTERVENTIONIST us Chaz Nicole MD LAB BLOOD ORDERABL ES Final Result [place] [id number] [facility] Department [place] [address] * Differential, auto (09/14/2024 4:59 AM READING INTERVENTIONIST) Neutrophil abs 4.0 1.5 - 6.5 K/cumm Imm gran abs 0.0 0.0 - 0.1 K/cumm [facility] Lymphocyte abs 1.9 0.8 - 3.3 K/cumm [facility] Monocyte abs 0.3 0.2 - 0.8 K/cumm [facility] Eosinophil abs 0.2 0.0 - 0.5 K/cumm [facility] Basophil abs 0.0 0.0 - 0.1 K/cumm [facility] Neutrophil pct 62.6 % [facility] Comment: Interpretive Data Percent cell count reference ranges are not reported, since discordance with absolute values may lead to misinterpretation of CBC data. Current Interpretive Data was last revised on 2018. Imm gran pct 0.6 % [facility] Comment: Interpretive Data Percent cell count reference ranges are not reported, since discordance with absolute values may lead to misinterpretation of CBC data. Current Interpretive Data was last revised on 2018. Lymphocyte pct 29.1 % [facility] Comment: Interpretive Data Percent cell count reference ranges are not reported, since discordance with absolute values may lead to misinterpretation of CBC data. Current Interpretive Data was last revised on 2018. Monocyte pct 4.7 % [facility] Comment: Interpretive Data Percent cell count reference ranges are not reported, since discordance with absolute values may lead to misinterpretation of CBC data. Current Interpretive Data was last revised on 2018. Eosinophil pct 2.5 % [facility] Comment: Interpretive Data Percent cell count reference ranges are not reported, since discordance with absolute values may lead to misinterpretation of CBC data. Current Interpretive Data was last revised on 2018. Basophil pct 0.5 % [facility] Comment: Interpretive Data Percent cell count reference ranges are not reported, since discordance with absolute values may lead to misinterpretation of CBC data. Current Interpretive Data was last revised on 2018. Blood 09/14/2024 4:59 AM READING INTERVENTIONIST 09/14/2024 5:35 AM READING INTERVENTIONIST Chaz Nicole MD LAB BLOOD ORDERABL ES Final Result [facility] [address] [facility] Department [place] [address] * (ABNORMAL) CBC with auto differential (09/14/2024 4:59 AM READING INTERVENTIONIST) WBC 6.5 3.8 - 9.9 K/cumm Hgb 12.1(L) 13.0 - 17.5 g/dL [facility] Hct 34.4(L) 38.9 - 50.3 % [facility] Plt 121(L) 150 - 400 K/cumm [facility] MPV 10.0 9.1 - 12.3 fL [facility] RBC 3.77(L) 4.30 - 5.80 M/cumm [facility] MCV 91.2 81.3 - 96.4 fL [facility] MCH 32.1 27.1 - 33.3 pg [facility] MCHC 35.2 32.3 - 35.7 g/dL [facility] RDW CV 13.2 11.1 - 14.9 % [facility] RDW SD 43.0 35.7 - 48.1 fL [facility] NRBC abs 0.03(H) 0.00 - 0.01 K/cumm [facility] Blood 09/14/2024 4:59 AM READING INTERVENTIONIST 09/14/2024 5:35 AM READING INTERVENTIONIST Chaz Nicole MD LAB BLOOD ORDERABL ES Final Result Performing Organization Address [facility] de Phone Number [address] [place] [address] * (ABNORMAL) Phosphorus (09/14/2024 4:59 AM READING INTERVENTIONIST) Pathologist [facility] Phosphorus, pl 2.1(L) 2.3 - 4.5 mg/dL Blood 09/14/2024 4:59 AM READING INTERVENTIONIST 09/14/2024 5:35 AM READING INTERVENTIONIST Chaz Nicole MD LAB BLOOD ORDERABL ES Final Result Performing Organization Address [facility] de Phone Number [address] [place] [address] * Magnesium (09/14/2024 4:59 AM READING INTERVENTIONIST) [facility] Magnesium 1.6 1.4 - 2.5 mg/dL Blood 09/14/2024 4:59 AM READING INTERVENTIONIST 09/14/2024 5:35 AM READING INTERVENTIONIST Chaz Nicole MD LAB BLOOD ORDERABL ES Final Result Performing Organization Address [facility] de Phone Number [address] [place] [address] * (ABNORMAL) Comprehensive metabolic panel (09/14/2024 4:59 AM READING INTERVENTIONIST) [facility] Sodium 135 135 - 145 mmol/L Potassium, pl 3.5 3.3 - 4.9 mmol/L [facility] Comment:Hemolyzed; Potassium value may be falsely elevated by as much as 1.0 mmol/L. Suggest redraw and reanalysis. Chloride 103 97 - 110 mmol/L [facility] CO2 22 22 - 32 mmol/L [facility] Anion gap 10 2 - 15 mmol/L [facility] BUN 5(L) 6 - 25 mg/dL [facility] Creatinine 0.94 0.80 - 1.30 mg/dL [facility] Glucose 123 70 - 199 mg/dL [facility] Comment: Interpretive Data Fasting glucose >/= 126 [...] 2022. Calcium 9.1 8.5 - 10.3 mg/dL [facility] Bilirubin, total 0.3 0.1 - 1.2 mg/dL [facility] Protein, pl 6.3(L) 6.5 - 8.5 g/dL [facility] Albumin 3.8 3.5 - 5.0 g/dL [facility] Alk phos 69 40 - 130 Units/L [facility] ALT 64(H) 7 - 55 Units/L [facility] AST 100(H) 10 - 50 Units/L [facility] Comment:Hemolyzed; result ma y be falsely elevated Blood 09/14/2024 4:59 AM READING INTERVENTIONIST 09/14/2024 5:35 AM READING INTERVENTIONIST us Chaz Nicole MD LAB BLOOD ORDERABL ES Final [facility] [address] [facility] Department [place] [address] * eGFR (09/13/2024 3:42 AM READING INTERVENTIONIST) eGFR >90 >=60 mL/min/1. 73 m2 Comment: [...] last reviewed 2021. Blood 09/13/2024 3:42 AM READING INTERVENTIONIST 09/13/2024 3:54 AM READING INTERVENTIONIST Chaz Nicole MD LAB BLOOD ORDERABL ES Final Result [facility] [address] [facility] Department [place] [address] * Differential, auto (09/13/2024 3:42 AM READING INTERVENTIONIST) Pathologist [facility] Neutrophil abs 3.0 1.5 - 6.5 K/cumm Imm gran abs 0.0 0.0 - 0.1 K/cumm [facility] Lymphocyte abs 1.8 0.8 - 3.3 K/cumm [facility] Monocyte abs 0.3 0.2 - 0.8 K/cumm [facility] Eosinophil abs 0.1 0.0 - 0.5 K/cumm [facility] Basophil abs 0.0 0.0 - 0.1 K/cumm [facility] Neutrophil pct 57.4 % [facility] Comment: Interpretive Data Percent cell count reference ranges are not reported, since discordance with absolute values may lead to misinterpretation of CBC data. Current Interpretive Data was last revised on 2018. Imm gran pct 0.2 % [facility] Comment: Interpretive Data Percent cell count reference ranges are not reported, since discordance with absolute values may lead to misinterpretation of CBC data. Current Interpretive Data was last revised on 2018. Lymphocyte pct 34.4 % [facility] Comment: Interpretive Data Percent cell count reference ranges are not reported, since discordance with absolute values may lead to misinterpretation of CBC data. Current Interpretive Data was last revised on 2018. Monocyte pct 5.6 % [facility] Comment: Interpretive Data Percent cell count reference ranges are not reported, since discordance with absolute values may lead to misinterpretation of CBC data. Current Interpretive Data was last revised on 2018. Eosinophil pct 1.8 % [facility] Comment: Interpretive Data Percent cell count reference ranges are not reported, since discordance with absolute values may lead to misinterpretation of CBC data. Current Interpretive Data was last revised on 2018. Basophil pct 0.6 % [facility] Comment: Interpretive Data Percent cell count reference ranges are not reported, since discordance with absolute values may lead to misinterpretation of CBC data. Current Interpretive Data was last revised on 2018. Blood 09/13/2024 3:42 AM READING INTERVENTIONIST 09/13/2024 3:55 AM READING INTERVENTIONIST us Chaz Nicole MD LAB BLOOD ORDERABL ES Final Result [facility] [address] [facility] Department [place] [address] * (ABNORMAL) CBC with auto differential (09/13/2024 3:42 AM READING INTERVENTIONIST) WBC 5.1 3.8 - 9.9 K/cumm Hgb 12.6(L) 13.0 - 17.5 g/dL [facility] Hct 34.8(L) 38.9 - 50.3 % [facility] Plt 112(L) 150 - 400 K/cumm [facility] MPV 10.1 9.1 - 12.3 fL [facility] RBC 3.84(L) 4.30 - 5.80 M/cumm [facility] MCV 90.6 81.3 - 96.4 fL [facility] MCH 32.8 27.1 - 33.3 pg [facility] MCHC 36.2(H) 32.3 - 35.7 g/dL [facility] RDW CV 12.9 11.1 - 14.9 % [facility] RDW SD 42.3 35.7 - 48.1 fL [facility] NRBC abs 0.00 0.00 - 0.01 K/cumm [facility] Blood 09/13/2024 3:42 AM READING INTERVENTIONIST 09/13/2024 3:55 AM READING INTERVENTIONIST Chaz Nicole MD LAB BLOOD ORDERABL ES Final Result Performing Organization Address City/[facility] Co de Phone Number [address] [place] [address] * Phosphorus (09/13/2024 3:42 AM READING INTERVENTIONIST) Pathologist [facility] Phosphorus, pl 2.3 2.3 - 4.5 mg/dL Blood 09/13/2024 3:42 AM READING INTERVENTIONIST 09/13/2024 3:54 AM READING INTERVENTIONIST Chaz Nicole MD LAB BLOOD ORDERABL ES Final Result Performing Organization Address [facility] de Phone Number [address] [place] [address] * Magnesium (09/13/2024 3:42 AM READING INTERVENTIONIST) [facility] Magnesium 2.0 1.4 - 2.5 mg/dL Blood 09/13/2024 3:42 AM READING INTERVENTIONIST 09/13/2024 3:54 AM READING INTERVENTIONIST Chaz Nicole MD LAB BLOOD ORDERABL ES Final Result Performing Organization Address [facility] Co de Phone Number [address] [place] [address] * (ABNORMAL) Comprehensive metabolic panel (09/13/2024 3:42 AM READING INTERVENTIONIST) Sodium 138 135 - 145 mmol/L Potassium, pl 3.6 3.3 - 4.9 mmol/L [facility] Chloride 104 97 - 110 mmol/L [facility] CO2 24 22 - 32 mmol/L [facility] Anion gap 10 2 - 15 mmol/L [facility] BUN 7 6 - 25 mg/dL [facility] Creatinine 0.82 0.80 - 1.30 mg/dL [facility] Glucose 106 70 - 199 mg/dL [facility] Comment: Interpretive Data Fasting glucose >/= 126 [...] 2022. Calcium 9.4 8.5 - 10.3 mg/dL [facility] Bilirubin, total 0.5 0.1 - 1.2 mg/dL [facility] Protein, pl 6.7 6.5 - 8.5 g/dL [facility] Albumin 3.9 3.5 - 5.0 g/dL [facility] Alk phos 69 40 - 130 Units/L [facility] ALT 43 7 - 55 Units/L [facility] AST 69(H) 10 - 50 Units/L [facility] Blood 09/13/2024 3:42 AM READING INTERVENTIONIST 09/13/2024 3:54 AM READING INTERVENTIONIST Chaz Nicole MD LAB BLOOD ORDERABL ES Final Result [facility] [address] [facility] Department [place] [address] * Troponin T high-sensitivity 6-hour (09/12/2024 3:52 AM READING INTERVENTIONIST) Pathologist [facility] Trop T hs 6 <=22 ng/L Comment: Interpretive Data For further hscTnT resources including the diagnostic algorithm and an aid in interpretation, copy and paste this link: [email or web address] Current Interpretive Data last revised 2020. Trop T hs delta -1 ng/L [facility] Trop T hs interp Insignificant [facility] Blood 09/12/2024 3:52 AM READING INTERVENTIONIST 09/12/2024 4:50 AM READING INTERVENTIONIST Truong Maloney MD LAB BLOOD ORDERABLES Final Result Performing Organization Address [facility] Co de Phone Number [place] [address] [place] [address] * Troponin T high-sensitivity 4-hour (09/12/2024 2:22 AM READING INTERVENTIONIST) Trop T hs <6 <=22 ng/L Comment: Interpretive Data For further hscTnT resources including the diagnostic algorithm and an aid in interpretation, copy and paste this link: [email or web address] Current Interpretive Data last revised 2020. Trop T hs delta -1 ng/L [facility] Trop T hs interp Insignificant [facility] Blood 09/12/2024 2:22 AM READING INTERVENTIONIST 09/12/2024 2:32 AM READING INTERVENTIONIST Truong Maloney MD LAB BLOOD ORDERABLES Final Result Performing Organization Address [facility] Co de Phone Number [address] [place] [address] * eGFR (09/12/2024 2:22 AM READING INTERVENTIONIST) eGFR >90 >=60 mL/min/1. 73 m2 Comment: [...] data was last reviewed 2021. Blood 09/12/2024 2:22 AM READING INTERVENTIONIST 09/12/2024 2:32 AM READING INTERVENTIONIST Truong Maloney MD LAB BLOOD ORDERABLES Final Result [place] [address] [facility] Department [place] [address] * Differential, auto (09/12/2024 2:22 AM READING INTERVENTIONIST) Pathologist [facility] Neutrophil abs 4.0 1.5 - 6.5 K/cumm Imm gran abs 0.0 0.0 - 0.1 K/cumm [facility] Lymphocyte abs 1.6 0.8 - 3.3 K/cumm [facility] Monocyte abs 0.4 0.2 - 0.8 K/cumm [facility] Eosinophil abs 0.0 0.0 - 0.5 K/cumm [facility] Basophil abs 0.0 0.0 - 0.1 K/cumm [facility] Neutrophil pct 65.5 % [facility] Comment: Interpretive Data Percent cell count reference ranges are not reported, since discordance with absolute values may lead to misinterpretation of CBC data. Current Interpretive Data was last revised on 2018. Imm gran pct 0.3 % [facility] Comment: Interpretive Data Percent cell count reference ranges are not reported, since discordance with absolute values may lead to misinterpretation of CBC data. Current Interpretive Data was last revised on 2018. Lymphocyte pct 26.5 % [facility] Comment: Interpretive Data Percent cell count reference ranges are not reported, since discordance with absolute values may lead to misinterpretation of CBC data. Current Interpretive Data was last revised on 2018. Monocyte pct 6.7 % [facility] Comment: Interpretive Data Percent cell count reference ranges are not reported, since discordance with absolute values may lead to misinterpretation of CBC data. Current Interpretive Data was last revised on 2018. Eosinophil pct 0.3 % [facility] Comment: Interpretive Data Percent cell count reference ranges are not reported, since discordance with absolute values may lead to misinterpretation of CBC data. Current Interpretive Data was last revised on 2018. Basophil pct 0.7 % [facility] Comment: Interpretive Data Percent cell count reference ranges are not reported, since discordance with absolute values may lead to misinterpretation of CBC data. Current Interpretive Data was last revised on 2018. Blood 09/12/2024 2:22 AM READING INTERVENTIONIST 09/12/2024 2:32 AM READING INTERVENTIONIST Truong Maloney MD LAB BLOOD ORDERABLES Final Result [place] [address] [facility] Department [place] [address] * (ABNORMAL) CBC with auto differential (09/12/2024 2:22 AM READING INTERVENTIONIST) WBC 6.2 3.8 - 9.9 K/cumm Hgb 12.3(L) 13.0 - 17.5 g/dL [facility] Hct 34.2(L) 38.9 - 50.3 % [facility] Plt 118(L) 150 - 400 K/cumm [facility] MPV 10.3 9.1 - 12.3 fL [facility] RBC 3.85(L) 4.30 - 5.80 M/cumm [facility] MCV 88.8 81.3 - 96.4 fL [facility] MCH 31.9 27.1 - 33.3 pg [facility] MCHC 36.0(H) 32.3 - 35.7 g/dL [facility] RDW CV 12.8 11.1 - 14.9 % [facility] RDW SD 41.4 35.7 - 48.1 fL [facility] NRBC abs 0.02(H) 0.00 - 0.01 K/cumm [facility] Blood 09/12/2024 2:22 AM READING INTERVENTIONIST 09/12/2024 2:32 AM READING INTERVENTIONIST Truong Maloney MD LAB BLOOD ORDERABLES Final Result [facility] [address] [facility] [place] [address] * (ABNORMAL) Comprehensive metabolic panel (09/12/2024 2:22 AM READING INTERVENTIONIST) Sodium 139 135 - 145 mmol/L Potassium, pl 3.8 3.3 - 4.9 mmol/L [facility] Chloride 106 97 - 110 mmol/L [facility] CO2 23 22 - 32 mmol/L [facility] Anion gap 10 2 - 15 mmol/L [facility] BUN 5(L) 6 - 25 mg/dL [facility] Creatinine 0.80 0.80 - 1.30 mg/dL [facility] Glucose 82 70 - 199 mg/dL [facility] Comment: Interpretive Data Fasting glucose >/= 126 [...] 2022. Calcium 8.8 8.5 - 10.3 mg/dL [facility] Bilirubin, total 1.0 0.1 - 1.2 mg/dL [facility] Protein, pl 6.2(L) 6.5 - 8.5 g/dL [facility] Albumin 3.8 3.5 - 5.0 g/dL [facility] Alk phos 71 40 - 130 Units/L [facility] ALT 46 7 - 55 Units/L [facility] AST 82(H) 10 - 50 Units/L [facility] Blood 09/12/2024 2:22 AM READING INTERVENTIONIST 09/12/2024 2:32 AM READING INTERVENTIONIST Truong Maloney MD LAB BLOOD ORDERABLES Final Result Performing Organization Address City/[facility]/ZIP Co de Phone Number [facility] [address] [address] * Troponin T high-sensitivity 2-hour (09/11/2024 11:42 PM READING INTERVENTIONIST) Trop T hs 7 <=22 ng/L Comment: Interpretive Data For further hscTnT resources including the diagnostic algorithm and an aid in interpretation, copy and paste this link: [email or web address] Current Interpretive Data last revised 2020. Trop T hs delta 0 ng/L [facility] Trop T hs interp Insignificant [facility] Blood 09/11/2024 11:4 2 PM READING INTERVENTIONIST 09/12/2024 12:25 AM READING INTERVENTIONIST Truong Maloney MD LAB BLOOD ORDERABLES Final Result Performing Organization Address [facility] Co de Phone Number [facility] [address] [address] * Troponin T high-sensitivity series (baseline, 2hr, 4hr, 6hr) (09/11/2024 9:31 PM READING INTERVENTIONIST) Trop T hs 7 <=22 ng/L Comment: Interpretive Data For further hscTnT resources including the diagnostic algorithm and an aid in interpretation, copy and paste this link: [email or web address] Current Interpretive Data last revised 2020. Blood 09/11/2024 9:31 PM READING INTERVENTIONIST 09/11/2024 9:34 PM READING INTERVENTIONIST Truong Maloney MD LAB BLOOD ORDERABLES Final Result Performing Organization Address City/[facility]/ZIP Co de Phone Number [facility] [address] Department [place] [address] * ECG 12 lead (09/11/2024 9:19 PM READING INTERVENTIONIST) Ventricular Rate EKG/Min 98 BPM [facility] Atrial Rate 98 BPM [facility] ME-Interval (MSEC) 136 ms [facility] QRS-Interval (MSEC) 84 ms [facility] QT-Interval (MSEC) 372 ms [facility] QTc 474 ms [facility] P [place] 71 degrees [facility] R [place] 55 degrees [facility] T [place] 29 degrees [facility] Diagnosis Normal sinus rhythm Normal ECG When compared with ECG of 10-SEP-2024 12:51, No significant change was found Confirmed by JAMIR WOLF M.D. ([id number]) on 09/15/2024 9:53:32 AM [facility] 09/11/2024 9:19 PM READING INTERVENTIONIST 09/15/2024 9:53 AM READING INTERVENTIONIST Truong Maloney MD ECG ORDERABLES Alice akbar Result [facility] * (ABNORMAL) Urinalysis reflex to microscopic and culture Urine (09/11/2024 1:10 PM READING INTERVENTIONIST) Color, ur Yellow Yellow Clarity, ur Clear Clear [facility] Specific gravity, ur 1.005 1.003 - 1.030 [facility] pH, urine 6.5 [facility] Comment: Interpretive Data U rine pH is affected by diet, medications, systemic acid-base disturbances, and renal tubular function. pH may affect urinary stone formation. For example, urine pH below 6.0 may help reduce the tendency for calcium phosphate stones and pH greater than 6.0 may reduce the tendency for uric acid stone formation. Source: [facility] Current Interpretive Data was last revised on 2017 Protein, ur ql 1+(A) Negative [facility] Glucose, ur ql Negative Negative [facility] Ketones, ur Negative Negative [facility] Bilirubin, ur Negative Negative [facility] Blood, ur Negative Negative [facility] Urobilinogen, ur 2.0(A) <2.0 mg/dL [facility] Nitrite, ur Negative Negative [facility] Leukocyte esterase, ur Negative Negative [facility] UA reflex comment Reflex to microscopic UA will be performed. [facility] Urine 09/11/2024 1:10 PM READING INTERVENTIONIST 09/11/2024 1:13 PM READING INTERVENTIONIST Ginger PELLETIER LAB MICROBIOLOGY - GENERAL ORDERABLES Final Result [facility] [address] [facility] Department [place] [address] * (ABNORMAL) Drugs of Abuse Screen, Urine without Confirmation (09/11/2024 1:10 PM READING INTERVENTIONIST) Amphetamine, ur Not Detected CutOff 500ng/mL Comment: Interpretive Data - Amphetamines: Samples containing greater than 500 ng/mL d-methamphetamine or other cross-reacting amphetamine compounds are reported as positive. Amphetamine immunoassays are subject to significant false positive rates due to cross-reactivity of non-amphetamine drugs. Confirmatory testing required for definitive results. Current Interpretive Data was last reviewed 2023. Barbiturates, ur Not Detected CutOff 200ng/mL [facility] Comment: Interpretive Data - Barbiturates: Samples containing greater than 200 ng/mL secobarbital or other cross-reacting barbiturate compounds are reported as positive. False positive and false negative results are possible. Confirmatory testing required for definitive results. Current Interpretive Data was last reviewed 2023. Benzodiazepines, ur Screen Positive, presumptive (A) CutOff 100ng/mL [facility] Comment: Interpretive Data - Benzodiazepines: Samples containing greater than 100 ng/mL nordiazepam or other cross-reacting compounds are reported as positive. False positive and false negative results are possible. Confirmatory testing required for definitive results. Current Interpretive Data was last reviewed 2023. Cannabinoids, ur Screen Positive, presumptive (A) CutOff 50 ng/mL [facility] Comment: Interpretive Data - Cannabinoids: Samples containing greater than 50 ng/mL delta-9 THC -COOH or other cross- reacting compounds are reported as positive. False positive and false negative results are possible. Confirmatory testing required for definitive results. Current Interpretive Data was last reviewed 2023. Cocaine, ur Not Detected CutOff 150ng/mL [facility] Comment: Interpretive Data - Cocaine: Samples containing greater than 150 ng/mL benzoylecgonine or other cross- reacting compounds are reported as positive. False positive and false negative results are possible. Confirmatory testing required for definitive results. Current Interpretive Data was last reviewed 2023. Fentanyl, Ur Not Detected CutOff 5 ng/mL [facility] Comment: Interpretive Data - Fentanyl: Samples containing greater than 5 ng/mL norfentanyl, fentanyl, or other cross-reacting fentanyl compounds are reported as positive. False positive and false negative results are possible. Confirmatory testing required for definitive results. Current Interpretive Data was last reviewed 2023. Methadone, ur Not Detected CutOff 300ng/mL [facility] Comment: Interpretive Data - Methadone: Samples containing greater than 300 ng/mL d,l-methadone or other cross-reacting compounds are reported as positive. False positive and false negative results are possible. Confirmatory testing required for definitive results. Current Interpretive Data was last reviewed 2023. Opiates, ur Not Detected CutOff 300ng/mL [facility] Comment: Interpretive Data - Opiates: Samples containing greater than 300 ng/mL morphine or other cross-reacting compounds are reported as positive. False positive and false negative results are possible. Confirmatory testing required for definitive results. Current Interpretive Data was last reviewed 2023. Oxycodone, ur Not Detected CutOff 100ng/mL [facility] Comment: Interpretive Data - Oxycodone: Samples containing greater than 100 ng/mL oxycodone or other cross-reacting compounds are reported as positive. False positive and false negative results are possible. Confirmatory testing required for definitive results. Current Interpretive Data was last reviewed 2023. Phencyclidine, ur Not Detected CutOff 25 ng/mL [facility] Comment: Interpretive Data - Phencyclidine: Samples containing [...] revised on 2017. Urine 09/11/2024 1:10 PM READING INTERVENTIONIST 09/11/2024 1:13 PM READING INTERVENTIONIST Narrative [facility] - 09/11/2024 1:40 PM READING INTERVENTIONIST Drug of Abuse screening is performed by immunoassay for medical purposes only. This is not to be used for Pain Management purposes. Adebowale Tolulade Adesida PA LAB URINE ORDERABL ES Final Result Performing Organization Address [facility] de Phone Number [address] [place] [address] * (ABNORMAL) Urinalysis, microscopic only (09/11/2024 1:10 PM READING INTERVENTIONIST) WBC, ur 0-5 0 - 5 /HPF RBC, ur 0-2 0 - 2 /HPF [facility] Epithelial cells, squamous, ur 1-5 0 - 5 /HPF [facility] Mucous, ur Present(A) [facility] Amorphous crystals, ur Trace(A) [facility] Culture Reflex Comment Reflex conditions for urine culture (WBC >10) not met. [facility] Urine 09/11/2024 1:10 PM READING INTERVENTIONIST 09/11/2024 1:13 PM READING INTERVENTIONIST [facility] Ades[facility] LAB URINE ORDERABL ES Final Result Performing Organization Address [facility] de Phone Number [address] [place] [address] * eGFR (09/11/2024 1:03 PM READING INTERVENTIONIST) eGFR >90 >=60 mL/min/1. 73 m2 Comment: [...] last reviewed 2021. Blood 09/11/2024 1:03 PM READING INTERVENTIONIST 09/11/2024 1:05 PM READING INTERVENTIONIST Ginger PELLETIER LAB BLOOD ORDERABL ES Final Result [place] [address] [facility] Department [place] [address] * Differential, auto (09/11/2024 1:03 PM READING INTERVENTIONIST) Pathologist [facility] Neutrophil abs 3.6 1.5 - 6.5 K/cumm Imm gran abs 0.0 0.0 - 0.1 K/cumm [facility] Lymphocyte abs 1.3 0.8 - 3.3 K/cumm [facility] Monocyte abs 0.3 0.2 - 0.8 K/cumm [facility] Eosinophil abs 0.0 0.0 - 0.5 K/cumm [facility] Basophil abs 0.1 0.0 - 0.1 K/cumm [facility] Neutrophil pct 67.8 % [facility] Comment: Interpretive Data Percent cell count reference ranges are not reported, since discordance with absolute values may lead to misinterpretation of CBC data. Current Interpretive Data was last revised on 2018. Imm gran pct 0.2 % [facility] Comment: Interpretive Data Percent cell count reference ranges are not reported, since discordance with absolute values may lead to misinterpretation of CBC data. Current Interpretive Data was last revised on 2018. Lymphocyte pct 24.3 % [facility] Comment: Interpretive Data Percent cell count reference ranges are not reported, since discordance with absolute values may lead to misinterpretation of CBC data. Current Interpretive Data was last revised on 2018. Monocyte pct 6.5 % [facility] Comment: Interpretive Data Percent cell count reference ranges are not reported, since discordance with absolute values may lead to misinterpretation of CBC data. Current Interpretive Data was last revised on 2018. Eosinophil pct 0.2 % [facility] Comment: Interpretive Data Percent cell count reference ranges are not reported, since discordance with absolute values may lead to misinterpretation of CBC data. Current Interpretive Data was last revised on 2018. Basophil pct 1.0 % [facility] Comment: Interpretive Data Percent cell count reference ranges are not reported, since discordance with absolute values may lead to misinterpretation of CBC data. Current Interpretive Data was last revised on 2018. Blood 09/11/2024 1:03 PM READING INTERVENTIONIST 09/11/2024 1:05 PM READING INTERVENTIONIST Ginger PELLETIER LAB BLOOD ORDERABL ES Final Result [facility] [address] [facility] Department [place] [address] * (ABNORMAL) CBC with auto differential (09/11/2024 1:03 PM READING INTERVENTIONIST) WBC 5.2 3.8 - 9.9 K/cumm Hgb 14.3 13.0 - 17.5 g/dL [facility] Hct 39.6 38.9 - 50.3 % [facility] Plt 146(L) 150 - 400 K/cumm [facility] MPV 9.8 9.1 - 12.3 fL [facility] RBC 4.55 4.30 - 5.80 M/cumm [facility] MCV 87.0 81.3 - 96.4 fL [facility] MCH 31.4 27.1 - 33.3 pg [facility] MCHC 36.1(H) 32.3 - 35.7 g/dL [facility] RDW CV 12.4 11.1 - 14.9 % [facility] RDW SD 39.7 35.7 - 48.1 fL [facility] NRBC abs 0.00 0.00 - 0.01 K/cumm [facility] Blood 09/11/2024 1:03 PM READING INTERVENTIONIST 09/11/2024 1:05 PM READING INTERVENTIONIST Adebowale Tolulade Adesida PA LAB BLOOD ORDERABL ES Final Result Performing Organization Address [facility] de Phone Number [address] [address] * Phosphorus (09/11/2024 1:03 PM READING INTERVENTIONIST) Phosphorus, pl 2.4 2.3 - 4.5 mg/dL Blood 09/11/2024 1:03 PM READING INTERVENTIONIST 09/11/2024 1:05 PM READING INTERVENTIONIST [facility] Tolulade Adesida PA LAB BLOOD ORDERABL ES Final Result Performing Organization Address [facility] Phone Number [address] [address] * Magnesium (09/11/2024 1:03 PM READING INTERVENTIONIST) Pathologist [facility] Magnesium 1.6 1.4 - 2.5 mg/dL Blood 09/11/2024 1:03 PM READING INTERVENTIONIST 09/11/2024 1:05 PM READING INTERVENTIONIST [facility] Tolulade Adesida PA LAB BLOOD ORDERABL ES Final Result Performing Organization Address [facility] de Phone Number [address] [address] * (ABNORMAL) Ethanol (09/11/2024 1:03 PM READING INTERVENTIONIST) Ethanol 84(H) <=10 mg/dL Comment: Interpretive Data Legal limit of intoxication > or = 80 mg/dL Levels > or = 400 mg/dL are potentially TOXIC. Current interpretive data was last revised on 2018. Blood 09/11/2024 1:03 PM READING INTERVENTIONIST 09/11/2024 1:05 PM READING INTERVENTIONIST Ginger PELLETIER LAB BLOOD ORDERABL ES Final Result [facility] [address] [facility] Department [place] [address] * (ABNORMAL) Comprehensive metabolic panel (09/11/2024 1:03 PM READING INTERVENTIONIST) Sodium 136 135 - 145 mmol/L Potassium, pl 3.0(L) 3.3 - 4.9 mmol/L [facility] Chloride 95(L) 97 - 110 mmol/L [facility] CO2 20(L) 22 - 32 mmol/L [facility] Anion gap 21(H) 2 - 15 mmol/L [facility] BUN 5(L) 6 - 25 mg/dL [facility] Creatinine 0.79(L) 0.80 - 1.30 mg/dL [facility] Glucose 113 70 - 199 mg/dL [facility] Comment: Interpretive Data Fasting glucose >/= 126 [...] 2022. Calcium 10.0 8.5 - 10.3 mg/dL [facility] Bilirubin, total 1.1 0.1 - 1.2 mg/dL [facility] Protein, pl 8.2 6.5 - 8.5 g/dL [facility] Albumin 4.7 3.5 - 5.0 g/dL [facility] Alk phos 94 40 - 130 Units/L [facility] ALT 72(H) 7 - 55 Units/L [facility] AST 158(H) 10 - 50 Units/L [facility] Blood 09/11/2024 1:03 PM READING INTERVENTIONIST 09/11/2024 1:05 PM READING INTERVENTIONIST us Ginger PELLETIER LAB BLOOD ORDERABL ES Final Result [place] [address] [facility] Department [place] [address] * ECG 12 lead (09/10/2024 12:51 PM READING INTERVENTIONIST) Ventricular Rate EKG/Min 119 BPM [facility] Atrial Rate 119 BPM [facility] ME-Interval (MSEC) 134 ms [facility] QRS-Interval (MSEC) 84 ms [facility] QT-Interval (MSEC) 306 ms [facility] QTc 430 ms [facility] P [place] 64 degrees [facility] R [place] 31 degrees [facility] T [place] 33 degrees [facility] Diagnosis Sinus tachycardia Possible Left atrial enlargement When compared with ECG of 05-OCT-2023 08:44, No significant change was found Confirmed by SULTAN GALLAGHER M.D. ([id number]) on 09/10/2024 4:41:17 PM [facility] 09/10/2024 12:5 1 PM READING INTERVENTIONIST 09/10/2024 4:41 PM READING INTERVENTIONIST us Jose Carlos Kenyon DO ECG ORDERABLES Final Resul t Performing Organization Address City/[facility]/ZIP Co de Phone Number [facility] * eGFR (09/10/2024 12:41 PM READING INTERVENTIONIST) eGFR >90 >=60 mL/min/1. 73 m2 Comment: [...] was last reviewed 2021. Testing performed by: [address] [address] Blood 09/10/2024 12:4 1 PM READING INTERVENTIONIST 09/10/2024 12:50 PM READING INTERVENTIONIST us Jose Carlos Kenyon DO LAB BLOOD ORDERABLES Final Result [place] [address] [facility] Department [place] [address] * Differential, auto (09/10/2024 12:41 PM READING INTERVENTIONIST) Neutrophil abs 4.4 1.5 - 6.5 K/cumm Comment:Testing performed by : [address] [address] Imm gran abs 0.0 0.0 - 0.1 K/cumm [facility] Comment:Testing performed by : [address] [address] Lymphocyte abs 2.2 0.8 - 3.3 K/cumm [place] Comment:Testing performed by : [address] [address] Monocyte abs 0.3 0.2 - 0.8 K/cumm [place] Comment:Testing performed by : [address] [address] Eosinophil abs 0.0 0.0 - 0.5 K/cumm [place] Comment:Testing performed by : [address] [address] Basophil abs 0.1 0.0 - 0.1 K/cumm [place] Comment:Testing performed by : [address] [address] Neutrophil pct 62.8 % [facility] Comment: Interpretive Data Percent cell count reference ranges are not reported, since discordance with absolute values may lead to misinterpretation of CBC data. Current Interpretive Data was last revised on 2018. Testing performed by: [address] [address] Imm gran pct 0.1 % [facility] Comment: Interpretive Data Percent cell count reference ranges are not reported, since discordance with absolute values may lead to misinterpretation of CBC data. Current Interpretive Data was last revised on 2018. Testing performed by: [address] [address] Lymphocyte pct 31.6 % [facility] Comment: Interpretive Data Percent cell count reference ranges are not reported, since discordance with absolute values may lead to misinterpretation of CBC data. Current Interpretive Data was last revised on 2018. Testing performed by: [address] [address] Monocyte pct 4.5 % [facility] Comment: Interpretive Data Percent cell count reference ranges are not reported, since discordance with absolute values may lead to misinterpretation of CBC data. Current Interpretive Data was last revised on 2018. Testing performed by: [address] [address] Eosinophil pct 0.0 % [facility] Comment: Interpretive Data Percent cell count reference ranges are not reported, since discordance with absolute values may lead to misinterpretation of CBC data. Current Interpretive Data was last revised on 2018. Testing performed by: [address] [address] Basophil pct 1.0 % [facility] Comment: Interpretive Data Percent cell count reference ranges are not reported, since discordance with absolute values may lead to misinterpretation of CBC data. Current Interpretive Data was last revised on 2018. Testing performed by: [address] [address] Blood 09/10/2024 12:4 1 PM READING INTERVENTIONIST 09/10/2024 12:50 PM READING INTERVENTIONIST us Jose Carlos Kenyon DO LAB BLOOD ORDERABLES Final Result [facility] Department [place] [address] * Thyroid Function [place] (09/10/2024 12:41 PM READING INTERVENTIONIST) [facility] TSH 0.52 0.30 - 4.20 mcIUnit/mL Comment:Testing performed by : [address] [address] Blood 09/10/2024 12:4 1 PM READING INTERVENTIONIST 09/10/2024 12:50 PM READING INTERVENTIONIST us Jose Carlos Kenyon DO LAB BLOOD ORDERABLES Final Result [facility] [place] [address] * (ABNORMAL) CBC with auto differential (09/10/2024 12:41 PM READING INTERVENTIONIST) [facility] WBC 7.1 3.8 - 9.9 K/cumm Comment:Testing performed by : [address] [address] Hgb 16.2 13.0 - 17.5 g/dL [facility] Comment:Testing performed by : [address] [address] Hct 44.0 38.9 - 50.3 % [facility] Comment:Testing performed by : [address] [address] Plt 220 150 - 400 K/cumm [facility] Comment:Testing performed by : [address] [address] MPV 9.3 9.1 - 12.3 fL [facility] Comment:Testing performed by : [address] [address] RBC 5.02 4.30 - 5.80 M/cumm [facility] MURILLO Comment:Testing performed by : [address] [address] MCV 87.6 81.3 - 96.4 fL [place] [place] Comment:Testing performed by : [address] [address] MCH 32.3 27.1 - 33.3 pg [facility] M[place]O Comment:Testing performed by : [address] [address] MCHC 36.8(H) 32.3 - 35.7 g/dL [facility] [place]O Comment:Testing performed by : [address] [address] RDW CV 12.8 11.1 - 14.9 % [facility] M[place]O Comment:Testing performed by : [address] [address] RDW SD 41.2 35.7 - 48.1 fL [facility] Comment:Testing performed by : [address] [address] NRBC abs 0.03(H) 0.00 - 0.01 K/cumm [facility] MURILLO Comment:Testing performed by : [address] [address] Blood Venous blood specimen / Unknown 09/10/2024 12:41 PM READING INTERVENTIONIST 09/10/2024 12:50 PM READING INTERVENTIONIST Jose Carlos Kenyon DO LAB BLOOD ORDERABLES Final Result Performing Organization Address City/[facility] Co de Phone Number [facility] [address] [facility] Department [place] [address] * (ABNORMAL) Ethanol (09/10/2024 12:41 PM READING INTERVENTIONIST) Ethanol 299(H) <=10 mg/dL Comment: Interpretive Data Legal limit of intoxication > or = 80 mg/dL Levels > or = 400 mg/dL are potentially TOXIC. Current interpretive data was last revised on 2018. Testing performed by: [address] [address] Blood 09/10/2024 12:4 1 PM READING INTERVENTIONIST 09/10/2024 12:50 PM READING INTERVENTIONIST Jose Carlos Kenyon DO LAB BLOOD ORDERABLES Final Result Performing Organization Address City/[facility] Co de Phone Number [facility] [address] [place] [address] * Acetaminophen level (09/10/2024 12:41 PM READING INTERVENTIONIST) Acetaminophen <5 <=5 mcg/mL Comment: Interpretive Data Significant hepatic injury may occur and treatment with n-acetyl cysteine is generally recommended if the acetaminophen level exceeds: 150 mcg/mL at 4 hours after ingestion 75 mcg/mL at 8 hours after ingestion 38 mcg/mL at 12 hours after ingestion 19 mcg/mL at 16 hours after ingestion Consult toxicology or poison control ([phone]) for unknown ingestion time. Current interpretive data was last revised 2023. Testing performed by: [address] [address] Blood 09/10/2024 12:4 1 PM READING INTERVENTIONIST 09/10/2024 12:50 PM READING INTERVENTIONIST Jose Carlos Kenyon DO LAB BLOOD ORDERABLES Final Result Performing Organization Address [facility] Co de Phone Number [address] [address] * Salicylate level (09/10/2024 12:41 PM READING INTERVENTIONIST) Pathologist [facility] Salicylate <1.0 <=1.0 mg/dL Comment: Interpretive Data Toxic: 30 mg/dL or greater. Current interpretive data was last revised 2023. Testing performed by: [address] [address] Blood 09/10/2024 12:4 1 PM READING INTERVENTIONIST 09/10/2024 12:50 PM READING INTERVENTIONIST Jose Carlos Kenyon DO LAB BLOOD ORDERABLES Final Result Performing Organization Address City/[facility] [facility] Co de Phone Number [phone] [address] * (ABNORMAL) Comprehensive metabolic panel (09/10/2024 12:41 PM READING INTERVENTIONIST) Pathologist [facility] Sodium 139 135 - 145 mmol/L Comment:Testing performed by : [facility], [address] [place] [address]., [address] Potassium, pl 3.4 3.3 - 4.9 mmol/L [place] Comment:Testing performed by : [address], [place]., [address] Chloride 96(L) 97 - 110 mmol/L [place] Comment:Testing performed by : [address], [place]., [address] CO2 22 22 - 32 mmol/L [place] Comment:Testing performed by : [address], [place]., [address] Anion gap 21(H) 2 - 15 mmol/L [place] Comment:Testing performed by : [address], [place]., [address] BUN 6 6 - 25 mg/dL [place] Comment:Testing performed by : [address] [address] Creatinine 0.80 0.80 - 1.30 mg/dL [place] Comment:Testing performed by : [address] [address] Glucose 170 70 - 199 mg/dL [place] [...] was last revised 2022. Testing performed by: [address] [address] Calcium 9.6 8.5 - 10.3 mg/dL [place] Comment:Testing performed by : [address], [place]., [address] Bilirubin, total 0.5 0.1 - 1.2 mg/dL [place] Comment:Testing performed by : [address] [address] Protein, pl 8.8(H) 6.5 - 8.5 g/dL [place] MURILLO Comment:Testing performed by : [address] [address] Albumin 4.9 3.5 - 5.0 g/dL [place] MURILLO Comment:Testing performed by : [address] [address] Alk phos 98 40 - 130 Units/L [place] Comment:Testing performed by : [address] [address] ALT 63(H) 7 - 55 Units/L [place] Comment:Testing performed by : [address] [address] AST 116(H) 10 - 50 Units/L [place] Comment:Testing performed by : [address] [address] Blood 09/10/2024 12:4 1 PM READING INTERVENTIONIST 09/10/2024 12:50 PM READING INTERVENTIONIST us Jose Carlos Kenyon DO LAB BLOOD ORDERABLES Final Result [facility] [address] [facility] Department of Laboratories [place], [place] [id number] * Hepatitis panel, acute Blood (10/05/2023 7:18 PM READING INTERVENTIONIST) Hep A IgM Nonreactive Nonreactive [place] Comment: [...] Nonreactive Nonreactive [place] Blood 10/05/2023 7:18 PM READING INTERVENTIONIST 10/05/2023 8:35 PM READING INTERVENTIONIST Gabino Boothe MD LAB MICROBIOLOGY - GENERAL ORDERABLES Final Result [facility] MURILLO [address] [facility] Department [place] [address] from Last 3 Months or Most Recently Relevant to Health Maintenance Insurance [employer] COVENTRY HMO/POS [employer] COVENTRY HMO/POS Advance Directives For more information, please contact: [phone] * Full Code (Latest Code Status on [...] 10:49 AM 12/09/2021 11:27 PM Care Teams Ultrasound Technologist Sonographer Relationship Specialty Start Date End Date Mitchel Garibay DO [address] [place] [address] PCP - General Family Medicine 01/22/19
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
--- NOTE | 2024-11-28 02:15 | ED.GENADULT ---
HPI - General Adult General Chief complaint: Alcohol Stated complaint: ETOH Withdraw, I believe I have covid Time Seen by Provider: 11/28/24 02:07 History of Present Illness HPI narrative: Patient is a 34-year-old gentleman who presents emergency department with chief complaint of would like alcohol treatment. Patient states that he has history of heavy alcohol use reports that he is currently drinking about 20 beers a day and reports that his last drink was about 3 hours ago patient reports that he has had alcohol withdrawal seizures in the past and reports that he also tested positive with home COVID test yesterday the patient states that he is not really that tremulous yet the patient states that he would like to go through treatment reports that he has gone through treatment multiple times at [facility] in [place] and reports that tonight he decided to come to our facility Related Data Home Medications ?Medication ?Instructions ?Recorded ?Confirmed ?Last Taken ?Type buspirone 10 mg tablet 10 mg PO TID 01/17/22 06/01/23 06/23/22 09:00 History gabapentin 300 mg capsule 300 mg PO TID 01/17/22 06/01/23 06/23/22 09:00 History levetiracetam 500 mg tablet 500 mg PO BID 01/17/22 06/01/23 06/23/22 09:00 History amitriptyline 50 mg tablet 100 mg PO HS 01/20/22 06/01/23 06/22/22 21:00 History Allergies Allergy/AdvReac Type Severity Reaction Status Date / Time Penicillins Allergy Unknown Hives Verified 06/01/23 00:03 diazepam (From Valium) AdvReac Severe Confusion Verified 06/01/23 00:03 Review of Systems Review of Systems: A 10 system review of systems was completed on the patient and is negative except for what is stated in the HPI. Nursing and ancillary documentation was reviewed. 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 His mother Molly will be his surrogate. 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 Smoking packs per day: 0.1 Smoking cigarettes per day: 2.0 Years smoked: 10 Smoking pack-years: 1.00 Smoking status: Current every day smoker Tobacco type: cigarettes Second hand tobacco smoke exposure: Yes Additional smoking assessment comments: 1 pack every 1 weeks Alcohol intake: current Drinks per week: 50 Alcohol use details: 1/5 of vodka a day Substance use: current Substance use type: marijuana Other substance usage details: drinks 1/5 of whiskey or vodka daily and beer Last use: 01/17/2022 Lack of Transportation: No Lack of Food: Never True Current Housing: I Have Housing Concerned About Future Housing: No Difficulty Paying Gas/Electric Bills: No Difficulty Paying for Meds: No Currently Unemployed: No Education: Bachelor's Degree Difficulty w/ Childcare or Family Care: No Living arrangements: with family Occupation/Education: occupation 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 HEAD: Normocephalic, atraumatic. EYES: PERRLA and EOMI. ENT: Nares clear, no rhinorrhea or epistaxis. Mucous membranes moist. NECK: Supple. CHEST: Clear to auscultation. No respiratory distress. HEART: Regular rate and rhythm. No murmur heard. Normal peripheral pulses. ABDOMEN: Soft, nontender, nondistended, normal active bowel sounds. EXTREMITIES: Normal range of motion. No edema. SKIN: Warm, dry, no rash. NEURO: No focal deficits. Alert and oriented x3. Patient was not tremulous PSYCH: Normal mood and affect. Course Vital Signs Vital signs: Vital Signs Temperature 36.3 C L 11/28/24 02:17 Pulse Rate 135 H 11/28/24 02:17 Respiratory Rate 23 H 11/28/24 02:17 Blood Pressure 153/109 H 11/28/24 02:17 Pulse Oximetry 97 11/28/24 02:17 Temperature 36.3 C L 11/28/24 02:17 Pulse Rate 135 H 11/28/24 02:17 Respiratory Rate 23 H 11/28/24 02:17 Blood Pressure 153/109 H 11/28/24 02:17 Pulse Oximetry 97 11/28/24 02:17 Medical Decision Making MDM Narrative Medical decision making narrative: Differential diagnosis includes alcohol withdrawal, alcohol abuse The patient is currently not tremulous alert and oriented not having any episodes of seizures at this time. The patient was offered evaluation including blood alcohol testing hydration and further evaluation it was explained to the patient that he may not meet medical criteria for admission for acute detox at this time as he is not having signs of delirium tremens. Patient was offered hydration and medical screening exam the patient chose to leave at this time. Vital Signs Vital Signs: Vital Signs Temperature 36.3 C L 11/28/24 02:17 Pulse Rate 135 H 11/28/24 02:17 Respiratory Rate 23 H 11/28/24 02:17 Blood Pressure 153/109 H 11/28/24 02:17 Pulse Oximetry 97 11/28/24 02:17 Temperature 36.3 C L 11/28/24 02:17 Pulse Rate 135 H 11/28/24 02:17 Respiratory Rate 23 H 11/28/24 02:17 Blood Pressure 153/109 H 11/28/24 02:17 Pulse Oximetry 97 11/28/24 02:17 Discharge Plan Discharge Clinical Impression: Alcoholism Patient Disposition: Left Against Medical Advice Condition: Stable Patient Language: Mosotho Prescriptions: No Action levetiracetam 500 mg tablet 500 mg PO BID buspirone 10 mg tablet 10 mg PO TID gabapentin 300 mg capsule 300 mg PO TID amitriptyline 50 mg tablet 100 mg PO HS MDD 100 Follow-up/Referrals: PHYSICIAN NOT ON STAFF,NONSTAFF [Primary Care Provider] -
[2024-11-28 02:17] VITALS: BP 153/109; PULSE 135; RESP 23; TEMP 36.3; O2SAT 97
--- NOTE | 2024-11-28 02:25 | PC.NURSE ---
Patient and mother voicing concerns about admission for alcohol detox. EDP informed pt and mother that he may not meet admission criteria but he would still like pt to be seen and treated. Pt and mother agreed to leave AMA and be seen at [facility] where pt has been admitted 40-50 times for detox . AMA paperwork signed by patient. Vitals at this time T 97.4 HR 135 R 23 O2 97 BP 153/109. Pt ambulated to ED exit with steady gait at this time.
--- OUTSIDE RECORDS SUMMARY | 2024-11-28 03:05 | XMS_ITS | Clinical Summary ---
Author Organization [facility] Address [address] [place] [address] Care Team Providers Care Advanced Practice Registered Nurse Name Role Phone [place] Mitchel Dahiana CHAUHAN Primary Care Provider [phone] Allergies Active Allergy Reactions Criticality Noted Date [...] Date Alcohol intoxication 04/25/2023 023 Alcohol withdrawal ([facility]) 04/23/2023 04/25/2023 Social History Tobacco [...] often do you attend chur ch or protestant services? Never 04/23/2023 Do you belong to any clubs o r organizations such as christianity groups, unions, fraternal or athletic groups, or [...] and heating? Not hard at all 04/23/2023 [facility] - Occupational Stress [...] place to sleep or slept in a detention (including now)? 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
--- OUTSIDE RECORDS SUMMARY | 2024-11-28 03:05 | XMS_ITS | Continuity of Care Document ---
Author Organization [facility] Address [address] [place] [address] Phone Care Team Providers Care Mechanical Assembly Name Role Phone Nick Briceño DO Unavailable Unavailable Advance Directives Directive Yes / No Effective Date File Name No Information Encounters Encounter Description Practice Location Reason(s) For Visit Diagnoses Date Provider Providers Copied on Encounter [facility], [address], [place], [place], [id number], tel:[phone] [facility] No Information Navarro Harvey. [address] [place], [address], [place]. tel: [phone] Family History Family Member Type Diagnosis Age At Onset No Information Payers Payer name Insurance type Covered republican ID Authoriza tion(s) No Information Social History Type Description Quantity Date Captured Comments Sex Male Smoking Status No Information Chief Complaint And Reason For Visit No Information Reason For Referral Reason For Referral No Information History Of Present Illness Encounter Date Complaint History Of Prese nt Illness No Information Functional Status Date Functional Assessmen t No Information Instructions Date Instruction Additional Infor mation No Information Assessments Type Assessment Date No Information Patient Care Teams Name Effective Dates (start - stop) Status Members No Information
--- OUTSIDE RECORDS SUMMARY | 2024-11-28 03:06 | XMS_ITS | Patient Health Summary ---
Author Organization [facility] Address [address] 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 This disclosure is being madepursuant to the Care Everywhere program and may not contain all information available regarding this patient. Last updated 18.[facility] Allergies * Penicillins(Unknown) * Diazepam(Other) * Penicillins(Unknown),Inactive Medications * Be aware that medications may not be up to date on this document. Alwaysverify current medications with the patient. * amitriptyline (Elavil) 50 MG tablet(Started 08/11/2024) Take 1 (one) tablet by mouth at bedtime * folic acid (Folvite) 1 MG tablet(Started 08/11/2024) Take 1 (one) tablet by mouth once daily * kgsvgdmx-ixnclhymf-wgyglgyijsp (Maalox; Mylanta) 200-200-20 MG/5ML suspension (Started 08/11/2024) [...] 11/23/2025 * Cholecalciferol (vitamin D3) 1.25 MG (03746 UT) capsule(Started 11/30/2024) Take 1 (one) capsule [...] heating? Not hard at all 11/23/2024 [facility] Occupat ional Health - Occupational Stress [...] any time in the past 12 m [facility], were you homeless or living in a residential (including now)? No 11/23/2024 Sex and Gender Information Value Date Recorded Sex Assigned at Not on file Gender Identity Male 06/20/2021 9:48 PM CDT Sexual Orientation Not on file Last Filed Vital Signs Vital Sign Reading Time Taken Comments Blood Pressure 139/95 11/23/2024 8:02 AM LENS ENGRAVER Pulse 86 11/23/2024 8:02 AM LENS ENGRAVER Temperature 36.4 C (97.6 F) 11/23/2024 8:02 AM LENS ENGRAVER Respiratory Rate 17 11/23/2024 8:02 AM LENS ENGRAVER Oxygen Saturation 99% 11/23/2024 8:02 AM LENS ENGRAVER Inhaled Oxygen Concentration 30% 03/07/2021 3 :14 PM CDT Weight 92.4 kg (203 lb 9.6 oz) 11/21/2024 12:20 PM LENS ENGRAVER Height 188 cm (6' 2 ) 11/21/2024 12:20 PM LENS ENGRAVER Body Mass Index 26.14 11/21/2024 12:20 PM LENS ENGRAVER Medical Devices Implanted Type Area Architecture Professor Device Identifier Shelf Expiration Date Model / Serial / Lot Nail Im 11mm 180mm Affixus Hip Fem Goal Implanted:Qty: 1 on 03/08/2021 by Madhav Elizabeth DO at [facility] Right: Femur [employer] 10/28/2030 [id number] / / [id number] Screw 10.5mm 95mm 6.5mm Lag Slf-Tap Rvrs Implanted:Qty: 1 on 03/08/2021 by Madhav Elizabeth DO at [facility] Right: Femur [employer] 08/14/2028 [id number] / / [id number] Screw 5mm 38mm 3.5mm Hex Drvr Sckt Hip Implanted:Qty: 1 on 03/08/2021 by Madhav Elizabeth DO at [facility] Right: Femur [employer] 04/29/2030 [id number] / / [id number] Explanted Type Area Architecture Professor Device Identifier Shelf Expiration Date Model / Serial / Lot Wire K 2mm 350mm 1 End Troc Pnt Thrd Ss Explanted:Qty: 2 on 03/08/2021 by Madhav Elizabeth DO at [facility] Right: Femur [employer] Trauma 07/29/2029 [id number] / / [id number] Procedures * CARDIAC RHYTHM STRIP ORDER(Performed 11/25/2024) [...] morphology, unspecified portion of femur, initial encounter ([facility]) * XR CHEST 1VW PORTABLE(Performed 03/27/2021) Performed [...] Trauma * ENDOTRACHEAL TUBE NOTE(Performed 03/08/2021) * SC OPEN RX FEMUR FX+INTRAMED EMILY(Performed 03/08/2021) Performed for Type I or II open fracture of right femur, unspecified fracture morphology, unspecified portion of femur, initial encounter ([facility]) * GLUCOSE - POINT OF CARE(Performed 03/08/2021) [...] 03/02/2021) * ARTERIAL LINE NOTE(Performed 03/02/2021) * SC EXPLORATORY OF ABDOMEN(Performed 03/02/2021) Performed for Blunt [...] of kidney, unspecified laterality, initial encounter * SC EXPLORATORY OF ABDOMEN(Performed 03/01/2021) Performed for Trauma [...] CARDIAC RHYTHM STRIP ORDER (11/25/2024 5:00 PM LENS ENGRAVER) Only the most recent of4 resultswithin the time period is included. Narrative 11/25/2024 5:00 PM LENS ENGRAVER Ordered by an unspecified provider. Scanned Document CARDIAC SERVICES ORD ERABLES * (ABNORMAL) RENAL FUNCTION PANEL (11/23/2024 4:44 AM LENS ENGRAVER) Only the most recent of2 resultswithin the time period is included. Glucose 86 70 - 99 mg/dL 11/23/2024 5:42 AM [facility] Sodium 138 136 - 145 mmol/L 11/23/2024 5:[address] [facility] Potassium 3.6 3.5 - 5.1 mmol/L 11/23/2024 5:[address] [facility] Chloride 108(H) 98 - 107 mmol/L 11/23/2024 5:[address] [facility] CO2 22 22 - 29 mmol/L 11/23/2024 5:[address] [facility] Calcium 8.6 8.4 - 10.4 mg/dL 11/23/2024 5:[address] [facility] Anion Gap 8 6 - 16 mmol/L 11/23/2024 5:[address] [facility] BUN 6 5.3 - 18.7 mg/dL 11/23/2024 5:[address] [facility] Creatinine 0.74 0.72 - 1.25 mg/dL 11/23/2024 5:[address] [facility] Albumin 3.4 3.4 - 5.0 gm/dL 11/23/2024 5:[address] [facility] Phosphorus 3.4 2.5 - 4.5 mg/dL 11/23/2024 5:[address] [facility] eGFR by CKD-EPI >90 >=90 mL/min/1.7 3 m2 11/23/2024 5:42 AM LENS ENGRAVER [facility] Blood BLOOD SPECIMEN / Unknown Lab Venipuncture / Unknown 11/23/2024 4:44 AM LENS ENGRAVER 11/23/2024 5:09 AM LENS ENGRAVER Reynaldo Almazan MD LAB - CHEMISTRY MANUEL ORTA Performing Organization Address [facility]/ZIP Co de Phone Number [facility] [address] [place] [id number] * LACTIC ACID BLOOD (11/23/2024 4:44 AM LENS ENGRAVER) Only the most recent of5 resultswithin the time period is included. Lactic Acid 0.925 <=2 mmol/L 11/23/2024 5:37 AM LENS ENGRAVER [facility] Blood BLOOD SPECIMEN / Unknown Lab Venipuncture / Unknown 11/23/2024 4:44 AM LENS ENGRAVER 11/23/2024 5:08 AM LENS ENGRAVER Reynaldo Almazan MD LAB - CHEMISTRY ORDLori ORTA Performing Organization Address [facility] Co de Phone Number [facility] [address] [place] [address] * EKG 12-LEAD (11/22/2024 1:57 PM LENS ENGRAVER) Only the most recent of7 resultswithin the time period is included. Ventricular Rate 79 BPM [facility] Atrial Rate 79 BPM [facility] P-R Interval 150 ms [facility] QRS Duration ms 86 ms [facility] Q-T Interval ms 370 ms [facility] QTC Calculation (Bezet) 424 ms [facility] Calculated P [place] 56 degrees [facility] Calculated R [place] 35 degrees [facility] Calculated T [place] 24 degrees [facility] Interpretation EKG NORMAL SINUS RHYTHM WITH SINUS ARRHYTHMIA NORMAL ECG Confirmed by DO COBURN STEPHANIE ([id number]) on 11/22/2024 6:29:46 PM [facility] 11/22/2024 1:57 PM LENS ENGRAVER 11/22/2024 6:29 PM LENS ENGRAVER Reynaldo Almazan MD ECG ORDERABLES [facility] M[facility] * (ABNORMAL) VITAMIN D 25-HYDROXY (11/22/2024 2:48 AM LENS ENGRAVER) Only the most recent of2 resultswithin the time period is included. Pathologist [facility] Vitamin D, 25 Hydroxy 22.2(L) 30 - 80 ng/mL 11/22/2024 10:[address] [facility] Blood BLOOD SPECIMEN / Unknown Lab Venipuncture / Unknown 11/22/2024 2:48 AM LENS ENGRAVER 11/22/2024 3:40 AM LENS ENGRAVER Narrative [facility] - 11/22/2024 10:39 AM [facility] Vitamin D Status: Deficiency <20 ng/mL Insufficiency 20-30 ng/mL Sufficiency 30-100 ng/mL Toxicity >100 ng/mL Reynaldo Almazan MD LAB - CHEMISTRY ORDLori ORTA Performing Organization Address City/[facility] Co de Phone Number [facility] [address] [place] [address] * COMPREHENSIVE METABOLIC PANEL (11/22/2024 2:48 AM LENS ENGRAVER) Only the most recent of20 resultswithin the time period is included. [facility] Glucose 90 70 - 99 mg/dL 11/22/2024 4:[address] [facility] Sodium 136 136 - 145 mmol/L 11/22/2024 4:[address] [facility] Potassium 3.8 3.5 - 5.1 mmol/L 11/22/2024 4:[address] [facility] Chloride 102 98 - 107 mmol/L 11/22/2024 4:[address] [facility] CO2 23 22 - 29 mmol/L 11/22/2024 4:[address] [facility] Calcium 9.0 8.4 - 10.4 mg/dL 11/22/2024 4:[address] [facility] Anion Gap 11 6 - 16 mmol/L 11/22/2024 4:[address] [facility] BUN 6 5.3 - 18.7 mg/dL 11/22/2024 4:[address] [facility] Creatinine 0.80 0.72 - 1.25 mg/dL 11/22/2024 4:[address] [facility] Alkaline Phosphatase 53 40 - 150 U/L 11/22/2024 4:[address] [facility] ALT 32 0 - 55 U/L 11/22/2024 4:[address] [facility] AST 28 5 - 34 U/L 11/22/2024 4:[address] [facility] Protein Total 7.2 6.4 - 8.3 gm/dL 11/22/2024 4:[address] [facility] Albumin 3.8 3.4 - 5.0 gm/dL 11/22/2024 4:[address] [facility] Bilirubin Total 1.2 0.2 - 1.2 mg/dL 11/22/2024 4:[address] [facility] eGFR by CKD-EPI >90 >=90 mL/min/1.7 3 m2 11/22/2024 4:[address] [facility] Blood BLOOD SPECIMEN / Unknown Lab Venipuncture / Unknown 11/22/2024 2:48 AM LENS ENGRAVER 11/22/2024 3:40 AM LENS ENGRAVER Reynaldo Almazan MD [facility] Organization Address City/State/ZIP Co de Phone Number [facility] [address] [place] [address] * (ABNORMAL) URINALYSIS REFLEX TO MICROSCOPIC NO CULTURE (11/21/2024 1:53 PM LENS ENGRAVER) Only the most recent of3 resultswithin the time period is included. Color UA Yellow Yellow, Straw 11/21/2024 2:[address] [facility] Clarity UA Clear Clear 11/21/2024 2:[address] [facility] Glucose UA Normal Normal 11/21/2024 2:[address] [facility] Bilirubin UA Negative Negative 11/21/2024 2:[address] [facility] Ketone UA 1+(A) Negative 11/21/2024 2:[address] [facility] Specific [place] UA 1.018 1.005 - 1.030 11/21/2024 2:[address] [facility] Blood UA Negative Negative 11/21/2024 2:17 PM LENS ENGRAVER [facility] pH UA 6.5 5.0 - 9.0 pH 11/21/2024 2:17 PM LENS ENGRAVER [facility] Protein UA 2+(A) Negative 11/21/2024 2:17 PM LENS ENGRAVER [facility] Urobilinogen UA Normal Normal mg/dL 025 2:17 PM LENS ENGRAVER [facility] Nitrite UA Negative Negative 11/21/2024 2:17 PM LENS ENGRAVER [facility] Leukocyte UA Negative Negative 11/21/2024 2:17 PM LENS ENGRAVER [facility] RBC UA 3-5 0 - 5 # /hpf 11/21/2024 2:17 PM LENS ENGRAVER [facility] WBC UA 0-5 0 - 5 # /hpf 11/21/2024 2:17 PM LENS ENGRAVER [facility] Bacteria UA None Seen None Seen 11/21/2024 2:17 PM LENS ENGRAVER [facility] Squamous Epithelial Cells None Seen 0 - 5 /hpf 11/21/2024 2:17 PM LENS ENGRAVER [facility] Urine URINE SPECIMEN OBTAINED BY CLEAN CATCH PROCEDURE / Unknown Collection / Unknown 11/21/2024 1:53 PM LENS ENGRAVER 11/21/2024 2:10 PM LENS ENGRAVER [facility] - 11/21/2024 2:17 PM LENS ENGRAVER Gagandeep Bone DO LAB - URINALYSIS ORD ERABLES [facility] [address] [place], [place] [id number] * (ABNORMAL) URINE DRUG SCREEN IMMUNOASSAY (11/21/2024 1:53 PM LENS ENGRAVER) Only the most recent of6 resultswithin the time period is included. Pathologist [facility] Amphetamines Screen Urine Not detected Not detected 11/21/2024 3:14 PM LENS ENGRAVER [facility] Barbiturates Screen Urine Detected(A) Not detected 11/21/2024 3:14 PM LENS ENGRAVER [facility] Benzodiazepines Screen Urine Detected(A) Not detected 11/21/2024 3:14 PM LENS ENGRAVER [facility] Cannabinoids Screen Urine Detected(A) Not detected 11/21/2024 3:14 PM LENS ENGRAVER [facility] Cocaine Screen Urine Not detected Not detected 11/21/2024 3:14 PM LENS ENGRAVER [facility] Fentanyl Urine Not detected Not detected 11/21/2024 3:[address] [facility] Methadone Screen Urine Not detected Not detected 11/21/2024 3:[address] [facility] Opiate Screen Urine Not detected Not detected 11/21/2024 3:[address] [facility] Phencyclidine Screen Urine Not detected Not detected 11/21/2024 3:[address] [facility] Urine URINE / Unknown Collection / Unknown 11/21/2024 1:53 PM LENS ENGRAVER 11/21/2024 2:10 PM [facility] Narrative [facility] - 11/21/2024 3:14 PM [facility] This drug screen is designed for MEDICAL [...] URINE CHEMISTR Y ORDERABLES Performing Organization Address City/State/[facility] Co de Phone Number [facility] [address] [place], [place] [id number] * SARS-COV-2 (COVID-19) FLU A/B RSV PCR RAPID (11/21/2024 11:29 AM [facility]) COVID-19 PCR Not detected Not detected 11/21/19 12:[address] [facility] Influenza A PCR Not detected Not detected 11/21/2024 12:[address] [facility] Influenza B PCR Not detected Not detected 11/21/2024 12:[address] [facility] RSV PCR Not detected Not detected 11/21/2024 12:[address] [facility] Microbiology SPECIMEN FROM NASOPHARYNGEAL STRUCTURE / Unknown Collection / Unknown 11/21/2024 11:29 AM LENS ENGRAVER 11/21/2024 11:29 AM [facility] Narrative [facility] - 11/21/2024 12:07 PM LENS ENGRAVER This nucleic acid amplification assay has been [...] - MICROBIOLOGY O RDERABLES Performing Organization Address [facility] Co de Phone Number [facility] [address] [place], [place] [phone] * LEVETIRACETAM LEVEL (11/21/2024 11:29 AM LENS ENGRAVER) Only the most recent of2 resultswithin the time period is included. Levetiracetam 24.63 10 - 40 ug/mL 11/21/2024 11:55 AM LENS ENGRAVER [facility] Blood BLOOD SPECIMEN / Unknown Venipuncture / Unknown 11/21/2024 11:29 AM LENS ENGRAVER 11/21/2024 11:29 AM LENS ENGRAVER Theresa Espinoza TEST ARCHITECT-SIGNALING DESIGN ENGINEER LAB - THERAP EUTIC DRUG MONITORING ORDERABLES Performing Organization Address [facility] Co de Phone Number [facility] [address] [place] [address] * HYDROXYBUTYRATE BETA (11/21/2024 11:29 AM LENS ENGRAVER) Beta-Hydroxybu tyrate <0.50 <0.50 mmol/L 11/21/2024 11:45 AM LENS ENGRAVER [facility] Blood BLOOD SPECIMEN / Unknown Venipuncture / Unknown 11/21/2024 11:29 AM LENS ENGRAVER 11/21/2024 11:29 AM LENS ENGRAVER Narrative [facility] - 11/21/2024 11:45 AM LENS ENGRAVER Results >1.5 mmol/L may be indicative of diabetic ketoacidosis. Use in conjunction with Serum Glucose levels. Aleta Vieira MD LAB - CHEMISTRY MANUEL ORTA Performing Organization Address City/[facility]/ZIP Co de Phone Number [facility] [address] [place], [place] [id number] * (ABNORMAL) BASIC METABOLIC PANEL (CALCIUM TOTAL) (11/21/2024 11:29 AM LENS ENGRAVER) Only the most recent of52 resultswithin the time period is included. [facility] Glucose 113(H) 70 - 99 mg/dL 11/21/2024 11:[address] [facility] Sodium 137 136 - 145 mmol/L 11/21/2024 11:[address] [facility] Potassium 3.7 3.5 - 5.1 mmol/L 11/21/2024 11:[address] [facility] Chloride 102 98 - 107 mmol/L 11/21/2024 11:[address] [facility] CO2 18(L) 22 - 29 mmol/L 11/21/2024 11:[address] [facility] Calcium 9.3 8.4 - 10.4 mg/dL 11/21/2024 11:[address] [facility] Anion Gap 17(H) 6 - 16 mmol/L 11/21/2024 11:[address] [facility] BUN 10 5.3 - 18.7 mg/dL 11/21/2024 11:[address] [facility] Creatinine 0.93 0.72 - 1.25 mg/dL 11/21/2024 11:[address] [facility] eGFR by CKD-EPI >90 >=90 mL/min/1.7 3 m2 11/21/2024 11:[address] [facility] Blood BLOOD SPECIMEN / Unknown Venipuncture / Unknown 11/21/2024 11:29 AM LENS ENGRAVER 11/21/2024 11:29 AM LENS ENGRAVER Theresa Espinoza TEST ARCHITECT-SIGNALING DESIGN ENGINEER LAB - CHEMIS TRY ORDERABLES Performing Organization Address [facility]/ZIP Co de Phone Number [facility] [address] [place], [place] [phone] * PHOSPHORUS BLOOD (11/21/2024 11:29 AM LENS ENGRAVER) Only the most recent of30 resultswithin the time period is included. Phosphorus 3.7 2.5 - 4.5 mg/dL 11/21/2024 11:48 AM LENS ENGRAVER [facility] Blood BLOOD SPECIMEN / Unknown Venipuncture / Unknown 11/21/2024 11:29 AM LENS ENGRAVER 11/21/2024 11:29 AM LENS ENGRAVER Theresa Espinoza TEST ARCHITECT-SIGNALING DESIGN ENGINEER LAB - CHEMIS TRY ORDERABLES [facility] [address] [place] [phone] * XR Chest 1Vw Portable (11/21/2024 10:38 AM LENS ENGRAVER) Only the most recent of15 resultswithin the time period is included. Anatomical Region Laterality Modality Chest Radiographic Ashley ging 11/21/2024 10:4 2 AM LENS ENGRAVER Narrative 11/21/2024 10:42 AM LENS ENGRAVER PROCEDURE: XR CHEST 1VW PORTABLE DATE/TIME OF [...] * SLIDE SCAN HEMATOLOGY (11/21/2024 8:50 AM LENS ENGRAVER) Pathologist [facility] RBC Morphology NORMAL 11/21/2024 10:[address] [facility] Blood BLOOD SPECIMEN / Unknown Venipuncture / Unknown 11/21/2024 8:50 AM LENS ENGRAVER 11/21/2024 8:51 AM LENS ENGRAVER Gagandeep Bone DO LAB - HEMATOLOGY ORD ERABLES [facility] [address] [place] [address] * (ABNORMAL) CBC W AUTO DIFFERENTIAL (11/21/2024 8:50 AM LENS ENGRAVER) Only the most recent of18 resultswithin the time period is included. Pathologist [facility] WBC 10.1 4.0 - 10.7 x10E9/L 11/21/2024 10:[address] [facility] RBC Count 5.62 4.30 - 5.80 x10E12/L 11/21/2024 10:[address] [facility] Hemoglobin 17.4 13.3 - 17.5 g/dL 11/21/2024 10:[address] [facility] Hematocrit 47.1 38.7 - 51.1 % 11/21/2024 10:[address] [facility] MCV 83.8 80.0 - 98.0 fL 11/21/2024 10:[address] [facility] MCH 31.0 26.7 - 33.6 pg 11/21/2024 10:[address] [facility] MCHC 36.9(H) 31.7 - 36.3 g/dL 11/21/2024 10:[address] [facility] RDW-CV 12.2 11.3 - 14.8 % 11/21/2024 10:[address] [facility] Platelet Count 311 150 - 420 x10E9/L 11/21/2024 10:[address] [facility] MPV 9.8 7.8 - 11.4 fL 11/21/2024 10:[address] [facility] Neutrophil % 71.9 41.0 - 74.0 % 11/21/2024 10:[address] [facility] Lymphocyte % 23.5 17.0 - 47.0 % 11/21/2024 10:[address] [facility] Monocyte % 3.5 3.0 - 11.0 % 11/21/2024 10:[address] [facility] Eosinophil % 0.2 0.0 - 7.0 % 11/21/2024 10:[address] [facility] Basophil % 0.6 0.0 - 1.6 % 11/21/2024 10:[address] [facility] Immature Granulocytes % 0.3 0.0 - 1.0 % 11/21/2024 10:[address] [facility] Neutrophil Absolute 7.24 1.60 - 7.50 x10E9/L 11/21/2024 10:[address] [facility] Lymphocyte Absolute 2.37 1.00 - 4.40 x10E9/L 11/21/2024 10:[address] [facility] Monocyte Absolute 0.35 0.15 - 1.00 x10E9/L 11/21/2024 10:[address] [facility] Eosinophil Absolute 0.02 0.00 - 0.60 x10E9/L 11/21/2024 10:[address] [facility] Basophil Absolute 0.06 0.00 - 0.13 x10E9/L 11/21/2024 10:[address] [facility] Blood BLOOD SPECIMEN / Unknown Venipuncture / Unknown 11/21/2024 8:50 AM LENS ENGRAVER 11/21/2024 8:51 AM [facility] Gagandeep Bone DO LAB - HEMATOLOGY ORD ERABLES [facility] [address] [place] [address] * MAGNESIUM BLOOD (11/21/2024 8:50 AM [facility]) Only the most recent of33 resultswithin the time period is included. Magnesium 1.8 1.6 - 2.6 mg/dL 11/21/2024 9:[address] [facility] Blood BLOOD SPECIMEN / Unknown Venipuncture / Unknown 11/21/2024 8:50 AM LENS ENGRAVER 11/21/2024 8:51 AM LENS ENGRAVER Gagandeep Bone DO LAB - CHEMISTRY MANUEL ORTA Performing Organization Address City/[facility]/ZIP Co de Phone Number [facility] [address] [place] [address] * LIPASE BLOOD (11/21/2024 8:50 AM LENS ENGRAVER) Only the most recent of11 resultswithin the time period is included. Lipase 25 <60 U/L 11/21/2024 9:12 AM LENS ENGRAVER [facility] Blood BLOOD SPECIMEN / Unknown Venipuncture / Unknown 11/21/2024 8:50 AM LENS ENGRAVER 11/21/2024 8:51 AM LENS ENGRAVER Gagandeep Bone DO LAB - CHEMISTRY MANUEL ORTA Performing Organization Address [facility] Co de Phone Number [facility] [address] [place] [address] * (ABNORMAL) ALCOHOL ETHYL BLOOD (11/21/2024 8:50 AM LENS ENGRAVER) Only the most recent of5 resultswithin the time period is included. Ethanol 77.0(H) <10 mg/dL 11/21/2024 9:[address] [facility] Ethanol Calculated 0.077 <=0.100 gm/dL 11/21/2024 9:[address] [facility] Blood BLOOD SPECIMEN / Unknown Venipuncture / Unknown 11/21/2024 8:50 AM LENS ENGRAVER 11/21/2024 8:51 AM LENS ENGRAVER Narrative [facility] - 11/21/2024 9:18 AM LENS ENGRAVER Ethanol Interp <10: None Detected Depression of [...] Bone DO LAB - CHEMISTRY ORDE MARIVEL [facility] [address] [place] [address] * GLUCOSE - POINT OF CARE (10/04/2024 12:57 PM LENS ENGRAVER) Only the most recent of49 resultswithin the time period is included. Glucose WB/POC 83 70 - 99 mg/dL 10/04/2024 1:[address] [facility] Specimen Type Cap Fingerstick 2024 1:[address] [facility] Blood BLOOD SPECIMEN / Unknown 10/04/2024 12:57 PM LENS ENGRAVER 10/04/2024 1:06 PM LENS ENGRAVER Vargas Boothe MD LAB - POINT OF CARE ORDERABLES Performing Organization Address [facility]/[place] [facility]/ZIP Co de Phone Number [facility] [address] [place] [address] * (ABNORMAL) CBC W/O DIFFERENTIAL (10/03/2024 2:59 AM LENS ENGRAVER) Only the most recent of53 resultswithin the time period is included. WBC 4.0 4.0 - 10.7 x10E9/L 10/03/2024 4:[address] [facility] RBC Count 3.27(L) 4.30 - 5.80 x10E12/L 10/03/2024 4:[address] [facility] Hemoglobin 10.6(L) 13.3 - 17.5 g/dL 10/03/2024 4:[address] [facility] Hematocrit 29.9(L) 38.7 - 51.1 % 10/03/2024 4:[address] [facility] MCV 91.4 80.0 - 98.0 fL 10/03/2024 4:[address] [facility] MCH 32.4 26.7 - 33.6 pg 10/03/2024 4:[address] [facility] MCHC 35.5 31.7 - 36.3 g/dL 10/03/2024 4:[address] [facility] RDW-CV 12.7 11.3 - 14.8 % 10/03/2024 4:[address] [facility] Platelet Count 93(L) 150 - 420 x10E9/L 10/03/2024 4:[address] [facility] MPV 10.5 7.8 - 11.4 fL 10/03/2024 4:[address] [facility] NRBC 1.0(H) <=0.0 /100 WBC 10/03/2024 4:[address] [facility] Blood BLOOD SPECIMEN / Unknown Venipuncture / Unknown 10/03/2024 2:59 AM LENS ENGRAVER 10/03/2024 3:40 AM LENS ENGRAVER Aleta Vieira MD LAB - HEMATOLOGY [place] Performing Organization Address City/[facility]/ZIP Co de Phone Number [facility] [address] [place] [address] [phone] * TROPONIN-I HIGH SENSITIVE REFLEX 1HOUR (10/02/2024 12:31 PM LENS ENGRAVER) Troponin I High Sensitive <3 <=35 ng/L 10/02/2024 1:12 PM LENS ENGRAVER [facility] Delta Troponin I HS 10/02/2024 1:[address] [facility] Comment:Delta value intentio jem not calculated. Baseline to 1 hour specimen collection interval exceeded. Blood BLOOD SPECIMEN / Unknown Venipuncture / Unknown 10/02/2024 12:31 PM LENS ENGRAVER 10/02/2024 12:42 PM LENS ENGRAVER Orlando Bowers MD LAB - CHEMISTRY MANUEL ORTA [facility] [address] [place] [address] [phone] * TROPONIN-I HIGH SENSITIVE BASELINE + 1HR (10/02/2024 8:23 AM LENS ENGRAVER) Troponin I High Sensitive <3 <=35 ng/L 10/02/2024 8:[address] [facility] Blood BLOOD SPECIMEN / Unknown Venipuncture / Unknown 10/02/2024 8:23 AM LENS ENGRAVER 10/02/2024 8:28 AM LENS ENGRAVER Juvencio Virk MD LAB - CHEMISTRY MANUEL ORTA [facility] [address] [place] [phone] * Critical Care (10/02/2024 4:48 AM LENS ENGRAVER) Narrative Wei Fan DO - 10/02/2024 4:48 AM LENS ENGRAVER Wei Fan DO 10/02/2024 6:49 AM Critical [...] (ABNORMAL) VANCOMYCIN LEVEL TROUGH (08/10/2024 5:49 PM LENS ENGRAVER) Only the most recent of2 resultswithin the time period is included. Vancomycin Trough 20.2(H) 10.0 - 20.0 ug/mL 08/10/2024 6:30 PM LENS ENGRAVER [facility] Blood BLOOD SPECIMEN / Unknown Lab Venipuncture / Unknown 08/10/2024 5:49 PM LENS ENGRAVER 08/10/2024 6:12 PM LENS ENGRAVER Luba Mendoza MD LAB - CHEMISTRY [place] [facility] [address] [place], [place] [phone] * VANCOMYCIN LEVEL PEAK (08/10/2024 1:41 PM LENS ENGRAVER) Vancomycin Peak 32.3 25.0 - 40.0 ug/mL 08/10/2024 2:13 PM LENS ENGRAVER [facility] Blood BLOOD SPECIMEN / Unknown Lab Venipuncture / Unknown 08/10/2024 1:41 PM LENS ENGRAVER 08/10/2024 1:54 PM LENS ENGRAVER Luba Mendoza MD LAB - CHEMISTRY ORD ERABLES [facility] [address] [place] [address] * CARDIAC EKG ORDER (08/10/2024 3:50 AM LENS ENGRAVER) Only the most recent of4 resultswithin the time period is included. Narrative 08/10/2024 3:50 AM LENS ENGRAVER Ordered by an unspecified provider. Scanned Document CARDIAC SERVICES ORD ERABLES * (ABNORMAL) CULTURE WOUND+GRAM STAIN (08/09/2024 6:11 PM LENS ENGRAVER) Culture Heavy Staphylococcus aureus methicillin-resista nt (MRSA)(A) LIVIER 08/12/2024 2:39 AM [facility] Comment:Staphylococcus aureu s methicillin-resistant (MRSA) detected by penicillin binding protein immunoassay. Contact precautions required. Conventional antibiotic susceptibility testing to follow. Gram Stain Light Gram-positive cocci 08/12/2024 2:39 AM [facility] Gram Stain Light Polymorphonuclear cells 08/12/2024 2:39 AM [facility] Microbiology ENTIRE FOREARM / Unknown Collection / Unknown 08/09/2024 6:11 PM LENS ENGRAVER 08/09/2024 6:44 PM LENS ENGRAVER Narrative [facility] - 08/12/2024 2:39 AM LENS ENGRAVER Methicillin-resistant Staphylococci (MRSA) are resistant to all [...] Jack MD LAB - MICROBIOLOGY O RDERABLES [facility] [address] [place], [place] [address], [facility] [phone] * CT Forearm Left W Contrast (08/09/2024 3:16 PM LENS ENGRAVER) Anatomical Region Laterality Modality Upper Extremity Computed Tomogra phy 08/09/2024 3:25 PM LENS ENGRAVER Impressions 08/09/2024 3:33 PM LENS ENGRAVER IMPRESSION: 1.No soft tissue mass or vascular [...] 08/09/2024 3:33 PM Narrative 08/09/2024 3:33 PM LENS ENGRAVER PROCEDURE: CT FOREARM LEFT W CONTRAST DATE/TIME [...] * CT CHEST PE (08/09/2024 10:09 AM LENS ENGRAVER) Anatomical Region Laterality Modality Chest Computed Tomogra phy 08/09/2024 10:1 7 AM LENS ENGRAVER Impressions 08/09/2024 10:18 AM LENS ENGRAVER IMPRESSION: 1. No focal filling defects seen to represent an acute pulmonary embolism. 2. No acute pulmonary process seen. 3. Likely hepatic steatosis seen. > Interpreting Provider: Kings Garcia MD on 08/09/2024 10:18 AM Narrative 08/09/2024 10:18 AM LENS ENGRAVER PROCEDURE: CT ANGIO CHEST PULM EMBOLISM DATE/TIME [...] ORDERABLES * CULTURE BLOOD (08/09/2024 8:50 AM LENS ENGRAVER) Only the most recent of6 resultswithin the time period is included. [facility] Culture No growth day 5 LIVIER 08/14/2024 2:32 PM LENS ENGRAVER [facility] Blood PERIPHERAL BLOOD / Unknown Venipuncture / Unknown 08/09/2024 8:50 AM LENS ENGRAVER 08/09/2024 8:59 AM LENS ENGRAVER Luba Mendoza MD LAB - MICROBIOLOGY ORDERABLES [facility]CRO[facility] [address] [place] [address], [facility] [phone] * (ABNORMAL) TROPONIN-I HIGH SENSITIVE (08/09/2024 7:56 AM LENS ENGRAVER) Only the most recent of4 resultswithin the time period is included. [facility] Troponin I High Sensitive 68(H) <=35 ng/L 08/09/2024 8:40 AM LENS ENGRAVER [facility] Blood BLOOD SPECIMEN / Unknown Venipuncture / Unknown 08/09/2024 7:56 AM LENS ENGRAVER 08/09/2024 8:18 AM LENS ENGRAVER Luba Mendoza MD LAB - CHEMISTRY ORD CannonballBLES Performing Organization Address [facility] Co de Phone Number [facility] [address] [place] [address] * B-TYPE NATRIURETIC PEPTIDE (08/09/2024 7:56 AM LENS ENGRAVER) BNP 35 <=100 pg/mL 08/09/2024 8:40 AM LENS ENGRAVER [facility] Blood BLOOD SPECIMEN / Unknown Venipuncture / Unknown 08/09/2024 7:56 AM LENS ENGRAVER 08/09/2024 8:18 AM LENS ENGRAVER Narrative [facility] - 08/09/2024 8:40 AM LENS ENGRAVER A cutoff of 100 pg/mL has been [...] Luba Mendoza MD LAB - CHEMISTRY ORD CannonballBLES Performing Organization Address City/[facility]/ZIP Co de Phone Number [facility] [address] [place] [phone] * XR CHEST 2VW (08/09/2024 7:21 AM LENS ENGRAVER) Only the most recent of2 resultswithin the time period is included. Anatomical Region Laterality Modality Chest Radiographic Ashley ging 08/09/2024 8:22 AM LENS ENGRAVER Narrative 08/09/2024 8:22 AM LENS ENGRAVER PROCEDURE: XR CHEST 2VW DATE/TIME OF EXAM: [...] and mediastinalcontours are normal. > Interpreting Provider: Kings Garcia MD on 08/09/2024 8:22 AM Luba Mendoza MD DIAGNOSTIC IMAGING ORDERABLES * VAS Left Venous Duplex Ue (08/06/2024 10:47 AM LENS ENGRAVER) Anatomical Region Laterality Modality Upper Extremity Ultrasound 08/06/2024 11:3 7 AM LENS ENGRAVER Narrative Procedure Note Jessee Abraham MD - 08/13/2024 [place] [address] Upper Extremity Venous Ultrasound Report Pat.Name: SHIRLEY ROGERS Pat.ID: [id number] St.Date: 08/06/2024 Refer.MD: Olena Sanford Exam Time: 11:37:00 AM Study Type:UE Venous Age: 2 1990,33Y Sex: MALE Sonogrphr: Shey Amaya RVT, NORA Pat. Stat.:Inpatient ICD - 9: l03.114 CPT - 4: 30166 Reason for Study: Swelling -Arm/hand, left Procedures: Upper Extremity Venous - Left [facility]: [facility] Visit ID: [id number] ++++++++++++++++++++++++++++++++++++ SUMMARY: ++++++++++++++++++++++++++++++++++++ Occlusive thrombus in the [...] Abdomen Pelvis W Cont (08/02/2024 10:13 PM LENS ENGRAVER) Only the most recent of3 resultswithin the time period is included. Anatomical Region Laterality Modality Chest, Abdomen, Pelvis Computed Tomography 08/03/2024 9:14 AM LENS ENGRAVER Impressions 08/03/2024 9:22 AM LENS ENGRAVER IMPRESSION: 1. Long segment circumferential esophageal wall thickening, most likely inflammatory in a patient this age. 2. Hepatic steatosis. > Interpreting Provider: Nam Galan MD on 08/03/2024 9:22 AM Narrative 08/03/2024 9:22 AM LENS ENGRAVER PROCEDURE: CT CHEST ABDOMEN PELVIS W CONT [...] Region Laterality Modality Pelvis, Lower Extremity Radiogra [facility] Imaging 07/27/2021 11:0 7 AM CDT Impressions 07/27/2021 11:24 AM CDT IMPRESSION: Internally fixed intertrochanteric femoral fracture is unchanged alignment. Dictated by Ramon Parr MD (radiology asst). I, Dr. EMRE ROLLINS MD have personally [...] is unchangedalignment. Dictated by Ramon Parr MD (radiology asst). I, Dr. EMRE ROLLINS MD have personally reviewed and interpreted this examination/study. This report was electronically signed by EMRE ROLLINS MD on07/27/2021 11:24 AM . Madhav Elizabeth DO DIAGNOSTIC IMAGING O RDERABLES * EEG (06/21/2021 12:00 PM CDT) 06/21/2021 12:0 0 PM CDT Narrative Procedure Note Maureen Price MD - 06/21/2021 12:03 PM CDT [facility] Electroencephalogram Report PATIENT NAME: SHIRLEY ROGERS MR#: [id number] ROOM#: [id number] CSN: [id number] ADMISSION DATE: 06/20/2021 SEX: M : 1990 [...] wakefulness, the background activity consisted of low [id number] hertz posterior dominant alpha rhythm. The background was well organizedwith good posterior to anterior gradient. During drowsiness, the backgroundwas replaced by irregular theta rhythm. Photic stimulation andhyperventilation did not elicit any abnormalities. There were no epileptiform dischargesnoticed. The EKG tracing showed a regular heart rate. IMPRESSION: This is a normal awake and drowsy EEG. Clinical correlationis suggested. DICTATOR: MAUREEN PRICE M.D. MP/MODL #:[id number] cc: Fina Armenta PA-C Fina Armenta PA-C [...] AM CDT Procedure Title: CT HEAD WO CONTRAST*[id number] HISTORY: Unspecified convulsions COMPARISON: None. TECHNIQUE: Helical CT acquisition without intravenous contrast of the head All CT scans at [facility] are performed using dose optimization techniques [...] - 06/21/2021 Procedure Title: CT HEAD WO CONTRAST*[id number] HISTORY: Unspecified convulsions COMPARISON: None. TECHNIQUE: Helical CT acquisition without intravenous contrast of the head All CT scans at [facility] are performed using dose optimization techniques [...] IMPRESSION Normal head CT. *Reading Radiologist: Jose Clrak on 06/21/2021 at 7:15 AM Nam Bolden MD CT ORDERABLES * TROPONIN I (06/20/2021 6:58 PM CDT) Troponin I <0.010 <0.038 ng/mL 06/20/2021 9:27 PM CDT [facility] Blood BLOOD SPECIMEN / Unknown Venipuncture / Unknown 06/20/2021 6:58 PM CDT 06/20/2021 7:01 PM CDT Fina Armenta PA-C LAB - CHEMISTRY MANUEL ORTA [facility] Organization Address City/State/ZIP Co de Phone Number [facility] [address] [place] [address] * XR CERVICAL SPINE 2 OR 3VW [...] HOLGUIN on 05/06/2021 1:09PM . Rox Cabrera APRN-SIGNALING DESIGN ENGINEER DIAGNOSTIC IMAG ING ORDERABLES * APHERESIS/TRANSFUSION ORDER [...] unchanged. Report dictated by Daniel Peterson MD (radiology asst). I, Dr. EMRE ROLLINS MD have personally [...] unchanged. Report dictated by Daniel Peterson MD (radiology asst). I, Dr. EMRE ROLLINS MD have personally reviewed and interpreted this examination/study. This report was electronically signed by EMRE ROLLINS MD on04/06/2021 10:33 AM . Madhav Elizabeth DO DIAGNOSTIC IMAGING O RDERABLES * (ABNORMAL) URINALYSIS W/MICROSCOPIC REFLEX TO CULTURE (03/25/2021 8:07 AM CDT) Color UA Yellow Straw, Yellow 03/25/2021 8:25 AM CDT [facility] Clarity UA Clear Clear 03/25/2021 8:25 AM CDT [facility] Specific [place] UA 1.006 1.005 - 1.030 03/25/2021 8:25 AM CDT [facility] pH UA 7.0 5.0 - 8.0 pH 03/25/2021 8:25 AM CDT [facility] Protein UA Negative Negative 03/25/2021 8:25 AM CDT [facility] Glucose UA Negative Negative 03/25/2021 8:25 AM CDT [facility] Ketone UA Negative Negative 03/25/2021 8:25 AM CDT [facility] Bilirubin UA Negative Negative 03/25/2021 8[facility] Blood UA Negative Negative 03/25/2021 8:25 AM [facility] Nitrite UA Negative Negative 03/25/2021 8:25 AM [facility] Leukocyte Esterase Negative Negative 03/25/2021 8:25 AM [facility] Urobilinogen UA 2.0(A) Negative mg/dL 03/25/2021 8:25 AM [facility] RBC UA 0-2 None Seen, 0-2, 3-5 /HPF 03/25/2021 8:25 AM [facility] WBC UA 0-5 None Seen, 0-5 /HPF 03/25/2021 8:25 AM [facility] Squamous Epithelial Cells UA None Seen None Seen, 0-2, 3-5 /HPF 03/25/2021 8:25 AM [facility] Urine URINE SPECIMEN OBTAINED BY CLEAN CATCH PROCEDURE / Unknown Collection / Unknown 03/25/2021 8:07 AM CDT 03/25/2021 8:15 AM CDT Narrative [facility] - 03/25/2021 8:25 AM CDT Culture Not Indicated Csae Rucker MD LAB - URINALYSI S ORDERABLES [facility] [address] [place] [id number], [facility] [phone] * LIPASE BODY FLUID STL (03/25/2021 8:05 AM CDT) Only the most recent of3 resultswithin the time period is included. Lipase Fluid 118 Not Established For Fluids Units/L 03/25/2021 9:36 AM [facility] Comment:The analytical perfo rmance of this test has been independently validated by [facility]. A reference range has not been established. Comparison of this result with the concentration in blood, serum or plasma is recommended. Fluid PERITONEAL FLUID / Unknown Collection / Unknown 03/25/2021 8:05 AM CDT 03/25/2021 8:15 AM CDT Case Rucker MD LAB - BODY FLUI D ORDERABLES Performing Organization Address City/[facility]/ZIP Co de Phone Number [address] [address], [facility] [phone] * AMYLASE BODY FLUID ([facility] ONLY) (03/25/2021 8:05 AM CDT) Only the most recent of3 resultswithin the time period is included. Amylase Fluid 66 Not Established For Fluids Units/L 03/25/2021 9:36 AM CDT [facility] Comment:The analytical perfo rmance of this test has been independently validated by [facility]. A reference range has not been established. Comparison of this result with the concentration in blood, serum or plasma is recommended. Fluid PERITONEAL FLUID / Unknown Collection / Unknown 03/25/2021 8:05 AM CDT 03/25/2021 8:15 AM CDT Case Rucker MD LAB - BODY FLUI D ORDERABLES Performing Organization Address [facility]/ZIP Co de Phone Number [address] [address], [facility] [phone] * SARS-COV-2 (COVID-19)+INFLU A+B PCR RAPID (03/25/2021 2:30 AM CDT) Only the most recent of2 resultswithin the time period is included. COVID-19 PCR Not detected Not detected 03/25/20 2:59 AM CDT [facility] Influenza A Rapid ARMANDO Not Detected Not Detected 03/25/2021 2:59 AM CDT [facility] Influenza B ARMANDO Rapid Not Detected Not Detected 03/25/2021 2:59 AM CDT [facility] Microbiology SPECIMEN FROM NASOPHARYNGEAL STRUCTURE / Unknown Collection / Unknown 03/25/2021 2:30 AM CDT 03/25/2021 2:32 AM CDT Narrative [facility] - 03/25/2021 2:59 AM CDT Influenza [...] acid amplification assay performance was validated by [facility]. This test has been authorized by [...] - MICROBIOLOGY O RDERABLES Performing Organization Address City/[facility]/ZIP Co de Phone Number [facility] [address] [place] [address], [facility] [phone] * PTT [facility] (03/24/2021 10:03 PM CDT) APTT 35.2 23.0 - 38.4 Seconds 03/24/2021 10:23 PM CDT [facility] Comment:Suggested therapeuti c range for full dose I.V. unfractionated heparin therapy for venous thromboembolism is 71 to 109 seconds. Blood BLOOD SPECIMEN / Unknown Venipuncture / Unknown 03/24/2021 10:03 PM CDT 03/24/2021 10:14 PM CDT Case Rucker MD LAB - COAGULATI ON ORDERABLES [facility] [address] [place] [address], [facility] [phone] * PT-INR [facility] (03/24/2021 10:03 PM CDT) Only the most recent of3 resultswithin the time period is included. PT 14.0 12.1 - 14.8 Seconds 03/24/2021 10:23 PM CDT [facility] INR 1.1 See Comment 03/24/2021 10:23 PM CDT [facility] Comment:The suggested therap eutic range for standard coumadin (warfarin) therapy is an INR of 2.0-3.0. For high-risk patients (Mechanical Mitral Valve Prosthesis, etc.), the suggested prophylactic therapeutic range is an INR of 2.5-3.5. Blood BLOOD SPECIMEN / Unknown Venipuncture / Unknown 03/24/2021 10:03 PM CDT 03/24/2021 10:14 PM CDT Case Rucker MD LAB - COAGULATI ON ORDERABLES Performing Organization Address [facility] Co de Phone Number [facility] [address] [place] [address], [facility] [phone] * TYPE + SCREEN PANEL (03/24/2021 10:03 PM CDT) Only the most recent of5 resultswithin the time period is included. Antibody Screen NEG 03/24/2021 11:25 PM CDT [facility] LAB ABO Rh AB POS 03/24/2021 11:25 PM CDT [facility] Blood Bank BLOOD SPECIMEN / Unknown Venipuncture / Unknown 03/24/2021 10:03 PM CDT 03/24/2021 10:34 PM CDT Case Rucker MD LAB - BLOOD BAN K ORDERABLES Performing Organization Address [facility]/ZIP Co de Phone Number [facility] [address] [place] [address], [facility] [phone] * AMYLASE BLOOD (03/24/2021 10:03 PM CDT) Only the most recent of2 resultswithin the time period is included. Amylase 92 25 - 125 U/L 03/24/2021 11:10 PM CDT [facility] Blood BLOOD SPECIMEN / Unknown 03/24/2021 10:03 PM CDT 03/24/2021 10:57 PM CDT Case Rucker MD LAB - CHEMISTRY ORDERABLES [facility] [address] [place] [address], [facility] [phone] * CT ABDOMEN PELVIS WO CONTRAST (03/24/2021 [...] - 8.3 g/dL 021 4:24 AM CDT [facility] Albumin 2.8(L) 3.4 - 5.0 g/dL 03/17/2021 4:24 AM CDT [facility] Bilirubin Total 2.3(H) 0.2 - 1.2 mg/dL 02/24 4:24 AM CDT [facility] Bilirubin Conjugated 1.5(H) 0.1 - 0.5 mg/dL 03/17/2021 4:24 AM T [facility] Bilirubin Unconjugated 0.8 Unconjugated Bilirubin is a calculated value: Reference ranges have not been established. mg/dL 03/17/2021 4:24 AM T [facility] Alkaline Phosphatase 541(H) 40 - 150 U/L 03/17/2021 4:24 AM T [facility] ALT 175(H) 5 - 55 U/L 03/17/2021 4:24 AM T [facility] AST 340(H) 5 - 34 U/L 03/17/2021 4:24 AM [facility] Albumin/Globulin Ratio 0.6(L) 1.1 - 2.3 03/17/2021 4:24 AM T [facility] Blood BLOOD SPECIMEN / Unknown Venipuncture / Unknown 03/17/2021 3:52 AM CDT 03/17/2021 3:56 AM CDT Shayne Schneider MD LAB - STRUCTURAL ENGINEERING TECHNICIAN RY ORDERABLES Performing Organization Address City/[facility]/ZIP Co de Phone Number [address] [address], [place] [phone] * (ABNORMAL) GGT (03/16/2021 2:31 AM CDT) Only the most recent of3 resultswithin the time period is included. GGT 1,381(H) 9 - 64 Units/L 03/16/2021 3:01 AM CDT [facility] Blood BLOOD SPECIMEN / Unknown Venipuncture / Unknown 03/16/2021 2:31 AM CDT 03/16/2021 2:35 AM CDT Shayne Schneider MD LAB - STRUCTURAL ENGINEERING TECHNICIAN RY ORDERABLES Performing Organization Address City/[facility]/ZIP Co de Phone Number [address] [address], [place] [phone] * BILIRUBIN BODY FLUID STL (03/14/2021 11:51 PM CDT) Only the most recent of2 resultswithin the time period is included. Bilirubin Fluid 2.9 Not Established For Fluids mg/dL 03/15/2021 12:46 AM CDT [facility] Comment:The analytical perfo rmance of this test has been independently validated by [facility]. A reference range has not been established. Comparison of this result with the concentration in blood, serum or plasma is recommended. Fluid PERITONEAL FLUID / Unknown Collection / Unknown 03/14/2021 11:51 PM CDT 03/15/2021 12:03 AM CDT Shayne Schneider MD LAB - BODY FL UID ORDERABLES [address] [address], [facility] [phone] * CALCIUM IONIZED WHOLE BLOOD (03/14/2021 11:49 PM CDT) Only the most recent of15 resultswithin the time period is included. Pathologist [facility] Calcium Ionized 1.19 mmol/L 03/15/2021 12:00 AM CDT [facility] pH 7.39 7.35 - 7.45 pH 03/15/2021 12:00 AM CDT [facility] Ionized Calcium pH Adjusted 1.19 1.19 - 1.34 mmol/L 03/15/2021 12:00 AM CDT [facility] Blood WHOLE BLOOD SPECIMEN / Unknown Venipuncture / Unknown 03/14/2021 11:49 PM CDT 03/14/2021 11:58 PM CDT Shayne Schneider MD LAB - STRUCTURAL ENGINEERING TECHNICIAN RY ORDERABLES [address] [address], [facility] [phone] * (ABNORMAL) RBC MORPHOLOGY (03/14/2021 12:34 AM CDT) Anisocytosis 1+(A) None 03/14/2021 2:11 AM CDT [facility] Macrocytosis Few(A) None 03/14/2021 2:11 AM CDT [facility] [place] [facility] Polychromasia Occasional (A) None 03/14/2021 2:11 AM CDT [facility] Ovalocytes Occasional (A) None 03/14/2021 2:11 AM CDT [facility] Blood BLOOD SPECIMEN / Unknown Venipuncture / Unknown 03/14/2021 12:34 AM CDT 03/14/2021 12:44 AM CDT Shayne Schneider MD LAB - HEMATOL OGY ORDERABLES [facility] [address] [place] [address], [facility] [phone] * CT ABDOMEN PELVIS W CONTRAST (03/12/2021 [...] 279(H) <150 mg/dL 03/12/2021 4:23 PM CDT [facility] Comment: ATP III Classification of Triglycerides: <150 mg/dL: Normal 150 - 199 mg/dL: Borderline High 200 - 400 mg/dL: High >500 mg/dL: Very High Blood BLOOD SPECIMEN / Unknown Venipuncture / Unknown 03/12/2021 1:20 PM CDT 03/12/2021 1:45 PM CDT Shayne Schneider MD LAB - STRUCTURAL ENGINEERING TECHNICIAN RY ORDERABLES [facility] [address] [place] [address], [place] [phone] * TRIGLYCERIDES BODY FLUID ([facility] ONLY) (03/12/2021 9:43 AM CDT) Triglycerides Fluid 131 Not Established For Fluids mg/dL 03/12/2021 10:35 AM CDT [facility] Comment:The analytical perfo rmance of this test has been independently validated by [facility]. A reference range has not been established. Comparison of this result with the concentration in blood, serum or plasma is recommended. Fluid PERITONEAL FLUID / Unknown Collection / Unknown 03/12/2021 9:43 AM CDT 03/12/2021 9:50 AM CDT Shayne Schneider MD LAB - BODY FL UID ORDERABLES Performing Organization Address [facility] Co de Phone Number [address] [address], [facility] [phone] * CREATININE BODY FLUID ([facility] ONLY) (03/12/2021 9:43 AM CDT) Only the most recent of2 resultswithin the time period is included. Creatinine Fluid 0.8 Not Established For Fluids mg/dL 03/13/2021 3:06 PM CDT [facility] Comment:The analytical perfo rmance of this test has been independently validated by [facility]. A reference range has not been established. Comparison of this result with the concentration in blood, serum or plasma is recommended. Fluid PERITONEAL FLUID / Unknown Collection / Unknown 03/12/2021 9:43 AM CDT 03/12/2021 9:50 AM CDT Shayne Schneider MD LAB - BODY FL UID ORDERABLES [address] [address], [place] [phone] * PREPARE (CROSSMATCH) RBC UNIT(S), 1 Units (03/12/2021 1:17 AM CDT) Only the most recent of8 resultswithin the time period is included. Unit Description N/A [facility] BLOOD BANK LAB Blood Bank BLOOD SPECIMEN / Unknown 03/08/2021 6:22 AM CDT Shayne Schneider MD LAB - BLOOD B ANK ORDERABLES [facility] [address] [place] [address], [facility] [phone] * TRANSFUSE RED BLOOD CELL LEUKOREDUCED UNIT(S) [...] ileus. Report dictated by Chris Nash M.D. (radiology asst). I, Dr. LUBA OSUNA have personally reviewed [...] ileus. Report dictated by Chris Nash M.D. (radiology asst). I, Dr. LUBA OSUNA have personally reviewed and interpreted this examination/study. This report was electronically signed by LUBA OSUNA on 03/11/2021 1:32 PM . Shayne Schneider MD DIAGNOSTIC IM AGING ORDERABLES * CULTURE MRSA (03/10/2021 8:58 PM CDT) Culture Negative for methicillin-resist ant Staphylococcus aureus (MRSA) LIVIER 03/12/2021 10:32 AM CDT [facility] MICROBIOLOGY Microbiology SPECIMEN FROM NASAL FOSSAE / Unknown Collection / Unknown 03/10/2021 8:58 PM CDT 03/10/2021 9:15 PM CDT Gagandeep Farmer MD LAB - MICROBIOLOGY O RDERABLES [facility] MICROBIOLOGY [address] [place] [address], [facility] [phone] * (ABNORMAL) URINALYSIS W/MICROSCOPIC NO CULTURE (03/10/2021 8:57 PM CDT) Only the most recent of2 resultswithin the time period is included. Color UA Carmen(A) Straw, Yellow 03/10/2021 9:23 PM [facility] Clarity UA Clear Clear 03/10/2021 9:23 PM [facility] Specific [place] UA 1.011 1.005 - 1.030 03/10/2021 9:23 PM [facility] pH UA 7.0 5.0 - 8.0 pH 03/10/2021 9:23 PM [facility] Protein UA Negative Negative 03/10/2021 9:23 PM [facility] Glucose UA Negative Negative 03/10/2021 9:23 PM [facility] Ketone UA Negative Negative 03/10/2021 9:23 PM [facility] Bilirubin UA Negative Negative 03/10/2021 9:23 PM [facility] Blood UA Negative Negative 03/10/2021 9:23 PM [facility] Nitrite UA Negative Negative 03/10/2021 9:23 PM [facility] Leukocyte Esterase Negative Negative 03/10/2021 9:23 PM [facility] Urobilinogen UA 4.0(A) Negative mg/dL 03/10/2021 9:23 PM [facility] RBC UA 0-2 None Seen, 0-2, 3-5 /HPF 03/10/2021 9:23 PM [facility] WBC UA 0-5 None Seen, 0-5 /HPF 03/10/2021 9:23 PM [facility] Squamous Epithelial Cells UA 0-2 None Seen, 0-2, 3-5 /HPF 03/10/2021 9:23 PM [facility] Urine URINE SPECIMEN OBTAINED VIA INDWELLING URINARY CATHETER / Unknown Collection / Unknown 03/10/2021 8:57 PM CDT 03/10/2021 9:15 PM CDT [facility] [place] - 03/10/2021 9:23 PM CDT Prosper Huynh PA-C LAB - URINALYSIS ORDERABLES [facility] [address] [place] [address], [facility] [phone] * (ABNORMAL) DIFFERENTIAL MANUAL (03/08/2021 5:04 PM CDT) WBC (corrected for NRBC) 10.7 10 3/uL 03/08/2021 5:53 PM CDT [facility] Total Cell Count 100 03/08/20 21 5:53 PM [facility] Neutrophils Absolute Manual 7.70(H) 1.60 - 7.00 10 3/uL 03/08/2021 5:53 PM CDT [facility] Comment:(BANDS+SEGS) x WBC = NEUT # (ANC) Lymphocyte Absolute Manual 0.75(L) 1.10 - 3.90 10 3/uL 03/08/2021 5:53 PM CDT [facility] Monocytes Absolute Manual 1.93(H) 0.26 - 1.07 10 3/uL 03/08/2021 5:53 PM CDT [facility] Basophil Absolute Manual 0.21(H) 0.00 - 0.08 10 3/uL 03/08/2021 5:53 PM CDT [facility] Band % Manual 3 0 - 10 % 03/[facility]2021 5:[facility] Neutrophil % Manual 69 35 - 70 % 03/08/2021 5:53 PM CDT [facility] Lymphocyte % Manual 7(L) 20 - 43 % 03/08/2021 5:53 PM CDT [facility] Monocytes % Manual 18(H) 5 - 13 % 03/08/2021 5:53 PM [facility] Basophils % Manual 2 0 - 2 % 03/08/2021 5:53 PM T [facility] Metamyelocyte % Manual 1(H) 0 % 03/08/2021 5:53 PM [facility] nRBC Manual 1(H) 0 /100 WBC 03/08/2021 5:53 PM [facility] Platelet Estimate Adequate Adequate 03/08/2021 5:53 PM [facility] Anisocytosis 1+(A) None 03/08/2021 5:53 PM CDT [facility] Polychromasia Occasional( A) None 03/08/2021 5:53 PM CDT [facility] Basophilic Stippling Occasional( A) None 03/08/2021 5:53 PM CDT [facility] Ovalocytes Occasional( A) None 03/08/2021 5:53 PM CDT [facility] Blood BLOOD SPECIMEN / Unknown Venipuncture / Unknown 03/08/2021 5:04 PM CDT 03/08/2021 5:16 PM CDT Audrey Meza MD LAB - HEMATOL OGY ORDERABLES [facility] [address] [place] [address], [facility] [phone] * FL ISMAEL SURGERY (03/08/2021 4:17 PM CDT) Narrative [facility] RADIOLOGY - 03/08/2021 4:19 PM CDT Fluoroscopy was used for this exam in the OR. Please see the Operative report. Madhav Elizabeth DO FLUOROSCOPY ORDERABL ES [facility] RADIOLOGY * (ABNORMAL) BLOOD GASES ART + COOX PANEL (03/08/2021 3:23 PM CDT) Only the most recent of35 resultswithin the time period is included. pH Arterial 7.31(L) 7.35 - 7.45 pH 03/08/2021 3:29 PM CDT [facility] pO2 Arterial 230(H) 80 - 100 mmHg 03/08/2021 3:29 PM CDT [facility] pCO2 Arterial 44 35 - 45 mmHg 3:29 PM CDT [facility] HCO3 Arterial 22 20 - 30 mmol/l 03/08/2021 3:29 PM CDT [facility] BE Arterial -3.9(L) -2.0 - 2.0 mmol/L 03/08/2021 3:29 PM CDT [facility] Oxyhemoglobin Arterial 96.8 % 03/08/2021 3:29 PM CDT [facility] Dexoyhemoglobin (HHB) % 0.0 % 03/08/2021 3:29 PM CDT [facility] Methemoglobin <0.8 0.0 - 2.0 % 03/08/2021 3:29 PM T [facility] Carboxyhemoglobin 2.6(H) 0.0 - 2.0 % 2020 3:29 PM T [facility] O2 Content Arterial 12.2 Interpret within clinical context mg/dL 03/08/2021 3:29 PM [facility] Hemoglobin by COOX 8.5(L) 12.0 - 17.6 g/dL 03/08/2021 3:29 PM T [facility] O2 Saturation Arterial 100 90 - 100 % 03/08/2021 3:29 PM T [facility] FI O2 Arterial 100.0 % 03/08/2021 3:29 PM T [facility] Blood, arterial ARTERIAL BLOOD SPECIMEN / Unknown Arterial Puncture / Unknown 03/08/2021 3:23 PM CDT 03/08/2021 3:27 PM CDT Narrative [facility] - 03/08/2021 3:29 PM CDT Carboxyhemoglobin Normal Concentration: Non-smokers: 0-2%; Smokers: 0-9%; Toxic: >20% Ollie Jasmine MD LAB - BLOOD GASES OR DERABLES [facility] [address] [place] [address], [facility] [phone] * ETT LINE PERFORMABLE (03/08/2021 2:40 PM CDT) Narrative Nam Gil Anes Asst - 03/08/2021 2:40 PM CDT Nam Gil Anes Asst 03/08/2021 2:42 PM Endotracheal Tube Placement: Patient Location: OR. Intubation Event Date/Time: 03/08/2021 1:56 PM Procedure: intubation (96788). Procedure Section: Sedation: under general anesthesia. Indications [...] osseous abnormality. Dictated by Maricruz Muniz MD (radiology asst). I, Dr. CORBIN JAY M.D. have personally [...] osseous abnormality. Dictated by Maricruz Muniz MD (radiology asst). Dr. CORBIN Dubon M.D. have personally reviewed and interpreted this examination/study. This report was electronically signed by CORBIN JAY M.D. on 03/05/2021 5:24 PM . Shayne Schneider MD DIAGNOSTIC IM AGING ORDERABLES * XR ANKLE RIGHT 3VW OR MORE (03/05/2021 3:55 PM CDT) Anatomical Region Laterality Modality Lower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
--- OUTSIDE RECORDS SUMMARY | 2024-11-28 03:06 | XMS_ITS | Clinical Summary ---
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 >=60 mL/min/1. 73 m2 Comment: [...] last reviewed 2021. Blood 09/14/2024 4:59 AM PIZZA DELIVERY DRIVER 09/14/2024 5:35 AM PIZZA DELIVERY DRIVER Chaz Nicole MD LAB BLOOD ORDERABL ES Final Result [facility] [address] [facility] Department [place] [address] * Differential, auto (09/14/2024 4:59 AM PIZZA DELIVERY DRIVER) Pathologist [facility] Neutrophil abs 4.0 1.5 - 6.5 K/cumm Imm gran abs 0.0 0.0 - 0.1 K/cumm [facility] Lymphocyte abs 1.9 0.8 - 3.3 K/cumm [facility] Monocyte abs 0.3 0.2 - 0.8 K/cumm [facility] Eosinophil abs 0.2 0.0 - 0.5 K/cumm [facility] Basophil abs 0.0 0.0 - 0.1 K/cumm [facility] Neutrophil pct 62.6 % [facility] Comment: Interpretive Data Percent cell count reference ranges are not reported, since discordance with absolute values may lead to misinterpretation of CBC data. Current Interpretive Data was last revised on 2018. Imm gran pct 0.6 % [facility] Comment: Interpretive Data Percent cell count reference ranges are not reported, since discordance with absolute values may lead to misinterpretation of CBC data. Current Interpretive Data was last revised on 2018. Lymphocyte pct 29.1 % [facility] Comment: Interpretive Data Percent cell count reference ranges are not reported, since discordance with absolute values may lead to misinterpretation of CBC data. Current Interpretive Data was last revised on 2018. Monocyte pct 4.7 % [facility] Comment: Interpretive Data Percent cell count reference ranges are not reported, since discordance with absolute values may lead to misinterpretation of CBC data. Current Interpretive Data was last revised on 2018. Eosinophil pct 2.5 % [facility] Comment: Interpretive Data Percent cell count reference ranges are not reported, since discordance with absolute values may lead to misinterpretation of CBC data. Current Interpretive Data was last revised on 2018. Basophil pct 0.5 % [facility] Comment: Interpretive Data Percent cell count reference ranges are not reported, since discordance with absolute values may lead to misinterpretation of CBC data. Current Interpretive Data was last revised on 2018. Blood 09/14/2024 4:59 AM PIZZA DELIVERY DRIVER 09/14/2024 5:35 AM PIZZA DELIVERY DRIVER Chaz Nicole MD LAB BLOOD ORDERABL ES Final Result [facility] [address] [facility] Department [place] [address] * (ABNORMAL) CBC with auto differential (09/14/2024 4:59 AM PIZZA DELIVERY DRIVER) Pathologist [facility] WBC 6.5 3.8 - 9.9 K/cumm Hgb 12.1(L) 13.0 - 17.5 g/dL [facility] Hct 34.4(L) 38.9 - 50.3 % [facility] Plt 121(L) 150 - 400 K/cumm [facility] MPV 10.0 9.1 - 12.3 fL [facility] RBC 3.77(L) 4.30 - 5.80 M/cumm [facility] MCV 91.2 81.3 - 96.4 fL [facility] MCH 32.1 27.1 - 33.3 pg [facility] MCHC 35.2 32.3 - 35.7 g/dL [facility] RDW CV 13.2 11.1 - 14.9 % [facility] RDW SD 43.0 35.7 - 48.1 fL [facility] NRBC abs 0.03(H) 0.00 - 0.01 K/cumm [facility] Blood 09/14/2024 4:59 AM PIZZA DELIVERY DRIVER 09/14/2024 5:35 AM PIZZA DELIVERY DRIVER Chaz Nicole MD LAB BLOOD ORDERABL ES Final Result Performing Organization Address City/[facility] Co de Phone Number [address] [place] [employer] [place] [address] * (ABNORMAL) Phosphorus (09/14/2024 4:59 AM PIZZA DELIVERY DRIVER) Phosphorus, pl 2.1(L) 2.3 - 4.5 mg/dL Blood 09/14/2024 4:59 AM PIZZA DELIVERY DRIVER 09/14/2024 5:35 AM PIZZA DELIVERY DRIVER Chaz Nicole MD LAB BLOOD ORDERABL ES Final Result Performing Organization Address [facility] Co de Phone Number [address] [place] [employer] [place] [address] * Magnesium (09/14/2024 4:59 AM PIZZA DELIVERY DRIVER) Magnesium 1.6 1.4 - 2.5 mg/dL Blood 09/14/2024 4:59 AM PIZZA DELIVERY DRIVER 09/14/2024 5:35 AM PIZZA DELIVERY DRIVER Chaz Nicole MD LAB BLOOD ORDERABL ES Final Result Performing Organization Address City/[facility] Co de Phone Number [address] [place] [employer] [place] [address] * (ABNORMAL) Comprehensive metabolic panel (09/14/2024 4:59 AM PIZZA DELIVERY DRIVER) Sodium 135 135 - 145 mmol/L Potassium, pl 3.5 3.3 - 4.9 mmol/L [facility] Comment:Hemolyzed; Potassium value may be falsely elevated by as much as 1.0 mmol/L. Suggest redraw and reanalysis. Chloride 103 97 - 110 mmol/L [facility] CO2 22 22 - 32 mmol/L [facility] Anion gap 10 2 - 15 mmol/L [facility] BUN 5(L) 6 - 25 mg/dL [facility] Creatinine 0.94 0.80 - 1.30 mg/dL [facility] Glucose 123 70 - 199 mg/dL [facility] Comment: Interpretive Data Fasting glucose [...] 2022. Calcium 9.1 8.5 - 10.3 mg/dL [facility] Bilirubin, total 0.3 0.1 - 1.2 mg/dL [facility] Protein, pl 6.3(L) 6.5 - 8.5 g/dL [facility] Albumin 3.8 3.5 - 5.0 g/dL [facility] Alk phos 69 40 - 130 Units/L [facility] ALT 64(H) 7 - 55 Units/L [facility] AST 100(H) 10 - 50 Units/L [facility] Comment:Hemolyzed; result ma y be falsely elevated Blood 09/14/2024 4:59 AM PIZZA DELIVERY DRIVER 09/14/2024 5:35 AM PIZZA DELIVERY DRIVER Chaz Nicole MD LAB BLOOD ORDERABL ES Final Result [facility] [address] [facility] Department [place] [address] * eGFR (09/13/2024 3:42 AM PIZZA DELIVERY DRIVER) Pathologist [facility] eGFR >90 >=60 mL/min/1. 73 m2 Comment: [...] last reviewed 2021. Blood 09/13/2024 3:42 AM PIZZA DELIVERY DRIVER 09/13/2024 3:54 AM PIZZA DELIVERY DRIVER Chaz Nicole MD LAB BLOOD ORDERABL ES Final Result [facility] [address] [facility] Department [place] [address] * Differential, auto (09/13/2024 3:42 AM PIZZA DELIVERY DRIVER) Pathologist [facility] Neutrophil abs 3.0 1.5 - 6.5 K/cumm Imm gran abs 0.0 0.0 - 0.1 K/cumm [facility] Lymphocyte abs 1.8 0.8 - 3.3 K/cumm [facility] Monocyte abs 0.3 0.2 - 0.8 K/cumm [facility] Eosinophil abs 0.1 0.0 - 0.5 K/cumm [facility] Basophil abs 0.0 0.0 - 0.1 K/cumm [facility] Neutrophil pct 57.4 % [facility] Comment: Interpretive Data Percent cell count reference ranges are not reported, since discordance with absolute values may lead to misinterpretation of CBC data. Current Interpretive Data was last revised on 2018. Imm gran pct 0.2 % [facility] Comment: Interpretive Data Percent cell count reference ranges are not reported, since discordance with absolute values may lead to misinterpretation of CBC data. Current Interpretive Data was last revised on 2018. Lymphocyte pct 34.4 % [facility] Comment: Interpretive Data Percent cell count reference ranges are not reported, since discordance with absolute values may lead to misinterpretation of CBC data. Current Interpretive Data was last revised on 2018. Monocyte pct 5.6 % [facility] Comment: Interpretive Data Percent cell count reference ranges are not reported, since discordance with absolute values may lead to misinterpretation of CBC data. Current Interpretive Data was last revised on 2018. Eosinophil pct 1.8 % [facility] Comment: Interpretive Data Percent cell count reference ranges are not reported, since discordance with absolute values may lead to misinterpretation of CBC data. Current Interpretive Data was last revised on 2018. Basophil pct 0.6 % [facility] Comment: Interpretive Data Percent cell count reference ranges are not reported, since discordance with absolute values may lead to misinterpretation of CBC data. Current Interpretive Data was last revised on 2018. Blood 09/13/2024 3:42 AM PIZZA DELIVERY DRIVER 09/13/2024 3:55 AM PIZZA DELIVERY DRIVER Chaz Nicole MD LAB BLOOD ORDERABL ES Final Result [facility] [address] [facility] Department [place] [address] * (ABNORMAL) CBC with auto differential (09/13/2024 3:42 AM PIZZA DELIVERY DRIVER) WBC 5.1 3.8 - 9.9 K/cumm Hgb 12.6(L) 13.0 - 17.5 g/dL [facility] Hct 34.8(L) 38.9 - 50.3 % [facility] Plt 112(L) 150 - 400 K/cumm [facility] MPV 10.1 9.1 - 12.3 fL [facility] RBC 3.84(L) 4.30 - 5.80 M/cumm [facility] MCV 90.6 81.3 - 96.4 fL [facility] MCH 32.8 27.1 - 33.3 pg [facility] MCHC 36.2(H) 32.3 - 35.7 g/dL [facility] RDW CV 12.9 11.1 - 14.9 % [facility] RDW SD 42.3 35.7 - 48.1 fL [facility] NRBC abs 0.00 0.00 - 0.01 K/cumm [facility] Blood 09/13/2024 3:42 AM PIZZA DELIVERY DRIVER 09/13/2024 3:55 AM PIZZA DELIVERY DRIVER Chaz Nicole MD LAB BLOOD ORDERABL ES Final Result Performing Organization Address [facility] de Phone Number [address] [place] [address] * Phosphorus (09/13/2024 3:42 AM PIZZA DELIVERY DRIVER) Phosphorus, pl 2.3 2.3 - 4.5 mg/dL Blood 09/13/2024 3:42 AM PIZZA DELIVERY DRIVER 09/13/2024 3:54 AM PIZZA DELIVERY DRIVER Chaz Nicoel MD LAB BLOOD ORDERABL ES Final Result Performing Organization Address [facility] Co de Phone Number [address] [place] [employer] [place] [address] * Magnesium (09/13/2024 3:42 AM PIZZA DELIVERY DRIVER) Magnesium 2.0 1.4 - 2.5 mg/dL Blood 09/13/2024 3:42 AM PIZZA DELIVERY DRIVER 09/13/2024 3:54 AM PIZZA DELIVERY DRIVER Chaz Nicole MD LAB BLOOD ORDERABL ES Final Result Performing Organization Address City/[facility] de Phone Number [facility] [address] Department [place] [address] * (ABNORMAL) Comprehensive metabolic panel (09/13/2024 3:42 AM PIZZA DELIVERY DRIVER) Sodium 138 135 - 145 mmol/L Potassium, pl 3.6 3.3 - 4.9 mmol/L [facility] Chloride 104 97 - 110 mmol/L [facility] CO2 24 22 - 32 mmol/L [facility] Anion gap 10 2 - 15 mmol/L [facility] BUN 7 6 - 25 mg/dL [facility] Creatinine 0.82 0.80 - 1.30 mg/dL [facility] Glucose 106 70 - 199 mg/dL [facility] Comment: Interpretive Data Fasting glucose [...] 2022. Calcium 9.4 8.5 - 10.3 mg/dL [facility] Bilirubin, total 0.5 0.1 - 1.2 mg/dL [facility] Protein, pl 6.7 6.5 - 8.5 g/dL [facility] Albumin 3.9 3.5 - 5.0 g/dL [facility] Alk phos 69 40 - 130 Units/L [facility] ALT 43 7 - 55 Units/L [facility] AST 69(H) 10 - 50 Units/L [facility] Blood 09/13/2024 3:42 AM PIZZA DELIVERY DRIVER 09/13/2024 3:54 AM PIZZA DELIVERY DRIVER Chaz Nicole MD LAB BLOOD ORDERABL ES Final Result [facility] [address] [place] [address] Department [place] [address] * Troponin T high-sensitivity 6-hour (09/12/2024 3:52 AM PIZZA DELIVERY DRIVER) Trop T hs 6 <=22 ng/L Comment: Interpretive Data For further hscTnT resources including the diagnostic algorithm and an aid in interpretation, copy and paste this link: [email or web address]/show/[email or web address] Current Interpretive Data last revised 2020. Trop T hs delta -1 ng/L [facility] Trop T hs interp Insignificant [facility] Blood 09/12/2024 3:52 AM PIZZA DELIVERY DRIVER 09/12/2024 4:50 AM PIZZA DELIVERY DRIVER Truong Maloney MD LAB BLOOD ORDERABLES Final Result Performing Organization Address [facility] Co de Phone Number [address] [employer] [place] [address] * Troponin T high-sensitivity 4-hour (09/12/2024 2:22 AM PIZZA DELIVERY DRIVER) Pathologist [facility] Trop T hs <6 <=22 ng/L Comment: Interpretive Data For further hscTnT resources including the diagnostic algorithm and an aid in interpretation, copy and paste this link: [email or web address]/show/[email or web address] Current Interpretive Data last revised 2020. Trop T hs delta -1 ng/L [facility] Trop T hs interp Insignificant [facility] Blood 09/12/2024 2:22 AM PIZZA DELIVERY DRIVER 09/12/2024 2:32 AM PIZZA DELIVERY DRIVER Truong Maloney MD LAB BLOOD ORDERABLES Final Result Performing Organization Address City/[facility]/ZIP Co de Phone Number [address] [place] [employer] [place] [address] * eGFR (09/12/2024 2:22 AM PIZZA DELIVERY DRIVER) Pathologist [facility] eGFR >90 >=60 mL/min/1. 73 m2 Comment: [...] last reviewed 2021. Blood 09/12/2024 2:22 AM PIZZA DELIVERY DRIVER 09/12/2024 2:32 AM PIZZA DELIVERY DRIVER Truong Maloney MD LAB BLOOD ORDERABLES Final Result [facility] [address] [facility] Department of Laboratories [place], [place] [id number] * Differential, auto (09/12/2024 2:22 AM PIZZA DELIVERY DRIVER) Pathologist [facility] Neutrophil abs 4.0 1.5 - 6.5 K/cumm Imm gran abs 0.0 0.0 - 0.1 K/cumm [facility] Lymphocyte abs 1.6 0.8 - 3.3 K/cumm [facility] Monocyte abs 0.4 0.2 - 0.8 K/cumm [facility] Eosinophil abs 0.0 0.0 - 0.5 K/cumm [facility] Basophil abs 0.0 0.0 - 0.1 K/cumm [facility] Neutrophil pct 65.5 % [facility] Comment: Interpretive Data Percent cell count reference ranges are not reported, since discordance with absolute values may lead to misinterpretation of CBC data. Current Interpretive Data was last revised on 2018. Imm gran pct 0.3 % [facility] Comment: Interpretive Data Percent cell count reference ranges are not reported, since discordance with absolute values may lead to misinterpretation of CBC data. Current Interpretive Data was last revised on 2018. Lymphocyte pct 26.5 % [facility] Comment: Interpretive Data Percent cell count reference ranges are not reported, since discordance with absolute values may lead to misinterpretation of CBC data. Current Interpretive Data was last revised on 2018. Monocyte pct 6.7 % [facility] Comment: Interpretive Data Percent cell count reference ranges are not reported, since discordance with absolute values may lead to misinterpretation of CBC data. Current Interpretive Data was last revised on 2018. Eosinophil pct 0.3 % [facility] Comment: Interpretive Data Percent cell count reference ranges are not reported, since discordance with absolute values may lead to misinterpretation of CBC data. Current Interpretive Data was last revised on 2018. Basophil pct 0.7 % [facility] Comment: Interpretive Data Percent cell count reference ranges are not reported, since discordance with absolute values may lead to misinterpretation of CBC data. Current Interpretive Data was last revised on 2018. Blood 09/12/2024 2:22 AM PIZZA DELIVERY DRIVER 09/12/2024 2:32 AM PIZZA DELIVERY DRIVER Truong Maloney MD LAB BLOOD ORDERABLES Final Result [facility] [address] [facility] Department [place] [address] * (ABNORMAL) CBC with auto differential (09/12/2024 2:22 AM PIZZA DELIVERY DRIVER) WBC 6.2 3.8 - 9.9 K/cumm Hgb 12.3(L) 13.0 - 17.5 g/dL [facility] Hct 34.2(L) 38.9 - 50.3 % [facility] Plt 118(L) 150 - 400 K/cumm [facility] MPV 10.3 9.1 - 12.3 fL [facility] RBC 3.85(L) 4.30 - 5.80 M/cumm [facility] MCV 88.8 81.3 - 96.4 fL [facility] MCH 31.9 27.1 - 33.3 pg [facility] MCHC 36.0(H) 32.3 - 35.7 g/dL [facility] RDW CV 12.8 11.1 - 14.9 % [facility] RDW SD 41.4 35.7 - 48.1 fL [facility] NRBC abs 0.02(H) 0.00 - 0.01 K/cumm [facility] Blood 09/12/2024 2:22 AM PIZZA DELIVERY DRIVER 09/12/2024 2:32 AM PIZZA DELIVERY DRIVER Truong Maloney MD LAB BLOOD ORDERABLES Final Result [facility] [address] [facility] Department [place] [address] * (ABNORMAL) Comprehensive metabolic panel (09/12/2024 2:22 AM PIZZA DELIVERY DRIVER) Sodium 139 135 - 145 mmol/L Potassium, pl 3.8 3.3 - 4.9 mmol/L [facility] Chloride 106 97 - 110 mmol/L [facility] CO2 23 22 - 32 mmol/L [facility] Anion gap 10 2 - 15 mmol/L [facility] BUN 5(L) 6 - 25 mg/dL [facility] Creatinine 0.80 0.80 - 1.30 mg/dL [facility] Glucose 82 70 - 199 mg/dL [facility] Comment: Interpretive Data Fasting glucose [...] 2022. Calcium 8.8 8.5 - 10.3 mg/dL [facility] Bilirubin, total 1.0 0.1 - 1.2 mg/dL [facility] Protein, pl 6.2(L) 6.5 - 8.5 g/dL [facility] Albumin 3.8 3.5 - 5.0 g/dL [facility] Alk phos 71 40 - 130 Units/L [facility] ALT 46 7 - 55 Units/L [facility] AST 82(H) 10 - 50 Units/L [facility] Blood 09/12/2024 2:22 AM PIZZA DELIVERY DRIVER 09/12/2024 2:32 AM PIZZA DELIVERY DRIVER [facility] Che Maloney MD LAB BLOOD ORDERABLES Final Result Performing Organization Address [facility] de Phone Number [facility] [address] [place] [employer] [place] [address] * Troponin T high-sensitivity 2-hour (09/11/2024 11:42 PM PIZZA DELIVERY DRIVER) Trop T hs 7 <=22 ng/L Comment: Interpretive Data For further hscTnT resources including the diagnostic algorithm and an aid in interpretation, copy and paste this link: https://[email or web address]/show/hsTrop Current Interpretive Data last revised 2020. Trop T hs delta 0 ng/L [facility] Trop T hs interp Insignificant [facility] Blood 09/11/2024 11:4 2 PM PIZZA DELIVERY DRIVER 09/12/2024 12:25 AM PIZZA DELIVERY DRIVER Truong Maloney MD LAB BLOOD ORDERABLES Final Result Performing Organization Address [facility] de Phone Number [address] [employer] [place] [address] * Troponin T high-sensitivity series (baseline, 2hr, 4hr, 6hr) (09/11/2024 9:31 PM PIZZA DELIVERY DRIVER) Trop T hs 7 <=22 ng/L Comment: Interpretive Data For further hscTnT resources including the diagnostic algorithm and an aid in interpretation, copy and paste this link: [email or web address]://[email or web address]/show/hsTrop Current Interpretive Data last revised 2020. Blood 09/11/2024 9:31 PM PIZZA DELIVERY DRIVER 09/11/2024 9:34 PM PIZZA DELIVERY DRIVER Truong Maloney MD LAB BLOOD ORDERABLES Final Result [facility] [address] [facility] Department [place] [address] * ECG 12 lead (09/11/2024 9:19 PM PIZZA DELIVERY DRIVER) Ventricular Rate EKG/Min 98 BPM [facility] Atrial Rate 98 BPM [facility] NH-Interval (MSEC) 136 ms [facility] QRS-Interval (MSEC) 84 ms [facility] QT-Interval (MSEC) 372 ms [facility] QTc 474 ms [facility] P [place] 71 degrees [facility] R [place] 55 degrees [facility] T [place] 29 degrees [facility] Diagnosis Normal sinus rhythm Normal ECG When compared with ECG of 10-SEP-2024 12:51, No significant change was found Confirmed by JAMIR WOLF M.D. ([id number]) on 09/15/2024 9:53:32 AM [facility] 09/11/2024 9:19 PM PIZZA DELIVERY DRIVER 09/15/2024 9:53 AM PIZZA DELIVERY DRIVER Result [facility] Truong Maloney MD ECG ORDERABLES Alice l Result Performing Organization Address [facility] Co de Phone Number [facility] * (ABNORMAL) Urinalysis reflex to microscopic and culture Urine (09/11/2024 1:10 PM PIZZA DELIVERY DRIVER) Color, ur Yellow Yellow Clarity, ur Clear Clear [facility] Specific gravity, ur 1.005 1.003 - 1.030 [facility] pH, urine 6.5 [facility] Comment: Interpretive Data U rine pH is affected by diet, medications, systemic acid-base disturbances, and renal tubular function. pH may affect urinary stone formation. For example, urine pH below 6.0 may help reduce the tendency for calcium phosphate stones and pH greater than 6.0 may reduce the tendency for uric acid stone formation. Source: [facility] [employer] Current Interpretive Data was last revised on 2017 Protein, ur ql 1+(A) Negative [facility] Glucose, ur ql Negative Negative [facility] Ketones, ur Negative Negative [facility] Bilirubin, ur Negative Negative [facility] Blood, ur Negative Negative [facility] Urobilinogen, ur 2.0(A) <2.0 mg/dL [facility] Nitrite, ur Negative Negative [facility] Leukocyte esterase, ur Negative Negative [facility] UA reflex comment Reflex to microscopic UA will be performed. [facility] Urine 09/11/2024 1:10 PM PIZZA DELIVERY DRIVER 09/11/2024 1:13 PM PIZZA DELIVERY DRIVER [facility] MICROBIOLOGY - GENERAL ORDERABLES Final Result [facility] [address] [facility] Department [place] [address] * (ABNORMAL) Drugs of Abuse Screen, Urine without Confirmation (09/11/2024 1:10 PM PIZZA DELIVERY DRIVER) Amphetamine, ur Not Detected CutOff 500ng/mL Comment: Interpretive Data - Amphetamines: Samples containing greater than 500 ng/mL d-methamphetamine or other cross-reacting amphetamine compounds are reported as positive. Amphetamine immunoassays are subject to significant false positive rates due to cross-reactivity of non-amphetamine drugs. Confirmatory testing required for definitive results. Current Interpretive Data was last reviewed 2023. Barbiturates, ur Not Detected CutOff 200ng/mL [facility] Comment: Interpretive Data - Barbiturates: Samples containing greater than 200 ng/mL secobarbital or other cross-reacting barbiturate compounds are reported as positive. False positive and false negative results are possible. Confirmatory testing required for definitive results. Current Interpretive Data was last reviewed 2023. Benzodiazepines, ur Screen Positive, presumptive (A) CutOff 100ng/mL [facility] Comment: Interpretive Data - Benzodiazepines: Samples containing greater than 100 ng/mL nordiazepam or other cross-reacting compounds are reported as positive. False positive and false negative results are possible. Confirmatory testing required for definitive results. Current Interpretive Data was last reviewed 2023. Cannabinoids, ur Screen Positive, presumptive (A) CutOff 50 ng/mL [facility] Comment: Interpretive Data - Cannabinoids: Samples containing greater than 50 ng/mL delta-9 THC -COOH or other cross- reacting compounds are reported as positive. False positive and false negative results are possible. Confirmatory testing required for definitive results. Current Interpretive Data was last reviewed 2023. Cocaine, ur Not Detected CutOff 150ng/mL [facility] Comment: Interpretive Data - Cocaine: Samples containing greater than 150 ng/mL benzoylecgonine or other cross- reacting compounds are reported as positive. False positive and false negative results are possible. Confirmatory testing required for definitive results. Current Interpretive Data was last reviewed 2023. Fentanyl, Ur Not Detected CutOff 5 ng/mL [facility] Comment: Interpretive Data - Fentanyl: Samples containing greater than 5 ng/mL norfentanyl, fentanyl, or other cross-reacting fentanyl compounds are reported as positive. False positive and false negative results are possible. Confirmatory testing required for definitive results. Current Interpretive Data was last reviewed 2023. Methadone, ur Not Detected CutOff 300ng/mL [facility] Comment: Interpretive Data - Methadone: Samples containing greater than 300 ng/mL d,l-methadone or other cross-reacting compounds are reported as positive. False positive and false negative results are possible. Confirmatory testing required for definitive results. Current Interpretive Data was last reviewed 2023. Opiates, ur Not Detected CutOff 300ng/mL [facility] Comment: Interpretive Data - Opiates: Samples containing greater than 300 ng/mL morphine or other cross-reacting compounds are reported as positive. False positive and false negative results are possible. Confirmatory testing required for definitive results. Current Interpretive Data was last reviewed 2023. Oxycodone, ur Not Detected CutOff 100ng/mL [facility] Comment: Interpretive Data - Oxycodone: Samples containing greater than 100 ng/mL oxycodone or other cross-reacting compounds are reported as positive. False positive and false negative results are possible. Confirmatory testing required for definitive results. Current Interpretive Data was last reviewed 2023. Phencyclidine, ur Not Detected CutOff 25 ng/mL [facility] Comment: Interpretive Data - Phencyclidine: Samples containing greater than 25 ng/mL phencyclidine or other cross-reacting compounds are reported as positive. False positive and false negative results are possible. Confirmatory testing required for definitive results. Current Interpretive Data was last reviewed 2023. Urine Creatinine 45 mg/dL [facility] Comment: Interpretive Data Urine Creatinine: < 10 mg/dL is extremely dilute = or > 10 but < 20 mg/dL is dilute = or > 20 mg/dL is normal Current Interpretive Data was last revised on 2017. Urine 09/11/2024 1:10 PM PIZZA DELIVERY DRIVER 09/11/2024 1:13 PM PIZZA DELIVERY DRIVER Narrative [facility] - 09/11/2024 1:40 PM PIZZA DELIVERY DRIVER Drug of Abuse screening is performed by immunoassay for medical purposes only. This is not to be used for Pain Management purposes. [email or web address] LAB URINE ORDERABL ES Final Result Performing Organization Address [facility] de Phone Number [address] [place] [address] * (ABNORMAL) Urinalysis, microscopic only (09/11/2024 1:10 PM PIZZA DELIVERY DRIVER) WBC, ur 0-5 0 - 5 /HPF RBC, ur 0-2 0 - 2 /HPF [facility] Epithelial cells, squamous, ur 1-5 0 - 5 /HPF [facility] Mucous, ur Present(A) [facility] Amorphous crystals, ur Trace(A) [facility] Culture Reflex Comment Reflex conditions for urine culture (WBC >10) not met. [facility] Urine 09/11/2024 1:10 PM PIZZA DELIVERY DRIVER 09/11/2024 1:13 PM PIZZA DELIVERY DRIVER [email or web address] LAB URINE ORDERABL ES Final Result Performing Organization Address [facility] Co de Phone Number [address] [place], [place] [id number] * eGFR (09/11/2024 1:03 PM PIZZA DELIVERY DRIVER) eGFR >90 >=60 mL/min/1. 73 m2 Comment: [...] last reviewed 2021. Blood 09/11/2024 1:03 PM PIZZA DELIVERY DRIVER 09/11/2024 1:05 PM PIZZA DELIVERY DRIVER Ginger PELLETIER LAB BLOOD ORDERABL ES Final Result [facility] [address] [facility] Department [place] [address] * Differential, auto (09/11/2024 1:03 PM PIZZA DELIVERY DRIVER) Pathologist [facility] Neutrophil abs 3.6 1.5 - 6.5 K/cumm Imm gran abs 0.0 0.0 - 0.1 K/cumm [facility] Lymphocyte abs 1.3 0.8 - 3.3 K/cumm [facility] Monocyte abs 0.3 0.2 - 0.8 K/cumm [facility] Eosinophil abs 0.0 0.0 - 0.5 K/cumm [facility] Basophil abs 0.1 0.0 - 0.1 K/cumm [facility] Neutrophil pct 67.8 % [facility] Comment: Interpretive Data Percent cell count reference ranges are not reported, since discordance with absolute values may lead to misinterpretation of CBC data. Current Interpretive Data was last revised on 2018. Imm gran pct 0.2 % [facility] Comment: Interpretive Data Percent cell count reference ranges are not reported, since discordance with absolute values may lead to misinterpretation of CBC data. Current Interpretive Data was last revised on 2018. Lymphocyte pct 24.3 % [facility] Comment: Interpretive Data Percent cell count reference ranges are not reported, since discordance with absolute values may lead to misinterpretation of CBC data. Current Interpretive Data was last revised on 2018. Monocyte pct 6.5 % [facility] Comment: Interpretive Data Percent cell count reference ranges are not reported, since discordance with absolute values may lead to misinterpretation of CBC data. Current Interpretive Data was last revised on 2018. Eosinophil pct 0.2 % [facility] Comment: Interpretive Data Percent cell count reference ranges are not reported, since discordance with absolute values may lead to misinterpretation of CBC data. Current Interpretive Data was last revised on 2018. Basophil pct 1.0 % [facility] Comment: Interpretive Data Percent cell count reference ranges are not reported, since discordance with absolute values may lead to misinterpretation of CBC data. Current Interpretive Data was last revised on 2018. Blood 09/11/2024 1:03 PM PIZZA DELIVERY DRIVER 09/11/2024 1:05 PM PIZZA DELIVERY DRIVER Ginger PELLETIER LAB BLOOD ORDERABL ES Final Result [facility] [address] [facility] Department [place] [address] * (ABNORMAL) CBC with auto differential (09/11/2024 1:03 PM PIZZA DELIVERY DRIVER) WBC 5.2 3.8 - 9.9 K/cumm Hgb 14.3 13.0 - 17.5 g/dL [facility] Hct 39.6 38.9 - 50.3 % [facility] Plt 146(L) 150 - 400 K/cumm [facility] MPV 9.8 9.1 - 12.3 fL [facility] RBC 4.55 4.30 - 5.80 M/cumm [facility] MCV 87.0 81.3 - 96.4 fL [facility] MCH 31.4 27.1 - 33.3 pg [facility] MCHC 36.1(H) 32.3 - 35.7 g/dL [facility] RDW CV 12.4 11.1 - 14.9 % [facility] RDW SD 39.7 35.7 - 48.1 fL [facility] NRBC abs 0.00 0.00 - 0.01 K/cumm [facility] Blood 09/11/2024 1:03 PM PIZZA DELIVERY DRIVER 09/11/2024 1:05 PM PIZZA DELIVERY DRIVER Adebowale Tolulade Adesida PA LAB BLOOD ORDERABL ES Final Result Performing Organization Address City/[facility] Co de Phone Number [address] [address] * Phosphorus (09/11/2024 1:03 PM PIZZA DELIVERY DRIVER) [facility] Phosphorus, pl 2.4 2.3 - 4.5 mg/dL Blood 09/11/2024 1:03 PM PIZZA DELIVERY DRIVER 09/11/2024 1:05 PM PIZZA DELIVERY DRIVER Adebowale Tolulade Adesida PA LAB BLOOD ORDERABL ES Final Result Performing Organization Address [facility] Co de Phone Number [address] [place] [employer] [address] * Magnesium (09/11/2024 1:03 PM PIZZA DELIVERY DRIVER) [facility] Magnesium 1.6 1.4 - 2.5 mg/dL Blood 09/11/2024 1:03 PM PIZZA DELIVERY DRIVER 09/11/2024 1:05 PM PIZZA DELIVERY DRIVER [facility] Tolulade Adesida PA LAB BLOOD ORDERABL ES Final Result Performing Organization Address [facility] Co de Phone Number [address] [place] [employer] [address] * (ABNORMAL) Ethanol (09/11/2024 1:03 PM PIZZA DELIVERY DRIVER) [facility] Ethanol 84(H) <=10 mg/dL Comment: Interpretive Data Legal limit of intoxication > or = 80 mg/dL Levels > or = 400 mg/dL are potentially TOXIC. Current interpretive data was last revised on 2018. Blood 09/11/2024 1:03 PM PIZZA DELIVERY DRIVER 09/11/2024 1:05 PM PIZZA DELIVERY DRIVER Ginger PELLETIER LAB BLOOD ORDERABL ES Final Result [facility] [address] [facility] Department [place] [address] * (ABNORMAL) Comprehensive metabolic panel (09/11/2024 1:03 PM PIZZA DELIVERY DRIVER) Sodium 136 135 - 145 mmol/L Potassium, pl 3.0(L) 3.3 - 4.9 mmol/L [facility] Chloride 95(L) 97 - 110 mmol/L [facility] CO2 20(L) 22 - 32 mmol/L [facility] Anion gap 21(H) 2 - 15 mmol/L [facility] BUN 5(L) 6 - 25 mg/dL [facility] Creatinine 0.79(L) 0.80 - 1.30 mg/dL [facility] Glucose 113 70 - 199 mg/dL [facility] Comment: Interpretive Data Fasting glucose [...] 2022. Calcium 10.0 8.5 - 10.3 mg/dL [facility] Bilirubin, total 1.1 0.1 - 1.2 mg/dL [facility] Protein, pl 8.2 6.5 - 8.5 g/dL [facility] Albumin 4.7 3.5 - 5.0 g/dL [facility] Alk phos 94 40 - 130 Units/L [facility] ALT 72(H) 7 - 55 Units/L [facility] AST 158(H) 10 - 50 Units/L [facility] Blood 09/11/2024 1:03 PM PIZZA DELIVERY DRIVER 09/11/2024 1:05 PM PIZZA DELIVERY DRIVER Ginger PELLETIER LAB BLOOD ORDERABL ES Final Result Performing Organization Address City/[facility]/ZIP Co de Phone Number [facility] [address] [facility] Department [place] [address] * ECG 12 lead (09/10/2024 12:51 PM PIZZA DELIVERY DRIVER) Ventricular Rate EKG/Min 119 BPM [facility] Atrial Rate 119 BPM [facility] NH-Interval (MSEC) 134 ms [facility] QRS-Interval (MSEC) 84 ms [facility] QT-Interval (MSEC) 306 ms [facility] QTc 430 ms [facility] P [place] 64 degrees [facility] R [place] 31 degrees [facility] T [place] 33 degrees [facility] Diagnosis Sinus tachycardia Possible Left atrial enlargement When compared with ECG of 05-OCT-2023 08:44, No significant change was found Confirmed by SULTAN GALLAGHER M.D. ([id number]) on 09/10/2024 4:41:17 PM [facility] 09/10/2024 12:5 1 PM PIZZA DELIVERY DRIVER 09/10/2024 4:41 PM PIZZA DELIVERY DRIVER us Jose Carlos Kenyon DO ECG ORDERABLES Final Resul t Performing Organization Address City/[facility]/ZIP Co de Phone Number [facility] * eGFR (09/10/2024 12:41 PM PIZZA DELIVERY DRIVER) eGFR >90 >=60 mL/min/1. 73 m2 Comment: [...] was last reviewed 2021. Testing performed by: [address] [address] Blood 09/10/2024 12:4 1 PM PIZZA DELIVERY DRIVER 09/10/2024 12:50 PM PIZZA DELIVERY DRIVER us Jose Carlos Kenyon DO LAB BLOOD ORDERABLES Final Result [facility] [address] [facility] Department [place] [address] * Differential, auto (09/10/2024 12:41 PM PIZZA DELIVERY DRIVER) Neutrophil abs 4.4 1.5 - 6.5 K/cumm Comment:Testing performed by : [address] [address] Imm gran abs 0.0 0.0 - 0.1 K/cumm [facility] Comment:Testing performed by : [address] [address] Lymphocyte abs 2.2 0.8 - 3.3 K/cumm [facility] Comment:Testing performed by : [address] [address] Monocyte abs 0.3 0.2 - 0.8 K/cumm [facility] Comment:Testing performed by : [address] [address] Eosinophil abs 0.0 0.0 - 0.5 K/cumm [facility] Comment:Testing performed by : [address] [address] Basophil abs 0.1 0.0 - 0.1 K/cumm [facility] Comment:Testing performed by : [address] [address] Neutrophil pct 62.8 % [facility] Comment: Interpretive Data Percent cell count reference ranges are not reported, since discordance with absolute values may lead to misinterpretation of CBC data. Current Interpretive Data was last revised on 2018. Testing performed by: [address] [address] Imm gran pct 0.1 % [facility] Comment: Interpretive Data Percent cell count reference ranges are not reported, since discordance with absolute values may lead to misinterpretation of CBC data. Current Interpretive Data was last revised on 2018. Testing performed by: [address] [address] Lymphocyte pct 31.6 % [facility] Comment: Interpretive Data Percent cell count reference ranges are not reported, since discordance with absolute values may lead to misinterpretation of CBC data. Current Interpretive Data was last revised on 2018. Testing performed by: [address] [address] Monocyte pct 4.5 % [facility] Comment: Interpretive Data Percent cell count reference ranges are not reported, since discordance with absolute values may lead to misinterpretation of CBC data. Current Interpretive Data was last revised on 2018. Testing performed by: [address] [address] Eosinophil pct 0.0 % [facility] Comment: Interpretive Data Percent cell count reference ranges are not reported, since discordance with absolute values may lead to misinterpretation of CBC data. Current Interpretive Data was last revised on 2018. Testing performed by: [address] [address] Basophil pct 1.0 % [facility] Comment: Interpretive Data Percent cell count reference ranges are not reported, since discordance with absolute values may lead to misinterpretation of CBC data. Current Interpretive Data was last revised on 2018. Testing performed by: [address] [address] Blood 09/10/2024 12:4 1 PM PIZZA DELIVERY DRIVER 09/10/2024 12:50 PM PIZZA DELIVERY DRIVER Jose Carlos Larose Siddharthaolya LAB BLOOD ORDERABLES Final Result Performing Organization Address City/[facility] Co de Phone Number [facility] [address] * Thyroid Function [place] (09/10/2024 12:41 PM PIZZA DELIVERY DRIVER) Pathologist [facility] TSH 0.52 0.30 - 4.20 mcIUnit/mL Comment:Testing performed by : [address] [address] Blood 09/10/2024 12:4 1 PM PIZZA DELIVERY DRIVER 09/10/2024 12:50 PM PIZZA DELIVERY DRIVER Jose Carlos Kenyon LAB BLOOD ORDERABLES Final Result Performing Organization Address [facility] Phone Number [facility] [place] [address] * (ABNORMAL) CBC with auto differential (09/10/2024 12:41 PM PIZZA DELIVERY DRIVER) [facility] WBC 7.1 3.8 - 9.9 K/cumm Comment:Testing performed by : [address] [address] Hgb 16.2 13.0 - 17.5 g/dL [facility] Comment:Testing performed by : [address] [address] Hct 44.0 38.9 - 50.3 % [facility] Comment:Testing performed by : [address] [address] Plt 220 150 - 400 K/cumm [facility] Comment:Testing performed by : [address] [address] MPV 9.3 9.1 - 12.3 fL [facility] Comment:Testing performed by : [address] [address] RBC 5.02 4.30 - 5.80 M/cumm [facility] Comment:Testing performed by : [address] [address] MCV 87.6 81.3 - 96.4 fL [facility] Comment:Testing performed by : [address] [address] MCH 32.3 27.1 - 33.3 pg [facility] Comment:Testing performed by : [address] [address] MCHC 36.8(H) 32.3 - 35.7 g/dL [facility] Comment:Testing performed by : [address] [address] RDW CV 12.8 11.1 - 14.9 % [facility] Comment:Testing performed by : [address] [address] RDW SD 41.2 35.7 - 48.1 fL [facility] Comment:Testing performed by : [address] [address] NRBC abs 0.03(H) 0.00 - 0.01 K/cumm [facility] Comment:Testing performed by : [address] [address] Blood Venous blood specimen / Unknown 09/10/2024 12:41 PM PIZZA DELIVERY DRIVER 09/10/2024 12:50 PM PIZZA DELIVERY DRIVER Jose Carlos Kenyon DO LAB BLOOD ORDERABLES Final Result [facility] [address] [facility] Department [place] [address] * (ABNORMAL) Ethanol (09/10/2024 12:41 PM PIZZA DELIVERY DRIVER) Ethanol 299(H) <=10 mg/dL Comment: Interpretive Data Legal limit of intoxication > or = 80 mg/dL Levels > or = 400 mg/dL are potentially TOXIC. Current interpretive data was last revised on 2018. Testing performed by: [address], [address] Blood 09/10/2024 12:4 1 PM PIZZA DELIVERY DRIVER 09/10/2024 12:50 PM PIZZA DELIVERY DRIVER Jose Carlos Kenyon DO LAB BLOOD ORDERABLES Final Result Performing Organization Address [facility] Phone Number [facility] [address] * Acetaminophen level (09/10/2024 12:41 PM PIZZA DELIVERY DRIVER) Acetaminophen <5 <=5 mcg/mL Comment: Interpretive Data Significant hepatic injury may occur and treatment with n-acetyl cysteine is generally recommended if the acetaminophen level exceeds: 150 mcg/mL at 4 hours after ingestion 75 mcg/mL at 8 hours after ingestion 38 mcg/mL at 12 hours after ingestion 19 mcg/mL at 16 hours after ingestion Consult toxicology or poison control ([phone]) for unknown ingestion time. Current interpretive data was last revised 2023. Testing performed by: [address] [address] Blood 09/10/2024 12:4 1 PM PIZZA DELIVERY DRIVER 09/10/2024 12:50 PM PIZZA DELIVERY DRIVER Jose Carlos Kenyon DO LAB BLOOD ORDERABLES Final Result Performing Organization Address [facility] Phone Number [address] [address] * Salicylate level (09/10/2024 12:41 PM PIZZA DELIVERY DRIVER) Salicylate <1.0 <=1.0 mg/dL Comment: Interpretive Data Toxic: 30 mg/dL or greater. Current interpretive data was last revised 2023. Testing performed by: [address] [address] Blood 09/10/2024 12:4 1 PM PIZZA DELIVERY DRIVER 09/10/2024 12:50 PM PIZZA DELIVERY DRIVER Jose Carlos Kenyon DO LAB BLOOD ORDERABLES Final Result Performing Organization Address [facility] Phone Number [facility] [address] [facility] Department [place] [address] * (ABNORMAL) Comprehensive metabolic panel (09/10/2024 12:41 PM PIZZA DELIVERY DRIVER) Sodium 139 135 - 145 mmol/L Comment:Testing performed by : [facility], [address] [place] [address]., [address] Potassium, pl 3.4 3.3 - 4.9 mmol/L [facility] Comment:Testing performed by : [address] [address] Chloride 96(L) 97 - 110 mmol/L [facility] Comment:Testing performed by : [address] [address] CO2 22 22 - 32 mmol/L [facility] Comment:Testing performed by : [address] [address] Anion gap 21(H) 2 - 15 mmol/L [facility] Comment:Testing performed by : [address] [address] BUN 6 6 - 25 mg/dL [facility] Comment:Testing performed by : [address] [address] Creatinine 0.80 0.80 - 1.30 mg/dL [facility] Comment:Testing performed by : [address] [address] Glucose 170 70 - 199 mg/dL [facility] [...] was last revised 2022. Testing performed by: [address] [address] Calcium 9.6 8.5 - 10.3 mg/dL [facility] Comment:Testing performed by : [address] [address] Bilirubin, total 0.5 0.1 - 1.2 mg/dL [facility] Comment:Testing performed by : [address] [address] Protein, pl 8.8(H) 6.5 - 8.5 g/dL [facility] Comment:Testing performed by : [address] [address] Albumin 4.9 3.5 - 5.0 g/dL [facility] Comment:Testing performed by : [address] [address] Alk phos 98 40 - 130 Units/L [facility] Comment:Testing performed by : [address] [address] ALT 63(H) 7 - 55 Units/L [facility] Comment:Testing performed by : [address] [address] AST 116(H) 10 - 50 Units/L [facility] Comment:Testing performed by : [address] [address] Blood 09/10/2024 12:4 1 PM PIZZA DELIVERY DRIVER 09/10/2024 12:50 PM PIZZA DELIVERY DRIVER Jose Carlos Kenyon DO LAB BLOOD ORDERABLES Final Result [facility] [address] [facility] Department [place] [address] * Hepatitis panel, acute Blood (10/05/2023 7:18 PM PIZZA DELIVERY DRIVER) Hep A IgM Nonreactive Nonreactive [facility] Comment: Interpretive Data: If Hep A IgM Ab is reported as Equivocal, a new sample should be drawn in two weeks for testing. Current interpretive data was last revised on 19. Hep B core IgM Nonreactive Nonreactive [facility] Comment: Interpretive Data If HepB Core IgM [...] Nonreactive Nonreactive [facility] Blood 10/05/2023 7:18 PM PIZZA DELIVERY DRIVER 10/05/2023 8:35 PM PIZZA DELIVERY DRIVER Gabino Boothe MD LAB MICROBIOLOGY - GENERAL ORDERABLES Final Result [facility] [address] [facility] Department of Laboratories [place], [place] [id number] from Last 3 Months or Most Recently Relevant to Health Maintenance Insurance [facility] [employer] HMO/POS Advance Directives For more information, please contact: [phone] * Full Code (Latest Code Status on [...] 10:49 AM 12/09/2021 11:27 PM Care Teams Supervisor [employer] Relationship Specialty Start Date End Date Mitchel Garibay DO [address] [place] [address] PCP - General Family Medicine 01/22/19
--- OUTSIDE RECORDS SUMMARY | 2024-11-28 03:06 | XMS_ITS | Clinical Summary ---
Author Organization [facility] Address [address] [place] [address] Care Team Providers Care Cereal Maker Name Role Phone Mitchel Garibay DO Primary Care Provider [phone] [facility],non-owned Affiliates and Associated Physician Practices is amultiple site organization consisting of ambulatory clinics and hospital sitesin [place] and [place]. This disclosure is being madepursuant to the Care Everywhere program and may not contain all information available regarding this patient. Last updated 18.[facility] Allergies Active Allergy Reactions Criticality Noted Date [...] 11/24/2024 Active Cholecalciferol (vitamin D3) 1.25 MG (38662 UT) capsule Take 1 (one) capsule by [...] Assessment & Plan: Left thumb, admitted to [facility] on 06 August, prolonged hospital stay requiring [...] previous history of seizures. Recently admitted to [facility] for active withdrawals. I recommend patient see intensive outpatient program, he is not open to this currently. Follow-up as needed BMI 24.0-24.9, adult 09/04/2019 Cannabis use disorder, moderate, dependence 07/27 Panic disorder 08/21/2019 Alcohol use disorder, severe, dependence 019 Closed bimalleolar fracture of right ankle 07/26 Overview (04/02/2021): Added automatically from request for surgery [id number] Last Assessment & Plan: End of June fractured R ankle after falling down stairs. Did not have surgery. Went to [place] for friend's wedding instead. Was in a hard cast and now in a boot. Using crutches. Is non weight bearing for at least four more weeks. Follow up with Dr. Tony as scheduled. Acute right ankle pain 07/26/2019 Overview (04/02/2021): Added automatically from request for surgery [id number] Marijuana use, continuous 01/22/2019 Overview (04/02/2021): Last [...] pursue this currently. Patient recently seen at [facility], admitted overnight for alcohol withdrawal. [...] Department Care Team Description 11/21/2024 7:50 AM ENDOSCOPY TECH - 11/23/2024 10:52 AM [facility] Hospital Encounter [facility] 3 Transitional Care Unit [address] [place] [id number] Gagandeep Bone, Clarita Oneil, Reynaldo Mott MD Emergency Medicine Discharge Disposition: Home or Self Care 11/21/2024 Travel 10/02/2024 4:37 AM ENDOSCOPY TECH - 10/06/2024 10:32 AM [facility] Hospital Encounter [facility] 3E MED/ONC [address] [place] [id number] Wei Fan DO Hasan, Seba, MD Chilappa, [...] and heating? Not hard at all 11/23/2024 [facility] [place] [place] [facility] - Occupational Stress [...] any time in the past 12 m [facility], were you homeless or living in a fdc (including now)? No 11/23/2024 Sex and Gender Information Value Date Recorded Sex Assigned at Not on file Gender Identity Male 06/20/2021 9:48 PM CDT Sexual Orientation Not on file Last Filed Vital Signs Vital Sign Reading Time Taken Comments Blood Pressure 139/95 11/23/2024 8:02 AM ENDOSCOPY TECH Pulse 86 11/23/2024 8:02 AM ENDOSCOPY TECH Temperature 36.4 C (97.6 F) 11/23/2024 8:02 AM ENDOSCOPY TECH Respiratory Rate 17 11/23/2024 8:02 AM ENDOSCOPY TECH Oxygen Saturation 99% 11/23/2024 8:02 AM ENDOSCOPY TECH Inhaled Oxygen Concentration 30% 03/07/2021 3 :14 PM CDT Weight 92.4 kg (203 lb 9.6 oz) 11/21/2024 12:20 PM ENDOSCOPY TECH Height 188 cm (6' 2 ) 11/21/2024 12:20 PM ENDOSCOPY TECH Body Mass Index 26.14 11/21/2024 12:20 PM ENDOSCOPY TECH Plan of Treatment Health Maintenance Due Date [...] this topic Medical Devices Implanted Type Area Writer Producer Device Identifier Shelf Expiration Date Model / Serial / Lot Nail Im 11mm 180mm Affixus Hip Fem Goal Implanted:Qty: 1 on 03/08/2021 by Madhav Elizabeth DO at [facility] Right: Femur [employer] 10/28/2030 [id number] / / [id number] Screw 10.5mm 95mm 6.5mm Lag Slf-Tap Rvrs Implanted:Qty: 1 on 03/08/2021 by Madhav Elizabeth DO at [facility] Right: Femur [employer] 08/14/2028 [id number] / / [id number] Screw 5mm 38mm 3.5mm Hex Drvr Sckt Hip Implanted:Qty: 1 on 03/08/2021 by Madhav Elizabeth DO at [facility] Right: Femur [employer] 04/29/2030 [id number] / / [id number] Explanted Type Area Writer Producer Device Identifier Shelf Expiration Date Model / Serial / Lot Wire K 2mm 350mm 1 End Troc Pnt Thrd Ss Explanted:Qty: 2 on 03/08/2021 by Madhav Elizabeth DO at [facility] Right: Femur [employer] 07/29/2029 [id number] / / [id number] Procedures Procedure Name Priority Date/Time Associated Diagnosis Comments CARDIAC RHYTHM STRIP ORDER 11/25/2024 5:00 PM ENDOSCOPY TECH RENAL FUNCTION PANEL AM Draw 11/23/2024 4:44 AM ENDOSCOPY TECH LACTIC ACID BLOOD AM Draw 11/23/2024 4:4 4 AM ENDOSCOPY TECH EKG 12-LEAD Routine 11/22/2024 1:57 PM ENDOSCOPY TECH History of seizure due to alcohol withdrawal LACTIC ACID BLOOD STAT 11/22/2024 10: 19 AM ENDOSCOPY TECH VITAMIN D 25-HYDROXY STAT 11/22/2024 2:48 AM ENDOSCOPY TECH COMPREHENSIVE METABOLIC PANEL AM Draw 11/22/2024 2:48 AM ENDOSCOPY TECH LACTIC ACID BLOOD Timed 11/21/2024 6:4 5 PM ENDOSCOPY TECH LACTIC ACID BLOOD STAT 11/21/2024 2:4 5 PM ENDOSCOPY TECH Acidosis URINE DRUG SCREEN IMMUNOASSAY STAT 11/21/2024 1:53 PM ENDOSCOPY TECH URINALYSIS REFLEX TO MICROSCOPIC NO CULTURE STAT 11/21/2024 1:53 PM ENDOSCOPY TECH LEVETIRACETAM LEVEL STAT 11/21/2024 1 1:29 AM ENDOSCOPY TECH 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) PHOSPHORUS BLOOD STAT 11/21/2024 11:2 9 AM ENDOSCOPY TECH Hypophosphatemia BASIC METABOLIC PANEL (CALCIUM TOTAL) STAT 11/21/2024 11:29 AM ENDOSCOPY TECH 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) Hyperkalemia HYDROXYBUTYRATE BETA STAT 11/21/2024 11:29 AM ENDOSCOPY TECH LACTIC ACID BLOOD STAT 11/21/2024 11: 29 AM ENDOSCOPY TECH SARS-COV-2 (COVID-19) FLU A/B RSV PCR RAPID STAT 11/21/2024 11:29 AM ENDOSCOPY TECH XR CHEST 1VW PORTABLE STAT 11/21/2024 10:38 AM ENDOSCOPY TECH 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) SLIDE SCAN HEMATOLOGY STAT 11/21/2024 8:50 AM ENDOSCOPY TECH ALCOHOL ETHYL BLOOD STAT 11/21/2024 8 :50 AM ENDOSCOPY TECH PHOSPHORUS BLOOD STAT 11/21/2024 8:50 AM ENDOSCOPY TECH MAGNESIUM BLOOD STAT 11/21/2024 8:50 AM ENDOSCOPY TECH LIPASE BLOOD STAT 11/21/2024 8:50 AM ENDOSCOPY TECH COMPREHENSIVE METABOLIC PANEL STAT 11/21/2024 8:50 AM ENDOSCOPY TECH CBC W AUTO DIFFERENTIAL STAT 11/21/19 8:50 AM ENDOSCOPY TECH CARDIAC RHYTHM STRIP ORDER 10/07/2024 6:55 PM ENDOSCOPY TECH URINALYSIS REFLEX TO MICROSCOPIC NO CULTURE STAT 10/05/2024 9:20 PM ENDOSCOPY TECH GLUCOSE - POINT OF CARE Routine 10/04/19 12:57 PM ENDOSCOPY TECH COMPREHENSIVE METABOLIC PANEL AM Draw 10/04/2024 3:26 AM ENDOSCOPY TECH CBC W AUTO DIFFERENTIAL AM Draw 10/04/19 3:26 AM ENDOSCOPY TECH COMPREHENSIVE METABOLIC PANEL AM Draw 10/03/2024 6:06 AM ENDOSCOPY TECH MAGNESIUM BLOOD AM Draw 10/03/2024 2:59 AM ENDOSCOPY TECH CBC W/O DIFFERENTIAL AM Draw 10/03/2024 2:59 AM ENDOSCOPY TECH URINE DRUG SCREEN IMMUNOASSAY Routine 10/03/2024 12:08 AM ENDOSCOPY TECH TROPONIN-I HIGH SENSITIVE REFLEX 1HOUR Timed 10/02/2024 12:31 PM ENDOSCOPY TECH TROPONIN-I HIGH SENSITIVE BASELINE + 1HR STAT 10/02/2024 8:23 AM ENDOSCOPY TECH LEVETIRACETAM LEVEL STAT 10/02/2024 6 :00 AM ENDOSCOPY TECH LIPASE BLOOD Add on 10/02/2024 5:04 AM ENDOSCOPY TECH MAGNESIUM BLOOD STAT 10/02/2024 5:04 AM ENDOSCOPY TECH COMPREHENSIVE METABOLIC PANEL STAT 10/02/2024 5:04 AM ENDOSCOPY TECH CBC W AUTO DIFFERENTIAL STAT 10/02/19 5:03 AM ENDOSCOPY TECH ED CRITICAL CARE Routine 10/02/2024 4:48 AM ENDOSCOPY TECH from Last 3 Months Results * CARDIAC RHYTHM STRIP ORDER (11/25/2024 5:00 PM ENDOSCOPY TECH) Only the most recent of2 resultswithin the time period is included. Narrative 11/25/2024 5:00 PM ENDOSCOPY TECH Ordered by an unspecified provider. Scanned Document CARDIAC SERVICES ORD ERABLES * (ABNORMAL) RENAL FUNCTION PANEL (11/23/2024 4:44 AM ENDOSCOPY TECH) Glucose 86 70 - 99 mg/dL 11/23/2024 5:[address] [facility] Sodium 138 136 - 145 mmol/L 11/23/2024 5:[address] [facility] Potassium 3.6 3.5 - 5.1 mmol/L 11/23/2024 5:[address] [facility] Chloride 108(H) 98 - 107 mmol/L 11/23/2024 5:[address] [facility] CO2 22 22 - 29 mmol/L 11/23/2024 5:[address] [facility] Calcium 8.6 8.4 - 10.4 mg/dL 11/23/2024 5:[address] [facility] Anion Gap 8 6 - 16 mmol/L 11/23/2024 5:[address] [facility] BUN 6 5.3 - 18.7 mg/dL 11/23/2024 5:[address] [facility] Creatinine 0.74 0.72 - 1.25 mg/dL 11/23/2024 5:[address] [facility] Albumin 3.4 3.4 - 5.0 gm/dL 11/23/2024 5:[address] [facility] Phosphorus 3.4 2.5 - 4.5 mg/dL 11/23/2024 5:[address] [facility] eGFR by CKD-EPI >90 >=90 mL/min/1.7 3 m2 11/23/2024 5:[address] [facility] Blood BLOOD SPECIMEN / Unknown Lab Venipuncture / Unknown 11/23/2024 4:44 AM ENDOSCOPY TECH 11/23/2024 5:09 AM ENDOSCOPY TECH Reynaldo Almazan MD LAB - CHEMISTRY MANUEL ORTA [facility] Organization Address City/State/ZIP Co de Phone Number [facility] [address] [place] [phone] * LACTIC ACID BLOOD (11/23/2024 4:44 AM ENDOSCOPY TECH) Only the most recent of5 resultswithin the time period is included. Lactic Acid 0.925 <=2 mmol/L 11/23/2024 5:37 AM ENDOSCOPY TECH [facility] Blood BLOOD SPECIMEN / Unknown Lab Venipuncture / Unknown 11/23/2024 4:44 AM ENDOSCOPY TECH 11/23/2024 5:08 AM ENDOSCOPY TECH Reynaldo Almazan MD LAB - CHEMISTRY ORDLori ORTA Performing Organization Address [facility]/ZIP Co de Phone Number [facility] [address] [place] [phone] * EKG 12-LEAD (11/22/2024 1:57 PM ENDOSCOPY TECH) Pathologist [facility] Ventricular Rate 79 BPM [facility] MUSE Atrial Rate 79 BPM [facility] MUSE P-R Interval 150 ms [facility] MUSE QRS Duration ms 86 ms [facility] MUSE Q-T Interval ms 370 ms [facility] MUSE QTC Calculation (Bezet) 424 ms [facility] MUSE Calculated P [place] 56 degrees [facility] MUSE Calculated R [place] 35 degrees [facility] MUSE Calculated T [place] 24 degrees [facility] MUSE Interpretation EKG NORMAL SINUS RHYTHM WITH SINUS ARRHYTHMIA NORMAL ECG Confirmed by DO COBURN STEPHANIE ([id number]) on 11/22/2024 6:29:46 PM [facility] MUSE 11/22/2024 1:57 PM ENDOSCOPY TECH 11/22/2024 6:29 PM ENDOSCOPY TECH Reynaldo Almazan MD ECG ORDERABLES Performing Organization Address City/[facility]/ZIP Co de Phone Number [facility] * (ABNORMAL) VITAMIN D 25-HYDROXY (11/22/2024 2:48 AM ENDOSCOPY TECH) Pathologist [facility] Vitamin D, 25 Hydroxy 22.2(L) 30 - 80 ng/mL 11/22/2024 10:39 AM ENDOSCOPY TECH [facility] Blood BLOOD SPECIMEN / Unknown Lab Venipuncture / Unknown 11/22/2024 2:48 AM ENDOSCOPY TECH 11/22/2024 3:[address] [facility] - 11/22/2024 10:39 AM [facility] Vitamin D Status: Deficiency <20 ng/mL Insufficiency 20-30 ng/mL Sufficiency 30-100 ng/mL Toxicity >100 ng/mL Reynaldo Almazan MD LAB - CHEMISTRY MANUEL ORTA [facility] Organization Address City/State/ZIP Co de Phone Number [facility] [address] [place] [address] * COMPREHENSIVE METABOLIC PANEL (11/22/2024 2:48 AM [facility]) Only the most recent of5 resultswithin the time period is included. [facility] Glucose 90 70 - 99 mg/dL 11/22/2024 4:[address] [facility] Sodium 136 136 - 145 mmol/L 11/22/2024 4:[address] [facility] Potassium 3.8 3.5 - 5.1 mmol/L 11/22/2024 4:[address] [facility] Chloride 102 98 - 107 mmol/L 11/22/2024 4:[address] [facility] CO2 23 22 - 29 mmol/L 11/22/2024 4:[address] [facility] Calcium 9.0 8.4 - 10.4 mg/dL 11/22/2024 4:[address] [facility] Anion Gap 11 6 - 16 mmol/L 11/22/2024 4:[address] [facility] BUN 6 5.3 - 18.7 mg/dL 11/22/2024 4:[address] [facility] Creatinine 0.80 0.72 - 1.25 mg/dL 11/22/2024 4:[address] [facility] Alkaline Phosphatase 53 40 - 150 U/L 11/22/2024 4:[address] [facility] ALT 32 0 - 55 U/L 11/22/2024 4:[address] [facility] AST 28 5 - 34 U/L 11/22/2024 4:[address] [facility] Protein Total 7.2 6.4 - 8.3 gm/dL 11/22/2024 4:[address] [facility] Albumin 3.8 3.4 - 5.0 gm/dL 11/22/2024 4:[address] [facility] Bilirubin Total 1.2 0.2 - 1.2 mg/dL 11/22/2024 4:[address] [facility] eGFR by CKD-EPI >90 >=90 mL/min/1.7 3 m2 11/22/2024 4:[address] [facility] Blood BLOOD SPECIMEN / Unknown Lab Venipuncture / Unknown 11/22/2024 2:48 AM ENDOSCOPY TECH 11/22/2024 3:40 AM ENDOSCOPY TECH Reynaldo Almazan MD LAB - CHEMISTRY MANUEL ORTA [facility] [address] [place] [address] * (ABNORMAL) URINALYSIS REFLEX TO MICROSCOPIC NO CULTURE (11/21/2024 1:53 PM ENDOSCOPY TECH) Only the most recent of2 resultswithin the time period is included. Color UA Yellow Yellow, Straw 11/21/2024 2:[address] [facility] Clarity UA Clear Clear 11/21/2024 2:[address] [facility] Glucose UA Normal Normal 11/21/2024 2:[address] [facility] Bilirubin UA Negative Negative 11/21/2024 2:[address] [facility] Ketone UA 1+(A) Negative 11/21/2024 2:[address] [facility] Specific [place] UA 1.018 1.005 - 1.030 11/21/2024 2:[address] [facility] Blood UA Negative Negative 11/21/2024 2:[address] [facility] pH UA 6.5 5.0 - 9.0 pH 11/21/2024 2:[address] [facility] Protein UA 2+(A) Negative 11/21/2024 2:[address] [facility] Urobilinogen UA Normal Normal mg/dL 025 2:[address] [facility] Nitrite UA Negative Negative 11/21/2024 2:[address] [facility] Leukocyte UA Negative Negative 11/21/2024 2:[address] [facility] RBC UA 3-5 0 - 5 # /hpf 11/21/2024 2:17 PM ENDOSCOPY TECH [facility] WBC UA 0-5 0 - 5 # /hpf 11/21/2024 2:17 PM ENDOSCOPY TECH [facility] Bacteria UA None Seen None Seen 11/21/2024 2:17 PM ENDOSCOPY TECH [facility] Squamous Epithelial Cells None Seen 0 - 5 /hpf 11/21/2024 2:17 PM ENDOSCOPY TECH [facility] Urine URINE SPECIMEN OBTAINED BY CLEAN CATCH PROCEDURE / Unknown Collection / Unknown 11/21/2024 1:53 PM ENDOSCOPY TECH 11/21/2024 2:10 PM ENDOSCOPY TECH Narrative [facility] - 11/21/2024 2:17 PM ENDOSCOPY TECH Gagandeep Bone DO LAB - URINALYSIS ORD ERABLES [facility] [address] [place] [address] * (ABNORMAL) URINE DRUG SCREEN IMMUNOASSAY (11/21/2024 1:53 PM ENDOSCOPY TECH) Only the most recent of2 resultswithin the time period is included. [facility] Amphetamines Screen Urine Not detected Not detected 11/21/2024 3:14 PM ENDOSCOPY TECH [facility] Barbiturates Screen Urine Detected(A) Not detected 11/21/2024 3:[address] [facility] Benzodiazepines Screen Urine Detected(A) Not detected 11/21/2024 3:[address] [facility] Cannabinoids Screen Urine Detected(A) Not detected 11/21/2024 3:[address] [facility] Cocaine Screen Urine Not detected Not detected 11/21/2024 3:[address] [facility] Fentanyl Urine Not detected Not detected 11/21/2024 3:[address] [facility] Methadone Screen Urine Not detected Not detected 11/21/2024 3:[address] [facility] Opiate Screen Urine Not detected Not detected 11/21/2024 3:[address] [facility] Phencyclidine Screen Urine Not detected Not detected 11/21/2024 3:[address] [facility] Urine URINE / Unknown Collection / Unknown 11/21/2024 1:53 PM ENDOSCOPY TECH 11/21/2024 2:10 PM ENDOSCOPY TECH Narrative [facility] - 11/21/2024 3:14 PM ENDOSCOPY TECH This drug screen is designed for MEDICAL [...] DO LAB - URINE CHEMISTR Y ORDERABLES [facility] [address] [place] [address] * SARS-COV-2 (COVID-19) FLU A/B RSV PCR RAPID (11/21/2024 11:29 AM ENDOSCOPY TECH) Pathologist [facility] COVID-19 PCR Not detected Not detected 11/21/19 12:[address] [facility] Influenza A PCR Not detected Not detected 11/21/2024 12:[address] [facility] Influenza B PCR Not detected Not detected 11/21/2024 12:[address] [facility] RSV PCR Not detected Not detected 11/21/2024 12:[address] [facility] Microbiology SPECIMEN FROM NASOPHARYNGEAL STRUCTURE / Unknown Collection / Unknown 11/21/2024 11:29 AM ENDOSCOPY TECH 11/21/2024 11:29 AM ENDOSCOPY TECH Narrative [facility] - 11/21/2024 12:07 PM ENDOSCOPY TECH This nucleic acid amplification assay has been [...] - MICROBIOLOGY O RDERABLES Performing Organization Address [facility] Co de Phone Number [facility] [address] [place] [phone] * LEVETIRACETAM LEVEL (11/21/2024 11:29 AM ENDOSCOPY TECH) Only the most recent of2 resultswithin the time period is included. Levetiracetam 24.63 10 - 40 ug/mL 11/21/2024 11:55 AM ENDOSCOPY TECH [facility] Blood BLOOD SPECIMEN / Unknown Venipuncture / Unknown 11/21/2024 11:29 AM ENDOSCOPY TECH 11/21/2024 11:29 AM ENDOSCOPY TECH Theresa Espinoza SALES HOST-SECURITIES UNDERWRITER LAB - THERAP EUTIC DRUG MONITORING ORDERABLES Performing Organization Address [facility] de Phone Number [facility] [address] [place] [address] * HYDROXYBUTYRATE BETA (11/21/2024 11:29 AM ENDOSCOPY TECH) Beta-Hydroxybu tyrate <0.50 <0.50 mmol/L 11/21/2024 11:45 AM ENDOSCOPY TECH [facility] Blood BLOOD SPECIMEN / Unknown Venipuncture / Unknown 11/21/2024 11:29 AM ENDOSCOPY TECH 11/21/2024 11:29 AM ENDOSCOPY TECH Narrative [facility] - 11/21/2024 11:45 AM ENDOSCOPY TECH Results >1.5 mmol/L may be indicative of diabetic ketoacidosis. Use in conjunction with Serum Glucose levels. Aleta Vieira MD LAB - CHEMISTRY MANUEL ORTA Performing Organization Address [facility] Co de Phone Number [facility] [address] [place] [phone] * (ABNORMAL) BASIC METABOLIC PANEL (CALCIUM TOTAL) (11/21/2024 11:29 AM ENDOSCOPY TECH) Glucose 113(H) 70 - 99 mg/dL 11/21/2024 11:45 AM ENDOSCOPY TECH [facility] Sodium 137 136 - 145 mmol/L 11/21/2024 11:[address] [facility] Potassium 3.7 3.5 - 5.1 mmol/L 11/21/2024 11:[address] [facility] Chloride 102 98 - 107 mmol/L 11/21/2024 11:[address] [facility] CO2 18(L) 22 - 29 mmol/L 11/21/2024 11:[address] [facility] Calcium 9.3 8.4 - 10.4 mg/dL 11/21/2024 11:[address] [facility] Anion Gap 17(H) 6 - 16 mmol/L 11/21/2024 11:[address] [facility] BUN 10 5.3 - 18.7 mg/dL 11/21/2024 11:[address] [facility] Creatinine 0.93 0.72 - 1.25 mg/dL 11/21/2024 11:[address] [facility] eGFR by CKD-EPI >90 >=90 mL/min/1.7 3 m2 11/21/2024 11:[address] [facility] Blood BLOOD SPECIMEN / Unknown Venipuncture / Unknown 11/21/2024 11:29 AM ENDOSCOPY TECH 11/21/2024 11:29 AM ENDOSCOPY TECH Theresa Espinoza APRN-SECURITIES UNDERWRITER LAB - CHEMIS TRY ORDERABLES Performing Organization Address [facility] de Phone Number [facility] [address] [place] [phone] * PHOSPHORUS BLOOD (11/21/2024 11:29 AM ENDOSCOPY TECH) Only the most recent of2 resultswithin the time period is included. Phosphorus 3.7 2.5 - 4.5 mg/dL 11/21/2024 11:[address] [facility] Blood BLOOD SPECIMEN / Unknown Venipuncture / Unknown 11/21/2024 11:29 AM ENDOSCOPY TECH 11/21/2024 11:29 AM ENDOSCOPY TECH Theresa Espinoza SALES HOST-SECURITIES UNDERWRITER LAB - CHEMIS TRY ORDERABLES Performing Organization Address City/State/[facility] Co de Phone Number [facility] [address] [place] [address] * XR Chest 1Vw Portable (11/21/2024 10:38 AM ENDOSCOPY TECH) Anatomical Region Laterality Modality Chest Radiographic Ashley ging 11/21/2024 10:4 2 AM ENDOSCOPY TECH Narrative 11/21/2024 10:42 AM ENDOSCOPY TECH PROCEDURE: XR CHEST 1VW PORTABLE DATE/TIME OF [...] * SLIDE SCAN HEMATOLOGY (11/21/2024 8:50 AM ENDOSCOPY TECH) RBC Morphology NORMAL 11/21/2024 10:15 AM ENDOSCOPY TECH [facility] Blood BLOOD SPECIMEN / Unknown Venipuncture / Unknown 11/21/2024 8:50 AM ENDOSCOPY TECH 11/21/2024 8:51 AM ENDOSCOPY TECH Gagandeep Bone DO LAB - HEMATOLOGY ORD ERABLES [facility] [address] [place] [address] * (ABNORMAL) CBC W AUTO DIFFERENTIAL (11/21/2024 8:50 AM [facility]) Only the most recent of3 resultswithin the time period is included. WBC 10.1 4.0 - 10.7 x10E9/L 11/21/2024 10:[address] [facility] RBC Count 5.62 4.30 - 5.80 x10E12/L 11/21/2024 10:[address] [facility] Hemoglobin 17.4 13.3 - 17.5 g/dL 11/21/2024 10:[address] [facility] Hematocrit 47.1 38.7 - 51.1 % 11/21/2024 10:[address] [facility] MCV 83.8 80.0 - 98.0 fL 11/21/2024 10:[address] [facility] MCH 31.0 26.7 - 33.6 pg 11/21/2024 10:[address] [facility] MCHC 36.9(H) 31.7 - 36.3 g/dL 11/21/2024 10:[address] [facility] RDW-CV 12.2 11.3 - 14.8 % 11/21/2024 10:[address] [facility] Platelet Count 311 150 - 420 x10E9/L 11/21/2024 10:[address] [facility] MPV 9.8 7.8 - 11.4 fL 11/21/2024 10:[address] [facility] Neutrophil % 71.9 41.0 - 74.0 % 11/21/2024 10:[address] [facility] Lymphocyte % 23.5 17.0 - 47.0 % 11/21/2024 10:[address] [facility] Monocyte % 3.5 3.0 - 11.0 % 11/21/2024 10:[address] [facility] Eosinophil % 0.2 0.0 - 7.0 % 11/21/2024 10:[address] [facility] Basophil % 0.6 0.0 - 1.6 % 11/21/2024 10:[address] [facility] Immature Granulocytes % 0.3 0.0 - 1.0 % 11/21/2024 10:[address] [facility] Neutrophil Absolute 7.24 1.60 - 7.50 x10E9/L 11/21/2024 10:15 AM ENDOSCOPY TECH [facility] Lymphocyte Absolute 2.37 1.00 - 4.40 x10E9/L 11/21/2024 10:15 AM ENDOSCOPY TECH [facility] Monocyte Absolute 0.35 0.15 - 1.00 x10E9/L 11/21/2024 10:15 AM ENDOSCOPY TECH [facility] Eosinophil Absolute 0.02 0.00 - 0.60 x10E9/L 11/21/2024 10:15 AM ENDOSCOPY TECH [facility] Basophil Absolute 0.06 0.00 - 0.13 x10E9/L 11/21/2024 10:15 AM ENDOSCOPY TECH [facility] Blood BLOOD SPECIMEN / Unknown Venipuncture / Unknown 11/21/2024 8:50 AM ENDOSCOPY TECH 11/21/2024 8:51 AM ENDOSCOPY TECH Gagandeep Bone DO LAB - HEMATOLOGY ORD ERABLES Performing Organization Address City/[facility]/ZIP Co de Phone Number [facility] [address] [place] [phone] * MAGNESIUM BLOOD (11/21/2024 8:50 AM ENDOSCOPY TECH) Only the most recent of3 resultswithin the time period is included. Magnesium 1.8 1.6 - 2.6 mg/dL 11/21/2024 9:[address] [facility] Blood BLOOD SPECIMEN / Unknown Venipuncture / Unknown 11/21/2024 8:50 AM ENDOSCOPY TECH 11/21/2024 8:51 AM ENDOSCOPY TECH Gagandeep Bone DO LAB - CHEMISTRY ORDE RABLES Performing Organization Address City/[facility]/ZIP Co de Phone Number [facility] [address] [place] [phone] * LIPASE BLOOD (11/21/2024 8:50 AM ENDOSCOPY TECH) Only the most recent of2 resultswithin the time period is included. Lipase 25 <60 U/L 11/21/2024 9:12 AM ENDOSCOPY TECH [facility] Blood BLOOD SPECIMEN / Unknown Venipuncture / Unknown 11/21/2024 8:50 AM ENDOSCOPY TECH 11/21/2024 8:51 AM ENDOSCOPY TECH Gagandeep Bone DO LAB - CHEMISTRY MANUEL ORTA Performing Organization Address [facility] Co de Phone Number [facility] [address] [place] [phone] * (ABNORMAL) ALCOHOL ETHYL BLOOD (11/21/2024 8:50 AM ENDOSCOPY TECH) Ethanol 77.0(H) <10 mg/dL 11/21/2024 9:18 AM ENDOSCOPY TECH [facility] Ethanol Calculated 0.077 <=0.100 gm/dL 11/21/2024 9:[address] [facility] Blood BLOOD SPECIMEN / Unknown Venipuncture / Unknown 11/21/2024 8:50 AM ENDOSCOPY TECH 11/21/2024 8:51 AM ENDOSCOPY TECH Narrative [facility] - 11/21/2024 9:18 AM ENDOSCOPY TECH Ethanol Interp <10: None Detected Depression of [...] - CHEMISTRY MANUEL ORTA Performing Organization Address [facility] Co de Phone Number [facility] [address] [place] [phone] * GLUCOSE - POINT OF CARE (10/04/2024 12:57 PM ENDOSCOPY TECH) Glucose WB/POC 83 70 - 99 mg/dL 10/04/2024 1:06 PM ENDOSCOPY TECH [facility] Specimen Type Cap Fingerstick 2024 1:06 PM ENDOSCOPY TECH [facility] Blood BLOOD SPECIMEN / Unknown 10/04/2024 12:57 PM ENDOSCOPY TECH 10/04/2024 1:06 PM ENDOSCOPY TECH Vargas Boothe MD LAB - POINT OF CARE ORDERABLES [facility] [address] [place] [address] * (ABNORMAL) CBC W/O DIFFERENTIAL (10/03/2024 2:59 AM [facility] WBC 4.0 4.0 - 10.7 x10E9/L 10/03/2024 4:[address] [facility] RBC Count 3.27(L) 4.30 - 5.80 x10E12/L 10/03/2024 4:[address] [facility] Hemoglobin 10.6(L) 13.3 - 17.5 g/dL 10/03/2024 4:[address] [facility] Hematocrit 29.9(L) 38.7 - 51.1 % 10/03/2024 4:[address] [facility] MCV 91.4 80.0 - 98.0 fL 10/03/2024 4:[address] [facility] MCH 32.4 26.7 - 33.6 pg 10/03/2024 4:[address] [facility] MCHC 35.5 31.7 - 36.3 g/dL 10/03/2024 4:[address] [facility] RDW-CV 12.7 11.3 - 14.8 % 10/03/2024 4:[address] [facility] Platelet Count 93(L) 150 - 420 x10E9/L 10/03/2024 4:[address] [facility] MPV 10.5 7.8 - 11.4 fL 10/03/2024 4:[address] [facility] NRBC 1.0(H) <=0.0 /100 WBC 10/03/2024 4:[address] [facility] Blood BLOOD SPECIMEN / Unknown Venipuncture / Unknown 10/03/2024 2:59 AM ENDOSCOPY TECH 10/03/2024 3:40 AM [facility] Aleta Vieira MD LAB - HEMATOLOGY ORD ERABLES [facility] [address] [place], [place] [phone] * TROPONIN-I HIGH SENSITIVE REFLEX 1HOUR (10/02/2024 12:31 PM ENDOSCOPY TECH) Troponin I High Sensitive <3 <=35 ng/L 10/02/2024 1:12 PM ENDOSCOPY TECH [facility] Delta Troponin I HS 10/02/2024 1:12 PM ENDOSCOPY TECH [facility] Comment:Delta value intentio jem not calculated. Baseline to 1 hour specimen collection interval exceeded. Blood BLOOD SPECIMEN / Unknown Venipuncture / Unknown 10/02/2024 12:31 PM ENDOSCOPY TECH 10/02/2024 12:42 PM ENDOSCOPY TECH Orlando Bowers MD LAB - CHEMISTRY MANUEL ORTA Performing Organization Address [facility]/ZIP Co de Phone Number [facility] [address] [place] [phone] * TROPONIN-I HIGH SENSITIVE BASELINE + 1HR (10/02/2024 8:23 AM ENDOSCOPY TECH) Troponin I High Sensitive <3 <=35 ng/L 10/02/2024 8:55 AM ENDOSCOPY TECH [facility] Blood BLOOD SPECIMEN / Unknown Venipuncture / Unknown 10/02/2024 8:23 AM ENDOSCOPY TECH 10/02/2024 8:28 AM ENDOSCOPY TECH Juvencio Virk MD LAB - CHEMISTRY MANUEL ORTA Performing Organization Address [facility]/ZIP Co de Phone Number [facility] [address] [place] [phone] * Critical Care (10/02/2024 4:48 AM ENDOSCOPY TECH) Narrative Wei Fan DO - 10/02/2024 4:48 AM ENDOSCOPY TECH Wei Fan DO 10/02/2024 6:49 AM Critical [...] Effective Dates Phone Address Type TPL [employer] LIABILITY TPL [employer] LIABILITY [id number] Effective for all dates Third [employer] Party Liability [employer] [id number] 11/28/2016-Pres ent [address] [place] [address] PPO [employer]M [employer] [id number] 11/28/2016-Pres ent [address] [place] [address] PPO [employer]M [employer] [id number] 11/28/2016-Pres ent [address] [place] [address] PPO [employer]M [employer] [id number] 11/28/2016-Pres ent [address] [place] [address] PPO [employer]M [employer] [id number] 11/28/2016-Pres ent [address] [place] [address] PPO [employer]M [employer] [id number] 11/28/2016-Pres ent [address] [place] [address] PPO [employer]M [employer] [id number] 11/28/2016-Pres ent [address] [place] [address] PPO [employer] [id number] 11/28/2016-Pres ent [address] [place] [address] PPO [employer]M [employer] [id number] 11/28/2016-Pres ent [address] [place] [address] PPO [employer]M [employer] [id number] 11/28/2016-Pres ent [address] [place] [address] PPO [employer]M [employer] [id number] 11/28/2016-Pres ent [address] [place] [address] PPO [employer]M [employer] [id number] 11/28/2016-Pres ent [address] [place] [address] PPO [employer] [id number] 11/28/2016-Pres ent [address] [place] [address] PPO [employer]M [employer] [id number] 11/28/2016-Pres ent [address] [place] [address] PPO [employer]M [employer] [id number] 11/28/2016-Pres ent [address] [place] [address] PPO [employer]M [employer] [id number] 11/28/2016-Pres ent [address] [place] [address] PPO [employer]M [employer] [id number] 11/28/2016-Pres ent [address] [place] [address] PPO [employer]M [employer] [id number] 11/28/2016-Pres ent [address] [place] [address] PPO [employer]M [employer] [id number] 11/28/2016-Pres ent [address] [place] [address] PPO [employer]M [employer] [id number] 11/28/2016-Pres ent [address] [place] [address] PPO [employer]M [employer] [id number] 11/28/2016-Pres ent [address] [place] [address] PPO [employer]M [employer] [id number] 11/28/2016-Pres ent [address] [place] [address] PPO [employer]M [employer] [id number] 11/28/2016-Pres ent [address] [place] [address] PPO [employer]M [employer] [id number] 11/28/2016-Pres ent [address] [place] [address] PPO [employer]M [employer] [id number] 11/28/2016-Pres ent [address] [place] [address] PPO [employer]M [employer] [id number] 11/28/2016-Pres ent [address] [place] [address] PPO [employer]M [employer] [id number] 11/28/2016-Pres ent [address] [place] [address] PPO AN[employer]M [employer] [id number] 11/28/2016-Pres ent [address] [place] [address] PPO AN[employer]M [employer] [id number] 11/28/2016-Pres ent [address] [place] [address] PPO AN[employer]M [employer] [id number] 11/28/2016-Pres ent [address] [place] [address] PPO AN[employer]M [employer] [id number] 11/28/2016-Pres ent [address] [place] [address] PPO [employer]M [employer] [id number] 11/28/2016-Pres ent [address] [place] [address] PPO AN[employer]M [employer] [id number] 11/28/2016-Pres ent [address] [place] [address] PPO AN[employer]M [employer] [id number] 11/28/2016-Pres ent [address] [place] [address] PPO AN[employer]M [employer] [id number] 11/28/2016-Pres ent [address] [place] [address] PPO AN[employer]M [employer] [id number] 11/28/2016-Pres ent [address] [place] [address] PPO AETNA AETNA PPO/POS/OA [id number] 01/03/2024-Pre sent [address] [place] [address] PPO Advance Directives * Full Code (Latest [...] 12:44 AM 06/21/2021 7:37 PM Care Teams Cereal Maker Relationship Specialty Start Date End Date [place], Mitchel Nael, DO PCP - General Family Medicine 03/13/19
--- OUTSIDE RECORDS SUMMARY | 2024-11-28 03:06 | XMS_ITS | Clinical Summary ---
Author Organization [facility] Address [address] [place] [address] Phone Care Team Providers Care Director Of Parks And Recreation Name Role Phone iMtchel Garibay Primary Care Provider [phone] Allergies No known active allergies Medications No known medications Social History Tobacco Use Types Packs/Day Years Used Date Smoking Tobacco: Some Days Cigarettes Smokeless Tobacco: Never Alcohol Use Standard Drinks/Week Comments Yes 0 (1 standard drink = 0.6 oz pur e alcohol) Sex and Gender Information Value Date Recorded Sex Assigned at Not on file Legal Sex Male 1:26 PM CDT Gender Identity Not on file Sexual Orientation Not on file Last Filed Vital Signs Vital Sign Reading Time Taken Comments Blood Pressure 137/73 07/22/2019 1:41 PM CDT Pulse 99 07/22/2019 1:41 PM CDT Temperature 36.7 C (98 F) 07/22/2019 1:41 PM CDT Respiratory Rate 20 07/22/2019 1:41 PM CDT Oxygen Saturation 100% 07/22/2019 1:41 PM CDT Inhaled Oxygen Concentration - - Weight 82.6 kg (182 lb) 07/22/2019 1:41 PM CDT Height 188 cm (6' 2 ) 07/22/2019 1:41 PM CDT Body Mass Index 23.37 07/22/2019 1:41 PM CDT Plan of Treatment Health Maintenance Due Date Last Done Comments DTAP/TDAP/TD VACCINES (1 - Tdap) 2009 HEPATITIS B VACCINES (1 of 3 - 19+ 3-dose series) 2009 INFLUENZA VACCINE (#1) 2024 HPV VACCINES Aged Out No longer eligi ble based on patient's age to complete this topic Insurance [employer] BLUE ACCESS/TRUE BLUE PPO Care Teams Director Of Parks And Recreation Relationship Specialty Start Date End Date Mitchel Garibay DO [id number] [place] [address] PCP - General Family Practice 07/22/19
--- OUTSIDE RECORDS SUMMARY | 2024-11-28 03:06 | XMS_ITS | Referral Summary ---
Author Organization [facility] Address [address] [place] [address] Care Team Providers Care Tunnel Miner Name Role Phone Mitchel Garibay Primary Care Provider [phone] Source Comments [facility],non-owned Affiliates and Associated Physician Practices is amultiple site organization consisting of ambulatory clinics and hospital sitesin [place], [place], [place] and [place]. This disclosure is being madepursuant to the Care Everywhere program and may not contain all information available regarding this patient. Last updated 18.[facility] Encounters Date Type Department Care Team Description 11/21/2024 7:50 AM LEGAL DOCUMENT ASSISTANT - 11/23/2024 10:52 AM [facility] Hospital Encounter [facility] 3 Transitional Care Unit [address] [place] [address] Gagandeep Bone, Clarita Oneil, Reynaldo Mott MD Emergency Medicine Discharge Disposition: Home or Self Care 11/21/2024 Travel 10/02/2024 4:37 AM LEGAL DOCUMENT ASSISTANT - 10/06/2024 10:32 AM [facility] Hospital Encounter [facility] 3E MED/ONC [address] [place] [address] Wei Fan DO Hasan, Seba, MD Chilappa, [...] 11/24/2024 Active Cholecalciferol (vitamin D3) 1.25 MG (57240 UT) capsule Take 1 (one) capsule by [...] Assessment & Plan: Left thumb, admitted to [facility] on 06 August, prolonged hospital stay requiring [...] previous history of seizures. Recently admitted to [facility] for active withdrawals. I recommend patient see intensive outpatient program, he is not open to this currently. Follow-up as needed BMI 24.0-24.9, adult 09/04/2019 Cannabis use disorder, moderate, dependence 07/27 Panic disorder 08/21/2019 Alcohol use disorder, severe, dependence 019 Closed bimalleolar fracture of right ankle 07/26 Overview (04/02/2021): Added automatically from request for surgery [id number] Last Assessment & Plan: End of June fractured R ankle after falling down stairs. Did not have surgery. Went to [place] for friend's wedding instead. Was in a hard cast and now in a boot. Using crutches. Is non weight bearing for at least four more weeks. Follow up with Dr. Tony as scheduled. Acute right ankle pain 07/26/2019 Overview (04/02/2021): Added automatically from request for surgery [id number] Marijuana use, continuous 01/22/2019 Overview (04/02/2021): Last [...] pursue this currently. Patient recently seen at [facility], admitted overnight for alcohol withdrawal. Given [...] and heating? Not hard at all 11/23/2024 [facility] Occupat ional Health - Occupational Stress [...] any time in the past 12 m [facility], were you homeless or living in a alf (including now)? No 11/23/2024 Sex and Gender Information Value Date Recorded Sex Assigned at Not on file Gender Identity Male 06/20/2021 9:48 PM CDT Sexual Orientation Not on file Last Filed Vital Signs Vital Sign Reading Time Taken Comments Blood Pressure 139/95 11/23/2024 8:02 AM LEGAL DOCUMENT ASSISTANT Pulse 86 11/23/2024 8:02 AM LEGAL DOCUMENT ASSISTANT Temperature 36.4 C (97.6 F) 11/23/2024 8:02 AM LEGAL DOCUMENT ASSISTANT Respiratory Rate 17 11/23/2024 8:02 AM LEGAL DOCUMENT ASSISTANT Oxygen Saturation 99% 11/23/2024 8:02 AM LEGAL DOCUMENT ASSISTANT Inhaled Oxygen Concentration 30% 03/07/2021 3 :14 PM CDT Weight 92.4 kg (203 lb 9.6 oz) 11/21/2024 12:20 PM LEGAL DOCUMENT ASSISTANT Height 188 cm (6' 2 ) 11/21/2024 12:20 PM LEGAL DOCUMENT ASSISTANT Body Mass Index 26.14 11/21/2024 12:20 PM LEGAL DOCUMENT ASSISTANT Functional Status Functional Status Response Date of [...] on file Medical Devices Implanted Type Area Record Changer Device Identifier Shelf Expiration Date Model / Serial / Lot Nail Im 11mm 180mm Affixus Hip Fem Goal Implanted:Qty: 1 on 03/08/2021 by Madhav Elizabeth DO at [facility] Right: Femur [employer] 10/28/2030 [id number] / / [id number] Screw 10.5mm 95mm 6.5mm Lag Slf-Tap Rvrs Implanted:Qty: 1 on 03/08/2021 by Madhav Elizabeth DO at [facility] Right: Femur [employer] 08/14/2028 [id number] / / [id number] Screw 5mm 38mm 3.5mm Hex Drvr Sckt Hip Implanted:Qty: 1 on 03/08/2021 by Madhav Elizabeth DO at [facility] Right: Femur [employer] 04/29/2030 [id number] / / [id number] Explanted Type Area Record Changer Device Identifier Shelf Expiration Date Model / Serial / Lot Wire K 2mm 350mm 1 End Troc Pnt Thrd Ss Explanted:Qty: 2 on 03/08/2021 by Madhav Elizabeth, DO at [facility] Right: Femur [employer] 07/29/2029 [id number] / / [id number] Procedures Procedure Name Priority Date/Time Associated Diagnosis Comments CARDIAC RHYTHM STRIP ORDER 11/25/2024 5:00 PM LEGAL DOCUMENT ASSISTANT RENAL FUNCTION PANEL AM Draw 11/23/2024 4:44 AM LEGAL DOCUMENT ASSISTANT LACTIC ACID BLOOD AM Draw 11/23/2024 4:4 4 AM LEGAL DOCUMENT ASSISTANT EKG 12-LEAD Routine 11/22/2024 1:57 PM LEGAL DOCUMENT ASSISTANT History of seizure due to alcohol withdrawal LACTIC ACID BLOOD STAT 11/22/2024 10: 19 AM LEGAL DOCUMENT ASSISTANT VITAMIN D 25-HYDROXY STAT 11/22/2024 2:48 AM LEGAL DOCUMENT ASSISTANT COMPREHENSIVE METABOLIC PANEL AM Draw 11/22/2024 2:48 AM LEGAL DOCUMENT ASSISTANT LACTIC ACID BLOOD Timed 11/21/2024 6:4 5 PM LEGAL DOCUMENT ASSISTANT LACTIC ACID BLOOD STAT 11/21/2024 2:4 5 PM LEGAL DOCUMENT ASSISTANT Acidosis URINE DRUG SCREEN IMMUNOASSAY STAT 11/21/2024 1:53 PM LEGAL DOCUMENT ASSISTANT URINALYSIS REFLEX TO MICROSCOPIC NO CULTURE STAT 11/21/2024 1:53 PM LEGAL DOCUMENT ASSISTANT LEVETIRACETAM LEVEL STAT 11/21/2024 1 1:29 AM LEGAL DOCUMENT ASSISTANT 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) PHOSPHORUS BLOOD STAT 11/21/2024 11:2 9 AM LEGAL DOCUMENT ASSISTANT Hypophosphatemia BASIC METABOLIC PANEL (CALCIUM TOTAL) STAT 11/21/2024 11:29 AM LEGAL DOCUMENT ASSISTANT 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) Hyperkalemia HYDROXYBUTYRATE BETA STAT 11/21/2024 11:29 AM LEGAL DOCUMENT ASSISTANT LACTIC ACID BLOOD STAT 11/21/2024 11: 29 AM LEGAL DOCUMENT ASSISTANT SARS-COV-2 (COVID-19) FLU A/B RSV PCR RAPID STAT 11/21/2024 11:29 AM LEGAL DOCUMENT ASSISTANT XR CHEST 1VW PORTABLE STAT 11/21/2024 10:38 AM LEGAL DOCUMENT ASSISTANT 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) SLIDE SCAN HEMATOLOGY STAT 11/21/2024 8:50 AM LEGAL DOCUMENT ASSISTANT ALCOHOL ETHYL BLOOD STAT 11/21/2024 8 :50 AM LEGAL DOCUMENT ASSISTANT PHOSPHORUS BLOOD STAT 11/21/2024 8:50 AM LEGAL DOCUMENT ASSISTANT MAGNESIUM BLOOD STAT 11/21/2024 8:50 AM LEGAL DOCUMENT ASSISTANT LIPASE BLOOD STAT 11/21/2024 8:50 AM LEGAL DOCUMENT ASSISTANT COMPREHENSIVE METABOLIC PANEL STAT 11/21/2024 8:50 AM LEGAL DOCUMENT ASSISTANT CBC W AUTO DIFFERENTIAL STAT 11/21/19 8:50 AM LEGAL DOCUMENT ASSISTANT CARDIAC RHYTHM STRIP ORDER 10/07/2024 6:55 PM LEGAL DOCUMENT ASSISTANT URINALYSIS REFLEX TO MICROSCOPIC NO CULTURE STAT 10/05/2024 9:20 PM LEGAL DOCUMENT ASSISTANT GLUCOSE - POINT OF CARE Routine 10/04/19 12:57 PM LEGAL DOCUMENT ASSISTANT COMPREHENSIVE METABOLIC PANEL AM Draw 10/04/2024 3:26 AM LEGAL DOCUMENT ASSISTANT CBC W AUTO DIFFERENTIAL AM Draw 10/04/19 3:26 AM LEGAL DOCUMENT ASSISTANT COMPREHENSIVE METABOLIC PANEL AM Draw 10/03/2024 6:06 AM LEGAL DOCUMENT ASSISTANT MAGNESIUM BLOOD AM Draw 10/03/2024 2:59 AM LEGAL DOCUMENT ASSISTANT CBC W/O DIFFERENTIAL AM Draw 10/03/2024 2:59 AM LEGAL DOCUMENT ASSISTANT URINE DRUG SCREEN IMMUNOASSAY Routine 10/03/2024 12:08 AM LEGAL DOCUMENT ASSISTANT TROPONIN-I HIGH SENSITIVE REFLEX 1HOUR Timed 10/02/2024 12:31 PM LEGAL DOCUMENT ASSISTANT TROPONIN-I HIGH SENSITIVE BASELINE + 1HR STAT 10/02/2024 8:23 AM LEGAL DOCUMENT ASSISTANT LEVETIRACETAM LEVEL STAT 10/02/2024 6 :00 AM LEGAL DOCUMENT ASSISTANT LIPASE BLOOD Add on 10/02/2024 5:04 AM LEGAL DOCUMENT ASSISTANT MAGNESIUM BLOOD STAT 10/02/2024 5:04 AM LEGAL DOCUMENT ASSISTANT COMPREHENSIVE METABOLIC PANEL STAT 10/02/2024 5:04 AM LEGAL DOCUMENT ASSISTANT CBC W AUTO DIFFERENTIAL STAT 10/02/19 25 5:03 AM LEGAL DOCUMENT ASSISTANT ED CRITICAL CARE Routine 10/02/2024 4:48 AM LEGAL DOCUMENT ASSISTANT from Last 3 Months Results * CARDIAC RHYTHM STRIP ORDER (11/25/2024 5:00 PM LEGAL DOCUMENT ASSISTANT) Only the most recent of2 resultswithin the time period is included. Narrative 11/25/2024 5:00 PM LEGAL DOCUMENT ASSISTANT Ordered by an unspecified provider. Scanned Document CARDIAC SERVICES ORD ERABLES * (ABNORMAL) RENAL FUNCTION PANEL (11/23/2024 4:44 AM LEGAL DOCUMENT ASSISTANT) [facility] Glucose 86 70 - 99 mg/dL 11/23/2024 5:42 AM LEGAL DOCUMENT ASSISTANT [facility] Sodium 138 136 - 145 mmol/L 11/23/2024 5:42 AM [facility] Potassium 3.6 3.5 - 5.1 mmol/L 11/23/2024 5:42 AM [facility] Chloride 108(H) 98 - 107 mmol/L 11/23/2024 5:42 AM [facility] CO2 22 22 - 29 mmol/L 11/23/2024 5:42 AM [facility] Calcium 8.6 8.4 - 10.4 mg/dL 11/23/2024 5:42 AM [facility] Anion Gap 8 6 - 16 mmol/L 11/23/2024 5:42 AM [facility] BUN 6 5.3 - 18.7 mg/dL 11/23/2024 5:42 AM [facility] Creatinine 0.74 0.72 - 1.25 mg/dL 11/23/2024 5:42 AM [facility] Albumin 3.4 3.4 - 5.0 gm/dL 11/23/2024 5:42 AM [facility] Phosphorus 3.4 2.5 - 4.5 mg/dL 11/23/2024 5:42 AM [facility] eGFR by CKD-EPI >90 >=90 mL/min/1.7 3 m2 11/23/2024 5:42 AM [facility] Blood BLOOD SPECIMEN / Unknown Lab Venipuncture / Unknown 11/23/2024 4:44 AM LEGAL DOCUMENT ASSISTANT 11/23/2024 5:09 AM [facility] Reynaldo Almazan MD LAB - CHEMISTRY [facility]EL [facility] Organization Address City/State/ZIP Co de Phone Number [facility] [address] [place] [address] * LACTIC ACID BLOOD (11/23/2024 4:44 AM [facility]) Only the most recent of5 resultswithin the time period is included. Lactic Acid 0.925 <=2 mmol/L 11/23/2024 5:37 AM [facility] Blood BLOOD SPECIMEN / Unknown Lab Venipuncture / Unknown 11/23/2024 4:44 AM LEGAL DOCUMENT ASSISTANT 11/23/2024 5:08 AM LEGAL DOCUMENT ASSISTANT Reynaldo Almazan MD LAB - CHEMISTRY MANUEL ORTA Performing Organization Address City/[facility]/ZIP Co de Phone Number [facility] [address] [place] [address] * EKG 12-LEAD (11/22/2024 1:57 PM LEGAL DOCUMENT ASSISTANT) Ventricular Rate 79 BPM [facility] MUSE Atrial Rate 79 BPM [facility] MUSE P-R Interval 150 ms [facility] QRS Duration ms 86 ms [facility] Q-T Interval ms 370 ms [facility] MUSE QTC Calculation (Bezet) 424 ms [facility] MUSE Calculated P [place] 56 degrees [facility] MUSE Calculated R [place] 35 degrees [facility] MUSE Calculated T [place] 24 degrees [facility] MUSE Interpretation EKG NORMAL SINUS RHYTHM WITH SINUS ARRHYTHMIA NORMAL ECG Confirmed by DO COBURN STEPHANIE ([id number]) on 11/22/2024 6:29:46 PM [facility] MUSE 11/22/2024 1:57 PM LEGAL DOCUMENT ASSISTANT 11/22/2024 6:29 PM LEGAL DOCUMENT ASSISTANT Reynaldo Almazan MD ECG ORDERABLES Performing Organization Address City/[facility] Co de Phone Number [facility] MUSE * (ABNORMAL) VITAMIN D 25-HYDROXY (11/22/2024 2:48 AM LEGAL DOCUMENT ASSISTANT) Vitamin D, 25 Hydroxy 22.2(L) 30 - 80 ng/mL 11/22/2024 10:39 AM LEGAL DOCUMENT ASSISTANT [facility] Blood BLOOD SPECIMEN / Unknown Lab Venipuncture / Unknown 11/22/2024 2:48 AM LEGAL DOCUMENT ASSISTANT 11/22/2024 3:40 AM LEGAL DOCUMENT ASSISTANT Narrative [facility] - 11/22/2024 10:39 AM LEGAL DOCUMENT ASSISTANT Vitamin D Status: Deficiency <20 ng/mL Insufficiency 20-30 ng/mL Sufficiency 30-100 ng/mL Toxicity >100 ng/mL Reynaldo Almazan MD LAB - CHEMISTRY MANUEL ORTA Performing Organization Address City/[facility]/ZIP Co de Phone Number [facility] [address] [place] [address] * COMPREHENSIVE METABOLIC PANEL (11/22/2024 2:48 AM [facility]) Only the most recent of5 resultswithin the time period is included. [facility] Glucose 90 70 - 99 mg/dL 11/22/2024 4:28 AM [facility] Sodium 136 136 - 145 mmol/L 11/22/2024 4:28 AM [facility] Potassium 3.8 3.5 - 5.1 mmol/L 11/22/2024 4:28 AM [facility] Chloride 102 98 - 107 mmol/L 11/22/2024 4:28 AM [facility] CO2 23 22 - 29 mmol/L 11/22/2024 4:28 AM [facility] Calcium 9.0 8.4 - 10.4 mg/dL 11/22/2024 4:28 AM [facility] Anion Gap 11 6 - 16 mmol/L 11/22/2024 4:28 AM [facility] BUN 6 5.3 - 18.7 mg/dL 11/22/2024 4:28 AM [facility] Creatinine 0.80 0.72 - 1.25 mg/dL 11/22/2024 4:28 AM [facility] Alkaline Phosphatase 53 40 - 150 U/L 11/22/2024 4:28 AM [facility] ALT 32 0 - 55 U/L 11/22/2024 4:28 AM [facility] AST 28 5 - 34 U/L 11/22/2024 4:28 AM [facility] Protein Total 7.2 6.4 - 8.3 gm/dL 11/22/2024 4:28 AM [facility] Albumin 3.8 3.4 - 5.0 gm/dL 11/22/2024 4:28 AM [facility] Bilirubin Total 1.2 0.2 - 1.2 mg/dL 11/22/2024 4:28 AM [facility] eGFR by CKD-EPI >90 >=90 mL/min/1.7 3 m2 11/22/2024 4:28 AM [facility] Blood BLOOD SPECIMEN / Unknown Lab Venipuncture / Unknown 11/22/2024 2:48 AM LEGAL DOCUMENT ASSISTANT 11/22/2024 3:40 AM LEGAL DOCUMENT ASSISTANT Reynaldo Almazan MD LAB - CHEMISTRY MANUEL Garcia Organization Address City/State/ZIP Co de Phone Number [facility] [address] [place] [address] * (ABNORMAL) URINALYSIS REFLEX TO MICROSCOPIC NO CULTURE (11/21/2024 1:53 PM LEGAL DOCUMENT ASSISTANT) Only the most recent of2 resultswithin the time period is included. Color UA Yellow Yellow, Straw 11/21/2024 2:17 PM [facility] Clarity UA Clear Clear 11/21/2024 2:17 PM [facility] Glucose UA Normal Normal 11/21/2024 2:17 PM [facility] Bilirubin UA Negative Negative 11/21/2024 2:17 PM [facility] Ketone UA 1+(A) Negative 11/21/2024 2:17 PM [facility] Specific [place] UA 1.018 1.005 - 1.030 11/21/2024 2:17 PM [facility] Blood UA Negative Negative 11/21/2024 2:17 PM [facility] pH UA 6.5 5.0 - 9.0 pH 11/21/2024 2:17 PM [facility] Protein UA 2+(A) Negative 11/21/2024 2:17 PM [facility] Urobilinogen UA Normal Normal mg/dL 025 2:17 PM [facility] Nitrite UA Negative Negative 11/21/2024 2:17 PM [facility] Leukocyte UA Negative Negative 11/21/2024 2:17 PM [facility] RBC UA 3-5 0 - 5 # /hpf 11/21/2024 2:17 PM [facility] WBC UA 0-5 0 - 5 # /hpf 11/21/2024 2:17 PM [facility] Bacteria UA None Seen None Seen 11/21/2024 2:17 PM [facility] Squamous Epithelial Cells None Seen 0 - 5 /hpf 11/21/2024 2:17 PM [facility] Urine URINE SPECIMEN OBTAINED BY CLEAN CATCH PROCEDURE / Unknown Collection / Unknown 11/21/2024 1:53 PM LEGAL DOCUMENT ASSISTANT 11/21/2024 2:10 PM LEGAL DOCUMENT ASSISTANT Narrative [facility] - 11/21/2024 2:17 PM LEGAL DOCUMENT ASSISTANT Gagandeep Bone DO LAB - URINALYSIS ORD ERABLES [facility] [address] [place] [address] * (ABNORMAL) URINE DRUG SCREEN IMMUNOASSAY (11/21/2024 1:53 PM LEGAL DOCUMENT ASSISTANT) Only the most recent of2 resultswithin the time period is included. [facility] Amphetamines Screen Urine Not detected Not detected 11/21/2024 3:14 PM [facility] Barbiturates Screen Urine Detected(A) Not detected 11/21/2024 3:14 PM [facility] Benzodiazepines Screen Urine Detected(A) Not detected 11/21/2024 3:14 PM [facility] Cannabinoids Screen Urine Detected(A) Not detected 11/21/2024 3:14 PM [facility] Cocaine Screen Urine Not detected Not detected 11/21/2024 3:14 PM [facility] Fentanyl Urine Not detected Not detected 11/21/2024 3:14 PM [facility] Methadone Screen Urine Not detected Not detected 11/21/2024 3:14 PM [facility] Opiate Screen Urine Not detected Not detected 11/21/2024 3:14 PM [facility] Phencyclidine Screen Urine Not detected Not detected 11/21/2024 3:14 PM [facility] Urine URINE / Unknown Collection / Unknown 11/21/2024 1:53 PM LEGAL DOCUMENT ASSISTANT 11/21/2024 2:10 PM LEGAL DOCUMENT ASSISTANT Narrative [facility] - 11/21/2024 3:14 PM LEGAL DOCUMENT ASSISTANT This drug screen is designed for MEDICAL [...] URINE CHEMISTR Y ORDERABLES Performing Organization Address [facility] Co de Phone Number [facility] [address] [place] [address] * SARS-COV-2 (COVID-19) FLU A/B RSV PCR RAPID (11/21/2024 11:29 AM LEGAL DOCUMENT ASSISTANT) Pathologist [facility] [place] COVID-19 PCR Not detected Not detected 11/21/19 12:07 PM LEGAL DOCUMENT ASSISTANT [facility] Influenza A PCR Not detected Not detected 11/21/2024 12:07 PM LEGAL DOCUMENT ASSISTANT [facility] Influenza B PCR Not detected Not detected 11/21/2024 12:07 PM [facility] RSV PCR Not detected Not detected 11/21/2024 12:07 PM LEGAL DOCUMENT ASSISTANT [facility] Microbiology SPECIMEN FROM NASOPHARYNGEAL STRUCTURE / Unknown Collection / Unknown 11/21/2024 11:29 AM LEGAL DOCUMENT ASSISTANT 11/21/2024 11:29 AM LEGAL DOCUMENT ASSISTANT Narrative [facility] - 11/21/2024 12:07 PM LEGAL DOCUMENT ASSISTANT This nucleic acid amplification assay has been [...] this EUA assay are available upon request. Gagandepe Bone DO LAB - MICROBIOLOGY O RDERABLES Performing Organization Address City/[facility]/ZIP Co de Phone Number [facility] [address] [place], [place] [id number] * LEVETIRACETAM LEVEL (11/21/2024 11:29 AM LEGAL DOCUMENT ASSISTANT) Only the most recent of2 resultswithin the time period is included. Pathologist [facility] [place] Levetiracetam 24.63 10 - 40 ug/mL 11/21/2024 11:55 AM LEGAL DOCUMENT ASSISTANT [facility] Blood BLOOD SPECIMEN / Unknown Venipuncture / Unknown 11/21/2024 11:29 AM LEGAL DOCUMENT ASSISTANT 11/21/2024 11:29 AM LEGAL DOCUMENT ASSISTANT Theresa Espinoza [employer]OCI[employer]-PSYCH ARNP LAB - THERAP EUTIC DRUG MONITORING ORDERABLES Performing Organization Address [facility]/ZIP Co de Phone Number [facility] [address] [place] [address] * HYDROXYBUTYRATE BETA (11/21/2024 11:29 AM LEGAL DOCUMENT ASSISTANT) Beta-Hydroxybu tyrate <0.50 <0.50 mmol/L 11/21/2024 11:45 AM [facility] Blood BLOOD SPECIMEN / Unknown Venipuncture / Unknown 11/21/2024 11:29 AM LEGAL DOCUMENT ASSISTANT 11/21/2024 11:29 AM LEGAL DOCUMENT ASSISTANT Narrative [facility] - 11/21/2024 11:45 AM LEGAL DOCUMENT ASSISTANT Results >1.5 mmol/L may be indicative of diabetic ketoacidosis. Use in conjunction with Serum Glucose levels. Aleta Vieira MD LAB - CHEMISTRY MANUEL ORTA Performing Organization Address [facility] Co de Phone Number [facility] [address] [place] [phone] * (ABNORMAL) BASIC METABOLIC PANEL (CALCIUM TOTAL) (11/21/2024 11:29 AM LEGAL DOCUMENT ASSISTANT) Glucose 113(H) 70 - 99 mg/dL 11/21/2024 11:45 AM [facility] Sodium 137 136 - 145 mmol/L 11/21/2024 11:45 AM [facility] Potassium 3.7 3.5 - 5.1 mmol/L 11/21/2024 11:45 AM [facility] Chloride 102 98 - 107 mmol/L 11/21/2024 11:45 AM [facility] CO2 18(L) 22 - 29 mmol/L 11/21/2024 11:45 AM [facility] Calcium 9.3 8.4 - 10.4 mg/dL 11/21/2024 11:45 AM [facility] Anion Gap 17(H) 6 - 16 mmol/L 11/21/2024 11:45 AM [facility] BUN 10 5.3 - 18.7 mg/dL 11/21/2024 11:45 AM [facility] Creatinine 0.93 0.72 - 1.25 mg/dL 11/21/2024 11:45 AM [facility] eGFR by CKD-EPI >90 >=90 mL/min/1.7 3 m2 11/21/2024 11:45 AM [facility] Blood BLOOD SPECIMEN / Unknown Venipuncture / Unknown 11/21/2024 11:29 AM LEGAL DOCUMENT ASSISTANT 11/21/2024 11:29 AM LEGAL DOCUMENT ASSISTANT Theresa Espinoza [employer] ASSOCIATE-PSYCH ARNP LAB - CHEMIS TRY ORDERABLES Performing Organization Address [facility] Co de Phone Number [facility] [address] [place] [phone] * PHOSPHORUS BLOOD (11/21/2024 11:29 AM LEGAL DOCUMENT ASSISTANT) Only the most recent of2 resultswithin the time period is included. Phosphorus 3.7 2.5 - 4.5 mg/dL 11/21/2024 11:48 AM [facility] Blood BLOOD SPECIMEN / Unknown Venipuncture / Unknown 11/21/2024 11:29 AM LEGAL DOCUMENT ASSISTANT 11/21/2024 11:29 AM LEGAL DOCUMENT ASSISTANT Theresa Espinoza [employer] HOME ASSOCIATE-PSYCH ARNP LAB - CHEMIS TRY ORDERABLES Performing Organization Address City/[facility]/ZIP Co de Phone Number [facility] [address] [place] [phone] * XR Chest 1Vw Portable (11/21/2024 10:38 AM LEGAL DOCUMENT ASSISTANT) Anatomical Region Laterality Modality Chest Radiographic Ashley ging 11/21/2024 10:4 2 AM LEGAL DOCUMENT ASSISTANT Narrative 11/21/2024 10:42 AM LEGAL DOCUMENT ASSISTANT PROCEDURE: XR CHEST 1VW PORTABLE DATE/TIME OF [...] * SLIDE SCAN HEMATOLOGY (11/21/2024 8:50 AM LEGAL DOCUMENT ASSISTANT) Pathologist [facility] [place] RBC Morphology NORMAL 11/21/2024 10:15 AM LEGAL DOCUMENT ASSISTANT [facility] Blood BLOOD SPECIMEN / Unknown Venipuncture / Unknown 11/21/2024 8:50 AM LEGAL DOCUMENT ASSISTANT 11/21/2024 8:51 AM LEGAL DOCUMENT ASSISTANT Gagandeep Bone DO LAB - HEMATOLOGY ORD ERABLES Performing Organization Address City/State/[facility] Co de Phone Number [facility] [address] [place] [address] * (ABNORMAL) CBC W AUTO DIFFERENTIAL (11/21/2024 8:50 AM LEGAL DOCUMENT ASSISTANT) Only the most recent of3 resultswithin the time period is included. Pathologist [facility] [place] WBC 10.1 4.0 - 10.7 x10E9/L 11/21/2024 10:15 AM LEGAL DOCUMENT ASSISTANT [facility] RBC Count 5.62 4.30 - 5.80 x10E12/L 11/21/2024 10:15 AM LEGAL DOCUMENT ASSISTANT [facility] Hemoglobin 17.4 13.3 - 17.5 g/dL 11/21/2024 10:15 AM [facility] Hematocrit 47.1 38.7 - 51.1 % 11/21/2024 10:15 AM [facility] MCV 83.8 80.0 - 98.0 fL 11/21/2024 10:15 AM [facility] MCH 31.0 26.7 - 33.6 pg 11/21/2024 10:15 AM [facility] MCHC 36.9(H) 31.7 - 36.3 g/dL 11/21/2024 10:15 AM [facility] RDW-CV 12.2 11.3 - 14.8 % 11/21/2024 10:15 AM [facility] Platelet Count 311 150 - 420 x10E9/L 11/21/2024 10:15 AM [facility] MPV 9.8 7.8 - 11.4 fL 11/21/2024 10:15 AM [facility] Neutrophil % 71.9 41.0 - 74.0 % 11/21/2024 10:15 AM [facility] Lymphocyte % 23.5 17.0 - 47.0 % 11/21/2024 10:15 AM [facility] Monocyte % 3.5 3.0 - 11.0 % 11/21/2024 10:15 AM [facility] Eosinophil % 0.2 0.0 - 7.0 % 11/21/2024 10:15 AM [facility] Basophil % 0.6 0.0 - 1.6 % 11/21/2024 10:15 AM [facility] Immature Granulocytes % 0.3 0.0 - 1.0 % 11/21/2024 10:15 AM [facility] Neutrophil Absolute 7.24 1.60 - 7.50 x10E9/L 11/21/2024 10:15 AM [facility] Lymphocyte Absolute 2.37 1.00 - 4.40 x10E9/L 11/21/2024 10:15 AM [facility] Monocyte Absolute 0.35 0.15 - 1.00 x10E9/L 11/21/2024 10:15 AM [facility] Eosinophil Absolute 0.02 0.00 - 0.60 x10E9/L 11/21/2024 10:15 AM LEGAL DOCUMENT ASSISTANT [facility] Basophil Absolute 0.06 0.00 - 0.13 x10E9/L 11/21/2024 10:15 AM LEGAL DOCUMENT ASSISTANT [facility] Blood BLOOD SPECIMEN / Unknown Venipuncture / Unknown 11/21/2024 8:50 AM LEGAL DOCUMENT ASSISTANT 11/21/2024 8:51 AM LEGAL DOCUMENT ASSISTANT Gagandeep Lizzie Smitha DO LAB - HEMATOLOGY ORD ERABLES Performing Organization Address [facility]/ZIP Co de Phone Number [facility] [address] [place] [address] [phone] * MAGNESIUM BLOOD (11/21/2024 8:50 AM LEGAL DOCUMENT ASSISTANT) Only the most recent of3 resultswithin the time period is included. Magnesium 1.8 1.6 - 2.6 mg/dL 11/21/2024 9:18 AM LEGAL DOCUMENT ASSISTANT [facility] Blood BLOOD SPECIMEN / Unknown Venipuncture / Unknown 11/21/2024 8:50 AM LEGAL DOCUMENT ASSISTANT 11/21/2024 8:51 AM LEGAL DOCUMENT ASSISTANT Gagandeep Bone DO LAB - CHEMISTRY ORDE RABLUIS A Performing Organization Address [facility] de Phone Number [facility] [address] [place], [place] [phone] * LIPASE BLOOD (11/21/2024 8:50 AM LEGAL DOCUMENT ASSISTANT) Only the most recent of2 resultswithin the time period is included. Lipase 25 <60 U/L 11/21/2024 9:12 AM LEGAL DOCUMENT ASSISTANT [facility] Blood BLOOD SPECIMEN / Unknown Venipuncture / Unknown 11/21/2024 8:50 AM LEGAL DOCUMENT ASSISTANT 11/21/2024 8:51 AM LEGAL DOCUMENT ASSISTANT Gagandeep Bone DO LAB - CHEMISTRY ORDE RABLUIS A Performing Organization Address [facility] Co de Phone Number [facility] [address] [place] [address] [phone] * (ABNORMAL) ALCOHOL ETHYL BLOOD (11/21/2024 8:50 AM LEGAL DOCUMENT ASSISTANT) Ethanol 77.0(H) <10 mg/dL 11/21/2024 9:18 AM [facility] Ethanol Calculated 0.077 <=0.100 gm/dL 11/21/2024 9:18 AM [facility] Blood BLOOD SPECIMEN / Unknown Venipuncture / Unknown 11/21/2024 8:50 AM LEGAL DOCUMENT ASSISTANT 11/21/2024 8:51 AM LEGAL DOCUMENT ASSISTANT Narrative [facility] - 11/21/2024 9:18 AM [facility] Ethanol Interp <10: None Detected Depression of [...] - CHEMISTRY MANUEL ORTA Performing Organization Address City/[facility]/ZIP Co de Phone Number [facility] [address] [place], [place] [phone] * GLUCOSE - POINT OF CARE (10/04/2024 12:57 PM LEGAL DOCUMENT ASSISTANT) [facility] Glucose WB/POC 83 70 - 99 mg/dL 10/04/2024 1:06 PM [facility] Specimen Type Cap Fingerstick 2024 1:06 PM [facility] Blood BLOOD SPECIMEN / Unknown 10/04/2024 12:57 PM LEGAL DOCUMENT ASSISTANT 10/04/2024 1:06 PM LEGAL DOCUMENT ASSISTANT Vargas Boothe MD LAB - POINT OF CARE ORDERABLES Performing Organization Address City/[facility]/ZIP Co de Phone Number [facility] [address] [place] [phone] * (ABNORMAL) CBC W/O DIFFERENTIAL (10/03/2024 2:59 AM LEGAL DOCUMENT ASSISTANT) [facility] WBC 4.0 4.0 - 10.7 x10E9/L 10/03/2024 4:02 AM [facility] RBC Count 3.27(L) 4.30 - 5.80 x10E12/L 10/03/2024 4:02 AM [facility] Hemoglobin 10.6(L) 13.3 - 17.5 g/dL 10/03/2024 4:02 AM [facility] Hematocrit 29.9(L) 38.7 - 51.1 % 10/03/2024 4:02 AM [facility] MCV 91.4 80.0 - 98.0 fL 10/03/2024 4:02 AM [facility] MCH 32.4 26.7 - 33.6 pg 10/03/2024 4:02 AM [facility] MCHC 35.5 31.7 - 36.3 g/dL 10/03/2024 4:02 AM [facility] RDW-CV 12.7 11.3 - 14.8 % 10/03/2024 4:02 AM [facility] Platelet Count 93(L) 150 - 420 x10E9/L 10/03/2024 4:02 AM [facility] MPV 10.5 7.8 - 11.4 fL 10/03/2024 4:02 AM [facility] NRBC 1.0(H) <=0.0 /100 WBC 10/03/2024 4:02 AM [facility] Blood BLOOD SPECIMEN / Unknown Venipuncture / Unknown 10/03/2024 2:59 AM LEGAL DOCUMENT ASSISTANT 10/03/2024 3:40 AM [facility] Aleta Vieira MD LAB - HEMATOLOGY ORD ERABLES Performing Organization Address City/State/[facility] Co de Phone Number [facility] [address] [place], [place] [phone] * TROPONIN-I HIGH SENSITIVE REFLEX 1HOUR (10/02/2024 12:31 PM LEGAL DOCUMENT ASSISTANT) Pathologist [facility] [place] Troponin I High Sensitive <3 <=35 ng/L 10/02/2024 1:12 PM [facility] Delta Troponin I HS 10/02/2024 1:12 PM [facility] Comment:Delta value intentio jem not calculated. Baseline to 1 hour specimen collection interval exceeded. Blood BLOOD SPECIMEN / Unknown Venipuncture / Unknown 10/02/2024 12:31 PM LEGAL DOCUMENT ASSISTANT 10/02/2024 12:42 PM LEGAL DOCUMENT ASSISTANT Orlando Bowers MD LAB - CHEMISTRY ORDLori KHANLUIS A [facility] [address] [place] [phone] * TROPONIN-I HIGH SENSITIVE BASELINE + 1HR (10/02/2024 8:23 AM LEGAL DOCUMENT ASSISTANT) Troponin I High Sensitive <3 <=35 ng/L 10/02/2024 8:55 AM LEGAL DOCUMENT ASSISTANT [facility] Blood BLOOD SPECIMEN / Unknown Venipuncture / Unknown 10/02/2024 8:23 AM LEGAL DOCUMENT ASSISTANT 10/02/2024 8:28 AM LEGAL DOCUMENT ASSISTANT Juvencio Virk MD LAB - CHEMISTRY MANUEL ERINLUIS A Performing Organization Address City/[facility] Co de Phone Number [facility] [address] [place] [phone] * Critical Care (10/02/2024 4:48 AM LEGAL DOCUMENT ASSISTANT) Narrative Wei Fan DO - 10/02/2024 4:48 AM LEGAL DOCUMENT ASSISTANT Wei Fan DO 10/02/2024 6:49 AM Critical [...] Effective Dates Phone Address Type TPL THIRD CONSTITUTION PARTY LIABILITY TPL THIRD CONSTITUTION [employer]Y LIABILITY [id number] Effective for all dates Third Libertarian Liability ANTHEM BLUE CROSS [employer]ADITIONAL [id number] 11/28/2016-Pres ent [address] [place] [address] PPO ANTHEM BLUE CROSS [employer]ADITIONAL [id number] 11/28/2016-Pres ent [address] [place] [address] PPO ANTHEM BL[employer] CROSS TRADITIONAL [id number] 11/28/2016-Pres ent [address] [place] [address] PPO ANTHEM BLUE CROSS TRADITIONAL [id number] 11/28/2016-Pres ent [address] [place] [address] PPO ANTHEM BLUE CROSS TRADITIONAL [id number] 11/28/2016-Pres ent [address] [place] [address] PPO ANTHEM BLUE CROSS TRADITIONAL [id number] 11/28/2016-Pres ent [address] [place] [address] PPO ANTHEM BL[employer] CROSS TRADITIONAL [id number] 11/28/2016-Pres ent [address] [place] [address] PPO ANTHEM BL[employer] CROSS TRADITIONAL [id number] 11/28/2016-Pres ent [address] [place] [address] PPO ANTHEM BL[employer] CROSS TRADITIONAL [id number] 11/28/2016-Pres ent [address] [place] [address] PPO ANTHEM BLUE CROSS TRADITIONAL [id number] 11/28/2016-Pres ent [address] [place] [address] PPO ANTHEM BLUE CROSS TRADITIONAL [id number] 11/28/2016-Pres ent [address] [place] [address] PPO ANTHEM BL[employer] CROSS TRADITIONAL [id number] 11/28/2016-Pres ent [address] [place] [address] PPO ANTHEM BL[employer] CROSS TRADITIONAL [id number] 11/28/2016-Pres ent [address] [place] [address] PPO ANTHEM BLUE CROSS TRADITIONAL [id number] 11/28/2016-Pres ent [address] [place] [address] PPO ANTHEM BL[employer] CROSS TRADITIONAL [id number] 11/28/2016-Pres ent [address] [place] [address] PPO ANTHEM BLUE CROSS TRADITIONAL [id number] 11/28/2016-Pres ent [address] [place] [address] PPO ANTHEM BLUE CROSS TRADITIONAL [id number] 11/28/2016-Pres ent [address] [place] [address] PPO ANTHEM BLUE CROSS TRADITIONAL [id number] 11/28/2016-Pres ent [address] [place] [address] PPO ANTHEM BLUE CROSS TRADITIONAL [id number] 11/28/2016-Pres ent [address] [place] [address] PPO ANTHEM BLUE CROSS TRADITIONAL [id number] 11/28/2016-Pres ent [address] [place] [address] PPO ANTHEM BLUE CROSS TRADITIONAL [id number] 11/28/2016-Pres ent [address] [place] [address] PPO ANTHEM BLUE CROSS TRADITIONAL [id number] 11/28/2016-Pres ent [address] [place] [address] PPO ANTHEM BLUE CROSS TRADITIONAL [id number] 11/28/2016-Pres ent [address] [place] [address] PPO ANTHEM BL[employer] CROSS TRADITIONAL [id number] 11/28/2016-Pres ent [address] [place] [address] PPO ANTHEM BLUE CROSS TRADITIONAL [id number] 11/28/2016-Pres ent [address] [place] [address] PPO ANTHEM BLUE CROSS TRADITIONAL [id number] 11/28/2016-Pres ent [address] [place] [address] PPO ANTHEM BLUE CROSS TRADITIONAL [id number] 11/28/2016-Pres ent [address] [place] [address] PPO ANTHEM BLUE CROSS TRADITIONAL [id number] 11/28/2016-Pres ent [address] [place] [address] PPO ANTHEM BLUE CROSS TRADITIONAL [id number] 11/28/2016-Pres ent [address] [place] [address] PPO ANTHEM BLUE CROSS TRADITIONAL [id number] 11/28/2016-Pres ent [address] [place] [address] PPO ANTHEM BLUE CROSS TRADITIONAL [id number] 11/28/2016-Pres ent [address] [place] [address] PPO ANTHEM BLUE CROSS TRADITIONAL [id number] 11/28/2016-Pres ent [address] [place] [address] PPO ANTHEM BLUE CROSS TRADITIONAL [id number] 11/28/2016-Pres ent [address] [place] [address] PPO ANTHEM BLUE CROSS TRADITIONAL [id number] 11/28/2016-Pres ent [address] [place] [address] PPO ANTHEM BLUE CROSS TRADITIONAL [id number] 11/28/2016-Pres ent [address] [place] [address] PPO ANTHEM BLUE CROSS TRADITIONAL [id number] 11/28/2016-Pres ent [address] [place] [address] PPO AETNA AETNA PPO/POS/OA [id number] 01/03/2024-Pre sent [address] [place] [id number] PPO Advance Directives * Full Code (Latest [...] 12:44 AM 06/21/2021 7:37 PM Care Teams 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
--- OUTSIDE RECORDS SUMMARY | 2024-11-28 03:06 | XMS_ITS | Referral Summary ---
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 Comment: Interpretive Data Percent cell count reference ranges are not reported, since discordance with absolute values may lead to misinterpretation of CBC data. Current Interpretive Data was last revised on 2018. Imm gran pct 0.6 % [facility] Comment: Interpretive Data Percent cell count reference ranges are not reported, since discordance with absolute values may lead to misinterpretation of CBC data. Current Interpretive Data was last revised on 2018. Lymphocyte pct 29.1 % [facility] Comment: Interpretive Data Percent cell count reference ranges are not reported, since discordance with absolute values may lead to misinterpretation of CBC data. Current Interpretive Data was last revised on 2018. Monocyte pct 4.7 % [facility] Comment: Interpretive Data Percent cell count reference ranges are not reported, since discordance with absolute values may lead to misinterpretation of CBC data. Current Interpretive Data was last revised on 2018. Eosinophil pct 2.5 % [facility] Comment: Interpretive Data Percent cell count reference ranges are not reported, since discordance with absolute values may lead to misinterpretation of CBC data. Current Interpretive Data was last revised on 2018. Basophil pct 0.5 % [facility] Comment: Interpretive Data Percent cell count reference ranges are not reported, since discordance with absolute values may lead to misinterpretation of CBC data. Current Interpretive Data was last revised on 2018. Blood 09/14/2024 4:59 AM MASS SPECTROSCOPIST 09/14/2024 5:35 AM MASS SPECTROSCOPIST Chaz Nicole MD LAB BLOOD ORDERABL ES Final Result LALITO MURILLO [address] [facility] Department [place] [address] * (ABNORMAL) CBC with auto differential (09/14/2024 4:59 AM MASS SPECTROSCOPIST) WBC 6.5 3.8 - 9.9 K/cumm Hgb 12.1(L) 13.0 - 17.5 g/dL [facility] Hct 34.4(L) 38.9 - 50.3 % [facility] Plt 121(L) 150 - 400 K/cumm [facility] MPV 10.0 9.1 - 12.3 fL [facility] RBC 3.77(L) 4.30 - 5.80 M/cumm [facility] MCV 91.2 81.3 - 96.4 fL [facility] MCH 32.1 27.1 - 33.3 pg [facility] MCHC 35.2 32.3 - 35.7 g/dL [facility] RDW CV 13.2 11.1 - 14.9 % [facility] RDW SD 43.0 35.7 - 48.1 fL [facility] NRBC abs 0.03(H) 0.00 - 0.01 K/cumm [facility] Blood 09/14/2024 4:59 AM MASS SPECTROSCOPIST 09/14/2024 5:35 AM MASS SPECTROSCOPIST Chaz Nicole MD LAB BLOOD ORDERABL ES Final Result Performing Organization Address City/[facility] Co de Phone Number [address] [place] [address] * (ABNORMAL) Phosphorus (09/14/2024 4:59 AM MASS SPECTROSCOPIST) [facility] Phosphorus, pl 2.1(L) 2.3 - 4.5 mg/dL Blood 09/14/2024 4:59 AM MASS SPECTROSCOPIST 09/14/2024 5:35 AM MASS SPECTROSCOPIST Chaz Nicole MD LAB BLOOD ORDERABL ES Final Result Performing Organization Address City/[facility]/ZIP Co de Phone Number [address] [place] [address] * Magnesium (09/14/2024 4:59 AM MASS SPECTROSCOPIST) [facility] Magnesium 1.6 1.4 - 2.5 mg/dL Blood 09/14/2024 4:59 AM MASS SPECTROSCOPIST 09/14/2024 5:35 AM MASS SPECTROSCOPIST Chaz Nicole MD LAB BLOOD ORDERABL ES Final Result [facility] [address] [facility] Department [place] [address] * (ABNORMAL) Comprehensive metabolic panel (09/14/2024 4:59 AM MASS SPECTROSCOPIST) Sodium 135 135 - 145 mmol/L Potassium, pl 3.5 3.3 - 4.9 mmol/L [facility] Comment:Hemolyzed; Potassium value may be falsely elevated by as much as 1.0 mmol/L. Suggest redraw and reanalysis. Chloride 103 97 - 110 mmol/L [facility] CO2 22 22 - 32 mmol/L [facility] Anion gap 10 2 - 15 mmol/L [facility] BUN 5(L) 6 - 25 mg/dL [facility] Creatinine 0.94 0.80 - 1.30 mg/dL [facility] Glucose 123 70 - 199 mg/dL [facility] Comment: Interpretive Data Fasting glucose >/= 126 [...] 2022. Calcium 9.1 8.5 - 10.3 mg/dL [facility] Bilirubin, total 0.3 0.1 - 1.2 mg/dL [facility] Protein, pl 6.3(L) 6.5 - 8.5 g/dL [facility] Albumin 3.8 3.5 - 5.0 g/dL [facility] Alk phos 69 40 - 130 Units/L [facility] ALT 64(H) 7 - 55 Units/L [facility] AST 100(H) 10 - 50 Units/L [facility] Comment:Hemolyzed; result ma y be falsely elevated Blood 09/14/2024 4:59 AM MASS SPECTROSCOPIST 09/14/2024 5:35 AM MASS SPECTROSCOPIST Chaz Nicole MD LAB BLOOD ORDERABL ES Final Result Performing Organization Address City/[facility] Co de Phone Number [address] [place] [address] * eGFR (09/13/2024 3:42 AM MASS SPECTROSCOPIST) Pathologist [facility] eGFR >90 >=60 mL/min/1. 73 m2 Comment: [...] of Race in Diagnosing Kidney Disease, JASN 202). The CKD-EPI equation should not be used for patients with unstable renal function and has not been validated in children and those over 70. Current interpretive data was last reviewed 2021. Blood 09/13/2024 3:42 AM MASS SPECTROSCOPIST 09/13/2024 3:54 AM MASS SPECTROSCOPIST Chaz Nicole MD LAB BLOOD ORDERABL ES Final Result Performing Organization Address City/[facility] Co de Phone Number AIDA[address] Department [place] [address] * Differential, auto (09/13/2024 3:42 AM MASS SPECTROSCOPIST) Neutrophil abs 3.0 1.5 - 6.5 K/cumm Imm gran abs 0.0 0.0 - 0.1 K/cumm [facility] Lymphocyte abs 1.8 0.8 - 3.3 K/cumm [facility] Monocyte abs 0.3 0.2 - 0.8 K/cumm [facility] Eosinophil abs 0.1 0.0 - 0.5 K/cumm [facility] Basophil abs 0.0 0.0 - 0.1 K/cumm [facility] Neutrophil pct 57.4 % [facility] Comment: Interpretive Data Percent cell count reference ranges are not reported, since discordance with absolute values may lead to misinterpretation of CBC data. Current Interpretive Data was last revised on 2018. Imm gran pct 0.2 % [facility] Comment: Interpretive Data Percent cell count reference ranges are not reported, since discordance with absolute values may lead to misinterpretation of CBC data. Current Interpretive Data was last revised on 2018. Lymphocyte pct 34.4 % [facility] Comment: Interpretive Data Percent cell count reference ranges are not reported, since discordance with absolute values may lead to misinterpretation of CBC data. Current Interpretive Data was last revised on 2018. Monocyte pct 5.6 % [facility] Comment: Interpretive Data Percent cell count reference ranges are not reported, since discordance with absolute values may lead to misinterpretation of CBC data. Current Interpretive Data was last revised on 2018. Eosinophil pct 1.8 % [facility] Comment: Interpretive Data Percent cell count reference ranges are not reported, since discordance with absolute values may lead to misinterpretation of CBC data. Current Interpretive Data was last revised on 2018. Basophil pct 0.6 % [facility] Comment: Interpretive Data Percent cell count reference ranges are not reported, since discordance with absolute values may lead to misinterpretation of CBC data. Current Interpretive Data was last revised on 2018. Blood 09/13/2024 3:42 AM MASS SPECTROSCOPIST 09/13/2024 3:55 AM MASS SPECTROSCOPIST Chaz Nicole MD LAB BLOOD ORDERABL ES Final Result [address] [address] * (ABNORMAL) CBC with auto differential (09/13/2024 3:42 AM MASS SPECTROSCOPIST) [facility] WBC 5.1 3.8 - 9.9 K/cumm Hgb 12.6(L) 13.0 - 17.5 g/dL [facility] Hct 34.8(L) 38.9 - 50.3 % [facility] Plt 112(L) 150 - 400 K/cumm [facility] MPV 10.1 9.1 - 12.3 fL [facility] RBC 3.84(L) 4.30 - 5.80 M/cumm [facility] MCV 90.6 81.3 - 96.4 fL [facility] MCH 32.8 27.1 - 33.3 pg [facility] MCHC 36.2(H) 32.3 - 35.7 g/dL [facility] RDW CV 12.9 11.1 - 14.9 % [facility] RDW SD 42.3 35.7 - 48.1 fL [facility] NRBC abs 0.00 0.00 - 0.01 K/cumm [facility] Blood 09/13/2024 3:42 AM MASS SPECTROSCOPIST 09/13/2024 3:55 AM MASS SPECTROSCOPIST Chaz Nicole MD LAB BLOOD ORDERABL ES Final Result Performing Organization Address [facility] Co de Phone Number [address] [address] * Phosphorus (09/13/2024 3:42 AM MASS SPECTROSCOPIST) [facility] Phosphorus, pl 2.3 2.3 - 4.5 mg/dL Blood 09/13/2024 3:42 AM MASS SPECTROSCOPIST 09/13/2024 3:54 AM MASS SPECTROSCOPIST Chaz Nicole MD LAB BLOOD ORDERABL ES Final Result Performing Organization Address [facility] Co de Phone Number [address] [place] [address] * Magnesium (09/13/2024 3:42 AM MASS SPECTROSCOPIST) [facility] Magnesium 2.0 1.4 - 2.5 mg/dL Blood 09/13/2024 3:42 AM MASS SPECTROSCOPIST 09/13/2024 3:54 AM MASS SPECTROSCOPIST Chaz Nicole MD LAB BLOOD ORDERABL ES Final Result [address] [address] * (ABNORMAL) Comprehensive metabolic panel (09/13/2024 3:42 AM MASS SPECTROSCOPIST) [facility] Sodium 138 135 - 145 mmol/L Potassium, pl 3.6 3.3 - 4.9 mmol/L [facility] Chloride 104 97 - 110 mmol/L [facility] CO2 24 22 - 32 mmol/L [facility] Anion gap 10 2 - 15 mmol/L [facility] BUN 7 6 - 25 mg/dL [facility] Creatinine 0.82 0.80 - 1.30 mg/dL [facility] Glucose 106 70 - 199 mg/dL [facility] Comment: Interpretive Data Fasting glucose >/= 126 [...] 2022. Calcium 9.4 8.5 - 10.3 mg/dL [facility] Bilirubin, total 0.5 0.1 - 1.2 mg/dL [facility] Protein, pl 6.7 6.5 - 8.5 g/dL [facility] Albumin 3.9 3.5 - 5.0 g/dL [facility] Alk phos 69 40 - 130 Units/L [facility] ALT 43 7 - 55 Units/L [facility] AST 69(H) 10 - 50 Units/L [facility] Blood 09/13/2024 3:42 AM MASS SPECTROSCOPIST 09/13/2024 3:54 AM MASS SPECTROSCOPIST Chaz Nicole MD LAB BLOOD ORDERABL ES Final Result Performing Organization Address [facility] Co de Phone Number [address] [address] * Troponin T high-sensitivity 6-hour (09/12/2024 3:52 AM MASS SPECTROSCOPIST) Trop T hs 6 <=22 ng/L Comment: Interpretive Data For further hscTnT resources including the diagnostic algorithm and an aid in interpretation, copy and paste this link: [email or web address]/show/[email or web address] Current Interpretive Data last revised 2020. Trop T hs delta -1 ng/L [facility] Trop T hs interp Insignificant [facility] Blood 09/12/2024 3:52 AM MASS SPECTROSCOPIST 09/12/2024 4:50 AM MASS SPECTROSCOPIST Truong Maloney MD LAB BLOOD ORDERABLES Final Result Performing Organization Address [facility] Co de Phone Number [address] [address] * Troponin T high-sensitivity 4-hour (09/12/2024 2:22 AM MASS SPECTROSCOPIST) Trop T hs <6 <=22 ng/L Comment: Interpretive Data For further hscTnT resources including the diagnostic algorithm and an aid in interpretation, copy and paste this link: [email or web address]/show/[email or web address] Current Interpretive Data last revised 2020. Trop T hs delta -1 ng/L [facility] Trop T hs interp Insignificant [facility] Blood 09/12/2024 2:22 AM MASS SPECTROSCOPIST 09/12/2024 2:32 AM MASS SPECTROSCOPIST Truong Maloney MD LAB BLOOD ORDERABLES Final Result Performing Organization Address [facility] Co de Phone Number LALITO [address] [address] * eGFR (09/12/2024 2:22 AM MASS SPECTROSCOPIST) Pathologist [facility] eGFR >90 >=60 mL/min/1. 73 m2 Comment: [...] last reviewed 2021. Blood 09/12/2024 2:22 AM MASS SPECTROSCOPIST 09/12/2024 2:32 AM MASS SPECTROSCOPIST Truong Maloney MD LAB BLOOD ORDERABLES Final Result Performing Organization Address City/[facility] Co de Phone Number LALITO [address] [place] [address] * Differential, auto (09/12/2024 2:22 AM MASS SPECTROSCOPIST) Pathologist [facility] Neutrophil abs 4.0 1.5 - 6.5 K/cumm Imm gran abs 0.0 0.0 - 0.1 K/cumm [facility] Lymphocyte abs 1.6 0.8 - 3.3 K/cumm [facility] Monocyte abs 0.4 0.2 - 0.8 K/cumm [facility] Eosinophil abs 0.0 0.0 - 0.5 K/cumm [facility] Basophil abs 0.0 0.0 - 0.1 K/cumm [facility] Neutrophil pct 65.5 % [facility] Comment: Interpretive Data Percent cell count reference ranges are not reported, since discordance with absolute values may lead to misinterpretation of CBC data. Current Interpretive Data was last revised on 2018. Imm gran pct 0.3 % [facility] Comment: Interpretive Data Percent cell count reference ranges are not reported, since discordance with absolute values may lead to misinterpretation of CBC data. Current Interpretive Data was last revised on 2018. Lymphocyte pct 26.5 % [facility] Comment: Interpretive Data Percent cell count reference ranges are not reported, since discordance with absolute values may lead to misinterpretation of CBC data. Current Interpretive Data was last revised on 2018. Monocyte pct 6.7 % [facility] Comment: Interpretive Data Percent cell count reference ranges are not reported, since discordance with absolute values may lead to misinterpretation of CBC data. Current Interpretive Data was last revised on 2018. Eosinophil pct 0.3 % [facility] Comment: Interpretive Data Percent cell count reference ranges are not reported, since discordance with absolute values may lead to misinterpretation of CBC data. Current Interpretive Data was last revised on 2018. Basophil pct 0.7 % [facility] Comment: Interpretive Data Percent cell count reference ranges are not reported, since discordance with absolute values may lead to misinterpretation of CBC data. Current Interpretive Data was last revised on 2018. Blood 09/12/2024 2:22 AM MASS SPECTROSCOPIST 09/12/2024 2:32 AM MASS SPECTROSCOPIST Truong Maloney MD LAB BLOOD ORDERABLES Final Result LALITO MURILLO [address] [facility] Department [place] [address] * (ABNORMAL) CBC with auto differential (09/12/2024 2:22 AM MASS SPECTROSCOPIST) Pathologist [facility] WBC 6.2 3.8 - 9.9 K/cumm Hgb 12.3(L) 13.0 - 17.5 g/dL [facility] Hct 34.2(L) 38.9 - 50.3 % [facility] Plt 118(L) 150 - 400 K/cumm [facility] MPV 10.3 9.1 - 12.3 fL [facility] RBC 3.85(L) 4.30 - 5.80 M/cumm [facility] MCV 88.8 81.3 - 96.4 fL [facility] MCH 31.9 27.1 - 33.3 pg [facility] MCHC 36.0(H) 32.3 - 35.7 g/dL [facility] RDW CV 12.8 11.1 - 14.9 % [facility] RDW SD 41.4 35.7 - 48.1 fL [facility] NRBC abs 0.02(H) 0.00 - 0.01 K/cumm [facility] Blood 09/12/2024 2:22 AM MASS SPECTROSCOPIST 09/12/2024 2:32 AM MASS SPECTROSCOPIST Truong Maloney MD LAB BLOOD ORDERABLES Final Result [facility] [address] [facility] Department [place] [address] * (ABNORMAL) Comprehensive metabolic panel (09/12/2024 2:22 AM MASS SPECTROSCOPIST) [facility] Sodium 139 135 - 145 mmol/L Potassium, pl 3.8 3.3 - 4.9 mmol/L [facility] Chloride 106 97 - 110 mmol/L [facility] CO2 23 22 - 32 mmol/L [facility] Anion gap 10 2 - 15 mmol/L [facility] BUN 5(L) 6 - 25 mg/dL [facility] Creatinine 0.80 0.80 - 1.30 mg/dL [facility] Glucose 82 70 - 199 mg/dL [facility] Comment: Interpretive Data Fasting glucose >/= 126 [...] 2022. Calcium 8.8 8.5 - 10.3 mg/dL [facility] Bilirubin, total 1.0 0.1 - 1.2 mg/dL [facility] Protein, pl 6.2(L) 6.5 - 8.5 g/dL [facility] Albumin 3.8 3.5 - 5.0 g/dL [facility] Alk phos 71 40 - 130 Units/L [facility] ALT 46 7 - 55 Units/L [facility] AST 82(H) 10 - 50 Units/L [facility] Blood 09/12/2024 2:22 AM MASS SPECTROSCOPIST 09/12/2024 2:32 AM MASS SPECTROSCOPIST Truong Maloney MD LAB BLOOD ORDERABLES Final Result Performing Organization Address City/[facility] Co de Phone Number [address] [employer] [place] [address] * Troponin T high-sensitivity 2-hour (09/11/2024 11:42 PM MASS SPECTROSCOPIST) Trop T hs 7 <=22 ng/L Comment: Interpretive Data For further hscTnT resources including the diagnostic algorithm and an aid in interpretation, copy and paste this link: https://nrl.[employer].org/show/hsTrop Current Interpretive Data last revised 2020. Trop T hs delta 0 ng/L [facility] Trop T hs interp Insignificant [facility] Blood 09/11/2024 11:4 2 PM MASS SPECTROSCOPIST 09/12/2024 12:25 AM MASS SPECTROSCOPIST Truong Maloney MD LAB BLOOD ORDERABLES Final Result Performing Organization Address City/[facility]/ZIP Co de Phone Number [address] [employer] [place] [address] * Troponin T high-sensitivity series (baseline, 2hr, 4hr, 6hr) (09/11/2024 9:31 PM MASS SPECTROSCOPIST) Trop T hs 7 <=22 ng/L Comment: Interpretive Data For further hscTnT resources including the diagnostic algorithm and an aid in interpretation, copy and paste this link: https://nrl.[employer].org/show/hsTrop Current Interpretive Data last revised 2020. Blood 09/11/2024 9:31 PM MASS SPECTROSCOPIST 09/11/2024 9:34 PM MASS SPECTROSCOPIST Truong Maloney MD LAB BLOOD ORDERABLES Final Result [facility] Department [place] [address] * ECG 12 lead (09/11/2024 9:19 PM MASS SPECTROSCOPIST) Pathologist [facility] Ventricular Rate EKG/Min 98 BPM [facility] Atrial Rate [address] [facility] GA-Interval (MSEC) [address] [facility] QRS-Interval (MSEC) [address] [facility] QT-Interval (MSEC) [address] [facility] QTc [address] [facility] P [place] [address] [facility] R [place] [address] [facility] T [place] [address] [facility] Diagnosis Normal sinus rhythm Normal ECG When compared with ECG of 10-SEP-2024 12:51, No significant change was found Confirmed by JAMIR WOLF M.D. ([id number]) on 09/15/2024 9:53:32 AM [facility] 09/11/2024 9:19 PM MASS SPECTROSCOPIST 09/15/2024 9:53 AM MASS SPECTROSCOPIST Truong Maloney MD ECG ORDERABLES Alice l Result Performing Organization Address City/[facility]/ZIP Co de Phone Number [facility] * (ABNORMAL) Urinalysis reflex to microscopic and culture Urine (09/11/2024 1:10 PM MASS SPECTROSCOPIST) Color, ur Yellow Yellow Clarity, ur Clear Clear [facility] Specific gravity, ur 1.005 1.003 - 1.030 [facility] pH, urine 6.5 [facility] Comment: Interpretive Data U rine pH is affected by diet, medications, systemic acid-base disturbances, and renal tubular function. pH may affect urinary stone formation. For example, urine pH below 6.0 may help reduce the tendency for calcium phosphate stones and pH greater than 6.0 may reduce the tendency for uric acid stone formation. Source: [facility] Current Interpretive Data was last revised on 2017 Protein, ur ql 1+(A) Negative [facility] Glucose, ur ql Negative Negative [facility] Ketones, ur Negative Negative [facility] Bilirubin, ur Negative Negative [facility] Blood, ur Negative Negative [facility] Urobilinogen, ur 2.0(A) <2.0 mg/dL [facility] Nitrite, ur Negative Negative [facility] Leukocyte esterase, ur Negative Negative [facility] UA reflex comment Reflex to microscopic UA will be performed. [facility] Urine 09/11/2024 1:10 PM MASS SPECTROSCOPIST 09/11/2024 1:13 PM MASS SPECTROSCOPIST [facility] MICROBIOLOGY - GENERAL ORDERABLES Final Result [place] [id number] [facility] Department [place] [address] * (ABNORMAL) Drugs of Abuse Screen, Urine without Confirmation (09/11/2024 1:10 PM MASS SPECTROSCOPIST) Amphetamine, ur Not Detected CutOff 500ng/mL Comment: Interpretive Data - Amphetamines: Samples containing greater than 500 ng/mL d-methamphetamine or other cross-reacting amphetamine compounds are reported as positive. Amphetamine immunoassays are subject to significant false positive rates due to cross-reactivity of non-amphetamine drugs. Confirmatory testing required for definitive results. Current Interpretive Data was last reviewed 2023. Barbiturates, ur Not Detected CutOff 200ng/mL [facility] Comment: Interpretive Data - Barbiturates: Samples containing greater than 200 ng/mL secobarbital or other cross-reacting barbiturate compounds are reported as positive. False positive and false negative results are possible. Confirmatory testing required for definitive results. Current Interpretive Data was last reviewed 2023. Benzodiazepines, ur Screen Positive, presumptive (A) CutOff 100ng/mL [facility] Comment: Interpretive Data - Benzodiazepines: Samples containing greater than 100 ng/mL nordiazepam or other cross-reacting compounds are reported as positive. False positive and false negative results are possible. Confirmatory testing required for definitive results. Current Interpretive Data was last reviewed 2023. Cannabinoids, ur Screen Positive, presumptive (A) CutOff 50 ng/mL [facility] Comment: Interpretive Data - Cannabinoids: Samples containing greater than 50 ng/mL delta-9 THC -COOH or other cross- reacting compounds are reported as positive. False positive and false negative results are possible. Confirmatory testing required for definitive results. Current Interpretive Data was last reviewed 2023. Cocaine, ur Not Detected CutOff 150ng/mL [facility] Comment: Interpretive Data - Cocaine: Samples containing greater than 150 ng/mL benzoylecgonine or other cross- reacting compounds are reported as positive. False positive and false negative results are possible. Confirmatory testing required for definitive results. Current Interpretive Data was last reviewed 2023. Fentanyl, Ur Not Detected CutOff 5 ng/mL [facility] Comment: Interpretive Data - Fentanyl: Samples containing greater than 5 ng/mL norfentanyl, fentanyl, or other cross-reacting fentanyl compounds are reported as positive. False positive and false negative results are possible. Confirmatory testing required for definitive results. Current Interpretive Data was last reviewed 2023. Methadone, ur Not Detected CutOff 300ng/mL [facility] Comment: Interpretive Data - Methadone: Samples containing greater than 300 ng/mL d,l-methadone or other cross-reacting compounds are reported as positive. False positive and false negative results are possible. Confirmatory testing required for definitive results. Current Interpretive Data was last reviewed 2023. Opiates, ur Not Detected CutOff 300ng/mL [facility] Comment: Interpretive Data - Opiates: Samples containing greater than 300 ng/mL morphine or other cross-reacting compounds are reported as positive. False positive and false negative results are possible. Confirmatory testing required for definitive results. Current Interpretive Data was last reviewed 2023. Oxycodone, ur Not Detected CutOff 100ng/mL [facility] Comment: Interpretive Data - Oxycodone: Samples containing greater than 100 ng/mL oxycodone or other cross-reacting compounds are reported as positive. False positive and false negative results are possible. Confirmatory testing required for definitive results. Current Interpretive Data was last reviewed 2023. Phencyclidine, ur Not Detected CutOff 25 ng/mL [facility] Comment: Interpretive Data - Phencyclidine: Samples containing greater than 25 ng/mL phencyclidine or other cross-reacting compounds are reported as positive. False positive and false negative results are possible. Confirmatory testing required for definitive results. Current Interpretive Data was last reviewed 2023. Urine Creatinine 45 mg/dL [facility] Comment: Interpretive Data Urine Creatinine: < 10 mg/dL is extremely dilute = or > 10 but < 20 mg/dL is dilute = or > 20 mg/dL is normal Current Interpretive Data was last revised on 2017. Urine 09/11/2024 1:10 PM MASS SPECTROSCOPIST 09/11/2024 1:13 PM MASS SPECTROSCOPIST Narrative [facility] - 09/11/2024 1:40 PM MASS SPECTROSCOPIST Drug of Abuse screening is performed by immunoassay for medical purposes only. This is not to be used for Pain Management purposes. Ginger PELLETIER LAB URINE ORDERABL ES Final Result [place] [address] [facility] Department [place] [address] * (ABNORMAL) Urinalysis, microscopic only (09/11/2024 1:10 PM MASS SPECTROSCOPIST) WBC, ur 0-5 0 - 5 /HPF RBC, ur 0-2 0 - 2 /HPF [facility] Epithelial cells, squamous, ur 1-5 0 - 5 /HPF [facility] Mucous, ur Present(A) [facility] Amorphous crystals, ur Trace(A) [facility] Culture Reflex Comment Reflex conditions for urine culture (WBC >10) not met. [facility] Urine 09/11/2024 1:10 PM MASS SPECTROSCOPIST 09/11/2024 1:13 PM MASS SPECTROSCOPIST Adecrispinrosamaria Tolulade Adesida PA LAB URINE ORDERABL ES Final Result Performing Organization Address [facility] de Phone Number LALITO [address] [address] * eGFR (09/11/2024 1:03 PM MASS SPECTROSCOPIST) Pathologist [facility] eGFR >90 >=60 mL/min/1. 73 m2 Comment: [...] last reviewed 2021. Blood 09/11/2024 1:03 PM MASS SPECTROSCOPIST 09/11/2024 1:05 PM MASS SPECTROSCOPIST Ginger Choida PA LAB BLOOD ORDERABL ES Final Result Performing Organization Address City/[facility]/ZIP Co de Phone Number LALITO [address] [place] [address] * Differential, auto (09/11/2024 1:03 PM MASS SPECTROSCOPIST) [facility] Neutrophil abs 3.6 1.5 - 6.5 K/cumm Imm gran abs 0.0 0.0 - 0.1 K/cumm [facility] Lymphocyte abs 1.3 0.8 - 3.3 K/cumm [facility] Monocyte abs 0.3 0.2 - 0.8 K/cumm [facility] Eosinophil abs 0.0 0.0 - 0.5 K/cumm [facility] Basophil abs 0.1 0.0 - 0.1 K/cumm [facility] Neutrophil pct 67.8 % [facility] Comment: Interpretive Data Percent cell count reference ranges are not reported, since discordance with absolute values may lead to misinterpretation of CBC data. Current Interpretive Data was last revised on 2018. Imm gran pct 0.2 % [facility] Comment: Interpretive Data Percent cell count reference ranges are not reported, since discordance with absolute values may lead to misinterpretation of CBC data. Current Interpretive Data was last revised on 2018. Lymphocyte pct 24.3 % [facility] Comment: Interpretive Data Percent cell count reference ranges are not reported, since discordance with absolute values may lead to misinterpretation of CBC data. Current Interpretive Data was last revised on 2018. Monocyte pct 6.5 % [facility] Comment: Interpretive Data Percent cell count reference ranges are not reported, since discordance with absolute values may lead to misinterpretation of CBC data. Current Interpretive Data was last revised on 2018. Eosinophil pct 0.2 % [facility] Comment: Interpretive Data Percent cell count reference ranges are not reported, since discordance with absolute values may lead to misinterpretation of CBC data. Current Interpretive Data was last revised on 2018. Basophil pct 1.0 % [facility] Comment: Interpretive Data Percent cell count reference ranges are not reported, since discordance with absolute values may lead to misinterpretation of CBC data. Current Interpretive Data was last revised on 2018. Blood 09/11/2024 1:03 PM MASS SPECTROSCOPIST 09/11/2024 1:05 PM MASS SPECTROSCOPIST Ginger PELLETIER LAB BLOOD ORDERABL ES Final Result LALITO MURILLO [address] [facility] Department [place] [address] * (ABNORMAL) CBC with auto differential (09/11/2024 1:03 PM MASS SPECTROSCOPIST) WBC 5.2 3.8 - 9.9 K/cumm Hgb 14.3 13.0 - 17.5 g/dL [facility] Hct 39.6 38.9 - 50.3 % [facility] Plt 146(L) 150 - 400 K/cumm [facility] MPV 9.8 9.1 - 12.3 fL [facility] RBC 4.55 4.30 - 5.80 M/cumm [facility] MCV 87.0 81.3 - 96.4 fL [facility] MCH 31.4 27.1 - 33.3 pg [facility] MCHC 36.1(H) 32.3 - 35.7 g/dL [facility] RDW CV 12.4 11.1 - 14.9 % [facility] RDW SD 39.7 35.7 - 48.1 fL [facility] NRBC abs 0.00 0.00 - 0.01 K/cumm [facility] Blood 09/11/2024 1:03 PM MASS SPECTROSCOPIST 09/11/2024 1:05 PM MASS SPECTROSCOPIST Adebowale Tolulade Adesida PA LAB BLOOD ORDERABL ES Final Result [address] [employer] [place] [address] * Phosphorus (09/11/2024 1:03 PM MASS SPECTROSCOPIST) [facility] Phosphorus, pl 2.4 2.3 - 4.5 mg/dL Blood 09/11/2024 1:03 PM MASS SPECTROSCOPIST 09/11/2024 1:05 PM MASS SPECTROSCOPIST [facility] Tolulade Adesida PA LAB BLOOD ORDERABL ES Final Result Performing Organization Address City/[facility]/ZIP Co de Phone Number [address] [employer] [place] [address] * Magnesium (09/11/2024 1:03 PM MASS SPECTROSCOPIST) [facility] Magnesium 1.6 1.4 - 2.5 mg/dL Blood 09/11/2024 1:03 PM MASS SPECTROSCOPIST 09/11/2024 1:05 PM MASS SPECTROSCOPIST [facility] Zenaidajohn Miki DC LAB BLOOD ORDERABL ES Final Result Performing Organization Address [facility] de Phone Number A[address] [address] * (ABNORMAL) Ethanol (09/11/2024 1:03 PM MASS SPECTROSCOPIST) Pathologist [facility] Ethanol 84(H) <=10 mg/dL Comment: Interpretive Data Legal limit of intoxication > or = 80 mg/dL Levels > or = 400 mg/dL are potentially TOXIC. Current interpretive data was last revised on 2018. Blood 09/11/2024 1:0 3 PM MASS SPECTROSCOPIST 09/11/2024 1:05 PM MASS SPECTROSCOPIST [facility] Zenaidajohn Miki DC LAB BLOOD ORDERABL ES Final Result Performing Organization Address [facility] de Phone Number [address] [address] * (ABNORMAL) Comprehensive metabolic panel (09/11/2024 1:03 PM MASS SPECTROSCOPIST) Pathologist [facility] Sodium 136 135 - 145 mmol/L Potassium, pl 3.0(L) 3.3 - 4.9 mmol/L [facility] Chloride 95(L) 97 - 110 mmol/L [facility] CO2 20(L) 22 - 32 mmol/L [facility] Anion gap 21(H) 2 - 15 mmol/L [facility] BUN 5(L) 6 - 25 mg/dL [facility] Creatinine 0.79(L) 0.80 - 1.30 mg/dL [facility] Glucose 113 70 - 199 mg/dL [facility] Comment: Interpretive Data Fasting glucose >/= 126 [...] 2022. Calcium 10.0 8.5 - 10.3 mg/dL [facility] Bilirubin, total 1.1 0.1 - 1.2 mg/dL [facility] Protein, pl 8.2 6.5 - 8.5 g/dL [facility] Albumin 4.7 3.5 - 5.0 g/dL [facility] Alk phos 94 40 - 130 Units/L [facility] ALT 72(H) 7 - 55 Units/L [facility] AST 158(H) 10 - 50 Units/L [facility] Blood 09/11/2024 1:03 PM MASS SPECTROSCOPIST 09/11/2024 1:05 PM MASS SPECTROSCOPIST Ginger PELLETIER LAB BLOOD ORDERABL ES Final Result L[place]IT[place] [address] [facility] Department [place] [address] * ECG 12 lead (09/10/2024 12:51 PM MASS SPECTROSCOPIST) Ventricular Rate EKG/Min 119 BPM [facility] Atrial Rate [address] [facility] GA-Interval (MSEC) 134 ms [facility] QRS-Interval (MSEC) 84 ms [facility] QT-Interval (MSEC) 306 ms [facility] QTc 430 ms [facility] P [place] [address] [facility] R [place] [address] [facility] T [place] 33 degrees [facility] Diagnosis Sinus tachycardia Possible Left atrial enlargement When compared with ECG of 05-OCT-2023 08:44, No significant change was found Confirmed by SULTAN GALLAGHER M.D. ([id number]) on 09/10/2024 4:41:17 PM [facility] 09/10/2024 12:5 1 PM MASS SPECTROSCOPIST 09/10/2024 4:41 PM MASS SPECTROSCOPIST us Jose Carlos Kenyon DO ECG ORDERABLES Final Resul t [facility] * eGFR (09/10/2024 12:41 PM MASS SPECTROSCOPIST) eGFR >90 >=60 mL/min/1. 73 m2 Comment: [...] was last reviewed 2021. Testing performed by: [address] [address] Blood 09/10/2024 12:4 1 PM MASS SPECTROSCOPIST 09/10/2024 12:50 PM MASS SPECTROSCOPIST Jose Carlos Kenyon DO LAB BLOOD ORDERABLES Final Result Performing Organization Address City/[facility] Co de Phone Number LALITO [address] [facility] Department of Laboratories [place], [place] [id number] * Differential, auto (09/10/2024 12:41 PM MASS SPECTROSCOPIST) Neutrophil abs 4.4 1.5 - 6.5 K/cumm Comment:Testing performed by : [address] [address] Imm gran abs 0.0 0.0 - 0.1 K/cumm LALITO MURILLO Comment:Testing performed by : [address] [address] Lymphocyte abs 2.2 0.8 - 3.3 K/cumm [facility] Comment:Testing performed by : [address] [address] Monocyte abs 0.3 0.2 - 0.8 K/cumm [facility] Comment:Testing performed by : [address], [place]., [address] Eosinophil abs 0.0 0.0 - 0.5 K/cumm [facility] Comment:Testing performed by : [address] [address] Basophil abs 0.1 0.0 - 0.1 K/cumm [facility] Comment:Testing performed by : [address] [address] Neutrophil pct 62.8 % [facility] Comment: Interpretive Data Percent cell count reference ranges are not reported, since discordance with absolute values may lead to misinterpretation of CBC data. Current Interpretive Data was last revised on 2018. Testing performed by: [address] [address] Imm gran pct 0.1 % [facility] Comment: Interpretive Data Percent cell count reference ranges are not reported, since discordance with absolute values may lead to misinterpretation of CBC data. Current Interpretive Data was last revised on 2018. Testing performed by: [address] [address] Lymphocyte pct 31.6 % [facility] Comment: Interpretive Data Percent cell count reference ranges are not reported, since discordance with absolute values may lead to misinterpretation of CBC data. Current Interpretive Data was last revised on 2018. Testing performed by: [address] [address] Monocyte pct 4.5 % [facility] Comment: Interpretive Data Percent cell count reference ranges are not reported, since discordance with absolute values may lead to misinterpretation of CBC data. Current Interpretive Data was last revised on 2018. Testing performed by: [address] [address] Eosinophil pct 0.0 % [facility] Comment: Interpretive Data Percent cell count reference ranges are not reported, since discordance with absolute values may lead to misinterpretation of CBC data. Current Interpretive Data was last revised on 2018. Testing performed by: [address] [address] Basophil pct 1.0 % LALITO MURILLO Comment: Interpretive Data Percent cell count reference ranges are not reported, since discordance with absolute values may lead to misinterpretation of CBC data. Current Interpretive Data was last revised on 2018. Testing performed by: [address] [address] Blood 09/10/2024 12:4 1 PM MASS SPECTROSCOPIST 09/10/2024 12:50 PM MASS SPECTROSCOPIST Jose Carlos Kenyon DO LAB BLOOD ORDERABLES Final Result Performing Organization Address [facility] Co de Phone Number LALITO [address] [place] [address] * Thyroid Function [place] (09/10/2024 12:41 PM MASS SPECTROSCOPIST) Pathologist [facility] TSH 0.52 0.30 - 4.20 mcIUnit/mL Comment:Testing performed by : [address] [address] Blood 09/10/2024 12:4 1 PM MASS SPECTROSCOPIST 09/10/2024 12:50 PM MASS SPECTROSCOPIST Jose Carlos Kenyon DO LAB BLOOD ORDERABLES Final Result Performing Organization Address City/[facility] Co de Phone Number AIDA[address] [address] * (ABNORMAL) CBC with auto differential (09/10/2024 12:41 PM MASS SPECTROSCOPIST) Pathologist [facility] WBC 7.1 3.8 - 9.9 K/cumm Comment:Testing performed by : [address] [address] Hgb 16.2 13.0 - 17.5 g/dL LALITO MURILLO Comment:Testing performed by : [address] [address] Hct 44.0 38.9 - 50.3 % LALITO MURILLO Comment:Testing performed by : [address], [address] Plt 220 150 - 400 K/cumm LALITO MURILLO Comment:Testing performed by : [address], [address] MPV 9.3 9.1 - 12.3 fL LALITO MURILLO Comment:Testing performed by : [address], [address] RBC 5.02 4.30 - 5.80 M/cumm LALITO MURILLO Comment:Testing performed by : [address], [address] MCV 87.6 81.3 - 96.4 fL [facility]O Comment:Testing performed by : [address], [address] MCH 32.3 27.1 - 33.3 pg LAL[facility]O Comment:Testing performed by : [address], [address] MCHC 36.8(H) 32.3 - 35.7 g/dL [facility]O Comment:Testing performed by : [address], [address] RDW CV 12.8 11.1 - 14.9 % [facility]O Comment:Testing performed by : [address], [address] RDW SD 41.2 35.7 - 48.1 fL [facility]O Comment:Testing performed by : [address], [address] NRBC abs 0.03(H) 0.00 - 0.01 K/cumm [facility]O Comment:Testing performed by : [address], [address] Blood Venous blood specimen / Unknown 09/10/2024 12:41 PM MASS SPECTROSCOPIST 09/10/2024 12:50 PM MASS SPECTROSCOPIST Jose Carlos Kenyon DO LAB BLOOD ORDERABLES Final Result LALITO MURILLO [address] [place] [address] * (ABNORMAL) Ethanol (09/10/2024 12:41 PM MASS SPECTROSCOPIST) Ethanol 299(H) <=10 mg/dL Comment: Interpretive Data Legal limit of intoxication > or = 80 mg/dL Levels > or = 400 mg/dL are potentially TOXIC. Current interpretive data was last revised on 2018. Testing performed by: [address] [address] Blood 09/10/2024 12:4 1 PM MASS SPECTROSCOPIST 09/10/2024 12:50 PM MASS SPECTROSCOPIST Jose Carlos Kenyon DO LAB BLOOD ORDERABLES Final Result Performing Organization Address [facility] Co de Phone Number LALITO [address] [address] * Acetaminophen level (09/10/2024 12:41 PM MASS SPECTROSCOPIST) [facility] Acetaminophen <5 <=5 mcg/mL Comment: Interpretive Data Significant hepatic injury may occur and treatment with n-acetyl cysteine is generally recommended if the acetaminophen level exceeds: 150 mcg/mL at 4 hours after ingestion 75 mcg/mL at 8 hours after ingestion 38 mcg/mL at 12 hours after ingestion 19 mcg/mL at 16 hours after ingestion Consult toxicology or poison control ([phone]) for unknown ingestion time. Current interpretive data was last revised 2023. Testing performed by: [address] [address] Blood 09/10/2024 12:4 1 PM MASS SPECTROSCOPIST 09/10/2024 12:50 PM MASS SPECTROSCOPIST Jose Carlos Kenyon DO LAB BLOOD ORDERABLES Final Result Performing Organization Address City/[facility] Co de Phone Number LALITO [facility] [place] [address] * Salicylate level (09/10/2024 12:41 PM MASS SPECTROSCOPIST) [facility] Salicylate <1.0 <=1.0 mg/dL Comment: Interpretive Data Toxic: 30 mg/dL or greater. Current interpretive data was last revised 2023. Testing performed by: [address] [address] Blood 09/10/2024 12:4 1 PM MASS SPECTROSCOPIST 09/10/2024 12:50 PM MASS SPECTROSCOPIST Jose Carlos Kenyon DO LAB BLOOD ORDERABLES Final Result [facility] [address] [facility] Department [place] [address] * (ABNORMAL) Comprehensive metabolic panel (09/10/2024 12:41 PM MASS SPECTROSCOPIST) [facility] Sodium 139 135 - 145 mmol/L Comment:Testing performed by : [address] [address] Potassium, pl 3.4 3.3 - 4.9 mmol/L [facility]O Comment:Testing performed by : [address] [address] Chloride 96(L) 97 - 110 mmol/L [facility] Comment:Testing performed by : [address] [address] CO2 22 22 - 32 mmol/L [facility] Comment:Testing performed by : [address] [address] Anion gap 21(H) 2 - 15 mmol/L [facility] Comment:Testing performed by : [address] [address] BUN 6 6 - 25 mg/dL [facility] Comment:Testing performed by : [address] [address] Creatinine 0.80 0.80 - 1.30 mg/dL [facility] Comment:Testing performed by : [address] [address] Glucose 170 70 - 199 mg/dL LALITO [...] was last revised 2022. Testing performed by: [address] [address] Calcium 9.6 8.5 - 10.3 mg/dL [facility] Comment:Testing performed by : [address] [address] Bilirubin, total 0.5 0.1 - 1.2 mg/dL [facility] Comment:Testing performed by : [address] [address] Protein, pl 8.8(H) 6.5 - 8.5 g/dL [facility] Comment:Testing performed by : [address] [address] Albumin 4.9 3.5 - 5.0 g/dL [facility] Comment:Testing performed by : [address] [address] Alk phos 98 40 - 130 Units/L [facility] Comment:Testing performed by : [address] [address] ALT 63(H) 7 - 55 Units/L [facility] Comment:Testing performed by : [address] [address] AST 116(H) 10 - 50 Units/L [facility] Comment:Testing performed by : [address] [address] Blood 09/10/2024 12:4 1 PM MASS SPECTROSCOPIST 09/10/2024 12:50 PM MASS SPECTROSCOPIST us Jose Carlos Kenyon DO LAB BLOOD ORDERABLES Final Result L[facility]ITO [address] [facility] Department [place] [address] * Hepatitis panel, acute Blood (10/05/2023 7:18 PM MASS SPECTROSCOPIST) Hep A IgM Nonreactive Nonreactive [facility]O Comment: [...] Nonreactive Nonreactive [facility]O Blood 10/05/2023 7:18 PM MASS SPECTROSCOPIST 10/05/2023 8:35 PM MASS SPECTROSCOPIST Gabino Boothe MD LAB MICROBIOLOGY - GENERAL ORDERABLES Final Result LALITO [address] [facility] Department [place] [address] from Last 3 Months or Most Recently Relevant to Health Maintenance Insurance [employer] COVENTR HMO/POS [employer] COVENTRY HMO/POS Advance Directives For more information, please contact: [phone] * Full Code (Latest Code Status on [...] 10:49 AM 12/09/2021 11:27 PM Care Teams Manager Advanced Relationship Specialty Start Date End Date Mitchel Garibay DO [address] [facility] [address] [place] [address] PCP - General Family Medicine 01/22/19
--- OUTSIDE RECORDS SUMMARY | 2024-11-28 03:06 | XMS_ITS | Encounter Summary ---
Author Organization [facility] Health Address [address] [facility] [place] [address] Care Team Providers Care Planer Off Bearer Name Role Phone Mitchel Gariaby Primary Care Provider [phone] Encounter Details Date Type Department Care Team (Late st Contact Info) Description 03/18/2021 11:54 AM CDT Hospital Encounter [facility] [address] [place] [id number] Fabio Gu MD [facility] [address] [place] [phone] [place] [address] [facility] [address] [address] [employer] Social History Tobacco Use Types [...] and heating? Not hard at all 11/23/2024 [facility] - Occupational Stress [...] time in the past 12 [address] [place], were you homeless or living in a penitentiary (including now)? No 11/23/2024 Sex and Gender [...] Time MRSA 08/09/2024 08/09/2024 10/02/2024 9:59 AM LOKIE DRIVER MRSA Hx Comment:08/09/24 - wound 10/02/2024 10/02/2024 COVID-19 Under Investigation 11/21/2024 11/21/2024 11/21/2024 12:07 PM LOKIE DRIVER documented as of this encounter Care Teams Planer Off Bearer Relationship Specialty Start Date End Date Mitchel Garibay DO PCP - General Family Medicine 03/13/19 documented as of this encounter
--- OUTSIDE RECORDS SUMMARY | 2024-11-28 03:06 | XMS_ITS | Clinical Summary ---
Author Organization [facility] Address [address] [place] [address] Care Team Providers Care Montessori Teacher Name Role Phone Mitchel Garibay DO Primary Care Provider [phone] Allergies Active Allergy Reactions Criticality Noted Date [...] 4:26 PM 03/25/2021 1:29 PM Care Teams Montessori Teacher Relationship Specialty Start Date End Date Mitchel Garibay DO [address] [facility] [address] [place] [address] PCP - General Family Medicine 03/19/21
--- OUTSIDE RECORDS SUMMARY | 2024-11-28 03:06 | XMS_ITS | Encounter Summary ---
Author Organization [facility] Healthcare Address [address] [place] [address] Care Team Providers Care Civil Geotechnical Engineer Name Role Phone Mitchel Garibay DO Primary Care Provider [phone] Reason for Visit * Reason Onset Date Comments Medical Question/Miscellaneous 10/28/2024 Encounter Details Date Type Department Care Team (Late st Contact Info) Description 10/28/2024 Telephone [facility] Medical Group Primary Care at [facility] [address] [place] [address] Mitchel Garibay DO [address] [facility] [address] [place] [address] Medical Question/Miscellaneous Social History Tobacco Use Types Packs/Day Years Used Date Smoking Tobacco: Some Days Smokeless Tobacco: Current Comments:1 pack per month Alcohol Use Standard Drinks/Week Comments Yes 0 (1 standard drink = 0.6 oz pur e alcohol) frequently - alcoholic [facility] Utilities Answer Date Recorded In the past 12 months has [employer] electric, gas, oil, or water company threatened [...] often do you attend chur ch or rastafarian services? Never 09/12/2024 Do you belong to any clubs o r organizations such as denominational groups, unions, fraternal or athletic groups, or [...] place to sleep or slept in a halfway (including now)? No 10/05/2023 Housing Stability Vital Sign Answer Aldo e Recorded In the last 12 months, was t here a time when you were not able to pay the mortgage or rent on time? No 09/12/2024 In the past 12 months, how m any times have you moved where you were living? 0 09/12/2024 At any time in the past 12 m [facility], were you homeless or living in a halfway (including now)? No 09/12/2024 Personal Safety Answer Date Recorded Have you ever been in or are you currently in a harmful physical or emotional relationship or is someone making you feel afraid or unsafe? 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 Please resend. IZATION MANAGEMENT RN * Telephone Encounter - Juliana Jaeger - 10/28/2024 3:05 PM [facility]NAGEMENT RN * Telephone Encounter - Summer Pruett - [...] message need to be routed? Yes-Action Needed IZATION MANAGEMENT RN documented in this encounter Plan of Treatment Not on file documented as of this encounter Visit Diagnoses Not on filedocumented in this encounter Additional Health Concerns Infection Onset Date Last Indicated Resolved Time MRSA Comment:Added from external infection. Source: [facility] [employer] 11/27/24 08/09/2024 11/27/2024 6 :44 AM UTILIZATION MANAGEMENT RN documented as of this encounter Care Teams Civil Geotechnical Engineer Relationship Specialty Start Date End Date Mitchel Garibay DO [address] [facility] [address] [place] [address] PCP - General Family Medicine 01/22/19 documented as of this encounter
--- OUTSIDE RECORDS SUMMARY | 2024-11-28 03:06 | XMS_ITS | Encounter Summary ---
Author Organization [facility] Healthcare Address [address] [place] [address] Care Team Providers Care Mental Retardation Aide Name Role Phone Mitchel Garibay DO Primary Care Provider [phone] Reason for Visit * Reason Comments Alcohol Intoxication Encounter Details Date Type Department Care Team (Late st Contact Info) Description 11/28/2024 3:00 AM BEAN DUMPER - Present Emergency [address] [address] Social History Tobacco Use Types Packs/Day Years Used Date Smoking Tobacco: Some Days Smokeless Tobacco: Current Comments:1 pack per month Alcohol Use Standard Drinks/Week Comments Yes 0 (1 standard drink = 0.6 oz pur e alcohol) frequently - alcoholic [facility] Utilities Answer Date Recorded In the past 12 months has [employer] electric, gas, oil, or water company threatened [...] any clubs o r organizations such as gnosticist groups, unions, fraternal or athletic groups, or [...] place to sleep or slept in a senior living (including now)? No 10/05/2023 Housing Stability Vital Sign Answer Aldo e Recorded In the last 12 months, was t here a time when you were not able to pay the mortgage or rent on time? No 09/12/2024 In the past 12 months, how m any times have you moved where you were living? 0 09/12/2024 At any time in the past 12 m [facility], were you homeless or living in a senior living (including now)? No 09/12/2024 Personal Safety Answer Date Recorded Have you ever been in or are you currently in a harmful physical or emotional relationship or is someone making you feel afraid or unsafe? 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 Not on file Not on file documented as of this encounter Last Filed Vital Signs Vital Sign Reading Time Taken Comments Blood Pressure 148/130 11/28/2024 2:53 AM BEAN DUMPER Pulse 141 11/28/2024 2:53 AM BEAN DUMPER Temperature 36.9 C (98.4 F) 11/28/2024 2:53 AM BEAN DUMPER Respiratory Rate 18 11/28/2024 2:53 AM BEAN DUMPER Oxygen Saturation 98% 11/28/2024 2:53 AM BEAN DUMPER Inhaled Oxygen Concentration - - Weight 97 kg (213 lb 13.5 oz) 11/28/2024 2:53 AM BEAN DUMPER Height 188 cm (6' 2.02 ) 11/28/2024 2:53 AM BEAN DUMPER Body Mass Index 27.44 11/28/2024 2:53 AM BEAN DUMPER documented in this encounter Plan of Treatment Not on file documented as of this encounter Visit Diagnoses Not on filedocumented in this encounter Active and Recently Administered Medications Times are shown in BEAN DUMPER. Scheduled Medication Order 11/26/2024 11/27/2024 11/28/2024 LORazepam (ATIVAN) 2 mg in sodium chloride 0.9% (further dilution required) injection 2 mg, intravenous, Once, On Mallorie 11/28/24 at 0303, For 1 dose, Withdraw ordered dose amount then dilute with equal volume of 0.9% sodium chloride. Administer total volume to patient. Do not exceed a rate of 2 mg/minute. 0303 (Due) documented in this encounter Orders Medications Ordered That Anish ht Not Have Been Administered Count Last Ordered Date First Ordered Date LORazepam (ATIVAN) 2 mg in s odium chloride 0.9% (further dilution required) injection 1 11/28/2024 Precaution Count Last Ordered Date First Orde red Date FALL PRECAUTIONS 1 11/28/2024 documented in this encounter Care Teams Mental Retardation Aide Relationship Specialty Start Date End Date Mitchel Garibay DO [address] [place] [address] PCP - General Family Medicine 01/22/19 documented as of this encounter
== END 2024-11-28 02:25 | disposition left against medical advice (07) ==
LOC: ANHED 03:03
PROVIDERS: Emergency Provider Emergency Medicine
DX: F10.20 Alcohol dependence, uncomplicated (principal); Y90.9 Presence of alcohol in blood, level not specified; F41.8 Other specified anxiety disorders; Z90.5 Acquired absence of kidney; F17.210 Nicotine dependence, cigarettes, uncomplicated; Z79.899 Other long term (current) drug therapy
CPT/HCPCS: 99281

== ENCOUNTER 2025-02-20 14:22 | Outpatient (CLI) | payer OTHER, SELFPAY ==
--- NOTE | ~2025-02-20 | US_ITS ---
Abdominal Sonogram: Real-time sonographic imaging of the abdomen was performed. Clinical History: Abnormal LFTs Findings: The liver appears minimally echogenic with no evidence of mass lesion or bile duct dilatat ion. Main portal vein demonstrates normal direction of flow. The spleen is normal in size without howard dence of focal lesion. The gallbladder is well distended, and appears normal with no evidence of gal lstone or wall thickening. The common bile duct measures 5 mm. The visualized pancreas, aorta, and I VC are unremarkable. The right kidney is not visualized. The left kidney measures 12.8 cm. There is no hydronephrosis or renal calculus. Impression: Possible diffuse fatty infiltration of liver. Status post right nephrectomy. Reviewed, dictated and finalized at location . Impression: Possible diffuse fatty infiltration of liver. Status post right nephrectomy.
== END 2025-02-20 14:23 | disposition home or self-care (01) ==
LOC: MICIMG 14:22
DX: K76.0 Fatty (change of) liver, not elsewhere classified (principal); R79.89 Other specified abnormal findings of blood chemistry; R10.84 Generalized abdominal pain
CPT/HCPCS: 76700